=== PATIENT | male | born 1950 | race Caucasian/White ===

== ENCOUNTER 2023-07-28 10:00 | Outpatient (OUT) | payer MEDICARE, OTHER, SELFPAY ==
--- NOTE | 2023-07-28 10:08 | ECG_ITS ---
[facility] Test Date: 2023-07-28 Pat Name: MONTSE MARTINEZ Department: Room: - Gender: Male Event Set Up Specialist: : 1950 Requested By: MARIN DAHL Order Number: [id number] Reading MD: EVELYNE ORDONEZ Measurements Intervals [place] Rate: 52 P: 50 AK: 188 QRS: 34 QRSD: 109 T: 35 QT: 424 QTc: 395 Interpretive Statements SINUS BRADYCARDIA No previous ECG available for comparison Electronically Signed On 07-29-2023 7:09:12 EST by EVELYNE ORDONEZ
--- NOTE | 2023-07-28 10:49 | PM.PRESUREVA ---
History of Present Illness History of Present Illness Chief complaint: L KIDNEY STONE Narrative: Patient presents for preadmission testing. The patient states in early June he had an episode of abdominal pain, flank pain, and nausea. It was determined that the patient had kidney stones. The patient states since that time he's had a few twinges of flank pain, but really has not had any urinary complaints. He denies hematuria, dysuria, fever, nausea, vomiting, or any other complaints. Review of Systems ROS Narrative REVIEW OF SYSTEMS: Negative except as stated in HPI, ten or more systems reviewed. Constitutional: No fever , chills, weakness ENT: No sore throat or epistaxis Cardiovascular: No edema, chest pain, palpitations, or activity intolerance Respiratory: No shortness of breath, cough, or wheezing Musculoskeletal: No joint pain or swelling Gastrointestinal: No abdominal pain, constipation, diarrhea, or vomiting Genitourinary: No dysuria or hematuria Neurological: No numbness, tingling, weakness, or headache Psychiatric: No mood changes PFSH PFSH Medical History (Updated 07/28/23 @ 10:31 by Queta Jordan NP) Atrial fibrillation ?I48.91 - Unspecified atrial fibrillation (ICD-10) COVID-19 ?U07.1 - COVID-19 (ICD-10) Diverticulosis ?K57.90 - Diverticulosis of intestine, part unspecified, without perforation or abscess without bleeding (ICD-10) High cholesterol ?E78.00 - Pure hypercholesterolemia, unspecified (ICD-10) History of cardioversion ?Z92.89 - Personal history of other medical treatment (ICD-10) Hypertension ?I10 - Essential (primary) hypertension (ICD-10) Hypothyroidism ?E03.9 - Hypothyroidism, unspecified (ICD-10) Kidney stones ?N20.0 - Calculus of kidney (ICD-10) Seasonal allergies ?J30.2 - Other seasonal allergic rhinitis (ICD-10) Surgical History (Updated 07/28/23 @ 10:31 by Queta Jordan NP) History of arthroscopy of shoulder ?Z98.890 - Other specified postprocedural states (ICD-10) History of colonoscopy ?Z98.890 - Other specified postprocedural states (ICD-10) History of hernia repair ?Z98.890 - Other specified postprocedural states (ICD-10) ?Z87.19 - Personal history of other diseases of the digestive system (ICD-10) S/P cystoscopy ?Z98.890 - Other specified postprocedural states (ICD-10) Family History (Updated 07/28/23 @ 10:31 by Queta Jordan NP) Other Cerebral hemorrhage Family history of diabetes mellitus Family history of heart disease Family history of myocardial infarction Family history of pancreatic cancer Social History (Updated 07/28/23 @ 10:25 by Queta Jordan NP) Within the past year, how often did you have a drink containing alcohol: never Score interpretation: A score less than 4 is consistent with normal alcohol consumption. Smoking status: Former smoker Non-prescribed substance use: denies use Highest level of school completed/degree received: high school graduate Meds Home Medications and Allergies Home Medications Medication Instructions Recorded Confirmed Type ascorbic acid (vitamin C) 500 mg mg PO 07/28/23 History capsule aspirin 81 mg tablet,delayed 81 mg PO DAILY 07/28/23 07/28/23 History release (Adult Aspirin Regimen) fiber cap PO 07/28/23 History levothyroxine 50 mcg tablet 50 mcg PO DAILY 07/28/23 07/28/23 History losartan 25 mg tablet 25 mg PO DAILY 07/28/23 07/28/23 History multivitamin (Daily Multi-Vitamin 1 tab PO DAILY 07/28/23 07/28/23 History tablet) rosuvastatin 20 mg tablet 20 mg PO DAILY 07/28/23 07/28/23 History saw palmetto 450 mg capsule 450 mg PO BID 07/28/23 07/28/23 History Allergies Allergy/AdvReac Type Severity Reaction Status Date / Time No Known Drug Allergies Allergy Verified 07/28/23 10:18 Exam Narrative Exam Narrative: Constitutional: Awake, alert, comfortable, well-appearing, nontoxic, interactive, vital signs as charted Head: Normocephalic, atraumatic Neck: Supple, normal appearance, normal range of motion, no meningeal signs, no lymphadenopathy Respiratory: No respiratory distress, breath sounds clear Cardiovascular: Regular rate and rhythm, strong and regular heart tones Abdomen: Nontender, normal bowel sounds, soft, no CVA tenderness Musculoskeletal: Normal gait, no swelling or edema Skin: No rashes or induration, no lesions, only visible skin inspected Neuro: No neurological deficits, normal sensation Psychiatric: Oriented ?3, normal affect Assessment and Plan Assessment and Plan (1) Kidney stones: Plan Left ESWL, possible cystoscopy, left stent placement scheduled with Dr. Coffey 08/07/2023.
[2023-07-28 11:05] LABS: Anion Gap 8.3; BUN Creatinine Ratio 18.9; Basophils Absolute Auto 0.1 10^3/uL (0.0-0.1); Basophils Percent Auto 0.7 % (0.2-2.0); Calcium 9.1 mg/dL (8.5-10.1); Carbon Dioxide 31.9 mmol/L (21.0-32.0); Chloride 105 mmol/L (98-107); Eosinophils Absolute Auto 0.2 10^3/uL (0.0-0.7); Eosinophils Percent Auto 2.8 % (0.9-7.0); Estimated GFR (African America >60 (>=60); Estimated GFR (Non-African Ame >60 (>=60); Glucose 79 mg/dL (74-106); Hematocrit 44.1 % (42.0-54.0); Hemoglobin 14.4 g/dL (14.0-18.0); Immature Granulocytes Abs Auto 0.01 10^3/uL (0.00-0.03); Immature Granulocytes Pct Auto 0.1 % (0.0-0.5); Lymphocytes Absolute Auto 2.4 10^3/uL (1.2-3.8); Lymphocytes Percent Auto 31.8 % (20.5-60.0); Mean Corpuscular HGB Conc 32.7 g/dL (29.9-35.2); Mean Corpuscular Hemoglobin 29.6 pg (25.9-34.0); Mean Corpuscular Volume 90.7 fL (80.0-94.0); Monocytes Absolute Auto 0.7 10^3/uL (0.3-0.8); Monocytes Percent Auto 9.6 % (1.7-12.0); Neutrophils Absolute Auto 4.2 10^3/uL (1.4-6.5); Platelet Count 197 10^3/uL (150-450); Potassium 4.2 mmol/L (3.5-5.1); Red Blood Count 4.86 10^6/uL (4.70-6.10); Red Cell Distribution Width 12.6 % (11.0-15.0); Sodium 141 mmol/L (136-145); White Blood Count 7.6 10^3/uL (4.0-11.0)
[2023-07-28 11:24] LABS: Partial Thromboplastin Time 25.4 sec (22.3-36.2); Prothrombin Time 10.6 sec (9.0-11.6)
== END 2023-07-28 10:01 | disposition home or self-care (01) ==
LOC: PST 10:01
PROVIDERS: PCP Family Medicine; Visit Provider Urology
DX: Z01.810 Encounter for preprocedural cardiovascular examination (principal); Z01.812 Encounter for preprocedural laboratory examination; N20.0 Calculus of kidney
CPT/HCPCS: 36415; 80048; 85025; 85610; 85730; 93005; G0463

== ENCOUNTER 2023-08-07 09:53 | Day surgery (SDC) | payer MEDICARE, OTHER, SELFPAY ==
[2023-07-28 10:43] VITALS: BP 126/82; PULSE 56; RESP 14; TEMP 36.6; O2SAT 96; BMI 28.2
[2023-08-07] VITALS (9 sets, daily range): BP systolic 111–142; BP diastolic 70–87; PULSE 56–76; RESP 12–18; TEMP 36–36.7; O2SAT 96–99; BMI 28.0
--- NOTE | 2023-08-07 10:08 | XR_ITS ---
[address] [address] Patient Name: MONTSE MARTINEZ MRN: [id number] date: 1950 Sex: M Assigned Patient Location: [facility] Current Patient Location: [facility] Accession/Order Number: [id number] Exam Date: 08/07/2023 10:02 Report Date: 08/07/2023 10:38 At the request of: MARIN DAHL Procedure: XR abdomen 1V EXAM: XR abdomen 1V HISTORY: KIDNEY STONES COMPARISON: None. TECHNIQUE: AP view of the abdomen. FINDINGS: Nonobstructive bowel gas pattern is noted. There is a 8 mm calculus in the left renal region. The osseous structures are intact. XR/XR abdomen 1V IMPRESSION: Nonobstructive bowel gas pattern. Left nephrolithiasis. Electronically authenticated by: BEN VALENZUELA Date: 08/07/2023 10:38
[2023-08-07] MEDS: LACTATED RINGER'S SOLUTION 1,000 ML 50 ML IV (10:38)
[2023-08-07] MEDS: CEFAZOLIN SODIUM/DEXTROSE,ISO 1 GM/50 ML IV.SOLN IV (12:38)
--- NOTE | 2023-08-07 13:24 | PM.URSON ---
Urology Surgery Operative Note Operative Note Procedure Date: 08/07/23 Time Out Performed: yes Pre-op Diagnosis: left nephrolithiasis Post-op Diagnosis: same as pre-op Procedures performed: . #1. Left ESWL. Anesthesia: General-LMA Primary Surgeon: Isreal Coffey Complications: none Estimated blood loss (mL): 0 Findings: 1 cm dense lower pole stone Specimens: . None Indications for Procedures: this gentleman has a 1 cm left lower pole stone. He now presents for left ESWL and possible cystoscopy and stent placement. He has signed an informed consent for these procedures after risks were explained. Some of these risks include bleeding, perinephric hematoma, infection and anesthesia to name a few Detailed description of Procedure: The patient was brought to the Operating Room and placed on Siemens electromagnetic lithotripsy treatment table in the supine position. SCDs were placed on their lower extremities and turned on and functioning during the entire case. Timeout was done by all parties in the room. We all agreed upon the patient's identification and the planned procedures for this patient. General Anesthesia was then administered via LMA. Treatment head was then brought to the patient's correct side. While using flourscopy the stone was identified and lined up into the crosshairs. We then began applying shocks At power level II.0 and increased to maximum power level of 3.5.intermittent fluoroscopy showed that the stone steadily fragmented. We applied a total of 3000 shocks to this stone and had satisfactory fragmentation by the end of the procedure. The procedure was then terminated. He was then transferred to a [facility] bed and wheeled to PACU in stable condition.
--- NOTE | 2023-08-07 13:36 | PC.NURSE ---
Martha area left flank
--- NOTE | 2023-08-07 14:03 | PC.NURSE ---
No chanage in assessment of left flank area from initial assessment
--- NOTE | 2023-08-07 14:30 | PC.NURSE ---
Denies urge to void at this time
--- NOTE | 2023-08-07 15:07 | PC.NURSE ---
Up to bathroom and voids brown colored urine without clots or calculi; urine strained
== END 2023-08-07 15:08 | disposition home or self-care (01) ==
PROVIDERS: PCP Family Medicine; Visit Provider Urology
PROC: (CPT 50590; principal; 2023-08-07 11:20)
DX: N20.0 Calculus of kidney (principal); M19.90 Unspecified osteoarthritis, unspecified site; E78.5 Hyperlipidemia, unspecified; E05.90 Thyrotoxicosis, unspecified without thyrotoxic crisis or storm; Z79.01 Long term (current) use of anticoagulants; I48.91 Unspecified atrial fibrillation; K57.90 Diverticulosis of intestine, part unspecified, without perforation or abscess without bleeding; Z79.82 Long term (current) use of aspirin; N40.1 Benign prostatic hyperplasia with lower urinary tract symptoms; R31.0 Gross hematuria; Z86.010 Personal history of colon polyps; R33.9 Retention of urine, unspecified; R35.1 Nocturia; Z87.891 Personal history of nicotine dependence
CPT/HCPCS: 50590; 36415; 74018; J2704

== ENCOUNTER 2023-09-17 11:21 | Outpatient (OUT) | payer MEDICARE, OTHER, SELFPAY ==
--- OUTSIDE RECORDS SUMMARY | 2023-09-17 11:25 | XMS_ITS | CCD ---
Author Name Unknown Address [address] [place] [address] Organization [facility] Care Team Providers Care Child Nutrition Assistant Name Role Phone Edi DO Solekendell Bahena Primary Care Provider Madonna Smith MD Unavailable Edi, Sole Unavailable Fatemeh Link Unavailable Jeanette Longo Unavailable EdiSole singer DO Primary Care Provider Rustam Smith MDoun Unavailable [phone] Edi, DO Sole M. Primary Care Provider Edi, DO Sole M. Attending Provider [phone] Edi DO Solekendell Bahena Primary Care Provider Madonna Smith MD Unavailable Unavailable EDI, SOLE M Primary Care Physician [phone] Amna Anderson Unavailable Unavailable Edi, DO Sole M. Primary Care Provider MD Isreal Dahl Attending Provider [phone] Edi, DO Sole MChris Primary Care Provider MD Isreal Dahl Attending Provider [phone] DO Lev Price Attending Provider SOLE DALEY Primary Care Unavailable LEV PRICE Attending Unavailable LEV PRICE Attending Unavailable SOLE DALEY Primary Care Unavailable NABILA LERNER Referring Unava ilable LEV PRICE Attending Unavailable SOLE DALEY Primary Care Unavailable Dee, Levcammie Clark Admitting Unavailable Dee, Lev Clark Attending Unavailable Edi, Sole M. Primary Care Unavailable Edi, Sole M. Primary Care Unavailable Dahl, Isreal Admitting Unavailable Dahl, Isreal Attending Unavailable Eid, Sole M. Primary Care Unavailable Dahl, Isreal Admitting Unavailable Dahl, Isreal Attending Unavailable Edi, Sole M. Primary Care Unavailable Dee, Lev Cazaresal Admitting Unavailable Dee, Lev Clark Attending Unavailable Dee, Lev Eduardo Admitting Unavailable Dee, Lev Clark Attending Unavailable Edi, Sole M. Primary Care Unavailable COOK, Carlos Enrique P Attending Unavailable COOK, Carlos Enrique P Referring Unavailable COOK, Carlos Enrique P Admitting Unavailable COOK, Carlos Enrique P Attending Unavailable COOK, Carlos Enrique P Referring Unavailable Skylar Wright Attending Unavailable Justin Echeverria Attending Unavailable DAHL, Isreal R Attending Unavailable DAHL, Isreal R Attending Unavailable COOK, Carlos Enrique P Attending Unavailable COOK, Carlos Enrique P Attending Unavailable DAHL, Isreal R Attending Unavailable COOK, Carlos Enrique P Attending Unavailable DAHL, Isreal R Attending Unavailable COOK, Carlos Enrique P Attending Unavailable Allergies Allergy Classification Reported Allergen(s) Allergy Type Date of Onset Reaction(s) Facility (6 sources) Propafenone; Translations: [PROPAFENONE] Drug Allergy 03-13-2015 Other: See Comments [facility] Work Phone: (6 sources) Sotalol; Translations: [SOTALOL] Drug Allergy 03-13-2015 Other: See Comments [facility] Work Phone: Medications Current Medications Medication Drug Class(es) Dates Sig (Normalized) Sig (Original) acetaminophen 325 mg oral tablet (17 sources) take 2 tablets by mouth every six hours Tylenol 325 MG 2 tablets as needed Orally every 6 hrs Active acetaminophen 325 mg / oxyCODONE hydrochloride 5 mg oral tablet (1 source) Opioid Agonist Start: 09-16-2023 End: 09-19-2023 take 1 tablet by mouth every six hours Percocet 5 mg-325 mg oral tablet 1 tab(s), Oral, q6hr for 3 day(s), 12 tab(s), Refill(s) 0, [facility] [id number], 175, cm, 09/16/23 3:54:00 EST, Height/Length Dosing, 87.5, kg, 09/16/23 3:54:00 EST, Weight Dosing Start Date: 09/16/23 Stop Date: 09/19/23 Status: Ordered acetaminophen 325 mg / traMADol hydrochloride 37.5 mg oral tablet (1 source) Opioid Agonist Start: 03-17-2023 take 1 tablet by mouth every four hours Ultracet 325 mg-37.5 mg Tab 1 tab(s), Oral, q4hr, 20 tab(s), Refill(s) 0, Take 1-2 tabs q4hr PRN after the procedure, [facility] [id number], 179, cm, 03/04/23 7:43:00 EDT, Height/Length Dosing, 89, kg, 03/04/23 7:43:00 EDT, Weight Dosing Start Date: 03/17/23 Status: Ordered Ascorbic Acid (6 sources) Vitamin C Start: 06-03-2016 Vitamin C See Instructions, Refills(s) 0, Prophylaxis Start Date: 06/03/16 Status: Ordered atorvastatin 20 mg oral tablet (19 sources) HMG-CoA Reductase Inhibitor End: 11-29-2022 take 1 tablet by mouth every twenty-four hours Atorvastatin Calcium 20 mg 1 tablet Orally Once a day for 90 days Active Comment on above: Take 20 mg by mouth once daily. azithromycin 250 mg oral tablet (3 sources) Macrolide Antimicrobial Start: 03-13-2022 Azithromycin 250 MG 2 tablets on the first day, then 1 tablet daily for 4 days Orally Once a day for 5 day(s) Mar, Active Centrum (17 sources) take 1 tablet by mouth once daily Centrum 1 tablet for men Orally Daily Active Centrum Men's (6 sources) Start: 05-31-2016 take 1 tablet by mouth once daily Centrum Men's 1 tab(s), Oral, Daily, Refill(s) 0, Prophylaxis Start Date: 05/31/16 Status: Ordered cephalexin 500 mg oral capsule (1 source) Cephalosporin Antibacterial Start: 09-16-2023 take 1 capsule by mouth twice daily Keflex 500 mg Cap 500 mg = 1 cap(s), Oral, BID, # 14 cap(s), Refills(s) 0, Pharmacy: [facility] [id number], 175, cm, 09/16/23 3:54:00 EST, Height/Length Dosing, 87.5, kg, 09/16/23 3:54:00 EST, Weight Dosing Start Date: 09/16/23 Status: Ordered cholecalciferol 0.125 mg oral capsule (4 sources) Vitamin D take 1 capsule by mouth every twenty-four hours Vitamin D3 125 MCG (5000 UT) 1 capsule Orally Once a day Active cholecalciferol, vitamin D3, 350 mcg (14,000 unit) cap Take by mouth. 0 Active Comment on above: Take by mouth. ciprofloxacin 500 mg oral tablet (4 sources) Quinolone Antimicrobial Start: take 1 tablet by mouth twice daily Cipro 500 mg Tab 500 mg = 1 tab(s), Oral, BID, Start 3 days prior to the procedure, # 14 tab(s), Refills(s) 0, Pharmacy: [facility] [id number], 179, cm, 03/04/23 7:43:00 EDT, Height/Length Dosing, 89, kg, 03/04/23 7:43:00 EDT, Weight Dosing Start Date: 03/17/23 Status: Ordered Start: 02-17-2023 take 1 tablet by alcon once daily Cipro 500 mg Tab 500 mg = 1 tab(s), Oral, As Directed, Take 1 tab the day prior to procedure then 1 tab the day of procedure after procedure is complete, # 2 tab(s), Refills(s) 0, Pharmacy: [facility] [id number], 179, cm, 02/17/23 10:13:00 EDT, Height/Length Dosing... Start Date: 02/17/23 Status: Ordered diazePAM 10 mg oral tablet (1 source) Benzodiazepine Start: 03-17-2023 Valium 10 mg Tab 10 mg = 1 tab(s), Oral, Once, Take one hour prior to procedure, # 1 tab(s), Refills(s) 0, Pharmacy: [facility] [id number], 179, cm, 03/04/23 7:43:00 EDT, Height/Length Dosing, 89, kg, 03/04/23 7:43:00 EDT, Weight Dosing Start Date: 03/17/23 Status: Ordered Fiber (6 sources) Start: 05-31-2016 Fiber Lax 2 grams, Oral, Daily, Refills(s) 0, Prophylaxis Start Date: 05/31/16 Status: Ordered Fiber Therapy 500 mg (11 sources) take 2 tablets by mouth twice daily Fiber Therapy 500 mg 2 tablets Orally Twice a day Active ibuprofen 200 mg oral tablet (17 sources) Nonsteroidal Anti-inflammatory Drug take 1 tablet by mouth three times daily at mealtime as needed Ibuprofen 200 MG 1 tablet with food or milk as needed Orally Three times a day Active Thyroxine (20 sources) l-Thyroxine Start: 05-31-2016 levothyroxine 125 microgram, Oral, Daily, Refills(s) 0, Thyroid Start Date: 05/31/16 Status: Ordered take 1 tablet by alcon th every twenty-four hours Levothyroxine Sodium 50 MCG 1 tablet Orally Once a day for 90 days Active take 1 tablet by mouth once georgette y levothyroxine (SYNTHROID) 25 mcg tablet Take 25 mcg by mouth once daily. 0 Active Comment on above: Take 25 mcg by mouth once daily. losartan potassium 25 mg oral tablet (8 sources) Angiotensin 2 Receptor Ad Start: 02-17-2023 take 1 mg by mouth once daily losartan 25 mg Tab mg tab(s), Oral, Daily Start Date: 02/17/23 Status: Ordered Start: 02-07-2023 take 1 tablet by alcon th once daily losartan (COZAAR) 25 mg tablet Indications: Primary hypertension Take 1 tablet by mouth once daily. 90 tablet 3 02/07/2023 Active take 1 tablet by alcon th every twenty-four hours Losartan Potassium 25 MG 1 tablet Orally Once a day Active Comment on above: Take 1 tablet by alcon th once daily. rosuvastatin calcium 20 mg oral tablet (10 sources) HMG-CoA Reductase Inhibitor Start: 3 take 1 mg by mouth once daily rosuvastatin 20 mg Tab mg tab(s), Oral, Daily Start Date: 02/17/23 Status: Ordered Comment on above: Take 1 tablet by alcon th daily at bedtime. Saw [place] 450 MG (17 sources) take 1 capsule by mouth twice daily Saw [place] 450 MG One capsule Orally Twice Daily Active Saw palmetto extract (6 sources) Start: 6 take 450 mg by mouth once daily saw palmetto 450 mg, Oral, Daily, Refill(s) 0, Prophylaxis Start Date: 05/31/16 Status: Ordered tamsulosin hydrochloride 0.4 mg oral capsule (2 sources) alpha-Adrenergic Ad Start: 3 take 1 capsule by mouth once daily Flomax 0.4 mg Cap 0.4 mg = 1 cap(s), Oral, Daily, # 10 cap(s), Refills(s) 0, Pharmacy: [facility] [id number], 175, cm, 09/16/23 3:54:00 EST, Height/Length Dosing, 87.5, kg, 09/16/23 3:54:00 EST, Weight Dosing Start Date: 09/16/23 Status: Ordered Vitamin C 500 MG (17 sources) Vitamin C 500 MG Orally Active Zofran ODT 4 mg Tab-Dis (1 source) Start: 4 take 1 tablet by mouth every eight hours Zofran ODT 4 mg Tab-Dis 4 mg = 1 tab(s), Oral, q8hr, # 12 tab(s), Refills(s) 0, Pharmacy: [facility] [id number], 175, cm, 09/16/23 3:54:00 EST, Height/Length Dosing, 87.5, kg, 09/16/23 3:54:00 EST, Weight Dosing Start Date: 09/16/23 Status: Ordered Completed/Discontinued Medications Medication Drug Class(es) Dates Sig (Normalized) Sig (Original) aspirin 325 mg delayed release oral tablet (20 sources) Platelet Aggregation Inhibitor, Nonsteroidal Anti-inflammatory Drug Start: 12-25-2015 take 1 tablet by mouth once daily aspirin, enteric coated (ECOTRIN) 325 mg EC tablet Take 1 tablet by mouth once daily. 1 tablet 0 12/25/2015 Active Start: 02-27-2010 take 81 mg by mouth once daily aspirin 81 mg, Oral, Daily, Refills(s) 0, Prophylaxis Start Date: 02/27/10 Status: Ordered Start: 02-27-2010 take 325 mg by mouth once georgette y aspirin 325 mg, Oral, Daily, Refills(s) 0, Prophylaxis Start Date: 02/27/10 Status: Ordered take 1 tablet by alcon th every twenty-four hours Aspirin 81 81 MG 1 tablet Orally Once a day Active take 1 tablet by alcon th three times weekly Aspirin 325 mg 325 mg one tab orally Three times a week Active take 1 tablet by alcon th once daily Aspirin 325 mg 325 mg one tab orally daily Active Comment on above: Take 1 tablet by alcon once daily. fluticasone propionate 0.05 mg/actuat metered dose nasal spray (4 sources) Corticosteroid Start: take 2 spray(s) nasal route once daily Fluticasone Propionate 50 MCG/ACT 2 spray in each nostril Nasally Once a day for 30 day(s) Mar, Not-Taking meloxicam 15 mg oral tablet (2 sources) Nonsteroidal Anti-inflammatory Drug End: take 1 tablet by mouth once daily meloxicam (MOBIC) 15 mg tablet Take 15 mg by mouth once daily. 0 05/07/2022 Discontinued Comment on above: Take 15 mg by mouth once daily. methylcellulose 500 mg oral tablet (14 sources) take 2 tablets by mouth once daily Methylcellulose, Laxative, 500 mg tab Take 1,000 mg by mouth once daily. 0 Active take 1 tablet by [facility] every twelve hours Methylcellulose, Laxative, (FIBER THERAP Y, M-CELLULOSE,) 500 mg tab Take by mouth q 12 HR. 0 Active take 2 tablets by [facility] every twelve hours Fiber Therapy 500 mg 2 tablets Orally Tw ice a day Active Comment on above: Take 1,000 mg by alcon once daily. Take by mouth q 12 H R. MULTIVITS,CA,MIN/IRON/ FA/LYCOP (CENTRUM MEN ORAL) (5 sources) take 1 tablet by mouth once daily MULTIVITS,CA,MIN/IRON /FA/LYCOP (CENTRUM MEN ORAL) Take 1 tablet by mouth once daily. 0 Active Comment on above: Take 1 tablet by alcon once daily. [place]-3 Fatty Acids 500 mg cap (3 sources) take 1 capsule by mouth once daily [place]-3 Fatty Acids 500 mg cap Take 500 mg by mouth once daily. 0 Active Comment on above: Take 500 mg by mouth once daily. SAW PALMETTO ORAL (4 sources) SAW PALMETTO ORA L Take by mouth twice daily. Take one tab po bid 0 Active Comment on above: Take by mouth twice daily. Take one tab po bid koclico-jnjn-uqokv-ore g-capryl 100 mg-150 mg- 50 mg-150 mg cap (3 sources) mtlxvwe-pfkk-xgl ve-or eg-capryl 100 mg-150 mg- 50 mg-150 mg cap Take by mouth. 0 Active Comment on above: Take by mouth. Problems Active Problems Problem Classification Problem Date Documented Date Episodic/Chronic Calculus of urinary tract (3 sources) Calculus of kidney; Translations: [Kidney stone] Onset: 06-17-2023 Episodic Cardiac dysrhythmias (20 sources) Atrial fibrillation; Translations: [Unspecified atrial fibrillation] Onset: 02-27-2010 03-13-2015 Chronic Diabetes mellitus without complication (19 sources) Impaired fasting glycemia; Translations: [Impaired fasting glucose] Onset: 06-04-2021 Resolved: 06-04-2021 Episodic Disorders of lipid metabolism (20 sources) Pure hypercholesterolemia; Translations: [Pure hypercholesterolemia, unspecified] Onset: 06-04-2021 Resolved: 06-04-2021 Chronic Diverticulosis and diverticulitis (6 sources) Diverticular disease 06-14-2021 Chronic Essential hypertension (2 sources) Essential hypertension; Translations: [Essential (primary) hypertension] Onset: 02-25-2023 Chronic Fracture of upper limb (1 source) Fracture at wrist and/or hand level; Translations: [Hydronephrosis with renal and ureteral calculous obstruction] Onset: 06-24-2023 Episodic Genitourinary symptoms and ill-defined conditions (10 sources) Blood in urine; Translations: [Gross hematuria] Onset: 04-07-2023 Episodic Hemorrhoids (6 sources) Hemorrhoids 06-14-2021 Episodic Hyperplasia of prostate (10 sources) Benign prostatic hypertrophy with outflow obstruction; Translations: [Benign prostatic hyperplasia with lower urinary tract symptoms] Onset: 02-17-2023 Chronic Immunizations and screening for infectious disease (3 sources) Encounter for immunization; Translations: [Flu vaccine need Z23] Onset: 06-04-2021 Resolved: 06-04-2021 Episodic Malaise and fatigue (1 source) Other fatigue Episodic Mycoses (17 sources) Onychomycosis; Translations: [Tinea unguium] Episodic Osteoarthritis (6 sources) Arthritis 02-17-2023 Chronic Other and unspecified benign neoplasm (6 sources) History of polyp of colon 05-22-2021 Episodic Other and unspecified benign neoplasm (6 sources) Polyp of colon 06-14-2021 Episodic Other circulatory disease (1 source) Elevated blood-pressure reading without diagnosis of hypertension; Translations: [Elevated blood-pressure reading, without diagnosis of hypertension] Episodic Other connective tissue disease (6 sources) H/O: arthritis 02-13-2010 Episodic Other connective tissue disease (6 sources) Rotator cuff syndrome 11-19-2013 Episodic Other diseases of kidney and ureters (2 sources) Urinary tract obstruction; Translations: [Other obstructive and reflux uropathy] Onset: 02-17-2023 Episodic Other lower respiratory disease (20 sources) Solitary nodule of lung; Translations: [Solitary pulmonary nodule] Episodic Other nutritional; endocrine; and metabolic disorders (2 sources) Body mass index 25-29 - overweight; Translations: [Overweight] Episodic Other screening for suspected conditions (not mental disorders or infectious disease) (2 sources) Encounter for screening for malignant neoplasm of prostate; Translations: [Prostate cancer screening Z12.5] Onset: 06-04-2021 Resolved: 06-04-2021 Episodic Thyroid disorders (6 sources) Hyperthyroidism 02-17-2023 Chronic Unclassified (1 source) Obstructive hydronephrosis 06-18-2023 Past or Other Problems Problem Classification Problem Date Documented Da te Episodic/Chronic Other circulatory disease (1 source) Elevated blood-pressure reading, without diagnosis of hypertension; Translations: [Elevated blood pressure reading without diagnosis of hypertension R03.0] Onset: 06-04-2021 Resolved: 06-04-2021 Episodic Other lower respiratory disease (2 sources) Unspecified acute lower respiratory infection Onset: 03-13-2022 Resolved: 03-20-2022 Episodic Unclassified (1 source) Cough R05.9 Onset: 04-08-2022 Resolved: 04-08-2022 Unclassified (6 sources) Aspirin prophylaxis 02-13-2010 Unclassified (6 sources) shoulder problems 02-18-2010 Viral infection (1 source) COVID-19 Onset: 04-08-2022 Resolved: 04-08-2022 Results Test Name Value Interpretation Reference Range Facility Auto Diffon 09-16-2023 Basophils/100 WBC (Bld) 0.6 % Normal 0.0-2.0 [facility] Comment on above: Order Comment: Order Added by Discern Expert. Performed By: #### 2 [id number], [id number], 3484597, 3122718, 3016742 ####[facility] [address] [address] Basophils/Leukocytes Auto (Bld) [Pure # fraction] 0.1 E9/L Normal 0.0-0.2 [facility] Comment on above: Order Comment: Order Added by Discern Expert. Performed By: #### 2 860469, [id number], 1609829, 2636567, 6672145 ####[address] [address] Eosinophils/100 WBC (Bld) 0.7 % Normal 0.0-8.0 [facility] Comment on above: Order Comment: Order Added by Discern Expert. Performed By: #### 2 731759, [id number], 1098528, 5507821, 6614846 ####[address] [address] Eosinophils/Leukocytes Auto (Bld) [Pure # fraction] 0.1 E9/L Normal 0.0-0.5 [facility] Comment on above: Order Comment: Order Added by Discern Expert. Performed By: #### 2 809342, 07321307, 3317962, 7163776, 8733507 ####[address] [address] Lymphocytes/100 WBC (Bld) 15.6 % Normal 14.0-50.0 [facility] Comment on above: Order Comment: Order Added by Yassine Expert. Performed By: #### 2 591058, 38523414, 2158665, 9777635, 6150490 ####[address] [address] Lymphocytes/Leukocytes Auto (Bld) [Pure # fraction] 2.0 E9/L Normal 1.0-4.0 [facility] Comment on above: Order Comment: Order Added by Yassine Expert. Performed By: #### 2 247355, 27943312, 3177208, 2375228, 5517562 ####[address] [address] Monocytes/100 WBC (Bld) 5.7 % Normal 4.0-14.0 [facility] Comment on above: Order Comment: Order Added by Discern Expert. Performed By: #### 2 183746, 02602553, 6554829, 5915613, 7888732 ####[address] [place] [address] Monocytes/Leukocytes Auto (Bld) [Pure # fraction] 0.7 E9/L Normal 0.2-1.0 [facility] Comment on above: Order Comment: Order Added by Discern Expert. Performed By: #### 2 708399, 39449195, 9633286, 7729919, 0038672 ####[address] [place] [address] Neutrophils/100 WBC (Bld) 77.4 % High 36.0-75.0 [facility] Comment on above: Order Comment: Order Added by Discern Expert. Performed By: #### 2 113856, 87613892, 6184008, 4754668, 9467067 ####[address] [place] [address] Neutrophils/Leukocytes Auto (Bld) [Pure # fraction] 9.9 E9/L High 2.0-7.5 [facility] Comment on above: Order Comment: Order Added by Discern Expert. Performed By: #### 2 804674, 61960497, 0113977, 6192720, 6224672 ####[address] [place] [address] BMPon 09-16-2023 Anion gap [Moles/Vol] 13 mmol/L Normal 6-16 [facility] Comment on above: Performed By: #### 2 267683, 87675875, 2040025, 9377302, 5287344 ####[address] [place] [address] BUN/Creat Ratio 18 No Units Normal 10-20 [facility] Comment on above: Performed By: #### 2 057319, 54902767, 6296745, 9713880, 2863841 ####[address] [place] [address] Calcium [Mass/Vol] 9.0 mg/dL Normal 8.9-11.1 [facility] Comment on above: Performed By: #### 2 937505, 50133829, 3109252, 0722245, 5561225 ####[facility] [address] [place] [address] Chloride [Moles/Vol] 100 mmol/L Low 101-111 [facility] Comment on above: Performed By: #### 2 671716, 39440495, 5345045, 2205741, 3847869 ####[facility] [address] [place] [address] CO2 [Moles/Vol] 28 mmol/L Normal 21-31 [facility] Comment on above: Performed By: #### 2 794423, 79019550, 7590530, 1335870, 7492916 ####[facility] [address] [place] [address] Creatinine [Mass/Vol] 1.2 mg/dL Normal 0.5-1.3 [facility] Comment on above: Performed By: #### 2 613941, 75081567, 1798625, 6364503, 8674967 ####[facility] [address] [place] [address] Glucose [Mass/Vol] 135 mg/dL Normal 55-199 [facility] Comment on above: Performed By: #### 2 870633, 79615317, 1678020, 9196489, 8717675 ####[facility] [address] [facility] [place] [address] Potassium [Moles/Vol] 4.0 mmol/L Normal 3.5-5.3 [facility] Comment on above: Performed By: #### 2 430752, 92470676, 4321021, 8079353, 5511585 ####[facility] [address] [place] [address] Sodium [Moles/Vol] 137 mmol/L Normal 135-145 [facility] Comment on above: Performed By: #### 2 347821, 09071089, 0152106, 6923815, 7229261 ####[facility] [address] [place] [address] Urea nitrogen [Mass/Vol] 22 mg/dL High 5-21 [facility] Comment on above: Performed By: #### 2 892295, 54685005, 7819757, 5669552, 8498508 ####[facility] [address] [place] [address] CBC w/ Auto Diffon 4 Erythrocyte distribution width (RBC) [Ratio] 13.5 % Normal 10.9-14.2 [facility] Comment on above: Performed By: #### 2 510725, 22329088, 2928052, 0838731, 2975315 ####[address] [address] Hematocrit (Bld) [Volume fraction] 45.7 % Normal 37.7-49.0 [facility] Comment on above: Performed By: #### 2 165307, 54821754, 3392372, 7002452, 6865571 ####[facility] [address] [place] [address] Hemoglobin (Bld) [Mass/Vol] 15.1 g/dL Normal 13.5-17.5 [facility] Comment on above: Performed By: #### 2 140206, 10167346, 5277408, 3696050, 6154699 ####[facility] [address] [place] [address] MCH (RBC) [Entitic mass] 28.8 pg Normal 27.0-34.0 [facility] Comment on above: Performed By: #### 2 203675, 95846759, 7469500, 4997061, 8385805 ####[facility] [address] [place] [address] MCHC (RBC) [Mass/Vol] 33.0 g/dL Normal 31.4-36.0 [facility] Comment on above: Performed By: #### 2 574511, 15136850, 4633872, 6469326, 3444077 ####[address] [place] [address] MCV (RBC) [Entitic vol] 87.5 fL Normal 80.0-100.0 [facility] Comment on above: Performed By: #### 2 704621, 36981676, 7047405, 0123766, 2636638 ####[address] [address] Platelet mean volume (Bld) [Entitic vol] 9.2 fL Normal 6.4-10.8 [facility] Comment on above: Performed By: #### 2 977971, 67198902, 8208404, 5220881, 1254591 ####[address] [address] Platelets (Bld) [#/Vol] 194.0 E9/L Normal 150.0-500.0 [facility] Comment on above: Performed By: #### 2 582980, 80699142, 1432084, 4205050, 8633249 ####[address] [address] RBC (Bld) [#/Vol] 5.2 E12/L Normal 4.3-5.9 [facility] Comment on above: Performed By: #### 2 598706, 76267428, 0604768, 1839729, 0196426 ####[address] [address] WBC corrected for nucl RBC Auto (Bld) [#/Vol] 12.7 E9/L High 4.0-11.0 [facility] Comment on above: Performed By: #### 2 836612, 37967851, 1794255, 9272628, 4183517 ####[address] [place] [address] CHEMISTRYOrdered By: Cornelius glasgow on 09-16-2023 Albumin [Mass/Vol] 4.5 g/dL Normal 3.3 - 5.0 gm/dL Remisol Chem Albumin/Globulin [Mass ratio] 1.6 {ratio} Normal 1.1 - 2.2 [facility] Alk Phos 72 [iU]/d Normal 21 - 98 Int._Unit/L Remisol Chem ALT 17 [iU]/d Normal 6 - 46 Int._Unit/L [facility] Chem Anion gap [Moles/Vol] 13 mmol/L Normal 6 - 16 mEq/L Remisol Chem AST 17 [iU]/d Normal 5 - 43 Int._Unit/L Remisol Chem Bili Direct 0.1 mg/dL Normal 0.0 - 0.4 mg/dL [facility] Chem Bili Indirect 0.6 mg/dL Normal 0.1 - 0.9 mg/dL Remisol Chem Bili Total 0.7 mg/dL Normal 0.0 - 1.1 mg/dL [facility] Calcium [Mass/Vol] 9.0 mg/dL Normal 8.9 - 11. 1 mg/dL [facility] Chloride [Moles/Vol] 100 mmol/L Low 101 - 1 11 mmol/L [facility] CO2 [Moles/Vol] 28 mmol/L Normal 21 - 31 mmol/L [facility] Creatinine [Mass/Vol] 1.2 mg/dL Normal 0.5 - 1.3 mg/dL Rem[facility] Chem Globulin (S) [Mass/Vol] 2.9 g/dL Normal 1.4 - 4.0 gm/dL [facility] Chem Glucose [Mass/Vol] 135 mg/dL Normal 55 - 199 mg/dL [facility] Chem Potassium [Moles/Vol] 4.0 mmol/L Normal 3.5 - 5.3 mmol/L [facility] Chem Protein [Mass/Vol] 7.4 g/dL Normal 6.0 - 7.8 gm/dL [facility] Sodium [Moles/Vol] 137 mmol/L Normal 135 - 145 mmol/L [facility] Chem Urea nitrogen [Mass/Vol] 22 mg/dL High 5 - 21 mg/dL [facility] Chem Urea nitrogen/Creatinine [Mass ratio] 18 mg/mg Normal 10 - 20 Remisol Chem CHEMISTRYOrdered By: SYSTEM SYSTEM on 09-16-2023 eGFR 65 mL/min/1.73 m2 Normal >=59mL/min / 1.73 m2 [facility] [place]domen/Pelvis w/o Tricia reveles 09-16-2023 CT Abdomen/Pelvis w/o Contrast Exam Date/Time: 09/16/2023 04:37 EST Reason for Exam: ABDOMINAL PAIN, ACUTE, NONLOCALIZED;Other (please specify) Report IMPRESSION: There is a 9 mm stone in the distal right ureter approximately 2 cm from the UVJ. There is moderate right hydronephrosis and hydroureter and there is stranding of the right perinephric fat worrisome for inflammation. The left kidney is within normal limits. EXAMINATION: CT Abdomen/Pelvis w/o Contrast HISTORY: ABDOMINAL PAIN, ACUTE, NONLOCALIZED COMPARISON: None TECHNIQUE: Contiguous axial CT sections of the abdomen and pelvis. No IV contrast administered. Unenhanced imaging is limited for the evaluation of some intra-abdominal and pelvic pathologies. Sagittal and coronal reformats have been obtained. All CT scans at this facility use dose modulation, iterative reconstruction, and/or weight based dosing when appropriate to reduce radiation dose to as low as reasonably achievable. FINDINGS Lung bases:Visualized lung bases show no significant pathology Liver: The visualized portions of the liver are normal in size and attenuation. There are no focal solid or cystic lesions. There is no intra or extrahepatic bile duct dilatation. Gallbladder: There are stones within the gallbladder without surrounding inflammation or pericholecystic fluid. Spleen: There are no focal lesions or calcifications in the visualized portions of the spleen. There is no splenomegaly Pancreas: The pancreas is normal in size and attenuation without focal lesions or dilatation of the pancreatic duct. Adrenal glands are negative. Kidneys: There is a 5 mm stone in the inferior pole of the right kidney. There is moderate right hydronephrosis with stranding of the perinephric fat. There is left hydroureter with a 9 mm stone in the distal right ureter, approximately 2 cm from the UVJ. The left kidney is normal in size and position without hydronephrosis or renal stones. Report Urinary bladder: The urinary bladder is within normal limits. Bowel: There are no distended loops of bowel. There is no CT evidence of appendicitis. The colon is within normal limits without surrounding inflammation. Nodes: No lymphadenopathy. Aorta: There is no abdominal aortic aneurysm. Peritoneum: No free fluid or free air. Pelvis: There are no solid or cystic lesions. Abdominal wall: The abdominal wall is intact. Bones :There are no acute osseous changes. Soft tissues: The soft tissues are unremarkable. Ordering Provider: Skylar Wright FINAL REPORT Dictated: 09/16/2023 8:53 am Lars Riggs MD, V. Signed (Electronic Signature): 09/16/2023 8:53 am Signed by: Lars Riggs MD, V. Transcribed by: LUIS Technologist: GARRISON Technical Comments Contrast: None Rectal Contrast Given? No Oral contrast amount in ml's: 0 Normal [facility] Consent for Treatmenton Consent for Treatment [id number] IFF Normal [facility] Discharge Instructionson Discharge Instructions [id number] TIFF Normal [facility] ED Clinical Summaryon 2023 ED Clinical Summary (Inserted Image. Lynnette ble to display) [place] [address] ED Clinical Summary Person Information Name: MONTSE MARTINEZ Bernadette/[facility] Age: 73 Years : 1950 Sex: Male Language: Mauritian PCP: SOLE DALEY DO Marital Status: Visit Id: Visit Reason: Abdominal pain; Nausea; Flank pain; RIGHT SIDE ABD PAIN Speciality: Acuity: 3 Enc Type: Emergency Med Service: Emergency Arrival: 09/16/2023 03:46:00 Discharge: 09/16/2023 06:23:10 LOS: 000 02:37 Checkin: 09/16/2023 03:46:00 Checkout: 09/16/2023 06:23:10 Dispo Type: Home (Routine DC) EVENTS: Event Name Event Status Request Date/Time Start Date/Time Complete Date/Time Arrive Complete 09/16/2023 03:46:00 09/16/2023 03:46:00 09/16/2023 03:46:00 Document Home Meds Request 09/16/2023 03:46:00 Triage Complete 09/16/2023 03:46:00 09/16/2023 03:54:12 09/16/2023 03:54:12 Dr Exam Complete 09/16/2023 03:48:27 09/16/2023 03:48:27 09/16/2023 03:48:27 Registration Complete 09/16/2023 03:48:27 09/16/2023 03:51:13 09/16/2023 03:51:13 Reg Complete Request 09/16/2023 03:51:13 Reg Bed Request Complete 09/16/2023 03:51:13 09/16/2023 03:51:13 09/16/2023 03:51:13 Bed Assign Complete 09/16/2023 03:55:22 09/16/2023 03:55:22 09/16/2023 03:55:22 RN Exam Complete 09/16/2023 03:55:22 09/16/2023 04:17:06 09/16/2023 04:17:06 Meds Admin Complete 09/16/2023 04:01:51 09/16/2023 04:09:43 Pending Labs Complete 09/16/2023 04:01:51 09/16/2023 04:52:10 Lab Complete 09/16/2023 04:01:51 09/16/2023 04:52:10 Urine Collect Complete 09/16/2023 04:01:51 09/16/2023 04:37:10 CT Complete 09/16/2023 04:01:51 09/16/2023 04:08:33 09/16/2023 04:37:56 Pending Labs Complete 09/16/2023 04:21:07 09/16/2023 04:21:07 09/16/2023 04:42:54 Lab Complete 09/16/2023 04:21:07 09/16/2023 04:21:07 09/16/2023 04:42:54 Pending Labs Complete 09/16/2023 04:27:01 09/16/2023 04:27:01 09/16/2023 04:27:08 Lab Complete 09/16/2023 04:27:01 09/16/2023 04:27:01 09/16/2023 04:27:08 Pending Labs Complete 09/16/2023 05:51:42 09/16/2023 05:51:42 09/16/2023 05:51:43 Pending Labs Complete 09/16/2023 05:52:06 09/16/2023 05:52:06 09/16/2023 05:52:07 Meds Admin Complete 09/16/2023 06:02:32 09/16/2023 06:18:12 Discharge Complete 09/16/2023 06:05:01 09/16/2023 06:23:14 09/16/2023 06:23:14 Transfer Complete 09/16/2023 06:23:14 09/16/2023 06:23:14 09/16/2023 06:23:14 ADDRESS: [address] [place] [address] [place] [id number] PHYS DOC NOTES: MEDICAL INFORMATION: Prescriptions Given: New Medications [facility] [id number], [address] [facility] [place], [place] [id number], [phone] acetaminophen-oxycodone (Percocet 5 mg-325 mg oral tablet) 1 Tablets By Mouth every 6 hours for 3 Days. Refills: 0. ondansetron (Zofran ODT 4 mg Tab-Dis) 1 Tablets By Mouth every 8 hours. Refills: 0. Medications to Continue Taking That Have Changed [facility] [id number], [address] [place] [id number], [phone] START: tamsulosin (Flomax 0.4 mg Cap) 1 Capsules By Mouth every day. Refills: 0. Other Medications START: tamsulosin (Flomax 0.4 mg Cap) 1 Capsules By Mouth every day. Refills: 0. Medications to Continue with No Changes Other Medications ascorbic acid (Vitamin C) aspirin 81 Milligram By Mouth every day. levothyroxine 125 Microgram By Mouth every day. losartan (losartan 25 mg Tab) By Mouth every day. multivitamin with minerals (Centrum Men's) 1 Tablets By Mouth every day. polycarbophil (Fiber Lax) 2 grams By Mouth every day. rosuvastatin (rosuvastatin 20 mg Tab) By Mouth every day. saw palmetto 450 Milligram By Mouth every day. PATIENT EDUCATION INFORMATION: Instructions: Renal Colic, [id number] Follow up: With: Address: When: [facility], [address] [place] [address] Business (1) In 3 days 09/19/2023 Comments: Take the Flomax once daily. Completed the course. You can use the Percocet, Zofran every 6 hours as needed for pain and nausea. Please follow-up with your primary care doctor and urology for further evaluation management. If you have worsening pain, develop fever or any concerning symptoms please return to the ED for further treatment. With: Address: When: [address] [place] [address] [email or web address] (1) In 3 days 09/19/2023 DIAGNOSIS: Right renal stone Normal [facility] ED Note-Physicianon 09-16-19 ED Note-Physician Basic Information Time Seen: Skylar Wright DO 09/16/2023 03:48 Chief Complaint right lower back pain radiating to right lower abd pain. nausea. history of kidney stones. History of Present Illness Patient is a 73-year-old male with past medical history of hypertension, hyperlipidemia, kidney stones presenting to the ED for evaluation of right lower back pain with radiation of the right lower abdomen. Patient states the pain started around 11 PM last night with associated nausea. Patient states he does have a history of kidney stones with a lithotripsy done in June. Patient denies any fevers, chills, chest pain, shortness of breath, dizziness or lightheadedness. Review of Systems A 10 point review of systems is negative except as noted above. Medical and Surgical History: Reviewed and noted Social history: Lives at home Tobacco: Denies Physical Exam Vitals & Measurements T: 36.4 ?C(Tympanic) HR: 57(Monitored) RR: 18 BP: 157/88 SpO2: 98% HT: 175 cm WT: 87.5 kg BMI: 28.57 General: Well developed, non toxic appearing, uncomfortable appearing HEENT: Head atraumatic, Mucosa moist, hearing grossly normal Neck: No JVD, tracheal deviation Cardiac: Regular rate, rhythm, no murmurs, or gallops, 2+ radial pulses Respiratory: Lungs clear to auscultation B/L, normal respiratory effort Abdomen: Soft palpation of the right lower back, right lower quadrant no rebound or guarding, no peritoneal signs Extremities: No edema noted in the LE B/L, no tenderness to palpation Neurologic: Alert and oriented, speech clear Skin: No rashes or lesions Psych: Appropriate mood and behavior Medical Decision Making MEDICAL DECISION MAKING Number and Complexity of Problems Differential Diagnosis: [] [facility] Data External documents reviewed: [] My EKG interpretation: [] My CT interpretation: [] My X-ray interpretation: [] My Ultrasound interpretation: [] Decision rules/scores evaluated: [] Discussed with: [] Treatment and Disposition ED Course: Patient is a 73-year-old male presenting to the ED for evaluation of right-sided abdominal pain. Patient is nontoxic and able, no acute distress. Does have right lower quadrant pain medication. Laboratory evaluation is obtained, CT ab pelvis is ordered. Patient is given Toradol, Zofran, IV fluids. His laboratory evaluation reveals slight leukocytosis of 12.7 there is trace blood in his urine but otherwise no signs of infection. Patient's pain was controlled with the Toradol. On the CT imaging there is a 9 mm stone in the distal right ureter resulting in moderate right-sided hydroureteronephrosis with some nonspecific fat stranding. I discussed these findings with the patient and explained that he is very unlikely to pass the stone on his own and would recommend transfer for further urologic care. Patient states he would prefer to try this at home and follow-up with Dr. Dahl. Patient is understanding that he is unlikely to pass the stone at home. Patient's discharge home with pain medication, Flomax, Zofran. He is advised to return to the ED for any new or worsening symptoms if he develops fevers or if he has intractable pain. Shared decision making: [] Code status: [] Assessment/Plan Right renal stone (N20.0: Calculus of kidney) Orders: acetaminophen-oxycodone , 1 tab(s), Oral, q6hr for 3 day(s), 12 tab(s), Refill(s) 0, [facility] [id number], 175, cm, 09/16/23 3:54:00 EST, Height/Length Dosing, 87.5, kg, 09/16/23 3:54:00 EST, Weight Dosing ketorolac, 15 mg = 1 mL, Injection, IV Push, Once, Stop date 09/16/23 4:01:00 EST, STAT, Start date 09/16/23 4:01:00 EST, 09/16/23 4:01:00 EST morphine, 4 mg = 1 mL, Injection, IV Push, Once, Stop date 09/16/23 6:02:00 EST, STAT, Start date 09/16/23 6:02:00 EST, 09/16/23 6:02:00 EST ondansetron, 4 mg = 2 mL, Injection, IV Push, Once, Stop date 09/16/23 4:01:00 EST, STAT, Start date 09/16/23 4:01:00 EST, 09/16/23 4:01:00 EST ondansetron, 4 mg = 1 tab(s), Oral, q8hr, # 12 tab(s), Refills(s) 0, Pharmacy: [facility] [id number], 175, cm, 09/16/23 3:54:00 EST, Height/Length Dosing, 87.5, kg, 09/16/23 3:54:00 EST, Weight Dosing oxycodone, 1 EA, Tab, Oral, Once, Stop date 09/16/23 6:02:00 EST, STAT, Start date 09/16/23 6:02:00 EST Sodium Chloride 0.9% intravenous solution, 1,000 mL, Soln-IV, IV, Once, Stop date 09/16/23 4:01:00 EST, STAT, Start date 09/16/23 4:01:00 EST, Infuse over 61, minute(s) tamsulosin, 0.4 mg = 1 cap(s), Oral, Daily, # 10 cap(s), Refills(s) 0, Pharmacy: [facility] [id number], 175, cm, 09/16/23 3:54:00 EST, Height/Length Dosing, 87.5, kg, 09/16/23 3:54:00 EST, Weight Dosing Automated Diff Basic Metabolic Panel CBC w/ Auto Diff CT Abdomen/Pelvis w/o Contrast eGFR Extra Blue Tube Extra SST Tube Hepatic Function Panel UA With Cult Reflex Medications Administered Given ketorolac 15 mg/mL Inj, 15 mg, IV Push NS 1000 ml Bolus, 1000 mL, IV ondansetron 4 mg/2 mL Inj, 4 mg, IV Pus (more content not included)... Normal [facility] Comment on above: Result Comment: Elec tronically Signed By: Skylar Wright DO\Date and Time Signed: 09/16/23 06:06 EST ED Patient Education Noteon 09-16-2023 ED Patient Education Note Urology Renal Colic Renal colic is pain that is caused by a kidney stone. The pain can be sharp and very bad. It may be felt in the back, belly, side (flank), or groin. It can cause nausea. Renal colic can come and go. Follow these instructions at home: Medicines ? Take daak-rjc-hhpxyny and prescription medicines only as told by your doctor. ? Do not drive or use heavy machinery while taking prescription pain medicine. Eating and drinking ? Drink enough fluid to keep your pee (urine) pale yellow. You may be told to drink at least 8?10 glasses of water each day. Follow instructions from your doctor. ? If told, change your diet. This may include eating: ? Less salt (sodium). Eat less than 2 grams (2,000 mg) of salt per day. ? Less meat, poultry, fish, and eggs. ? More fruits and vegetables. ? Try not to eat spinach, rhubarb, sweet potatoes, or nuts. ? Follow instructions from your doctor about what foods and drinks to avoid. General instructions ? Keep all follow-up visits as told by your doctor. This is important. ? Collect pee samples as told by your doctor. ? Strain your pee every time you pee, as told by your doctor. Use the strainer that your doctor recommends. ? Do not throw out the kidney stone after passing it. Keep the stone so it can be tested by your doctor. Contact a doctor if: ? You have a fever or chills. ? Your pee smells bad or looks cloudy. ? You have pain or burning when you pee. Get help right away if: ? The pain in your side (flank) or your groin suddenly gets worse. ? You get confused. ? You pass out. Summary ? Renal colic is pain that is caused by a kidney stone. ? Take flgk-iwa-wkzzjho and prescription medicines only as told by your doctor. ? Drink enough fluid to keep your pee pale yellow. You may be told to drink at least 8?10 glasses of water each day. Follow instructions from your doctor. ? Strain your pee every time you pee, as told by your doctor. Use the strainer that your doctor recommends. ? Do not throw out the kidney stone after passing it. Keep the stone so it can be tested by your doctor. This information is not intended to replace advice given to you by your health care provider. Make sure you discuss any questions you have with your health care provider. Document Revised: 04/29/2022 Document Reviewed: 04/29/2022 [employer] Patient Education ? 2022 [employer]. Normal [facility] ED Patient Summaryon 024 ED Patient Summary (Inserted Image. Lynnette ble to display) [address] [address] Patient Discharge Instructions Person Information Name: MONTSE MARTINEZ Age: 73 Years Arrival Date: 09/16/2023 03:46:00 Discharge Diagnosis: Right renal stone Primary Care Physician: SOLE DALEY DO Provider Information Primary Provider: Skylar Wright DO Advanced Test Driller:None The exam and treatment you received in the Emergency Department were for an urgent problem and are not intended as complete care. It is important that you follow up with a doctor, nurse practitioner, or physician?s assistant project engineer for ongoing care. If your symptoms become worse or you do not improve as expected and you are unable to reach your usual health care provider, you should return to the Emergency Department. We are available 24 hours a day. MICHELLEMONTSE has been given the following list of patient education materials, prescriptions and follow-up instructions: Follow-up Instructions: With: Address: When: [facility], [address] , [place] [address] Business (1) In 3 days 09/19/2023 Comments: Take the Flomax once daily. Completed the course. You can use the Percocet, Zofran every 6 hours as needed for pain and nausea. Please follow-up with your primary care doctor and urology for further evaluation management. If you have worsening pain, develop fever or any concerning symptoms please return to the ED for further treatment. With: Address: When: SOLE DALEY [facility] MELVA MELÉNDEZ, [facility] [address] [place] [address] Business (1) In 3 days 09/19/2023 In the event that this physician does not participate in your insurance network, please consult with your insurance company to find a nearby participating provider. Patient Education Materials: Renal Colic, Rrvx-nn-Qmik A MESSAGE TO ALL PATIENTS REGARDING OPIOIDS PRESCRIPTION OPIOIDS: WHAT YOU NEED TO KNOW Prescription opioids can be used to help relieve vjmtfkfk-jc-pyhvig pain and are often prescribed following a surgery or injury, or for certain health conditions. These medications can be an important part of the treatment but also come with serious risks. It is important to work with your healthcare provider to make sure you are getting the safest, most effective care. WHAT ARE THE RISKS AND SIDE EFFECTS OF OPIOID USE? Prescription opioids carry serious risks of addiction and overdose, especially with prolonged use. An opioid overdose, often marked by slowed breathing, can cause sudden . The use of prescription opioids can have a number of side effects as well, even when taken as directed: ? Tolerance?meaning you might need to take more of the medication for the same pain relief ? Physical dependence?meaning you have symptoms of withdrawal when a medication is stopped ? Increased sensitivity to pain ? Constipation ? Nausea, vomiting, and dry mouth ? Sleepiness and dizziness ? Confusion ? Depression ? Low levels of testosterone that can result in lower sex drive, energy, and strength ? Itching and sweating RISKS ARE GREATER WITH: ? History of drug misuse, substance use disorder, or overdose ? Mental health conditions (such as depression or anxiety) ? Sleep apnea ? Older age (65 years and older) ? Avoid alcohol while taking prescription opioids. Also, unless specifically advised by your health care provider, medications to avoid include: ? Benzodiazepines (such as Xanax or Valium) ? Muscle relaxants (such as Soma or Flexeril) ? Hypnotics (such as Ambien or Lunesta) ? Other prescription opioids KNOW YOUR OPTIONS Talk to your health care provider about ways to manage your pain that don?t involve prescription opioids. Some of these options may actually work better and have fewer risks and side effects. Options may include: ? Pain relievers such as acetaminophen, ibuprofen, and naproxen ? Some medication that are also used for depression or seizures ? Physical therapy and exercise ? Cognitive behavioral therapy, a psychological, goal-directed approach, in which patients learn how to modify physical, behavioral, and emotional triggers of pain and stress. IF YOU ARE PRESCRIBED OPIOIDS FOR PAIN: ? Never take opioids in greater amounts or more often than prescribed. ? Follow up with your primary health care provider. o Work together to create a plan on how to manage your pain. o Talk about ways to help manage your pain that don?t involve prescription opioids. o Talk about any and all concerns and side effects. ? Help prevent misuse and abuse o Never sell or share prescription opioids. o Never use another person?s prescription opioids. ? Store prescription opioids in a secure place and out of reach of others (this may include visitors, children, friends, and family). ? Safely dispose of unused prescription opioids (more content not included)... Normal [facility] HEMATOLOGYOrdered By: SYSTEM SYSTEM on 09-16-2023 Basophils/100 WBC (Bld) 0.6 % Normal 0.0 - 2.0 % [facility] Basophils/Leukocytes Auto (Bld) [Pure # fraction] 0.1 E9/L Normal 0.0 - 0.2 E9/L [facility] Eosinophils/100 WBC (Bld) 0.7 % Normal 0.0 - 8.0 % [facility] Eosinophils/Leukocytes Auto (Bld) [Pure # fraction] 0.1 E9/L Normal 0.0 - 0.5 E9/L [facility] Lymphocytes/100 WBC (Bld) 15.6 % Normal 14.0 - 50.0 % [facility] Lymphocytes/Leukocytes Auto (Bld) [Pure # fraction] 2.0 E9/L Normal 1.0 - 4.0 E9/L [facility] Monocytes/100 WBC (Bld) 5.7 % Normal 4.0 - 14.0 % [facility] Monocytes/Leukocytes Auto (Bld) [Pure # fraction] 0.7 E9/L Normal 0.2 - 1.0 E9/L [facility] Neutrophils/100 WBC (Bld) 77.4 % High 36.0 - 75.0 % [facility] Neutrophils/Leukocytes Auto (Bld) [Pure # fraction] 9.9 E9/L High 2.0 - 7.5 E9/L [facility] HEMATOLOGYOrdered By: Cornelius Gordon on 09-16-2023 Erythrocyte distribution width (RBC) [Ratio] 13.5 % Normal 10.9 - 14.2 % [facility] Hematocrit (Bld) [Volume fraction] 45.7 % Normal 37.7 - 49.0 % [facility] Hemoglobin (Bld) [Mass/Vol] 15.1 g/dL Normal 13.5 - 17.5 gm/dL [facility] MCH (RBC) [Entitic mass] 28.8 pg Normal 27.0 - 34.0 pg [facility] MCHC (RBC) [Mass/Vol] 33.0 g/dL Normal 31.4 - 36.0 gm/dL [facility] MCV (RBC) [Entitic vol] 87.5 fL Normal 80.0 - 100.0 fL [facility] Platelet mean volume (Bld) [Entitic vol] 9.2 fL Normal 6.4 - 10.8 fL [facility] Platelets (Bld) [#/Vol] 194.0 E9/L Normal 150.0 - 500.0 E9/L [facility] RBC (Bld) [#/Vol] 5.2 E12/L Normal 4.3 - 5.9 E12/L [facility] WBC corrected for nucl RBC Auto (Bld) [#/Vol] 12.7 E9/L High 4.0 - 11.0 E9/L [facility] Hep Func Panelon 09-16-2023 Albumin [Mass/Vol] 4.5 g/dL Normal 3.3-5.0 [facility] Comment on above: Performed By: #### 2 [id number], [id number], [id number], [id number], [id number] ####[facility] [id number] [place] [address] Albumin/Globulin [Mass ratio] 1.6 {ratio} Normal 1.1-2.2 [facility] Comment on above: Performed By: #### 2 [id number], [id number], [id number], [id number], [id number] ####[facility] [address] [place] [address] Alk Phos 72 Int._Unit/L Normal 21-98 [facility] Comment on above: Performed By: #### 2 [id number], [id number], [id number], [id number], [id number] ####[place] [address] [place] [address] ALT 17 Int._Unit/L Normal 6-46 [facility] Comment on above: Performed By: #### 2 [id number], [id number], [id number], [id number], [id number] ####[place] [address] [place] [address] AST 17 Int._Unit/L Normal 5-43 [facility] Comment on above: Performed By: #### 2 [id number], [id number], [id number], [id number], [id number] ####[facility] [address] [place] [address] Bili Direct 0.1 mg/dL Normal 0.0-0.4 [facility] Comment on above: Performed By: #### 2 [id number], [id number], [id number], [id number], [id number] ####[facility] [address] [place] [address] Bili Indirect 0.6 mg/dL Normal 0.1-0.9 [facility] Comment on above: Performed By: #### 2 [id number], [id number], [id number], [id number], [id number] ####[facility] [address] [place] [address] Bili Total 0.7 mg/dL Normal 0.0-1.1 [facility] Comment on above: Performed By: #### 2 246474, [id number], 8117557, 5004534, [id number] ####[facility] [address] [place] [address] Globulin (S) [Mass/Vol] 2.9 g/dL Normal 1.4-4.0 [facility] Comment on above: Performed By: #### 2 [id number], [id number], [id number], [id number], [id number] ####[facility] [address] [place] [address] Protein [Mass/Vol] 7.4 g/dL Normal 6.0-7.8 [facility] Comment on above: Performed By: #### 2 [id number], [id number], [id number], [id number], [id number] ####[facility] [address] [place] [address] RAD - Preliminary Cat Scan R eporton 09-16-2023 RAD - Preliminary Cat Scan Report [id number]#1.00 TIFF Normal [facility] UA With Cult Reflexon 2023 Bacteria LM Ql (Urine sed) TRACE Normal Trace [facility] Comment on above: Performed By: #### 1 [id number] #### [facility] [address] [place] [address] Bilirubin Ql (U) Negative Normal Negative [facility] Comment on above: Performed By: #### 1 [id number] #### [facility] [address] [place] [address] Clarity (U) CLEAR Normal Clear [facility] Comment on above: Performed By: #### 1 [id number] #### [facility] [address] [place] [address] Color (U) YELLOW Normal Yellow [facility] Comment on above: Performed By: #### 1 [id number] #### [facility] [address] [place] [address] Epithelial cells.squamous LM.HPF (Urine sed) [#/Area] 0-2 Normal 0-2 [facility] Comment on above: Performed By: #### 1 [id number] #### [facility] [address] [place] [address] Glucose Test strip (U) [Mass/Vol] Negative Normal Negative [facility] Comment on above: Performed By: #### 1 [id number] #### [facility] [address] [place] [address] Hemoglobin Ql (U) TRACE Abnormal Negative [facility] Comment on above: Performed By: #### 1 [id number] #### [facility] [address] [place] [address] Ketones (U) [Mass/Vol] Negative Normal Negative [facility] Comment on above: Performed By: #### 1 [id number] #### [facility] [address] [place] [address] Tibes.plasma/Tibes .RBC (Bld) [Mass ratio] 0-3 Normal 0-3 [facility] Comment on above: Performed By: #### 1 [id number] #### [facility] [address] [place] [address] Mucus Ql (Urine sed) TRACE Normal [facility] Comment on above: Performed By: #### 1 [id number] #### [facility] [address] [place] [address] Nitrite Ql (U) Negative Normal Negative [facility] Comment on above: Performed By: #### 1 [id number] #### [facility] [address] [place] [address] pH (U) 6.0 [pH] Invalid Interpretation Code 5.0-9.0 [facility] Comment on above: Performed By: #### 1 [id number] #### [facility] [address] [place] [address] Protein (U) [Mass/Vol] 1+ Abnormal Negative [facility] Comment on above: Performed By: #### 1 [id number] #### [facility] [address] [place] [address] Specific gravity (U) [Rel density] >=1.030 Invalid Interpretation Code 1.005-1.030 [facility] Comment on above: Performed By: #### 1 [id number] #### [facility] [address] [place] [address] Type of Urine collection method Clean Catch Normal [facility] Comment on above: Performed By: #### 1 [id number] #### [facility] [address] [place] [address] Urobilinogen Qn (U) 0.2 {Anthony'U}/dL Normal 0.0-1.0 [facility] Comment on above: Performed By: #### 1 [id number] #### [facility] [address] [place] [address] WBC Auto Ql (U) Negative Normal Negative [facility] Comment on above: Performed By: #### 1 [id number] #### [facility] [address] [place] [address] WBC LM.HPF (Urine sed) [#/Area] 0-5 Normal 0-5 [facility] Comment on above: Performed By: #### 1 [id number] #### [facility] [address] [place] [address] URINALYSISOrdered By: Cornelius Gordon on 09-16-2023 Bacteria LM Ql (Urine sed) Trace /HPF Normal Trace/HPF [facility] UA Auto SS Bilirubin Ql (U) Negative (09/16/23 4:06 AM) Normal Negative [facility] UA Auto SS Clarity (U) Clear (09/16/23 4:06 AM) Normal Clear [facility] UA Auto SS Color (U) Yellow (09/16/23 4:06 AM) Normal Yellow [facility] UA Auto SS Epithelial cells.squamous LM.HPF (Urine sed) [#/Area] 0-2 /HPF Normal 0-2/HPF [facility] UA Aut o SS Glucose Test strip (U) [Mass/Vol] Negative (09/16/23 4:06 AM) Normal Negative [facility] UA Auto SS Hemoglobin Ql (U) Trace *ABN* (09/16/23 4:06 AM) Invalid Interpretation Code Negative [facility] UA Auto SS Ketones (U) [Mass/Vol] Negative (09/16/23 4:06 AM) Normal Negative [facility] UA Auto SS Tibes.plasma/Tibes .RBC (Bld) [Mass ratio] 0-3 /HPF Normal 0-3/HPF [facility] UA Auto SS Mucus Ql (Urine sed) Trace (09/16/23 4:06 AM) Normal [facility] UA Auto SS Nitrite Ql (U) Negative (09/16/23 4:06 AM) Normal Negative [facility] UA Auto SS pH (U) 6.0 *NA* (09/16/23 4:06 AM) Invalid Interpretation Code 5.0 - 9.0 [facility] UA Auto SS Protein (U) [Mass/Vol] 1+ *ABN* (09/16/23 4:06 AM) Invalid Interpretation Code Negative [facility] UA Auto SS Specific gravity (U) [Rel density] >=1.030 *NA* (09/16/23 4:06 AM) Invalid Interpretation Code 1.005 - 1.030 [facility] UA Auto SS UA Spec Desc Clean Catch (09/16/23 4:06 AM) Normal [facility] UA Auto SS Urobilinogen Qn (U) 0.4680947 {Anthony'U}/dL Normal 0.0 - 1.0 EU/dL [facility] UA Auto SS WBC Auto Ql (U) Negative (09/16/23 4:06 AM) Normal Negative [facility] UA Auto SS WBC LM.HPF (Urine sed) [#/Area] 0-5 /HPF Normal 0-5/HPF [facility] UA Auto SS eGFRon 09-16-2023 eGFR 65 mL/min/1.73 m2 Normal >=59 [facility] Comment on above: Order Comment: Order added by Discern Expert. Performed By: #### 2 [id number], [id number], [id number], [id number], [id number] ####[facility] [address] [place] [address] RAD - MISCon 08-15-2023 RAD - MISC [id number]#1.00T IFF Normal [facility] CNOVon 08-14-2023 CNOV Office Visit (JENNIFER ) MONTSE MARTINEZ ([id number]) 1950 M Date Time Provider Department 08/14/23 9:00 AM LEV PRICE During your visit today, we recorded the following information about you: Pulse Blood pressure Weight 56/minute 149/92 86.3 kg Lev Price DO 08/14/2023 9:39 AM Signed [facility] [place] SECTION OF REGIONAL CARDIOLOGY OUTPATIENT VISIT DATE August 14, 2023 OUTPATIENT VISIT TYPE ESTABLISHED PRIMARY CARE PHYSICIAN: Sole Daley [address] [place] [address] [address] [place] [address] CHIEF COMPLAINT: Arrhythmia HISTORY OF PRESENT ILLNESS: Mr. Martinez is a 73 year old male with a past medical history of atrial fibrillation status post PVI, HLD, hypothyroid. I saw him previously on 02/07/23, per that note: ...he tells me that he is again feeling well. He denies having any: chest pain, palpitations, shortness of breath, orthopnea, LE edema, presyncope/syncope, N/V, bleeding, or other significant symptoms. Today, he states that he is feeling well. He denies having any: chest pain, palpitations, shortness of breath, orthopnea, LE edema, presyncope/syncope, N/V, bleeding, or other significant symptoms. He is eating vegetables daily. He drinks 1/2 caf about 4 cups a day. He doesn't drink any alcohol. He quit smoking 30 years ago. No drugs. He attempts to walk 2-3 miles 3x a week. Family, Mother had an enlarged heart. Brother had an ID when he was 72 years of age. 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 IMPRESSION: Encounter Diagnosis ICD-10-CM 1. Paroxysmal atrial fibrillation (HCC) I48.0 ECG COMPLETE BASIC METABOLIC PNL CBC 2. Primary hypertension I10 3. Mixed hyperlipidemia E78.2 4. Overweight (BMI 25.0-29.9) E66.3 PLAN AND RECOMMENDATIONS: Hx of PVI in 2014. No recurrence of AF since then. He was previously seen by Dr. Mike and is being managed with prophylactic aspirin presently until he has any recurrence of AF. Once he has a recurrence then will recommend further follow-up with EP however, for now he can continue with general cardiology. Consider Holter monitor at next visit. Goal BP less than 130/80 mmHg. Today BP is above goal. He believes it is controlled at home. Continue: amlodipine 10mg daily, metoprolol XL 25mg daily, and losartan 50mg daily. He should monitor his BP and bring BP log to next visit. I recommend checking BMP prior to next visit. Goal LDL is less than 70 mg/dL. Continue rosuvastatin 20 mg nightly. Monitor for myalgias. Check Lipid panel prior to next visit. Goal A1c is less than 7.0%. Currently overweight, recommend continuing heart healthy diet and exercising regularly. PHYSICAL EXAMINATION: BP 149/92 Pulse (!) 56 Wt 86.3 kg (190 lb 4.1 oz) BMI 28.10 kg/m? General: No apparent distress HEENT: normocephalic, EOMI, no JVD, no carotid bruit Heart: regular rhythm, no significant murmur Lungs: clear to auscultation Abdomen: bowel sounds present Extremities: no edema Musculoskeletal: chest wall nontender Neurological: alert and oriented Psychiatric: appropriate and cooperative Skin: no rash, cellulitis or lesions appreciated CARDIOVASCULAR MEDICINE TESTING: I have personally reviewed ECG and outside facility laboratory results ECG-08/14/23 Sinus bradycardia 53bpm, otherwise normal Outside labs 08/11/23 TC 148 HDL 52 LDL 78mg/dL Trig 91 Last EKG Result Conclusion ECG COMPLETE Collected: 08/14/2023 9:01 AM (Preliminary result) Impression: SINUS BRADYCARDIA OTHERWISE NORMAL ECG PAST MEDICAL HISTORY Diagnosis Date Atrial fibrillation (HCC) 2008 Hypercholesterolaemia Hypothyroidism Osteoarthritis Other disorders of ear(388.8) bilat hearing aids PAST SURGICAL HISTORY Procedure Laterality Date PAST SURGICAL HISTORY OF Bilateral 2009 shoulders PAST SURGICAL HISTORY OF facial reconstruction REPAIR UMBILICAL HERNIA Social History Tobacco Use Smoking status: Former Packs/day: 1.00 Years: 25.00 Additional pack years: 0.00 Total pack years: 25.00 Types: Cigarettes Quit date: 09/08/1989 Years since quittin.9 Smokeless tobacco: Never Substance Use Topics Alcohol use: No Drug use: No FAMILY HISTORY Problem Relation Age of Onset Heart Mother CAD/pacemaker Cancer Father pancreatic other (a fib [Other]) Brother ALLERGIES Allergen Reactions Propafenone Other: See Comments Not effective (pill in the pocket) Sotalol Other: See Comments Dizzeness CURRENT MEDICATIONS: losartan (COZAAR) 25 mg tablet Take 1 tablet by mouth once daily. Methylcellulose, Laxative, (FIBER THERAPY, M-CELLULOSE,) 500 mg tab Take by mouth q 12 HR. [place]-3 Fatty Acids 500 mg cap Take 500 mg by mouth once daily. guwjqxb-mgpo-dkcqb-oreg -capryl 100 mg-150 mg- 50 mg-150 mg cap Take by mouth. cholecalciferol, (more content not included)... Normal [facility] ECG COMPLETEon 08-14-2023 ECG COMPLETE Ventricular Rate : 5 3 BPM Atrial Rate : 53 BPM P-R Interval : 186 ms QRS Duration : 110 ms Q-T Interval : 422 ms QTC Calculation(Bazett) : 395 ms Calculated P Tasley : 63 degrees Calculated R Tasley : 66 degrees Calculated T Tasley : 61 degrees SINUS BRADYCARDIA OTHERWISE NORMAL ECG Confirmed by MARLYN STOUT MD ([id number]) on 08/14/2023 7:31:09 PM NAME : MONTSE MARTINEZ PID : [id number] : 1950 Gender : Male Race : ORD : [id number] Procedure Date : Aug 14 2023 09:01:32 Edit Date : Aug 14 2023 19:31:11 Diagnosis: SINUS BRADYCARDIA OTHERWISE NORMAL ECG Confirmed by MARLYN STOUT MD ([id number]) on 08/14/2023 7:31:09 PM Test Reason : I48.0 Paroxysmal atrial fibrillation (HCC) Location : 145 : [place] Overread By : MARLYN STOUT MD Edited By : MARLYN STOUT MD Referred By : , Acquired by : , Normal [facility] Cholesterol [Mass/volume] in Serum or PlasmaOrdered By: Lev Price on 08-11-2023 Cholesterol [Mass/Vol] 148 mg/dL 140-200 [facility] Comment on above: Chol less than 200 m g/dl low riskChol 201-239 mg/dl borderline riskChol 240 mg/dl and greater high risk Cholesterol in LDL Calc [Mas s/Vol]Ordered By: Lev Price on 08-11-2023 Cholesterol in LDL [Mass/Vol] 78 mg/dL 0-100 [facility] Comment on above: LDL ATP III CLASSIFI CATIONLDL less than 100 mg/dL OptimalLDL 100-129 mg/dL Near or above optimalLDL 130-159 mg/dL Borderline highLDL 160-189 mg/dL HighLDL greater than 189 mg/dL Very high Cholesterol in VLDL Calc [Ma ss/Vol]Ordered By: Lev Price on 08-11-2023 Cholesterol in VLDL [Mass/Vol] 18 mg/dL [facility] Lipid Panelon 08-11-2023 Cholesterol [Mass/Vol] 148 mg/dL Normal 140-200 [facility] Comment on above: Result Comment: Chol less than 200 mg/dl low risk Chol 201-239 mg/dl borderline risk Chol 240 mg/dl and greater high risk Performed By: #### L IPID #### [facility] [address] [place] [address] [place] Cholesterol in HDL [Mass/Vol] 52 mg/dL Normal 23-92 [facility] Comment on above: Result Comment: HDL CHOL ATP-III CLASSIFICATION Cardiovascular Risk HDL > or equal to 60 mg/dL LOW HDL < 40 mg/dL HIGH Performed By: #### L IPID #### [facility] [address] [place] [address] [place] Cholesterol.total/Chol esterol in HDL [Mass ratio] 2.8 {ratio} Normal <5.0 [facility] Comment on above: Result Comment: PERF ORMED BY: [place] [address] PATHOLOGIST CORRESPONDENCE REVIEW CLERK SU DOSS M.D. Performed By: #### L IPID #### [facility] [address] [place] [address] [place] LDL Cholesterol,Calculated 78 mg/dL Normal 0-100 [facility] Comment on above: Result Comment: LDL ATP III CLASSIFICATION LDL less than 100 mg/dL Optimal LDL 100-129 mg/dL Near or above optimal LDL 130-159 mg/dL Borderline high LDL 160-189 mg/dL High LDL greater than 189 mg/dL Very high Performed By: #### L IPID #### [facility] [address] [place] [address] [place] Triglyceride w/Reflex 91 mg/dL Normal 0-149 [facility] Comment on above: Result Comment: TRIG ATP III CLASSIFICATION TRIG less than 150 mg/dL Normal TRIG 150-199 mg/dL Borderline high TRIG 200-500 mg/dL High TRIG greater than 500 mg/dL Very high Standard traceable to the Center for Disease Conrtrol and Prevention (CDC) test method. Performed By: #### L IPID #### [facility] [address] [place] [id number] [facility] VLDL CHOLESTEROL 18 mg/dL Normal [facility] Comment on above: Performed By: #### L IPID #### [facility] [address] [place] [id number] [facility] Serum or plasma high density lipoprotein (HDL) cholesterol measurementOrdered By: Lev Price on 08-11-2023 Cholesterol in HDL [Mass/Vol] 52 mg/dL 23-92 [facility] Comment on above: HDL CHOL ATP-III CLA SSIFICATION Cardiovascular RiskHDL > or equal to 60 mg/dL LOWHDL < 40 mg/dL HIGH Serum or plasma total choles terol/high density lipoprotein (HDL) cholesterol mass ratOrdered By: Lev Price on 08-11-2023 Cholesterol.total/Chol esterol in HDL [Mass ratio] 2.8 {ratio} <5.0 [facility] Triglyceride [Mass/volume] i n Serum or PlasmaOrdered By: Lev Price on 08-11-2023 Triglyceride [Mass/Vol] 91 mg/dL 0-149 [facility] Comment on above: TRIG ATP III CLASSIF ICATIONTRIG less than 150 mg/dL NormalTRIG 150-199 mg/dL Borderline highTRIG 200-500 mg/dL High TRIG greater than 500 mg/dL Very highStandard traceable to the Center for Disease Conrtrol and Prevention (CDC) test method. Operative Reporton Operative Report [id number]#1.00T IFF Normal [facility] ECG 12-Leadon 07-30-2023 ECG 12-Lead [id number]#1.00TI FF Normal [facility] Lab Reportson 07-30-2023 Lab Reports [id number]#1.00T IFF Normal [facility] Lab Reports [id number]#1.00TI FF Normal [facility] Formson 07-15-2023 Forms [id number]#1.00T IFF Normal [facility] Consent for Procedure/Surger yon 07-08-2023 Consent for Procedure/Surgery [id number]#1.00 TIFF Normal [facility] 07-08-2023 Forms [id number]#1.00T IFF Normal [facility] RAD - MISCon 07-07-2023 RAD - MISC [id number]#1.00T IFF Normal [facility] RAD - MISCon 07-04-2023 RAD - MISC [id number]#1.00T IFF Normal [facility] Lab Reportson 07-03-2023 Lab Reports [id number]#1.00T IFF Normal [facility] Blood Urea Nitrogenon 2022 Urea nitrogen [Mass/Vol] 15 mg/dL Normal 04-01 [facility] Comment on above: Performed By: #### C REAT, BUN #### [facility] [address] [place] [address] [place] Creatinineon 06-24-2023 Creatinine [Mass/Vol] 0.94 mg/dL Normal 0.70-1.30 [facility] Comment on above: Performed By: #### C REAT, BUN #### [facility] [address] [place] [id number] [place] GFR/1.73 sq M.predicted MDRD (S/P/Bld) [Vol rate/Area] mL/min/{1.73_m2} Normal [facility] Comment on above: Result Comment: PERF ORMED BY: [place] [address] PATHOLOGIST CORRESPONDENCE REVIEW CLERK SU DOSS M.D. Performed By: #### C REAT, BUN #### [address] Creatinine [Mass/volume] in Serum or PlasmaOrdered By: Isreal Dahl on 06-24-2023 Creatinine [Mass/Vol] 0.94 mg/dL 0.70-1.30 [facility] No Panel InformationOrdered By: Isreal Dahl on 06-24-2023 Estimated GFR (CKD-EPI) > 60.0 mL/Min [facility] Creatinine Clearance (Chem N/A [facility] Urea nitrogen [Mass/volume] in Serum or PlasmaOrdered By: Isreal Dahl on 06-24-2023 Urea nitrogen [Mass/Vol] 15 mg/dL 7-25 [facility] XR IVPon 06-24-2023 XR IVP [facility] [place] [address] [place] [address] XRay Report Signed Patient: Montse Martinez MR#: [id number] 03 : 1950 Acct:[id number] Age/Sex: 73 / M ADM Date: 06/24/23 Loc: XD Room: Type: [facility] Attending Dr: Isreal Dahl MD Copies to: Isreal Dahl MD Ordering Provider: Isreal Dahl MD Date of Service: 06/24/23 XR/XR IVP: N13.2, N40.1, R33.9 INTRAVENOUS PYELOGRAM WITH TOMOGRAM HISTORY: Bilateral kidney stones one week ago. No pain or hematuria. TECHNIQUE: 100 cc of Isovue-300 administered. FINDINGS: 1 cm LEFT renal calculus. No ureteral stone. Lower pelvic surgical clips. Prompt symmetric nephrograms identified. Symmetric excretion of contrast identified. The renal calyces, renal collecting systems and ureters are symmetrical. No fixed intraluminal filling defect or narrowing identified. No ureteral dilatation is seen. The urinary bladder is distended with contrast without intraluminal filling defect or mucosal abnormality. Minimal postvoid residual identified. XR/XR IVP IMPRESSION: No obstructive uropathy. LEFT nephrolithiasis. Impression dictated by: Donnie Ledesma M.D.06/24/2023 12:36 PM Dictation Location: [place] [address] Transcribed By: [facility] 06/24/23 1236 Dictated By: Donnie Ledesma DO 06/24/23 1232 Signed By: 06/24/23 1236 Normal [facility] [place] 06-19-2023 Screens [id number] IFF Normal [facility] Ambulatory Visit Summaryon 1 Ambulatory Visit Summary MONTSE MARTINEZ Marya :1950 Visit Date:06/18/2023 Ambulatory Visit Instructions Your Diagnosis Ureteral stone with hydronephrosis BPH with urinary obstruction Incomplete bladder emptying Kidney stones Tests Performed Urnls Dip Stick Auto w/o Microscopy POC 03996 XR IVP -- Results Pending -- Please visit your patient portal for your results or contact your primary care physician. Your Care Team Attending Physician - Isreal DAHL MD Primary Care Physician - SOLE DALEY DO This Is Your Medications List Contact prescribing physician if questions or concerns ascorbic acid (Vitamin C) aspirin levothyroxine losartan (losartan 25 mg Tab) multivitamin with minerals (Centrum Men's) polycarbophil (Fiber Lax) rosuvastatin (rosuvastatin 20 mg Tab) saw palmetto tamsulosin (Flomax 0.4 mg Cap) Procedures Performed Transurethral insertion of prostatic urethral lift implant (03/24/2023), Cystoscopy (03/04/2023), Colonoscopy, flexible; with removal of tumor(s), polyp(s), or other lesion(s) by snare technique (05/31/2021), Excision of cervical lymph node, left shoulder arthroscopy, Repair of umbilical hernia. Discharge Vitals Heart Rate (Peripheral) 57 Blood Pressure 147/83 Height 175 cm Height 69 in Weight 86.7 kg Weight 190.74 lb BMI 28.31 What to do next Scheduled Follow-Up Appointments Friday 9:30 AM EST With: Carlos Enrique LEWIS MD Where: [facility] Ambulatory Visit Summary MONTSE MARTINEZ :1950 Visit Date:06/18/2023 Ambulatory Visit Instructions Your Diagnosis Ureteral stone with hydronephrosis BPH with urinary obstruction Incomplete bladder emptying Kidney stones Tests Performed Urnls Dip Stick Auto w/o Microscopy POC 97940 XR IVP -- Results Pending -- Please visit your patient portal for your results or contact your primary care physician. Your Care Team Attending Physician - Isreal DAHL MD Primary Care Physician - SOLE DALEY DO This Is Your Medications List Contact prescribing physician if questions or concerns ascorbic acid (Vitamin C) aspirin levothyroxine losartan (losartan 25 mg Tab) multivitamin with minerals (Centrum Men's) polycarbophil (Fiber Lax) rosuvastatin (rosuvastatin 20 mg Tab) saw palmetto tamsulosin (Flomax 0.4 mg Cap) Procedures Performed Transurethral insertion of prostatic urethral lift implant (03/24/2023), Cystoscopy (03/04/2023), Colonoscopy, flexible; with removal of tumor(s), polyp(s), or other lesion(s) by snare technique (05/31/2021), Excision of cervical lymph node, left shoulder arthroscopy, Repair of umbilical hernia. Discharge Vitals Heart Rate (Peripheral) 57 Blood Pressure 147/83 Height 175 cm Height 69 in Weight 86.7 kg Weight 190.74 lb BMI 28.31 What to do next Scheduled Follow-Up Appointments Friday 9:30 AM EST With: Carlos Enrique LEWIS MD Where: [facility] Patient Educationon 06-18-20 Patient Education Nephrology Laser Therapy for Kidney Stones Laser therapy for kidney stones is a procedure to break up small, hard mineral deposits that form in the kidney (kidney stones). The procedure is done using a device that produces a focused beam of light (laser). The laser breaks up kidney stones into pieces that are small enough to be passed out of the body through urination or removed from the body during the procedure. You may need laser therapy if you have kidney stones that are painful or block your urinary tract. This procedure is done by inserting a tube (ureteroscope) into your kidney through the urethral opening. The urethra is the part of the body that drains urine from the bladder. In women, the urethra opens above the vaginal opening. In men, the urethra opens at the tip of the penis. The ureteroscope is inserted through the urethra, and surgical instruments are moved through the bladder and the muscular tube that connects the kidney to the bladder (ureter) until they reach the kidney. Tell a health care provider about: ? Any allergies you have. ? All medicines you are taking, including vitamins, herbs, eye drops, creams, and bpkc-dgo-doqdpbl medicines. ? Any problems you or family members have had with anesthetic medicines. ? Any blood disorders you have. ? Any surgeries you have had. ? Any medical conditions you have. ? Whether you are or may be . What are the risks? Generally, this is a safe procedure. However, problems may occur, including: ? Infection. ? Bleeding. ? Allergic reactions to medicines. ? Damage to the urethra, bladder, or ureter. ? Urinary tract infection (UTI). ? Narrowing of the urethra (urethral stricture). ? Difficulty passing urine. ? Blockage of the kidney caused by a fragment of kidney stone. What happens before the procedure? Medicines ? Ask your health care provider about: ? Changing or stopping your regular medicines. This is especially important if you are taking diabetes medicines or blood thinners. ? Taking medicines such as aspirin and ibuprofen. These medicines can thin your blood. Do not take these medicines unless your health care provider tells you to take them. ? Taking duwv-thx-brjildl medicines, vitamins, herbs, and supplements. Eating and drinking Follow instructions from your health care provider about eating and drinking, which may include: ? 8 hours before the procedure ? stop eating heavy meals or foods, such as meat, fried foods, or fatty foods. ? 6 hours before the procedure ? stop eating light meals or foods, such as toast or cereal. ? 6 hours before the procedure ? stop drinking milk or drinks that contain milk. ? 2 hours before the procedure ? stop drinking clear liquids. Staying hydrated Follow instructions from your health care provider about hydration, which may include: ? Up to 2 hours before the procedure ? you may continue to drink clear liquids, such as water, clear fruit juice, black coffee, and plain tea. General instructions ? You may have a physical exam before the procedure. You may also have tests, such as imaging tests and blood or urine tests. ? If your ureter is too narrow, your health care provider may place a soft, flexible tube (stent) inside of it. The stent may be placed days or weeks before your laser therapy procedure. ? Plan to have someone take you home from the hospital or clinic. ? If you will be going home right after the procedure, plan to have someone stay with you for 24 hours. ? Do not use any products that contain nicotine or tobacco for at least 4 weeks before the procedure. These products include cigarettes, e-cigarettes, and chewing tobacco. If you need help quitting, ask your health care provider. ? Ask your health care provider: ? How your surgical site will be marked or identified. ? What steps will be taken to help prevent infection. These may include: ? Removing hair at the surgery site. ? Washing skin with a germ-killing soap. ? Taking antibiotic medicine. What happens during the procedure? ? An IV will be inserted into one of your veins. ? You will be given one or more of the following: ? A medicine to help you relax (sedative). ? A medicine to numb the area (local anesthetic). ? A medicine to make you fall asleep (general anesthetic). ? A ureteroscope will be inserted into your urethra. The ureteroscope will send images to a video screen in the operating room to guide your surgeon to the area of your kidney that will be treated. ? A small, flexible tube will be threaded through the ureteroscope and into your bladder and ureter, up to your kidney. ? The laser device will be inserted into your kidney through the tube. Your surgeon will pulse the laser on and off to break up kidney stones. ? A surgical instrument that has a tiny wire basket may be inserted through the tube into your kidney to remove the pieces (more content not included)... Normal [facility] RAD - MISCon 06-18-2023 [facility] [id number] IFF Normal [facility] Urology Office/Clinic Noteon 06-18-2023 Urology Office/Clinic Note Chief Complaint [place] [facility] [place] HPI Staff Pt is here today for follow up [place] [facility] [place]. Pt presented to [facility] due to RLQ abdominal pain, nausea, and dry heaves. CT scan done 06/14/23 shows mild right-sided hydroureteronephrosis secondary to a 7 mm calculus within the distal Rt ureter. Nonobstructing bilateral renal stones. KUB done 06/17/23 shows possible ureteral stones. Previous DX: BPH with urinary obstruction, gross hematuria, incomplete bladder emptying. S/P Urolift done 03/24/23. Cysto done 03/04/23. IPSS SCORE 14. Pt states he has not had any pain since ER visit. Pt states Flomax medication has worsened his urinary symptoms. PVR today 84ml. Dysuria: denies pain and burning Incomplete bladder emptying: sometimes Hematuria: denies visible blood Frequency: every hour Urgency: yes Nocturia: 2-3x a night Stream: denies hesitancy, medium stream Leaking: a little bit Post void dripping: sometimes Wearing pads/ Depends: denies Urge incontinence: denies Stress incontinence: denies Incontinence without Sensory Awareness: denies Abdominal pain: denies Flank pain: denies History of Present Illness Tests reviewed: reviewed UA, ER records, CT, KUB I have reviewed the previous health record information and history for this patient from Dr. Lewis and [facility]. I have reviewed and verified the staff HPI to be accurate for this encounter. There have been no associated fever, chills, flank pain, or blood in the urine. Denies any urinary infections since last encounter. Review of Systems PHQ Score Initial Depression Screen Score: 0 ROS - Provider Constitutional: denies weight loss, denies hot flashes. Eyes: denies eye problems. Gastrointestinal: denies nausea, denies vomiting. Cardiovascular: denies chest pain or angina. Integumentary: no dryness Musculoskeletal: denies musculoskeletal symptoms. ENMT: denies otolaryngeal symptoms. Respiratory: no shortness of breath. Heme/Lymph: denies easy bleeding tendency, denies easy bruising tendency. Psychiatric: no confusion, no anxiety. Genitourinary: See HPI. Physical Exam Vitals & Measurements HR: 57(Peripheral) BP: 147/83 HT: 69 in HT: 175 cm WT: 86.7 kg WT: 190.74 lb BMI: 28.31 General Appearance: alert, no distress, well nourished, well developed male. Genitourinary: normal scrotum, normal testes, normal urethra, normal epididymis, normal vas deferens/spermatic cord. Flank Pain: none. Bladder: nonpalpable. Assessment/Plan Dr. Lewis pt following up [place] [facility] [place] visit 06/14/23 due to RLQ abdominal pain, nausea, and dry heaves. 1. Ureteral stone with hydronephrosis (N13.2: Hydronephrosis with renal and ureteral calculous obstruction) CT AP w con 06/14/23 - Mild right-sided hydroureteronephrosis secondary to a 7 mm calculus within the distal R ureter. Two additional tiny nonobstructing R renal calculi and a nonobstructing L renal stone 9 mm. L-sided hydro. KUB 06/17/23 - Kidneys are partially obscured. Subtle 3 mm stone RLP. Questionable 4 mm stone mid to upper pole. 12 mm stone L. More elongate calcification on the R measuring 7-8 mm. Pelvic calcifications may be phleboliths however ureteral stones are difficult to exclude. No pain since ER visit. Reviewed imaging with pt. Has been straining his urine except for when he voids outside on walks. Brought in sediment that is not urinary tract calcification. Suspicious that pt hasn't passed stone, he should have been aware of stone passage. Had RLQ pain episode 2-3 weeks prior to going to ER. If stone still present, discussed R URS, R laser litho. Will call pt with IVP results. Pt understands and agrees with plan. -Schedule IVP. -Will schedule R URS, R Laser Litho pending IVP above. The procedural risks, benefits, details, and treatment alternatives have been discussed with the patient. These include bleeding, infection, inability to break or retrieve all of the stone, injury to the ureter (the tube which connects the kidney to the bladder), injury to the kidney scarring of the ureter, and need for repeat procedures, among others. Full informed consent has been obtained. Will order General anesthesia. 2. 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 has not gained any benefit from the procedure. CT AP w con 06/14/23 - Mildly enlarged prostate. UA today negative for blood and infection. IPSS 14 (13). Not taking any BPH meds. Does not feel urolift improved his sx. 3. Incomplete bladder emptying (R33.9: Retention of urine, unspecified) PVR (cc): 04/07/23 - 110 06/10/23 - 141 06/18/23 - 84 4. Kidney stones (N20.0: Calculus of kidney) See #1. Follow-up With When Contact Information HESHAM ELIZALDE, Isreal Renee, [facility] [address], [place] [address]- Additional Instructions: f/u pending IVP Patient Education Laser Therapy for Kidney Stones I, Ibis Puente, personally scribed for Dr (more content not included)... Normal [facility] Comment on above: Result Comment: Elec tronically Signed By: Isreal DAHL MD\.br\Date and Time Signed: 06/18/23 12:00 EDT\.br\Electronically Co-Signed By: Ibis Puente\.br\Date and Time Co-Signed: 06/18/23 11:56 EDT XR KUBon 06-17-2023 XR KUB [facility] Main [address] [address] XRay Report Signed Patient: Montse Martinez MR#: [id number] 03 : 1950 Acct:[id number] Age/Sex: 73 / M ADM Date: 06/17/23 Loc: D Room: Type: [facility] Attending Dr: Isreal Dahl MD Copies to: Isreal Dahl MD Ordering Provider: Isreal Dahl MD Date of Service: 06/17/23 XR/XR KUB: KIDNEY STONES KUB: COMPARISON: None CLINICAL DATA: Follow-up kidney stones. Right lower abdominal pain. There is air and stool within the colon. There is no dilated small bowel. The kidneys are partially obscured. On the right, there might be a subtle 3 mm stone at the lower pole. There is also question of a 4 mm stone at the mid to upper pole however there is overlapping stool. On the left, there is a 12 mm calcified stone is present. There are calcifications within the pelvis that might be phleboliths. There is a more elongate calcification on the right measuring 7 - 8 mm in length. Given the history of right-sided symptoms, ureteral stone is difficult to exclude. Correlation with any existing outside studies would be helpful. There is suspected prior urolift procedure. There are no soft tissue masses. There are degenerative changes at the spine. XR/XR KUB IMPRESSION: BILATERAL NEPHROLITHIASIS. PELVIC CALCIFICATIONS THAT MIGHT BE PHLEBOLITHS HOWEVER URETERAL STONES ARE DIFFICULT TO EXCLUDE. COMPARISON TO ANY PRIOR EXISTING IMAGING IS THEREFORE RECOMMENDED. Impression dictated by: Marbella Peterson M.D.06/17/2023 11:44 AM Dictation Location: [place] [address] Transcribed By: [facility] 06/17/23 1144 Dictated By: Marbella Peterson MD 06/17/23 1106 Signed By: 06/17/23 1144 [facility] Physician Orderon 06-16-2023 Physician Order [id number] IFF Normal [facility] Auto Diffon 06-14-2023 Basophils/100 WBC (Bld) 0.4 % Normal 0.0-2.0 [facility] Comment on above: Order Comment: Order Added by Discern Expert. Performed By: #### 2 886190, 08564113, 6503765, 3435323, 1087856, 1256782 #### [facility] [address] [place] [address] Basophils/Leukocytes Auto (Bld) [Pure # fraction] 0.1 E9/L Normal 0.0-0.2 [facility] Comment on above: Order Comment: Order Added by Discern Expert. Performed By: #### 2 235876, 69100308, 4774650, 5124488, 4350905, 3501157 #### [facility] [address] [place] [address] Eosinophils/100 WBC (Bld) 0.7 % Normal 0.0-8.0 [facility] Comment on above: Order Comment: Order Added by Discern Expert. Performed By: #### 2 813556, 96690225, 8424979, 4534488, 3843646, 5730384 #### [facility] [address] [place] [address] Eosinophils/Leukocytes Auto (Bld) [Pure # fraction] 0.1 E9/L Normal 0.0-0.5 [facility] Comment on above: Order Comment: Order Added by Discern Expert. Performed By: #### 2 198163, 85789312, 5626055, 4072019, 7511850, 4717889 #### [facility] [address] [place] [address] Lymphocytes/100 WBC (Bld) 10.5 % Low 14.0-50.0 [facility] Comment on above: Order Comment: Order Added by Discern Expert. Performed By: #### 2 615630, 67799254, 4100579, 0024057, 4285743, 5406882 #### [facility] [address] [place] [address] Lymphocytes/Leukocytes Auto (Bld) [Pure # fraction] 1.4 E9/L Normal 1.0-4.0 [facility] Comment on above: Order Comment: Order Added by Discern Expert. Performed By: #### 2 783748, 66599433, 5224576, 8967843, 4866639, 8128406 #### [facility] [address] [place] [address] Monocytes/100 WBC (Bld) 5.5 % Normal 4.0-14.0 [facility] Comment on above: Order Comment: Order Added by Discern Expert. Performed By: #### 2 938239, 29307931, 0104520, 9937951, 1470982, 6630055 #### [facility] [address] [place] [address] Monocytes/Leukocytes Auto (Bld) [Pure # fraction] 0.7 E9/L Normal 0.2-1.0 [facility] Comment on above: Order Comment: Order Added by Discern Expert. Performed By: #### 2 611122, 19554589, 9500818, 7798412, 8557615, 3182063 #### [facility] [address] [place] [address] Neutrophils/100 WBC (Bld) 82.9 % High 36.0-75.0 [facility] Comment on above: Order Comment: Order Added by Discern Expert. Performed By: #### 2 912398, 77438718, 0664342, 8063703, 9440342, 0632336 #### [facility] [address] [place] [address] Neutrophils/Leukocytes Auto (Bld) [Pure # fraction] 10.8 E9/L High 2.0-7.5 [facility] Comment on above: Order Comment: Order Added by Discern Expert. Performed By: #### 2 714327, 73654777, 3340281, 1594195, 8351531, 8106902 #### [facility] [address] [place] [address] BMPon 06-14-2023 Creatinine [Mass/Vol] 1.0 mg/dL Normal 0.5-1.3 [facility] Comment on above: Performed By: #### 2 116946, 07814250, 8135433, 9653662, 5024865, 2577526 ####[facility] [address] [place] [address] Urea nitrogen [Mass/Vol] 18 mg/dL Normal 5-21 [facility] Comment on above: Performed By: #### 2 424783, 85544063, 7084757, 7083961, 6418154, 2598712 ####[facility] [address] [place] [address] Urea nitrogen/Creatinine [Mass ratio] 18 No Units Normal 10-20 [facility] Comment on above: Performed By: #### 2 039285, 42597957, 0605577, 2534196, 7509863, 0733296 ####[facility] [address] [place] [address] Anion gap [Moles/Vol] 6 mmol/L Normal 6-16 [facility] Comment on above: Performed By: #### 2 402459, 37797219, 8470328, 0855839, 5530294, 0566907 ####[facility] [address] [place] [address] Calcium [Mass/Vol] 8.7 mg/dL Low 8.9-11.1 [facility] Comment on above: Performed By: #### 2 476702, 92503373, 1337016, 3372969, 9955084, 8574343 ####[facility] [address] [place] [address] Chloride [Moles/Vol] 105 mmol/L Normal 101-111 [facility] Comment on above: Performed By: #### 2 504730, 95556528, 6906417, 5712049, 1714451, 6204686 ####[facility] [address] [place] [address] CO2 [Moles/Vol] 30 mmol/L Normal 21-31 [facility] Comment on above: Performed By: #### 2 555603, 74312534, 1699013, 1283585, 7309824, 7291803 ####[facility] [address] [place] [address] Glucose [Mass/Vol] 135 mg/dL Normal 55-199 [facility] Comment on above: Result Comment: If t his glucose result represents a fasting glucose, interpretation should refer to the following reference range: 55-99 mg/dL Performed By: #### 2 307596, 10375518, 4950778, 2962807, 4847546, 1976537 ####[facility] [address] [place] [address] Potassium [Moles/Vol] 4.3 mmol/L Normal 3.5-5.3 [facility] Comment on above: Performed By: #### 2 818285, 72746196, 1210229, 6003216, 5704300, 7777066 ####[facility] [address] [place] [address] Sodium [Moles/Vol] 137 mmol/L Normal 135-145 [facility] Comment on above: Performed By: #### 2 943334, 59389515, 9498147, 3632860, 2097226, 4157702 ####[facility] [address] [place] [address] CBC w/ Auto Diffon 3 Erythrocyte distribution width (RBC) [Ratio] 13.7 % Normal 10.9-14.2 [facility] Comment on above: Performed By: #### 2 810387, 97887418, 9309898, 5211839, 6090087, 3421834 #### [facility] [address] [place] [address] Hematocrit (Bld) [Volume fraction] 48.0 % Normal 37.7-49.0 [facility] Comment on above: Performed By: #### 2 977040, 49212567, 0464990, 0133507, 0752457, 4379740 #### [facility] [address] [place] [address] Hemoglobin (Bld) [Mass/Vol] 16.1 g/dL Normal 13.5-17.5 [facility] Comment on above: Performed By: #### 2 725070, 49359472, 2112130, 9339337, 8460984, 7433926 #### [facility] [address] [place] [address] MCH (RBC) [Entitic mass] 29.3 pg Normal 27.0-34.0 [facility] Comment on above: Performed By: #### 2 084596, 85142399, 0049395, 5135761, 2955673, 7967119 #### [facility] [address] [place] [address] MCHC (RBC) [Mass/Vol] 33.4 g/dL Normal 31.4-36.0 [facility] Comment on above: Performed By: #### 2 642838, 94576934, 5578150, 6596250, 0442117, 4542903 #### [facility] [address] [place] [address] MCV (RBC) [Entitic vol] 87.6 fL Normal 80.0-100.0 [facility] Comment on above: Performed By: #### 2 868282, 82552814, 8505156, 2345848, 3634920, 0806080 #### [facility] [address] [place] [address] Platelet mean volume (Bld) [Entitic vol] 9.6 fL Normal 6.4-10.8 [facility] Comment on above: Performed By: #### 2 027520, 13039099, 5785568, 2738345, 2964486, 3781762 #### [facility] [address] [place] [address] Platelets (Bld) [#/Vol] 195.0 E9/L Normal 150.0-500.0 [facility] Comment on above: Performed By: #### 2 086756, 33703405, 1767079, 2980991, 9436717, 6441003 #### [facility] [address] [place] [address] RBC (Bld) [#/Vol] 5.5 E12/L Normal 4.3-5.9 [facility] Comment on above: Performed By: #### 2 626506, 55049354, 4326634, 6335335, 0252938, 2466797 #### [facility] [address] [place] [address] WBC corrected for nucl RBC Auto (Bld) [#/Vol] 13.0 E9/L High 4.0-11.0 [facility] Comment on above: Performed By: #### 2 424686, 92077389, 4487420, 8316268, 5300961, 3302722 #### [facility] [address] [place] [address] Abdomen/Pelvis w/ Contras ton 06-14-2023 CT Abdomen/Pelvis w/ Contrast Exam Date/Time: 06/14/2023 04:56 EDT Reason for Exam: Abdominal pain, acute, nonlocalized;Other (please specify) Report IMPRESSION: MILD RIGHT-SIDED HYDROURETERONEPHROSIS SECONDARY TO A 7 MM CALCULUS WITHIN THE DISTAL RIGHT URETER. ADDITIONAL NONOBSTRUCTING BILATERAL RENAL CALCULI. COLONIC DIVERTICULOSIS WITHOUT DIVERTICULITIS. EXAM: CT Abdomen/Pelvis w/ Contrast History: Right lower quadrant pain Technique: Multiple contiguous axial images were obtained of the abdomen and pelvis from the level of the lung bases through the ischial tuberosities with contrast. Multiplanar reformats were obtained. Delayed images were obtained. Comparison: None available Findings: Lung bases are clear. The liver, gallbladder, spleen, stomach, pancreas, and adrenal glands are within normal limits. The kidneys enhance uniformly. Mild right-sided hydroureteronephrosis and perinephric stranding secondary to a 7 mm calculus within the distal right ureter. No delayed nephrogram. Contrast secretion appears symmetric. There are 2 additional tiny nonobstructing right renal calculi and a nonobstructing left renal calculus that measures approximately 9 mm. Left-sided hydronephrosis. The kidneys enhance uniformly. The prostate appears mildly enlarged. Urinary bladder is well distended. Abdominal aorta is nonaneurysmal. No retroperitoneal or abdominal/pelvic lymphadenopathy. No small bowel obstruction. Colonic diverticuli are identified. No overt colonic mass or pericolonic inflammation. Appendix is within normal limits. No free fluid or free air. No acute osseous abnormality. All CT scans at this facility use dose modulation, iterative reconstruction, and/or Report weight based dosing when appropriate to reduce radiation dose to as low as reasonably achievable. Ordering Provider: Justin Echeverria FINAL REPORT Dictated: 06/14/2023 8:41 am Justin Lau DO Signed (Electronic Signature): 06/14/2023 8:41 am Signed by: Justin Lau DO Transcribed by: LUIS Technologist: SERGIO Technical Comments GFR (mL/min/1/73m2) 80 Contrast: Isovue 300 Contrast amount in ml's: 100 Normal [facility] Consent for Treatmenton Consent for Treatment [id number] IFF Normal [facility] Discharge Instructionson Discharge Instructions [id number] IFF Normal [facility] ED Clinical Summaryon 2022 ED Clinical Summary (Inserted Image. Lynnette ble to display) [address] [address] ED Clinical Summary Person Information Name: MONTSE MARTINEZ [place] Age: 73 Years : 1950 Sex: Male Language: Mauritian PCP: SOLE DALEY DO Marital Status: Visit Id: Visit Reason: Nausea; Abdominal pain; ABDOMINAL PAIN Speciality: Acuity: 3 Enc Type: Emergency Med Service: Emergency Arrival: 06/14/2023 03:32:18 Discharge: 06/14/2023 09:56:55 LOS: 000 06:24 Checkin: 06/14/2023 03:32:18 Checkout: 06/14/2023 09:56:55 Dispo Type: Home (Routine DC) EVENTS: Event Name Event Status Request Date/Time Start Date/Time Complete Date/Time Arrive Complete 06/14/2023 03:32:18 06/14/2023 03:32:18 06/14/2023 03:32:18 Document Home Meds Request 06/14/2023 03:32:18 Triage Complete 06/14/2023 03:32:18 06/14/2023 03:43:19 06/14/2023 03:43:19 Dr Exam Complete 06/14/2023 03:37:40 06/14/2023 03:37:40 06/14/2023 03:37:40 Registration Complete 06/14/2023 03:37:40 06/14/2023 03:44:38 06/14/2023 03:45:11 Bed Assign Complete 06/14/2023 03:44:38 06/14/2023 03:44:38 06/14/2023 03:44:38 RN Exam Complete 06/14/2023 03:44:38 06/14/2023 03:57:39 06/14/2023 03:57:39 Reg Complete Request 06/14/2023 03:45:11 Pending Labs Complete 06/14/2023 03:53:20 06/14/2023 04:39:08 Lab Complete 06/14/2023 03:53:20 06/14/2023 04:39:08 Urine Collect Complete 06/14/2023 03:53:20 06/14/2023 04:24:43 Meds Admin Complete 06/14/2023 03:53:20 06/14/2023 04:01:51 Patient Care Complete 06/14/2023 03:53:20 06/14/2023 04:06:21 CT Complete 06/14/2023 03:53:20 06/14/2023 04:40:13 06/14/2023 04:56:21 Pending Labs Complete 06/14/2023 04:09:31 06/14/2023 04:09:31 06/14/2023 04:39:08 Lab Complete 06/14/2023 04:09:31 06/14/2023 04:09:31 06/14/2023 04:39:08 Pending Labs Complete 06/14/2023 04:29:04 06/14/2023 04:29:04 06/14/2023 04:29:12 Lab Complete 06/14/2023 04:29:04 06/14/2023 04:29:04 06/14/2023 04:29:12 Dr Exam Complete 06/14/2023 07:02:57 06/14/2023 07:02:57 06/14/2023 07:02:57 Registration Request 06/14/2023 07:02:57 Discharge Complete 06/14/2023 09:48:11 06/14/2023 09:57:06 06/14/2023 09:57:06 Transfer Complete 06/14/2023 09:57:06 06/14/2023 09:57:06 06/14/2023 09:57:06 ADDRESS: [id number] [place] [id number] [facility] DOC NOTES: MEDICAL INFORMATION: Prescriptions Given: New Medications [facility] [id number], [address] [place] [id number], [phone] tamsulosin (Flomax 0.4 mg Cap) 1 Capsules By Mouth every day. Refills: 0. Medications to Continue with No Changes Other Medications ascorbic acid (Vitamin C) aspirin 325 Milligram By Mouth every day. levothyroxine 125 Microgram By Mouth every day. losartan (losartan 25 mg Tab) By Mouth every day. multivitamin with minerals (Centrum Men's) 1 Tablets By Mouth every day. polycarbophil (Fiber Lax) 2 grams By Mouth every day. rosuvastatin (rosuvastatin 20 mg Tab) By Mouth every day. saw palmetto 450 Milligram By Mouth every day. PATIENT EDUCATION INFORMATION: Instructions: Kidney Stones Follow up: With: Address: When: Isreal DAHL [facility], [address] , [place], [place] [id number] Business (1) In 3 days 06/17/2023 Comments: Return to the emergency room if your pain gets worse, vomiting, fever or any new symptoms. With: Address: When: SOLE DALEY [address] [address] Business (1) In 3 days DIAGNOSIS: 1:Right ureteral stone; Right lower quadrant abdominal pain Normal [facility] ED Note-Physicianon 06-14-20 ED Note-Physician Basic Information Time Seen: Justin Echeverria DO 06/14/2023 03:37 Chief Complaint pt to ED with c/o RLQ abd pain and states unable to get comfortable tonight while lying down. nausea earlier and chillls. denies v/d or constipation concern. denies bowel or bladder changes. History of Present Illness HPI: Patient is a 73-year-old male past ministry of atrial fibrillation, BPH, hyperlipidemia, hypothyroidism who presents the ED for abdominal pain. Patient states this for started earlier this evening and is progressively been worsening. The pain is in his right lower quadrant and does not radiate. He states that he has had some nausea and dry heaves but has not vomited. He denies any change in bowel movements. He denies any urinary symptoms. He denies any fevers but has had some chills. ROS: Pertinent review of systems conducted and is negative except as noted above. Physical exam: General: nontoxic appearing and in no distress HEENT: Mucous membranes moist Neuro: awake and alert Neck: supple, trachea midline Card: Heart regular rate and rhythm no murmur Resp: Lungs clear to auscultation no wheeze or rhonchi Abd: Soft and nondistended. Right lower quadrant tenderness that rebound or guarding. No CVA tenderness. Ext: No gross deformity or edema Physical Exam Vitals & Measurements T: 36.4 ?C(Tympanic) HR: 62(Peripheral) RR: 18 BP: 144/91 SpO2: 99% HT: 175 cm WT: 86.3 kg BMI: 28.18 Medical Decision Making MEDICAL DECISION MAKING Number and Complexity of Problems Differential Diagnosis: [] [facility] Data External documents reviewed: N/A My EKG interpretation: Noted in chart if applicable My CT interpretation: N/A My X-ray interpretation: Noted in chart if applicable My Ultrasound interpretation: N/A Decision rules/scores evaluated: N/A Discussed with: N/A Treatment and Disposition ED Course: On exam patient has right lower quadrant tenderness but is nonperitoneal. We will obtain CT of the abdomen pelvis with contrast to rule out appendicitis or other acute process. Patient was given a dose of Toradol and Zofran for symptoms. Blood work shows a mild nonspecific leukocytosis. Urine shows blood but no signs of active infection. Patient was signed out to the oncoming physician pending CT results of the abdomen and pelvis. Shared decision making: As above Code status: N/A Assessment/Plan Right lower quadrant abdominal pain (R10.31: Right lower quadrant pain) Orders: ketorolac, 15 mg = 1 mL, Injection, IV Push, Once, Stop date 06/14/23 3:52:00 EDT, STAT, Start date 06/14/23 3:52:00 EDT, 06/14/23 3:52:00 EDT ondansetron, 4 mg = 2 mL, Injection, IV Push, Once, Stop date 06/14/23 3:52:00 EDT, STAT, Start date 06/14/23 3:52:00 EDT, 06/14/23 3:52:00 EDT Automated Diff Basic Metabolic Panel CBC w/ Auto Diff CT Abdomen/Pelvis w/ Contrast eGFR Hepatic Function Panel Lipase Level Saline Lock Insert UA With Cult Reflex Medications Administered Given ketorolac 15 mg/mL Inj, 15 mg, IV Push ondansetron 4 mg/2 mL Inj, 4 mg, IV Push Disposition Plan Discharge Prescription List Prescriptions No active prescription medications Follow-up No qualifying data available Problem List/Past Medical History Ongoing Arthritis Atrial fibrillation BPH with urinary obstruction Colon polyps Diverticulosis Gross hematuria Hemorrhoids History of colon polyps Hyperlipidemia Hyperthyroidism Incomplete bladder emptying Historical AF - Atrial fibrillation Aspirin prophylaxis H/O: arthritis high cholesterol Hypercholesterolemia Rotator cuff tear shoulder problems Procedure/Surgical History Transurethral insertion of prostatic urethral lift implant (03/24/2023), Cystoscopy (03/04/2023), Colonoscopy, flexible; with removal of tumor(s), polyp(s), or other lesion(s) by snare technique (05/31/2021), Excision of cervical lymph node, left shoulder arthroscopy, Repair of umbilical hernia. Medications Inpatient ketorolac 15 mg/mL Inj, 15 mg= 1 mL, IV Push, Once ondansetron 4 mg/2 mL Inj, 4 mg= 2 mL, IV Push, Once Home aspirin, 325 mg, Oral, Daily Centrum Men's, 1 tab(s), Oral, Daily Fiber Lax, 2 grams, Oral, Daily levothyroxine, 125 mcg, Oral, Daily losartan 25 mg Tab, Oral, Daily rosuvastatin 20 mg Tab, Oral, Daily saw palmetto, 450 mg, Oral, Daily Vitamin C, See Instructions Allergies No Known Allergies Social History Alcohol - Denies Alcohol Use, 02/13/2010 Substance Abuse - Denies Substance Abuse, 02/13/2010 Tobacco - Denies Tobacco Use, 02/13/2010 quit 33 years ago Tobacco Use:. Never Smokeless Tobacco Use:. Cigarettes, 06/10/2023 Family History Arthritis: Father. Diabetes mellitus: Father. Heart disease: Mother. Heart trouble: Mother. Pancreatic: Father. Pancreatic cancer: Father. Lab Results WBC: 13 E9/L High (06/14/23 04:05:00) RBC: 5.5 E12/L (06/14/23 04:05:00) HGB: 16.1 gm/dL (06/14/23 04:05:00) Hct: 48 % (06/14/23 04:05:00) (more content not included)... Normal [facility] Comment on above: Result Comment: Elec tronically Signed By: Kyle Moran, Gretchen H\.br\Date and Time Signed: 06/14/23 09:59 EDT ED Patient Education Noteon 06-14-2023 ED Patient Education Note Urology Kidney Stones Kidney stones are solid, rock-like deposits that form inside of the kidneys. The kidneys are a pair of organs that make urine. A kidney stone may form in a kidney and move into other parts of the urinary tract, including the tubes that connect the kidneys to the bladder (ureters), the bladder, and the tube that carries urine out of the body (urethra). As the stone moves through these areas, it can cause intense pain and block the flow of urine. Kidney stones are created when high levels of certain minerals are found in the urine. The stones are usually passed out of the body through urination, but in some cases, medical treatment may be needed to remove them. What are the causes? Kidney stones may be caused by: ? A condition in which certain glands produce too much parathyroid hormone (primary hyperparathyroidism), which causes too much calcium buildup in the blood. ? A buildup of uric acid crystals in the bladder (hyperuricosuria). Uric acid is a chemical that the body produces when you eat certain foods. It usually exits the body in the urine. ? Narrowing (stricture) of one or both of the ureters. ? A kidney blockage that is present at (congenital obstruction). ? Past surgery on the kidney or the ureters, such as gastric bypass surgery. What increases the risk? The following factors may make you more likely to develop this condition: ? Having had a kidney stone in the past. ? Having a family history of kidney stones. ? Not drinking enough water. ? Eating a diet that is high in protein, salt (sodium), or sugar. ? Being overweight or obese. What are the signs or symptoms? Symptoms of a kidney stone may include: ? Pain in the side of the abdomen, right below the ribs (flank pain). Pain usually spreads (radiates) to the groin. ? Needing to urinate frequently or urgently. ? Painful urination. ? Blood in the urine (hematuria). ? Nausea. ? Vomiting. ? Fever and chills. How is this diagnosed? This condition may be diagnosed based on: ? Your symptoms and medical history. ? A physical exam. ? Blood tests. ? Urine tests. These may be done before and after the stone passes out of your body through urination. ? Imaging tests, such as a CT scan, abdominal X-ray, or ultrasound. ? A procedure to examine the inside of the bladder (cystoscopy). How is this treated? Treatment for kidney stones depends on the size, location, and makeup of the stones. Kidney stones will often pass out of the body through urination. You may need to: ? Increase your fluid intake to help pass the stone. In some cases, you may be given fluids through an IV and may need to be monitored at the hospital. ? Take medicine for pain. ? Make changes in your diet to help prevent kidney stones from coming back. Sometimes, medical procedures are needed to remove a kidney stone. This may involve: ? A procedure to break up kidney stones using: ? A focused beam of light (laser therapy). ? Shock waves (extracorporeal shock wave lithotripsy). ? Surgery to remove kidney stones. This may be needed if you have severe pain or have stones that block your urinary tract. Follow these instructions at home: Medicines ? Take ejeo-qii-dkbbkzs and prescription medicines only as told by your health care provider. ? Ask your health care provider if the medicine prescribed to you requires you to avoid driving or using heavy machinery. Eating and drinking ? Drink enough fluid to keep your urine pale yellow. You may be instructed to drink at least 8?10 glasses of water each day. This will help you pass the kidney stone. ? If directed, change your diet. This may include: ? Limiting how much sodium you eat. ? Eating more fruits and vegetables. ? Limiting how much animal protein?such as red meat, poultry, fish, and eggs?you eat. ? Follow instructions from your health care provider about eating or drinking restrictions. General instructions ? Collect urine samples as told by your health care provider. You may need to collect a urine sample: ? 24 hours after you pass the stone. ? 8?12 weeks after passing the kidney stone, and every 6?12 months after that. ? Strain your urine every time you urinate, for as long as directed. Use the strainer that your health care provider recommends. ? Do not throw out the kidney stone after passing it. Keep the stone so it can be tested by your health care provider. Testing the makeup of your kidney stone may help prevent you from getting kidney stones in the future. ? Keep all follow-up visits as told by your health care provider. This is important. You may need follow-up X-rays or ultrasounds to make sure that your stone has passed. How is this prevented? To prevent another kidney stone: ? Drink enough fluid to keep your urine pale yellow. This is the best way to prevent kidney stones. ? Eat a healthy diet and follow (more content not included)... Normal [facility] ED Patient Summaryon 023 ED Patient Summary (Inserted Image. Lynnette ble to display) [address] [address] Patient Discharge Instructions Person Information Name: MONTSE MARTINEZ Age: 73 Years Arrival Date: 06/14/2023 03:32:18 Discharge Diagnosis: 1:Right ureteral stone; Right lower quadrant abdominal pain Primary Care Physician: SOLE DALEY DO Provider Information Primary Provider: Justin Echeverria DO Advanced Test Driller:None The exam and treatment you received in the Emergency Department were for an urgent problem and are not intended as complete care. It is important that you follow up with a doctor, nurse practitioner, or physician?s assistant project engineer for ongoing care. If your symptoms become worse or you do not improve as expected and you are unable to reach your usual health care provider, you should return to the Emergency Department. We are available 24 hours a day. MONTSE MARTINEZ has been given the following list of patient education materials, prescriptions and follow-up instructions: Follow-up Instructions: With: Address: When: Isreal DAHL [facility], [address] [place] [address] [facility] (1) In 3 days 06/17/2023 Comments: Return to the emergency room if your pain gets worse, vomiting, fever or any new symptoms. With: Address: When: SOLE MELÉNDEZ [address] [address] [facility] (1) In 3 days In the event that this physician does not participate in your insurance network, please consult with your insurance company to find a nearby participating provider. Patient Education Materials: Kidney Stones A MESSAGE TO ALL PATIENTS REGARDING OPIOIDS PRESCRIPTION OPIOIDS: WHAT YOU NEED TO KNOW Prescription opioids can be used to help relieve mnbdicwt-yn-bmwsgc pain and are often prescribed following a surgery or injury, or for certain health conditions. These medications can be an important part of the treatment but also come with serious risks. It is important to work with your healthcare provider to make sure you are getting the safest, most effective care. WHAT ARE THE RISKS AND SIDE EFFECTS OF OPIOID USE? Prescription opioids carry serious risks of addiction and overdose, especially with prolonged use. An opioid overdose, often marked by slowed breathing, can cause sudden . The use of prescription opioids can have a number of side effects as well, even when taken as directed: ? Tolerance?meaning you might need to take more of the medication for the same pain relief ? Physical dependence?meaning you have symptoms of withdrawal when a medication is stopped ? Increased sensitivity to pain ? Constipation ? Nausea, vomiting, and dry mouth ? Sleepiness and dizziness ? Confusion ? Depression ? Low levels of testosterone that can result in lower sex drive, energy, and strength ? Itching and sweating RISKS ARE GREATER WITH: ? History of drug misuse, substance use disorder, or overdose ? Mental health conditions (such as depression or anxiety) ? Sleep apnea ? Older age (65 years and older) ? Avoid alcohol while taking prescription opioids. Also, unless specifically advised by your health care provider, medications to avoid include: ? Benzodiazepines (such as Xanax or Valium) ? Muscle relaxants (such as Soma or Flexeril) ? Hypnotics (such as Ambien or Lunesta) ? Other prescription opioids KNOW YOUR OPTIONS Talk to your health care provider about ways to manage your pain that don?t involve prescription opioids. Some of these options may actually work better and have fewer risks and side effects. Options may include: ? Pain relievers such as acetaminophen, ibuprofen, and naproxen ? Some medication that are also used for depression or seizures ? Physical therapy and exercise ? Cognitive behavioral therapy, a psychological, goal-directed approach, in which patients learn how to modify physical, behavioral, and emotional triggers of pain and stress. IF YOU ARE PRESCRIBED OPIOIDS FOR PAIN: ? Never take opioids in greater amounts or more often than prescribed. ? Follow up with your primary health care provider. o Work together to create a plan on how to manage your pain. o Talk about ways to help manage your pain that don?t involve prescription opioids. o Talk about any and all concerns and side effects. ? Help prevent misuse and abuse o Never sell or share prescription opioids. o Never use another person?s prescription opioids. ? Store prescription opioids in a secure place and out of reach of others (this may include visitors, children, friends, and family). ? Safely dispose of unused prescription opioids: Find your community drug take-back program or your pharmacy mail-back program, or flush them down the toilet, following guidance from the Food and Drug Administration (www.fda.gov/Drugs/Reso urcesUsmanYou). ? Visit www.cdc.g (more content not included)... Normal [facility] Hep Func Panelon 06-14-2023 Bilirubin.indirect [Mass or moles/Vol] UTC Abnormal 0.1-0.9 [facility] Comment on above: Result Comment: Resu lt verified by Discern Rule. Performed result UT (Unable to Calculate) was sent as an Alpha code due the inability to calculate a valid numeric value. Performed By: #### 2 [id number], [id number], 9239345, 3247432, 3298231, 2052169 ####[facility] [address] [place] [address] Albumin [Mass/Vol] 4.6 g/dL Normal 3.3-5.0 [facility] Comment on above: Performed By: #### 2 900277, [id number], 9386240, 5000590, 7155182, 5238094 ####[facility] [address] [place] [address] Albumin/Globulin (S) [Mass conc ratio] 1.3 Normal 1.1-2.2 [facility] Comment on above: Performed By: #### 2 718910, 05128603, 5643223, 3979955, 4250022, 6773256 ####[facility] [address] [place] [address] ALP [Catalytic activity/Vol] 76 Int._Unit/L Normal 21-98 [facility] Comment on above: Performed By: #### 2 835479, 19691867, 6621534, 2054132, 8756249, 4230786 ####[facility] [address] [place] [address] ALT No additional P-5'-P [Catalytic activity/Vol] 23 Int._Unit/L Normal 6-46 [facility] Comment on above: Performed By: #### 2 146712, 41131718, 7806084, 5570722, 6880574, 7100960 ####[facility] [address] [place] [address] AST [Catalytic activity/Vol] 24 Int._Unit/L Normal 5-43 [facility] Comment on above: Performed By: #### 2 988969, 16289067, 8267419, 6348132, 8703131, 9942066 ####[facility] [address] [place] [address] Bilirubin [Mass/Vol] 1.0 mg/dL Normal 0.0-1.1 [facility] Comment on above: Performed By: #### 2 310145, 00138806, 9242979, 6592903, 7818355, 5676291 ####[address] [place] [address] Globulin (S) [Mass/Vol] 3.5 g/dL Normal 1.4-4.0 [facility] Comment on above: Performed By: #### 2 643238, 98891180, 3350393, 2581472, 9471179, 0316396 ####[address] [place] [address] Protein [Mass/Vol] 8.1 g/dL High 6.0-7.8 [facility] Comment on above: Performed By: #### 2 979912, 05958308, 0109880, 0517704, 8997580, 7088073 ####[facility] [address] [place] [address] Bilirubin.direct [Mass/Vol] mg/dL Normal 0.1-0.4 [facility] Comment on above: Performed By: #### 2 735065, 05865826, 5525325, 2931446, 0771337, 4543548 ####[facility] [address] [place] [address] Lipase Levelon 06-14-2023 Lipase [Catalytic activity/Vol] 37 U/L Normal 13-58 [facility] Comment on above: Performed By: #### 2 500462, 28685858, 8032085, 6715072, 9134693, 4678981 #### [facility] [address] [place] [address] UA With Cult Reflexon 2022 Bilirubin Ql (U) Negative Normal Negative [facility] Comment on above: Performed By: #### 1 0982380 ####[facility] [address] [place] [address] Clarity (U) CLEAR Normal Clear [facility] Comment on above: Performed By: #### 1 0482898 ####[address] [place] [address] Color (U) YELLOW Normal Yellow [facility] Comment on above: Performed By: #### 1 9780814 ####[facility] [address] [place] [address] Epithelial cells.squamous LM.HPF (Urine sed) [#/Area] 0-2 Normal 0-2 [facility] Comment on above: Performed By: #### 1 7975360 ####[facility] [address] [place] [address] Glucose Test strip (U) [Mass/Vol] Negative Normal Negative [facility] Comment on above: Performed By: #### 1 5103819 ####[facility] [address] [place] [address] Hemoglobin Ql (U) 2+ Abnormal Negative [facility] Comment on above: Performed By: #### 1 2734396 ####[address] [place] [address] Ketones (U) [Mass/Vol] Negative Normal Negative [facility] Comment on above: Performed By: #### 1 4883564 ####[address] [address] Tibes.plasma/Tibes .RBC (Bld) [Mass ratio] 4-20 Normal 0-3 [facility] Comment on above: Performed By: #### 1 1391718 ####[facility] [address] [place] [address] Nitrite Ql (U) Negative Normal Negative [facility] Comment on above: Performed By: #### 1 0531694 ####[address] [address] pH (U) 6.0 [pH] Invalid Interpretation Code 5.0-9.0 [facility] Comment on above: Performed By: #### 1 [id number] ####[address] [address] Protein (U) [Mass/Vol] Negative Normal Negative [facility] Comment on above: Performed By: #### 1 0618240 ####[address] [address] Specific gravity (U) [Rel density] 1.020 Invalid Interpretation Code 1.005-1.030 [facility] Comment on above: Performed By: #### 1 8685344 ####[address] [address] Type of Urine collection method Clean Catch Normal [facility] Comment on above: Performed By: #### 1 9185986 ####[address] [address] Urobilinogen Qn (U) 0.2 {Anthony'U}/dL Normal 0.0-1.0 [facility] Comment on above: Performed By: #### 1 9825461 ####[facility] [address] [place] [address] WBC Auto Ql (U) Negative Normal Negative [facility] Comment on above: Performed By: #### 1 3559683 ####[address] [address] WBC LM.HPF (Urine sed) [#/Area] 0-5 Normal 0-5 [facility] Comment on above: Performed By: #### 1 6247160 ####[facility] [address] [place] [address] eGFRon 06-14-2023 GFR/1.73 sq M.predicted among non-blacks MDRD (S/P/Bld) [Vol rate/Area] 80 mL/min/1.73 m2 Normal >=59 [facility] Comment on above: Order Comment: Order added by Discern Expert. Result Comment: Residential [employer] bharathi kidney disease could be indicated at eGFR's of less than 60 mL/min/1.73m2. Kidney failure is indicated at less than 15 mL/min/1.73m2. Performed By: #### 2 619670, 15435884, 1096383, 0354341, 6408964, 3098827 ####[facility] [address] [place] [address] Screenson 06-11-2023 Screens [id number] CD:127 Normal [facility] Ambulatory Visit Summaryon 1 Ambulatory Visit Summary MONTSE MARTINEZ Marya :1950 Visit Date:06/10/2023 Ambulatory Visit Instructions Your Diagnosis BPH with urinary obstruction Gross hematuria Incomplete bladder emptying Tests Performed Urnls Dip Stick Auto w/o Microscopy POC 03656 Your Care Team Attending Physician - Carlos Enrique LEWIS MD Primary Care Physician - SOLE DALEY DO This Is Your Medications List Contact prescribing physician if questions or concerns ascorbic acid (Vitamin C) aspirin levothyroxine losartan (losartan 25 mg Tab) multivitamin with minerals (Centrum Men's) polycarbophil (Fiber Lax) rosuvastatin (rosuvastatin 20 mg Tab) saw palmchaz Procedures Performed Transurethral insertion of prostatic urethral lift implant (03/24/2023), Cystoscopy (03/04/2023), Colonoscopy, flexible; with removal of tumor(s), polyp(s), or other lesion(s) by snare technique (05/31/2021), Excision of cervical lymph node, left shoulder arthroscopy, Repair of umbilical hernia. Discharge Vitals Temperature (Temporal Artery) 36.6 ?C Heart Rate (Peripheral) 78 Blood Pressure 124/82 Height 175 cm Height 69 in Weight 86.7 kg Weight 190.74 lb BMI 28.31 What to do next Scheduled Follow-Up Appointments Friday 9:30 AM EST With: BRANDEN ELIZALDE, Carlos Enrique Falk Where: [facility] Micky Adkins [facility] Patient Educationon 06-10-20 Patient Education Urology Benign Prostatic Hyperplasia Benign prostatic hyperplasia (BPH) is an enlarged prostate gland that is caused by the normal aging process. The prostate may get bigger as a man gets older. The condition is not caused by cancer. The prostate is a walnut-sized gland that is involved in the production of semen. It is located in front of the rectum and below the bladder. The bladder stores urine. The urethra carries stored urine out of the body. An enlarged prostate can press on the urethra. This can make it harder to pass urine. The buildup of urine in the bladder can cause infection. Back pressure and infection may progress to bladder damage and kidney (renal) failure. What are the causes? This condition is part of the normal aging process. However, not all men develop problems from this condition. If the prostate enlarges away from the urethra, urine flow will not be blocked. If it enlarges toward the urethra and compresses it, there will be problems passing urine. What increases the risk? This condition is more likely to develop in men older than 50 years. What are the signs or symptoms? Symptoms of this condition include: ? Getting up often during the night to urinate. ? Needing to urinate frequently during the day. ? Difficulty starting urine flow. ? Decrease in size and strength of your urine stream. ? Leaking (dribbling) after urinating. ? Inability to pass urine. This needs immediate treatment. ? Inability to completely empty your bladder. ? Pain when you pass urine. This is more common if there is also an infection. ? Urinary tract infection (UTI). How is this diagnosed? This condition is diagnosed based on your medical history, a physical exam, and your symptoms. Tests will also be done, such as: ? A post-void bladder scan. This measures any amount of urine that may remain in your bladder after you finish urinating. ? A digital rectal exam. In a rectal exam, your health care provider checks your prostate by putting a lubricated, gloved finger into your rectum to feel the back of your prostate gland. This exam detects the size of your gland and any abnormal lumps or growths. ? An exam of your urine (urinalysis). ? A prostate specific antigen (PSA) screening. This is a blood test used to screen for prostate cancer. ? An ultrasound. This test uses sound waves to electronically produce a picture of your prostate gland. Your health care provider may refer you to a specialist in kidney and prostate diseases (urologist). How is this treated? Once symptoms begin, your health care provider will monitor your condition (active surveillance or watchful waiting). Treatment for this condition will depend on the severity of your condition. Treatment may include: ? Observation and yearly exams. This may be the only treatment needed if your condition and symptoms are mild. ? Medicines to relieve your symptoms, including: ? Medicines to shrink the prostate. ? Medicines to relax the muscle of the prostate. ? Surgery in severe cases. Surgery may include: ? Prostatectomy. In this procedure, the prostate tissue is removed completely through an open incision or with a laparoscope or robotics. ? Transurethral resection of the prostate (TURP). In this procedure, a tool is inserted through the opening at the tip of the penis (urethra). It is used to cut away tissue of the inner core of the prostate. The pieces are removed through the same opening of the penis. This removes the blockage. ? Transurethral incision (TUIP). In this procedure, small cuts are made in the prostate. This lessens the prostate's pressure on the urethra. ? Transurethral microwave thermotherapy (TUMT). This procedure uses microwaves to create heat. The heat destroys and removes a small amount of prostate tissue. ? Transurethral needle ablation (TUNA). This procedure uses radio frequencies to destroy and remove a small amount of prostate tissue. ? Interstitial laser coagulation (ILC). This procedure uses a laser to destroy and remove a small amount of prostate tissue. ? Transurethral electrovaporization (TUVP). This procedure uses electrodes to destroy and remove a small amount of prostate tissue. ? Prostatic urethral lift. This procedure inserts an implant to push the lobes of the prostate away from the urethra. Follow these instructions at home: ? Take rglw-ccu-reswfzn and prescription medicines only as told by your health care provider. ? Monitor your symptoms for any changes. Contact your health care provider with any changes. ? Avoid drinking large amounts of liquid before going to bed or out in public. ? Avoid or reduce how much caffeine or alcohol you drink. ? Give yourself time when you urinate. ? Keep all follow-up visits. This is important. Contact a health care provider if: ? You have unexplained back pain. ? Your symptoms do not get better with treatment. ? You develop side effects from the medicine (more content not included)... Normal [facility] Urology Office/Clinic Noteon 06-10-2023 Urology Office/Clinic Note Chief Complaint 3 month F/U with PVR HPI Staff 3 mos f/u w/PVR Previous DX:BPH w/Urinary Obstruction, Gross Hematuria, and Incomplete Bladder Emptying. 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 I have reviewed and verified the staff HPI to be accurate for this encounter. There have been no associated fever, chills, flank pain, or blood in the urine. Denies any urinary infections since last encounter. Review of Systems PHQ Score Initial Depression Screen Score: 0 ROS - Provider Constitutional: denies weight loss, denies hot flashes. Eyes: denies eye problems. Gastrointestinal: denies nausea, denies vomiting. Cardiovascular: denies chest pain or angina. Integumentary: no dryness Musculoskeletal: denies musculoskeletal symptoms. ENMT: denies otolaryngeal symptoms. Respiratory: no shortness of breath. Heme/Lymph: denies easy bleeding tendency, denies easy bruising tendency. Psychiatric: no confusion, no anxiety. Genitourinary: See HPI. Physical Exam Vitals & Measurements T: 36.6 ?C(Temporal Artery) HR: 78(Peripheral) BP: 124/82 HT: 69 in HT: 175 cm WT: 86.7 kg WT: 190.74 lb BMI: 28.31 General Appearance: alert, no distress, well nourished, well developed male. Assessment/Plan 1. 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 Cath removed 03/31/23. PSA monitoring by PCP. Not taking any BPH meds. IPSS 13(20) Flow pretty good and occasional urgency. Advised pt that he is having delayed recovering from his UroLift. Pt states that he had these sxs prior to his procedure. Pt states that he has stopped his coffee intake and is drinking mostly water. Advised pt that his main problem is he isn't emptying completely. Discussed starting an OAB med to help with his urgency, but there's risks contributing to the pt not emptying his bladder completely. Pt states that his sxs his sxs are worse in the morning, has them at night, but most bothersome is in the morning. Pt states that he drinks a little bit of orange juice with his meds in the morning. Advised pt to try to d/c drinking the orange juice in the morning to see if this helps his sxs. Advised pt that if this does not help his sxs, then we can start an OAB med. Advised pt that we can send a script for Oxybutynin today. Pt states that he would like to try the dietary modifications first. Follow up in 4 mos w/PVR. All questions/concerns were discussed. Pt to call the office if he encounters any issues prior. Pt acknowledges understanding. -Dietary modifications. -If pt's sxs do not resolve, he is to call our office and we will send a script for Oxybutynin 5mg QD, in the morning, to pt's preferred pharm. Discussed the medication side effects, and the patient will monitor closely for these, as well as for symptom improvement. If severe side effects occur, the medication should be stopped and the office notified. 2. Gross hematuria (R31.0: Gross hematuria) UA today shows trace-intact blood and no signs of infection. Pt denies any visible blood in his urine. Pt knows to call our office if he is to see visible blood in his urine in the future. 3. Incomplete bladder emptying (R33.9: Retention of urine, unspecified) PVR 141(110) -See #1 Overall the patient has a better urinary flow but he still scoring a 13 on his IPSS score sheet secondary to urgency and frequency symptoms. We discussed the difficulty in recommending full dosage of anticholinergics to try to help this because of his urinary retention which is 140 cc. He does not yet want to try medications. Bladder irritants sheet given as noted above and he will decrease his orange juice intake over the next week or so. He will call for follow-up. In addition he is still fairly fresh out status post procedural intervention itself and perhaps symptoms will improve over the time anyway. We hope that is the case. Follow-up 4 months Follow-up With When Contact Information Carlos Enrique LEWIS MD, URL In 4 months [address] [place], [place] [id number]- Additional Instructions: w/PVR Patient Education Benign Prostatic Hyperplasia I, Liudmila Wells, personally scribed for Dr. Lewis on 06/10/2023 1 (more content not included)... Normal [facility] Comment on above: Result Comment: Elec tronically Signed By: Carlos Enrique LEWIS MD\.br\Date and Time Signed: 06/10/23 11:03 EDT\.br\Electronically Co-Signed By: Liudmila Wells\.br\Date and Time Co-Signed: 06/10/23 11:01 EDT Ambulatory Visit Summaryon 0 04-07-2023 Ambulatory Visit Summary MONTSE MARTINEZ :1950 Visit Date:04/07/2023 Ambulatory Visit Instructions Your Diagnosis BPH with urinary obstruction Gross hematuria Incomplete bladder emptying Tests Performed Urnls Dip Stick Auto w/o Microscopy POC [id number] Your Care Team Attending Physician - Carlos Enrique LEWIS MD Primary Care Physician - SOLE DALEY DO This Is Your Medications List Contact prescribing physician if questions or concerns ascorbic acid (Vitamin C) aspirin levothyroxine losartan (losartan 25 mg Tab) multivitamin with minerals (Centrum Men's) polycarbophil (Fiber Lax) rosuvastatin (rosuvastatin 20 mg Tab) saw bebeto Procedures Performed Transurethral insertion of prostatic urethral lift implant (03/24/2023), Cystoscopy (03/04/2023), Colonoscopy, flexible; with removal of tumor(s), polyp(s), or other lesion(s) by snare technique (05/31/2021), Excision of cervical lymph node, left shoulder arthroscopy, Repair of umbilical hernia. Discharge Vitals Heart Rate (Peripheral) 61 Blood Pressure 128/86 Height 175 cm Height 69 in Weight 86.7 kg Weight 190.74 lb BMI 28.31 What to do next Scheduled Follow-Up Appointments Friday 10:00 AM EDT With: BRANDEN ELIZALDE, Carlos Enrique Falk Where: [facility] Patient Educationon 04-07-20 Patient Education Urology Benign Prostatic Hyperplasia Benign prostatic hyperplasia (BPH) is an enlarged prostate gland that is caused by the normal aging process. The prostate may get bigger as a man gets older. The condition is not caused by cancer. The prostate is a walnut-sized gland that is involved in the production of semen. It is located in front of the rectum and below the bladder. The bladder stores urine. The urethra carries stored urine out of the body. An enlarged prostate can press on the urethra. This can make it harder to pass urine. The buildup of urine in the bladder can cause infection. Back pressure and infection may progress to bladder damage and kidney (renal) failure. What are the causes? This condition is part of the normal aging process. However, not all men develop problems from this condition. If the prostate enlarges away from the urethra, urine flow will not be blocked. If it enlarges toward the urethra and compresses it, there will be problems passing urine. What increases the risk? This condition is more likely to develop in men older than 50 years. What are the signs or symptoms? Symptoms of this condition include: ? Getting up often during the night to urinate. ? Needing to urinate frequently during the day. ? Difficulty starting urine flow. ? Decrease in size and strength of your urine stream. ? Leaking (dribbling) after urinating. ? Inability to pass urine. This needs immediate treatment. ? Inability to completely empty your bladder. ? Pain when you pass urine. This is more common if there is also an infection. ? Urinary tract infection (UTI). How is this diagnosed? This condition is diagnosed based on your medical history, a physical exam, and your symptoms. Tests will also be done, such as: ? A post-void bladder scan. This measures any amount of urine that may remain in your bladder after you finish urinating. ? A digital rectal exam. In a rectal exam, your health care provider checks your prostate by putting a lubricated, gloved finger into your rectum to feel the back of your prostate gland. This exam detects the size of your gland and any abnormal lumps or growths. ? An exam of your urine (urinalysis). ? A prostate specific antigen (PSA) screening. This is a blood test used to screen for prostate cancer. ? An ultrasound. This test uses sound waves to electronically produce a picture of your prostate gland. Your health care provider may refer you to a specialist in kidney and prostate diseases (urologist). How is this treated? Once symptoms begin, your health care provider will monitor your condition (active surveillance or watchful waiting). Treatment for this condition will depend on the severity of your condition. Treatment may include: ? Observation and yearly exams. This may be the only treatment needed if your condition and symptoms are mild. ? Medicines to relieve your symptoms, including: ? Medicines to shrink the prostate. ? Medicines to relax the muscle of the prostate. ? Surgery in severe cases. Surgery may include: ? Prostatectomy. In this procedure, the prostate tissue is removed completely through an open incision or with a laparoscope or robotics. ? Transurethral resection of the prostate (TURP). In this procedure, a tool is inserted through the opening at the tip of the penis (urethra). It is used to cut away tissue of the inner core of the prostate. The pieces are removed through the same opening of the penis. This removes the blockage. ? Transurethral incision (TUIP). In this procedure, small cuts are made in the prostate. This lessens the prostate's pressure on the urethra. ? Transurethral microwave thermotherapy (TUMT). This procedure uses microwaves to create heat. The heat destroys and removes a small amount of prostate tissue. ? Transurethral needle ablation (TUNA). This procedure uses radio frequencies to destroy and remove a small amount of prostate tissue. ? Interstitial laser coagulation (ILC). This procedure uses a laser to destroy and remove a small amount of prostate tissue. ? Transurethral electrovaporization (TUVP). This procedure uses electrodes to destroy and remove a small amount of prostate tissue. ? Prostatic urethral lift. This procedure inserts an implant to push the lobes of the prostate away from the urethra. Follow these instructions at home: ? Take kfek-jhw-zchinew and prescription medicines only as told by your health care provider. ? Monitor your symptoms for any changes. Contact your health care provider with any changes. ? Avoid drinking large amounts of liquid before going to bed or out in public. ? Avoid or reduce how much caffeine or alcohol you drink. ? Give yourself time when you urinate. ? Keep all follow-up visits. This is important. Contact a health care provider if: ? You have unexplained back pain. ? Your symptoms do not get better with treatment. ? You develop side effects from the medicine (more content not included)... Normal [facility] [place] 04-07-2023 Screens [id number] D:127 Normal [facility] Urology Office/Clinic Noteon 04-07-2023 Urology Office/Clinic Note Chief Complaint Follow up to Urolift HPI Staff Pt here for 2 wk PO Urolift. S/p Urolift 5 implants 03/24/23. Cath removed 03/31/23. PVR 110 Dysuria: _pain goes back and forth Incomplete bladder emptying: he can not tell Hematuria: Seen blood this morning, UA is moderate Frequency: once every hour Urgency: sometimes urge is worse when he stands up Nocturia: _yes, 4 times last night but usually 2-3 times Stream: denies hesitation Leaking: _yes Post void dripping: yes most times Wearing pads/ Depends: _denies Urge incontinence: sometimes Stress incontinence: denies Incontinence without Sensory Awareness: denies Abdominal pain: denies Flank pain: denies Sexual complaints: denies History of Present Illness Tests reviewed: reviewed UA, op note. I have reviewed the previous health record information and history for this patient from Dr. Lewis. I have reviewed and verified the staff HPI to be accurate for this encounter. There have been no associated fever, chills, flank pain, or blood in the urine. Denies any urinary infections since last encounter. Review of Systems PHQ Score Initial Depression Screen Score: 0 ROS - Provider Constitutional: denies weight loss, denies hot flashes. Eyes: denies eye problems. Gastrointestinal: denies nausea, denies vomiting. Cardiovascular: denies chest pain or angina. Integumentary: no dryness Musculoskeletal: denies musculoskeletal symptoms. ENMT: denies otolaryngeal symptoms. Respiratory: no shortness of breath. Heme/Lymph: denies easy bleeding tendency, denies easy bruising tendency. Psychiatric: no confusion, no anxiety. Genitourinary: See HPI. Physical Exam Vitals & Measurements HR: 61(Peripheral) BP: 128/86 HT: 69 in HT: 175 cm WT: 86.7 kg WT: 190.74 lb BMI: 28.31 General Appearance: alert, no distress, well nourished, well developed male. Genitourinary: normal scrotum, normal testes, normal urethra, normal epididymis, normal vas deferens/spermatic cord. Flank Pain: none. Bladder: nonpalpable. Assessment/Plan 1. 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 Cath removed 03/31/23. PSA monitoring by PCP [1]. Not taking any BPH meds. IPSS 20 (14). Flow pretty good. Occasional urge incontinence. Nocturia 2-4x/time. Educated pt OAB sxs will gradually subside. Offered bladder medication to help with sxs. Counseled pt on bladder irritants. Follow up 3 mos or sooner if needed. Pt understands and agrees with plan. -Limit/avoid bladder irritants. Can take Oxybutynin if sxs are bothersome (has script from cath irritation). 2. Gross hematuria (R31.0: Gross hematuria) Last saw gross hematuria this morning. UA today moderate blood, neg for infection. Expected after procedure, will cont to monitor for resolution with time and healing. 3. Incomplete bladder emptying (R33.9: Retention of urine, unspecified) PVR today 110 cc. Overall the patient is experiencing some overactive bladder symptomatology. He will try to decrease his coffee intake. He is retaining a bit at 110 cc and this needs to be monitored. We will see him back in 2 to 3 months with a PVR. He can take his 5 mg of oxybutynin at at bedtime on an as needed basis but he does know that we may put him in his risk for worsening urinary retention. Follow-up With When Contact Information Carlos Enrique LEWIS MD, URL [address] [id number] Additional Instructions: 3 mos with PVR, UA Patient Education Benign Prostatic Hyperplasia I, Ibis Puente, personally scribed for Dr. Lewis on 04/07/2023 10:48:22. . Documentation recorded by the scribe, Ibis Puente, accurately reflects the services(s) I performed and decisions made by me. Authenticated by Dr. Lewis on 04/07/2023 10:52:22. Portions of this record may have been created with voice recognition artificial intelligence software, specifically [employer] and or [employer]. Substitutions may have occurred due to the inherent limitations of voice recognition and artificial intelligence software. Problem List/Past Medical History Ongoing Arthritis Atrial fibrillation BPH with urinary obstruction Colon polyps Diverticulosis Gross hematuria Hemorrhoids History of colon polyps Hyperlipidemia Hyperthyroidism Incomplete bladder emptying Historical AF - Atrial fibrillation Aspirin prophylaxis H/O: arthritis high cholesterol Hypercholesterolemia Rotator cuff tear shoulder problems Procedure/Surgical History Transurethral insertion of prostatic urethral lift implant (03/24/2023), Cystoscopy (03/04/2023), Colonoscopy, flexible; with removal of tumor(s), polyp(s), or other lesion(s) by snare technique (05/31/2021), Excision of cervical lymph node, left shoulder arthroscopy, Repair of umbilica (more content not included)... Normal [facility] Comment on above: Result Comment: Elec tronically Signed By: Carlos Enrique LEWIS MD\.br\Date and Time Signed: 04/07/23 10:53 EDT\.br\Electronically Co-Signed By: Ibis Puente\.br\Date and Time Co-Signed: 04/07/23 10:48 EDT\.br\Electronically Co-Signed By: Ibis Puente\.br\Date and Time Co-Signed: 04/07/23 10:51 EDT Ambulatory Visit Summaryon 0 03-31-2023 Ambulatory Visit Summary MONTSE MARTINEZ :1950 Visit Date:03/31/2023 Ambulatory Visit Instructions Your Care Team Attending Physician - Carlos Enrique LEWIS MD Primary Care Physician - SOLE DALEY DO Referring Physician - Carlos Enrique LEWIS MD This Is Your Medications List acetaminophen-tramadol (Ultracet 325 mg-37.5 mg Tab) ascorbic acid (Vitamin C) aspirin ciprofloxacin (Cipro 500 mg Tab) ciprofloxacin (Cipro 500 mg Tab) diazepam (Valium 10 mg Tab) levothyroxine losartan (losartan 25 mg Tab) multivitamin with minerals (Centrum Men's) oxybutynin (oxybutynin 5 mg Tab) polycarbophil (Fiber Lax) rosuvastatin (rosuvastatin 20 mg Tab) vianney tate Procedures Performed Cystoscopy (03/04/2023), Colonoscopy, flexible; with removal of tumor(s), polyp(s), or other lesion(s) by snare technique (05/31/2021), Excision of cervical lymph node, left shoulder arthroscopy, Repair of umbilical hernia. What to do next Scheduled Follow-Up Appointments Friday 10:15 AM EDT With: Carlos Enrique LEWIS MD Where: [facility] Consent for Procedure/Surger yon 03-24-2023 Consent for Procedure/Surgery [id number] D:127 Normal [facility] Consent for Treatmenton 03-08 Consent for Treatment [id number] D:127 [facility] Inpatient Patient Summaryon 03-24-2023 Inpatient Patient Summary [place] [id number] Clinical Summary Person Information Name: MONTSE MARTINEZ Age: 72 Years : 1950 Sex: Male PCP: SOLE DALEY DO Marital Status: Race: White Ethnicity: Non- or Language: Mauritian Visit Id: Visit Reason: BPH WITH LUTS Speciality: Acuity: Enc Type: Outpatient Med Service: Surgery Arrival: 03/24/2023 13:28:30 Discharge: Dispo Type: Address: [address] [place] [address] [id number] Provider Notes: Diagnosis: Problems Active BPH with urinary obstruction Hyperthyroidism Hyperlipidemia Atrial fibrillation Arthritis Hemorrhoids Diverticulosis Colon polyps History of colon polyps Smoking Status: Functional Status: Sensory Deficits: History of Falls: Mobility Assistance Prior to Admission: ADLs: Current Level of Assistance for Self-Care/Mobility: Cognitive Status: Allergies No Known Allergies Laboratory or Other Results This Visit (last charted value for your 03/24/2023 visit) No Laboratory or Other Results This Visit Measurements: Height: 179 cm Weight: Blood Pressure: Not Valued / Not Valued BMI: Procedures No Procedures Documented Immunizations No Immunizations Documented This Visit Final Med List: acetaminophen-tramadol (Ultracet 325 mg-37.5 mg Tab) 1 Tablets By Mouth every 4 hours. Take 1-2 tabs q4hr PRN after the procedure. Refills: 0. ascorbic acid (Vitamin C) aspirin 325 Milligram By Mouth every day. ciprofloxacin (Cipro 500 mg Tab) 1 Tablets By Mouth As Directed. Take 1 tab the day prior to procedure then 1 tab the day of procedure after procedure is complete. Refills: 0. ciprofloxacin (Cipro 500 mg Tab) 1 Tablets By Mouth 2 times a day. Start 3 days prior to the procedure. Refills: 0. diazepam (Valium 10 mg Tab) 1 Tablets By Mouth Once. Take one hour prior to procedure. Refills: 0. levothyroxine 125 Microgram By Mouth every day. losartan (losartan 25 mg Tab) By Mouth every day. multivitamin with minerals (Centrum Men's) 1 Tablets By Mouth every day. polycarbophil (Fiber Lax) 2 grams By Mouth every day. rosuvastatin (rosuvastatin 20 mg Tab) By Mouth every day. saw palmetto 450 Milligram By Mouth every day. Care Team Members: Attending Physician: Carlos Enrique LEWIS MD Consulting Physician: Referring Physician: Carlos Enrique LEWIS MD Follow up: With: Address: When: Carlos Enrique LEWIS [address], [address], [facility] [address] [place] [address] Business (1) Within 1 week Comments: Call for followup appointment to remove the catheter. Push fluids to keep the urine clear. Patient Education Information: EU - Urolift Discharge Instructions (Custom) [facility] IntraOperative Documentson 0 03-24-2023 IntraOperative Documents [id number] D:127 [facility] Main OR Intraoperative Recor don 03-24-2023 Main OR Intraoperative Record IntraOp Document Type FTURO Summary Primary Physician: Carlos Enrique LEWIS MD Finalized Date/Time: 03/24/23 15:46:59 Pt. Name: MONTSE MARTINEZ/Sex: 1950 Male Med Rec #: [id number] Physician: Carlos Enrique LEWIS MD Financial #: [id number] Pt. Type: O Room/Bed: / Admit/Disch: 03/24/23 13:28:30 - Institution: Case Times FTURO Entry 1 Patient Times In Room 03/24/23 14:57:00 Out Room 03/24/23 15:37:00 Procedure Times Start 03/24/23 15:03:00 Stop 03/24/23 15:28:00 Anesthesia Times Last Modified By: Florecita MENDOZA, Larissa ESPINOZA 03/24/23 15:45:57 Case Attendance FTURO Entry 1 Entry 2 Entry 3 Case Attendee Carlos Enrique LEWIS MD RN, KYLEOR, Steffi Hernandez CST Role Performed Surgeon - Primary Corn Grower - Relief Scrub - Primary Time In 03/24/23 14:57:00 03/24/23 14:57:00 03/24/23 14:57:00 Time Out 03/24/23 15:37:00 03/24/23 15:37:00 03/24/23 15:37:00 Procedure CYSTOSCOPY LOCAL CYSTOSCOPY LOCAL CYSTOSCOPY LOCAL UROLIFT(.) UROLIFT(.) UROLIFT(.) Comments Last Modified By: Florecita MENDOZA, CNOR, Florecita MENDOZA, KYLEOR, Florecita MENDOZA, KYLEOR, Larissa 03/24/23 Larissa 03/24/23 Larissa 03/24/23 15:45:58 15:45:58 15:45:58 Surgical Procedures FTURO Entry 1 Procedure Description Procedure CYSTOSCOPY LOCAL UROLIFT Modifiers . Surgeon Description cysto with urolift Primary Procedure Yes Primary Surgeon Carlos Enrique LEWIS MD Start 03/24/23 15:03:00 Stop 03/24/23 15:28:00 Anesthesia Type Local Surgical Service Urology Wound Class 2 - Clean-Contaminated Last Modified By: Florecita MENDOZA, KYLEOR, Larissa 03/24/23 15:45:59 General Case Data FTURO Pre-Care Text: Classifies surgical wound, implements aseptic technique, initiates traffic control Entry 1 Case Information OR URO 1 FT Case Level None Wound Class 2 - Clean-Contaminated Specialty Urology Preop Diagnosis BPH WITH LUTS Postop Same As Preop No Postop Diagnosis BPH WITH LUTS Outcomes Met? Yes Last Modified By: Florecita MENDOZA, KYLEOR, Larissa 03/24/23 14:52:27 Post-Care Text: The patient is free from signs and symptoms of infection EU IntraOp - FTURO Pre-Care Text: Implements protective measures prior to operative or invasive procedure, confirms identity before the operative or invasive procedure, verifies operative procedure, surgical site, and laterality Entry 1 EU Perioperative Protocols Procedure(s) CYSTOSCOPY LOCAL Patient Identity Birthday, ID Band UROLIFT(.) Verified (select at Check, Patient least 2): Participation Consents / H and P HandP, Surgery/Procedure Operative Site N/A Verified Consent Marking Verified Surgical Site Yes Laterality Verified n/a Verified Procedure Verified Yes Correct Patient Yes Position Verified Availability Equipment, Medication Time Out Carlos Enrique LEWIS MD, Verified (If Participants Florecita MENDOZA, CNOR, Applicable) Mary Dias CST, Kimberly A Time Out Complete 03/24/23 14:59:00 Allergies Reviewed? Yes Allergies Reviewed Self/Patient With Body Position Low Lithotomy Prep Area penis Prep Agents Betadine Solution Skin. Condition Unable to Visualize Additional None Specimens Collected Vitals - EU Blood Pressure Pulse Respirations SPO2 EBL 0 IandO - EU Total Intake 0 mL Total Output 0 mL Outcomes Met? Yes Last Modified By: OLGA Bernabe RN, Ruthann 03/24/23 15:46:57 Post-Care Text: The patient is free from signs and symptoms of injury caused by extraneous objects Implant Log FTURO Pre-Care Text: Records devices implanted during the operative or invasive procedure Entry 1 Implant/Explant Implant Implant Identification Description urolift Serial Number ULC-2 Lot Number [id number] Flow Machine Operator neotract Expiration Date 11/05/23 Usage Data Implant Site pprostate Quantity 5 Outcomes Met? Yes Last Modified By: OLGA Bernabe RN, Ruthann 03/24/23 15:21:51 Post-Care Text: The patient is free from signs and symptoms of injury caused by extraneous objects Sign Out FTURO Entry 1 Before Patient Leaves OR Nurse verbally Yes Nurse verbally n/a confirms with the confirms with the team the name of team that the procedure(s) instrument, sponge, recorded and needle counts are correct (or N/A) Nurse verbally n/a Nurse verbally n/a confirms with the confirms with the team how the team whether there specimen is labeled are any equipment (including patient problems to be name), if applicable addressed Sign Out Complete 03/24/23 15:37:00 Last Modified By: OLGA Bernabe RN, Ruthann 03/24/23 15:46:23 Case Comments Finalized By: OLGA Bernabe RN, Ruthann Document Signatures Signed By: OLGA Bernabe RN, Ruthann 03/24/23 15:46 Normal [facility] Main OR Preoperative Recordo n 03-24-2023 Main OR Preoperative Record Holding Area Document Type FTURO Summary Primary Physician: Carlos Enrique LEWIS MD Finalized Date/Time: 03/24/23 15:08:29 Pt. Name: MONTSE MARTINEZ/Sex: 1950 Male Med Rec #: [id number] Physician: Carlos Enrique LEWIS MD Financial #: [id number] Pt. Type: O Room/Bed: / Admit/Disch: 03/24/23 13:28:30 - Institution: Case Times Holding FTURO Pre-Care Text: Verifies consent for planned procedure, identifies individual values and wishes concerning care, includes family members in perioperative teaching Secures patient's records' belongings, and valuables, maintains patient's dignity and privacy, and maintains patient confidentiality Entry 1 In Holding 03/24/23 14:40:00 Outcomes Met? Yes Last Modified By: Steffi Gilman RN 03/24/23 14:40:45 Post-Care Text: The patient participates in decisions affecting his or her perioperative plan of care The patient's right to privacy is maintained Surgery Checklist FTURO Entry 1 Patient Birthday, ID Band Procedure History and Physical, Identification: Check, Patient Verification: Surgical Consent, With Participation Patient NPO after Midnight: n/a Personal Items: Glasses, Jewelry Personal Items RING X 1; GLASSES Limitations: UP AD MADELEINE Comment: Complaints of Pain: No Skin Integrity Dry, Warm Vitals - EU Blood Pressure 145/96 Pulse 65 bpm Respirations 16 br/min SPO2 94 % Additional None RN Reviewed Yes Specimens Collected Last Modified By: Steffi Gilman RN 03/24/23 14:42:56 General Comments: 36.9C -TEMP. REJI CHUNG Finalized By: OLGA Bernabe RN, Ruthann Document Signatures Signed By: Steffi Gilman RN 03/24/23 14:45 Steffi Gilman RN 03/24/23 14:43 Steffi Gilman RN 03/24/23 14:57 OLGA Bernabe RN, Ruthann 03/24/23 15:08 Normal [facility] Operative Reporton Operative Report Patient: MARION MARTINEZ A Age: 72 years Sex: Male : 1950 Associated Diagnoses: None Author: Carlos Enrique LEWIS MD Procedure Operative Information Details: Date/ Time: 03/24/2023 15:31:00. Pre-Op Dx: BPH w/ LUTS - N40.1. Post-Op Dx: Same. Anesthesia Type: Local. Procedure: Cystoscopy with UroLift Prostatic Urethral Lift. Complications: None. Risks/Benefits/Informed Consent: Surgical risks, benefits, details of the procedure have been explained to the patient, Full informed consent has been obtained. Indications: He is strongly desirous to try the Urolift procedure, Does not want to be on intermission coordinator prostate medications. . Intraoperative Information Prepped: Patient received 1 hour prior to procedure (10 mg diazepam, 5/325 mg of [place]), Local Anesthesia (60cc 2% Xylocaine liquid inserted into bladder, 20cc Xylocaine 2% jelly inserted into urethra, Penile clamp applied for 20 min dwell prior to procedure with patient in sitting position). Procedure: A 20F cystoscope was inserted into the bladder, The cystoscopy bridge was replaced with a UroLift delivery device, The first treatment site was the patient's left side approximately 1.5 cm distal to the bladder neck, The distal tip of the delivery device was then angled laterally approximately 20 degrees at this position to compress the lateral lobe, The trigger was pulled, thereby deploying a needle containing the implant through the prostate, The needle was then retracted, allowing one end of the implant to be delivered to the capsular surface of the prostate, The implant was then tensioned to assure capsular seating and removal of slack monofilament, The device was then angled back toward midline and slowly advanced proximally (typically 3-4mm) until cystoscopic verification of the monofilament being centered in the delivery bay, The urethral end piece was then affixed to the monofilament thereby tailoring the size of the implant, Excess filament was then severed, The delivery device was then readvanced into the bladder, The delivery device was then replaced with cystoscope and bridge and the implant location and opening effect was confirmed cystoscopically, The same procedure was then repeated on the right side, Two additional implants were delivered just proximal to the veru montanum, again one on right and one on left side of the prostate, following the same technique, A persistent area of obstruction was identified and a fifth Urolift implant was inserted following the same technique, A final cystoscopy was conducted first to inspect the location and state of each implant, And second, to confirm the presence of a continuous anterior channel was present through the prostatic urethra with irrigation flow turned off, All instruments were removed, The patient was then allowed to sit up, A 16 Fr Hall catheter was placed at the end of the procedure. Specimens Removed: None. Devices Implanted: 5 Urolift devices. Postoperative Information Discharge: The patient tolerated the procedure well and was subsequently discharged home, F/U in one week for Hall removal and voiding trial. . Normal [facility] Comment on above: Result Comment: Elec tronically Signed By: Carlos Enrique LEWIS MD\.br\Date and Time Signed: 03/24/23 15:32 EDT Outpatient Surgery Discharge Instructionon 03-24-2023 Outpatient Surgery Discharge Instruction [address] [address] Patient Discharge Instructions PERSON INFORMATION Name: MONTSE MARTINEZ Date of : 1950 Current Date: 03/24/2023 15:30:29 PHYSICIANS Admitting Physician: Carlos Enrique LEWIS MD Comment: Discharge Diagnosis: MONTSE MARTINEZ has been given the following list of follow-up instructions, prescriptions, and patient education materials: IF UNABLE TO CONTACT YOUR PHYSICIAN AND YOU FEEL IT IS AN EMERGENCY, GO TO THE NEAREST EMERGENCY ROOM OR CALL 911 Follow up: With: Address: When: Carlos Enrique LEWIS [address] [place] [address], [address], [address] [address] Business (1) Within 1 week Comments: Call for followup appointment to remove the catheter. Push fluids to keep the urine clear. Comment: PATIENT EDUCATION INFORMATION Instructions: Urolift ? Some men may experience discomfort after the procedure. On occasion, some bloody discharge may be apparent from the penis. You may have soreness in the lower abdomen, and it may be uncomfortable to sit. You may experience the need to urinate more frequently and with greater urgency. These are all normal reactions to the procedure. It is important to take care of yourself the next couple of days to facilitate a speedy recovery. The following are some suggestions: -Have someone drive you home after the procedure. -Drink plenty of water; 8 10oz glasses per day. If your urine looks dark yellow, you are probably not drinking enough water. -Take your medications as prescribed -If you have a catheter placed, do not engage in strenuous activity until your catheter has been removed. You may take a shower but avoid a bath while you have a catheter. - In the event you have to go home with a catheter, you may notice leakage of urine and/or yellow discharge/blood around the catheter. This is normal and no cause to be alarmed; UNLESS you are having significant pain associated with the leakage or the leakage does not stop. -You can use Tylenol or Advil for discomfort. Use AZO (over the counter) for burning with urination ? It is normal to have some blood in your urine after surgery. One day it may be clear, and the next day it might be bloody. Do not be alarmed, this can last a week and sometimes longer. ? It is normal to feel like you have to urinate very often but nothing comes out. You may feel like you have to urinate again, or feel pressure in the pelvic area, even right after you just urinated. ? You may leak and not make it to the bathroom. These are called bladder spasms and are common after the procedure. ? It is normal to have some discomfort after the procedure. This can last up to 4 weeks and includes: pelvic ache, urinary frequency, and urinary urgency. Most patients report symptoms getting better within 2 weeks. ? Finish the antibiotic which you have already started ? If you were given drugs to make you drowsy or pain medication follow these instructions: -You should spend the remainder of the day and evening resting -You should not attempt to walk, including going to the bathroom without assistance. You may be lightheaded from the medication you received. -Eat light today to avoid nausea. You should be able to return to your normal diet 24 to 36 hours after your procedure. -For the next 24 hours, do not consume alcohol, attempt to drive, use power tools, sign important documents or make important decisions. After that only do so if you feel perfectly normal and alert. -Follow carefully any verbal or written instructions your surgeon may give you. ? You should contact your physician if you experience any of the following: -Temperature above 101.5 -Excessive urinary bleeding or bleeding from the penis -Continuous bladder spasms -Painful, swollen and/or inflated testicle(s) or scrotum. -Unable to void spontaneously or the indwelling catheter is not draining urine or is blocked -Bright bishop red urine that does not stop after 3 days -Unable to urinate after 7-8 hours or bladder feeling full and you can't urinate -If you have excessive or persistent pain, swelling, bleeding, nausea, vomiting, or any problems, you should first call your surgeon for advice. If you are unable to contact your surgeon, seek help from a hospital emergency room. If your doctor suggests that you go to the emergency room for catheterization for inability to urinate, be sure to tell the facility personnel to use a Coude (pronounced intermission coordinator-day) tipped catheter. I, MONTSE MARTINEZ, have received the attached patient education materials/instructions and have verbalized understanding: May we do a follow up call? Yes No I was present when discharge instructions were given Patient Signature Date Clinican/Nurse Signature (more content not included)... Normal [facility] Consent for Procedure/Surger yon 03-05-2023 Consent for Procedure/Surgery [id number] D:127 [facility] Ambulatory Visit Summaryon 0 03-04-2023 Ambulatory Visit Summary MONTSE MARTINEZ :1950 Visit Date:03/04/2023 Ambulatory Visit Instructions Your Diagnosis BPH with urinary obstruction Your Care Team Attending Physician - Carlos Enrique LEWIS MD Primary Care Physician - SOLE DALEY DO This Is Your Medications List ciprofloxacin (Cipro 500 mg Tab) Contact prescribing physician if questions or concerns ascorbic acid (Vitamin C) aspirin levothyroxine losartan (losartan 25 mg Tab) multivitamin with minerals (Centrum Men's) polycarbophil (Fiber Lax) rosuvastatin (rosuvastatin 20 mg Tab) saw bebeto Procedures Performed Cystoscopy (03/04/2023), Colonoscopy, flexible; with removal of tumor(s), polyp(s), or other lesion(s) by snare technique (05/31/2021), Excision of cervical lymph node, left shoulder arthroscopy, Repair of umbilical hernia. Discharge Vitals Heart Rate (Peripheral) 91 Respiratory Rate 16 Blood Pressure 136/84 Height 179 cm Height 70 in Weight 89 kg Weight 195.8 lb BMI 27.78 What to do next You Need to Schedule the Following Appointments Follow Up with BRANDEN ELIZALDE, MAX [place] When: Where: [address] [place], [place] [id number]- Medications What How Much When Instructions Unchanged ciprofloxacin (Cipro 500 mg Tab) 1 Tablets By Mouth As Directed Take 1 tab the day prior to procedure then 1 tab the day of procedure after procedure is complete Unchanged ascorbic acid (Vitamin C) See instructions Contact prescribing physician if questions or concerns Unchanged aspirin 325 Milligram By Mouth Every day Contact prescribing physician if questions or concerns Unchanged levothyroxine 125 Microgram By Mouth Every day Contact prescribing physician if questions or concerns Unchanged losartan (losartan 25 mg Tab) By Mouth Every day Contact prescribing physician if questions or concerns Unchanged multivitamin with minerals (Centrum Men's) 1 Tablets By Mouth Every day Contact prescribing physician if questions or concerns Unchanged polycarbophil (Fiber Lax) 2 grams By Mouth Every day Contact prescribing physician if questions or concerns Unchanged rosuvastatin (rosuvastatin 20 mg Tab) By Mouth Every day Contact prescribing physician if questions or concerns Unchanged saw palmetto 450 Milligram By Mouth Every day Contact prescribing physician if questions or concerns Allergies No Known Allergies Problems Ongoing - Any problem that you are currently receiving treatment for. Arthritis Atrial fibrillation BPH with urinary obstruction Colon polyps Diverticulosis Hemorrhoids History of colon polyps Hyperlipidemia Hyperthyroidism Historical - Any problem that you are no longer receiving treatment for. AF - Atrial fibrillation Aspirin prophylaxis H/O: arthritis high cholesterol Hypercholesterolemia Rotator cuff tear shoulder problems Education Materials Benign Prostatic Hyperplasia Benign prostatic hyperplasia (BPH) is an enlarged prostate gland that is caused by the normal aging process. The prostate may get bigger as a man gets older. The condition is not caused by cancer. The prostate is a walnut-sized gland that is involved in the production of semen. It is located in front of the rectum and below the bladder. The bladder stores urine. The urethra carries stored urine out of the body. An enlarged prostate can press on the urethra. This can make it harder to pass urine. The buildup of urine in the bladder can cause infection. Back pressure and infection may progress to bladder damage and kidney (renal) failure. What are the causes? This condition is part of the normal aging process. However, not all men develop problems from this condition. If the prostate enlarges away from the urethra, urine flow will not be blocked. If it enlarges toward the urethra and compresses it, there will be problems passing urine. What increases the risk? This condition is more likely to develop in men older than 50 years. What are the signs or symptoms? Symptoms of this condition include: ? Getting up often during the night to urinate. ? Needing to urinate frequently during the day. ? Difficulty starting urine flow. ? Decrease in size and strength of your urine stream. ? Leaking (dribbling) after urinating. ? Inability to pass urine. This needs immediate treatment. ? Inability to completely empty your bladder. ? Pain when you pass urine. This is more common if there is also an infection. ? Urinary tract infection (UTI). How is this diagnosed? This condition is diagnosed based on your medical history, a physical exam, and your symptoms. Tests will also be done, such as: ? A post-void bladder scan. This measures any amount of urine that may remain in your bladder after you finish urinating. ? A digital rectal exam. In a rectal exam, your health care provider checks your prostate by putting a lubric (more content not included)... Normal [facility] [place] 03-04-2023 Consent [id number] D:127 Normal [facility] Patient Educationon 03-04-20 23 Patient Education Urology Benign Prostatic Hyperplasia Benign prostatic hyperplasia (BPH) is an enlarged prostate gland that is caused by the normal aging process. The prostate may get bigger as a man gets older. The condition is not caused by cancer. The prostate is a walnut-sized gland that is involved in the production of semen. It is located in front of the rectum and below the bladder. The bladder stores urine. The urethra carries stored urine out of the body. An enlarged prostate can press on the urethra. This can make it harder to pass urine. The buildup of urine in the bladder can cause infection. Back pressure and infection may progress to bladder damage and kidney (renal) failure. What are the causes? This condition is part of the normal aging process. However, not all men develop problems from this condition. If the prostate enlarges away from the urethra, urine flow will not be blocked. If it enlarges toward the urethra and compresses it, there will be problems passing urine. What increases the risk? This condition is more likely to develop in men older than 50 years. What are the signs or symptoms? Symptoms of this condition include: ? Getting up often during the night to urinate. ? Needing to urinate frequently during the day. ? Difficulty starting urine flow. ? Decrease in size and strength of your urine stream. ? Leaking (dribbling) after urinating. ? Inability to pass urine. This needs immediate treatment. ? Inability to completely empty your bladder. ? Pain when you pass urine. This is more common if there is also an infection. ? Urinary tract infection (UTI). How is this diagnosed? This condition is diagnosed based on your medical history, a physical exam, and your symptoms. Tests will also be done, such as: ? A post-void bladder scan. This measures any amount of urine that may remain in your bladder after you finish urinating. ? A digital rectal exam. In a rectal exam, your health care provider checks your prostate by putting a lubricated, gloved finger into your rectum to feel the back of your prostate gland. This exam detects the size of your gland and any abnormal lumps or growths. ? An exam of your urine (urinalysis). ? A prostate specific antigen (PSA) screening. This is a blood test used to screen for prostate cancer. ? An ultrasound. This test uses sound waves to electronically produce a picture of your prostate gland. Your health care provider may refer you to a specialist in kidney and prostate diseases (urologist). How is this treated? Once symptoms begin, your health care provider will monitor your condition (active surveillance or watchful waiting). Treatment for this condition will depend on the severity of your condition. Treatment may include: ? Observation and yearly exams. This may be the only treatment needed if your condition and symptoms are mild. ? Medicines to relieve your symptoms, including: ? Medicines to shrink the prostate. ? Medicines to relax the muscle of the prostate. ? Surgery in severe cases. Surgery may include: ? Prostatectomy. In this procedure, the prostate tissue is removed completely through an open incision or with a laparoscope or robotics. ? Transurethral resection of the prostate (TURP). In this procedure, a tool is inserted through the opening at the tip of the penis (urethra). It is used to cut away tissue of the inner core of the prostate. The pieces are removed through the same opening of the penis. This removes the blockage. ? Transurethral incision (TUIP). In this procedure, small cuts are made in the prostate. This lessens the prostate's pressure on the urethra. ? Transurethral microwave thermotherapy (TUMT). This procedure uses microwaves to create heat. The heat destroys and removes a small amount of prostate tissue. ? Transurethral needle ablation (TUNA). This procedure uses radio frequencies to destroy and remove a small amount of prostate tissue. ? Interstitial laser coagulation (ILC). This procedure uses a laser to destroy and remove a small amount of prostate tissue. ? Transurethral electrovaporization (TUVP). This procedure uses electrodes to destroy and remove a small amount of prostate tissue. ? Prostatic urethral lift. This procedure inserts an implant to push the lobes of the prostate away from the urethra. Follow these instructions at home: ? Take [id number] and prescription medicines only as told by your health care provider. ? Monitor your symptoms for any changes. Contact your health care provider with any changes. ? Avoid drinking large amounts of liquid before going to bed or out in public. ? Avoid or reduce how much caffeine or alcohol you drink. ? Give yourself time when you urinate. ? Keep all follow-up visits. This is important. Contact a health care provider if: ? You have unexplained back pain. ? Your symptoms do not get better with treatment. ? You develop side effects from the medicine (more content not included)... Normal [facility] Urology Office/Clinic Noteon 03-04-2023 Urology Office/Clinic Note HPI Staff Pt is a 72 yr old Male here today for a cysto. Pts previous DX: BPH with urinary obstruction. History of Present Illness Tests reviewed: reviewed none. I have reviewed the previous health record information and history for this patient from Dr. Lewis. I have reviewed and verified the staff HPI to be accurate for this encounter. There have been no associated fever, chills, flank pain, or blood in the urine. Denies any urinary infections since last encounter. Review of Systems ROS - Provider Constitutional: denies weight loss, denies hot flashes. Eyes: denies eye problems. Gastrointestinal: denies nausea, denies vomiting. Cardiovascular: denies chest pain or angina. Integumentary: no dryness Musculoskeletal: denies musculoskeletal symptoms. ENMT: denies otolaryngeal symptoms. Respiratory: no shortness of breath. Heme/Lymph: denies easy bleeding tendency, denies easy bruising tendency. Psychiatric: no confusion, no anxiety. Genitourinary: See HPI. Physical Exam General Appearance: alert, no distress, well nourished, well developed male. Genitourinary: normal scrotum, normal testes, normal urethra, normal epididymis, normal vas deferens/spermatic cord. Flank Pain: none. Bladder: nonpalpable. Procedure Operative Information Anesthesia Type: Local Procedure: Local Cystoscopy Complications: None Surgical risks, benefits, details of the procedure have been explained to the patient. Full informed consent has been obtained. Intraoperative Information Prepped: Patient is brought back to the endoscopy suite. Patient is placed in supine position. Patient prepped in the usual fashion with Betadine solution. 2% Xylocaine Jelly is placed per Urethra. After waiting several minutes, the Cystoscope is introduced. The Urethra is: Normal The Prostatic Urethra is: _ 3.5 cm lateral lobe, no middle lobe. The Bladder: _No tumors or stones. Trabeculated: Moderate (2) The Ureteral orifices: Show efflux of clear urine Specimens Removed: None Removal: Cystoscope is removed. The patient tolerated it well. Postoperative Information Patient is discharged home with antibiotic coverage. Follow up arranged. Assessment/Plan 1. BPH with urinary obstruction (N40.1: Benign prostatic hyperplasia with lower urinary tract symptoms) Pt had IO cysto today wo complications to assess candidacy for minimally invasive prostate procedures. Not currently taking any prostate meds and pt is not interested in starting meds prefers to have minimally invasive procedure. Will schedule Urolift. The procedural risks, benefits, details, and treatment alternatives have been discussed with the patient. These include bleeding, infection, continued problems urinating, increased frequency with urgency during the healing process, painful urination, need for indwelling catheter after the procedure, and the need for additional procedures in the future, among others. The risk of penile erection problems and urinary leakage is less after this procedure than some others, but could still occur. Full informed consent has been obtained. Will order Local anesthesia. 2. Antiplatelet medication. He will have to be off aspirin products in preparation for the procedure today with the inherent risks. He does have the atrial fibrillation. Aspirin will be restarted once hematuria resolves. Overall the patient witnessed the cystoscopic evaluation today. We discussed the options. He is not interested in medication management as he does not want to take the pill for the rest of his life. We again discussed the minimally invasive treatment options. I recommended a UroLift procedure and he agrees with the plan. The usual prescriptions are sent, including [place], Ultracet, and antibiotic coverage. Portions of this record may have been created with voice recognition artificial intelligence software, specifically [employer] and or [employer]. Substitutions may have occurred due to the inherent limitations of voice recognition and artificial intelligence software. Follow-up With When Contact Information Carlos Enrique LEWIS MD, URL [address] [address]- Additional Instructions: schedule urolift Patient Education Benign Prostatic Hyperplasia IIbis, personally scribed for Dr. Lewis on 03/04/2023 07:43:24. . Documentation recorded by the scribe, Ibis Puente, accurately reflects the services(s) I performed and decisions made by me. Authenticated by Dr. Lewis on 03/04/2023 07:46:19. Problem List/Past Medical History Ongoing Arthritis Atrial fibrillation BPH with urinary obstruction Colon polyps Diverticulosis Hemorrhoids History of colon polyps Hyperlipidemia Hyperthyroidism Historical AF - Atrial fibrillation Aspirin prophylaxis H/O: arthritis high cholesterol Hypercholesterolem (more content not included)... Normal [facility] Comment on above: Result Comment: Elec tronically Signed By: Carlos Enrique LEWIS MD\.br\Date and Time Signed: 03/04/23 07:49 EDT\.br\Electronically Co-Signed By: Ibis Puente\.br\Date and Time Co-Signed: 03/04/23 07:43 EDT Basic Metabolic Panelon 06-2 Anion gap [Moles/Vol] 9.2 mmol/L Normal 6.0-15.0 [facility] Comment on above: Order Comment: NOT F ASTING JKW Performed By: #### B MP #### [facility] [address] Calcium [Mass/Vol] 8.9 mg/dL Normal 8.6-10.3 [facility] Comment on above: Order Comment: NOT F ASTING JKW Result Comment: PERF ORMED BY: [address] [place] [address] PATHOLOGIST CORRESPONDENCE REVIEW CLERK SU DOSS M.D. Performed By: #### B MP #### [facility] [address] Chloride [Moles/Vol] 104 mmol/L Normal 98-107 [facility] Comment on above: Order Comment: NOT F ASTING JKW Performed By: #### B MP #### [facility] [address] CO2 [Moles/Vol] 30.6 mmol/L Normal 21.0-31.0 [facility] Comment on above: Order Comment: NOT F ASTING JKW Performed By: #### B MP #### [facility] [address] Creatinine [Mass/Vol] 0.97 mg/dL Normal 0.70-1.30 [facility] Comment on above: Order Comment: NOT F ASTING JKW Performed By: #### B MP #### [facility] [address] [place] [address] [place] GFR/1.73 sq M.predicted MDRD (S/P/Bld) [Vol rate/Area] mL/min/{1.73_m2} Normal [facility] Comment on above: Order Comment: NOT F ASTING JKW Performed By: #### B MP #### [address] Glucose [Mass/Vol] 101 mg/dL High 70-100 [facility] Comment on above: Order Comment: NOT F ASTING JKW Result Comment: [place] Glucose Reference Range is dependent on time and content of last meal. Glucose of more than 200 mg/dL in a nonstressed, ambulatory subject supports the diagnosis of Diabetes Mellitus. ADA recommended reference range Performed By: #### B MP #### [facility] [address] Potassium [Moles/Vol] 4.8 mmol/L Normal 3.5-5.1 [facility] Comment on above: Order Comment: NOT F ASTING JKW Performed By: #### B MP #### [address] Sodium [Moles/Vol] 139 mmol/L Normal 136-145 [facility] Comment on above: Order Comment: NOT F ASTING JKW Performed By: #### B MP #### [address] Urea nitrogen [Mass/Vol] 17 mg/dL Normal 7-25 [facility] Comment on above: Order Comment: NOT F ASTING JKW Performed By: #### B MP #### [address] [place] 02-17-2023 Forms [id number] CD:127 Normal [facility] Patient Educationon 02-18-20 23 Patient Education Urology Benign Prostatic Hyperplasia Benign prostatic hyperplasia (BPH) is an enlarged prostate gland that is caused by the normal aging process. The prostate may get bigger as a man gets older. The condition is not caused by cancer. The prostate is a walnut-sized gland that is involved in the production of semen. It is located in front of the rectum and below the bladder. The bladder stores urine. The urethra carries stored urine out of the body. An enlarged prostate can press on the urethra. This can make it harder to pass urine. The buildup of urine in the bladder can cause infection. Back pressure and infection may progress to bladder damage and kidney (renal) failure. What are the causes? This condition is part of the normal aging process. However, not all men develop problems from this condition. If the prostate enlarges away from the urethra, urine flow will not be blocked. If it enlarges toward the urethra and compresses it, there will be problems passing urine. What increases the risk? This condition is more likely to develop in men older than 50 years. What are the signs or symptoms? Symptoms of this condition include: ? Getting up often during the night to urinate. ? Needing to urinate frequently during the day. ? Difficulty starting urine flow. ? Decrease in size and strength of your urine stream. ? Leaking (dribbling) after urinating. ? Inability to pass urine. This needs immediate treatment. ? Inability to completely empty your bladder. ? Pain when you pass urine. This is more common if there is also an infection. ? Urinary tract infection (UTI). How is this diagnosed? This condition is diagnosed based on your medical history, a physical exam, and your symptoms. Tests will also be done, such as: ? A post-void bladder scan. This measures any amount of urine that may remain in your bladder after you finish urinating. ? A digital rectal exam. In a rectal exam, your health care provider checks your prostate by putting a lubricated, gloved finger into your rectum to feel the back of your prostate gland. This exam detects the size of your gland and any abnormal lumps or growths. ? An exam of your urine (urinalysis). ? A prostate specific antigen (PSA) screening. This is a blood test used to screen for prostate cancer. ? An ultrasound. This test uses sound waves to electronically produce a picture of your prostate gland. Your health care provider may refer you to a specialist in kidney and prostate diseases (urologist). How is this treated? Once symptoms begin, your health care provider will monitor your condition (active surveillance or watchful waiting). Treatment for this condition will depend on the severity of your condition. Treatment may include: ? Observation and yearly exams. This may be the only treatment needed if your condition and symptoms are mild. ? Medicines to relieve your symptoms, including: ? Medicines to shrink the prostate. ? Medicines to relax the muscle of the prostate. ? Surgery in severe cases. Surgery may include: ? Prostatectomy. In this procedure, the prostate tissue is removed completely through an open incision or with a laparoscope or robotics. ? Transurethral resection of the prostate (TURP). In this procedure, a tool is inserted through the opening at the tip of the penis (urethra). It is used to cut away tissue of the inner core of the prostate. The pieces are removed through the same opening of the penis. This removes the blockage. ? Transurethral incision (TUIP). In this procedure, small cuts are made in the prostate. This lessens the prostate's pressure on the urethra. ? Transurethral microwave thermotherapy (TUMT). This procedure uses microwaves to create heat. The heat destroys and removes a small amount of prostate tissue. ? Transurethral needle ablation (TUNA). This procedure uses radio frequencies to destroy and remove a small amount of prostate tissue. ? Interstitial laser coagulation (ILC). This procedure uses a laser to destroy and remove a small amount of prostate tissue. ? Transurethral electrovaporization (TUVP). This procedure uses electrodes to destroy and remove a small amount of prostate tissue. ? Prostatic urethral lift. This procedure inserts an implant to push the lobes of the prostate away from the urethra. Follow these instructions at home: ? Take bdon-pnk-kjpagib and prescription medicines only as told by your health care provider. ? Monitor your symptoms for any changes. Contact your health care provider with any changes. ? Avoid drinking large amounts of liquid before going to bed or out in public. ? Avoid or reduce how much caffeine or alcohol you drink. ? Give yourself time when you urinate. ? Keep all follow-up visits. This is important. Contact a health care provider if: ? You have unexplained back pain. ? Your symptoms do not get better with treatment. ? You develop side effects from the medicine (more content not included)... Normal [facility] [place] 02-17-2023 Screens [id number] D:127 Normal [facility] Urology Office/Clinic Noteon 02-17-2023 Urology Office/Clinic Note Chief Complaint Urinary urgency HPI Staff New Pt is here today due to urinary urgency. IPSS SCORE 14. PVR today 60ml. Dysuria: denies pain and burning Incomplete bladder emptying: yes Hematuria: denies visible blood Frequency: yes Urgency: yes Nocturia: 1-2x a night Stream: denies hesitancy, strong stream Leaking: yes Post void dripping: yes Wearing pads/ Depends: denies Urge incontinence: every now and then Stress incontinence: denies Incontinence without Sensory Awareness: denies Abdominal pain: denies Flank pain: denies History of Present Illness Pt is here for Urinary Symptoms Reviewed UA, PVR and IPSS (14) Review of Systems PHQ Score Initial Depression Screen Score: 0 ROS - Provider Constitutional: denies weight loss, denies hot flashes. Eyes: denies eye problems. Gastrointestinal: denies nausea, denies vomiting. Cardiovascular: denies chest pain or angina. Integumentary: no dryness Musculoskeletal: denies musculoskeletal symptoms. ENMT: denies otolaryngeal symptoms. Respiratory: no shortness of breath. Heme/Lymph: denies easy bleeding tendency, denies easy bruising tendency. Psychiatric: no confusion, no anxiety. Genitourinary: denies dysuria, denies hematuria, denies discharge, mild urinary frequency, denies urinary hesitancy, mild nocturia, denies incontinence, denies genital sores, denies decreased libido, and denies erectile dysfunction. Physical Exam Vitals & Measurements HR: 54(Peripheral) BP: 151/93 HT: 70 in HT: 179 cm WT: 89.3 kg WT: 196.46 lb BMI: 27.87 General Appearance: alert, no distress, well nourished, well developed male. Head: normocephalic . Eyes: normal orbit and globe. ENMT: normal examination of external ears. Chest: Lungs CTA, respirations non labored. Cardiovascular: regular rate and rhythm. Abdomen: soft, non distended, no tenderness, no mass or organomegaly, no hernia. Genitourinary: normal scrotum, normal testes, normal urethra, normal epididymis, normal vas deferens/spermatic cord. Flank Pain: none. Bladder: nonpalpable. Penis: normal shaft, normal glans. Prostate: normal prostate, estimated weight 35 gms, no hard nodule observed. Lymph Nodes: unremarkable palpation of the cervical area. Skin: warm, dry, no bruising. Psychiatric: cooperative, affect appropriate for age, normal judgement, euthymic mood. Assessment/Plan 1. BPH with urinary obstruction (N40.1: Benign prostatic hyperplasia with lower urinary tract symptoms) Pt's IPSS is 14. Recent symptoms worsening. Pt's PCP (Dr. Sole Daley follows PSA) Pt is having Urgency and Frequency, which are bothersome to him The risks and benefits for cystoscopy have been discussed. The risks include bleeding, infection, and irritation of the bladder and urinary channel, among others. The patient, after being informed of procedural details and after questions have been answered, wishes to proceed. Full informed consent has been obtained. Will order Local anesthesia. Other obstructive and reflux uropathy (N13.8: Other obstructive and reflux uropathy) Overall the patient has moderate severity urinary symptomatology but it is bothersome. He does wish to proceed with a cystoscopic evaluation to see if he is a candidate for minimally invasive prostate procedural intervention. Antibiotic prophylaxis sent. JUAN RAMON demonstrates about a 35 g prostate. He denies associated UTIs or blood in the urine. He agrees with the plan Follow-up With When Contact Information BRANDEN ELIZALDE, Carlos Enrique Falk, URL Additional Instructions: Patient Education Benign Prostatic Hyperplasia I, Reina Mariscal, personally scribed for Dr. Lewis on 02/17/2023 10:54:29. . Documentation recorded by the scribe, Reina Mariscal, accurately reflects the services(s) I performed and decisions made by me. Authenticated by Dr. Lewis on 02/17/2023 10:55:40. Problem List/Past Medical History Ongoing Arthritis Atrial fibrillation BPH with urinary obstruction Colon polyps Diverticulosis Hemorrhoids History of colon polyps Hyperlipidemia Hyperthyroidism Historical AF - Atrial fibrillation Aspirin prophylaxis H/O: arthritis high cholesterol Hypercholesterolemia Rotator cuff tear shoulder problems Procedure/Surgical History Colonoscopy, flexible; with removal of tumor(s), polyp(s), or other lesion(s) by snare technique (05/31/2021), Excision of cervical lymph node, left shoulder arthroscopy, Repair of umbilical hernia. Medications aspirin, 325 mg, Oral, Daily Centrum Men's, 1 tab(s), Oral, Daily Fiber Lax, 2 grams, Oral, Daily levothyroxine, 125 mcg, Oral, Daily losartan 25 mg Tab, Oral, Daily rosuvastatin 20 mg Tab, Oral, Daily saw palmetto, 450 mg, Oral, Daily Vitamin C, See Instructions Allergies No Known Allergies Social History Alcohol - Denies Alcohol Use, 02/13/2010 Substance Abuse - Denies Substance Abuse, 02/13/2010 Tob (more content not included)... Normal [facility] Comment on above: Result Comment: Elec tronically Signed By: Carlos Enrique LEWIS MD\.br\Date and Time Signed: 02/17/23 10:56 EDT\.br\Electronically Co-Signed By: Reina Mariscal\.br\Date and Time Co-Signed: 02/17/23 10:54 EDT KYLEOVon 02-07-2023 [facility] Office Visit (CARDLO ) MONTSE MARTINEZ ([id number]) 1950 M Date Time Provider Department 02/07/23 9:00 AM LEV PRICE During your visit today, we recorded the following information about you: Pulse Blood pressure Weight 59/minute 142/80 87.1 kg Lev Price DO 02/07/2023 9:12 AM Signed [facility] [place] SE[facility] OF [facility] CARDIOLOGY OUTPATIENT VISIT DATE February 07, 2023 OUTPATIENT VISIT TYPE ESTABLISHED PRIMARY CARE PHYSICIAN: Sole Daley [address] [place] [address] [address] [place] [address] CHIEF COMPLAINT: Arrhythmia HISTORY OF PRESENT ILLNESS: Mr. Martinez is a 72 year old male with a past medical history of atrial fibrillation status post PVI, HLD, hypothyroid. I saw him previously on 11/29/22, per that note: ...he tells me that he feels well. He denies chest pain, palpitations, shortness of breath, orthopnea, LE edema, presyncope/syncope, N/V, bleeding, or other significant symptoms. Today, he tells me that he is again feeling well. He denies having any: chest pain, palpitations, shortness of breath, orthopnea, LE edema, presyncope/syncope, N/V, bleeding, or other significant symptoms. He is eating vegetables daily. He drinks 1/2 caf about 4 cups a day. He doesn't drink any alcohol. He quit smoking 30 years ago. No drugs. He attempts to walk 2-3 miles 3x a week. Family, Mother had an enlarged heart. Brother had an ID when he was 72 years of age. 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 Upon further questioning IMPRESSION: Encounter Diagnosis ICD-10-CM 1. Paroxysmal atrial fibrillation (HCC) I48.0 2. Primary hypertension I10 losartan (COZAAR) 25 mg tablet BASIC METABOLIC PNL 3. Mixed hyperlipidemia E78.2 LIPID PANEL BASIC 4. Overweight (BMI 25.0-29.9) E66.3 PLAN AND RECOMMENDATIONS: He has a remote history of PVI in 2014. No recurrence of AF since then. He was previously seen by Dr. Mike and is being managed with prophylactic aspirin presently until he has any recurrence of AF. Once he has a recurrence then will recommend further follow-up with EP however, for now he can continue with general cardiology. Goal BP less than 130/80 mmHg. Today BP is above goal. I recommend starting losartan 25mg daily. He should monitor his BP and bring BP log to next visit. I recommend checking BMP prior to next visit. Goal LDL is less than 70 mg/dL. Continue rosuvastatin 20 mg nightly. Monitor for myalgias. Check Lipid panel prior to next visit. Goal A1c is less than 7.0%. Currently overweight, recommend continuing heart healthy diet and exercising regularly. PHYSICAL EXAMINATION: BP 142/80 Pulse (!) 59 Wt 87.1 kg (192 lb) SpO2 98% BMI 28.35 kg/m? General: No apparent distress HEENT: normocephalic, EOMI, no JVD, no carotid bruit Heart: regular rhythm, no significant murmur Lungs: clear to auscultation Abdomen: bowel sounds present Extremities: no edema Musculoskeletal: chest wall nontender Neurological: alert and oriented Psychiatric: appropriate and cooperative Skin: no rash, cellulitis or lesions appreciated CARDIOVASCULAR MEDICINE TESTING: I have personally reviewed ECG and outside facility laboratory results ECG-11/29/2022 NSR 60 bpm, normal ECG Outside labs LDL 81mg/dL Last EKG Result Conclusion ECG COMPLETE Collected: 11/29/2022 8:24 AM (Final result) Impression: NORMAL SINUS RHYTHM NORMAL ECG Confirmed by MARLYN STOUT MD ([id number]) on 11/29/2022 1:42:59 PM PAST MEDICAL HISTORY Diagnosis Date Atrial fibrillation (HCC) 2009 Hypercholesterolaemia Hypothyroidism Osteoarthritis Other disorders of ear(388.8) bilat hearing aids PAST SURGICAL HISTORY Procedure Laterality Date PAST SURGICAL HISTORY OF Bilateral 2009 shoulders PAST SURGICAL HISTORY OF facial reconstruction REPAIR UMBILICAL HERNIA Social History Tobacco Use Smoking status: Former Packs/day: 1.00 Years: 25.00 Pack years: 25.00 Types: Cigarettes Quit date: 09/08/1989 Years since quittin.4 Smokeless tobacco: Never Substance Use Topics Alcohol use: No Drug use: No FAMILY HISTORY Problem Relation Age of Onset Heart Mother CAD/pacemaker Cancer Father pancreatic other (a fib [Other]) Brother ALLERGIES Allergen Reactions Propafenone Other: See Comments Not effective (pill in the pocket) Sotalol Other: See Comments Dizzeness CURRENT MEDICATIONS: Methylcellulose, Laxative, (FIBER THERAPY, M-CELLULOSE,) 500 mg tab Take by mouth q 12 HR. [place]-3 Fatty Acids 500 mg cap Take 500 mg by mouth once daily. wgvdsme-cnec-gkvvz-oreg -capryl 100 mg-150 mg- 50 mg-150 mg cap Take by mouth. cholecalciferol, vitamin D3, 350 mcg (14,000 unit) cap Take by mouth. rosuvastatin (CRESTOR) 20 mg tablet Take 1 tablet by mouth daily at bedtime. SAW PALMETTO ORAL Take by mouth twice d (more content not included)... Normal [facility] Lipid Panelon 01-28-2023 Cholesterol [Mass/Vol] 159 mg/dL Normal 140-200 [facility] Comment on above: Order Comment: PT IS FASTING Result Comment: Chol less than 200 mg/dl low risk Chol 201-239 mg/dl borderline risk Chol 240 mg/dl and greater high risk Performed By: #### L IPID #### [facility] [address] [id number] [place] Cholesterol in HDL [Mass/Vol] 51 mg/dL Normal 29-71 [facility] Comment on above: Order Comment: PT IS FASTING Result Comment: HDL CHOL ATP-III CLASSIFICATION Cardiovascular Risk HDL > or equal to 60 mg/dL LOW HDL < 40 mg/dL HIGH Performed By: #### L IPID #### [facility] [address] [place] [address] [place] Cholesterol.total/Chol esterol in HDL [Mass ratio] 3.1 {ratio} Normal <5.0 [facility] Comment on above: Order Comment: PT IS FASTING Result Comment: PERF ORMED BY: [place] [address] PATHOLOGIST CORRESPONDENCE REVIEW CLERK SU DOSS M.D. Performed By: #### L IPID #### [address] LDL Cholesterol,Calculated 83 mg/dL Normal 0-100 [facility] Comment on above: Order Comment: PT IS FASTING Result Comment: LDL ATP III CLASSIFICATION LDL less than 100 mg/dL Optimal LDL 100-129 mg/dL Near or above optimal LDL 130-159 mg/dL Borderline high LDL 160-189 mg/dL High LDL greater than 189 mg/dL Very high Performed By: #### L IPID #### [address] Triglyceride w/Reflex 127 mg/dL Normal 0-149 [facility] Comment on above: Order Comment: PT IS FASTING Result Comment: TRIG ATP III CLASSIFICATION TRIG less than 150 mg/dL Normal TRIG 150-199 mg/dL Borderline high TRIG 200-500 mg/dL High TRIG greater than 500 mg/dL Very high Standard traceable to the Center for Disease Conrtrol and Prevention (CDC) test method. Performed By: #### L IPID #### [address] VLDL CHOLESTEROL 25 mg/dL Normal [facility] Comment on above: Order Comment: PT IS FASTING Performed By: #### L IPID #### [address] CNPAsmita 01-27-2023 CNPN Telephone (4CQ) MONTSE MARTINEZ ([id number]) 1950 M Date Time Provider Department 01/27/23 LEV PRICE 4CQ During your visit today, we recorded the following information about you: Samuel Javierdows 01/27/2023 11:15 AM Signed Montse Martinez is calling Lev Price DO today asking if labs can be faxed to [facility]. Patient is unsure what the fax number is. Please call them to find out. Ph.[phone] No chief complaint on file. Patient has been identified by name and birthdate. Duration of symptoms: N/A Person calling: self Call patient at: at home [phone] (home) [phone] (cell) Was an appointment scheduled: No Closing statement: Results or non-symptom based questions: Thank you for calling [facility], your call will be returned within the next business day. Samuel Howard MA 01/27/2023 11:51 AM Signed I called [facility] for lab's fax number. I was given [phone]. I faxed over lab order and received confirmation. I also called patient and made him aware that I faxed lab order to [facility] Allergies As of Date: 01/27/2023 Noted Allergy Reaction PROPAFENONE 03/13/2015 14 - Other: See Comments Comments: Not effective (pill in the pocket) SOTALOL 03/13/2015 14 - Other: See Comments Comments: Dizzeness Date Reviewed: 11/29/2022 Reviewed by: Neli Wren MA - Fully Assessed Reason for Visit: Orders [681] Prescriptions as of 01/27/2023 - Methylcellulose, Laxative, (FIBER THERAPY, M-CELLULOSE,) 500 mg tab Take by mouth q 12 HR. - [place]-3 Fatty Acids 500 mg cap Take 500 mg by mouth once daily. - oniezxv-fcge-cyacj-oreg -capryl 100 mg-150 mg- 50 mg-150 mg cap Take by mouth. - cholecalciferol, vitamin D3, 350 mcg (14,000 unit) cap Take by mouth. - rosuvastatin (CRESTOR) 20 mg tablet Take 1 tablet by mouth daily at bedtime. - SAW PALMETTO ORAL Take by mouth twice daily. Take one tab po bid - aspirin, enteric coated (ECOTRIN) 325 mg EC tablet Take 1 tablet by mouth once daily. - levothyroxine (SYNTHROID) 25 mcg tablet Take 25 mcg by mouth once daily. - Methylcellulose, Laxative, 500 mg tab Take 1,000 mg by mouth once daily. - MULTIVITS,CA,MIN/IRON/F A/LYCOP (CENTRUM MEN ORAL) Take 1 tablet by mouth once daily. Problem List As Of Date 01/27/2023 Noted Resolved Atrial fibrillation (HCC) [I48.91] 03/13/2015 Encounter Status:Closed by NIGEL HOWARD on 01/27/23 [facility] 12-23-2022 NIKON Telephone (JENNIFER) MONTSE MARTINEZ ([id number]) 1950 Date Time Provider Department 12/23/22 LEV PRICE During your visit today, we recorded the following information about you: Elizabeth Wells RN 12/23/2022 11:03 AM Signed Pt calls For past week in am bp readings 12/12 608 am 131/78 4/7 604 am 145/90 4/8 653 am 129/85 4/9 613 am 154/95 4/10 60 7 am 131/77 4/11 7 am 135/79 Denies sob , trouble breathing, chest pirenetta Agrees to call back if s/s develop He is walking several miles a week /staying active Pt not an bp meds 8-4 appt noted ( pt on wait) Requesting sooner appt Agrees to discuss above with pcp if advised by card office-pleases call pt with office decision Nixon sanderson/isabella henderson [facility] on dial Fatemeh Harman RN 12/23/2022 11:37 AM Signed PROnoise message sent. Allergies As of Date: 12/23/2022 Noted Allergy Reaction PROPAFENONE 03/13/2015 14 - Other: See Comments Comments: Not effective (pill in the pocket) SOTALOL 03/13/2015 14 - Other: See Comments Comments: Dizzeness Date Reviewed: 11/29/2022 Reviewed by: Neli Wren MA - Fully Assessed Reason for Visit: Patient Update [1234] Prescriptions as of 12/23/2022 - Methylcellulose, Laxative, (FIBER THERAPY, M-CELLULOSE,) 500 mg tab Take by mouth q 12 HR. - [place]-3 Fatty Acids 500 mg cap Take 500 mg by mouth once daily. - dfycrev-fgka-brudc-oreg -capryl 100 mg-150 mg- 50 mg-150 mg cap Take by mouth. - cholecalciferol, vitamin D3, 350 mcg (14,000 unit) cap Take by mouth. - rosuvastatin (CRESTOR) 20 mg tablet Take 1 tablet by mouth daily at bedtime. - SAW PALMETTO ORAL Take by mouth twice daily. Take one tab po bid - aspirin, enteric coated (ECOTRIN) 325 mg EC tablet Take 1 tablet by mouth once daily. - levothyroxine (SYNTHROID) 25 mcg tablet Take 25 mcg by mouth once daily. - Methylcellulose, Laxative, 500 mg tab Take 1,000 mg by mouth once daily. - MULTIVITS,CA,MIN/IRON/F A/LYCOP (CENTRUM MEN ORAL) Take 1 tablet by mouth once daily. Problem List As Of Date 12/23/2022 Noted Resolved Atrial fibrillation (HCC) [I48.91] 03/13/2015 Encounter Status:Closed by FATEMEH HARMAN on 12/23/22 [facility] CNOVreji 11-29-2022 CNKRIS Office Visit (JENNIFER ) MONTSE MARTINEZ ([id number]) 1950 M Date Time Provider Department 11/29/22 8:30 AM LEV PRICE During your visit today, we recorded the following information about you: Pulse Blood pressure Weight Height 65/minute 151/93 88 kg 1.753 m Lev Price DO 11/29/2022 9:21 AM Signed [facility] [place] SECTION OF REGIONAL CARDIOLOGY OUTPATIENT VISIT DATE November 29, 2022 OUTPATIENT VISIT TYPE ESTABLISHED PRIMARY CARE PHYSICIAN: Sole Daley [address] [place] [address] CHIEF COMPLAINT: Arrhythmia HISTORY OF PRESENT ILLNESS: Mr. Martinez is a 72 year old male with a past medical history of atrial fibrillation status post PVI, HLD, hypothyroid. Today, he tells me that he feels well. He denies chest pain, palpitations, shortness of breath, orthopnea, LE edema, presyncope/syncope, N/V, bleeding, or other significant symptoms. He is eating vegetables daily. He drinks 1/2 caf about 4 cups a day. He doesn't drink any alcohol. He quit smoking 30 years ago. No drugs. He attempts to walk 2-3 miles 3x a week. He states that he walks more during the summer. Family, Mother had an enlarged heart. Brother had an ID when he was 72 years of age. 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 Upon further questioning IMPRESSION: Encounter Diagnosis ICD-10-CM 1. Paroxysmal atrial fibrillation (HCC) I48.0 ECG COMPLETE OUTSIDE VENDOR CARDIAC OUTPATIENT EXTENDED RHYTHM RECORDING (WITHOUT TELEMETRY) 2. Elevated blood pressure reading without diagnosis of hypertension R03.0 3. Mixed hyperlipidemia E78.2 rosuvastatin (CRESTOR) 20 mg tablet LIPID PANEL BASIC 4. Overweight (BMI 25.0-29.9) E66.3 PLAN AND RECOMMENDATIONS: He has a remote history of PVI in 2014. No recurrence of AF since then. He was previously seen by Dr. Mike and is being managed with prophylactic aspirin presently until he has any recurrence of AF. Once he has a recurrence then will recommend further follow-up with EP however, for now he can continue with general cardiology. Goal BP less than 130/80 mmHg. Today BP is above goal. He will monitor his BP and bring blood pressure log to next visit. He can also be monitored and treated by his PCP if needed. Goal LDL is less than 70 mg/dL. Recommend switching to rosuvastatin 20 mg nightly. Monitor for myalgias. Goal A1c is less than 7.0%. Currently overweight, recommend continuing heart healthy diet and exercising regularly. PHYSICAL EXAMINATION: BP 151/93 Pulse 65 Ht 175.3 cm (5' 9 ) Wt 88 kg (194 lb) SpO2 98% BMI 28.65 kg/m? General: No apparent distress HEENT: normocephalic, EOMI, no JVD, no carotid bruit Heart: regular rhythm, no significant murmur Lungs: clear to auscultation Abdomen: bowel sounds present Extremities: no edema Musculoskeletal: chest wall nontender Neurological: alert and oriented Psychiatric: appropriate and cooperative Skin: no rash, cellulitis or lesions appreciated CARDIOVASCULAR MEDICINE TESTING: I have personally reviewed ECG and outside facility laboratory results ECG-11/29/2022 NSR 60 bpm, normal ECG Last EKG Result Conclusion ECG COMPLETE Collected: 11/29/2022 8:24 AM (Preliminary result) Impression: NORMAL SINUS RHYTHM NORMAL ECG PAST MEDICAL HISTORY Diagnosis Date Atrial fibrillation (HCC) 2008 Hypercholesterolaemia Hypothyroidism Osteoarthritis Other disorders of ear(388.8) bilat hearing aids PAST SURGICAL HISTORY Procedure Laterality Date PAST SURGICAL HISTORY OF Bilateral 2009 shoulders PAST SURGICAL HISTORY OF facial reconstruction REPAIR UMBILICAL HERNIA Social History Tobacco Use Smoking status: Former Packs/day: 1.00 Years: 25.00 Pack years: 25.00 Types: Cigarettes Quit date: 09/08/1989 Years since quittin.2 Smokeless tobacco: Never Substance Use Topics Alcohol use: No Drug use: No FAMILY HISTORY Problem Relation Age of Onset Heart Mother CAD/pacemaker Cancer Father pancreatic other (a fib [Other]) Brother ALLERGIES Allergen Reactions Propafenone Other: See Comments Not effective (pill in the pocket) Sotalol Other: See Comments Dizzeness CURRENT MEDICATIONS: SAW PALMETTO ORAL Take by mouth twice daily. Take one tab po bid aspirin, enteric coated (ECOTRIN) 325 mg EC tablet Take 1 tablet by mouth once daily. (Patient taking differently: Take 81 mg by mouth once daily.) levothyroxine (SYNTHROID) 25 mcg tablet Take 25 mcg by mouth once daily. Methylcellulose, Laxative, 500 mg tab Take 1,000 mg by mouth once daily. MULTIVITS,CA,MIN/IRON/F A/LYCOP (CENTRUM MEN ORAL) Take 1 tablet by mouth once daily. Methylcellulose, Laxative, (FIBER THERAPY, M-CELLULOSE,) 500 mg tab Take by mouth q 12 HR. [place]-3 Fatty Acids 500 mg cap Take 500 mg by alcon (more content not included)... Normal [facility] ECG COMPLETEon 11-29-2022 ECG COMPLETE Ventricular Rate : 6 0 BPM Atrial Rate : 60 BPM P-R Interval : 188 ms QRS Duration : 104 ms Q-T Interval : 402 ms QTC Calculation(Bazett) : 402 ms Calculated P Tasley : 71 degrees Calculated R Tasley : 59 degrees Calculated T Tasley : 45 degrees NORMAL SINUS RHYTHM NORMAL ECG Confirmed by MARLYN STOUT MD ([id number]) on 11/29/2022 1:42:59 PM NAME : MONTSE MARTINEZ PID : [id number] : 1950 Gender : Male Race : ORD : [id number] Procedure Date : Nov 29 2022 08:24:42 Edit Date : Nov 29 2022 13:43:00 Diagnosis: NORMAL SINUS RHYTHM NORMAL ECG Confirmed by MARLYN STOUT MD ([id number]) on 11/29/2022 1:42:59 PM Test Reason : Location : 145 : [place]ARD Overread By : MARLYN STOUT MD Edited By : MARLYN STOUT MD Referred By : LEV PRICE Acquired by : , Normal [facility] Basophils Auto (Bld) [#/Vol] Ordered By: Sole Daley on 07-20-2022 Basophils (Bld) [#/Vol] 0.0 10*3/uL 0.0-0.2 [facility] Basophils/100 WBC Auto (Bld) Ordered By: Sole Daley on 07-20-2022 Basophils/100 WBC (Bld) 0.6 % . [facility] Body fluid albumin measureme nt (mass/volume)Ordered By: Sole Daley on 07-20-2022 Albumin (Body fld) [Mass/Vol] 3.8 g/dL 3.2-5.5 [facility] Cholesterol [Mass/volume] in Serum or PlasmaOrdered By: Sole Daley on 07-20-2022 Cholesterol [Mass/Vol] 179 mg/dL 140-200 [facility] Comment on above: Chol less than 200 m g/dl low riskChol 201-239 mg/dl borderline riskChol 240 mg/dl and greater high risk Cholesterol in LDL Calc [Mas s/Vol]Ordered By: Sole Daley on 07-20-2022 Cholesterol in LDL [Mass/Vol] 112 mg/dL 0-100 [facility] Comment on above: LDL ATP III CLASSIFI CATIONLDL less than 100 mg/dL OptimalLDL 100-129 mg/dL Near or above optimalLDL 130-159 mg/dL Borderline highLDL 160-189 mg/dL HighLDL greater than 189 mg/dL Very high Cholesterol in VLDL Calc [Ma ss/Vol]Ordered By: Sole Daley on 07-20-2022 Cholesterol in VLDL [Mass/Vol] 17 mg/dL [facility] Creatinine and Glomerular fi ltration rate.predicted panel (S/P/Bld)Ordered By: Sole Daley on 07-20-2022 Creatinine [Mass/Vol] 0.92 mg/dL 0.64-1.27 [facility] Eosinophils Auto (Bld) [#/Vo l]Ordered By: Sole Daley on 07-20-2022 Eosinophils (Bld) [#/Vol] 0.3 10*3/uL 0.0-0.45 [facility] Eosinophils/100 WBC Auto (Bl d)Ordered By: Sole Daley on 07-20-2022 Eosinophils/100 WBC (Bld) 5.7 % . [facility] Erythrocyte distribution wid th Auto (RBC) [Ratio]Ordered By: Sole Daley on 07-20-2022 Erythrocyte distribution width (RBC) [Ratio] 13.6 % 12.0-14.8 [facility] Estimated glomerular filtrat ion rate (GFR) non- AmericanOrdered By: Sole Daley on 07-20-2022 GFR/1.73 sq M.predicted among non-blacks MDRD (S/P/Bld) [Vol rate/Area] > 60 mL/Min [facility] Globulin Calc (S) [Mass/Vol] Ordered By: Sole Daley on 07-20-2022 Globulin (S) [Mass/Vol] 2.6 g/dL [facility] Glucose mean value [Mass/vol ume] in Blood Estimated from glycated hemoglobinOrdered By: Sole Daley on 07-20-2022 Average glucose Estimated from glycated hemoglobin (Bld) [Mass/Vol] 131 mg/dL [facility] Hematocrit Auto (Bld) [Volum e fraction]Ordered By: Sole Daley on 07-20-2022 Hematocrit (Bld) [Volume fraction] 43.2 % 38.8-50.0 [facility] Hemoglobin A1c percentageOrd ered By: Sole Daley on 07-20-2022 HbA1c (Bld) [Mass fraction] 6.2 % 4.3-5.6 [facility] Comment on above: Increased risk for d iabetes: 5.7 - 6.4diabetes: >6.4glycemic control for adults with diabetes: <7.0 Hemoglobin [Mass/volume] in BloodOrdered By: Sole Daley on 07-20-2022 Hemoglobin (Bld) [Mass/Vol] 14.6 g/dL 13.0-17.0 [facility] Laboratory - Hematology and Cell countsOrdered By: Sole Daley on 07-20-2022 Nucleated RBC/100 WBC (Bld) [Ratio] 0.0 % 0-0.5 [facility] Leukocytes [#/volume] in Blo od by Automated countOrdered By: Sole Daley on 07-20-2022 WBC (Bld) [#/Vol] 5.9 10*3/uL 4.5-11.0 [facility] Lymphocytes Auto (Bld) [#/Vo l]Ordered By: Sole Daley on 07-20-2022 Lymphocytes (Bld) [#/Vol] 1.7 10*3/uL 1.00-4.8 [facility] Lymphocytes/100 WBC Auto (Bl d)Ordered By: Sole Daley on 07-20-2022 Lymphocytes/100 WBC (Bld) 28.1 % . [facility] MCH Auto (RBC) [Entitic mass ]Ordered By: Sole Daley on 07-20-2022 MCH (RBC) [Entitic mass] 30.0 pg 27.5-35.2 [facility] MCHC Auto (RBC) [Mass/Vol]Or dered By: Sole Daley on 07-20-2022 MCHC (RBC) [Mass/Vol] 33.9 g/dL 32.5-35.6 [facility] MCV Auto (RBC) [Entitic vol] Ordered By: Sole Daley on 07-20-2022 MCV (RBC) [Entitic vol] 88.3 fL 83.5-101 [facility] Monocytes Auto (Bld) [#/Vol] Ordered By: Sole Daley on 07-20-2022 Monocytes (Bld) [#/Vol] 0.6 10*3/uL 0.0-0.8 [facility] Monocytes/100 WBC Auto (Bld) Ordered By: Sole Daley on 07-20-2022 Monocytes/100 WBC (Bld) 10.4 % . [facility] Neutrophils Auto (Bld) [#/Vo l]Ordered By: Sole Daley on 07-20-2022 Neutrophils (Bld) [#/Vol] 3.3 10*3/uL 1.8-7.7 [facility] Neutrophils/100 WBC Auto (Bl d)Ordered By: Sole Daley on 07-20-2022 Neutrophils/100 WBC (Bld) 55.2 % . [facility] No Panel InformationOrdered By: Sole Daley on 07-20-2022 Estimated GFR () > 60 mL/Min [facility] Comment on above: GFR estimated refere nce range: According to KDOQI guidelines, <60 ml/min/1.73m2 is sufficient to diagnose a patient with chronic kidney disease. Pharmacy Creatinine Clearance (Chem N/A [facility] Prostate Specific Antigen Screen 3.470 ng/mL 0.000-4.000 [facility] Platelet mean volume Auto (B ld) [Entitic vol]Ordered By: Sole Daley on 07-20-2022 Platelet mean volume (Bld) [Entitic vol] 9.0 fL 6.6-10.1 [facility] Platelets Auto (Bld) [#/Vol] Ordered By: Sole Daley on 07-20-2022 Platelets (Bld) [#/Vol] 224 10*3/uL 150-450 [facility] Protein [Mass/volume] in Ser um or PlasmaOrdered By: Sole Daley on 07-20-2022 Protein [Mass/Vol] 6.4 g/dL 6.1-7.9 [facility] RBC Auto (Bld) [#/Vol]Ordere d By: Sole Daley on 07-20-2022 RBC (Bld) [#/Vol] 4.89 10*6/uL 3.90-5.60 [facility] Serum or plasma alanine bullock otransferase measurement without P-5'-P (enzymatic activiOrdered By: Sole Daley on 07-20-2022 ALT No additional P-5'-P [Catalytic activity/Vol] 20 U/L 10-60 [facility] Serum or plasma albumin/glob ulin mass ratioOrdered By: Sole Daley on 07-20-2022 Albumin/Globulin [Mass ratio] 1.5 {ratio} [facility] Serum or plasma alkaline gaurav sphatase measurement (enzymatic activity/volume)Ordered By: Sole Daley on 07-20-2022 ALP [Catalytic activity/Vol] 71 U/L 32-92 [facility] Serum or plasma anion gap de terminationOrdered By: Sole Daley on 07-20-2022 Anion gap [Moles/Vol] 10.8 mmol/L 6.0-15.0 [facility] Serum or plasma aspartate am inotransferase measurement (enzymatic activity/volume)Ordered By: Sole Daley on 07-20-2022 AST [Catalytic activity/Vol] 21 U/L 10-42 [facility] Serum or plasma calcium yumiko urement (mass/volume)Ordered By: Sole Daley on 07-20-2022 Calcium [Mass/Vol] 9.2 mg/dL 8.2-10.2 [facility] Serum or plasma chloride sarah surement (moles/volume)Ordered By: Sole Daley on 07-20-2022 Chloride [Moles/Vol] 104 mmol/L 95-114 [facility] Serum or plasma glucose yumiko urement (mass/volume)Ordered By: Sole Daley on 07-20-2022 Glucose [Mass/Vol] 107 mg/dL 70-100 [facility] Comment on above: ADA recommended refe rence rangeRandom Glucose Reference Range is dependent on time and content of last meal. Glucose of more than 200 mg/dL in a nonstressed, ambulatory subject supports the diagnosis of Diabetes Mellitus. Serum or plasma high density lipoprotein (HDL) cholesterol measurementOrdered By: Sole Daley on 07-20-2022 Cholesterol in HDL [Mass/Vol] 50 mg/dL 29-71 [facility] Comment on above: HDL CHOL ATP-III CLA SSIFICATION Cardiovascular RiskHDL > or equal to 60 mg/dL LOWHDL < 40 mg/dL HIGH Serum or plasma potassium me asurement (moles/volume)Ordered By: Sole Daley on 07-20-2022 Potassium [Moles/Vol] 4.4 mmol/L 3.5-5.1 [facility] Serum or plasma sodium measu rement (moles/volume)Ordered By: Sole Daley on 07-20-2022 Sodium [Moles/Vol] 140 mmol/L 136-146 [facility] Serum or plasma total biliru bin measurement (mass/volume)Ordered By: Sole Daley on 07-20-2022 Bilirubin [Mass/Vol] 0.9 mg/dL 0.3-1.2 [facility] Serum or plasma total carbon dioxide measurement (moles/volume)Ordered By: Sole Daley on 07-20-2022 CO2 [Moles/Vol] 29.6 mmol/L 22.0-30.0 [facility] Serum or plasma total choles terol/high density lipoprotein (HDL) cholesterol mass ratOrdered By: Sole Daley on 07-20-2022 Cholesterol.total/Chol esterol in HDL [Mass ratio] 3.6 {ratio} <5.0 [facility] Serum or plasma urea nitroge n measurement (mass/volume)Ordered By: Sole Daley on 07-20-2022 Urea nitrogen [Mass/Vol] 10 mg/dL 9-23 [facility] Triglyceride [Mass/volume] i n Serum or PlasmaOrdered By: Sole Daley on 07-20-2022 Triglyceride [Mass/Vol] 85 mg/dL 35-149 [facility] Comment on above: TRIG ATP III CLASSIF ICATIONTRIG less than 150 mg/dL NormalTRIG 150-199 mg/dL Borderline highTRIG 200-500 mg/dL High TRIG greater than 500 mg/dL Very highStandard traceable to the Center for Disease Conrtrol and Prevention (CDC) test method. ECG COMPLETEon 05-08-2022 Atrial Rate 56 BPM [facility] Calculated R Tasley 60 degrees [facility] Calculated T Tasley 45 degrees [facility] QRS Duration 96 ms [facility] QT Interval 424 ms [facility] QTC Calculation (Bazett) 409 ms [facility] Ventricular Rate [address] [facility] SARS-CoV-2 (COVID-19) RNA NA A+probe Ql (Resp)on 04-08-2022 SARS-CoV-2 (COVID-19) RNA EMPERATRIZ+probe Ql (Unsp spec) Positive [employer] Other Vital Signs Date Time Vital Sign Value Performing Clinician Facility 09-16-2023 06:20-0500 Diastolic blood pressure 92 mm[Hg] Kaylinn Dokken [facility] 09-16-2023 06:20-0500 Heart rate 68 /min [facility] 09-16-2023 06:20-0500 Mean blood pressure 109 mm[Hg] Kaylinn Dokken [facility] 09-16-2023 06:20-0500 Respiratory rate 18 /min Kaylinn Dokken [facility] 09-16-2023 06:20-0500 SaO2% (BldA) [Mass fraction] 98 % Kaylinn Dokken [facility] 09-16-2023 06:20-0500 Systolic blood pressure 143 mm[Hg] Kaylinn Dokken [facility] 09-16-2023 05:55-0500 Diastolic blood pressure 91 mm[Hg] Kaylinn Dokken [facility] 09-16-2023 05:55-0500 Heart rate 57 /min Kaylinn Dokken [facility] 09-16-2023 05:55-0500 Mean blood pressure 108 mm[Hg] Kaylinn Dokken [facility] 09-16-2023 05:55-0500 Respiratory rate 16 /min Kaylinn Dokken [facility] 09-16-2023 05:55-0500 SaO2% (BldA) [Mass fraction] 98 % Kaylinn Dokken [facility] 09-16-2023 05:55-0500 Systolic blood pressure 143 mm[Hg] Kaylinn Dokken [facility] 09-16-2023 05:21-0500 Diastolic blood pressure 93 mm[Hg] Kaylinn Dokken [facility] 09-16-2023 05:21-0500 Heart rate 62 /min Kaylinn Dokken [facility] 09-16-2023 05:21-0500 Mean blood pressure 112 mm[Hg] Kaylinn Dokken [facility] 09-16-2023 05:21-0500 Respiratory rate 18 /min Kaylinn Dokken [facility] 09-16-2023 05:21-0500 SaO2% (BldA) [Mass fraction] 97 % Kaylinn Dokken [facility] 09-16-2023 05:21-0500 Systolic blood pressure 151 mm[Hg] Kaylinn Dokken [facility] 09-16-2023 03:51-0500 Body temperature 97.52 [degF] Skylar Wright [facility] 09-16-2023 03:51-0500 Heart rate 66 /min Skylar Wright [facility] 07-23-2023 14:30-0500 Body height 172.72 cm Sole Edi Other [employer] Other 07-23-2023 14:30-0500 Body mass index (BMI) [Ratio] 28.43 kg/m2 Sole Edi Other [employer] Other 07-23-2023 14:30-0500 Body temperature 98.4 [degF] Sole Edi Other [employer] Other 07-23-2023 14:30-0500 Body weight 84.82 kg Sole Edi Other [employer] Other 07-23-2023 14:30-0500 Diastolic blood pressure 74 mm[Hg] Sole Edi Other [employer] Other 07-23-2023 14:30-0500 Respiratory rate 20 /min Sole Edi Other [employer] Other 07-23-2023 14:30-0500 SaO2% (BldA) [Mass fraction] 97 % Sole Edi Other [employer] Other 07-23-2023 14:30-0500 Systolic blood pressure 102 mm[Hg] Sole Edi Other [employer] Other 06-10-2023 09:57-0400 Blood Pressure Location Carlos Enrique COOK [facility] 06-10-2023 09:57-0400 Body temperature 97.88 [degF] Carlos Enrique COOK [facility] 06-10-2023 09:57-0400 Diastolic blood pressure 82 mm[Hg] Carlos Enrique COOK [facility] 06-10-2023 09:57-0400 Heart rate 78 /min Carlos Enrique COOK [facility] 06-10-2023 09:57-0400 Systolic blood pressure 124 mm[Hg] Carlos Enrique COOK [facility] 04-07-2023 10:21-0400 Blood Pressure Location Carlos Enrique COOK [facility] 04-07-2023 10:21-0400 Diastolic blood pressure 86 mm[Hg] Carlos Enrique COOK [facility] 04-07-2023 10:21-0400 Heart rate 61 /min Carlos Enrique COOK [facility] 04-07-2023 10:21-0400 Systolic blood pressure 128 mm[Hg] Carlos Enrique COOK [facility] 03-04-2023 07:40-0400 Blood Pressure Location Carlos Enrique COOK [facility] 03-04-2023 07:40-0400 Diastolic blood pressure 84 mm[Hg] Carlos Enrique COOK [facility] 06-27-2023 07:40-0400 Heart rate 91 /min Carlos Enrique [employer] [facility] 03-04-2023 07:40-0400 Respiratory rate 16 /min Carlos Enrique [employer] [facility] 03-04-2023 07:40-0400 Systolic blood pressure 136 mm[Hg] Carlos Enrique COOK [facility] 02-17-2023 09:50-0400 Blood Pressure Location Carlos Enrique [employer] [facility] 02-17-2023 09:50-0400 Diastolic blood pressure 93 mm[Hg] Carlos Enrique [employer] [facility] 02-17-2023 09:50-0400 Heart rate 54 /min Carlos Enrique [employer] [facility] 02-17-2023 09:50-0400 Systolic blood pressure 151 mm[Hg] Carlos Enrique [employer] [facility] 02-07-2023 08:42-0400 Body weight 87.09 kg Lev Price DO Work Phone: [facility] 02-07-2023 08:42-0400 Diastolic blood pressure 80 mm[Hg] Lev Dee DO Work Phone: [facility] 02-07-2023 08:42-0400 Heart rate 59 /min Lev Dee DO Work Phone: [facility] 02-07-2023 08:42-0400 SaO2% (BldA) [Mass fraction] 98 % Lev Dee DO Work Phone: [facility] 02-07-2023 08:42-0400 Systolic blood pressure 142 mm[Hg] Lev Price DO Work Phone: [facility] 11-29-2022 08:31-0400 Diastolic blood pressure 93 mm[Hg] Lev Price DO Work Phone: [facility] 11-29-2022 08:31-0400 Systolic blood pressure 151 mm[Hg] Lev Price DO Work Phone: [facility] 11-29-2022 08:22-0400 Body height 175.3 cm Lev Price DO Work Phone: [facility] 11-29-2022 08:22-0400 Body weight 88 kg Lev Price DO Work Phone: [facility] 11-29-2022 08:22-0400 Heart rate 65 /min Lev Price DO Work Phone: [facility] 11-29-2022 08:22-0400 SaO2% (BldA) [Mass fraction] 98 % Lev Price DO Work Phone: [facility] 07-18-2022 15:45-0500 Body height 172.72 cm Sole Edi Other [employer] Other 07-18-2022 15:45-0500 Body mass index (BMI) [Ratio] 29.65 kg/m2 Sole Edi Other [employer] Other 07-18-2022 15:45-0500 Body temperature 98 [degF] Sole Edi Other [employer] Other 07-18-2022 15:45-0500 Body weight 88.45 kg Sole Edi Other [employer] Other 07-18-2022 15:45-0500 Diastolic blood pressure 80 mm[Hg] Sole Edi Other [employer] Other 07-18-2022 15:45-0500 Respiratory rate 20 /min Sole Edi Other [employer] Other 07-18-2022 15:45-0500 SaO2% (BldA) [Mass fraction] 98 % Sole Edi Other [employer] Other 07-18-2022 15:45-0500 Systolic blood pressure 112 mm[Hg] Sole Edi Other [employer] Other 05-07-2022 10:50-0400 Body height 175.3 cm Nabila Valenzuela MD Work Phone: [facility] 05-07-2022 10:50-0400 Body weight 87.09 kg Nabila Valenzuela MD Work Phone: [facility] 05-07-2022 10:50-0400 Diastolic blood pressure 88 mm[Hg] Nabila Valenzuela MD Work Phone: [facility] 05-07-2022 10:50-0400 Heart rate 51 /min Nabila Valenzuela MD Work Phone: [facility] 05-07-2022 10:50-0400 Systolic blood pressure 134 mm[Hg] Nabila Valenzuela MD Work Phone: [facility] 04-08-2022 14:50-0400 Body height 172.72 cm Jeanette Longo Other [employer] Other 04-08-2022 14:50-0400 Body mass index (BMI) [Ratio] 28.43 kg/m2 Jeanette Longo Other [employer] Other 04-08-2022 14:50-0400 Body temperature 98.2 [degF] Jeanette Longo Other [employer] Other 04-08-2022 14:50-0400 Body weight 84.82 kg Jeanette Longo Other [employer] Other 04-08-2022 14:50-0400 Respiratory rate 20 /min Jeanette Longo Other [employer] Other 04-08-2022 14:50-0400 SaO2% (BldA) [Mass fraction] 96 % Jeanette Longo Other [employer] Other 03-13-2022 15:45-0400 Body height 172.72 cm [employer] Other [employer] Other 03-13-2022 15:45-0400 Body mass index (BMI) [Ratio] 29.49 kg/m2 [employer] Other [employer] Other 03-13-2022 15:45-0400 Body temperature 98.4 [degF] [employer] Other [employer] Other 03-13-2022 15:45-0400 Body weight 88 kg [employer] Other [employer] Other 03-13-2022 15:45-0400 Diastolic blood pressure 98 mm[Hg] [employer] Other [employer] Other 03-13-2022 15:45-0400 Respiratory rate 20 /min [employer] Other [employer] Other 03-13-2022 15:45-0400 SaO2% (BldA) [Mass fraction] 97 % [employer] Other [employer] Other 03-13-2022 15:45-0400 Systolic blood pressure 144 mm[Hg] [employer] Other [employer] Other 06-04-2021 12:15-0400 Body height 172.72 cm Sole Edi Other [employer] Other 06-04-2021 12:15-0400 Body mass index (BMI) [Ratio] 29.65 kg/m2 Sole Edi Other [employer] Other 06-04-2021 12:15-0400 Body temperature 97.9 [degF] Sole Edi Other [employer] Other 06-04-2021 12:15-0400 Body weight 88.45 kg Sole Edi Other [employer] Other 06-04-2021 12:15-0400 Diastolic blood pressure 82 mm[Hg] Sole Edi Other [employer] Other 06-04-2021 12:15-0400 Respiratory rate 20 /min Sole Edi Other [employer] Other 06-04-2021 12:15-0400 SaO2% (BldA) [Mass fraction] 98 % Sole Edi Other [employer] Other 06-04-2021 12:15-0400 Systolic blood pressure 130 mm[Hg] Sole Edi Other [employer] Other Encounters Encounter Date Encounter Type Care Provider Facility Start: 11-26-2023 ambulatory Isreal Ramirez ty:MARY Hennessyy Start: 09-18-2023 ambulatory Isreal DAHL James ty:[id number] Start: 09-16-2023 End: 09-16-2023 Emergency department patient visit Skylar [place] [place]: 09-16-2023 End: 09-16-2023 Emergency department patient visit Skylar Wright [facility] Start: 08-14-2023 End: 08-14-2023 ambulatory SOLE BAHENA EDI Facility:[facility] Start: 08-11-2023 End: 08-11-2023 ambulatory Sole M. Edi Facility:[facility] Start: 08-11-2023 End: 08-11-2023 ambulatory DO Sole M. Edi Work Phone: [facility] Work Phone: Start: 08-11-2023 End: 08-11-2023 Patient encounter procedure DO Sole Edi Work Phone: [facility] [place] Work Phone: Start: 08-07-2023 End: 08-08-2023 ambulatory Isreal DAHL Facility:[id number] Start: 07-23-2023 End: 07-23-2023 ambulatory Sole Edi Other [employer] Other Start: 07-23-2023 Patient encounter procedure Sole Edi [facility] Start: 06-24-2023 End: 06-24-2023 ambulatory Sole M. Edi Facility:[facility] Start: 06-24-2023 End: 06-24-2023 ambulatory DO Sole M. Edi Work Phone: [facility] Work Phone: Start: 06-24-2023 End: 06-24-2023 Patient encounter procedure DO Sole Edi Work Phone: [facility] Work Phone: Start: 06-18-2023 End: 06-19-2023 ambulatory Isreal DAHL Facility:[facility] Start: 06-17-2023 End: 06-17-2023 ambulatory Sole Daley Facility:[facility] Start: 06-17-2023 End: 06-17-2023 ambulatory DO Sole Sosagles Work Phone: [facility] Work Phone: Start: 06-17-2023 End: 06-17-2023 Patient encounter procedure DO Sole Daley Work Phone: [facility] Work Phone: Start: 06-14-2023 End: 06-14-2023 Emergency department patient visit Justin Echeverria [place] Start: 06-10-2023 End: 06-11-2023 ambulatory Carlos Enrique LEWIS Facility: [place] Start: 06-10-2023 End: 06-10-2023 Patient encounter procedure Carlos Enrique LEWIS [facility] [place] Start: 04-07-2023 End: 04-08-2023 ambulatory Carlos Enrique LEWIS Facility:[facility] [place] Start: 04-07-2023 End: 04-07-2023 Patient encounter procedure Carlos Enrique LEWIS [facility] [place] Start: 03-31-2023 End: 04-01-2023 ambulatory Carlos Enrique LEWIS Facility:[facility] [place] Start: 03-24-2023 End: 03-25-2023 ambulatory Carlos Enrique LEWIS [place] Start: 03-24-2023 End: 03-24-2023 Patient encounter procedure Carlos Enrique LEWIS [facility] Start: 03-17-2023 ambulatory Carlos Enrique LEWIS Facility:[facility] Start: 03-04-2023 End: 03-05-2023 ambulatory Carlos Enrique LEWIS Facility:[facility] Start: 03-04-2023 End: 03-04-2023 Patient encounter procedure Carlos Enrique LEWIS [facility] [place] Start: 02-25-2023 End: 02-25-2023 ambulatory Lev Price Facility:[facility] Start: 02-17-2023 End: 02-18-2023 ambulatory Carlos Enrique LEWIS Facility:[facility] Start: 02-17-2023 End: 02-17-2023 Patient encounter procedure Carlos Enrique LEWIS [facility] [place] Start: 02-07-2023 End: 02-07-2023 ambulatory LEV DEE Facility:[facility] Start: 02-07-2023 End: 02-07-2023 Patient encounter procedure Levkendell Price DO Work Phone: Cardiology Comment on above: Paroxysmal atrial fi brillation (HCC) (Primary Dx); Primary hypertension; Mixed hyperlipidemia; Overweight (BMI 25.0-29.9) Start: 01-28-2023 End: 01-28-2023 ambulatory Lev Eduardo Price Facility:[facility] Start: 01-13-2023 End: 01-13-2023 ambulatory Sole Daley Other [employer] Other Start: 01-13-2023 Telephone encounter Sole Daley [facility] Start: 12-23-2022 Telephone encounter Lev barton DO Work Phone: Cardiology Comment on above: Patient Update Start: 11-29-2022 End: 11-29-2022 ambulatory NABILA VALENZUELA Facility:[facility] Start: 11-29-2022 End: 11-29-2022 Patient encounter procedure Lev rPice DO Work Phone: Cardiology Comment on above: Paroxysmal atrial fi brillation (HCC) (Primary Dx); Elevated blood pressure reading without diagnosis of hypertension; Mixed hyperlipidemia; Overweight (BMI 25.0-29.9) Start: 07-20-2022 End: 07-20-2022 ambulatory DO Sole Sosagles Work Phone: [facility] Work Phone: Start: 07-20-2022 End: 07-20-2022 Patient encounter procedure DO Sole Edi Work Phone: [facility] [place] Start: 07-18-2022 End: 07-18-2022 ambulatory Sole Edi Other [employer] Other Start: 07-18-2022 Patient encounter procedure Sole Edi [facility] Start: 07-15-2022 End: 07-15-2022 ambulatory Sole Edi Other [employer] Other Start: 07-15-2022 Telephone encounter Sole Edi [facility] Start: 07-08-2022 End: 07-08-2022 ambulatory Sole Edi Other [employer] Other Start: 07-08-2022 Telephone encounter Sole Edi [facility] Start: 05-07-2022 End: 05-14-2022 Patient encounter procedure Nabila Valenzuela MD Work Phone: Cardiology Comment on above: PAF (paroxysmal atri al fibrillation) (HCC) (Primary Dx) Start: 04-08-2022 End: 04-08-2022 ambulatory Jeanette Longo Other [employer] Other Start: 04-08-2022 Office outpatient vi sit 15 minutes Jeanette Longo [facility] Start: 04-04-2022 End: 04-04-2022 ambulatory Sole Edi Other [employer] Other Start: 04-04-2022 Telephone encounter Sole Edi [facility] Start: 03-20-2022 End: 03-20-2022 ambulatory Sole Edi Other [employer] Other Start: 03-20-2022 Telephone encounter Sole Edi [facility] Start: 03-13-2022 End: 03-13-2022 ambulatory Sole Edi Other [employer] Other Start: 03-13-2022 Office outpatient vi sit 15 minutes Fatemeh Link [facility] Start: 03-13-2022 Telephone encounter Sole Edi [facility] Start: 03-12-2022 End: 03-12-2022 ambulatory Sole Edi Other [employer] Other Start: 03-12-2022 Telephone encounter Sole Edi [facility] Start: 01-21-2022 End: 01-21-2022 ambulatory Sole Edi Other [employer] Other Start: 01-21-2022 Telephone encounter Sole Edi [facility] Start: 12-31-2021 End: 12-31-2021 ambulatory Sole Edi Other [employer] Other Start: 12-31-2021 Telephone encounter Sole Edi [facility] Start: 10-19-2021 ambulatory Madonna mae MD Work Phone: [facility] Start: 10-19-2021 Patient encounter procedure Madonna Smith MD Work Phone: Cardiology Comment on above: Virtual appointments Start: 07-23-2021 End: 07-23-2021 ambulatory Sole Edi Other [employer] Other Start: 07-23-2021 Telephone encounter Sole Edi [facility] Start: 07-02-2021 Telephone encounter Sole Edi [facility] Start: 06-04-2021 Office outpatient vi sit 25 minutes Sole Edi [facility] Start: 06-04-2021 Telephone encounter Sole Edi [facility] Procedures Date Procedure Procedure Detail Performing Clinician Start: 06-24-2023 Intravenous pyelogram D O Sole Edi Work Phone: Start: 06-17-2023 Diagnostic radiograp hy of abdomen DO Sole Edi Work Phone: Start: 03-24-2023 Transurethral insert ion of prostatic urethral lift implant Carlos Enrique LEWIS Start: 03-04-2023 Cystoscopy Carlos Enrique RAMIRES Start: 11-29-2022 Ecg routine ecg w/le ast 12 lds i&r only [facility] Provider Start: 05-07-2022 Ecg routine ecg w/le ast 12 lds w/i&r [facility] Provider Start: 05-31-2021 Colonoscopy Nabila Valenzuela MD Work Phone: Start: 05-31-2021 Colsc flx w/rmvl of tumor polyp lesion snare tq Carlos Enrique LEWIS Excision of cervical lymph node Carlos Enrique LEWIS left shoulder arthroscopy Gr jae LEWIS Repair of umbilical hernia G briseyda LEWIS Plan of Treatment Date Care Activity Detail Author Start: 06-12-2026 LIPID SCREEN LIPID SCREEN [facility] Start: 06-12-2024 DIABETES SCREEN DIABETES SCREEN [facility] Start: 08-09-2023 End: 10-09-2023 Lipid 1996 panel - Serum or Plasma LIPID PANEL BASIC Lab Routine Mixed hyperlipidemia Expected: 08/09/2023 (Approximate), Expires: 10/09/2023 [facility] Work Phone: Comment on above: Expected: 08/09/2023 (Approximate), Expires: 10/09/2023 Start: 02-21-2023 End: 04-23-2023 Basic metabolic 2000 panel - Serum or Plasma BASIC METABOLIC PNL Lab Routine Primary hypertension Expected: 02/21/2023 (Approximate), Expires: 04/23/2023 [facility] Work Phone: Comment on above: Expected: 02/21/2023 (Approximate), Expires: 04/23/2023 Start: 11-29-2022 End: 01-29-2023 Lipid 1996 panel - Serum or Plasma LIPID PANEL BASIC Lab Routine Mixed hyperlipidemia Expected: 11/29/2022, Expires: 01/29/2023 [facility] Work Phone: Comment on above: Expected: 11/29/2022 , Expires: 01/29/2023 Start: 09-08-2022 ADVANCE DIRECTIVE DISCUSSION ADVANCE DIRECTIVE DISCUSSION [facility] Start: 09-08-2022 DEPRESSION ASSESSMENT DEPRESSION ASS ESSMENT [facility] Start: 05-31-2022 Colonoscopy COLONOSCOPY [facility] Start: 05-31-2022 COLORECTAL CANCER SCREENING COLORECTAL CANCER SCREENING [facility] Start: 05-09-2022 Influenza vaccination INFLUENZA (#1) [facility] Start: 09-08-2021 ADVANCE DIRECTIVE DISCUSSION ADVANCE DIRECTIVE DISCUSSION [facility] Start: 05-09-2021 Influenza vaccination INFLUENZA (#1) [facility] Start: 06-02-2018 DIABETES SCREEN DIABETES SCREEN [facility] Start: 2017 PNEUMOCOCCAL: 65+ (1 - PCV) PNEUMOCOCCAL: 65+ (1 - PCV) [facility] Start: 2017 PNEUMOVAX AGE 65 AND OVER WITH 5YR LOOKBACK (#1) PNEUMOVAX AGE 65 AND OVER WITH 5YR LOOKBACK (#1) [facility] Start: 2002 SHINGRIX VACCINE (1 of 2) SHINGRIX VACCINE (1 of 2) [facility] Start: 1997 COLOGUARD (FIT-DNA) COLOGUARD (FIT-D NA) [facility] Start: 1997 Colonoscopy COLONOSCOPY [facility] Start: 1997 COLORECTAL CANCER SCREENING COLORECTAL CANCER SCREENING [facility] Start: [address] COLONOGRAPHY [facility] Start: 1997 FECAL OCCULT BLOOD FECAL OCCULT BLOO D [facility] Start: 1997 SIGMOIDOSCOPY SIGMOIDOSCOPY [facility] Start: 1987 LIPID SCREEN LIPID SCREEN [facility] Start: 1971 Urine microalbumin profile DTAP,TDAP,TD (1 - Tdap) [facility] Start: 1970 HEPATITIS C SCREENING HEPATITIS C SC REENING [facility] Start: 1964 Adult depression screening assessment DEPRESSION SCREENING [facility] Start: 1957 COVID-19 VACCINE (1) COVID-19 VACCIN E (1) [facility] Start: 1952 ABDOMINAL AORTIC ANEURYSM SCREENING ABDOMINAL AORTIC ANEURYSM SCREENING [facility] End: 11-30-2023 ECG COMPLETE ECG COMPLETE ECG Routine Paroxysmal atrial fibrillation (HCC) 1 Occurrences starting 11/29/2022 until 11/30/2023 [facility] Work Phone: Comment on above: 1 Occurrences starti ng 11/29/2022 until 11/30/2023 ECG COMPLETE ECG COMPLETE ECG 11/29/2022 8:24 AM EDT [facility] OUTSIDE VENDOR CARDI AC OUTPATIENT EXTENDED RHYTHM RECORDING (WITHOUT TELEMETRY) OUTSIDE VENDOR CARDIAC OUTPATIENT EXTENDED RHYTHM RECORDING (WITHOUT TELEMETRY) Holter Routine Paroxysmal atrial fibrillation (HCC) Ordered: 11/29/2022 [facility] Work Phone: Comment on above: Ordered: 11/29/2022 [facility] Immunizations Immunization Date Immunization Notes Care Provider Jose lake 07-23-2023 influenza, injectabl e, quadrivalent, contains preservative Sole Edi Other [employer] Other 07-18-2022 influenza, injectabl e, quadrivalent, contains preservative Sole Edi Other [employer] Other 07-18-2022 influenza virus vaccine, unspecified formulation Carlos Enrique LEWIS [facility] 05-30-2022 SARS-CoV-2 (COVID-19 ) [id number] Carlos Enrique LEWIS [facility] 01-02-2022 SARS-CoV-2 mRNA ([id number] [id number]) vaccine Carlos Enrique LEWIS [facility] 06-29-2021 Do not use COVID-19 Pfizer 2 dose Sole Edi Other [facility] 06-04-2021 influenza virus vaccine, unspecified formulation Carlos Enrique LEWIS [employer] [facility] 06-04-2021 influenza, injectabl e, quadrivalent, contains preservative Sole Edi Other [employer] Other 11-30-2020 COVID-19 Pfizer Sole Edi Other [facility] 11-09-2020 COVID-19 Pfizer Sole Edi Other [facility] 06-13-2020 influenza virus vaccine, unspecified formulation Carlos Enrique [employer] [facility] 06-13-2020 influenza, injectabl e, quadrivalent, contains preservative Sole Edi Other [employer] Other 07-05-2019 influenza, injectabl e, quadrivalent, contains preservative Sole Edi Other [employer] Other 07-05-2019 influenza virus vaccine, unspecified formulation Carlos Enrique LEWIS [facility] 05-26-2018 influenza virus vaccine, unspecified formulation Carlos Enrique LEWIS [facility] 05-26-2018 influenza, injectabl e, quadrivalent, contains preservative Sole Edi Other [employer] Other 06-24-2017 influenza, injectabl e, quadrivalent, contains preservative Sole Edi Other [employer] Other 06-24-2017 influenza virus vaccine, unspecified formulation Carlos Enrique LEWIS [facility] 05-09-2017 influenza virus vaccine, unspecified formulation Carlos Enrique LEWIS [facility] 06-20-2016 influenza virus vaccine, unspecified formulation Carlos Enrique LEWIS [facility] 06-02-2015 influenza virus vaccine, unspecified formulation Carlos Enrique LEWIS [facility] 06-02-2015 influenza, injectabl e, quadrivalent, preservative free Madonna Smith MD Work Phone: [facility] 08-20-2014 zoster vaccine, live Carlos Enrique LEWIS [facility] 02-18-2010 tetanus toxoid, reduced diphtheria toxoid, and acellular pertussis vaccine, adsorbed Carlos Enrique LEWIS [facility] Payers Date Payer Category Payer Self-pay [id number] 2023 Unknown [id number] 2021 Unknown [id number] 2021 Unknown [employer]LE[employer] [id number] 2021-Present [phone] [id number] [place] [address] Indemnity [id number]. [id number] 2017 Medicare [id number] 2017 Medicare MEDICARE MEDICAR E A AND B [id number] 2017-Present [phone] [address] [address] [place] [address] Medicare [id number]. [id number] 2014 Unknown MMO MMO TRADITIO NAL [id number] 2014-Present [phone] [address] [place] [address] Indemnity [id number]. [id number] 1952 Unknown [id number] 2.16.840.1.295949.3.579.2.727 1952 Unknown [id number] 2.16.840.1.526543.3.579.2.727 1952 Unknown [id number] 2.16.840.1.915490.3.579.2.727 1952 Unknown [id number] 2.16.840.1.293450.3.579.2.727 1952 Unknown [id number] 2.16.840.1.266922.3.579.2.72 1952 Unknown [id number] 2.16.840.1.570099.3.579.2.727 1952 Unknown [id number] 2.16.840.1.806581.3.579.2.727 1952 Unknown [id number] 2.16.840.1.503401.3.579.2.72 1952 Unknown [id number] 2.16.840.1.618137.3.579.2.727 1952 Unknown [id number] 2.16.840.1.697064.3.579.2.72 1952 Unknown [id number] 2.16.840.1.754183.3.579.2.72 Unknown [id number] 2.16.840.1.528136.19 Unknown [facility] Health Claims [id number] Unknown [id number] 2.16.840.1.465513.3.579.2.531 Unknown [id number] 2.16.840.1.727087.3.579.2.531 Unknown [id number] 2.16.840.1.843197.3.579.2.531 Unknown [id number] 2.16.840.1.238429.3.579.2.531 Unknown [id number] 2.16840.1.200998.3.579.2.531 Social History Date Type Detail Facility Start: 03-13-2015 End: 02-17-2023 Tobacco smoking status NHIS Ex-smoker [facility] End: 09-08-1989 History of tobacco use Current smoker [facility] End: 09-08-1989 History of tobacco use Cigarette Smoker [facility] Start: 03-13-2015 End: 05-07-2022 Cigarettes smoked current (pack per day) - Reported 1 [facility] Start: 03-13-2015 End: 05-07-2022 Tobacco use and exposure Smokeless tobacco non-user [facility] Start: 04-06-2015 End: 02-07-2023 Alcohol intake Current non-drinker of alcohol (finding) [facility] Start: 1950 Sex Assigned At Not on file [facility] Sex Assigned At [facility] Start: 1950 Sex Assigned At Male F [facility] Start: 06-10-2023 End: 06-18-2023 Tobacco smoking status Never [facility] Functional Status Date Assessment Result Facility 09-16-2023 Functional Status N/A [facility] 06-10-2023 Functional Status N/A [facility] 04-07-2023 Functional Status N/A [facility] 03-24-2023 Functional Status N/A [facility] 03-04-2023 Functional Status N/A [facility] 02-17-2023 Functional Status N/A [facility] Clinical Notes 06-04-2021 to 09-16-2023 Note Date & Type Note Facility 09-16-2023 Evaluation + Plan note Extrac harpreet from: Title:ED Note Author:Skylar Wright DO Date :09/16/23 Right renal stone (N20.0: Ca lculus of kidney) Orders: acetaminophen-oxycodone, 1 tab(s), Oral, q6hr for 3 day(s), 12 tab(s), Refill(s) 0, [facility] [id number], 175, cm, 09/16/23 3:54:00 EST, Height/Length Dosing, 87.5, kg, 09/16/23 3:54:00 EST, Weight Dosing ketorolac, 15 mg = 1 mL, Injection, IV Push, Once, Stop date 09/16/23 4:01:00 EST, STAT, Start date 09/16/23 4:01:00 EST, 09/16/23 4:01:00 EST morphine, 4 mg = 1 mL, Injection, IV Push, Once, Stop date 09/16/23 6:02:00 EST, STAT, Start date 09/16/23 6:02:00 EST, 09/16/23 6:02:00 EST ondansetron, 4 mg = 2 mL, Injection, IV Push, Once, Stop date 09/16/23 4:01:00 EST, STAT, Start date 09/16/23 4:01:00 EST, 09/16/23 4:01:00 EST ondansetron, 4 mg = 1 tab(s), Oral, q8hr, # 12 tab(s), Refills(s) 0, Pharmacy: [facility] [id number], 175, cm, 09/16/23 3:54:00 EST, Height/Length Dosing, 87.5, kg, 09/16/23 3:54:00 EST, Weight Dosing oxycodone, 1 EA, Tab, Oral, Once, Stop date 09/16/23 6:02:00 EST, STAT, Start date 09/16/23 6:02:00 EST Sodium Chloride 0.9% intravenous solution, 1,000 mL, Soln-IV, IV, Once, Stop date 09/16/23 4:01:00 EST, STAT, Start date 09/16/23 4:01:00 EST, Infuse over 61, minute(s) tamsulosin, 0.4 mg = 1 cap(s), Oral, Daily, # 10 cap(s), Refills(s) 0, Pharmacy: [facility] [id number], 175, cm, 09/16/23 3:54:00 EST, Height/Length Dosing, 87.5, kg, 09/16/23 3:54:00 EST, Weight Dosing Automated Diff Basic Metabolic Panel CBC w/ Auto Diff CT Abdomen/Pelvis w/o Contrast eGFR Extra Blue Tube Extra SST Tube Hepatic Function Panel UA With Cult Reflex Future Appointments Appointment Date:11/26/2023 02:00:00 PM Scheduled Provider:Isreal DAHL MD Location:[facility] Appointment Type:URO Office Visit [facility]01-09-2024 Hospital Discharge instructions Patient Education 09/16/2023 06:23:14 Renal Colic, Lmxx-ov-Snsm Renal Colic Renal colic is pain that is caused by a kidney stone. The pain can be sharp and very bad. It may befelt in the back, belly, side (flank), or groin. It can cause nausea. Renal colic can come and go. Follow these instructions at home: Medicines Take uyyl-brd-aedkxtr and prescription medicines only as told by your doctor. Do not drive or use heavy machinery while taking prescription pain medicine. Eating and drinking Drink enough fluid to keep your pee (urine) pale yellow. You may be told to drink at least 8 10 glasses of water each day. Follow instructions from your doctor. If told, change your diet. This may include eating: ?Less salt (sodium). Eat less than 2 grams (2,000 mg) of salt per day. ?Less meat, poultry, fish, and eggs. ?More fruits and vegetables. ?Try not to eat spinach, rhubarb, sweet potatoes, or nuts. Follow instructions from your doctor about what foods and drinks to avoid. General instructions Keep all follow-up visits as told by your doctor. This is important. Collect pee samples as told by your doctor. Strain your pee every time you pee, as told by your doctor. Use the strainer that your doctor recommends. Do not throw out the kidney stone after passing it. Keep the stone so it can be tested by your doctor. Contact a doctor if: You have a fever or chills. Your pee smells bad or looks cloudy. You have pain or burning when you pee. Get help right away if: The pain in your side (flank) or your groin suddenly gets worse. You get confused. You pass out. Summary Renal colic is pain that is caused by a kidney stone. Take yptj-ied-qbilady and prescription medicines only as told by your doctor. Drink enough fluid to keep your pee pale yellow. You may be told to drink at least 8 10 glasses of water each day. Follow instructions from your doctor. Strain your pee every time you pee, as told by your doctor. Use the strainer that your doctor recommends. Do not throw out the kidney stone after passing it. Keep the stone so it can be tested by your doctor. This information is not intended to replace advice given to you by your health care provider. Make sure you discuss any questions you have with your health care provider. Document Revised: 04/29/2022 Document Reviewed: 04/29/2022 Modernizing Medicine Patient Education 2022 [employer]. Follow Up Care 09/16/2023 03:47:07 With:Israel DAHL Address: [facility] [address] [place] [address]- Business (1) When:09/19/2023 06:04:33 Comments:Take the Flomax once daily. Completed the course. You can use the Percocet, Zofran every 6 hours asneeded for pain and nausea. Please follow-up with your primary care doctor and urology for further evaluation management. If you have worsening pain, develop fever or any concerning symptoms please return to the ED for further treatment. With:SOLE DALEY Address: [address] [place] [address] [address]- Business (1) When:09/19/2023 06:04:26 [facility]12-07-2023 NoteHNO ID: [id number] Author: Lev Price, DO Service: ? Author Type: Physician Type: Progress Notes Filed: 08/14/2023 9:39 AM Note Text: [facility] [place] SE[facility] OF [facility]IONAL CARDIOLOGY OUTPATIENT VISIT DATE August 14, 2023 OUTPATIENT VISIT TYPE ESTABLISHED PRIMARY CARE PHYSICIAN: Sole Daley [address] [place] [address] [address] [place] [address] CHIEF COMPLAINT: Arrhythmia HISTORY OF PRESENT ILLNESS: Mr. Martinez is a 73 year old male with a past medical history of atrial fibrillation status post PVI, HLD, hypothyroid. I saw him previously on 02/07/23, per that note: ...he tells me that he is again feeling well. He denies having any: chest pain, palpitations, shortness of breath, orthopnea, LE edema, presyncope/syncope, N/V, bleeding, or other significant symptoms. Today, he states that he is feeling well. He denies having any: chest pain, palpitations, shortness of breath, orthopnea, LE edema, presyncope/syncope, N/V, bleeding, or other significant symptoms. He is eating vegetables daily. He drinks 1/2 caf about 4 cups a day. He doesn't drink any alcohol. He quit smoking 30 years ago. No drugs. He attempts to walk 2-3 miles 3x a week. Family, Mother had an enlarged heart. Brother had an ID when he was 72 years of age. 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 IMPRESSION: Encounter Diagnosis ICD-10-CM 1. Paroxysmal atrial fibrillation (HCC) I48.0 ECG COMPLETE BASIC METABOLIC PNL CBC 2. Primary hypertension I10 3. Mixed hyperlipidemia E78.2 4. Overweight (BMI 25.0-29.9) E66.3 PLAN AND RECOMMENDATIONS: Hx of PVI in 2014. No recurrence of AF since then. He was previously seen by Dr. Mike and is being managed with prophylactic aspirin presently until he has any recurrence of AF. Once he has a recurrence then will recommend further follow-up with EP however, for now he can continue with general cardiology. Consider Holter monitor at next visit. Goal BP less than 130/80 mmHg. Today BP is above goal. He believes it is controlled at home. Continue: amlodipine 10mg daily, metoprolol XL 25mg daily, and losartan 50mg daily. He should monitor his BP and bring BP log to next visit. I recommend checking BMP prior to next visit. Goal LDL is less than 70 mg/dL. Continue rosuvastatin 20 mg nightly. Monitor for myalgias. Check Lipid panel prior to next visit. Goal A1c is less than 7.0%. Currently overweight, recommend continuing heart healthy diet and exercising regularly. PHYSICAL EXAMINATION: BP 149/92 Pulse (!) 56 Wt 86.3 kg (190 lb 4.1 oz) BMI 28.10 kg/m? General: No apparent distress HEENT: normocephalic, EOMI, no JVD, no carotid bruit Heart: regular rhythm, no significant murmur Lungs: clear to auscultation Abdomen: bowel sounds present Extremities: no edema Musculoskeletal: chest wall nontender Neurological: alert and oriented Psychiatric: appropriate and cooperative Skin: no rash, cellulitis or lesions appreciated CARDIOVASCULAR MEDICINE TESTING: I have personally reviewed ECG and outside facility laboratory results ECG-08/14/23 Sinus bradycardia 53bpm, otherwise normal Outside labs 08/11/23 TC 148 HDL 52 LDL 78mg/dL Trig 91 Last EKG Result Conclusion ECG COMPLETE Collected: 08/14/2023 9:01 AM (Preliminary result) Impression: SINUS BRADYCARDIA OTHERWISE NORMAL ECG PAST MEDICAL HISTORY Diagnosis Date Atrial fibrillation (HCC) 2008 Hypercholesterolaemia Hypothyroidism Osteoarthritis Other disorders of ear(388.8) bilat hearing aids PAST SURGICAL HISTORY Procedure Laterality Date PAST SURGICAL HISTORY OF Bilateral 2009 shoulders PAST SURGICAL HISTORY OF facial reconstruction REPAIR UMBILICAL HERNIA Social History Tobacco Use Smoking status: Former Packs/day: 1.00 Years: 25.00 Additional pack years: 0.00 Total pack years: 25.00 Types: Cigarettes Quit date: 09/08/1989 Years since quittin.9 Smokeless tobacco: Never Substance Use Topics Alcohol use: No Drug use: No FAMILY HISTORY Problem Relation Age of Onset Heart Mother CAD/pacemaker Cancer Father pancreatic other (a fib [Other]) Brother ALLERGIES Allergen Reactions Propafenone Other: See Comments Not effective (pill in the pocket) Sotalol Other: See Comments Dizzeness CURRENT MEDICATIONS: losartan (COZAAR) 25 mg tablet Take 1 tablet by mouth once daily. Methylcellulose, Laxative, (FIBER THERAPY, M-CELLULOSE,) 500 mg tab Take by mouth q 12 HR. [place]-3 Fatty Acids 500 mg cap Take 500 mg by mouth once daily. stfabtx-svol-vokzl-oreg-capryl 100 mg-150 mg- 50 mg-150 mg cap Take by mouth. cholecalciferol, vitamin D3, 350 mcg (14,000 unit) cap Take by mouth. rosuvastatin (CRESTOR) 20 mg tablet Take 1 tablet by mouth daily at bedtime. SAW PALMETTO ORAL Take by mouth twice daily. Take one tab po bid aspirin, enteric coated (ECOTRIN) 325 mg EC (more content not included)... [facility]11-15-2023 Evaluation note* Encounter Date Diagnosis Assessment Notes Treatment Notes Treatment Clinical Notes Jul, Medicare annual wellness visit, subsequent (ICD-10 - Z00.00) Personalized health advice was given to the beneficiary including a written plan for screenings discussed and provided. Advanced care planning reviewed and/or information given as requested. Additional counseling was provided here today in regards to, Healthy diet and exercise. The above visit was performed by Coco Jane CMA, under direct supervision of Dr. Sole Daley. Document reviewed and amended by provider signed below. Jul, Need for influenza vaccination (ICD-10 - Z23) [employer] Other 10-03-2023 Hospital Discharge instructions Patient Education 06/10/2023 10:56:59 Benign Prostatic Hyperplasia Benign Prostatic Hyperplasia Benign prostatic hyperplasia (BPH) is an enlarged prostate gland that is caused by the normal agingprocess. The prostate may get bigger as a man gets older. The condition is not caused by cancer. The prostate is a walnut-sized gland that is involved in the production of semen. It is located in front of the rectum and below the bladder. The bladder stores urine. The urethra carries stored urine ou t of the body. An enlarged prostate can press on the urethra. This can make it harder to pass urine. The buildup of urine in the bladder can cause infection. Back pressure and infection may progress to bladder damage and kidney (renal) failure. What are the causes? This condition is part of the normal aging process. However, not all men develop problems from thiscondition. If the prostate enlarges away from the urethra, urine flow will not be blocked. If it enlarges toward the urethra and compresses it, there will be problems passing urine. What increases the risk? This condition is more likely to develop in men older than 50 years. What are the signs or symptoms? Symptoms of this condition include: Getting up often during the night to urinate. Needing to urinate frequently during the day. Difficulty starting urine flow. Decrease in size and strength of your urine stream. Leaking (dribbling) after urinating. Inability to pass urine. This needs immediate treatment. Inability to completely empty your bladder. Pain when you pass urine. This is more common if there is also an infection. Urinary tract infection (UTI). How is this diagnosed? This condition is diagnosed based on your medical history, a physical exam, and your symptoms. Tests will also be done, such as: A post-void bladder scan. This measures any amount of urine that may remain in your bladder after you finish urinating. A digital rectal exam. In a rectal exam, your health care provider checks your prostate by putting a lubricated, gloved finger into your rectum to feel the back of your prostate gland. This exam detects the size of your gland and any abnormal lumps or growths. An exam of your urine (urinalysis). A prostate specific antigen (PSA) screening. This is a blood test used to screen for prostate cancer. An ultrasound. This test uses sound waves to electronically produce a picture of your prostate gland. Your health care provider may refer you to a specialist in kidney and prostate diseases (urologist). How is this treated? Once symptoms begin, your health care provider will monitor your condition (active surveillance or watchful waiting). Treatment for this condition will depend on the severity of your condition. Treatment may include: Observation and yearly exams. This may be the only treatment needed if your condition and symptoms are mild. Medicines to relieve your symptoms, including: ?Medicines to shrink the prostate. ?Medicines to relax the muscle of the prostate. Surgery in severe cases. Surgery may include: ?Prostatectomy. In this procedure, the prostate tissue is removed completely through an open incision or with a laparoscope or robotics. ?Transurethral resection of the prostate (TURP). In this procedure, a tool is inserted through the opening at the tip of the penis (urethra). It is used to cut away tissue of the inner core of the prostate. The pieces are removed through the same opening of the penis. This removes the blockage. ?Transurethral incision (TUIP). In this procedure, small cuts are made in the prostate. This lessens the prostate's pressure on the urethra. ?Transurethral microwave thermotherapy (TUMT). This procedure uses microwaves to create heat. The heat destroys and removes a small amount of prostate tissue. ?Transurethral needle ablation (TUNA). This procedure uses radio frequencies to destroy and remove a small amount of prostate tissue. ?Interstitial laser coagulation (ILC). This procedure uses a laser to destroy and remove a small amount of prostate tissue. ?Transurethral electrovaporization (TUVP). This procedure uses electrodes to destroy and remove a small amount of prostate tissue. ?Prostatic urethral lift. This procedure inserts an implant to push the lobes of the prostate away from the urethra. Follow these instructions at home: Take inuy-yqf-jdmtjio and prescription medicines only as told by your health care provider. Monitor your symptoms for any changes. Contact your health care provider with any changes. Avoid drinking large amounts of liquid before going to bed or out in public. Avoid or reduce how much caffeine or alcohol you drink. Give yourself time when you urinate. Keep all follow-up visits. This is important. Contact a health care provider if: You have unexplained back pain. Your symptoms do not get better with treatment. You develop side effects from the medicine you are taking. Your urine becomes very dark or has a bad smell. Your lower abdomen becomes distended and you have trouble passing urine. Get help right away if: You have a fever or chills. You suddenly cannot urinate. You feel light-headed or very dizzy, or you faint. There are large amounts of blood or clots in your urine. Your urinary problems become hard to manage. You develop moderate to severe low back or flank pain. The flank is the side of your body between the ribs and the hip. These symptoms may be an emergency. Get help right away. Call 911. Do not wait to see if the symptoms will go away. Do not drive yourself to the hospital. Summary Benign prostatic hyperplasia (BPH) is an enlarged prostate that is caused by the normal aging process. It is not caused by cancer. An enlarged prostate can press on the urethra. This can make it hard to pass urine. This condition is more likely to develop in men older than 50 years. Get help right away if you suddenly cannot urinate. This information is not intended to replace advice given to you by your health care provider. Make sure you discuss any questions you have with your health care provider. Document Revised: 03/13/2022 Document Reviewed: 03/13/2022 Modernizing Medicine Patient Education 2022 [employer]. Follow Up Care 04/07/2023 10:55:23 With:BRANDEN ELIZALDE, Carlos Enrique Falk, URL Address: [address] [place], [place] [address]- When:Within 4 Month(s) Comments:w/ASHUTOSH [facility] [phone] Hospital Discharge instructions Patient Education 04/07/2023 10:35:44 Benign Prostatic Hyperplasia Benign Prostatic Hyperplasia Benign prostatic hyperplasia (BPH) is an enlarged prostate gland that is caused by the normal agingprocess. The prostate may get bigger as a man gets older. The condition is not caused by cancer. The prostate is a walnut-sized gland that is involved in the production of semen. It is located in front of the rectum and below the bladder. The bladder stores urine. The urethra carries stored urine ou t of the body. An enlarged prostate can press on the urethra. This can make it harder to pass urine. The buildup of urine in the bladder can cause infection. Back pressure and infection may progress to bladder damage and kidney (renal) failure. What are the causes? This condition is part of the normal aging process. However, not all men develop problems from thiscondition. If the prostate enlarges away from the urethra, urine flow will not be blocked. If it enlarges toward the urethra and compresses it, there will be problems passing urine. What increases the risk? This condition is more likely to develop in men older than 50 years. What are the signs or symptoms? Symptoms of this condition include: Getting up often during the night to urinate. Needing to urinate frequently during the day. Difficulty starting urine flow. Decrease in size and strength of your urine stream. Leaking (dribbling) after urinating. Inability to pass urine. This needs immediate treatment. Inability to completely empty your bladder. Pain when you pass urine. This is more common if there is also an infection. Urinary tract infection (UTI). How is this diagnosed? This condition is diagnosed based on your medical history, a physical exam, and your symptoms. Tests will also be done, such as: A post-void bladder scan. This measures any amount of urine that may remain in your bladder after you finish urinating. A digital rectal exam. In a rectal exam, your health care provider checks your prostate by putting a lubricated, gloved finger into your rectum to feel the back of your prostate gland. This exam detects the size of your gland and any abnormal lumps or growths. An exam of your urine (urinalysis). A prostate specific antigen (PSA) screening. This is a blood test used to screen for prostate cancer. An ultrasound. This test uses sound waves to electronically produce a picture of your prostate gland. Your health care provider may refer you to a specialist in kidney and prostate diseases (urologist). How is this treated? Once symptoms begin, your health care provider will monitor your condition (active surveillance or watchful waiting). Treatment for this condition will depend on the severity of your condition. Treatment may include: Observation and yearly exams. This may be the only treatment needed if your condition and symptoms are mild. Medicines to relieve your symptoms, including: ?Medicines to shrink the prostate. ?Medicines to relax the muscle of the prostate. Surgery in severe cases. Surgery may include: ?Prostatectomy. In this procedure, the prostate tissue is removed completely through an open incision or with a laparoscope or robotics. ?Transurethral resection of the prostate (TURP). In this procedure, a tool is inserted through the opening at the tip of the penis (urethra). It is used to cut away tissue of the inner core of the prostate. The pieces are removed through the same opening of the penis. This removes the blockage. ?Transurethral incision (TUIP). In this procedure, small cuts are made in the prostate. This lessens the prostate's pressure on the urethra. ?Transurethral microwave thermotherapy (TUMT). This procedure uses microwaves to create heat. The heat destroys and removes a small amount of prostate tissue. ?Transurethral needle ablation (TUNA). This procedure uses radio frequencies to destroy and remove a small amount of prostate tissue. ?Interstitial laser coagulation (ILC). This procedure uses a laser to destroy and remove a small amount of prostate tissue. ?Transurethral electrovaporization (TUVP). This procedure uses electrodes to destroy and remove a small amount of prostate tissue. ?Prostatic urethral lift. This procedure inserts an implant to push the lobes of the prostate away from the urethra. Follow these instructions at home: Take petz-npl-arfetkp and prescription medicines only as told by your health care provider. Monitor your symptoms for any changes. Contact your health care provider with any changes. Avoid drinking large amounts of liquid before going to bed or out in public. Avoid or reduce how much caffeine or alcohol you drink. Give yourself time when you urinate. Keep all follow-up visits. This is important. Contact a health care provider if: You have unexplained back pain. Your symptoms do not get better with treatment. You develop side effects from the medicine you are taking. Your urine becomes very dark or has a bad smell. Your lower abdomen becomes distended and you have trouble passing urine. Get help right away if: You have a fever or chills. You suddenly cannot urinate. You feel light-headed or very dizzy, or you faint. There are large amounts of blood or clots in your urine. Your urinary problems become hard to manage. You develop moderate to severe low back or flank pain. The flank is the side of your body between the ribs and the hip. These symptoms may be an emergency. Get help right away. Call 911. Do not wait to see if the symptoms will go away. Do not drive yourself to the hospital. Summary Benign prostatic hyperplasia (BPH) is an enlarged prostate that is caused by the normal aging process. It is not caused by cancer. An enlarged prostate can press on the urethra. This can make it hard to pass urine. This condition is more likely to develop in men older than 50 years. Get help right away if you suddenly cannot urinate. This information is not intended to replace advice given to you by your health care provider. Make sure you discuss any questions you have with your health care provider. Document Revised: 03/13/2022 Document Reviewed: 03/13/2022 Modernizing Medicine Patient Education 2022 [employer]. Follow Up Care 03/31/2023 11:26:46 With:BRANDEN ELIZALDE, Carlos Enrique Falk, URL Address: [address] [place], [place] [id number]- When: Unknown [facility] [id number] Note [id number]:[id number] 03-24-2023 NoteUrolift ? Some men may experience discomfort after the procedure. On occasion, some bloody discharge may beapparent from the penis. You may have soreness in the lower abdomen, and it may be uncomfortable tosit. You may experience the need to urinate more frequently and with greater urgency. These are allnormal reactions to the procedure. It is important to take care of yourself the next couple of daysto facilitate a speedy recovery. The following are some suggestions: -Have someone drive you home after the procedure. -Drink plenty of water; 8 10oz glasses per day. If your urine looks dark yellow, you are probably not drinking enough water. -Take your medications as prescribed -If you have a catheter placed, do not engage in strenuous activity until your catheter has been removed. You may take a shower but avoid a bath while you have a catheter. - In the event you have to go home with a catheter, you may notice leakage of urine and/or yellow discharge/blood around the catheter. This is normal and no cause to be alarmed; UNLESS you are havingsignificant pain associated with the leakage or the leakage does not stop. -You can use Tylenol or Advil for discomfort. Use AZO (over the counter) for burning with urination ? It is normal to have some blood in your urine after surgery. One day it may be clear, and the next day it might be bloody. Do not be alarmed, this can last a week and sometimes longer. ? It is normal to feel like you have to urinate very often but nothing comes out. You may feel likeyou have to urinate again, or feel pressure in the pelvic area, even right after you just urinated. ? You may leak and not make it to the bathroom. These are called bladder spasms and are common after the procedure. ? It is normal to have some discomfort after the procedure. This can last up to 4 weeks and includes: pelvic ache, urinary frequency, and urinary urgency. Most patients report symptoms getting betterwithin 2 weeks. ? Finish the antibiotic which you have already started ? If you were given drugs to make you drowsy or pain medication follow these instructions: -You should spend the remainder of the day and evening resting -You should not attempt to walk, including going to the bathroom without assistance. You may be lightheaded from the medication you received. -Eat light today to avoid nausea. You should be able to return to your normal diet 24 to 36 hours after your procedure. -For the next 24 hours, do not consume alcohol, attempt to drive, use power tools, sign important documents or make important decisions. After that only do so if you feel perfectly normal and alert. -Follow carefully any verbal or written instructions your surgeon may give you. ? You should contact your physician if you experience any of the following: -Temperature above 101.5 -Excessive urinary bleeding or bleeding from the penis -Continuous bladder spasms -Painful, swollen and/or inflated testicle(s) or scrotum. -Unable to void spontaneously or the indwelling catheter is not draining urine or is blocked -Bright bishop red urine that does not stop after 3 days -Unable to urinate after 7-8 hours or bladder feeling full and you can't urinate -If you have excessive or persistent pain, swelling, bleeding, nausea, vomiting, or any problems, you should first call your surgeon for advice. If you are unable to contact your surgeon, seek help from a hospital emergency room. If your doctor suggests that you go to the emergency room for catheterization for inability to urinate, be sure to tell the facility personnel to use a Coude (pronouncedcoo-day) tipped catheter.[facility]07-17-2023 Hospital Discharge instructions Patient Education 03/24/2023 14:49:03 [facility] - Urolift Discharge Instructions (Custom) Urolift Some men may experience discomfort after the procedure. On occasion, some bloody discharge may be apparent from the penis. You may have soreness in the lower abdomen, and it may be uncomfortable to sit. You may experience the need to urinate more frequently and with greater urgency. These are all normal reactions to the procedure. It is important to take care of yourself the next couple of days to facilitate a speedy recovery. The following are some suggestions: -Have someone drive you home after the procedure. -Drink plenty of water; 8 10oz glasses per day. If your urine looks dark yellow, you are probably not drinking enough water. -Take your medications as prescribed -If you have a catheter placed, do not engage in strenuous activity until your catheter has been removed. You may take a shower but avoid a bath while you have a catheter. - In the event you have to go home with a catheter, you may notice leakage of urine and/or yellow discharge/blood around the catheter. This is normal and no cause to be alarmed; UNLESS you are havingsignificant pain associated with the leakage or the leakage does not stop. -You can use Tylenol or Advil for discomfort. Use AZO (over the counter) for burning with urination It is normal to have some blood in your urine after surgery. One day it may be clear, and the next day it might be bloody. Do not be alarmed, this can last a week and sometimes longer. It is normal to feel like you have to urinate very often but nothing comes out. You may feel like you have to urinate again, or feel pressure in the pelvic area, even right after you just urinated. You may leak and not make it to the bathroom. These are called bladder spasms and are common after the procedure. It is normal to have some discomfort after the procedure. This can last up to 4 weeks and includes:pelvic ache, urinary frequency, and urinary urgency. Most patients report symptoms getting better within 2 weeks. Finish the antibiotic which you have already started If you were given drugs to make you drowsy or pain medication follow these instructions: -You should spend the remainder of the day and evening resting -You should not attempt to walk, including going to the bathroom without assistance. You may be lightheaded from the medication you received. -Eat light today to avoid nausea. You should be able to return to your normal diet 24 to 36 hours after your procedure. -For the next 24 hours, do not consume alcohol, attempt to drive, use power tools, sign important documents or make important decisions. After that only do so if you feel perfectly normal and alert. -Follow carefully any verbal or written instructions your surgeon may give you. You should contact your physician if you experience any of the following: -Temperature above 101.5 -Excessive urinary bleeding or bleeding from the penis -Continuous bladder spasms -Painful, swollen and/or inflated testicle(s) or scrotum. -Unable to void spontaneously or the indwelling catheter is not draining urine or is blocked -Bright bishop red urine that does not stop after 3 days -Unable to urinate after 7-8 hours or bladder feeling full and you can t urinate -If you have excessive or persistent pain, swelling, bleeding, nausea, vomiting, or any problems, you should first call your surgeon for advice. If you are unable to contact your surgeon, seek help from a hospital emergency room. If your doctor suggests that you go to the emergency room for catheterization for inability to urinate, be sure to tell the facility personnel to use a Coude (pronouncedcoo-day) tipped catheter. Follow Up Care 03/04/2023 07:59:02 With:Carlos Enrique LEWIS Address: [address] [place], [place] [id number] [facility] (1) When:1 week Comments:Call for followup appointment to remove the catheter. Push fluids to keep the urine clear. [facility]06-27-2023 Hospital Discharge instructions Patient Education 03/04/2023 07:34:46 Benign Prostatic Hyperplasia Benign Prostatic Hyperplasia Benign prostatic hyperplasia (BPH) is an enlarged prostate gland that is caused by the normal agingprocess. The prostate may get bigger as a man gets older. The condition is not caused by cancer. The prostate is a walnut-sized gland that is involved in the production of semen. It is located in front of the rectum and below the bladder. The bladder stores urine. The urethra carries stored urine ou t of the body. An enlarged prostate can press on the urethra. This can make it harder to pass urine. The buildup of urine in the bladder can cause infection. Back pressure and infection may progress to bladder damage and kidney (renal) failure. What are the causes? This condition is part of the normal aging process. However, not all men develop problems from thiscondition. If the prostate enlarges away from the urethra, urine flow will not be blocked. If it enlarges toward the urethra and compresses it, there will be problems passing urine. What increases the risk? This condition is more likely to develop in men older than 50 years. What are the signs or symptoms? Symptoms of this condition include: Getting up often during the night to urinate. Needing to urinate frequently during the day. Difficulty starting urine flow. Decrease in size and strength of your urine stream. Leaking (dribbling) after urinating. Inability to pass urine. This needs immediate treatment. Inability to completely empty your bladder. Pain when you pass urine. This is more common if there is also an infection. Urinary tract infection (UTI). How is this diagnosed? This condition is diagnosed based on your medical history, a physical exam, and your symptoms. Tests will also be done, such as: A post-void bladder scan. This measures any amount of urine that may remain in your bladder after you finish urinating. A digital rectal exam. In a rectal exam, your health care provider checks your prostate by putting a lubricated, gloved finger into your rectum to feel the back of your prostate gland. This exam detects the size of your gland and any abnormal lumps or growths. An exam of your urine (urinalysis). A prostate specific antigen (PSA) screening. This is a blood test used to screen for prostate cancer. An ultrasound. This test uses sound waves to electronically produce a picture of your prostate gland. Your health care provider may refer you to a specialist in kidney and prostate diseases (urologist). How is this treated? Once symptoms begin, your health care provider will monitor your condition (active surveillance or watchful waiting). Treatment for this condition will depend on the severity of your condition. Treatment may include: Observation and yearly exams. This may be the only treatment needed if your condition and symptoms are mild. Medicines to relieve your symptoms, including: ?Medicines to shrink the prostate. ?Medicines to relax the muscle of the prostate. Surgery in severe cases. Surgery may include: ?Prostatectomy. In this procedure, the prostate tissue is removed completely through an open incision or with a laparoscope or robotics. ?Transurethral resection of the prostate (TURP). In this procedure, a tool is inserted through the opening at the tip of the penis (urethra). It is used to cut away tissue of the inner core of the prostate. The pieces are removed through the same opening of the penis. This removes the blockage. ?Transurethral incision (TUIP). In this procedure, small cuts are made in the prostate. This lessens the prostate's pressure on the urethra. ?Transurethral microwave thermotherapy (TUMT). This procedure uses microwaves to create heat. The heat destroys and removes a small amount of prostate tissue. ?Transurethral needle ablation (TUNA). This procedure uses radio frequencies to destroy and remove a small amount of prostate tissue. ?Interstitial laser coagulation (ILC). This procedure uses a laser to destroy and remove a small amount of prostate tissue. ?Transurethral electrovaporization (TUVP). This procedure uses electrodes to destroy and remove a small amount of prostate tissue. ?Prostatic urethral lift. This procedure inserts an implant to push the lobes of the prostate away from the urethra. Follow these instructions at home: Take qmjo-sha-ghwzvve and prescription medicines only as told by your health care provider. Monitor your symptoms for any changes. Contact your health care provider with any changes. Avoid drinking large amounts of liquid before going to bed or out in public. Avoid or reduce how much caffeine or alcohol you drink. Give yourself time when you urinate. Keep all follow-up visits. This is important. Contact a health care provider if: You have unexplained back pain. Your symptoms do not get better with treatment. You develop side effects from the medicine you are taking. Your urine becomes very dark or has a bad smell. Your lower abdomen becomes distended and you have trouble passing urine. Get help right away if: You have a fever or chills. You suddenly cannot urinate. You feel light-headed or very dizzy, or you faint. There are large amounts of blood or clots in your urine. Your urinary problems become hard to manage. You develop moderate to severe low back or flank pain. The flank is the side of your body between the ribs and the hip. These symptoms may be an emergency. Get help right away. Call 911. Do not wait to see if the symptoms will go away. Do not drive yourself to the hospital. Summary Benign prostatic hyperplasia (BPH) is an enlarged prostate that is caused by the normal aging process. It is not caused by cancer. An enlarged prostate can press on the urethra. This can make it hard to pass urine. This condition is more likely to develop in men older than 50 years. Get help right away if you suddenly cannot urinate. This information is not intended to replace advice given to you by your health care provider. Make sure you discuss any questions you have with your health care provider. Document Revised: 03/13/2022 Document Reviewed: 03/13/2022 Modernizing Medicine Patient Education 2022 [employer]. Follow Up Care 02/17/2023 11:05:09 With:BRANDEN ELIZALDE, Carlos Enrique Falk, URL Address: [facility] [employer] [facility] [address] [place], [place] [id number]- When: Unknown [facility] Micky [id number] Hospital Discharge instructions Patient Education 02/17/2023 10:40:13 Benign Prostatic Hyperplasia Benign Prostatic Hyperplasia Benign prostatic hyperplasia (BPH) is an enlarged prostate gland that is caused by the normal agingprocess. The prostate may get bigger as a man gets older. The condition is not caused by cancer. The prostate is a walnut-sized gland that is involved in the production of semen. It is located in front of the rectum and below the bladder. The bladder stores urine. The urethra carries stored urine ou t of the body. An enlarged prostate can press on the urethra. This can make it harder to pass urine. The buildup of urine in the bladder can cause infection. Back pressure and infection may progress to bladder damage and kidney (renal) failure. What are the causes? This condition is part of the normal aging process. However, not all men develop problems from thiscondition. If the prostate enlarges away from the urethra, urine flow will not be blocked. If it enlarges toward the urethra and compresses it, there will be problems passing urine. What increases the risk? This condition is more likely to develop in men older than 50 years. What are the signs or symptoms? Symptoms of this condition include: Getting up often during the night to urinate. Needing to urinate frequently during the day. Difficulty starting urine flow. Decrease in size and strength of your urine stream. Leaking (dribbling) after urinating. Inability to pass urine. This needs immediate treatment. Inability to completely empty your bladder. Pain when you pass urine. This is more common if there is also an infection. Urinary tract infection (UTI). How is this diagnosed? This condition is diagnosed based on your medical history, a physical exam, and your symptoms. Tests will also be done, such as: A post-void bladder scan. This measures any amount of urine that may remain in your bladder after you finish urinating. A digital rectal exam. In a rectal exam, your health care provider checks your prostate by putting a lubricated, gloved finger into your rectum to feel the back of your prostate gland. This exam detects the size of your gland and any abnormal lumps or growths. An exam of your urine (urinalysis). A prostate specific antigen (PSA) screening. This is a blood test used to screen for prostate cancer. An ultrasound. This test uses sound waves to electronically produce a picture of your prostate gland. Your health care provider may refer you to a specialist in kidney and prostate diseases (urologist). How is this treated? Once symptoms begin, your health care provider will monitor your condition (active surveillance or watchful waiting). Treatment for this condition will depend on the severity of your condition. Treatment may include: Observation and yearly exams. This may be the only treatment needed if your condition and symptoms are mild. Medicines to relieve your symptoms, including: ?Medicines to shrink the prostate. ?Medicines to relax the muscle of the prostate. Surgery in severe cases. Surgery may include: ?Prostatectomy. In this procedure, the prostate tissue is removed completely through an open incision or with a laparoscope or robotics. ?Transurethral resection of the prostate (TURP). In this procedure, a tool is inserted through the opening at the tip of the penis (urethra). It is used to cut away tissue of the inner core of the prostate. The pieces are removed through the same opening of the penis. This removes the blockage. ?Transurethral incision (TUIP). In this procedure, small cuts are made in the prostate. This lessens the prostate's pressure on the urethra. ?Transurethral microwave thermotherapy (TUMT). This procedure uses microwaves to create heat. The heat destroys and removes a small amount of prostate tissue. ?Transurethral needle ablation (TUNA). This procedure uses radio frequencies to destroy and remove a small amount of prostate tissue. ?Interstitial laser coagulation (ILC). This procedure uses a laser to destroy and remove a small amount of prostate tissue. ?Transurethral electrovaporization (TUVP). This procedure uses electrodes to destroy and remove a small amount of prostate tissue. ?Prostatic urethral lift. This procedure inserts an implant to push the lobes of the prostate away from the urethra. Follow these instructions at home: Take avua-xrz-syxdevh and prescription medicines only as told by your health care provider. Monitor your symptoms for any changes. Contact your health care provider with any changes. Avoid drinking large amounts of liquid before going to bed or out in public. Avoid or reduce how much caffeine or alcohol you drink. Give yourself time when you urinate. Keep all follow-up visits. This is important. Contact a health care provider if: You have unexplained back pain. Your symptoms do not get better with treatment. You develop side effects from the medicine you are taking. Your urine becomes very dark or has a bad smell. Your lower abdomen becomes distended and you have trouble passing urine. Get help right away if: You have a fever or chills. You suddenly cannot urinate. You feel light-headed or very dizzy, or you faint. There are large amounts of blood or clots in your urine. Your urinary problems become hard to manage. You develop moderate to severe low back or flank pain. The flank is the side of your body between the ribs and the hip. These symptoms may be an emergency. Get help right away. Call 911. Do not wait to see if the symptoms will go away. Do not drive yourself to the hospital. Summary Benign prostatic hyperplasia (BPH) is an enlarged prostate that is caused by the normal aging process. It is not caused by cancer. An enlarged prostate can press on the urethra. This can make it hard to pass urine. This condition is more likely to develop in men older than 50 years. Get help right away if you suddenly cannot urinate. This information is not intended to replace advice given to you by your health care provider. Make sure you discuss any questions you have with your health care provider. Document Revised: 03/13/2022 Document Reviewed: 03/13/2022 Modernizing Medicine Patient Education 2022 [employer]. Follow Up Care 12/06/2022 08:34:50 With:BRANDEN ELIZALDE, Carlos Enrique Falk, URL Address: When: Unknown [facility] 06-02-2023 NoteHNO ID: [id number] Author: Lev Price, DO Service: ? Author Type: Physician Type: Progress Notes Filed: 02/07/2023 9:12 AM Note Text: [facility] [place] [facility] OF [facility] CARDIOLOGY OUTPATIENT VISIT DATE February 07, 2023 OUTPATIENT VISIT TYPE ESTABLISHED PRIMARY CARE PHYSICIAN: Sole Daley [address] [place] [address] [address] [place] [address] CHIEF COMPLAINT: Arrhythmia HISTORY OF PRESENT ILLNESS: Mr. Martinez is a 72 year old male with a past medical history of atrial fibrillation status post PVI, HLD, hypothyroid. I saw him previously on 11/29/22, per that note: ...he tells me that he feels well. He denies chest pain, palpitations, shortness of breath, orthopnea, LE edema, presyncope/syncope, N/V, bleeding, or other significant symptoms. Today, he tells me that he is again feeling well. He denies having any: chest pain, palpitations, shortness of breath, orthopnea, LE edema, presyncope/syncope, N/V, bleeding, or other significant symptoms. He is eating vegetables daily. He drinks 1/2 caf about 4 cups a day. He doesn't drink any alcohol. He quit smoking 30 years ago. No drugs. He attempts to walk 2-3 miles 3x a week. Family, Mother had an enlarged heart. Brother had an ID when he was 72 years of age. 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 Upon further questioning IMPRESSION: Encounter Diagnosis ICD-10-CM 1. Paroxysmal atrial fibrillation (HCC) I48.0 2. Primary hypertension I10 losartan (COZAAR) 25 mg tablet BASIC METABOLIC PNL 3. Mixed hyperlipidemia E78.2 LIPID PANEL BASIC 4. Overweight (BMI 25.0-29.9) E66.3 PLAN AND RECOMMENDATIONS: He has a remote history of PVI in 2014. No recurrence of AF since then. He was previously seen by Dr. Mike and is being managed with prophylactic aspirin presently until he has any recurrence of AF. Once he has a recurrence then will recommend further follow-up with EP however, for now he can continue with general cardiology. Goal BP less than 130/80 mmHg. Today BP is above goal. I recommend starting losartan 25mg daily. He should monitor his BP and bring BP log to next visit. I recommend checking BMP prior to next visit. Goal LDL is less than 70 mg/dL. Continue rosuvastatin 20 mg nightly. Monitor for myalgias. Check Lipid panel prior to next visit. Goal A1c is less than 7.0%. Currently overweight, recommend continuing heart healthy diet and exercising regularly. PHYSICAL EXAMINATION: BP 142/80 Pulse (!) 59 Wt 87.1 kg (192 lb) SpO2 98% BMI 28.35 kg/m? General: No apparent distress HEENT: normocephalic, EOMI, no JVD, no carotid bruit Heart: regular rhythm, no significant murmur Lungs: clear to auscultation Abdomen: bowel sounds present Extremities: no edema Musculoskeletal: chest wall nontender Neurological: alert and oriented Psychiatric: appropriate and cooperative Skin: no rash, cellulitis or lesions appreciated CARDIOVASCULAR MEDICINE TESTING: I have personally reviewed ECG and outside facility laboratory results ECG-11/29/2022 NSR 60 bpm, normal ECG Outside labs LDL 81mg/dL Last EKG Result Conclusion ECG COMPLETE Collected: 11/29/2022 8:24 AM (Final result) Impression: NORMAL SINUS RHYTHM NORMAL ECG Confirmed by MARLYN STOUT MD ([id number]) on 11/29/2022 1:42:59 PM PAST MEDICAL HISTORY Diagnosis Date Atrial fibrillation (HCC) 2008 Hypercholesterolaemia Hypothyroidism Osteoarthritis Other disorders of ear(388.8) bilat hearing aids PAST SURGICAL HISTORY Procedure Laterality Date PAST SURGICAL HISTORY OF Bilateral 2009 shoulders PAST SURGICAL HISTORY OF facial reconstruction REPAIR UMBILICAL HERNIA Social History Tobacco Use Smoking status: Former Packs/day: 1.00 Years: 25.00 Pack years: 25.00 Types: Cigarettes Quit date: 09/08/1989 Years since quittin.4 Smokeless tobacco: Never Substance Use Topics Alcohol use: No Drug use: No FAMILY HISTORY Problem Relation Age of Onset Heart Mother CAD/pacemaker Cancer Father pancreatic other (a fib [Other]) Brother ALLERGIES Allergen Reactions Propafenone Other: See Comments Not effective (pill in the pocket) Sotalol Other: See Comments Dizzeness CURRENT MEDICATIONS: Methylcellulose, Laxative, (FIBER THERAPY, M-CELLULOSE,) 500 mg tab Take by mouth q 12 HR. [place]-3 Fatty Acids 500 mg cap Take 500 mg by mouth once daily. peqdifz-ffdz-hthjl-oreg-capryl 100 mg-150 mg- 50 mg-150 mg cap Take by mouth. cholecalciferol, vitamin D3, 350 mcg (14,000 unit) cap Take by mouth. rosuvastatin (CRESTOR) 20 mg tablet Take 1 tablet by mouth daily at bedtime. SAW PALMETTO ORAL Take by mouth twice daily. Take one tab po bid aspirin, enteric coated (ECOTRIN) 325 mg EC tablet Take 1 tablet by mouth once daily. (Patient taking differently: Take 81 mg by mouth once daily.) levothyroxine (SYNTHROID) 25 mcg tablet Take 25 mcg by mouth (more content not included)...[facility]06-02-2023 History of Present illness Narrative* Lev Price, - 02/07/2023 9:00 AM EDT Images from the original note were not included. [facility] [place] SECTION OF REGIONAL CARDIOLOGY OUTPATIENT VISIT DATE February 07, 2023 OUTPATIENT VISIT TYPE ESTABLISHED PRIMARY CARE PHYSICIAN: Sole Daley [address] [place] [address] [address] [place] [address] CHIEF COMPLAINT: Arrhythmia HISTORY OF PRESENT ILLNESS: Mr. Martinez is a 72 year old male with a past medical history of atrial fibrillation status post PVI,HLD, hypothyroid. I saw him previously on 11/29/22, per that note: ...he tells me that he feels well. He denies chest pain, palpitations, shortness of breath, orthopnea, LE edema, presyncope/syncope, N/V, bleeding, or other significant symptoms. Today, he tells me that he is again feeling well. He denies having any: chest pain, palpitations, shortness of breath, orthopnea, LE edema, presyncope/syncope, N/V, bleeding, or other significant symptoms. He is eating vegetables daily. He drinks 1/2 caf about 4 cups a day. He doesn't drink any alcohol. He quit smoking 30 years ago. No drugs. He attempts to walk 2-3 miles 3x a week. Family, Mother had an enlarged heart. Brother had an ID when he was 72 years of age. 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 Upon further questioning IMPRESSION: Encounter Diagnosis ICD-10-CM 1. Paroxysmal atrial fibrillation (HCC) I48.0 2. Primary hypertension I10 losartan (COZAAR) 25 mg tablet BASIC METABOLIC PNL 3. Mixed hyperlipidemia E78.2 LIPID PANEL BASIC 4. Overweight (BMI 25.0-29.9) E66.3 PLAN AND RECOMMENDATIONS: He has a remote history of PVI in 2014. No recurrence of AF since then. He was previously seen by Dr. Mike and is being managed with prophylactic aspirin presently until he has any recurrence of AF. Once he has a recurrence then will recommend further follow-up with EP however, for now he can continue with general cardiology. Goal BP less than 130/80 mmHg. Today BP is above goal. I recommend starting losartan 25mg daily. Heshould monitor his BP and bring BP log to next visit. I recommend checking BMP prior to next visit. Goal LDL is less than 70 mg/dL. Continue rosuvastatin 20 mg nightly. Monitor for myalgias. Check Lipid panel prior to next visit. Goal A1c is less than 7.0%. Currently overweight, recommend continuing heart healthy diet and exercising regularly. PHYSICAL EXAMINATION: BP 142/80 Pulse (!) 59 Wt 87.1 kg (192 lb) SpO2 98% BMI 28.35 kg/m General: No apparent distress HEENT: normocephalic, EOMI, no JVD, no carotid bruit Heart: regular rhythm, no significant murmur Lungs: clear to auscultation Abdomen: bowel sounds present Extremities: no edema Musculoskeletal: chest wall nontender Neurological: alert and oriented Psychiatric: appropriate and cooperative Skin: no rash, cellulitis or lesions appreciated CARDIOVASCULAR MEDICINE TESTING: I have personally reviewed ECG and outside facility laboratory results ECG-11/29/2022 NSR 60 bpm, normal ECG Outside labs LDL 81mg/dL Last EKG Result Conclusion ECG COMPLETE Collected: 11/29/2022 8:24 AM (Final result) Impression: NORMAL SINUS RHYTHM NORMAL ECG Confirmed by MARLYN STOUT MD ([id number]) on 11/29/2022 1:42:59 PM PAST MEDICAL HISTORY Diagnosis Date Atrial fibrillation (HCC) 2008 Hypercholesterolaemia Hypothyroidism Osteoarthritis Other disorders of ear(388.8) bilat hearing aids PAST SURGICAL HISTORY Procedure Laterality Date PAST SURGICAL HISTORY OF Bilateral 2009 shoulders PAST SURGICAL HISTORY OF facial reconstruction REPAIR UMBILICAL HERNIA Social History Tobacco Use Smoking status: Former Packs/day: 1.00 Years: 25.00 Pack years: 25.00 Types: Cigarettes Quit date: 09/08/1989 Years since quittin.4 Smokeless tobacco: Never Substance Use Topics Alcohol use: No Drug use: No FAMILY HISTORY Problem Relation Age of Onset Heart Mother CAD/pacemaker Cancer Father pancreatic other (a fib [Other]) Brother ALLERGIES Allergen Reactions Propafenone Other: See Comments Not effective (pill in the pocket) Sotalol Other: See Comments Dizzeness CURRENT MEDICATIONS: Methylcellulose, Laxative, (FIBER THERAPY, M-CELLULOSE,) 500 mg tab Take by mouth q 12 HR. [place]-3 Fatty Acids 500 mg cap Take 500 mg by mouth once daily. afprcnw-ttrf-udpnz-oreg-capryl 100 mg-150 mg- 50 mg-150 mg cap Take by mouth. cholecalciferol, vitamin D3, 350 mcg (14,000 unit) cap Take by mouth. rosuvastatin (CRESTOR) 20 mg tablet Take 1 tablet by mouth daily at bedtime. SAW PALMETTO ORAL Take by mouth twice daily. Take one tab po bid aspirin, enteric coated (ECOTRIN) 325 mg EC tablet Take 1 tablet by mouth once daily. (Patient taking differently: Take 81 mg by mouth once daily.) levothyroxine (SYNTHROID) 25 mcg tablet Take 25 mcg by mouth once daily. Methylcellulose, Laxative, 500 mg tab Take 1,000 mg by mouth once daily. MULTIVITS,CA,MIN/IRON/FA/LYCOP (CENTRUM MEN ORAL) Take 1 tablet by mouth once daily. losartan (COZAAR) 25 mg tablet Take 1 tablet by mouth once daily. Signed: Lev Price DO, [facility] February 07, 2023 This note was partially generated using Zova voice recognition system, and there may be some incorrect words, spellings, and punctuation that were not noted in checking the note before saving. documented in this encounterAdena [facility]04-17-[facility]23 Miscellaneous Notes* Telephone Encounter - Fatemeh Harman RN - 12/23/2022 11:37 AM EDT PROnoise message sent. * Telephone Encounter - Elizabeth Wells RN - 12/23/2022 10:53 AM EDT Pt calls For past week in am bp readings 4/6 608 am 131/78 4/7 604 am 145/90 4/8 653 am 129/85 4/9 613 am 154/95 4/10 60 7 am 131/77 4/11 7 am 135/79 Denies sob , trouble breathing, chest pian Agrees to call back if s/s develop He is walking several miles a week /staying active Pt not an bp meds 8-4 appt noted ( pt on wait) Requesting sooner appt Agrees to discuss above with pcp if advised by card office-pleases call pt with office decision [facility]erson/[facility] on dial documented in this encounterAdena [facility]03-24-2023 NoteHNO ID: [id number] Author: Lev Price DO Service: ? Author Type: Physician Type: Progress Notes Filed: 11/29/2022 9:21 AM Note Text: [facility] [place] SECTION OF REGIONAL CARDIOLOGY OUTPATIENT VISIT DATE November 29, 2022 OUTPATIENT VISIT TYPE ESTABLISHED PRIMARY CARE PHYSICIAN: Sole Daley [address] [place] [address] [address] [place] [address] CHIEF COMPLAINT: Arrhythmia HISTORY OF PRESENT ILLNESS: Mr. Martinez is a 72 year old male with a past medical history of atrial fibrillation status post PVI, HLD, hypothyroid. Today, he tells me that he feels well. He denies chest pain, palpitations, shortness of breath, orthopnea, LE edema, presyncope/syncope, N/V, bleeding, or other significant symptoms. He is eating vegetables daily. He drinks 1/2 caf about 4 cups a day. He doesn't drink any alcohol. He quit smoking 30 years ago. No drugs. He attempts to walk 2-3 miles 3x a week. He states that he walks more during the summer. Family, Mother had an enlarged heart. Brother had an ID when he was 72 years of age. 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 Upon further questioning IMPRESSION: Encounter Diagnosis ICD-10-CM 1. Paroxysmal atrial fibrillation (HCC) I48.0 ECG COMPLETE OUTSIDE VENDOR CARDIAC OUTPATIENT EXTENDED RHYTHM RECORDING (WITHOUT TELEMETRY) 2. Elevated blood pressure reading without diagnosis of hypertension R03.0 3. Mixed hyperlipidemia E78.2 rosuvastatin (CRESTOR) 20 mg tablet LIPID PANEL BASIC 4. Overweight (BMI 25.0-29.9) E66.3 PLAN AND RECOMMENDATIONS: He has a remote history of PVI in 2015. No recurrence of AF since then. He was previously seen by Dr. Mike and is being managed with prophylactic aspirin presently until he has any recurrence of AF. Once he has a recurrence then will recommend further follow-up with EP however, for now he can continue with general cardiology. Goal BP less than 130/80 mmHg. Today BP is above goal. He will monitor his BP and bring blood pressure log to next visit. He can also be monitored and treated by his PCP if needed. Goal LDL is less than 70 mg/dL. Recommend switching to rosuvastatin 20 mg nightly. Monitor for myalgias. Goal A1c is less than 7.0%. Currently overweight, recommend continuing heart healthy diet and exercising regularly. PHYSICAL EXAMINATION: BP 151/93 Pulse 65 Ht 175.3 cm (5' 9 ) Wt 88 kg (194 lb) SpO2 98% BMI 28.65 kg/m? General: No apparent distress HEENT: normocephalic, EOMI, no JVD, no carotid bruit Heart: regular rhythm, no significant murmur Lungs: clear to auscultation Abdomen: bowel sounds present Extremities: no edema Musculoskeletal: chest wall nontender Neurological: alert and oriented Psychiatric: appropriate and cooperative Skin: no rash, cellulitis or lesions appreciated CARDIOVASCULAR MEDICINE TESTING: I have personally reviewed ECG and outside facility laboratory results ECG-11/29/2022 NSR 60 bpm, normal ECG Last EKG Result Conclusion ECG COMPLETE Collected: 11/29/2022 8:24 AM (Preliminary result) Impression: NORMAL SINUS RHYTHM NORMAL ECG PAST MEDICAL HISTORY Diagnosis Date Atrial fibrillation (HCC) 2008 Hypercholesterolaemia Hypothyroidism Osteoarthritis Other disorders of ear(388.8) bilat hearing aids PAST SURGICAL HISTORY Procedure Laterality Date PAST SURGICAL HISTORY OF Bilateral 2009 shoulders PAST SURGICAL HISTORY OF facial reconstruction REPAIR UMBILICAL HERNIA Social History Tobacco Use Smoking status: Former Packs/day: 1.00 Years: 25.00 Pack years: 25.00 Types: Cigarettes Quit date: 09/08/1989 Years since quittin.2 Smokeless tobacco: Never Substance Use Topics Alcohol use: No Drug use: No FAMILY HISTORY Problem Relation Age of Onset Heart Mother CAD/pacemaker Cancer Father pancreatic other (a fib [Other]) Brother ALLERGIES Allergen Reactions Propafenone Other: See Comments Not effective (pill in the pocket) Sotalol Other: See Comments Dizzeness CURRENT MEDICATIONS: SAW PALMETTO ORAL Take by mouth twice daily. Take one tab po bid aspirin, enteric coated (ECOTRIN) 325 mg EC tablet Take 1 tablet by mouth once daily. (Patient taking differently: Take 81 mg by mouth once daily.) levothyroxine (SYNTHROID) 25 mcg tablet Take 25 mcg by mouth once daily. Methylcellulose, Laxative, 500 mg tab Take 1,000 mg by mouth once daily. MULTIVITS,CA,MIN/IRON/FA/LYCOP (CENTRUM MEN ORAL) Take 1 tablet by mouth once daily. Methylcellulose, Laxative, (FIBER THERAPY, M-CELLULOSE,) 500 mg tab Take by mouth q 12 HR. [place]-3 Fatty Acids 500 mg cap Take 500 mg by mouth once daily. odgadjr-hfhq-oflhb-oreg-capryl 100 mg-150 mg- 50 mg-150 mg cap Take by mouth. cholecalciferol, vitamin D3, 350 mcg (14,000 unit) cap Take by mouth. rosuvastatin (CRESTOR) 20 mg tablet Take 1 tablet by mouth daily at bedtime. Signed: (more content not included)...[facility]03-24-2023 Note HNO ID: [id number] Author: Ga Burton MD Service: ? Author Type: Physician Type: Procedures Filed: 12/13/2022 3:54 PM Note Text: .monPatient Name: Montse Martinez : 1950 Ordering Provider: Lev Price Indication: I48.0 Paroxysmal atrial fibrillation Type of Monitor: Extended Monitoring-Zio Patch Enrollment Dates: 11/29/2022-12/02/2022[facility]03-24-2023 Nurse Note* Neli Wren MA - 11/29/2022 9:16 AM EDT EVENT MONITOR DISPOSABLE PATCH INSTRUCTIONS Patient Name: Montse Martinez [facility] Number: [id number] Skin prepped and cleansed with alcohol Patch secured to prepped area Monitor Activated Serial #: [id number] Patient Instructed: Prescribed order timeframe Bathing guidelines Usage of event button and diary documentation Return of monitor at the end of prescribed order Call with problems [phone] or [phone]. [phone] Patient expresses a good understanding of instructions Neli Wren MA documented in this encounterAdena [facility]03-24-2023 History of Present illness Narrative* Lev Price DO - 11/29/2022 8:58 AM EDT Images from the original note were not included. [facility] [place] SECTION OF REGIONAL CARDIOLOGY OUTPATIENT VISIT DATE November 29, 2022 OUTPATIENT VISIT TYPE ESTABLISHED PRIMARY CARE PHYSICIAN: Sole Daley [address] [place] [address] [address] [place] [address] CHIEF COMPLAINT: Arrhythmia HISTORY OF PRESENT ILLNESS: Mr. Martinez is a 72 year old male with a past medical history of atrial fibrillation status post PVI,HLD, hypothyroid. Today, he tells me that he feels well. He denies chest pain, palpitations, shortness of breath, orthopnea, LE edema, presyncope/syncope, N/V, bleeding, or other significant symptoms. He is eating vegetables daily. He drinks 1/2 caf about 4 cups a day. He doesn't drink any alcohol. He quit smoking 30 years ago. No drugs. He attempts to walk 2-3 miles 3x a week. He states that he walks more during the summer. Family, Mother had an enlarged heart. Brother had an ID when he was 72 years of age. 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 Upon further questioning IMPRESSION: Encounter Diagnosis ICD-10-CM 1. Paroxysmal atrial fibrillation (HCC) I48.0 ECG COMPLETE OUTSIDE VENDOR CARDIAC OUTPATIENT EXTENDED RHYTHM RECORDING (WITHOUT TELEMETRY) 2. Elevated blood pressure reading without diagnosis of hypertension R03.0 3. Mixed hyperlipidemia E78.2 rosuvastatin (CRESTOR) 20 mg tablet LIPID PANEL BASIC 4. Overweight (BMI 25.0-29.9) E66.3 PLAN AND RECOMMENDATIONS: He has a remote history of PVI in 2014. No recurrence of AF since then. He was previously seen by Dr. Mike and is being managed with prophylactic aspirin presently until he has any recurrence of AF. Once he has a recurrence then will recommend further follow-up with EP however, for now he can continue with general cardiology. Goal BP less than 130/80 mmHg. Today BP is above goal. He will monitor his BP and bring blood pressure log to next visit. He can also be monitored and treated by his PCP if needed. Goal LDL is less than 70 mg/dL. Recommend switching to rosuvastatin 20 mg nightly. Monitor for myalgias. Goal A1c is less than 7.0%. Currently overweight, recommend continuing heart healthy diet and exercising regularly. PHYSICAL EXAMINATION: BP 151/93 Pulse 65 Ht 175.3 cm (5' 9 ) Wt 88 kg (194 lb) SpO2 98% BMI 28.65 kg/m General: No apparent distress HEENT: normocephalic, EOMI, no JVD, no carotid bruit Heart: regular rhythm, no significant murmur Lungs: clear to auscultation Abdomen: bowel sounds present Extremities: no edema Musculoskeletal: chest wall nontender Neurological: alert and oriented Psychiatric: appropriate and cooperative Skin: no rash, cellulitis or lesions appreciated CARDIOVASCULAR MEDICINE TESTING: I have personally reviewed ECG and outside facility laboratory results ECG-11/29/2022 NSR 60 bpm, normal ECG Last EKG Result Conclusion ECG COMPLETE Collected: 11/29/2022 8:24 AM (Preliminary result) Impression: NORMAL SINUS RHYTHM NORMAL ECG PAST MEDICAL HISTORY Diagnosis Date Atrial fibrillation (HCC) 2008 Hypercholesterolaemia Hypothyroidism Osteoarthritis Other disorders of ear(388.8) bilat hearing aids PAST SURGICAL HISTORY Procedure Laterality Date PAST SURGICAL HISTORY OF Bilateral 2009 shoulders PAST SURGICAL HISTORY OF facial reconstruction REPAIR UMBILICAL HERNIA Social History Tobacco Use Smoking status: Former Packs/day: 1.00 Years: 25.00 Pack years: 25.00 Types: Cigarettes Quit date: 09/08/1989 Years since quittin.2 Smokeless tobacco: Never Substance Use Topics Alcohol use: No Drug use: No FAMILY HISTORY Problem Relation Age of Onset Heart Mother CAD/pacemaker Cancer Father pancreatic other (a fib [Other]) Brother ALLERGIES Allergen Reactions Propafenone Other: See Comments Not effective (pill in the pocket) Sotalol Other: See Comments Dizzeness CURRENT MEDICATIONS: SAW PALMETTO ORAL Take by mouth twice daily. Take one tab po bid aspirin, enteric coated (ECOTRIN) 325 mg EC tablet Take 1 tablet by mouth once daily. (Patient taking differently: Take 81 mg by mouth once daily.) levothyroxine (SYNTHROID) 25 mcg tablet Take 25 mcg by mouth once daily. Methylcellulose, Laxative, 500 mg tab Take 1,000 mg by mouth once daily. MULTIVITS,CA,MIN/IRON/FA/LYCOP (CENTRUM MEN ORAL) Take 1 tablet by mouth once daily. Methylcellulose, Laxative, (FIBER THERAPY, M-CELLULOSE,) 500 mg tab Take by mouth q 12 HR. [place]-3 Fatty Acids 500 mg cap Take 500 mg by mouth once daily. nstnqcn-bmrv-cdsmi-oreg-capryl 100 mg-150 mg- 50 mg-150 mg cap Take by mouth. cholecalciferol, vitamin D3, 350 mcg (14,000 unit) cap Take by mouth. rosuvastatin (CRESTOR) 20 mg tablet Take 1 tablet by mouth daily at bedtime. Signed: Lev Price DO, [facility] November 29, 2022 This note was partially generated using Zova voice recognition system, and there may be some incorrect words, spellings, and punctuation that were not noted in checking the note before saving. documented in this encounterAdena [facility] Center11-10-2022 Evaluation note* Encounter Date Diagnosis Assessment Notes Treatment Notes Treatment Clinical Notes Jul, Medicare annual well ness visit, initial (ICD-10 - Z00.00) Personalized health advice was given to the beneficiary including a written plan for screenings discussed and provided. Advanced care planning reviewed and/or information given as requested. Additional counseling was provided here today in regards to, Impaired Fasting Glucose and healthy diet and exercise. The above visit was performed by Coco Jane CMA, under direct supervision of Dr. Sole Daley. Document reviewed and amended by provider signed below., Health screening for men material was published, Top tips for healthy living material was published, Performing a skin exam material was published, Men's eyes: how to protect your vision material was published, Testicular self exam (NANCY) material was published, Prostate-specific antigen (PSA) test material was published Jul, Hypercholesteremia (ICD-10 - E78.00) Jul, Need for influenza vaccination (ICD-10 - Z23) About vaccines material was published, Immunization guidelines for older adults material was published Jul, Screening for prosta te cancer (ICD-10 - Z12.5) Jul, Fatigue (ICD-10 - R53.83) Jul, Impaired fasting glu cose (ICD-10 - R73.01) Prediabetes: strategies for a healthy life material was published [employer] Other 08-30-2022 History and physical note* Nabila Valenzuela MD - 05/07/2022 10:30 AM EDT Images from the original note were not included. [facility] [place] [facility] Department of Cardiovascular Medicine SECTION OF CARDIAC PACING and ELECTROPHYSIOLOGY OUTPATIENT VISIT DATE May 07, 2022 OUTPATIENT VISIT TYPE CONSULTATION PRIMARY CARE PHYSICIAN: Sole Daley [address] [place] [address] [address] [place] [address] REFERRING PHYSICIAN SELF CHIEF COMPLAINT: Previously, symptomatic paroxysmal A. fib HISTORY OF PRESENT ILLNESS: Cardiac consultation at the request of Dr. Espino. A copy of this consultation note will be provided to the requesting physician by way of shared Medical record or letter to requesting physician via [employer]. Mr. Martinez is a 71 year old male with dyslipidemia and previously symptomatic paroxysmal A. Fib --- underwent catheter ablation in 2015, performed by Dr. Smith. He was previously an established patient of Dr. Chetan Todd (general cardiology), but his care was lost to follow-up. He is done very well throughout the years, with exception of the brief episode of AF in the post op., There has been no recurrence since. Montse reports no specific symptoms. He describes a fairly active lifestyle. He denies chest pain, shortness of breath, orthopnea, cough, edema, palpitations, PND, lightheadedness or syncope. PAST CARDIAC HISTORY: PAST MEDICAL HISTORY Diagnosis Date Atrial fibrillation (HCC) 2008 Hypercholesterolaemia Hypothyroidism Osteoarthritis Other disorders of ear(388.8) bilat hearing aids PAST SURGICAL HISTORY Procedure Laterality Date PAST SURGICAL HISTORY OF Bilateral 2009 shoulders PAST SURGICAL HISTORY OF facial reconstruction REPAIR UMBILICAL HERNIA SOCIAL HISTORY Social History Tobacco Use Smoking status: Former Smoker Packs/day: 1.00 Years: 25.00 Pack years: 25.00 Types: Cigarettes Quit date: 09/08/1989 Years since quittin.6 Smokeless tobacco: Never Used Substance Use Topics Alcohol use: No Drug use: No FAMILY HISTORY Problem Relation Age of Onset Heart Mother CAD/pacemaker Cancer Father pancreatic other (a fib [Other]) Brother ALLERGIES: ALLERGIES Allergen Reactions Propafenone Other: See Comments Not effective (pill in the pocket) Sotalol Other: See Comments Dizzeness MEDICATIONS: aspirin, enteric coated (ECOTRIN) 325 mg EC tablet Take 1 tablet by mouth once daily. levothyroxine (LEVOTHROID) 25 mcg tablet Take 25 mcg by mouth once daily. Methylcellulose, Laxative, (FIBER THERAPY) 500 mg tab Take 1,000 mg by mouth once daily. atorvastatin (LIPITOR) 20 mg tablet Take 20 mg by mouth once daily. MULTIVITS,CA,MIN/IRON/FA/LYCOP (CENTRUM MEN ORAL) Take 1 tablet by mouth once daily. meloxicam (MOBIC) 15 mg tablet Take 15 mg by mouth once daily. REVIEW OF SYSTEMS: GENERAL: Negative for: Weight loss or gain, Fever or Chills, Weakness and Sleep difficulties. HEENT: Negative for: Headache, Impaired Vision, Glasses, Hearing Impairment, Ringing in Ears, Nosebleeds, Poor dental care, Bleeding Gums, Dentures NECK: Negative for: Swelling, Pain, Stiffness RESPIRATORY: Negative for: Cough, Blood in Sputum, Shortness of breath, Wheezing, Apnea GASTROINTESTINAL: Negative for: Trouble swallowing, Heartburn, Change in bowel habits, Blood in stool, Dark black stools MUSCULOSKELETAL: Negative for: Muscle or joint pain, Stiffness , Joint swelling NEUROLOGIC/PSYCHIATRIC: Negative for: Weakness, Paralysis, Numbness, Tingling, Tremor, Nervousness,Depressed mood, Memory loss SKIN: Negative for: Rashes, Itching HEMATOLOGICAL/LYMPHATIC: Negative for: Easy bruising , Easy bleeding ENDOCRINE: Negative for: Heat or cold intolerance, Excessive sweating, Frequent urination, Frequentthirst PHYSICAL EXAMINATION: BP 134/88 Pulse (!) 51 Ht 175.3 cm (5' 9 ) Wt 87.1 kg (192 lb) BMI 28.35 kg/m General: Well appearing, in no acute distress. Skin: No clubbing, no cyanosis. Eyes: Extra ocular movements intact Oropharynx: Teeth in good repair. Neck: No jugular venous distention, no carotid bruits, carotids have a normal upstroke, no palpablethyromegaly. Lungs: Clear to auscultation bilaterally, no wheezing or rhonchi. Heart: Regular rhythm, PMI not displaced, S1, S2 normal, no S3, no S4, no heaves, no rub and no murmur. Abdomen: Soft, nontender, bowel sounds normal, no palpable organomegaly, no bruits. Extremities: No peripheral edema . Grade 2/4 distal pulses bilaterally. Neuro: Oriented to person, place and time, alert, cooperative, gait coordinated. CARDIOVASCULAR MEDICINE TESTING: Electrocardiogram: Normal sinus rhythm I have personally reviewed the Electrocardiogram. IMPRESSION: Mr. Martinez is a active and high functioning 71 year old male with treated dyslipidemia, and prior history of symptomatic paroxysmal A. fib. In 2015 he underwent catheter ablation performed by Dr. Smith. He is done very well since with no recurrence of symptomatic AF. He was recommended follow-up with EP, by his PCP. I reassured Montse that he is doing very well. With his overall low risk factor profile for systemic thromboembolism, it is appropriate in my opinionto maintain prophylactic level aspirin. I emphasized the importance of continued healthy lifestyle practices. His blood pressure is well controlled, without antihypertensive drug therapy. Montse reports previously being a patient of Dr. Chetan Todd and is looking to establish with general cardiology. He lives in [facility], and we will facilitate an appointment for him to establishwith our [facility]. He does not require regular follow-up with electrophysiology, unless he has recurrence of atrial fibrillation in the future. Nabila Valenzuela MD Electrophysiology staff pager [phone] May 07, 2022 11:17 AM [facility]* Encounter Date Diagnosis Assessment Notes Treatment Notes Treatment Clinical Notes Apr, Cough (ICD-10 - R05.9) Apr, COVID-19 (ICD-10 - U07.1) Drink plenty fluids, get plenty of rest. Continue home medications as prescribed. Take Tylenol or Motrin as needed for aches pains or fevers. Follow-up with your family physician if no improvement in 2 to 3 days. [employer] Other 07-13-2022 Evaluation note* Encounter Date Diagnosis Assessment Notes Treatment Notes Treatment Clinical Notes Mar, Lower respiratory infection (ICD-10 - J22) [employer] Other 07-06-2022 Evaluation note* Encounter Date Diagnosis Assessment Notes Treatment Notes Treatment Clinical Notes Mar, Lower respiratory infection (ICD-10 - J22) Discussed his funny feeling side effect r/t Mucinex. Also made patient aware that his blood pressure is elevated likely secondary to the pseudoephedrine and Mucinex. Discontinue the medication and only continue efyw-xbo-xgmzajx syrup. Declines Gita Smyth today. Lung randall are clear and patient does not require steroids or albuterol at this time.He is a bit concerned for his lungs due to his history of pulmonary nodules, smoking in early adulthood, and exposures to harsh Occupational chemicals historically.I am agreeable to prescribing macrolide for lower respiratory coverage for good measure however I do explain to him that likely he is still suffering from a virus rather than bacterial infection. Continue to push fluids, utilize clei-auq-gqfgkvo medications as discussed, get plenty of rest, eat a high-protein diet and follow-up if symptoms persist or worsen. *Progress note was completed with the assistance of voice recognition software for dictation purposes. Please excuse any grammatical errors that were not corrected during review process. [employer] Other 09-27-2021 Evaluation note* Encounter Date Diagnosis Assessment Notes Treatment Notes Treatment Clinical Notes May, Impaired fasting glu cose (ICD-10 - R73.01) We will call patient with results. May, Hypercholesteremia (ICD-10 - E78.00) We will call patient with results. May, Elevated blood press ure reading without diagnosis of hypertension (ICD-10 - R03.0) Lengthy discussion with patient today that certainly based on his pressure here today and previous pressures, he does not have issues with high blood pressure. Today's pressure is actually higher than his typical, where he is usually around 110-115 systolic. May, Prostate cancer screening (ICD-10 - Z12.5) May, Flu vaccine need (IC D-10 - Z23) [employer] Other Evaluation + Plan note Future Appointments Appointment Date:03/04/2023 07:30:00 AM Scheduled Provider:Carlos Enrique LEWIS MD Location:[facility] Appointment Type:URO Procedure 15 min [facility] Evaluation + Plan note Future Appointments Appointment Date:03/10/2023 12:45:00 PM Scheduled Provider: Location:[facility] Appointment Type:Urology CALL PAT FT Appointment Date:03/24/2023 02:15:00 PM Scheduled Provider: Location:[facility] Appointment Type:Urology FT [facility] Evaluation + Plan note Future Appointments Appointment Date:03/31/2023 11:00:00 AM Scheduled Provider: Location:[facility] Appointment Type:[facility] Future Appointments Appointment Date:06/10/2023 10:00:00 AM Scheduled Provider:Carlos Enrique LEWIS MD Location:[facility] Appointment Type:URO Office Visit [facility] evaluation + Plan note Future Appointments Appointment Date:10/06/2023 09:30:00 AM Scheduled Provider:Carlos Enrique LEWIS MD Location:[facility] Appointment Type:URO Office Visit [facility] evaluation noteNo InformationN[employer] Other evaludhmfp note* Diagnosis PAF (paroxysmal atrial fibrillation) (HCC)- Primary Atrial fibrillation [facility] assessment information [facility] Work Phone: evaluation note* Diagnosis Paroxysmal atrial fibrillation (HCC)- Primary Atrial fibrillation Elevated blood pressure reading without diagnosis of hypertension Mixed hyperlipidemia Overweight (BMI 25.0-29.9) Overweight documented in this encounter [facility] note* Diagnosis Paroxysmal atrial fibrillation (HCC)- Primary Atrial fibrillation Primary hypertension Unspecified essential hypertension Mixed hyperlipidemia Overweight (BMI 25.0-29.9) Overweight documented in this encounter [facility] general Narrative - Reported* Type Description Date Medical History Hypothyroid Medical History OA - shoulder Medical History Afib - see Cardiology Medical History Hyperchol Surgical History Bilat Shoulder 2008 Surgical History Umbilical Hernia 1994 Surgical History Left Cheek age 11 Surgical History cardiac ablation 05/2015 Hospitalization History Left Cheek Hospitalization History Syncope Episode 2006 [employer] Other [facility]yigl general Narrative - Reported* Type Description Date Medical History Hypothyroid Medical History OA - shoulder Medical History Afib - see Cardiology Medical History Hyperchol Surgical History Bilat Shoulder 2008 Surgical History Umbilical Hernia 1994 Surgical History Left Cheek age 11 Surgical History cardiac ablation 05/2015 Surgical History Colonoscopy 05/2021 Hospitalization History Left Cheek Hospitalization History Syncope Episode 2006 [employer] Other Hisxrtb general Narrative - Reported* Type Description Date Medical History Hypothyroid Medical History OA - shoulder Medical History Afib - see Cardiology Medical History Hyperchol Surgical History Bilat Shoulder 2008 Surgical History Umbilical Hernia 1994 Surgical History Left Cheek age 11 Surgical History cardiac ablation 05/2015 Surgical History Colonoscopy 05/2021 Surgical History Prostate Urolift 05/2023 Hospitalization History Left Cheek Hospitalization History Syncope Episode 2006 [employer] Other Hospital course Narrative No data available for this section [facility] Progress note No data available for this section [facility] Reason for referral (narrative)* Outpatient Procedure (Routine) - Authorized Specialty Diagnoses / Procedures Referred By Contac t Referred To [facility] Diagnoses Paroxysmal atrial fibrillation (HCC) Procedures ECG COMPLETE ECG ROUTINE ECG W/LEAST 12 LDS W/I&R Lev Price DO [address] [place] [address] [facility] [place] [address] [place] [address] Referral ID Status Reason Start Date Expiration Date Visits Requested Visits Authorized [id number] Authorized Auto-Generat ed Referral 11/29/2022 11/29/2023 1 1 [facility] Chief Complaint and Reason for Visit Chief Complaint E78.00;Z12.5;R53.83; R73.01 Chief Complaint kidney stones Chief Complaint kidney stones Kidney Stones Chief Complaint kidney stones Kidney Stones E78.2 Advance Directives Advance Directive Response Recorded Date/ Time Advance Directives No June 16, 2018 6:29am Advance Directive Response Recorded Date/ Time Advance Directives No June 16, 2018 7:29am Summary Purpose Family History No Family History Records Found Additional Source Comments Source Comments (unrecognize d section and content) In the event this informatio n is protected by the Federal Confidentiality of Alcohol and Drug Abuse Patient Records regulations: The Federal rules restrict any use of the information to criminally investigate or prosecute any alcohol or drug abuse patient.[facility] the event this information is protected by the Federal Confidentiality of Alcohol and Drug Abuse Patient Records regulations: The Federal rules restrict any use of the information to criminally investigate or prosecute any alcohol or drug abuse patient.[facility] Center[facility] the event this information is protected by the Federal Confidentiality of Alcohol and Drug Abuse Patient Records regulations: The Federal rules restrict any use of the information to criminally investigate or prosecute any alcohol or drug abuse patient.[facility] Center[facility] the event this information is protected by the Federal Confidentiality of Alcohol and Drug Abuse Patient Records regulations: The Federal rules restrict any use of the information to criminally investigate or prosecute any alcohol or drug abuse patient.[facility] Center[facility] the event this information is protected by the Federal Confidentiality of Alcohol and Drug Abuse Patient Records regulations: The Federal rules restrict any use of the information to criminally investigate or prosecute any alcohol or drug abuse patient.[facility] Care Teams (unrecognized sec tion and content) Personnel Name: SOLE DALEY DO Address: Address: [address] [place] [phone]- Name: Amna Anderson Team Status: Active Member Role Status Dates Sole Daley DO Primary Care Provider Active Team Status: Inactive Member Role Status Dates Sole Daley DO Primary Care Provider Active Isreal Dahl MD Attending Provider Active Child Nutrition Assistant Relationship Specialty Start Date End Date Sole Daley DO [address] [place] [id number] PCP - General Family Practice 03/02/15 Madonna Smith MD [address] [place], [place] [id number] Primary Staff Physician Cardiology 11/24/18 Child Nutrition Assistant Relationship Specialty Start Date End Date Sole Daley DO [address] [place] [id number] PCP - General Family Practice 03/02/15 Madonna Smith MD [address] [place] [address] Primary Staff Physician Cardiology 11/24/18 Team Status: Inactive Member Role Status Dates Sole Daley DO Primary Care Provider, Attending Provider Active Child Nutrition Assistant Relationship Specialty Start Date End Date Sole Daley DO [address] [place] [id number] PCP - General Family Medicine 03/02/15 Madonna Smith MD [address] [place] [address] Primary Staff Physician Cardiology 11/24/18 Child Nutrition Assistant Relationship Specialty Start Date End Date Sole Daley DO [address] [place] [id number] PCP - General Family Medicine 03/02/15 Madonna Smith MD [address] [address] Primary Staff Physician Cardiology 11/24/18 Child Nutrition Assistant Relationship Specialty Start Date End Date Sole Daley DO [address] [phone] PCP - General Family Medicine 03/02/15 Madonna Smith MD [address] [address] Primary Staff Physician Cardiology 11/24/18 Team Status: Inactive Member Role Status Dates Sole Daley DO Primary Care Provider Active Lev Price DO Attending Provider Active REASON FOR VISIT (unrecogniz ed section and content) Reason Comments CARD New Patient Consult Afib ablation 2 016 Reason Comments CARD New Patient Consult Reason Comments Patient Update Reason Comments Cardiology Follow Up Goals (unrecognized section and content) Goals may be documented in a n alternate section (unrecognized sect ion and content) No Status Records FoundNo Status Records FoundNo Status Records Found INFORMATION SOURCE (unrecogn ized section and content) DATE CREATED AUTHOR 08/16/2023 [facility] DATE CREATED AUTHOR AUTHOR'S ORGANIZ ATION 08/20/2023 [facility] DATE CREATED AUTHOR AUTHOR'S ORGANIZ ATION 09/16/2023 [facility] FOR RECORDS PERTAINING TO PATIENTS WHO ARE OR HAVE BEEN ENROLLED IN A CHEMICAL DEPENDENCY/SUBSTANCEABUSE PROGRAM, SOME INFORMATION MAY BE OMITTED. This clinical summary was aggregated from multiple sources. Caution should be exercised in using it in the provision of clinical care. This summary normalizes information from multiple sources, and as a consequence, information in this document may materially change the coding, format and clinical context of patient data. In addition, data may be omitted in some cases. CLINICAL DECISIONS SHOULD BE BASED ON THE PRIMARY CLINICAL RECORDS. [employer] provides no warranty or guarantee of the accuracy or completeness of information in this document.
[2023-09-17 13:10] LABS: INR 0.99; Partial Thromboplastin Time 25.9 sec (22.3-36.2); Prothrombin Time 10.5 sec (9.0-11.6)
== END 2023-09-17 11:22 | disposition home or self-care (01) ==
LOC: PST 11:22
PROVIDERS: PCP Family Medicine; Visit Provider Urology
DX: Z01.812 Encounter for preprocedural laboratory examination (principal); N20.1 Calculus of ureter
CPT/HCPCS: 36415; 85610; 85730

== ENCOUNTER 2023-09-18 08:52 | Day surgery (SDC) | payer MEDICARE, OTHER, SELFPAY ==
[2023-09-17 12:34] VITALS: BP 133/72; PULSE 89; RESP 20; TEMP 36.3; O2SAT 93
[2023-09-17 14:54] VITALS: BMI 29.0
[2023-09-18] VITALS (9 sets, daily range): BP systolic 102–128; BP diastolic 67–97; PULSE 68–84; RESP 12–19; TEMP 35.9–37; O2SAT 93–98; BMI 28.0
--- NOTE | 2023-09-18 | FL_ITS ---
[address] [address] Patient Name: MONTSE MARTINEZ MRN: [id number] date: 1950 Sex: M Assigned Patient [facility]: [facility] Current Patient Location: Accession/Order Number: [id number] Exam Date: 09/18/2023 10:25 Report Date: 09/19/2023 06:45 At the request of: MARIN DAHL Procedure: FL fluoroscopy <1hr NON-READ EXAM: FL fluoroscopy <1hr NON-READ HISTORY: RETRO TECHNIQUE: FINDINGS: Please see Operative Report. Electronically authenticated by: RADIOLOGIST NO Date: 09/19/2023 06:45
--- OUTSIDE RECORDS SUMMARY | 2023-09-18 08:56 | XMS_ITS | CCD ---
Author Name Unknown Address [address] [place] [address] Organization [facility] Care Team Providers Care Floral Manager Name Role Phone Edi DO Solekendell Bahena Primary Care Provider Madonna Smith MD Unavailable Edi, Sole Unavailable Fatemeh Link Unavailable Jeanette Longo Unavailable EdiSole singer DO Primary Care Provider Rustam Smith MDoun Unavailable Edi, DO Sole M. Primary Care Provider Edi, DO Sole M. Attending Provider Edi DO Solekendell Bahena Primary Care Provider [phone] Madonna Smith MD Unavailable Unavailable EDI, SOLE M Primary Care Physician Amna Anderson Unavailable Unavailable Edi, DO Sole M. Primary Care Provider MD Isreal Dahl Attending Provider Edi, DO Sole MChris Primary Care Provider MD Isreal Dahl Attending Provider [phone] DO Lev Price Attending Provider [phone] SOLE DALEY Primary Care Unavailable LEV PRICE [...] [PROPAFENONE] Drug Allergy 03-13-2015 Other: See Comments [facility] Work Phone: (6 sources) Sotalol; Translations: [SOTALOL] Drug Allergy 03-13-2015 Other: See Comments [facility] Work Phone: Medications Current Medications Medication Drug [...] 3 day(s), 12 tab(s), Refill(s) 0, [facility] [id number], 175, cm, 09/16/23 3:54:00 EST, Height/Length Dosing, [...] 1-2 tabs q4hr PRN after the procedure, [facility] [id number], 179, cm, 03/04/23 7:43:00 EDT, Height/Length Dosing, [...] BID, # 14 cap(s), Refills(s) 0, Pharmacy: [facility] [id number], 175, cm, 09/16/23 3:54:00 EST, Height/Length Dosing, [...] # 14 tab(s), Refills(s) 0, Pharmacy: [facility] [id number], 179, cm, 03/04/23 7:43:00 EDT, Height/Length Dosing, [...] # 2 tab(s), Refills(s) 0, Pharmacy: [facility] [id number], 179, cm, 02/17/23 10:13:00 EDT, Height/Length Dosing... Start Date: 02/17/23 Status: Ordered diazePAM 10 mg oral tablet (1 source) Benzodiazepine Start: 03-17-2023 Valium 10 mg Tab 10 mg = 1 tab(s), Oral, Once, Take one hour prior to procedure, # 1 tab(s), Refills(s) 0, Pharmacy: [facility] [id number], 179, cm, 03/04/23 7:43:00 EDT, Height/Length Dosing, [...] by alcon th daily at bedtime. Saw Casey 450 MG (17 sources) take 1 capsule by mouth twice daily Saw Casey 450 MG One capsule Orally Twice Daily [...] # 10 cap(s), Refills(s) 0, Pharmacy: [facility] [id number], 175, cm, 09/16/23 3:54:00 EST, Height/Length Dosing, [...] # 12 tab(s), Refills(s) 0, Pharmacy: [facility] [id number], 175, cm, 09/16/23 3:54:00 EST, Height/Length Dosing, [...] daily. 0 Active take 1 tablet by [facility] every twelve hours Methylcellulose, Laxative, (FIBER THERAP Y, M-CELLULOSE,) 500 mg tab Take by mouth q 12 HR. 0 Active take [address] [facility] every twelve hours Fiber Therapy 500 mg [...] Take 1 tablet by alcon once daily. Breckenridge-3 Fatty Acids 500 mg cap (3 sources) take 1 capsule by mouth once daily Breckenridge-3 Fatty Acids 500 mg cap Take 500 mg by mouth once daily. 0 Active Comment on above: Take 500 mg by mouth once daily. SAW PALMETTO ORAL (4 sources) SAW PALMETTO ORA L Take by mouth twice daily. Take one tab po bid 0 Active Comment on above: Take by mouth twice daily. Take one tab po bid cpobipj-wzlx-ncllw-ore g-capryl 100 mg-150 mg- 50 mg-150 mg cap (3 sources) rqtggvp-uaob-ljh ve-or eg-capryl 100 mg-150 mg- 50 mg-150 [...] Basophils/100 WBC (Bld) 0.6 % Normal 0.0-2.0 [facility] Comment on above: Order Comment: Order Added by Discern Expert. Performed By: #### 2 804413, 29473404, 2265551, 7983484, 7094899 ####[place] [address] [address] Basophils/Leukocytes Auto (Bld) [Pure # fraction] 0.1 E9/L Normal 0.0-0.2 [facility] Comment on above: Order Comment: Order Added by Discern Expert. Performed By: #### 2 006391, 11440431, 5037475, 8273210, 6867005 ####[address] [address] Eosinophils/100 WBC (Bld) 0.7 % Normal 0.0-8.0 [facility] Comment on above: Order Comment: Order Added by Discern Expert. Performed By: #### 2 573428, 57904457, 2363539, 1342648, 7806288 ####[address] [address] Eosinophils/Leukocytes Auto (Bld) [Pure # fraction] 0.1 E9/L Normal 0.0-0.5 [facility] Comment on above: Order Comment: Order Added by Discern Expert. Performed By: #### 2 838190, 87942917, 8823546, 7410158, 6202595 ####[address] [address] Lymphocytes/100 WBC (Bld) 15.6 % Normal 14.0-50.0 [facility] Comment on above: Order Comment: Order Added by Yassine Expert. Performed By: #### 2 672898, 84855316, 6325811, 4632707, 0265382 ####[address] [address] Lymphocytes/Leukocytes Auto (Bld) [Pure # fraction] 2.0 E9/L Normal 1.0-4.0 [facility] Comment on above: Order Comment: Order Added by Yassine Expert. Performed By: #### 2 168654, 68380861, 9248745, 5121850, 2619632 ####[address] [address] Monocytes/100 WBC (Bld) 5.7 % Normal 4.0-14.0 [facility] Comment on above: Order Comment: Order Added by Discern Expert. Performed By: #### 2 825328, 87622851, 8186975, 8969295, 6012777 ####[address] [place] [address] Monocytes/Leukocytes Auto (Bld) [Pure # fraction] 0.7 E9/L Normal 0.2-1.0 [facility] Comment on above: Order Comment: Order Added by Discern Expert. Performed By: #### 2 635393, 40774338, 9345053, 4501595, 1736172 ####[address] [place] [address] Neutrophils/100 WBC (Bld) 77.4 % High 36.0-75.0 [facility] Comment on above: Order Comment: Order Added by Discern Expert. Performed By: #### 2 625775, 19811500, 8002255, 4928613, 6706250 ####[address] [place] [address] Neutrophils/Leukocytes Auto (Bld) [Pure # fraction] 9.9 E9/L High 2.0-7.5 [facility] Comment on above: Order Comment: Order Added by Discern Expert. Performed By: #### 2 821841, 98001463, 9091320, 0052197, 6062068 ####[address] [place] [address] BMPon 09-16-2023 Anion gap [Moles/Vol] 13 mmol/L Normal 6-16 [facility] Comment on above: Performed By: #### 2 328054, 58210252, 7555183, 6839114, 5941882 ####[address] [place] [address] BUN/Creat Ratio 18 No Units Normal 10-20 [facility] Comment on above: Performed By: #### 2 383767, 66885437, 0048332, 3340689, 1374016 ####[address] [place] [address] Calcium [Mass/Vol] 9.0 mg/dL Normal 8.9-11.1 [facility] Comment on above: Performed By: #### 2 589928, 76444698, 9014219, 5861685, 0234095 ####[facility] [address] [place] [address] Chloride [Moles/Vol] 100 mmol/L Low 101-111 [facility] Comment on above: Performed By: #### 2 130678, 01562364, 1418719, 6589384, 9027029 ####[facility] [address] [place] [address] CO2 [Moles/Vol] 28 mmol/L Normal 21-31 [facility] Comment on above: Performed By: #### 2 344567, 12873005, 0679869, 9551673, 0785718 ####[facility] [address] [place] [address] Creatinine [Mass/Vol] 1.2 mg/dL Normal 0.5-1.3 [facility] Comment on above: Performed By: #### 2 714191, 55751579, 2135443, 4414209, 5593861 ####[facility] [address] [place] [address] Glucose [Mass/Vol] 135 mg/dL Normal 55-199 [facility] Comment on above: Performed By: #### 2 494246, 93159017, 5787207, 9010881, 3740489 ####[facility] [address] [facility] [place] [address] Potassium [Moles/Vol] 4.0 mmol/L Normal 3.5-5.3 [facility] Comment on above: Performed By: #### 2 847903, 04598536, 7334416, 0178584, 8000733 ####[facility] [address] [place] [address] Sodium [Moles/Vol] 137 mmol/L Normal 135-145 [facility] Comment on above: Performed By: #### 2 630512, 06054965, 3707973, 6261814, 7051224 ####[facility] [address] [place] [address] Urea nitrogen [Mass/Vol] 22 mg/dL High 5-21 [facility] Comment on above: Performed By: #### 2 725628, 52724743, 4386301, 8341160, 0642476 ####[facility] [address] [place] [address] CBC w/ Auto Diffon 4 Erythrocyte distribution width (RBC) [Ratio] 13.5 % Normal 10.9-14.2 [facility] Comment on above: Performed By: #### 2 656878, 07015985, 5253854, 5041246, 4848379 ####[address] [address] Hematocrit (Bld) [Volume fraction] 45.7 % Normal 37.7-49.0 [facility] Comment on above: Performed By: #### 2 037011, 62379826, 2253392, 7502521, 9077045 ####[facility] [address] [place] [address] Hemoglobin (Bld) [Mass/Vol] 15.1 g/dL Normal 13.5-17.5 [facility] Comment on above: Performed By: #### 2 966942, 61166663, 3720517, 8321867, 0897990 ####[facility] [address] [place] [address] MCH (RBC) [Entitic mass] 28.8 pg Normal 27.0-34.0 [facility] Comment on above: Performed By: #### 2 762722, 30608701, 1817796, 2004659, 9536121 ####[facility] [address] [place] [address] MCHC (RBC) [Mass/Vol] 33.0 g/dL Normal 31.4-36.0 [facility] Comment on above: Performed By: #### 2 282395, 05467559, 3093836, 6674386, 6429635 ####[address] [place] [address] MCV (RBC) [Entitic vol] 87.5 fL Normal 80.0-100.0 [facility] Comment on above: Performed By: #### 2 370337, 50239378, 8030502, 3031255, 7128342 ####[address] [address] Platelet mean volume (Bld) [Entitic vol] 9.2 fL Normal 6.4-10.8 [facility] Comment on above: Performed By: #### 2 603565, 67349163, 3218744, 7776379, 4893878 ####[address] [address] Platelets (Bld) [#/Vol] 194.0 E9/L Normal 150.0-500.0 [facility] Comment on above: Performed By: #### 2 805891, 16186782, 9346686, 8838322, 8741597 ####[address] [address] RBC (Bld) [#/Vol] 5.2 E12/L Normal 4.3-5.9 [facility] Comment on above: Performed By: #### 2 755596, 87851198, 5401965, 3258171, 4887494 ####[address] [address] WBC corrected for nucl RBC Auto (Bld) [#/Vol] 12.7 E9/L High 4.0-11.0 [facility] Comment on above: Performed By: #### 2 619173, 74206175, 0707536, 0168368, 7923428 ####[address] [place] [address] CHEMISTRYOrdered By: Cornelius glasgow on 09-16-2023 Albumin [...] mL/min/1.73 m2 Normal >=59mL/min / 1.73 m2 [facility] Chem S CT Abdomen/Pelvis w/o Tricia reveles [...] Oral contrast amount in ml's: 0 Normal [facility] Consent for Treatmenton Consent for Treatment [id number] IFF Normal [facility] Discharge Instructionson Discharge Instructions [id number] TIFF Normal [facility] ED Clinical Summaryon 2023 ED Clinical Summary (Inserted Image. Lynnette ble to display) [place] [address] ED Clinical Summary Person Information Name: MONTSE MARTINEZ Bernadette/[facility] Age: 73 Years : 1950 Sex: Male Language: New Zealander PCP: SOLE DALEY DO Marital Status: Visit [...] 09/16/2023 06:23:14 09/16/2023 06:23:14 09/16/2023 06:23:14 ADDRESS: [address] [place] [address] [place] [id number] PHYS DOC NOTES: MEDICAL INFORMATION: Prescriptions Given: New Medications [facility] [id number], [address] [place], [place] [id number], [phone] acetaminophen-oxycodone (Percocet 5 mg-325 mg oral tablet) 1 Tablets By Mouth every 6 hours for 3 Days. Refills: 0. ondansetron (Zofran ODT 4 mg Tab-Dis) 1 Tablets By Mouth every 8 hours. Refills: 0. Medications to Continue Taking That Have Changed [facility] [id number], [address] [place], [place] [id number], [phone] START: tamsulosin (Flomax 0.4 mg Cap) 1 [...] day. PATIENT EDUCATION INFORMATION: Instructions: Renal Colic, Xerw-iz-Vnll Follow up: With: Address: When: Isreal DAHL [facility], [address] [place] [address] Business (1) In 3 days [...] treatment. With: Address: When: TORSTEN SHANKS [address] [place] [address] [employer] (1) In 3 days 09/19/2023 DIAGNOSIS: Right renal stone Normal [facility] ED Note-Physicianon 09-16-19 ED Note-Physician Basic [...] and Complexity of Problems Differential Diagnosis: [] [facility] Data External documents reviewed: [] My EKG [...] 3 day(s), 12 tab(s), Refill(s) 0, [facility] [id number], 175, cm, 09/16/23 3:54:00 EST, Height/Length Dosing, [...] q8hr, # 12 tab(s), Refills(s) 0, Pharmacy: [facility] [id number], 175, cm, 09/16/23 3:54:00 EST, Height/Length Dosing, [...] # 10 cap(s), Refills(s) 0, Pharmacy: [facility] [id number], 175, cm, 09/16/23 3:54:00 EST, Height/Length Dosing, [...] Pus (more content not included)... Normal [facility] Comment on above: Result Comment: Elec [...] these instructions at home: Medicines ? Take chhc-vlu-kirsuhd and prescription medicines only as told by [...] caused by a kidney stone. ? Take lfhu-rzp-xxueexr and prescription medicines only as told by [...] provider. Document Revised: 04/29/2022 Document Reviewed: 04/29/2022 [employer] Patient Education ? 2022 Dragonfly List. Normal [facility] ED Patient Summaryon 024 ED Patient Summary (Inserted Image. Lynnette ble to display) [address] [address] Patient Discharge Instructions Person Information Name: MONTSE MARTINEZ Age: 73 Years Arrival Date: 09/16/2023 03:46:00 Discharge Diagnosis: Right renal stone Primary Care Physician: SOLE DALEY DO Provider Information Primary Provider: Skylar Wright DO [employer] Secretary:None The exam and treatment you received in the Emergency Department were for an urgent problem and are not intended as complete care. It is important that you follow up with a doctor, nurse practitioner, or physician?s marketing assistant retail division for ongoing care. If your symptoms become [...] [facility], [address] , [place] [address] Business (1) In 3 days 09/19/2023 [...] further treatment. With: Address: When: SOLE DALEY [facility] MELVA MELÉNDEZ, [facility] [address] [place] [address] Business (1) In 3 days 09/19/2023 In the event that this physician does not participate in your insurance network, please consult with your insurance company to find a nearby participating provider. Patient Education Materials: Renal Colic, Bbxj-pg-Xawb A MESSAGE TO ALL PATIENTS REGARDING OPIOIDS PRESCRIPTION OPIOIDS: WHAT YOU NEED TO KNOW Prescription opioids can be used to help relieve bsnlvkjc-ky-akqfce pain and are often prescribed following a [...] prescription opioids (more content not included)... Normal [facility] HEMATOLOGYOrdered By: SYSTEM SYSTEM on 09-16-2023 [...] 09-16-2023 Albumin [Mass/Vol] 4.5 g/dL Normal 3.3-5.0 [facility] Comment on above: Performed By: #### 2 486470, 65216996, 6613640, 0223457, 7241462 ####[place] [facility] [address] [place] [address] Albumin/Globulin [Mass ratio] 1.6 {ratio} Normal 1.1-2.2 [facility] Comment on above: Performed By: #### 2 085694, 69217769, 5671847, 9140540, 8304872 ####[facility] [address] [place] [address] Alk Phos 72 Int._Unit/L Normal 21-98 [facility] Comment on above: Performed By: #### 2 170521, 28896057, 4394245, 9157291, 1625005 ####[address] [place] [address] ALT 17 Int._Unit/L Normal 6-46 [facility] Comment on above: Performed By: #### 2 230690, 31832002, 2580636, 4122046, 2154153 ####[address] [place] [address] AST 17 Int._Unit/L Normal 5-43 [facility] Comment on above: Performed By: #### 2 024686, 35377631, 0065241, 6370039, 8059405 ####[facility] [address] [place] [address] Bili Direct 0.1 mg/dL Normal 0.0-0.4 [facility] Comment on above: Performed By: #### 2 460465, 70147524, 5906269, 0615652, 5527871 ####[facility] [address] [place] [address] Bili Indirect 0.6 mg/dL Normal 0.1-0.9 [facility] Comment on above: Performed By: #### 2 802130, 45904812, 6801020, 3482448, 6284976 ####[facility] [address] [place] [address] Bili Total 0.7 mg/dL Normal 0.0-1.1 [facility] Comment on above: Performed By: #### 2 196083, 37111728, 0938834, 5117468, 1546597 ####[facility] [address] [place] [address] Globulin (S) [Mass/Vol] 2.9 g/dL Normal 1.4-4.0 [facility] Comment on above: Performed By: #### 2 895097, 62892039, 7500100, 7195548, 0491636 ####[facility] [address] [place] [address] Protein [Mass/Vol] 7.4 g/dL Normal 6.0-7.8 [facility] Comment on above: Performed By: #### 2 582305, 72422092, 8159789, 9716217, 6946883 ####[facility] [address] [place] [address] RAD - Preliminary Cat Scan R eporton 09-16-2023 RAD - Preliminary Cat Scan Report [id number]#[id number] TIFF Normal [facility] UA With Cult Reflexon 2023 Bacteria LM Ql (Urine sed) TRACE Normal Trace [facility] Comment on above: Performed By: #### 1 8500497 #### [facility] [address] [place] [address] Bilirubin Ql (U) Negative Normal Negative [facility] Comment on above: Performed By: #### 1 9528813 #### [facility] [address] [place] [address] Clarity (U) CLEAR Normal Clear [facility] Comment on above: Performed By: #### 1 7032737 #### [facility] [address] [place] [address] Color (U) YELLOW Normal Yellow [facility] Comment on above: Performed By: #### 1 4082719 #### [facility] [address] [place] [address] Epithelial cells.squamous LM.HPF (Urine sed) [#/Area] 0-2 Normal 0-2 [facility] Comment on above: Performed By: #### 1 1945192 #### [facility] [address] [place] [address] Glucose Test strip (U) [Mass/Vol] Negative Normal Negative [facility] Comment on above: Performed By: #### 1 1675781 #### [facility] [address] [place] [address] Hemoglobin Ql (U) TRACE Abnormal Negative [facility] Comment on above: Performed By: #### 1 9000219 #### [facility] [address] [place] [address] Ketones (U) [Mass/Vol] Negative Normal Negative [facility] Comment on above: Performed By: #### 1 9972090 #### [facility] [address] [place] [address] [place].plasma/[place] .RBC (Bld) [Mass ratio] 0-3 Normal 0-3 [facility] Comment on above: Performed By: #### 1 8078592 #### [facility] [address] [place] [address] Mucus Ql (Urine sed) TRACE Normal [facility] Comment on above: Performed By: #### 1 2643011 #### [facility] [address] [place] [address] Nitrite Ql (U) Negative Normal Negative [facility] Comment on above: Performed By: #### 1 1704446 #### [facility] [address] [place] [address] pH (U) 6.0 [pH] Invalid Interpretation Code 5.0-9.0 [facility] Comment on above: Performed By: #### 1 2618909 #### [facility] [address] [place] [address] Protein (U) [Mass/Vol] 1+ Abnormal Negative [facility] Comment on above: Performed By: #### 1 5524320 #### [facility] [address] [place] [address] Specific gravity (U) [Rel density] >=1.030 Invalid Interpretation Code 1.005-1.030 [facility] Comment on above: Performed By: #### 1 1462955 #### [facility] [address] [place] [address] Type of Urine collection method Clean Catch Normal [facility] Comment on above: Performed By: #### 1 7541028 #### [facility] [address] [place] [address] Urobilinogen Qn (U) 0.2 {Anthony'U}/dL Normal 0.0-1.0 [facility] Comment on above: Performed By: #### 1 4639866 #### [facility] [address] [place] [address] WBC Auto Ql (U) Negative Normal Negative [facility] Comment on above: Performed By: #### 1 4536935 #### [facility] [address] [place] [address] WBC LM.HPF (Urine sed) [#/Area] 0-5 Normal 0-5 [facility] Comment on above: Performed By: #### 1 3991207 #### [facility] [address] [place] [address] URINALYSISOrdered By: Cornelius Gordon on 09-16-2023 Bacteria [...] AM) Normal Negative [facility] UA Auto SS [place].plasma/[place] .RBC (Bld) [Mass ratio] 0-3 /HPF Normal [...] FT UA Auto SS Urobilinogen Qn (U) 0.7989987 {Anthony'U}/dL Normal 0.0 - 1.0 EU/dL [facility] UA Auto SS WBC Auto Ql (U) Negative (09/16/23 4:06 AM) Normal Negative [facility] UA Auto SS WBC LM.HPF (Urine sed) [#/Area] 0-5 /HPF Normal 0-5/HPF [facility] UA Auto SS eGFRon 09-16-2023 eGFR 65 mL/min/1.73 m2 Normal >=59 [facility] Comment on above: Order Comment: Order added by Discern Expert. Performed By: #### 2 688878, 79914097, 4620839, 3029920, 9103164 ####[facility] [address] [place] [address] RAD - MISCon 08-15-2023 RAD - MISC [id number] IFF Normal [facility] CNOVon 08-14-2023 CNOV Office Visit (JENNIFER ) MONTSE MARTINEZ ([id number]) 1950 M Date Time Provider Department 08/14/23 9:00 AM LEV PRICE During your visit today, we recorded the following information about you: Pulse Blood pressure Weight 56/minute 149/92 86.3 kg Lev Price DO 08/14/2023 9:39 AM Signed [facility] [place] SECTION OF [facility] OUTPATIENT VISIT DATE August 14, 2023 OUTPATIENT VISIT TYPE ESTABLISHED PRIMARY CARE PHYSICIAN: Sole Daley [address] [place] [address] [address] [place] [address] CHIEF COMPLAINT: Arrhythmia HISTORY OF PRESENT ILLNESS: [...] had an enlarged heart. Brother had an NE when he was 72 years of age. 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 IMPRESSION: Encounter Diagnosis ICD-10-CM 1. Paroxysmal atrial [...] tab Take by mouth q 12 HR. Breckenridge-3 Fatty Acids 500 mg cap Take 500 mg by mouth once daily. jumidvw-wckw-vzwhz-oreg -capryl 100 mg-150 mg- 50 mg-150 mg cap Take by mouth. cholecalciferol, (more content not included)... [facility] ECG COMPLETEon 08-14-2023 ECG COMPLETE Ventricular Rate : 5 3 BPM Atrial Rate : 53 BPM P-R Interval : 186 ms QRS Duration : 110 ms Q-T Interval : 422 ms QTC Calculation(Bazett) : 395 ms Calculated P Wilton : 63 degrees Calculated R Wilton : 66 degrees Calculated T Wilton : 61 degrees SINUS BRADYCARDIA OTHERWISE NORMAL ECG Confirmed by MARLYN STOUT MD ([id number]) on 08/14/2023 7:31:09 PM NAME : MONTSE MARTINEZ PID : [id number] : 1950 Gender : Male Race : ORD : [id number] Procedure Date : Aug 14 2023 09:01:32 [...] : , Acquired by : , Normal [facility] Cholesterol [Mass/volume] in Serum or PlasmaOrdered By: Lev Price on 08-11-2023 Cholesterol [Mass/Vol] 148 mg/dL 140-200 [facility] Comment on above: Chol less than 200 m g/dl low riskChol 201-239 mg/dl borderline riskChol 240 mg/dl and greater high risk Cholesterol in LDL Calc [Mas s/Vol]Ordered By: Lev Price on 08-11-2023 Cholesterol in LDL [Mass/Vol] 78 mg/dL 0-100 [facility] Comment on above: LDL ATP III CLASSIFI CATIONLDL less than 100 mg/dL OptimalLDL 100-129 mg/dL Near or above optimalLDL 130-159 mg/dL Borderline highLDL 160-189 mg/dL HighLDL greater than 189 mg/dL Very high Cholesterol in VLDL Calc [Ma ss/Vol]Ordered By: Lev Price on 08-11-2023 Cholesterol in VLDL [Mass/Vol] 18 mg/dL [facility] Lipid Panelon 08-11-2023 Cholesterol [Mass/Vol] 148 mg/dL Normal 140-200 [facility] Comment on above: Result Comment: Chol less than 200 mg/dl low risk Chol 201-239 mg/dl borderline risk Chol 240 mg/dl and greater high risk Performed By: #### L IPID #### [facility] [address] [place] [address] [place] Cholesterol in HDL [Mass/Vol] 52 mg/dL Normal 23-92 [facility] [place] Comment on above: Result Comment: HDL CHOL ATP-III CLASSIFICATION Cardiovascular Risk HDL > or equal to 60 mg/dL LOW HDL < 40 mg/dL HIGH Performed By: #### L IPID #### [facility] [address] [place] [address] [place] Cholesterol.total/Chol esterol in HDL [Mass ratio] 2.8 {ratio} Normal <5.0 [facility] [place] Comment on above: Result Comment: PERF ORMED BY: [place] [address] PATHOLOGIST COMMUNICATIONS CONTROLLER SU DOSS M.D. Performed By: #### L IPID #### [facility] [address] [place] [address] [place] LDL Cholesterol,Calculated 78 mg/dL Normal 0-100 [facility] [place] Comment on above: Result Comment: LDL ATP III CLASSIFICATION LDL less than 100 mg/dL Optimal LDL 100-129 mg/dL Near or above optimal LDL 130-159 mg/dL Borderline high LDL 160-189 mg/dL High LDL greater than 189 mg/dL Very high Performed By: #### L IPID #### [facility] [address] [place] [address] [place] Triglyceride w/Reflex 91 mg/dL Normal 0-149 [facility] Comment on above: Result Comment: TRIG ATP III CLASSIFICATION TRIG less than 150 mg/dL Normal TRIG 150-199 mg/dL Borderline high TRIG 200-500 mg/dL High TRIG greater than 500 mg/dL Very high Standard traceable to the Center for Disease Conrtrol and Prevention (CDC) test method. Performed By: #### L IPID #### [facility] [address] [place] [id number] [facility] VLDL CHOLESTEROL 18 mg/dL Normal [facility] Comment on above: Performed By: #### L IPID #### [facility] [address] [place] [id number] [facility] Serum or plasma high density lipoprotein (HDL) cholesterol measurementOrdered By: Lev Price on 08-11-2023 Cholesterol in HDL [Mass/Vol] 52 mg/dL 23-92 [facility] [place] Comment on above: HDL CHOL ATP-III CLA SSIFICATION Cardiovascular RiskHDL > or equal to 60 mg/dL LOWHDL < 40 mg/dL HIGH Serum or plasma total choles terol/high density lipoprotein (HDL) cholesterol mass ratOrdered By: Lev Price on 08-11-2023 Cholesterol.total/Chol esterol in HDL [Mass ratio] 2.8 {ratio} <5.0 [facility] Triglyceride [Mass/volume] i n Serum or PlasmaOrdered By: Lev Price on 08-11-2023 Triglyceride [Mass/Vol] 91 mg/dL 0-149 [facility] Comment on above: TRIG ATP III CLASSIF ICATIONTRIG less than 150 mg/dL NormalTRIG 150-199 mg/dL Borderline highTRIG 200-500 mg/dL High TRIG greater than 500 mg/dL Very highStandard traceable to the Center for Disease Conrtrol and Prevention (CDC) test method. Operative Reporton Operative Report [id number]#1.00T IFF Normal [facility] ECG 12-Leadon 07-30-2023 ECG 12-Lead [id number]#1.00TI FF Normal [facility] Lab Reportson 07-30-2023 Lab Reports [id number]#1.00T IFF Normal [facility] Lab Reports [id number]#1.00TI FF Normal [facility] Formson 07-15-2023 Forms [id number]#1.00T IFF Normal [facility] Consent for Procedure/Surger yon 07-08-2023 Consent for Procedure/Surgery [id number]#1.00 TIFF Normal [facility] Formson 07-08-2023 Forms [id number]#1.00T IFF Normal [facility] RAD - MISCon 07-07-2023 RAD - MISC [id number]#1.00T IFF Normal [facility] RAD - MISCon 07-04-2023 RAD - MISC [id number]#1.00T IFF Normal [facility] Lab Reportson 07-03-2023 Lab Reports [id number]#1.00T IFF Normal [facility] Blood Urea Nitrogenon 2022 Urea nitrogen [Mass/Vol] 15 mg/dL Normal 04-01 [facility] Comment on above: Performed By: #### C REAT, BUN #### [facility] [address] [place] [address] [place] Creatinineon 06-24-2023 Creatinine [Mass/Vol] 0.94 mg/dL Normal 0.70-1.30 [facility] Comment on above: Performed By: #### C REAT, BUN #### [facility] [address] [place] [id number] [place] GFR/1.73 sq M.predicted MDRD (S/P/Bld) [Vol rate/Area] mL/min/{1.73_m2} Normal [facility] Comment on above: Result Comment: PERF ORMED BY: [place] [address] PATHOLOGIST COMMUNICATIONS CONTROLLER SU DOSS M.D. Performed By: #### C REAT, BUN #### [address] Creatinine [Mass/volume] in Serum or PlasmaOrdered By: Isreal Dahl on 06-24-2023 Creatinine [Mass/Vol] 0.94 mg/dL 0.70-1.30 [facility] No Panel InformationOrdered By: Isreal Dahl on 06-24-2023 Estimated GFR (CKD-EPI) > 60.0 mL/Min [facility] Pharmacy Creatinine Clearance (Chem N/A [facility] Urea nitrogen [Mass/volume] in Serum or PlasmaOrdered By: Isreal Dahl on 06-24-2023 Urea nitrogen [Mass/Vol] 15 mg/dL 7-25 [facility] XR IVPon 06-24-2023 XR IVP [facility] Main [address] [place] [address] XRay Report Signed Patient: Montse Martinez MR#: [id number] 03 : 1950 Acct:[id number] Age/Sex: 73 / M ADM Date: 06/24/23 Loc: XD Room: Type: [facility] Attending Dr: Isreal Dahl MD Copies to: [...] Donnie Ledesma M.D.06/24/2023 12:36 PM Dictation Location: [place] [address] Transcribed By: [facility] 06/24/23 1236 Dictated By: Donnie Ledesma DO 06/24/23 1232 Signed By: 06/24/23 1236 Normal [facility] Screenson 06-19-2023 Screens [id number]#1.00T IFF Normal [facility] Ambulatory Visit Summaryon 1 Ambulatory Visit Summary MONTSE MARTINEZ Marya :1950 Visit Date:06/18/2023 Ambulatory Visit Instructions Your Diagnosis Ureteral stone with hydronephrosis BPH with urinary obstruction Incomplete bladder emptying Kidney stones Tests Performed Urnls Dip Stick Auto w/o Microscopy POC 43595 XR IVP -- Results Pending -- Please [...] Carlos Enrique LEWIS MD Where: [facility] Ambulatory Visit Summary MONTSE MARTINEZ :1950 Visit Date:06/18/2023 Ambulatory Visit Instructions Your Diagnosis Ureteral stone with hydronephrosis BPH with urinary obstruction Incomplete bladder emptying Kidney stones Tests Performed Urnls Dip Stick Auto w/o Microscopy POC 27939 XR IVP -- Results Pending -- Please [...] Carlos Enrique LEWIS MD Where: [facility] Patient Educationon 06-18-20 Patient Education Nephrology [...] including vitamins, herbs, eye drops, creams, and insg-pni-dwegamb medicines. ? Any problems you or family [...] tells you to take them. ? Taking vnkq-fog-yxdbjnk medicines, vitamins, herbs, and supplements. Eating and [...] the pieces (more content not included)... Normal [facility] RAD - MISCon 06-18-2023 [facility] [id number]#1.00T IFF Normal [facility] Urology Office/Clinic Noteon 06-18-2023 Urology Office/Clinic Note Chief Complaint Follow up to [facility] on 06/14/23 HPI Staff Pt is here today for follow up to [facility] on 06/14/23. Pt presented to [facility] due to RLQ abdominal pain, nausea, and [...] for this patient from Dr. Lewis and [facility]. I have reviewed and verified the staff [...] Assessment/Plan Dr. Lewis pt following up to [facility] ED visit 06/14/23 due to RLQ abdominal [...] [facility] [address], [place] [address]- Additional Instructions: f/u pending IVP Patient Education Laser Therapy for Kidney Stones I, Ibis Puente, personally scribed for Dr (more content not included)... Normal [facility] Comment on above: Result Comment: Elec tronically Signed By: Isreal DAHL MD\.br\Date and Time Signed: 06/18/23 12:00 EDT\.br\Electronically Co-Signed By: Ibis Puente\.br\Date and Time Co-Signed: 06/18/23 11:56 EDT XR KUBon 06-17-2023 XR KUB [facility] Main [address] [address] XRay Report Signed Patient: Montse Martinez MR#: [id number] 03 : 1950 Acct:[id number] Age/Sex: 73 / M ADM Date: 06/17/23 Loc: D Room: Type: [facility] Attending Dr: Isreal Dahl MD Copies to: [...] Marbella Peterson M.D.06/17/2023 11:44 AM Dictation Location: [place] [address] Transcribed By: [facility] 06/17/23 1144 Dictated By: Marbella Peterson MD 06/17/23 1106 Signed By: 06/17/23 1144 [facility] Physician Orderon 06-16-2023 Physician Order [id number]#1.00T IFF Normal [facility] Auto Diffon 06-14-2023 Basophils/100 WBC (Bld) 0.4 % Normal 0.0-2.0 [facility] Comment on above: Order Comment: Order Added by Discern Expert. Performed By: #### 2 560884, 60454221, 9085237, 4343908, 6458098, 9896444 #### [facility] [address] [place] [address] Basophils/Leukocytes Auto (Bld) [Pure # fraction] 0.1 E9/L Normal 0.0-0.2 [facility] Comment on above: Order Comment: Order Added by Discern Expert. Performed By: #### 2 210512, 33011517, 6901367, 2609695, 9002741, 8601861 #### [facility] [address] [place] [address] Eosinophils/100 WBC (Bld) 0.7 % Normal 0.0-8.0 [facility] Comment on above: Order Comment: Order Added by Discern Expert. Performed By: #### 2 598483, 38849181, 7596901, 3984521, 0768631, 2894313 #### [facility] [address] [place] [address] Eosinophils/Leukocytes Auto (Bld) [Pure # fraction] 0.1 E9/L Normal 0.0-0.5 [facility] Comment on above: Order Comment: Order Added by Discern Expert. Performed By: #### 2 362201, 87251892, 1079603, 8099163, 0047298, 8266647 #### [facility] [address] [place] [address] Lymphocytes/100 WBC (Bld) 10.5 % Low 14.0-50.0 [facility] Comment on above: Order Comment: Order Added by Discern Expert. Performed By: #### 2 798807, 52773344, 4097232, 4144527, 2690943, 3496800 #### [facility] [address] [place] [address] Lymphocytes/Leukocytes Auto (Bld) [Pure # fraction] 1.4 E9/L Normal 1.0-4.0 [facility] Comment on above: Order Comment: Order Added by Discern Expert. Performed By: #### 2 656709, 71230430, 8079561, 8884246, 4027636, 8824221 #### [facility] [address] [place] [address] Monocytes/100 WBC (Bld) 5.5 % Normal 4.0-14.0 [facility] Comment on above: Order Comment: Order Added by Discern Expert. Performed By: #### 2 281136, 65373925, 8779364, 9335679, 8695565, 4856744 #### [facility] [address] [place] [address] Monocytes/Leukocytes Auto (Bld) [Pure # fraction] 0.7 E9/L Normal 0.2-1.0 [facility] Comment on above: Order Comment: Order Added by Discern Expert. Performed By: #### 2 197381, 13306715, 0436529, 3187030, 3220513, 7053531 #### [facility] [address] [place] [address] Neutrophils/100 WBC (Bld) 82.9 % High 36.0-75.0 [facility] Comment on above: Order Comment: Order Added by Discern Expert. Performed By: #### 2 210997, 67670141, 8147664, 5888681, 5038555, 6125490 #### [facility] [address] [place] [address] Neutrophils/Leukocytes Auto (Bld) [Pure # fraction] 10.8 E9/L High 2.0-7.5 [facility] Comment on above: Order Comment: Order Added by Discern Expert. Performed By: #### 2 767339, 38817232, 5776165, 3941567, 0471171, 8957742 #### [facility] [address] [place] [address] BMPon 06-14-2023 Creatinine [Mass/Vol] 1.0 mg/dL Normal 0.5-1.3 [facility] Comment on above: Performed By: #### 2 397224, 04663616, 6891907, 5346433, 2624114, 2384918 ####[facility] [address] [place] [address] Urea nitrogen [Mass/Vol] 18 mg/dL Normal 5-21 [facility] Comment on above: Performed By: #### 2 180500, 70892614, 0752501, 8510758, 7810341, 5682823 ####[facility] [address] [place] [address] Urea nitrogen/Creatinine [Mass ratio] 18 No Units Normal 10-20 [facility] Comment on above: Performed By: #### 2 248366, 72830431, 2092099, 2469063, 2008107, 0046073 ####[facility] [address] [place] [address] Anion gap [Moles/Vol] 6 mmol/L Normal 6-16 [facility] Comment on above: Performed By: #### 2 032240, 72258961, 7259958, 4576756, 7654271, 9417308 ####[facility] [address] [place] [address] Calcium [Mass/Vol] 8.7 mg/dL Low 8.9-11.1 [facility] Comment on above: Performed By: #### 2 940659, 07471140, 6212243, 6599283, 0331330, 2046943 ####[facility] [address] [place] [address] Chloride [Moles/Vol] 105 mmol/L Normal 101-111 [facility] Comment on above: Performed By: #### 2 905302, 45021903, 6148373, 6124365, 5656606, 6876297 ####[facility] [address] [place] [address] CO2 [Moles/Vol] 30 mmol/L Normal 21-31 [facility] Comment on above: Performed By: #### 2 025789, 35570110, 6146249, 7012396, 7953891, 9502178 ####[facility] [address] [place] [address] Glucose [Mass/Vol] 135 mg/dL Normal 55-199 [facility] Comment on above: Result Comment: If t his glucose result represents a fasting glucose, interpretation should refer to the following reference range: 55-99 mg/dL Performed By: #### 2 614990, 00617979, 4941905, 1096634, 0166847, 6212165 ####[facility] [address] [place] [address] Potassium [Moles/Vol] 4.3 mmol/L Normal 3.5-5.3 [facility] Comment on above: Performed By: #### 2 209881, 11673329, 8186443, 5262882, 6042317, 9414628 ####[facility] [address] [place] [address] Sodium [Moles/Vol] 137 mmol/L Normal 135-145 [facility] Comment on above: Performed By: #### 2 248159, 39429794, 6023099, 6378201, 8266624, 9490301 ####[facility] [address] [place] [address] CBC w/ Auto Diffon 3 Erythrocyte distribution width (RBC) [Ratio] 13.7 % Normal 10.9-14.2 [facility] Comment on above: Performed By: #### 2 788017, 39112502, 5343392, 5236220, 5678550, 3287127 #### [facility] [address] [place] [address] Hematocrit (Bld) [Volume fraction] 48.0 % Normal 37.7-49.0 [facility] Comment on above: Performed By: #### 2 180562, 34568936, 3594926, 9024304, 0405556, 6691346 #### [facility] [address] [place] [address] Hemoglobin (Bld) [Mass/Vol] 16.1 g/dL Normal 13.5-17.5 [facility] Comment on above: Performed By: #### 2 393676, 96167028, 5843824, 0005493, 0206604, 6935076 #### [facility] [address] [place] [address] MCH (RBC) [Entitic mass] 29.3 pg Normal 27.0-34.0 [facility] Comment on above: Performed By: #### 2 470295, 66368492, 5875360, 1159752, 2186518, 9365441 #### [facility] [address] [place] [address] MCHC (RBC) [Mass/Vol] 33.4 g/dL Normal 31.4-36.0 [facility] Comment on above: Performed By: #### 2 774722, 86239434, 3533701, 8481452, 7811854, 6206919 #### [facility] [address] [place] [address] MCV (RBC) [Entitic vol] 87.6 fL Normal 80.0-100.0 [facility] Comment on above: Performed By: #### 2 173006, 81129377, 5039717, 1780376, 8048613, 4038975 #### [facility] [address] [place] [address] Platelet mean volume (Bld) [Entitic vol] 9.6 fL Normal 6.4-10.8 [facility] Comment on above: Performed By: #### 2 334450, 67364605, 5573668, 1303305, 9109705, 3704964 #### [facility] [address] [place] [address] Platelets (Bld) [#/Vol] 195.0 E9/L Normal 150.0-500.0 [facility] Comment on above: Performed By: #### 2 856961, 67165051, 7931898, 0539200, 5418408, 7430976 #### [facility] [address] [place] [address] RBC (Bld) [#/Vol] 5.5 E12/L Normal 4.3-5.9 [facility] Comment on above: Performed By: #### 2 693841, 98428170, 5376015, 7736108, 0331313, 0236317 #### [facility] [address] [place] [address] WBC corrected for nucl RBC Auto (Bld) [#/Vol] 13.0 E9/L High 4.0-11.0 [facility] Comment on above: Performed By: #### 2 643631, 51532890, 9400155, 0744193, 5752694, 5770417 #### [facility] [address] [place] [address] Abdomen/Pelvis w/ Contras ton 06-14-2023 CT [...] 300 Contrast amount in ml's: 100 Normal [facility] Consent for Treatmenton Consent for Treatment [id number]#1.00T IFF Normal [facility] Discharge Instructionson Discharge Instructions [id number]#1.00T IFF Normal [facility] ED Clinical Summaryon 2022 ED Clinical Summary (Inserted Image. Lynnette ble to display) [address] [address] ED Clinical Summary Person Information Name: MONTSE MARTINEZ [place] Age: 73 Years : 1950 Sex: Male Language: New Zealander PCP: SOLE DALEY DO Marital Status: Visit [...] 09:57:06 06/14/2023 09:57:06 ADDRESS: [id number] [place] [id number] [facility] DOC NOTES: MEDICAL INFORMATION: Prescriptions Given: New Medications [facility] [id number], [address] [place] [id number], [phone] tamsulosin (Flomax 0.4 mg Cap) 1 Capsules [...] Isreal DAHL [facility], [address] , [place], [place] [id number] Business (1) In 3 days 06/17/2023 Comments: Return to the emergency room if your pain gets worse, vomiting, fever or any new symptoms. With: Address: When: SOLE DALEY [address] [address] Business (1) In 3 days DIAGNOSIS: 1:Right ureteral stone; Right lower quadrant abdominal pain Normal [facility] ED Note-Physicianon 06-14-20 ED Note-Physician Basic [...] and Complexity of Problems Differential Diagnosis: [] [facility] Data External documents reviewed: N/A My EKG [...] (06/14/23 04:05:00) (more content not included)... Normal [facility] Comment on above: Result Comment: Elec [...] these instructions at home: Medicines ? Take maoz-ttj-sskbkrl and prescription medicines only as told by [...] and follow (more content not included)... Normal [facility] ED Patient Summaryon 023 ED Patient Summary (Inserted Image. Lynnette ble to display) [address] [address] Patient Discharge Instructions Person Information Name: MONTSE MARTINEZ Age: 73 Years Arrival Date: 06/14/2023 03:32:18 Discharge Diagnosis: 1:Right ureteral stone; Right lower quadrant abdominal pain Primary Care Physician: SOLE DALEY DO Provider Information Primary Provider: Justin Echeverria DO [employer] Secretary:None The exam and treatment you received in the Emergency Department were for an urgent problem and are not intended as complete care. It is important that you follow up with a doctor, nurse practitioner, or physician?s marketing assistant retail division for ongoing care. If your symptoms become worse or you do not improve as expected and you are unable to reach your usual health care provider, you should return to the Emergency Department. We are available 24 hours a day. MONTSE MARTINEZ has been given the following list of patient education materials, prescriptions and follow-up instructions: Follow-up Instructions: With: Address: When: Isreal DAHL [facility], [address] [place] [address] [facility] (1) In 3 days 06/17/2023 Comments: Return to the emergency room if your pain gets worse, vomiting, fever or any new symptoms. With: Address: When: SOLE MELÉNDEZ [address] [address] [facility] (1) In 3 days In the event that this physician does not participate in your insurance network, please consult with your insurance company to find a nearby participating provider. Patient Education Materials: Kidney Stones A MESSAGE TO ALL PATIENTS REGARDING OPIOIDS PRESCRIPTION OPIOIDS: WHAT YOU NEED TO KNOW Prescription opioids can be used to help relieve uuojsmvq-ml-trdggo pain and are often prescribed following a [...] Visit [email or web address].g (more content not included)... Normal [facility] Hep Func Panelon 06-14-2023 Bilirubin.indirect [Mass or moles/Vol] UTC Abnormal 0.1-0.9 [facility] Comment on above: Result Comment: Resu lt verified by Discern Rule. Performed result UT (Unable to Calculate) was sent as an Alpha code due the inability to calculate a valid numeric value. Performed By: #### 2 043621, 54192008, 3831663, 8571851, 1387794, 3605408 ####[facility] [address] [place] [address] Albumin [Mass/Vol] 4.6 g/dL Normal 3.3-5.0 [facility] Comment on above: Performed By: #### 2 306692, 86030567, 2570485, 4486321, 2406674, 2792174 ####[facility] [address] [place] [address] Albumin/Globulin (S) [Mass conc ratio] 1.3 Normal 1.1-2.2 [facility] Comment on above: Performed By: #### 2 055131, 76276021, 5850288, 5048378, 2299707, 3038368 ####[facility] [address] [place] [address] ALP [Catalytic activity/Vol] 76 Int._Unit/L Normal 21-98 [facility] Comment on above: Performed By: #### 2 383314, 13941129, 0534715, 2548055, 0934150, 0821312 ####[facility] [address] [place] [address] ALT No additional P-5'-P [Catalytic activity/Vol] 23 Int._Unit/L Normal 6-46 [facility] Comment on above: Performed By: #### 2 551290, 61389250, 4716739, 7072679, 6745788, 5487251 ####[facility] [address] [place] [address] AST [Catalytic activity/Vol] 24 Int._Unit/L Normal 5-43 [facility] Comment on above: Performed By: #### 2 598534, 90578624, 0914165, 2333931, 9618249, 5935627 ####[facility] [address] [place] [address] Bilirubin [Mass/Vol] 1.0 mg/dL Normal 0.0-1.1 [facility] Comment on above: Performed By: #### 2 284538, [id number], 4800719, 3551901, 1224187, 7632220 ####[address] [place] [address] Globulin (S) [Mass/Vol] 3.5 g/dL Normal 1.4-4.0 [facility] Comment on above: Performed By: #### 2 057248, [id number], 6022449, 9200648, 5957592, 1661603 ####[address] [place] [address] Protein [Mass/Vol] 8.1 g/dL High 6.0-7.8 [facility] Comment on above: Performed By: #### 2 335326, 63408056, 5607069, 1635367, 4612405, 4953876 ####[facility] [address] [place] [address] Bilirubin.direct [Mass/Vol] mg/dL Normal 0.1-0.4 [facility] Comment on above: Performed By: #### 2 287350, 91985925, 4145753, 4528861, 6315251, 3322235 ####[facility] [address] [place] [address] Lipase Levelon 06-14-2023 Lipase [Catalytic activity/Vol] 37 U/L Normal 13-58 [facility] Comment on above: Performed By: #### 2 729333, 29046222, 9628137, 1543719, 7980448, 9777197 #### [facility] [address] [place] [address] UA With Cult Reflexon 2022 Bilirubin Ql (U) Negative Normal Negative [facility] Comment on above: Performed By: #### 1 [id number] ####[facility] [address] [place] [address] Clarity (U) CLEAR Normal Clear [facility] Comment on above: Performed By: #### 1 3009545 ####[address] [place] [address] Color (U) YELLOW Normal Yellow [facility] Comment on above: Performed By: #### 1 9238782 ####[facility] [address] [place] [address] Epithelial cells.squamous LM.HPF (Urine sed) [#/Area] 0-2 Normal 0-2 [facility] Comment on above: Performed By: #### 1 [id number] ####[facility] [address] [place] [address] Glucose Test strip (U) [Mass/Vol] Negative Normal Negative [facility] Comment on above: Performed By: #### 1 0194472 ####[facility] [address] [place] [address] Hemoglobin Ql (U) 2+ Abnormal Negative [facility] Comment on above: Performed By: #### 1 2979557 ####[address] [place] [address] Ketones (U) [Mass/Vol] Negative Normal Negative [facility] Comment on above: Performed By: #### 1 6079948 ####[address] [address] [place].plasma/[place] .RBC (Bld) [Mass ratio] 4-20 Normal 0-3 [facility] Comment on above: Performed By: #### 1 2721680 ####[facility] [address] [place] [address] Nitrite Ql (U) Negative Normal Negative [facility] Comment on above: Performed By: #### 1 0449603 ####[address] [address] pH (U) 6.0 [pH] Invalid Interpretation Code 5.0-9.0 [facility] Comment on above: Performed By: #### 1 9480038 ####[address] [address] Protein (U) [Mass/Vol] Negative Normal Negative [facility] Comment on above: Performed By: #### 1 3823018 ####[address] [address] Specific gravity (U) [Rel density] 1.020 Invalid Interpretation Code 1.005-1.030 [facility] Comment on above: Performed By: #### 1 2004277 ####[address] [address] Type of Urine collection method Clean Catch Normal [facility] Comment on above: Performed By: #### 1 2488979 ####[address] [address] Urobilinogen Qn (U) 0.2 {Anthony'U}/dL Normal 0.0-1.0 [facility] Comment on above: Performed By: #### 1 6724207 ####[facility] [address] [place] [address] WBC Auto Ql (U) Negative Normal Negative [facility] Comment on above: Performed By: #### 1 3257092 ####[address] [address] WBC LM.HPF (Urine sed) [#/Area] 0-5 Normal 0-5 [facility] Comment on above: Performed By: #### 1 9111778 ####[facility] [address] [place] [address] eGFRon 06-14-2023 GFR/1.73 sq M.predicted among non-blacks MDRD (S/P/Bld) [Vol rate/Area] 80 mL/min/1.73 m2 Normal >=59 [facility] Comment on above: Order Comment: Order added by Discern Expert. Result Comment: Door Operator bharathi kidney disease could be indicated at eGFR's of less than 60 mL/min/1.73m2. Kidney failure is indicated at less than 15 mL/min/1.73m2. Performed By: #### 2 676956, 77018737, 1193067, 8761755, 9757883, 8845622 ####[facility] [address] [place] [address] Screenson 06-11-2023 Screens [id number] CD:127 Normal [facility] Ambulatory Visit Summaryon 1 Ambulatory Visit Summary MONTSE MARTINEZ Marya :1950 Visit Date:06/10/2023 Ambulatory Visit Instructions Your Diagnosis BPH with urinary obstruction Gross hematuria Incomplete bladder emptying Tests Performed Urnls Dip Stick Auto w/o Microscopy POC 61945 Your Care Team Attending Physician - Carlos [...] Carlos Enrique Falk Where: [facility] Micky Adkins [facility] Patient Educationon 06-10-20 Patient Education Urology [...] Follow these instructions at home: ? Take xard-lpu-ljijyma and prescription medicines only as told by [...] medicine (more content not included)... Normal Rodas [facility] Urology Office/Clinic Noteon 06-10-2023 Urology Office/Clinic Note Chief Complaint 3 month F/U with PVR HPI Staff 3 mos f/u w/PVR Previous DX:BPH w/Urinary Obstruction, Gross Hematuria, and Incomplete Bladder Emptying. 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 Lewis on 06/10/2023 1 (more content not included)... Normal [facility] Comment on above: Result Comment: Elec [...] Urnls Dip Stick Auto w/o Microscopy POC 11637 Your Care Team Attending Physician - Carlos [...] Carlos Enrique Falk Where: [facility] Patient Educationon 04-07-20 Patient Education Urology Benign [...] Follow these instructions at home: ? Take rsbm-xrh-yqexqfq and prescription medicines only as told by [...] the medicine (more content not included)... Normal [facility] Screenson 04-07-2023 Screens [id number]#1.00C D:127 Normal [facility] Urology Office/Clinic Noteon 04-07-2023 Urology Office/Clinic [...] MD, URL [address] [address]- Additional Instructions: 3 mos with [...] with voice recognition artificial intelligence software, specifically Ultora, Udex and or MobiliBuy. Substitutions may have occurred due to the [...] of umbilica (more content not included)... Normal [facility] Comment on above: Result Comment: Elec [...] Enrique LEWIS MD Where: [facility] Consent for Procedure/Surger yon 03-24-2023 Consent for Procedure/Surgery [id number] D:127 Normal [facility] Consent for Treatmenton 03-08 Consent for Treatment [id number] D:127 [facility] Inpatient Patient Summaryon 03-24-2023 Inpatient Patient Summary [id number] Clinical Summary Person Information Name: MONTSE MARTINEZ Age: 72 Years : 1950 Sex: Male PCP: SOLE DALEY DO Marital Status: Race: White Ethnicity: Non- or Language: New Zealander Visit Id: Visit Reason: BPH WITH LUTS Speciality: Acuity: Enc Type: Outpatient Med Service: Surgery Arrival: 03/24/2023 13:28:30 Discharge: Dispo Type: Address: [address] [place] [id number] Provider Notes: Diagnosis: Problems Active BPH with [...] Carlos Enrique LEWIS [address], [address], [facility] [address] [place] [address] Business (1) Within 1 week Comments: Call for followup appointment to remove the catheter. Push fluids to keep the urine clear. Patient Education Information: EU - Urolift Discharge Instructions (Custom) [facility] IntraOperative Documentson 0 03-24-2023 IntraOperative Documents [id number] D:127 [facility] Main OR Intraoperative Recor don 03-24-2023 Main OR Intraoperative Record IntraOp Document Type FTURO Summary Primary Physician: Carlos Enrique LEWIS MD Finalized Date/Time: 03/24/23 15:46:59 Pt. Name: MONTSE MARTINEZ/Sex: 1950 Male Med Rec #: [id number] Physician: Carlos Enrique LEWIS MD Financial #: [id number] Pt. 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 Name: MONTSE MARTINEZ/Sex: 1950 Male Med Rec #: [id number] Physician: Carlos Enrique LEWIS MD Financial #: [id number] Pt. 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 . Intraoperative Information Prepped: Patient received 1 hour prior to procedure (10 mg diazepam, 5/325 mg of [place]), Local Anesthesia (60cc 2% Xylocaine liquid inserted [...] removal and voiding trial. . Normal Rodas [facility] Comment on above: Result Comment: Elec tronically Signed By: Carlos Enrique LEWIS MD\.br\Date and Time Signed: 03/24/23 15:32 EDT Outpatient Surgery Discharge Instructionon 03-24-2023 Outpatient Surgery Discharge Instruction [address] [address] Patient Discharge Instructions PERSON INFORMATION Name: MONTSE [...] up: With: Address: When: Carlos Enrique LEWIS [address] [place] [address], [address], [address] [address] Business (1) Within 1 week [...] facility personnel to use a Coude (pronounced candy cooker helper-day) tipped catheter. I, MONTSE MARTINEZ, have received the attached patient education materials/instructions and have verbalized understanding: May we do a follow up call? Yes No I was present when discharge instructions were given Patient Signature Date Clinican/Nurse Signature (more content not included)... Normal [facility] Consent for Procedure/Surger yon 03-05-2023 Consent for Procedure/Surgery [id number] D:127 [facility] Ambulatory Visit Summaryon 0 03-04-2023 Ambulatory Visit [...] BRANDEN ELIZALDE, MAX Ha When: Where: [email or web address] [place], [place] [id number]- Medications What How Much When Instructions Unchanged [...] a lubric (more content not included)... Normal [facility] Consenton 03-04-2023 Consent [id number] D:127 Normal [facility] Patient Educationon 03-04-20 23 Patient Education [...] Follow these instructions at home: ? Take vtph-rcs-heavgxc and prescription medicines only as told by [...] the medicine (more content not included)... Normal [facility] Urology Office/Clinic Noteon 03-04-2023 Urology Office/Clinic [...] plan. The usual prescriptions are sent, including [place], Ultracet, and antibiotic coverage. Portions of this record may have been created with voice recognition artificial intelligence software, specifically Ultora, Udex and or MobiliBuy. Substitutions may have occurred due to the inherent limitations of voice recognition and artificial intelligence software. Follow-up With When Contact Information Carlos Enrique LEWIS MD, URL [email or web address] [address]- Additional Instructions: schedule urolift Patient [...] cholesterol Hypercholesterolem (more content not included)... Normal [facility] Comment on above: Result Comment: Elec tronically Signed By: Carlos Enrique LEWIS MD\.br\Date and Time Signed: 03/04/23 07:49 EDT\.br\Electronically Co-Signed By: Ibis Puente\.br\Date and Time Co-Signed: 03/04/23 07:43 EDT Basic Metabolic Panelon 06-2 Anion gap [Moles/Vol] 9.2 mmol/L Normal 6.0-15.0 [facility] Comment on above: Order Comment: NOT F ASTING JKW Performed By: #### B MP #### [facility] [address] Calcium [Mass/Vol] 8.9 mg/dL Normal 8.6-10.3 [facility] Comment on above: Order Comment: NOT F ASTING JKW Result Comment: PERF ORMED BY: [address] [place] [address] PATHOLOGIST COMMUNICATIONS CONTROLLER SU DOSS M.D. Performed By: #### B MP #### [facility] [address] Chloride [Moles/Vol] 104 mmol/L Normal 98-107 [facility] Comment on above: Order Comment: NOT F ASTING JKW Performed By: #### B MP #### [facility] [address] CO2 [Moles/Vol] 30.6 mmol/L Normal 21.0-31.0 [facility] Comment on above: Order Comment: NOT F ASTING JKW Performed By: #### B MP #### [facility] [address] Creatinine [Mass/Vol] 0.97 mg/dL Normal 0.70-1.30 [facility] Comment on above: Order Comment: NOT F ASTING JKW Performed By: #### B MP #### [facility] [address] [place] [address] [place] GFR/1.73 sq M.predicted MDRD (S/P/Bld) [Vol rate/Area] mL/min/{1.73_m2} Normal [facility] Comment on above: Order Comment: NOT F ASTING JKW Performed By: #### B MP #### [address] Glucose [Mass/Vol] 101 mg/dL High 70-100 [facility] Comment on above: Order Comment: NOT F ASTING JKW Result Comment: [place] Glucose Reference Range is dependent on time and content of last meal. Glucose of more than 200 mg/dL in a nonstressed, ambulatory subject supports the diagnosis of Diabetes Mellitus. ADA recommended reference range Performed By: #### B MP #### [facility] [address] Potassium [Moles/Vol] 4.8 mmol/L Normal 3.5-5.1 [facility] Comment on above: Order Comment: NOT F ASTING JKW Performed By: #### B MP #### [address] Sodium [Moles/Vol] 139 mmol/L Normal 136-145 [facility] Comment on above: Order Comment: NOT F ASTING JKW Performed By: #### B MP #### [address] Urea nitrogen [Mass/Vol] 17 mg/dL Normal 7-25 [facility] Comment on above: Order Comment: NOT F ASTING JKW Performed By: #### B MP #### [address] Formson 02-17-2023 Forms [id number] CD:127 Normal [facility] Patient Educationon 02-18-20 23 Patient Education [...] Follow these instructions at home: ? Take qhmq-oyf-odzkfun and prescription medicines only as told by [...] the medicine (more content not included)... Normal [facility] Screenson 02-17-2023 Screens [id number] D:127 Normal [facility] Urology Office/Clinic Noteon 02-17-2023 Urology Office/Clinic [...] 02/13/2010 Tob (more content not included)... Normal [facility] Comment on above: Result Comment: Elec tronically Signed By: Carlos Enrique LEWIS MD\.br\Date and Time Signed: 02/17/23 10:56 EDT\.br\Electronically Co-Signed By: Reina Mariscal\.br\Date and Time Co-Signed: 02/17/23 10:54 EDT KYLEOVon 02-07-2023 CNOV Office Visit (CARDLO ) MONTSE MARTINEZ ([id number]) 1950 M Date Time Provider Department 02/07/23 9:00 AM LEV PRICE During your visit today, we recorded the following information about you: Pulse Blood pressure Weight 59/minute 142/80 87.1 kg Lev Price DO 02/07/2023 9:12 AM Signed [facility] SECTION OF REGIONAL CARDIOLOGY OUTPATIENT VISIT DATE February 07, 2023 OUTPATIENT VISIT TYPE ESTABLISHED PRIMARY CARE PHYSICIAN: Sole Daley [address] [place] [address] [address] [place] [address] CHIEF COMPLAINT: Arrhythmia HISTORY OF PRESENT ILLNESS: [...] had an enlarged heart. Brother had an NE when he was 72 years of age. 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 Upon further questioning IMPRESSION: Encounter Diagnosis ICD-10-CM [...] tab Take by mouth q 12 HR. Breckenridge-3 Fatty Acids 500 mg cap Take 500 mg by mouth once daily. imxqaoh-oevp-gjhlb-oreg -capryl 100 mg-150 mg- 50 mg-150 mg cap Take by mouth. cholecalciferol, vitamin D3, 350 mcg (14,000 unit) cap Take by mouth. rosuvastatin (CRESTOR) 20 mg tablet Take 1 tablet by mouth daily at bedtime. SAW PALMETTO ORAL Take by mouth twice d (more content not included)... Normal [facility] Lipid Panelon 01-28-2023 Cholesterol [Mass/Vol] 159 mg/dL Normal 140-200 [facility] Comment on above: Order Comment: PT IS FASTING Result Comment: Chol less than 200 mg/dl low risk Chol 201-239 mg/dl borderline risk Chol 240 mg/dl and greater high risk Performed By: #### L IPID #### [facility] [address] [place] [id number] [place] Cholesterol in HDL [Mass/Vol] 51 mg/dL Normal 29-71 [facility] Comment on above: Order Comment: PT IS FASTING Result Comment: HDL CHOL ATP-III CLASSIFICATION Cardiovascular Risk HDL > or equal to 60 mg/dL LOW HDL < 40 mg/dL HIGH Performed By: #### L IPID #### [facility] [address] [place] [address] [place] Cholesterol.total/Chol esterol in HDL [Mass ratio] 3.1 {ratio} Normal <5.0 [facility] Comment on above: Order Comment: PT IS FASTING Result Comment: PERF ORMED BY: [place] [address] PATHOLOGIST COMMUNICATIONS CONTROLLER SU DOSS M.D. Performed By: #### L IPID #### [address] LDL Cholesterol,Calculated 83 mg/dL Normal 0-100 [facility] Comment on above: Order Comment: PT IS FASTING Result Comment: LDL ATP III CLASSIFICATION LDL less than 100 mg/dL Optimal LDL 100-129 mg/dL Near or above optimal LDL 130-159 mg/dL Borderline high LDL 160-189 mg/dL High LDL greater than 189 mg/dL Very high Performed By: #### L IPID #### [address] Triglyceride w/Reflex 127 mg/dL Normal 0-149 [facility] Comment on above: Order Comment: PT IS FASTING Result Comment: TRIG ATP III CLASSIFICATION TRIG less than 150 mg/dL Normal TRIG 150-199 mg/dL Borderline high TRIG 200-500 mg/dL High TRIG greater than 500 mg/dL Very high Standard traceable to the Center for Disease Conrtrol and Prevention (CDC) test method. Performed By: #### L IPID #### [address] VLDL CHOLESTEROL 25 mg/dL Normal [facility] Comment on above: Order Comment: PT IS FASTING Performed By: #### L IPID #### [address] CNPAsmita 01-27-2023 CNPN Telephone (4CQ) MONTSE MARTINEZ ([id number]) 1950 M Date Time Provider Department 01/27/23 LEV PRICE 4CQ During your visit today, we recorded the following information about you: Samuel Javierdows 01/27/2023 11:15 AM Signed Montse Martinez is calling Lev Price DO today asking if labs can be faxed to [facility]. Patient is unsure what the fax number is. Please call them to find out. Ph.[phone] No chief complaint on file. Patient has been identified by name and birthdate. Duration of symptoms: N/A Person calling: self Call patient at: at home [phone] (home) [phone] (cell) Was an appointment scheduled: No Closing statement: Results or non-symptom based questions: Thank you for calling [facility], your call will be returned within the next business day. Samuel Howard MA 01/27/2023 11:51 AM Signed I called [facility] for lab's fax number. I was given [phone]. I faxed over lab order and received confirmation. I also called patient and made him aware that I faxed lab order to [facility] Allergies As of Date: 01/27/2023 Noted Allergy [...] Take by mouth q 12 HR. - Breckenridge-3 Fatty Acids 500 mg cap Take 500 mg by mouth once daily. - wqqhiqy-hfzx-xnmqz-oreg -capryl 100 mg-150 mg- 50 mg-150 mg [...] Encounter Status:Closed by NIGEL HOWARD on 01/27/23 [facility] 12-23-2022 NIKON Telephone (JENNIFER) MONTSE MARTINEZ ([id number]) 1950 Date Time Provider Department 12/23/22 LEV [...] Fatemeh Harman RN 12/23/2022 11:37 AM Signed [employer] message sent. Allergies As of Date: 12/23/2022 [...] Take by mouth q 12 HR. - Breckenridge-3 Fatty Acids 500 mg cap Take 500 mg by mouth once daily. - xyvabph-wdre-ybwgd-oreg -capryl 100 mg-150 mg- 50 mg-150 mg [...] Encounter Status:Closed by FATEMEH HARMAN on 12/23/22 [facility] CNOVreji 11-29-2022 CNKRIS Office Visit (JENNIFER ) MONTSE MARTINEZ ([id number]) 1950 M Date Time Provider Department 11/29/22 8:30 AM LEV PRICE During your visit today, we recorded the following information about you: Pulse Blood pressure Weight Height 65/minute 151/93 88 kg 1.753 m Lev Price DO 11/29/2022 9:21 AM Signed [facility] [place] SECTION OF REGIONAL CARDIOLOGY OUTPATIENT VISIT DATE November 29, 2022 OUTPATIENT VISIT TYPE ESTABLISHED PRIMARY CARE PHYSICIAN: Sole Daley [address] [place] [address] CHIEF COMPLAINT: Arrhythmia HISTORY OF PRESENT ILLNESS: [...] had an enlarged heart. Brother had an NE when he was 72 years of age. 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 Upon further questioning IMPRESSION: Encounter Diagnosis ICD-10-CM [...] tab Take by mouth q 12 HR. Breckenridge-3 Fatty Acids 500 mg cap Take 500 mg by alcon (more content not included)... Normal [facility] ECG COMPLETEon 11-29-2022 ECG COMPLETE Ventricular Rate : 6 0 BPM Atrial Rate : 60 BPM P-R Interval : 188 ms QRS Duration : 104 ms Q-T Interval : 402 ms QTC Calculation(Bazett) : 402 ms Calculated P Wilton : 71 degrees Calculated R Wilton : 59 degrees Calculated T Wilton : 45 degrees NORMAL SINUS RHYTHM NORMAL ECG Confirmed by MARLYN STOUT MD ([id number]) on 11/29/2022 1:42:59 PM NAME : MONTSE MARTINEZ PID : [id number] : 1950 Gender : Male Race : ORD : [id number] Procedure Date : Nov 29 2022 08:24:42 Edit Date : Nov 29 2022 13:43:00 Diagnosis: NORMAL SINUS RHYTHM NORMAL ECG Confirmed by MARLYN STOUT MD ([id number]) on 11/29/2022 1:42:59 PM Test Reason : Location : 145 : LOCARD Overread By : MARLYN STOUT MD Edited By : MARLYN STOUT MD Referred By : LEV PRICE Acquired by : , Normal [facility] Basophils Auto (Bld) [#/Vol] Ordered By: Sole Daley on 07-20-2022 Basophils (Bld) [#/Vol] 0.0 10*3/uL 0.0-0.2 [facility] Basophils/100 WBC Auto (Bld) Ordered By: Sole Daley on 07-20-2022 Basophils/100 WBC (Bld) 0.6 % . [facility] Body fluid albumin measureme nt (mass/volume)Ordered By: Sole Daley on 07-20-2022 Albumin (Body fld) [Mass/Vol] 3.8 g/dL 3.2-5.5 [facility] Cholesterol [Mass/volume] in Serum or PlasmaOrdered By: Sole Daley on 07-20-2022 Cholesterol [Mass/Vol] 179 mg/dL 140-200 [facility] Comment on above: Chol less than 200 m g/dl low riskChol 201-239 mg/dl borderline riskChol 240 mg/dl and greater high risk Cholesterol in LDL Calc [Mas s/Vol]Ordered By: Sole Daley on 07-20-2022 Cholesterol in LDL [Mass/Vol] 112 mg/dL 0-100 [facility] [place] Comment on above: LDL ATP III CLASSIFI CATIONLDL less than 100 mg/dL OptimalLDL 100-129 mg/dL Near or above optimalLDL 130-159 mg/dL Borderline highLDL 160-189 mg/dL HighLDL greater than 189 mg/dL Very high Cholesterol in VLDL Calc [Ma ss/Vol]Ordered By: Sole Daley on 07-20-2022 Cholesterol in VLDL [Mass/Vol] 17 mg/dL [facility] [place] Creatinine and Glomerular fi ltration rate.predicted panel (S/P/Bld)Ordered By: Sole Daley on 07-20-2022 Creatinine [Mass/Vol] 0.92 mg/dL 0.64-1.27 [facility] Eosinophils Auto (Bld) [#/Vo l]Ordered By: Sole Daley on 07-20-2022 Eosinophils (Bld) [#/Vol] 0.3 10*3/uL 0.0-0.45 [facility] [place] Eosinophils/100 WBC Auto (Bl d)Ordered By: Sole Daley on 07-20-2022 Eosinophils/100 WBC (Bld) 5.7 % . [facility] [place] Erythrocyte distribution wid th Auto (RBC) [Ratio]Ordered By: Sole Daley on 07-20-2022 Erythrocyte distribution width (RBC) [Ratio] 13.6 % 12.0-14.8 [facility] [place] Estimated glomerular filtrat ion rate (GFR) non- AmericanOrdered By: Sole Daley on 07-20-2022 GFR/1.73 sq M.predicted among non-blacks MDRD (S/P/Bld) [Vol rate/Area] > 60 mL/Min [facility] [place] Globulin Calc (S) [Mass/Vol] Ordered By: Sole Daley on 07-20-2022 Globulin (S) [Mass/Vol] 2.6 g/dL [facility] [place] Glucose mean value [Mass/vol ume] in Blood Estimated from glycated hemoglobinOrdered By: Sole Daley on 07-20-2022 Average glucose Estimated from glycated hemoglobin (Bld) [Mass/Vol] 131 mg/dL [facility] [place] Hematocrit Auto (Bld) [Volum e fraction]Ordered By: Sole Daley on 07-20-2022 Hematocrit (Bld) [Volume fraction] 43.2 % 38.8-50.0 [facility] [place] Hemoglobin A1c percentageOrd ered By: Sole Daley on 07-20-2022 HbA1c (Bld) [Mass fraction] 6.2 % 4.3-5.6 [facility] [place] Comment on above: Increased risk for d iabetes: 5.7 - 6.4diabetes: >6.4glycemic control for adults with diabetes: <7.0 Hemoglobin [Mass/volume] in BloodOrdered By: Sole Daley on 07-20-2022 Hemoglobin (Bld) [Mass/Vol] 14.6 g/dL 13.0-17.0 [facility] [place] Laboratory - Hematology and Cell countsOrdered By: Sole Daley on 07-20-2022 Nucleated RBC/100 WBC (Bld) [Ratio] 0.0 % 0-0.5 [facility] [place] Leukocytes [#/volume] in Blo od by Automated countOrdered By: Sole Daley on 07-20-2022 WBC (Bld) [#/Vol] 5.9 10*3/uL 4.5-11.0 [facility] Lymphocytes Auto (Bld) [#/Vo l]Ordered By: Sole Daley on 07-20-2022 Lymphocytes (Bld) [#/Vol] 1.7 10*3/uL 1.00-4.8 [facility] [place] Lymphocytes/100 WBC Auto (Bl d)Ordered By: Sole Daley on 07-20-2022 Lymphocytes/100 WBC (Bld) 28.1 % . [facility] [place] MCH Auto (RBC) [Entitic mass ]Ordered By: Sole Daley on 07-20-2022 MCH (RBC) [Entitic mass] 30.0 pg 27.5-35.2 [facility] [place] MCHC Auto (RBC) [Mass/Vol]Or dered By: Sole Daley on 07-20-2022 MCHC (RBC) [Mass/Vol] 33.9 g/dL 32.5-35.6 [facility] MCV Auto (RBC) [Entitic vol] Ordered By: Sole Daley on 07-20-2022 MCV (RBC) [Entitic vol] 88.3 fL 83.5-101 [facility] [place] Monocytes Auto (Bld) [#/Vol] Ordered By: Sole Daley on 07-20-2022 Monocytes (Bld) [#/Vol] 0.6 10*3/uL 0.0-0.8 [facility] [place] Monocytes/100 WBC Auto (Bld) Ordered By: Sole Daley on 07-20-2022 Monocytes/100 WBC (Bld) 10.4 % . [facility] [place] Neutrophils Auto (Bld) [#/Vo l]Ordered By: Sole Daley on 07-20-2022 Neutrophils (Bld) [#/Vol] 3.3 10*3/uL 1.8-7.7 [facility] [place] Neutrophils/100 WBC Auto (Bl d)Ordered By: Sole Daley on 07-20-2022 Neutrophils/100 WBC (Bld) 55.2 % . [facility] [place] No Panel InformationOrdered By: Sole Daley on 07-20-2022 Estimated GFR () > 60 mL/Min [facility] [place] Comment on above: GFR estimated refere nce range: According to KDOQI guidelines, <60 ml/min/1.73m2 is sufficient to diagnose a patient with chronic kidney disease. Pharmacy Creatinine Clearance (Chem N/A [facility] [place] Prostate Specific Antigen Screen 3.470 ng/mL 0.000-4.000 [facility] [place] Platelet mean volume Auto (B ld) [Entitic vol]Ordered By: Sole Daley on 07-20-2022 Platelet mean volume (Bld) [Entitic vol] 9.0 fL 6.6-10.1 [facility] [place] Platelets Auto (Bld) [#/Vol] Ordered By: Sole Daley on 07-20-2022 Platelets (Bld) [#/Vol] 224 10*3/uL 150-450 [facility] [place] Protein [Mass/volume] in Ser um or PlasmaOrdered By: Sole Daley on 07-20-2022 Protein [Mass/Vol] 6.4 g/dL 6.1-7.9 [facility] RBC Auto (Bld) [#/Vol]Ordere d By: Sole Daley on 07-20-2022 RBC (Bld) [#/Vol] 4.89 10*6/uL 3.90-5.60 [facility] Serum or plasma alanine bullock otransferase measurement without P-5'-P (enzymatic activiOrdered By: Sole Daley on 07-20-2022 ALT No additional P-5'-P [Catalytic activity/Vol] 20 U/L 10-60 [facility] [place] Serum or plasma albumin/glob ulin mass ratioOrdered By: Sole Daley on 07-20-2022 Albumin/Globulin [Mass ratio] 1.5 {ratio} [facility] [place] Serum or plasma alkaline gaurav sphatase measurement (enzymatic activity/volume)Ordered By: Sole Daley on 07-20-2022 ALP [Catalytic activity/Vol] 71 U/L 32-92 [facility] [place] Serum or plasma anion gap de terminationOrdered By: Sole Daley on 07-20-2022 Anion gap [Moles/Vol] 10.8 mmol/L 6.0-15.0 [facility] Serum or plasma aspartate am inotransferase measurement (enzymatic activity/volume)Ordered By: Sole Daley on 07-20-2022 AST [Catalytic activity/Vol] 21 U/L 10-42 [facility] [place] Serum or plasma calcium yumiko urement (mass/volume)Ordered By: Sole Daley on 07-20-2022 Calcium [Mass/Vol] 9.2 mg/dL 8.2-10.2 [facility] Serum or plasma chloride sarah surement (moles/volume)Ordered By: Sole Daley on 07-20-2022 Chloride [Moles/Vol] 104 mmol/L 95-114 [facility] Serum or plasma glucose yumiko urement (mass/volume)Ordered By: Sole Daley on 07-20-2022 Glucose [Mass/Vol] 107 mg/dL 70-100 [facility] Comment on above: ADA recommended refe rence rangeRandom Glucose Reference Range is dependent on time and content of last meal. Glucose of more than 200 mg/dL in a nonstressed, ambulatory subject supports the diagnosis of Diabetes Mellitus. Serum or plasma high density lipoprotein (HDL) cholesterol measurementOrdered By: Sole Daley on 07-20-2022 Cholesterol in HDL [Mass/Vol] 50 mg/dL 29-71 [facility] [place] Comment on above: HDL CHOL ATP-III CLA SSIFICATION Cardiovascular RiskHDL > or equal to 60 mg/dL LOWHDL < 40 mg/dL HIGH Serum or plasma potassium me asurement (moles/volume)Ordered By: Sole Daley on 07-20-2022 Potassium [Moles/Vol] 4.4 mmol/L 3.5-5.1 [facility] Serum or plasma sodium measu rement (moles/volume)Ordered By: Sole Daley on 07-20-2022 Sodium [Moles/Vol] 140 mmol/L 136-146 [facility] Serum or plasma total biliru bin measurement (mass/volume)Ordered By: Sole Daley on 07-20-2022 Bilirubin [Mass/Vol] 0.9 mg/dL 0.3-1.2 [facility] Serum or plasma total carbon dioxide measurement (moles/volume)Ordered By: Sole Daley on 07-20-2022 CO2 [Moles/Vol] 29.6 mmol/L 22.0-30.0 [facility] Serum or plasma total choles terol/high density lipoprotein (HDL) cholesterol mass ratOrdered By: Sole Daley on 07-20-2022 Cholesterol.total/Chol esterol in HDL [Mass ratio] 3.6 {ratio} <5.0 [facility] [place] Serum or plasma urea nitroge n measurement (mass/volume)Ordered By: Sole Daley on 07-20-2022 Urea nitrogen [Mass/Vol] 10 mg/dL 9-23 [facility] [place] Triglyceride [Mass/volume] i n Serum or PlasmaOrdered By: Sole Daley on 07-20-2022 Triglyceride [Mass/Vol] 85 mg/dL 35-149 [facility] [place] Comment on above: TRIG ATP III CLASSIF ICATIONTRIG less than 150 mg/dL NormalTRIG 150-199 mg/dL Borderline highTRIG 200-500 mg/dL High TRIG greater than 500 mg/dL Very highStandard traceable to the Center for Disease Conrtrol and Prevention (CDC) test method. ECG COMPLETEon 05-08-2022 Atrial Rate 56 BPM [facility] Calculated R [place] 60 degrees [facility] Calculated T [place] 45 degrees [facility] QRS Duration 96 ms [facility] QT Interval 424 ms [facility] QTC Calculation (Bazett) 409 ms [facility] Ventricular Rate 56 BPM [facility] SARS-CoV-2 (COVID-19) RNA NA A+probe Ql (Resp)on 04-08-2022 SARS-CoV-2 (COVID-19) RNA EMPERATRIZ+probe Ql (Unsp spec) Positive [facility] Other Vital Signs Date Time Vital Sign Value Performing Clinician Facility 09-16-2023 06:20-0500 Diastolic blood pressure 92 mm[Hg] Kaylinn Dokken [facility] 09-16-2023 06:20-0500 Heart rate 68 /min 29Westylinn Dokken [facility] 09-16-2023 06:20-0500 Mean blood pressure 109 mm[Hg] Kaylinn Dokken [facility] 09-16-2023 06:20-0500 Respiratory rate 18 /min Kaylinn Dokken [facility] 09-16-2023 06:20-0500 SaO2% (BldA) [Mass fraction] 98 % Kaylinn Dokken [facility] 09-16-2023 06:20-0500 Systolic blood pressure 143 mm[Hg] Kaylinn Dokken [facility] 09-16-2023 05:55-0500 Diastolic blood pressure 91 mm[Hg] Kaylinn Dokken [facility] 09-16-2023 05:55-0500 Heart rate 57 /min Kaylinn Dokken [facility] 09-16-2023 05:55-0500 Mean blood pressure 108 mm[Hg] Kaylinn Dokken [facility] 09-16-2023 05:55-0500 Respiratory rate 16 /min Kaylinn Dokken [facility] 09-16-2023 05:55-0500 SaO2% (BldA) [Mass fraction] 98 % Kaylinn Dokken [facility] 09-16-2023 05:55-0500 Systolic blood pressure 143 mm[Hg] Kaylinn Dokken [facility] 09-16-2023 05:21-0500 Diastolic blood pressure 93 mm[Hg] Kaylinn Dokken [facility] 09-16-2023 05:21-0500 Heart rate 62 /min Kaylinn Dokken [facility] 09-16-2023 05:21-0500 Mean blood pressure 112 mm[Hg] Kaylinn Dokken [facility] 09-16-2023 05:21-0500 Respiratory rate 18 /min Kaylinn Dokken [facility] 09-16-2023 05:21-0500 SaO2% (BldA) [Mass fraction] 97 % Kaylinn Dokken [facility] 09-16-2023 05:21-0500 Systolic blood pressure 151 mm[Hg] Kaylinn Dokken [facility] 09-16-2023 03:51-0500 Body temperature 97.52 [degF] Skylar Wright [facility] 09-16-2023 03:51-0500 Heart rate 66 /min Skylar Wright [facility] 07-23-2023 14:30-0500 Body height 172.72 cm Sole Edi Other [facility] Other 07-23-2023 14:30-0500 Body mass index (BMI) [Ratio] 28.43 kg/m2 Sole Edi Other [facility] Other 07-23-2023 14:30-0500 Body temperature 98.4 [degF] Sole Edi Other [facility] Other 07-23-2023 14:30-0500 Body weight 84.82 kg Sole Edi Other [facility] Other 07-23-2023 14:30-0500 Diastolic blood pressure 74 mm[Hg] Sole Edi Other [facility] Other 07-23-2023 14:30-0500 Respiratory rate 20 /min Sole Edi Other [facility] Other 07-23-2023 14:30-0500 SaO2% (BldA) [Mass fraction] 97 % Sole Edi Other [facility] Other 07-23-2023 14:30-0500 Systolic blood pressure 102 mm[Hg] Sole Edi Other [facility] Other 06-10-2023 09:57-0400 Blood Pressure Location Carlos Enrique COOK [facility] 06-10-2023 09:57-0400 Body temperature 97.88 [degF] Carlos Enrique COOK [facility] 06-10-2023 09:57-0400 Diastolic blood pressure 82 mm[Hg] Carlos Enrique COOK [facility] 06-10-2023 09:57-0400 Heart rate 78 /min Carlos Enrique COOK [facility] 06-10-2023 09:57-0400 Systolic blood pressure 124 mm[Hg] Carlos Enrique COOK [facility] 04-07-2023 10:21-0400 Blood Pressure Location Carlos Enrique COOK [facility] 04-07-2023 10:21-0400 Diastolic blood pressure 86 mm[Hg] Carlos Enrique COOK [facility] 04-07-2023 10:21-0400 Heart rate 61 /min Carlos Enrique COOK [facility] 04-07-2023 10:21-0400 Systolic blood pressure 128 mm[Hg] Carlos Enrique COOK [facility] 03-04-2023 07:40-0400 Blood Pressure Location Carlos Enrique COOK [facility] 03-04-2023 07:40-0400 Diastolic blood pressure 84 mm[Hg] Carlos Enrique COOK [facility] 06-27-2023 07:40-0400 Heart rate 91 /min Carlos Enrique [employer] [facility] 03-04-2023 07:40-0400 Respiratory rate 16 /min Carlos Enrique [employer] [facility] 03-04-2023 07:40-0400 Systolic blood pressure 136 mm[Hg] Carlos Enrique COOK [facility] 02-17-2023 09:50-0400 Blood Pressure Location Carlos Enrique [employer] [facility] 02-17-2023 09:50-0400 Diastolic blood pressure 93 mm[Hg] Carlos Enrique [employer] [facility] 02-17-2023 09:50-0400 Heart rate 54 /min Carlos Enrique [employer] [facility] 02-17-2023 09:50-0400 Systolic blood pressure 151 mm[Hg] Carlos Enrique [employer] [facility] 02-07-2023 08:42-0400 Body weight 87.09 kg Lev Price DO Work Phone: [facility] 02-07-2023 08:42-0400 Diastolic blood pressure 80 mm[Hg] Lev Dee DO Work Phone: [facility] 02-07-2023 08:42-0400 Heart rate 59 /min Lev Dee DO Work Phone: [facility] 02-07-2023 08:42-0400 SaO2% (BldA) [Mass fraction] 98 % Lev Dee DO Work Phone: [facility] 02-07-2023 08:42-0400 Systolic blood pressure 142 mm[Hg] Lev Price DO Work Phone: [facility] 11-29-2022 08:31-0400 Diastolic blood pressure 93 mm[Hg] Lev Price DO Work Phone: [facility] 11-29-2022 08:31-0400 Systolic blood pressure 151 mm[Hg] Lev Price DO Work Phone: [facility] 11-29-2022 08:22-0400 Body height 175.3 cm Lev Price DO Work Phone: [facility] 11-29-2022 08:22-0400 Body weight 88 kg Lev Price DO Work Phone: [facility] 11-29-2022 08:22-0400 Heart rate 65 /min Lev Price DO Work Phone: [facility] 11-29-2022 08:22-0400 SaO2% (BldA) [Mass fraction] 98 % Lev Price DO Work Phone: [facility] 07-18-2022 15:45-0500 Body height 172.72 cm Sole Edi Other [facility] Other 07-18-2022 15:45-0500 Body mass index (BMI) [Ratio] 29.65 kg/m2 Sole Edi Other [facility] Other 07-18-2022 15:45-0500 Body temperature 98 [degF] Sole Edi Other [facility] Other 07-18-2022 15:45-0500 Body weight 88.45 kg Sole Edi Other [facility] Other 07-18-2022 15:45-0500 Diastolic blood pressure 80 mm[Hg] Sole Edi Other [facility] Other 07-18-2022 15:45-0500 Respiratory rate 20 /min Sole Edi Other [facility] Other 07-18-2022 15:45-0500 SaO2% (BldA) [Mass fraction] 98 % Sole Edi Other [facility] Other 07-18-2022 15:45-0500 Systolic blood pressure 112 mm[Hg] Sole Edi Other [facility] Other 05-07-2022 10:50-0400 Body height 175.3 cm Nabila Valenzuela MD Work Phone: [facility] 05-07-2022 10:50-0400 Body weight 87.09 kg Nabila Valenzuela MD Work Phone: [facility] 05-07-2022 10:50-0400 Diastolic blood pressure 88 mm[Hg] Nabila Valenzuela MD Work Phone: [facility] 05-07-2022 10:50-0400 Heart rate 51 /min Nabila Valenzuela MD Work Phone: [facility] 05-07-2022 10:50-0400 Systolic blood pressure 134 mm[Hg] Nabila Valenzuela MD Work Phone: [facility] 04-08-2022 14:50-0400 Body height 172.72 cm Jeanette Longo Other [facility] Other 04-08-2022 14:50-0400 Body mass index (BMI) [Ratio] 28.43 kg/m2 Jeanette Longo Other [facility] Other 04-08-2022 14:50-0400 Body temperature 98.2 [degF] Jeanette Longo Other [facility] Other 04-08-2022 14:50-0400 Body weight 84.82 kg Jeanette Longo Other [facility] Other 04-08-2022 14:50-0400 Respiratory rate 20 /min Jeanette Longo Other [facility] Other 04-08-2022 14:50-0400 SaO2% (BldA) [Mass fraction] 96 % Jeanette Longo Other [facility] Other 03-13-2022 15:45-0400 Body height 172.72 cm [employer] Other [facility] Other 03-13-2022 15:45-0400 Body mass index (BMI) [Ratio] 29.49 kg/m2 [employer] Other [facility] Other 03-13-2022 15:45-0400 Body temperature 98.4 [degF] [employer] Other [facility] Other 03-13-2022 15:45-0400 Body weight 88 kg [employer] Other [facility] Other 03-13-2022 15:45-0400 Diastolic blood pressure 98 mm[Hg] [employer] Other [facility] Other 03-13-2022 15:45-0400 Respiratory rate 20 /min [employer] Other [facility] Other 03-13-2022 15:45-0400 SaO2% (BldA) [Mass fraction] 97 % [employer] Other [facility] Other 03-13-2022 15:45-0400 Systolic blood pressure 144 mm[Hg] [employer] Other [facility] Other 06-04-2021 12:15-0400 Body height 172.72 cm Sole Edi Other [facility] Other 06-04-2021 12:15-0400 Body mass index (BMI) [Ratio] 29.65 kg/m2 Sole Edi Other [facility] Other 06-04-2021 12:15-0400 Body temperature 97.9 [degF] Sole Edi Other [facility] Other 06-04-2021 12:15-0400 Body weight 88.45 kg Sole Edi Other [facility] Other 06-04-2021 12:15-0400 Diastolic blood pressure 82 mm[Hg] Sole Edi Other [facility] Other 06-04-2021 12:15-0400 Respiratory rate 20 /min Sole Edi Other [facility] Other 06-04-2021 12:15-0400 SaO2% (BldA) [Mass fraction] 98 % Sole Edi Other [facility] Other 06-04-2021 12:15-0400 Systolic blood pressure 130 mm[Hg] Sole Edi Other [facility] Other Encounters Encounter Date Encounter Type Care Provider Facility Start: 11-26-2023 ambulatory Isreal Ramirez ty:[facility] Start: 09-18-2023 ambulatory Isreal DAHL James ty:CD:[id number] Start: 09-16-2023 End: 09-16-2023 Emergency department patient visit Skylar Wright Facility:[facility] Start: 09-16-2023 End: 09-16-2023 Emergency department patient visit Skylar Wright [facility] Start: 08-14-2023 End: 08-14-2023 ambulatory SOLE BAHENA EDI Facility:[facility] Start: 08-11-2023 End: 08-11-2023 ambulatory Sole M. Edi Facility:[facility] [place] Start: 08-11-2023 End: 08-11-2023 ambulatory DO Sole M. Edi Work Phone: [facility] Work Phone: Start: 08-11-2023 End: 08-11-2023 Patient encounter procedure DO Sole Edi Work Phone: [facility] Work Phone: Start: 08-07-2023 End: 08-08-2023 ambulatory Isreal DAHL Facility:[id number] Start: 07-23-2023 End: 07-23-2023 ambulatory Sole Edi Other [facility] Other Start: 07-23-2023 Patient encounter procedure Sole Edi [facility] Start: 06-24-2023 End: 06-24-2023 ambulatory Sole M. Edi Facility:[facility] [place] Start: 06-24-2023 End: 06-24-2023 ambulatory DO Sole M. Edi Work Phone: [facility] Work Phone: Start: 06-24-2023 End: 06-24-2023 Patient encounter procedure DO Sole Edi Work Phone: [facility] Work Phone: Start: 06-18-2023 End: 06-19-2023 ambulatory Isreal DAHL Facility:[facility] Start: 06-17-2023 End: 06-17-2023 ambulatory Sole Daley Facility:[facility] [place] Start: 06-17-2023 End: 06-17-2023 ambulatory DO Sole Sosagles Work Phone: [facility] Work Phone: Start: 06-17-2023 End: 06-17-2023 Patient encounter procedure DO Sole Daley Work Phone: [facility] Work Phone: Start: 06-14-2023 End: 06-14-2023 Emergency department patient visit Justin Echeverria Facility:[facility] Start: 06-10-2023 End: 06-11-2023 ambulatory Carlos Enrique LEWIS Facility: [facility] Start: 06-10-2023 End: 06-10-2023 Patient encounter procedure Carlos Enrique LEWIS [facility] Start: 04-07-2023 End: 04-08-2023 ambulatory Carlos Enrique LEWIS Facility:[facility] Start: 04-07-2023 End: 04-07-2023 Patient encounter procedure Carlos Enrique LEWIS [facility] Start: 03-31-2023 End: 04-01-2023 ambulatory Carlos Enrique LEWIS Facility:[facility] Start: 03-24-2023 End: 03-25-2023 ambulatory Carlos Enrique LEWIS Facility:[facility] Start: 03-24-2023 End: 03-24-2023 Patient encounter procedure Carlos Enrique LEWIS [facility] Start: 03-17-2023 ambulatory Carlos Enrique LEWIS Facility:[facility] Start: 03-04-2023 End: 03-05-2023 ambulatory Carlos Enrique LEWIS Facility:[facility] Start: 03-04-2023 End: 03-04-2023 Patient encounter procedure Carlos Enrique LEWIS [facility] Start: 02-25-2023 End: 02-25-2023 ambulatory Lev Price Facility:[facility] [place] Start: 02-17-2023 End: 02-18-2023 ambulatory Carlos Enrique LEWIS Facility:[facility] Start: 02-17-2023 End: 02-17-2023 Patient encounter procedure Carlos Enrique LEWIS [facility] Start: 02-07-2023 End: 02-07-2023 ambulatory LEV DEE Facility:[facility] Start: 02-07-2023 End: 02-07-2023 Patient encounter procedure Levkendell Price DO Work Phone: Cardiology Comment on above: Paroxysmal atrial fi brillation (HCC) (Primary Dx); Primary hypertension; Mixed hyperlipidemia; Overweight (BMI 25.0-29.9) Start: 01-28-2023 End: 01-28-2023 ambulatory Lev Eduardo Price Facility:[facility] Start: 01-13-2023 End: 01-13-2023 ambulatory Sole Daley Other [facility] Other Start: 01-13-2023 Telephone encounter Sole Daley [facility] Start: 12-23-2022 Telephone encounter Lev barton DO Work Phone: Cardiology Comment on above: Patient Update Start: 11-29-2022 End: 11-29-2022 ambulatory NABILA VALENZUELA Facility:[facility] Start: 11-29-2022 End: 11-29-2022 Patient encounter procedure Lev Price DO Work Phone: Cardiology Comment on above: Paroxysmal atrial fi brillation (HCC) (Primary Dx); Elevated blood pressure reading without diagnosis of hypertension; Mixed hyperlipidemia; Overweight (BMI 25.0-29.9) Start: 07-20-2022 End: 07-20-2022 ambulatory DO Sole Sosagles Work Phone: [facility] Work Phone: Start: 07-20-2022 End: 07-20-2022 Patient encounter procedure DO Sole Edi Work Phone: [facility] Start: 07-18-2022 End: 07-18-2022 ambulatory Sole Edi Other [facility] Other Start: 07-18-2022 Patient encounter procedure Sole Edi [facility] [facility] Start: 07-15-2022 End: 07-15-2022 ambulatory Sole Edi Other [facility] Other Start: 07-15-2022 Telephone encounter Sole Edi [facility] Start: 07-08-2022 End: 07-08-2022 ambulatory Sole Edi Other [facility] Other Start: 07-08-2022 Telephone encounter Sole Edi [facility] Start: 05-07-2022 End: 05-14-2022 Patient encounter procedure Nabila Valenzuela MD Work Phone: Cardiology Comment on above: PAF (paroxysmal atri al fibrillation) (HCC) (Primary Dx) Start: 04-08-2022 End: 04-08-2022 ambulatory Jeanette Longo Other [facility] Other Start: 04-08-2022 Office outpatient vi sit 15 minutes Jeanette Longo [facility] Start: 04-04-2022 End: 04-04-2022 ambulatory Sole Edi Other [facility] Other Start: 04-04-2022 Telephone encounter Sole Edi [facility] Start: 03-20-2022 End: 03-20-2022 ambulatory Sole Edi Other [facility] Other Start: 03-20-2022 Telephone encounter Sole Edi [facility] Start: 03-13-2022 End: 03-13-2022 ambulatory Sole Edi Other [facility] Other Start: 03-13-2022 Office outpatient vi sit 15 minutes Fatemeh Link [facility] Start: 03-13-2022 Telephone encounter Sole Edi [facility] Start: 03-12-2022 End: 03-12-2022 ambulatory Sole Edi Other [facility] Other Start: 03-12-2022 Telephone encounter Sole Edi [facility] Start: 01-21-2022 End: 01-21-2022 ambulatory Sole Edi Other [facility] Other Start: 01-21-2022 Telephone encounter Sole Edi [facility] Start: 12-31-2021 End: 12-31-2021 ambulatory Sole Edi Other [facility] Other Start: 12-31-2021 Telephone encounter Sole Edi [facility] Start: 10-19-2021 ambulatory Madonna mae MD Work Phone: [facility] Start: 10-19-2021 Patient encounter procedure Madonna Smith MD Work Phone: Cardiology Comment on above: Virtual appointments Start: 07-23-2021 End: 07-23-2021 ambulatory Sole Edi Other [facility] Other Start: 07-23-2021 Telephone encounter Sole Edi [facility] Start: 07-02-2021 Telephone encounter Sole Edi [facility] Start: 06-04-2021 Office outpatient vi sit 25 minutes Sole Edi [facility] Start: 06-04-2021 Telephone encounter Sole Edi [facility] Procedures Date Procedure Procedure Detail Performing [...] Author Start: 06-12-2026 LIPID SCREEN LIPID SCREEN [facility] Start: 06-12-2024 DIABETES SCREEN DIABETES SCREEN [facility] Start: 08-09-2023 End: 10-09-2023 Lipid 1996 panel - Serum or Plasma LIPID PANEL BASIC Lab Routine Mixed hyperlipidemia Expected: 08/09/2023 (Approximate), Expires: 10/09/2023 Work Phone: Comment on above: Expected: 08/09/2023 (Approximate), Expires: 10/09/2023 Start: 02-21-2023 End: 04-23-2023 Basic metabolic 2000 panel - Serum or Plasma BASIC METABOLIC PNL Lab Routine Primary hypertension Expected: 02/21/2023 (Approximate), Expires: 04/23/2023 Work Phone: Comment on above: Expected: 02/21/2023 (Approximate), Expires: 04/23/2023 Start: 11-29-2022 End: 01-29-2023 Lipid 1996 panel - Serum or Plasma LIPID PANEL BASIC Lab Routine Mixed hyperlipidemia Expected: 11/29/2022, Expires: 01/29/2023 Work Phone: Comment on above: Expected: 11/29/2022 , Expires: 01/29/2023 Start: 09-08-2022 ADVANCE DIRECTIVE DISCUSSION ADVANCE DIRECTIVE DISCUSSION [facility] Start: 09-08-2022 DEPRESSION ASSESSMENT DEPRESSION ASS ESSMENT [facility] Start: 05-31-2022 Colonoscopy COLONOSCOPY [facility] Start: 05-31-2022 COLORECTAL CANCER SCREENING COLORECTAL CANCER SCREENING [facility] Start: 05-09-2022 Influenza vaccination INFLUENZA (#1) [facility] Start: 09-08-2021 ADVANCE DIRECTIVE DISCUSSION ADVANCE DIRECTIVE DISCUSSION [facility] Start: 05-09-2021 Influenza vaccination INFLUENZA (#1) [facility] Start: 06-02-2018 DIABETES SCREEN DIABETES SCREEN [facility] Start: 2017 PNEUMOCOCCAL: 65+ (1 - PCV) PNEUMOCOCCAL: 65+ (1 - PCV) [facility] Start: 2017 PNEUMOVAX AGE 65 AND OVER WITH 5YR LOOKBACK (#1) PNEUMOVAX AGE 65 AND OVER WITH 5YR LOOKBACK (#1) [facility] Start: 2002 SHINGRIX VACCINE (1 of 2) SHINGRIX VACCINE (1 of 2) [facility] Start: 1997 COLOGUARD (FIT-DNA) COLOGUARD (FIT-D NA) [facility] Start: 1997 Colonoscopy COLONOSCOPY [facility] Start: 1997 COLORECTAL CANCER SCREENING COLORECTAL CANCER SCREENING [facility] Start: [address] COLONOGRAPHY [facility] Start: 1997 FECAL OCCULT BLOOD FECAL OCCULT BLOO D [facility] Start: 1997 SIGMOIDOSCOPY SIGMOIDOSCOPY [facility] Start: 1987 LIPID SCREEN LIPID SCREEN [facility] Start: 1971 Urine microalbumin profile DTAP,TDAP,TD (1 - Tdap) [facility] Start: 1970 HEPATITIS C SCREENING HEPATITIS C SC REENING [facility] Start: 1964 Adult depression screening assessment DEPRESSION SCREENING [facility] Start: 1957 COVID-19 VACCINE (1) COVID-19 VACCIN E (1) [facility] Start: 1952 ABDOMINAL AORTIC ANEURYSM SCREENING ABDOMINAL AORTIC ANEURYSM SCREENING [facility] End: 11-30-2023 ECG COMPLETE ECG COMPLETE ECG Routine Paroxysmal atrial fibrillation (HCC) 1 Occurrences starting 11/29/2022 until 11/30/2023 Work Phone: Comment on above: 1 Occurrences starti ng 11/29/2022 until 11/30/2023 ECG COMPLETE ECG COMPLETE ECG 11/29/2022 8:24 AM EDT OUTSIDE VENDOR CARDI AC OUTPATIENT EXTENDED RHYTHM RECORDING (WITHOUT TELEMETRY) OUTSIDE VENDOR CARDIAC OUTPATIENT EXTENDED RHYTHM RECORDING (WITHOUT TELEMETRY) Holter Routine Paroxysmal atrial fibrillation (HCC) Ordered: 11/29/2022 Work Phone: Comment on above: Ordered: [facility] Immunizations Immunization Date Immunization Notes Care Provider Jose lake 07-23-2023 influenza, injectabl e, quadrivalent, contains preservative Sole Edi Other [facility] Other 07-18-2022 influenza, injectabl e, quadrivalent, contains preservative Sole Edi Other [facility] Other 07-18-2022 influenza virus vaccine, unspecified formulation Carlos Enrique LEWIS [facility] 05-30-2022 SARS-CoV-2 (COVID-19 ) [id number] Carlos Enrique LEWIS [facility] 01-02-2022 SARS-CoV-2 mRNA (lnduoyyjikt-lufa-mctp ose) vaccine Carlos Enrique LEWIS [facility] 06-29-2021 Do not use COVID-19 Pfizer 2 dose Sole Edi Other [facility] 06-04-2021 influenza virus vaccine, unspecified formulation Carlos Enrique LEWIS [employer] [facility] 06-04-2021 influenza, injectabl e, quadrivalent, contains preservative Sole Edi Other [facility] Other 11-30-2020 COVID-19 Pfizer Sole Edi Other [facility] 11-09-2020 COVID-19 Pfizer Sole Edi Other [facility] 06-13-2020 influenza virus vaccine, unspecified formulation Carlos Enrique [employer] [facility] 06-13-2020 influenza, injectabl e, quadrivalent, contains preservative Sole Edi Other [facility] Other 07-05-2019 influenza, injectabl e, quadrivalent, contains preservative Sole Edi Other [facility] Other 07-05-2019 influenza virus vaccine, unspecified formulation Carlos Enrique LEWIS [facility] 05-26-2018 influenza virus vaccine, unspecified formulation Carlos Enrique LEWIS [facility] 05-26-2018 influenza, injectabl e, quadrivalent, contains preservative Sole Edi Other [facility] Other 06-24-2017 influenza, injectabl e, quadrivalent, contains preservative Sole Edi Other [facility] Other 06-24-2017 influenza virus vaccine, unspecified formulation Carlos Enrique LEWIS [facility] 05-09-2017 influenza virus vaccine, unspecified formulation Carlos Enrique LEWIS [facility] 06-20-2016 influenza virus vaccine, unspecified formulation Carlos Enrique LEWIS [facility] 06-02-2015 influenza virus vaccine, unspecified formulation Carlos Enrique LEWIS [facility] 06-02-2015 influenza, injectabl e, quadrivalent, preservative free Madonna Smith MD Work Phone: [facility] 08-20-2014 zoster vaccine, live Carlos Enrique LEWIS [facility] 02-18-2010 tetanus toxoid, reduced diphtheria toxoid, and acellular pertussis vaccine, adsorbed Carlos Enrique LEWIS [facility] Payers Date Payer Category Payer Self-pay [id number] 2023 Unknown [id number] 2021 Unknown [id number] [id number] 2021 Unknown [employer] MEDIC[employer] SUPPLEMENT [id number] 2021-Present [phone] [id number] [place] [address] Indemnity [id number] 2017 Medicare [id number] 2017 Medicare MEDICARE MEDICAR E A AND B [id number] 2017-Present [phone] [address] [address] [place] [address] Medicare [id number] 2014 Unknown MMO MMO TRADITIO NAL [id number] 2014-Present [phone] [address] [place] [address] Indemnity [id number] 1952 Unknown [id number] 2.16.840.1.106123.3.579.2.727 1952 Unknown [id number] 2.16.840.1.609456.3.579.2.727 1952 Unknown [id number] 2.16.840.1.259605.3.579.2.727 1952 Unknown [id number] 2.16.840.1.029788.3.579.2.727 1952 Unknown [id number] 2.16.840.1.102406.3.579.2.72 1952 Unknown [id number] 2.16.840.1.088477.3.579.2.727 1952 Unknown [id number] 2.16.840.1.860739.3.579.2.727 1952 Unknown [id number] 2.16.840.1.915131.3.579.2.72 1952 Unknown [id number] 2.16.840.1.008472.3.579.2.727 1952 Unknown [id number] 2.16.840.1.776513.3.579.2.72 1952 Unknown [id number] 2.16.840.1.699226.3.579.2.72 Unknown [id number] [id number] Unknown [facility] Health Claims [id number] Unknown [id number] 2.16.840.1.314515.3.579.2.531 Unknown [id number] 2.16.840.1.052419.3.579.2.531 Unknown [id number] 2.16.840.1.591552.3.579.2.531 Unknown [id number] 2.16.840.1.850492.3.579.2.531 Unknown [id number] [id number] Social History Date Type Detail Facility Start: 03-13-2015 End: 02-17-2023 Tobacco smoking status NHIS Ex-smoker [facility] End: 09-08-1989 History of tobacco use Current smoker [facility] End: 09-08-1989 History of tobacco use Cigarette Smoker [facility] Start: 03-13-2015 End: 05-07-2022 Cigarettes smoked current (pack per day) - Reported 1 [facility] Start: 03-13-2015 End: 05-07-2022 Tobacco use and exposure Smokeless tobacco non-user [facility] Start: 04-06-2015 End: 02-07-2023 Alcohol intake Current non-drinker of alcohol (finding) [facility] Start: 1950 Sex Assigned At Not on file [facility] Sex Assigned At [facility] Start: 1950 Sex Assigned At Male [facility] Start: 06-10-2023 End: 06-18-2023 Tobacco smoking status Never [facility] Functional Status Date Assessment Result Facility 09-16-2023 Functional Status N/A [facility] 06-10-2023 Functional Status N/A [facility] 04-07-2023 Functional Status N/A [facility] 03-24-2023 Functional Status N/A [facility] 03-04-2023 Functional Status N/A [facility] 02-17-2023 Functional Status N/A [facility] Clinical Notes 06-04-2021 to 09-16-2023 Note Date & Type Note Facility 09-16-2023 Evaluation + Plan note Extrac harpreet from: Title:ED Note Author:Skylar Wright DO Date :09/16/23 Right renal stone (N20.0: Ca lculus of kidney) Orders: acetaminophen-oxycodone, 1 tab(s), Oral, q6hr for 3 day(s), 12 tab(s), Refill(s) 0, [facility] [id number], 175, cm, 09/16/23 3:54:00 EST, Height/Length Dosing, [...] q8hr, # 12 tab(s), Refills(s) 0, Pharmacy: [facility] [id number], 175, cm, 09/16/23 3:54:00 EST, Height/Length Dosing, [...] Daily, # 10 cap(s), Refills(s) 0, Pharmacy: [facility] [id number], 175, cm, 09/16/23 3:54:00 EST, Height/Length Dosing, 87.5, kg, 09/16/23 3:54:00 EST, Weight Dosing Automated Diff Basic Metabolic Panel CBC w/ Auto Diff CT Abdomen/Pelvis w/o Contrast eGFR Extra Blue Tube Extra SST Tube Hepatic Function Panel UA With Cult Reflex Future Appointments Appointment Date:11/26/2023 02:00:00 PM Scheduled Provider:Isreal DAHL MD Location:[facility] Appointment Type:URO Office Visit [facility]01-09-2024 Hospital Discharge instructions Patient Education 09/16/2023 06:23:14 Renal Colic, Lnug-ru-Oyqn Renal Colic Renal colic is pain that is caused by a kidney stone. The pain can be sharp and very bad. It may befelt in the back, belly, side (flank), or groin. It can cause nausea. Renal colic can come and go. Follow these instructions at home: Medicines Take tmqg-vwv-bagjrdw and prescription medicines only as told by [...] is caused by a kidney stone. Take hyev-men-khlqfed and prescription medicines only as told by [...] provider. Document Revised: 04/29/2022 Document Reviewed: 04/29/2022 PolyPid Patient Education 2022 Dragonfly List. Follow Up Care 09/16/2023 03:47:07 With:Isreal DAHL Address: [facility] [address] [place] [address]- Business (1) When:09/19/2023 06:04:33 Comments:Take the Flomax once daily. Completed the course. You can use the Percocet, Zofran every 6 hours asneeded for pain and nausea. Please follow-up with your primary care doctor and urology for further evaluation management. If you have worsening pain, develop fever or any concerning symptoms please return to the ED for further treatment. With:SOLE DALEY Address: [address] [place] [address] [address]- Business (1) When:09/19/2023 06:04:[address] [facility]12-07-2023 NoteHNO ID: [id number] Author: Lev Price, DO Service: ? Author Type: Physician Type: Progress Notes Filed: 08/14/2023 9:39 AM Note Text: [facility] [place] SECTION OF REGIONAL CARDIOLOGY OUTPATIENT VISIT DATE August 14, 2023 OUTPATIENT VISIT TYPE ESTABLISHED PRIMARY CARE PHYSICIAN: Sole Daley [address] [place] [address] [address] [place] [address] CHIEF COMPLAINT: Arrhythmia HISTORY OF PRESENT ILLNESS: [...] had an enlarged heart. Brother had an NE when he was 72 years of age. 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 IMPRESSION: Encounter Diagnosis ICD-10-CM 1. Paroxysmal atrial [...] tab Take by mouth q 12 HR. Breckenridge-3 Fatty Acids 500 mg cap Take 500 mg by mouth once daily. sixksxe-joqj-rgalb-oreg-capryl 100 mg-150 mg- 50 mg-150 mg cap Take by mouth. cholecalciferol, vitamin D3, 350 mcg (14,000 unit) cap Take by mouth. rosuvastatin (CRESTOR) 20 mg tablet Take 1 tablet by mouth daily at bedtime. SAW PALMETTO ORAL Take by mouth twice daily. Take one tab po bid aspirin, enteric coated (ECOTRIN) 325 mg EC (more content not included)... [facility]* Encounter Date Diagnosis Assessment Notes [...] Need for influenza vaccination (ICD-10 - Z23) [facility] Other 10-03-2023 Hospital Discharge instructions Patient Education [...] urethra. Follow these instructions at home: Take msdg-tyo-mmjedtq and prescription medicines only as told by [...] provider. Document Revised: 03/13/2022 Document Reviewed: 03/13/2022 PolyPid Patient Education 2022 Dragonfly List. Follow Up Care 04/07/2023 10:55:23 With:BRANDEN ELIZALDE, Carlos Enrique Falk, URL Address: [address] [place], [place] [id number]- When:Within 4 Month(s) Comments:w/ASHUTOSH [facility] [id number] Hospital Discharge instructions Patient Education 04/07/2023 10:35:44 [...] urethra. Follow these instructions at home: Take ddha-acz-xtycdjf and prescription medicines only as told by [...] provider. Document Revised: 03/13/2022 Document Reviewed: 03/13/2022 PolyPid Patient Education 2022 Dragonfly List. Follow Up Care 03/31/2023 11:26:46 With:BRANDEN ELIZALDE, Carlos Enrique Falk, URL Address: [address] [place], [place] [id number]- When: Unknown [facility] [id number] Note [id number]:127[facility] 03-24-2023 NoteUrolift ? Some men may [...] personnel to use a Coude (pronouncedcoo-day) tipped catheter.[facility]07-17-2023 Hospital Discharge instructions Patient Education 03/24/2023 [...] 03/04/2023 07:59:02 With:Carlos Enrique LEWIS Address: [address] [place], [place] [id number] [facility] (1) When:1 week Comments:Call for followup appointment to remove the catheter. Push fluids to keep the urine clear. [facility]06-27-2023 Hospital Discharge instructions Patient Education 03/04/2023 07:34:46 [...] urethra. Follow these instructions at home: Take rkpk-gun-ssfyqci and prescription medicines only as told by [...] provider. Document Revised: 03/13/2022 Document Reviewed: 03/13/2022 PolyPid Patient Education 2022 Dragonfly List. Follow Up Care 02/17/2023 11:05:09 With:BRANDEN ELIZALDE, Carlos Enrique Falk, URL Address: [facility] [email or web address] [facility] [address] [place], [place] [id number]- When: Unknown [facility] Micky [id number] Hospital Discharge instructions Patient Education 02/17/2023 10:40:13 [...] urethra. Follow these instructions at home: Take ujok-ufn-qttnbnp and prescription medicines only as told by [...] provider. Document Revised: 03/13/2022 Document Reviewed: 03/13/2022 PolyPid Patient Education 2022 Dragonfly List. Follow Up Care 12/06/2022 08:34:50 With:BRANDEN ELIZALDE, Carlos Enrique Falk, URL Address: When: Unknown [facility] 06-02-2023 NoteHNO ID: [id number] Author: Lev Price, DO Service: ? Author Type: Physician Type: Progress Notes Filed: 02/07/2023 9:12 AM Note Text: [facility] [place] SECTION OF REGIONAL CARDIOLOGY OUTPATIENT VISIT DATE February 07, 2023 OUTPATIENT VISIT TYPE ESTABLISHED PRIMARY CARE PHYSICIAN: Sole Daley [address] [place] [address] [address] [place] [address] CHIEF COMPLAINT: Arrhythmia HISTORY OF PRESENT ILLNESS: [...] had an enlarged heart. Brother had an NE when he was 72 years of age. 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 Upon further questioning IMPRESSION: Encounter Diagnosis ICD-10-CM [...] tab Take by mouth q 12 HR. Breckenridge-3 Fatty Acids 500 mg cap Take 500 mg by mouth once daily. wkcwbbg-obcw-ovfcz-oreg-capryl 100 mg-150 mg- 50 mg-150 mg cap [...] 25 mcg by mouth (more content not included)...[facility] History of Present illness Narrative* Lev Price, - 02/07/2023 9:00 AM EDT Images from the original note were not included. [facility] [place] SECTION OF REGIONAL CARDIOLOGY OUTPATIENT VISIT DATE February 07, 2023 OUTPATIENT VISIT TYPE ESTABLISHED PRIMARY CARE PHYSICIAN: Sole Daley [address] [place] [address] [address] [place] [address] CHIEF COMPLAINT: Arrhythmia HISTORY OF PRESENT ILLNESS: [...] had an enlarged heart. Brother had an NE when he was 72 years of age. 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 Upon further questioning IMPRESSION: Encounter Diagnosis ICD-10-CM [...] tab Take by mouth q 12 HR. Breckenridge-3 Fatty Acids 500 mg cap Take 500 mg by mouth once daily. mdwoofp-qpzc-iwgpj-oreg-capryl 100 mg-150 mg- 50 mg-150 mg cap [...] mouth once daily. Signed: Lev Price DO, [facility] February 07, 2023 This note was partially generated using [employer] voice recognition system, and there may be some incorrect words, spellings, and punctuation that were not noted in checking the note before saving. [facility] Miscellaneous Notes* Telephone Encounter - Fatemeh Harman RN - 12/23/2022 11:37 AM EDT [employer] message sent. * Telephone Encounter - Elizabeth [...] [facility] on dial documented [facility]2023 NoteHNO ID: [id number] Author: Lev Price DO Service: ? Author Type: Physician Type: Progress Notes Filed: 11/29/2022 9:21 AM Note Text: [facility] [place] SECTION OF REGIONAL CARDIOLOGY OUTPATIENT VISIT DATE November 29, 2022 OUTPATIENT VISIT TYPE ESTABLISHED PRIMARY CARE PHYSICIAN: Sole Daley [address] [place] [address] [address] [place] [address] CHIEF COMPLAINT: Arrhythmia HISTORY OF PRESENT ILLNESS: [...] had an enlarged heart. Brother had an NE when he was 72 years of age. 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 Upon further questioning IMPRESSION: Encounter Diagnosis ICD-10-CM [...] tab Take by mouth q 12 HR. Breckenridge-3 Fatty Acids 500 mg cap Take 500 mg by mouth once daily. qndcfll-ackg-wqzze-oreg-capryl 100 mg-150 mg- 50 mg-150 mg cap Take by mouth. cholecalciferol, vitamin D3, 350 mcg (14,000 unit) cap Take by mouth. rosuvastatin (CRESTOR) 20 mg tablet Take 1 tablet by mouth daily at bedtime. Signed: (more content not included)...[facility]03-24-2023 Note HNO ID: [id number] Author: Ga Burton MD Service: ? Author Type: Physician Type: Procedures Filed: 12/13/2022 3:54 PM Note Text: .monPatient Name: Montse Martniez : 1950 Ordering Provider: Lev Price Indication: I48.0 Paroxysmal atrial fibrillation Type of Monitor: Extended Monitoring-Zio Patch Enrollment Dates: 11/29/2022-12/02/2022[facility]03-24-2023 Nurse Note* Neli Wren MA - 11/29/2022 9:16 AM EDT EVENT MONITOR DISPOSABLE PATCH INSTRUCTIONS Patient Name: Montse Martinez [facility] Number: [id number] Skin prepped and cleansed with alcohol Patch secured to prepped area Monitor Activated Serial #: [id number] Patient Instructed: Prescribed order timeframe Bathing guidelines Usage of event button and diary documentation Return of monitor at the end of prescribed order Call with problems [phone] or [phone]. [phone] Patient expresses a good understanding of instructions Neli Wren MA documented in this encounterDetw[facility]03-24-2023 History of Present illness Narrative* Lev Price DO - 11/29/2022 8:58 AM EDT Images from the original note were not included. [facility] [place] SECTION OF REGIONAL CARDIOLOGY OUTPATIENT VISIT DATE November 29, 2022 OUTPATIENT VISIT TYPE ESTABLISHED PRIMARY CARE PHYSICIAN: Sole Daley [address] [place] [address] [address] [place] [address] CHIEF COMPLAINT: Arrhythmia HISTORY OF PRESENT ILLNESS: [...] had an enlarged heart. Brother had an NE when he was 72 years of age. 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 Upon further questioning IMPRESSION: Encounter Diagnosis ICD-10-CM [...] tab Take by mouth q 12 HR. Breckenridge-3 Fatty Acids 500 mg cap Take 500 mg by mouth once daily. jyxpvkm-rfwa-wolri-oreg-capryl 100 mg-150 mg- 50 mg-150 mg cap Take by mouth. cholecalciferol, vitamin D3, 350 mcg (14,000 unit) cap Take by mouth. rosuvastatin (CRESTOR) 20 mg tablet Take 1 tablet by mouth daily at bedtime. Signed: Lev Price DO, [facility] November 29, 2022 This note was partially generated using [employer] voice recognition system, and there may be some incorrect words, spellings, and punctuation that were not noted in checking the note before saving. documented in this encounterDetwiler [facility] Evaluation [facility]* Encounter Date Diagnosis Assessment Notes [...] for a healthy life material was published [facility] Other 08-30-2022 History and physical note* Nabila Valenzuela MD - 05/07/2022 10:30 AM EDT Images from the original note were not included. [facility] [place] Keri Addison Department of Cardiovascular Medicine SECTION OF CARDIAC PACING and ELECTROPHYSIOLOGY OUTPATIENT VISIT DATE May 07, 2022 OUTPATIENT VISIT TYPE CONSULTATION PRIMARY CARE PHYSICIAN: Sole Daley [address] [place] [address] [address] [place] [address] REFERRING PHYSICIAN SELF CHIEF COMPLAINT: Previously, symptomatic [...] establish with general cardiology. He lives in [facility], and we will facilitate an appointment for him to [facility]with [facility] at [facility]. He does not require regular follow-up with electrophysiology, unless he has recurrence of atrial fibrillation in the future. Nabila Valenzuela MD Electrophysiology staff pager [phone] May 07, 2022 11:17 AM [facility]* Encounter Date Diagnosis Assessment Notes Treatment Notes Treatment Clinical Notes Apr, Cough (ICD-10 - R05.9) Apr, COVID-19 (ICD-10 - U07.1) Drink plenty fluids, get plenty of rest. Continue home medications as prescribed. Take Tylenol or Motrin as needed for aches pains or fevers. Follow-up with your family physician if no improvement in 2 to 3 days. [facility] Other 07-13-2022 Evaluation note* Encounter Date Diagnosis Assessment Notes Treatment Notes Treatment Clinical Notes Mar, Lower respiratory infection (ICD-10 - J22) [facility] Other 07-06-2022 Evaluation note* Encounter Date Diagnosis Assessment Notes Treatment Notes Treatment Clinical Notes Mar, Lower respiratory infection (ICD-10 - J22) Discussed his funny feeling side effect r/t Mucinex. Also made patient aware that his blood pressure is elevated likely secondary to the pseudoephedrine and Mucinex. Discontinue the medication and only continue rrqd-jrq-rtumnau syrup. Declines Gita Smyth today. Lung randall [...] bacterial infection. Continue to push fluids, utilize mvdh-hif-jferquc medications as discussed, get plenty of rest, eat a high-protein diet and follow-up if symptoms persist or worsen. *Progress note was completed with the assistance of voice recognition software for dictation purposes. Please excuse any grammatical errors that were not corrected during review process. [facility] Other 09-27-2021 Evaluation note* Encounter Date Diagnosis [...] Flu vaccine need (IC D-10 - Z23) [facility] Other Evaluation + Plan note Future Appointments Appointment Date:03/04/2023 07:30:00 AM Scheduled Provider:Carlos Enrique LEWIS MD Location:[facility] Appointment Type:URO Procedure 15 min [facility] Evaluation + Plan note Future Appointments Appointment Date:03/10/2023 12:45:00 PM Scheduled Provider: Location:[facility] Appointment Type:Urology CALL PAT FT Appointment Date:03/24/2023 02:15:00 PM Scheduled Provider: Location:[facility] Appointment Type:Urology FT [facility] Evaluation + Plan note Future Appointments Appointment Date:03/31/2023 11:00:00 AM Scheduled Provider: Location:[facility] Appointment [facility] Future Appointments Appointment Date:06/10/2023 10:00:00 AM Scheduled Provider:Carlos Enrique LEWIS MD Location:[facility] Appointment Type:URO Office Visit [facility] evaluation + Plan note Future Appointments Appointment Date:10/06/2023 09:30:00 AM Scheduled Provider:Carlos Enrique LEWIS MD Location:[facility] Appointment Type:URO Office Visit [facility] evaluation noteNo InformationNort Drimmi Other evaluufzwg note* Diagnosis PAF (paroxysmal atrial fibrillation) (HCC)- Primary Atrial fibrillation [facility] [place] assessment information [facility] Work Phone: evaluation note* Diagnosis Paroxysmal atrial fibrillation (HCC)- Primary Atrial fibrillation Elevated blood pressure reading without diagnosis of hypertension Mixed hyperlipidemia Overweight (BMI 25.0-29.9) Overweight documented in this encounter [facility] note* Diagnosis Paroxysmal atrial fibrillation (HCC)- Primary Atrial fibrillation Primary hypertension Unspecified essential hypertension Mixed hyperlipidemia Overweight (BMI 25.0-29.9) Overweight documented in this encounter [facility] general Narrative - Reported* Type Description Date Medical History Hypothyroid Medical History OA - shoulder Medical History Afib - see Cardiology Medical History Hyperchol Surgical History Bilat Shoulder 2008 Surgical History Umbilical Hernia 1994 Surgical History Left Cheek age 11 Surgical History cardiac ablation 05/2015 Hospitalization History Left Cheek Hospitalization History Syncope Episode 2006 [facility] Other [facility] general Narrative - Reported* Type Description Date Medical History Hypothyroid Medical History OA - shoulder Medical History Afib - see Cardiology Medical History Hyperchol Surgical History Bilat Shoulder 2008 Surgical History Umbilical Hernia 1994 Surgical History Left Cheek age 11 Surgical History cardiac ablation 05/2015 Surgical History Colonoscopy 05/2021 Hospitalization History Left Cheek Hospitalization History Syncope Episode 2006 [facility] Other [facility]fniq general Narrative - Reported* Type Description Date Medical History Hypothyroid Medical History OA - shoulder Medical History Afib - see Cardiology Medical History Hyperchol Surgical History Bilat Shoulder 2008 Surgical History Umbilical Hernia 1994 Surgical History Left Cheek age 11 Surgical History cardiac ablation 05/2015 Surgical History Colonoscopy 05/2021 Surgical History Prostate Urolift 05/2023 Hospitalization History Left Cheek Hospitalization History Syncope Episode 2006 [facility] Other Hospital course Narrative No data available for this section [facility] Progress note No data available for this section [facility] Reason for referral (narrative)* Outpatient Procedure (Routine) - Authorized Specialty Diagnoses / Procedures Referred By Contac t Referred To [facility] Diagnoses Paroxysmal atrial fibrillation (HCC) Procedures ECG COMPLETE ECG ROUTINE ECG W/LEAST 12 LDS W/I&R Lev Price DO [address] [place] [address] [facility] [place] [address] [place] [address] Referral ID Status Reason Start Date Expiration Date Visits Requested Visits Authorized [id number] Authorized Auto-Generat ed Referral 11/29/2022 11/29/2023 1 1 [facility] Chief Complaint and Reason for Visit Chief [...] or prosecute any alcohol or drug abuse patient.[facility] HospitalIn the event this information is protected by the Federal Confidentiality of Alcohol and Drug Abuse Patient Records regulations: The Federal rules restrict any use of the information to criminally investigate or prosecute any alcohol or drug abuse patient.[facility] the event this information is protected by the Federal Confidentiality of Alcohol and Drug Abuse Patient Records regulations: The Federal rules restrict any use of the information to criminally investigate or prosecute any alcohol or drug abuse patient.[facility] the event this information is protected by the Federal Confidentiality of Alcohol and Drug Abuse Patient Records regulations: The Federal rules restrict any use of the information to criminally investigate or prosecute any alcohol or drug abuse patient.[facility] Hospital[facility] the event this information is protected by the Federal Confidentiality of Alcohol and Drug Abuse Patient Records regulations: The Federal rules restrict any use of the information to criminally investigate or prosecute any alcohol or drug abuse patient.[facility] Care Teams (unrecognized sec tion and content) Personnel Name: SOLE DALEY DO Address: Address: [address] [place] [id number]- Name: Amna Anderson Team Status: Active Member Role Status Dates Sole Daley DO Primary Care Provider Active Team Status: Inactive Member Role Status Dates Sole Daley DO Primary Care Provider Active Isreal Dahl MD Attending Provider Active Floral Manager Relationship Specialty Start Date End Date Sole Daley DO [address] [place] [address] PCP - General Family Practice 03/02/15 Madonna Smith MD [address] [place], [place] [id number] Primary Staff Physician Cardiology 11/24/18 Floral Manager Relationship Specialty Start Date End Date Sole Daley DO [address] [place] [address] PCP - General Family Practice 03/02/15 Madonna Smith MD [address] [place] [address] Primary Staff Physician Cardiology 11/24/18 Team Status: Inactive Member Role Status Dates Sole Daley DO Primary Care Provider, Attending Provider Active Floral Manager Relationship Specialty Start Date End Date Sole Daley DO [address] [place] [address] PCP - General Family Medicine 03/02/15 Madonna Smith MD [address] [place] [address] Primary Staff Physician Cardiology 11/24/18 Floral Manager Relationship Specialty Start Date End Date Sole Daley DO [address] [place] [address] PCP - General Family Medicine 03/02/15 Madonna Smith MD [address] [address] Primary Staff Physician Cardiology 11/24/18 Floral Manager Relationship Specialty Start Date End Date Sole Daley DO [address] [id number] PCP - General Family Medicine 03/02/15 Madonna Smith MD [address] [address] Primary Staff Physician Cardiology 11/24/18 Team Status: [...] section and content) DATE CREATED AUTHOR 08/16/2023 [facility] DATE CREATED AUTHOR AUTHOR'S ORGANIZ ATION 08/20/2023 [facility] DATE CREATED AUTHOR AUTHOR'S ORGANIZ ATION 09/16/2023 [facility] FOR RECORDS PERTAINING TO PATIENTS WHO ARE [...] BE BASED ON THE PRIMARY CLINICAL RECORDS. [employer] provides no warranty or guarantee of the accuracy or completeness of information in this document.
[2023-09-18] MEDS: LACTATED RINGER'S SOLUTION 1,000 ML 50 ML IV ×2 (09:17→11:06)
[2023-09-18] MEDS: CEFAZOLIN SODIUM/DEXTROSE,ISO 1 GM/50 ML IV.SOLN IV (10:13)
--- NOTE | 2023-09-18 10:56 | PM.URSON ---
Urology Surgery Operative Note Operative Note Procedure Date: 09/18/23 Time Out Performed: yes Pre-op Diagnosis: Right ureteral calculus Post-op Diagnosis: same as pre-op Procedures performed: 1. Cystoscopy. 2. Rigid ureteral dilation. 3. Right ureteroscopy. 4. Thulium laser of right ureteral calculus. 5. Stone fragments basket extraction Anesthesia: General-LMA Primary Surgeon: Isreal Coffey Complications: None Estimated blood loss (mL): 5 Findings: Large distal right ureteral calculus Specimens: Right ureteral calculus Drains: None Indications for Procedures: This gentleman has a 7 to 8 mm right distal ureteral calculus causing pain and partial obstruction. He now presents for cystoscopy, right ureteroscopy, laser and stone manipulation and possible stent placement. He has signed an informed consent after risks were explained. Detailed description of Procedure: The patient was brought to the operating room and placed on the operating room table in the supine position. SCDs were placed on the lower extremities and turned on and functioning during the entire case. Timeout was done by all parties in the room. We all agreed upon the patient's identification and the planned procedures for this patient. Genn. anesthesia was then administered. The patient was then repositioned into the modified dorsal lithotomy position. All pressure points were satisfactorily padded. Genitalia were sterilely prepped and draped in usual fashion. I started by passing a 22 [place] Islander Olympus cystoscope per urethra and into the bladder. The anterior urethra was normal. Prostatic urethra showed bilobar hypertrophy. Panendoscopy in the bladder showed no evidence of any tumors or stones. While using fluoroscopy I could see the distal right ureteral calculus. I passed a wire through the scope and cannulated the right ureter and got the wire beyond the stone into the kidney. I then dilated the distal ureter with an 8 and 10 [place] Islander rigid dilator. The cystoscope was then removed. I then passed a semirigid ureteroscope adjacent to the wire through the urethra into the bladder and into the right ureter. I was able to get right to the stone. Laser fiber was passed. 8 W continuously cracked up the stone into several pieces. A 0 tip nitinol basket was used to extract pieces and dumped them in the base of the bladder. I went up and down the ureter numerous times clearing out pieces until the ureter was free of stone. The ureteroscope was removed. The guidewire was removed because I elected not to place a stent. Cystoscope was passed into the bladder. The Ilich was used to get all the stone pieces out of the bladder and these were sent for stone analysis. The bladder was drained of its contents and the scope was then removed. He was then transferred to a [facility] bed and wheeled to the PACU in stable condition.
[2023-09-25 20:08] LABS: Calcium Oxalate Dihydrate 70 % (.); Calcium Oxalate Monohydrate 30 % (.); Size 3x2 mm (.)
== END 2023-09-18 11:58 | disposition home or self-care (01) ==
PROVIDERS: PCP Family Medicine; Visit Provider Urology
PROC: (CPT 52353; principal; 2023-09-18 10:10)
DX: N20.1 Calculus of ureter (principal); E05.90 Thyrotoxicosis, unspecified without thyrotoxic crisis or storm; M19.90 Unspecified osteoarthritis, unspecified site; E78.5 Hyperlipidemia, unspecified; Z79.01 Long term (current) use of anticoagulants; I48.91 Unspecified atrial fibrillation; Z79.82 Long term (current) use of aspirin
CPT/HCPCS: 52353; 36415; 76000; 82365; 99999; J0690; J1100; J1885; J2250; J2405; J2704; J3010

== ENCOUNTER 2025-04-23 16:28 | Emergency (ER) | payer MEDICARE, OTHER, SELFPAY ==
--- OUTSIDE RECORDS SUMMARY | 2019-02-03 05:30 | XMS_ITS | Continuity of Care Document ---
Author Name [facility] Organization [facility] Care Team Providers Care Test Administrator Name Role Phone [facility] Unavailable Unavailable Problems Combined list of problems from Department of Defense and Veterans Affairs facilities. It does not include entries that were removed or entered in error. Problem Status Onset Date Problem Type Date of Resolution Comments Source Hyperlipidemia Active Condition [facility] Hypothyroid Active Condition [facility] Multiple nodules of lung Active Condition [facility] Immunizations Combined list of available immunizations from the Department of Defense and Veterans Affairs facilities. Immunization Series Date Given Administered By Site Reaction Lot Number CVX Code Drug Guest Experience Specialist Status Comments Source ZOSTER RECOMBINANT 2018 187 complet ed [facility] PNEUMOCOCCAL CONJUGATE PCV 13 2018 133 complet ed [facility] ZOSTER RECOMBINANT 2018 187 complet ed [facility] INFLUENZA (HISTORICAL) 2017 88 complet ed local pharm [facility] Social History Combined list of available smoking, tobacco, and other social history from Department of Defense and Veterans Affairs facilities. Social History Type Response Date Comment Sourc e Tobacco smoking status NHIS VA-TOBACCO FORMER USER 12/03/2018 [facility] History of tobacco use VA-TOBACCO QUIT 1 5 YRS OR MORE 12/03/2018 [facility]
--- OUTSIDE RECORDS SUMMARY | 2022-05-30 04:30 | XMS_ITS | Continuity of Care Document ---
Author Organization [facility] Address [address] [place] [address] Phone Care Team Providers Care Plater [employer] Name Role Phone Nathanael Ventura Unavailable Unavailable Procedures Procedure Date Admin Pfizer Bivalent Booster 12 And Old er Pfizer Bivalent Booster 12 And Older May ADM Pfizer Covid-19 Ready To Use, Booste r Pfizer Reat To Use VAC 30MCG/0.3ML IM Ap Pfizer Booster Vaccine COVID-19 Pfizer Pfizer COVID Vaccine Admin Dose 2 COVID-19 Pfizer Pfizer COVID Vaccine Admin Dose 1 COVID-19 Pfizer Covid Testing [facility] Advance Directives Directive Yes / No Effective Date File Name No Information Encounters Encounter Description Practice Location Reason(s) For Visit Diagnoses Date Provider Providers Copied on Encounter [facility], [address] [place] [address], [id number], [place] tel:[phone] [facility] No Information Roya Johnson. [address], [place], [id number], [place]. tel:[phone] [facility], [address], [place], [id number], tel:[phone] [facility] No Information Roya Johnson. [address], [place], [id number], [place]. tel:[phone] [facility], [address], [place], [id number], [place] tel:[phone] [facility] No Information Roya Johnson. [address], [place], [id number], [place]. tel:[phone] [facility], [address], [place], [id number], [place] tel:[phone] [facility] No Information Roya Johnson. [address], [place], [id number], [place]. tel:[phone] [facility], [address], [place], [id number], [place] tel:[phone] [facility] No Information Roya Johnson. [address], [place], [id number], [place]. tel:[phone] [facility], [address], [place], [id number], [place] tel:[phone] [facility] Encounter for screening for other viral diseases Roya Johnson. [address], [place], [id number], [place]. tel:[phone] Family History Family Member Type Diagnosis Age At Onset No Information Immunizations Vaccine Date Status Comments Cov-19 administered Source: New Imm unization Record Pfizer COVID 12y and up administered Sour ce: New Immunization Record Pfizer COVID administered Source: New Imm unization Record Pfizer COVID administered Source: New Imm unization Record Pfizer COVID administered Source: New Imm unization Record Payers Payer name Insurance type Covered libertarian ID Authoriza tion(s) Medicare PPS MB [id number] Medicare PPS MB [id number] Medicare PPS MB [id number] Medicare PPS MB [id number] Medicare PPS MB [id number] Medicare PPS MB [id number] Social History Type Description Quantity Date Captured Comments Alcohol Use Details Unknown Caffeine Use Details Unknown Tobacco Use Status No Information Smoking Status No Information Sex Male Sexual Orientation Straight or heterosexual Gender Identity Male Chief Complaint And Reason For Visit No Information Reason For Referral Reason For Referral No Information Plan Of Treatment Date Type Action Status Goal PRAPARE ASSESSMENT. Due on S due Goal Depression screening. Due on due Goal Tdap. Due on due Goal Lipid panel. Due on due Goal FOBT. Due on due Goal Influenza vaccine. Due on Se due Goal Zoster vaccine (1st). Due on due Goal Colonoscopy. Due on due History Of Present Illness Encounter Date Complaint History Of Prese nt Illness No Information Functional Status Date Functional Assessmen t No Information Instructions Date Instruction Additional Infor mation No Information Assessments Type Assessment Date No Information Patient Care Teams Name Effective Dates (start - stop) Status Members No Information
[2025-04-23 16:33] VITALS: BP 132/96; PULSE 61; TEMP 36.8; O2SAT 97; BMI 29.1
--- OUTSIDE RECORDS SUMMARY | 2025-04-23 16:34 | XMS_ITS | Encounter Summary ---
Author Organization [facility] Address [facility] [place] [address] Care Team Providers Care Project Coordinator Name Role Phone Mykel Daley DO Primary Care Provider [phone]- [phone] Madonna Smith MD Unavailable Unavailable Madonna Smith MD Unavailable Unavailable Source Comments In the event this information is protected by the Federal Confidentiality of Alcohol and Drug AbusePatient Records regulations: The Federal rules restrict any use of the information to criminally investigate or prosecute any alcohol or drug abuse patient.[facility] Encounter Details Date Type Department Care Team (Late st Contact Info) Description 05/12/2015 Patient Msg Medical Records [address] [place] [address] Provider, Cc RE: Patient Registration Completed Social History Tobacco Use Types Packs/Day Years Used Date Smoking Tobacco: Former Cigarettes 1 25 0 09/08/1964 - 09/08/1989 Smokeless Tobacco: Never Alcohol Use Standard Drinks/Week Comments No 0 (1 standard drink = 0.6 oz pur e alcohol) Sex and Gender Information Value Date Recorded Sex Assigned at Not on file Legal Sex Male 3:30 PM EDT Gender Identity Not on file Sexual Orientation Not on file 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 Answer Date of Assessment Author No 04/06/2015 3:41 PM EDT Radha Pyle RN * Are you blind or do you have serious difficulty seeing, even when wearing glasses? Answer Date of Assessment Author No 04/06/2015 3:41 PM EDT Radha Pyle RN * Do you have serious difficulty walking or climbing stairs? Answer Date of Assessment Author No 04/06/2015 3:41 PM EDT Radha Pyle RN * Do you have difficulty dressing or bathing? Answer Date of Assessment Author No 04/06/2015 3:41 PM EDT Radha Pyle RN * Because of a physical, mental, or emotional condition, do you have difficulty doing errands alone such as visiting a doctor's office or shopping? Answer Date of Assessment Author No 04/06/2015 3:41 PM HENRYT Radha Pyle RN documented as of this encounter Mental Status * Because of a physical, mental, or emotional condition, do you have serious difficulty concentrating, remembering, or making decisions? Answer Entry Date Author No 04/06/2015 3:41 PM HENRYT Radha Pyle RN documented in this encounter Plan of Treatment Upcoming Encounters Date Type Department Care Team (Late st Contact Info) Description 07/07/2025 8:30 AM EDT Office Visit Cardiology [address] [place] [address] Lev Ross DO [address] [place] [address] 6 month follow up 08/23/2025 8:15 AM EST Procedure Pulmonary Lab [address] [place] [address] Asthma with chronic obstructive pulmonary disease (COPD) ([facility]) [J44.89] 08/23/2025 8:30 AM EST Office Visit Pulmonary Medicine [address] [place] [address] [place] [address] [place], [place] [phone] Return in about 6 months (around 06/17/2025). documented as of this encounter Visit Diagnoses Not on filedocumented in this encounter Care Teams Project Coordinator Relationship Specialty Start Date End Date Mykel Daley DO [address] [address] PCP - General Family Medicine 03/02/15 Madonna Smith MD [address] [address] Primary Staff Physician Cardiology 11/24/18 0 Madonna Smith MD [address] [address] Primary Staff Physician Cardiology 11/24/18 documented as of this encounter
--- OUTSIDE RECORDS SUMMARY | 2025-04-23 16:34 | XMS_ITS | Encounter Summary ---
Author Organization [facility] Address [address] [place] [address] Care Team Providers Care Senior Business Architect Name Role Phone Mykel Daley Primary Care Provider [phone]- [phone] Madonna Smith MD Unavailable Unavailable Source Comments In the event this information is protected by the Federal Confidentiality of Alcohol and Drug AbusePatient Records regulations: The Federal rules restrict any use of the information to criminally investigate or prosecute any alcohol or drug abuse patient.[facility] Encounter Details Date Type Department Care Team (Late st Contact Info) Description 11/03/2022 Patient Msg Cardiology [address] [place] [address] Lev Ross DO [address] [place], [place] [phone] Appointment Cancellation Request Social History Tobacco Use Types Packs/Day Years Used Date Smoking Tobacco: Former Cigarettes 1 25 0 09/08/1964 - 09/08/1989 Smokeless Tobacco: Never Alcohol Use Standard Drinks/Week Comments No 0 (1 standard drink = 0.6 oz pur e alcohol) Area Deprivation Index Answer Date Huber rded National Score (1-100), lower number is lower ri sk 61 10/05/2022 State Score (1-10), lower number is lower risk N ot on file 10/05/2022 Data from: https://www.neighborhoodatlas.medicine.[facility]/. 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 Answer Date of Assessment Author No 06/03/2015 9:45 AM Thelma Rodriguez RN * Are you blind or do you have serious difficulty seeing, even when wearing glasses? Answer Date of Assessment Author No 06/03/2015 9:45 AM Thelma Rodriguez RN * Do you have serious difficulty walking or climbing stairs? Answer Date of Assessment Author No 06/03/2015 9:45 AM EDThelma Smith RN * Do you have difficulty dressing or bathing? Answer Date of Assessment Author No 06/03/2015 9:45 AM Thelma Rodriguez RN * Because of a physical, mental, or emotional condition, do you have difficulty doing errands alone such as visiting a doctor's office or shopping? Answer Date of Assessment Author No 06/03/2015 9:45 AM Thelma Rodriguez RN documented as of this encounter Mental Status * Because of a physical, mental, or emotional condition, do you have serious difficulty concentrating, remembering, or making decisions? Answer Entry Date Author No 06/03/2015 9:45 AM Thelma Rodriguez RN documented in this encounter Plan of Treatment Upcoming Encounters Date Type Department Care Team (Late st Contact Info) Description 07/07/2025 8:30 AM EDT Office Visit Cardiology [address] [place], [place] [phone] Lev Ross DO [address] [place], [place] [phone] 6 month follow up 08/23/2025 8:15 AM EST Procedure Pulmonary Lab [address] [facility] [place] [address] Asthma with chronic obstructive pulmonary disease (COPD) ([facility]) [J44.89] 08/23/2025 8:30 AM EST Office Visit Pulmonary Medicine [address] [facility] [place] [address] [place] [address] [place], [place] [phone] Return in about 6 months (around 06/17/2025). documented as of this encounter Visit Diagnoses Not on filedocumented in this encounter Care Teams Senior Business Architect Relationship Specialty Start Date End Date Mykel Daley DO [address] [address] PCP - General Family Medicine 03/02/15 Madonna Smith MD [address] [address] Primary Staff Physician Cardiology 11/24/18 documented as of this encounter
--- OUTSIDE RECORDS SUMMARY | 2025-04-23 16:34 | XMS_ITS | Encounter Summary ---
Author Organization [facility] Address [address] [place] [address] Care Team Providers Care Swimming Pool Maintenance Name Role Phone Mykel Daley Primary Care Provider [phone]- [phone] Madonna Smith MD Unavailable Unavailable Source Comments In the event this information is protected by the Federal Confidentiality of Alcohol and Drug AbusePatient Records regulations: The Federal rules restrict any use of the information to criminally investigate or prosecute any alcohol or drug abuse patient.[facility] Encounter Details Date Type Department Care Team (Late st Contact Info) Description 01/26/2024 Patient Msg Cardiology [address] [place] [address] Lev Ross DO [address] [place], [place] [phone] Appointment Cancellation Request Social History Tobacco Use Types Packs/Day Years Used Date Smoking Tobacco: Former Cigarettes 1 25 0 09/08/1964 - 09/08/1989 Smokeless Tobacco: Never Alcohol Use Standard Drinks/Week Comments No 0 (1 standard drink = 0.6 oz pur e alcohol) Area Deprivation Index Answer Date Huber rded National Score (1-100), lower number is lower ri sk 69 02/07/2023 State Score (1-10), lower number is lower risk 5 02/07/2023 Data from: https://www.neighborhoodatlas.medicine.[facility]/. 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 Answer Date of Assessment Author No 06/03/2015 9:45 AM HENRYT Thelma Riddle RN * Because of a physical, mental, [...] 8:30 AM EDT Office Visit Cardiology [address] [facility], [place] [phone] Lev Ross DO [address] [place], [place] [phone] 6 month follow up 08/23/2025 8:15 AM EST Procedure Pulmonary Lab [address] [place] [id number] Asthma with chronic obstructive pulmonary disease (COPD) ([facility]) [J44.89] 08/23/2025 8:30 AM EST Office Visit Pulmonary Medicine [address] [facility] [place] [place] [id number] [place] [address] [place], [place] [phone] Return in about 6 months (around 06/17/2025). documented as of this encounter Visit Diagnoses Not on filedocumented in this encounter Care Teams Swimming Pool Maintenance Relationship Specialty Start Date End Date Mykel Daley DO [address] [address] PCP - General Family Medicine 03/02/15 Madonna Smith MD [address] [address] Primary Staff Physician Cardiology 11/24/18 documented as of this encounter
--- OUTSIDE RECORDS SUMMARY | 2025-04-23 16:34 | XMS_ITS | Clinical Summary ---
Author Organization [facility] Address [address] [place] [address] Care Team Providers Care Train Reservation Clerk Name Role Phone Mykel Daley MD Primary Care Provider [phone] Allergies No known active allergies Medications ASPIRIN 81 PO Take 81 mg by mouth Daily Active atorvastatin (Lipitor) 20 MG tablet Atorvastatin Calcium Active Multiple Vitamins-Minera ls (Centrum Adult 50+ MultiGummies) chewable tablet Centrum Acti ve losartan (Cozaar) 25 MG tablet Take 25 mg by mouth in the morning. 5 Active Methylcellulose , Laxative, 500 MG tablet Take by mouth every 12 (twelve) hours Active levothyroxine (Synthroid, Levoxyl) 75 MCG tablet 5 Active Fluticasone-Wally meterol 250-50 MCG/ACT aerosol powder INHALE 1 PUFF INSTRUCTED TWO TIMES A DAY. 5 Active budesonide-form oterol (Symbicort) 160-4.5 MCG/ACT inhaler INHALE 2 PUFFS BY MOUTH INTO THE LUNGS DIRECTED TWO TIMES A DAY Active neomycin-polymy zak-dexAMETHaso ne (Polydex) 3.5-32531-1.1 ointment ophthalmic ointment 5 Active rosuvastatin (Crestor) 40 MG tablet Take 40 mg by mouth at bedtime 4 Active rosuvastatin (Crestor) 20 MG tablet 4 Active Active Problems No known active problems Encounters Date Type Department Care Team Description 03/02/2025 1:30 PM EDT Office Visit [facility] [address] [place] [phone] Perfecto Ramsey DPM Onychomycosis (Primary Dx); Pain in toes of both feet; Valgus deformity of both great toes; Hammertoes of both feet 03/02/2025 Bamboo flowsheet [facility] [address] [facility] [address] [place] [phone] Perfecto Ramsey DPM 03/02/2025 Travel 02/25/2025 Travel from Last 3 Months Social History Tobacco Use Types Packs/Day Years Used Date Smoking Tobacco: Never Assessed Sex and Gender Information Value Date Recorded Sex Assigned at Not on file Legal Sex Male 6:57 PM EDT Gender Identity Not on file Sexual Orientation Not on file Last Filed Vital Signs Vital Sign Reading Time Taken Comments Blood Pressure 121/85 11/20/2017 12:00 PM EDT Pulse - - Temperature - - Respiratory Rate - - Oxygen Saturation - - Inhaled Oxygen Concentration - - Weight 84.4 kg (186 lb) 11/20/2017 12:00 PM EDT Height 175.3 cm (5' 9 ) 11/20/2017 12:00 PM EDT Body Mass Index 27.47 11/20/2017 12:00 PM EDT Plan of Treatment Upcoming Encounters Date Type Department Care Team (Late st Contact Info) Description 06/02/2025 11:30 AM EDT Office Visit [facility] [address] [facility] [address] [place] [phone] Perfecto Ramsey DPM [address] [facility] [address] [place] [address] Health Maintenance Due Date Last Done Comments CT Colonography 1952 FIT-DNA 1952 FIT 1950 FOBT 1950 Sigmoidoscopy 1950 Influenza Vaccine (#1) 2025 , 07/23/2023, 07/18/2022, Additional history exists Colonoscopy 06/03/2026 06/03/2016 Colorectal Cancer Screening 06/03/2026 Pneumococcal Vaccine: 65+ Years Completed , 12/03/2018 Procedures Procedure Name Priority Date/Time Associated Diagnosis Comments COLONOSCOPY Routine 06/03/2016 12:00 PM EDT from Last 3 Months or Most Recently Relevant to Health Maintenance Results * Colonoscopy (06/03/2016 12:00 PM EDT) Anatomical Region Laterality Modality Endoscopy 06/03/2016 12:0 0 PM EDT Narrative 06/06/2016 12:00 PM EDT PERFORMED AT [facility] LOCATION:[id number] Normal Procedure Note CONVERSION, GENERIC - 01/23/2023 PERFORMED AT [facility] LOCATION:[id number] Normal us Nahun Brown MD ENDOSCOPY PROCEDURE ORDERABLES Final Result from Last 3 Months or Most Recently Relevant to Health Maintenance Insurance MEDICARE [facility] [place] [id number] Care Teams Train Reservation Clerk Relationship Specialty Start Date End Date Mykel Daley MD [address] [place] [phone] PCP - General Family Medicine 03/02/25
--- OUTSIDE RECORDS SUMMARY | 2025-04-23 16:34 | XMS_ITS | Encounter Summary ---
Author Organization [facility] Address [address] [place] [address] Care Team Providers Care School Lunch Monitor Name Role Phone Mykel Daley Primary Care Provider [phone] Madonna Smith MD Unavailable Unavailable Source Comments In the event this information is protected by the Federal Confidentiality of Alcohol and Drug AbusePatient Records regulations: The Federal rules restrict any use of the information to criminally investigate or prosecute any alcohol or drug abuse patient.[facility] Encounter Details Date Type Department Care Team (Late st Contact Info) Description 12/21/2022 Patient Msg Cardiology [address] [place] [address] Lev Ross DO [address] [place], [place] [phone] Request an Appointment Social History Tobacco Use Types Packs/Day Years [...] N ot on file 10/05/2022 Data from: https://www.neighborhoodatlas.medicine.[facility]/. 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 documented as of this encounter Visit Diagnoses Not on filedocumented in this encounter Care Teams School Lunch Monitor Relationship Specialty Start Date End Date Mykel Daley DO [address] [address] PCP - General Family Medicine 03/02/15 Madonna Smith MD [address] [address] Primary Staff Physician Cardiology 11/24/18 documented as of this encounter
--- OUTSIDE RECORDS SUMMARY | 2025-04-23 16:35 | XMS_ITS | Clinical Summary ---
Author Organization [facility] Address [address] [place] [address] Care Team Providers Care Vehicle Assembler Name Role Phone Mykel Daley Primary Care Provider [phone] Madonna Smith MD Unavailable Unavailable Allergies Active Allergy Reactions Criticality Noted Date Comments Propafenone Other: See Comments 03/13/2015 Not effective (pill in the pocket) Sotalol Other: See Comments 03/13/2015 Dizzeness Medications levothyroxine (SYNTHROID) 25 mcg tablet Take 25 mcg by mouth once daily. Active MULTIVITS,CA,MIN/I IZAIAH/FA/LYCOP (CENTRUM MEN ORAL) Take 1 tablet by mouth once daily. Active SAW PALMETTO ORAL Take by mouth twice daily. Take one tab po bid Active Methylcellulose, Laxative, (FIBER THERAPY, M-CELLULOSE,) 500 mg tab Take by mouth q 12 HR. Active rosuvastatin (CRESTOR) 40 mg tabletIndications: Mixed hyperlipidemia Take 1 tablet by mouth daily at bedtime. 90 tablet 3 4 Active aspirin, enteric coated (ASPIRIN, ENTERIC COATED) 81 mg EC tablet Take 81 mg by mouth once daily. Active budesonide-formote rol (SYMBICORT) 160-4.5 mcg/actuation inhalerIndications :Asthma with chronic obstructive pulmonary disease (COPD) ([facility]) Inhale 2 puffs as instructed two times a day. 11 g 2 5 Active losartan (COZAAR) 25 mg tabletIndications: Primary hypertension TAKE 1 TABLET BY MOUTH DAILY 90 tablet 2 Active Active Problems Problem Noted Date Diagnosed Date Atrial fibrillation 03/13/2015 Encounters Date Type Department Care Team Description 02/13/2025 Refill Cardiology [address] [place] [address] Lev Ross DO Refill Request from Last 3 Months Immunizations Immunization Administration Dates Next Due influenza (IIV4) vaccine, ag e 6 mo - 64 yr, quadrivalent, PF (AFLURIA, FLUARIX, FLULAVAL, FLUZONE) 06/02/2015 Family History Medical History Relation Comments a fib [Other] Brother 2 Cancer Father pancreatic Heart Mother CAD/pacemaker Relation Status Comments Brother 1 Alive Brother 2 Father (Age 74) pancreatic CA Mother (Age 81) cerebral hemor rhage Social History Tobacco Use Types Packs/Day Years [...] is lower risk 5 02/07/2023 Data from: https://www.neighborhoodatlas.medicine.[facility].edu/. 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 Not on file Not on file Not on file Last Filed Vital Signs Vital Sign Reading Time Taken Comments Blood Pressure 138/85 12/23/2024 8:52 AM EDT Pulse 61 12/23/2024 8:52 AM EDT Temperature 36.8 C (98.3 F) 06/03/2015 7:00 AM EDT Respiratory Rate 14 06/03/2015 7:00 AM EDT Oxygen Saturation 99% 12/23/2024 8:52 AM EDT Inhaled Oxygen Concentration - - Weight 90 kg (198 lb 6.6 oz) 12/23/2024 8:52 AM EDT Height 175.3 cm (5' 9 ) 12/16/2024 8:45 AM EDT Body Mass Index 29.3 12/16/2024 8:45 AM EDT Plan of Treatment Upcoming Encounters Date Type Department Care Team (Late st Contact Info) Description 07/07/2025 8:30 AM EDT Office Visit Cardiology [address] [place] [address] Lev Ross DO [address] [place] [address] 6 month follow up 08/23/2025 8:15 AM EST Procedure Pulmonary Lab [address] [place] [address] Asthma with chronic obstructive pulmonary disease (COPD) ([facility]) [J44.89] 08/23/2025 8:30 AM EST Office Visit Pulmonary Medicine [address] [place] [address] [place] [address] [place], [place] [phone] Return in about 6 months (around 06/17/2025). Health Maintenance Due Date Last Done Comments Abdominal Aortic Aneurysm Screening 1950 Annual PCP Team Chronic Dise ase Visit 1970 Anxiety Screening 1970 Depression Screening 1970 Hepatitis C Screening 1970 CT Colonography 1997 Cologuard (FIT-DNA) 1997 Fecal Occult Blood 1997 Sigmoidoscopy 1997 RSV Vaccine (1 - Risk 60-74 years 1-dose series) 2012 Medicare Annual Wellness Visit 05/09/2017 DTaP,Tdap,Td Vaccine (2 - Td or Tdap) 02/19/2020 02/18/2010 Colonoscopy 05/31/2022 05/31/2021 Colorectal Cancer Screening 05/31/2022 Diabetes Screening 06/12/2024 06/12/2021, 0 06/02/2015, 05/17/2015 Advance Directive Discussion 09/08/2024 Influenza Vaccine (#1) 2025 , 07/23/2023, 07/18/2022, Additional history exists Lipid Screening 02/03/2029 02/04/2024, 06/12/2021 Shingrix Vaccine Completed 02/03/2019, , 08/20/2014 Pneumococcal Vaccine: 50+ Completed 08/25/2023, Procedures Procedure Name Priority Date/Time Associated Diagnosis Comments LVEF TRANSTHORACIC ECHO Routine 01/27/2025 8:01 AM EDT ECHO Routine 01/27/2025 8:01 AM EDT Paroxysmal atrial fibrillation (HCC) Murmur, cardiac LIPID PANEL, FASTING Routine 02/04/2024 8:14 AM EDT Mixed hyperlipidemia BASIC METABOLIC PANEL STAT 06/02/2015 9:52 PM EDT from Last 3 Months or Most Recently Relevant to Health Maintenance Results * ECHO (01/27/2025 8:01 AM EDT) 01/27/2025 8:01 AM EDT [facility] - 01/27/2025 12:30 PM EDT CONCLUSIONS: - Exam indication: Murmur - The left ventricle is normal in size. There is concentric left ventricular hypertrophy. Left ventricular systolic function is normal. EF = 61 5% (2D biplane) Grade I left ventricular diastolic dysfunction. - The right ventricle is normal in size. Right ventricular systolic function is normal. - The right atrial cavity is dilated. - The visualized aorta is dilated with a maximal dimension of 4.4 cm. - Mild AR (1+). - Estimated right ventricular systolic pressure is not reported due to an insufficient tricuspid regurgitation signal. Estimated right atrial pressure is 8 mmHg based on IVC assessment. - The patient has not had a prior CC echocardiographic exam for comparison. * * * Final * * * [facility] - 01/27/2025 12:30 PM EDT Echocardiography Report: Transthoracic Echo Formerly [facility], 1928–1983 Date of service: 01/27/2025 8:01:05 AM AND TRAINING COORDINATOR Ordering physician: LEV ROSS Indication: Murmur Technologist: Yasmin Perez Interpreting physician: Jorge Breen MD PATIENT: Name: MR. THOMAS MARTINEZ : 1950 Age: 74 years Gender: M Primary rhythm: sinus. Height: 175.30 cm BSA: 2.09 m Weight: 90.00 kg BMI: 29.3 kg/m Heart rate 59 bpm Blood pressure 132/70 mmHg Color Doppler was utilized to interrogate the cardiac valves assessed and spectral Doppler was utilized to determine the flow velocities and pressure gradients reported in this exam. MEASUREMENTS: Value Indexed Normal Max aortic dimension 4.4 cm Ao < 3.8 Left atrial volume 63 ml (4ch A-L) 30 ml/m Yg <= 34 LV ID (diastole) 5.1 cm (2D) 2.44 cm/m LV ID (systole) 2.5 cm (2D) 1.21 cm/m IVS, leaflet tips 1.6 cm (2D) Posterior wall thickness 1.2 cm (2D) Left ventricular mass 297 g (2D) 142 g/m LV stroke volume 69 ml (2D biplane) LV end diastolic volume 112 ml (2D biplane) 53.7 ml/m 34<=EDVi<75 LV end systolic volume 43 ml (2D biplane) 20.7 ml/m Ejection Fraction 61 % (2D biplane) EF > 52 FINDINGS: LEFT VENTRICLE The left ventricle is normal in size. There is concentric left ventricular hypertrophy. Left ventricular systolic function is normal. Grade I left ventricular diastolic dysfunction. Mitral annular lateral E/e': 7.6. Mitral annular septal E/e': 11.5. Wall Motion: All scored segments are normal. RIGHT VENTRICLE The right ventricle is normal in size. Right ventricular systolic function is normal. RV systolic tissue Doppler velocity is 13.3 cm/s. Tricuspid annular displacement is 3.7 cm. Estimated right ventricular systolic pressure is not reported due to an insufficient tricuspid regurgitation signal. Estimated right atrial pressure is 8 mmHg based on IVC assessment. LEFT ATRIUM The left atrial cavity is normal in size. Pulmonary Veins: The pulmonary venous pattern showed normal systolic flow. RIGHT ATRIUM The right atrial cavity is dilated. Inferior Vena Cava: The inferior vena cava appears normal measuring 1.1 cm. The vessel decreases less than 50 percent with inspiration. MITRAL VALVE There is trace mitral valve regurgitation. There is mild thickening. The pressure half time is 58 msec. The peak mitral E/A ratio is 0.90. The average mitral E/e' ratio is 9.5. The mitral flow deceleration time is 201 msec. TRICUSPID VALVE There is trace tricuspid valve regurgitation. There is no thickening. AORTIC VALVE There is mild (1+) aortic valve regurgitation. Tricuspid aortic valve. There is mild thickening. PULMONIC VALVE There is no pulmonic valve regurgitation. There is no thickening. AORTA The visualized aorta is dilated. Measurements - Aortic valve annulus 2.2 cm. Sinus: 3.6 cm. Mid ascending aorta 4.4 cm. INTERATRIAL SEPTUM There is no evidence of intracardiac shunting as detected by Doppler. INTERVENTRICULAR SEPTUM There is normal motion of the interventricular septum. There is no flow through the interventricular septum as detected by Doppler. PERICARDIUM There is no pericardial effusion. Lev Ross DO ECHO Final Result Performing Organization Address [facility] Co de Phone Number [facility] [address] [address] * LVEF TRANSTHORACIC ECHO (01/27/2025 8:01 AM EDT) LV Ejection Fraction 61 % [facility] [place] Comment: (2D biplane) EF > 52 An LV Ejection Fraction of > 50% is normal 01/27/2025 8:01 AM EDT Lev Ross DO LVEF RESULTS Final Result Performing Organization Address [facility] Co de Phone Number [facility] [address] [address] * LIPID PANEL BASIC (02/04/2024 8:14 AM EDT) Cholesterol, Total 170 <200 mg/dL 02/04/2024 11:19 PM EDT [facility] Comment: <200 mg/dL, Desirable 200-239 mg/dL, Borderline high >239 mg/dL, High Triglyceride 97 <150 mg/dL 02/04/2024 11:19 PM EDT [facility] Comment: <150 mg/dL, Normal 150-199 mg/dL, Borderline high 200-499 mg/dL, High >499 mg/dL, Very high HDL Cholesterol 57 >39 mg/dL 11:19 PM EDT [facility] Comment: 40-59 mg/dL, Acceptable >59 mg/dL, High: Negative risk factor for coronary heart disease <40 mg/dL, Low: Positive risk factor for coronary heart disease Non HDL Cholesterol 113 <130 mg/dL 02/04/2024 11:19 PM EDT [facility] Comment: <130 mg/dL, Optimal 130-159 mg/dL, Near optimal/above optimal 160-189 mg/dL, Borderline high 190-219 mg/dL, High >219 mg/dL, Very high Secondary prevention optimal non HDL Cholesterol levels are recommended to be <100 mg/dL Fasting Time 12 hrs 02/04/2024 11:19 PM T [facility] VLDL Cholesterol 19 <30 mg/dL 02/04/20 11:19 PM EDT [facility] TC:HDL Ratio 2.98 <5.10 02/04/2024 11:19 PM EDT [facility] LDL Cholesterol, Calculated 94 <100 mg/dL 02/04/2024 11:19 PM EDT [facility] Comment: <100 mg/dL, Optimal 100-129 mg/dL, Near optimal/above optimal 130-159 mg/dL, Borderline high 160-189 mg/dL, High >189 mg/dL, Very high Secondary prevention optimal LDL Cholesterol levels are recommended to be < 70 mg/dL LDL:HDL Ratio 1.65 <2.54 02/04/2024 11:19 PM T [facility] Comment: Reference: 1. National Cholesterol Education Program ATP III Guideline At-A-Glance Quick Desk Reference: National Heart, Lung, and Blood [place]. National Institutes of Health. 2001: NIH Publication No. 01-3305. 2. An International Atherosclerosis Society position paper: global recommendations for the management of dyslipidemia: executive summary, Atherosclerosis. 2014: 232(2):410-413. Blood BLOOD SPECIMEN / Unknown Venipuncture / Unknown 02/04/2024 8:14 AM EDT 02/04/2024 8:14 AM EDT Lev Ross DO LABORATORY Final Result [facility] [address] [facility] [address] [place] [address], [facility] [address] [place] [address] * (ABNORMAL) BASIC METABOLIC PNL (06/02/2015 9:52 PM EDT) Glucose 126(H) 65 - 100 mg/dL 06/02/2015 10:[address] [facility] BUN 13 10 - 25 mg/dL 06/02/2015 10:[address] [facility] Creatinine 0.91 0.70 - 1.40 mg/dL 06/02/2015 10:[address] [facility] Sodium 141 135 - 146 mmol/L 06/02/2015 10:[address] [facility] Potassium 4.4 3.5 - 5.0 mmol/L 06/02/2015 10:[address] [facility] Chloride 104 98 - 110 mmol/L 06/02/2015 10:[address] [facility] CO2 29 23 - 32 mmol/L 06/02/2015 10:[address] [facility] Anion Gap 8 0 - 15 mmol/L 06/02/2015 10:[address] [facility] Calcium 8.1(L) 8.5 - 10.5 mg/dL 06/02/2015 [facility] eGFR- >60 06/02/2015 10:[facility] eGFR-All Other Races >60 . 06/02/2015 10:[address] [facility] Comment: eGFR (Estimated GFR) Units of measure: mL/min/1.73 meters squared eGFR is derived from the reexpressed MDRD Study equation using the following parameters: serum creatinine, age, gender and race. The creatinine assay has been calibrated to be traceable to IDMS. An eGFR <60 mL/min/1.73m2 for >3 months is consistent with chronic kidney disease. Refer to KDOQI guidelines for clinical interpretation. In patients with unstable renal function, e.g. those with acute kidney injury, the eGFR may not accurately reflect actual GFR. Blood specimen (specimen) BLOOD SPECIMEN / Unknown 06/02/2015 9:52 PM EDT 06/02/2015 9:59 PM EDT Madonna Smith MD LABORATORY Final Result [facility] [address] [place] [address] from Last 3 Months or Most Recently Relevant to [place] [id number] Care Teams Vehicle Assembler Relationship Specialty Start Date End Date Mykel Daley DO [address] [facility] [address] [place] [address] PCP - General Family Medicine 03/02/15 Madonna Smith MD [address] [address] Primary Staff Physician Cardiology 11/24/18
--- OUTSIDE RECORDS SUMMARY | 2025-04-23 16:36 | XMS_ITS | CCD ---
Author Organization [facility] Care Team Providers Care Management Services Technician Name Role Phone Edi DO, Sole Bahena Primary Care Provider Madonna Smith MD Unavailable Edi, Sole Unavailable Myrna Link Unavailable Jeanette Longo Unavailable EdiSole singer DO Primary Care Provider Madonna Smith MD Unavailable Edi, DO Sole M. Primary Care Provider Edi, DO Sole M. Attending Provider Sole Daley DO Primary Care Provider Madonna Smith MD Unavailable Unavailable EDI, SOLE M Primary Care Physician Amna Anderson Unavailable Unavailable Edi, DO Sole M. Primary Care Provider MD Isreal Dahl Attending Provider Edi, DO Sole M. Primary Care Provider MD Isreal Dahl Attending Provider [phone] DO Lev Price Attending Provider Edi, DO Sole M. Primary Care Provider MD Isreal Dahl Attending Provider [phone] Edi, DO Sole M. Attending Provider Madonna Smith MD Unavailable Unavailable Edi, DO Sole M. Primary Care Provider Edi, DO Sole Ceron. Attending Provider MD Isreal Dahl Attending Provider [phone] Edi DO, Sole Bahena Primary Care Provider [phone] Edi DO, Sole M. Primary Care Provider Edi DO, Sole Ceron. Attending Provider [phone] Edi, Sole Ceron. Attending Unavailable Edi, Sole M. Admitting Unavailable Edi, Sole M. Primary Care Unavailable DahlIsreal Admitting Unavailable Dahl, Isreal Attending Unavailable Edi, Sole M. Primary Care Unavailable Edi, Sole Ceron. Attending Unavailable Edi, Sole M. Admitting Unavailable Edi, Sole M. Primary Care Unavailable Edi, Sole M. Attending Unavailable Edi, Sole Bell Admitting Unavailable Edi, Sole M. Primary Care Unavailable Edi, Sole M. Primary Care Unavailable Dahl, Isreal Admitting Unavailable Dahl, Isreal Attending Unavailable Dahl, Isreal Admitting Unavailable Dahl, Isreal Attending Unavailable Edi, Sole M. Primary Care Unavailable Carlos Enrique LEWIS Attending Unavailable DAHL, Isreal R Attending Unavailable DAHL, Isreal R Admitting Unavailable DAHL, Isreal R Attending Unavailable JOYA, SUMIR R Attending Unavailable UZAIR PAK JR Referring Unav ailable EDI, OBLONG BAHENA Primary Care Unavailable JOYA, SUMIR R Referring Unavailable EDI, OBLONG BAHENA Primary Care Unavailable LEV PRICE Attending Unavailable EDI, [facility] Primary Care Unavailable JOYA, SUMIR R Referring Unavailable EDI, OBLONG BAHENA Primary Care Unavailable JOYA, SUMIR R Attending Unavailable JOYA, SUMIR R Referring Unavailable EDI, [facility] Primary Care Unavailable LEV PRICE Attending Unavailable EDI, [facility] Primary Care Unavailable LEV PRICE Referring Unavailable EDI, [facility] Primary Care Unavailable LEV PRICE Referring Unavailable EDI, [facility] Primary Care Unavailable UZAIR PAK JR Referring Unav ailable EDI, [facility] Primary Care Unavailable UZAIR PAK JR Referring Unav ailable EDI, SOLE BAHENA Primary Care Unavailable Sole Daley MD Primary Care Provider PERFECTO KO Attending Unavailabl e Allergies Allergy Classification Reported Allergen(s) Allergy Type Date of Onset Reaction(s) Facility Propafenone (1 source) Propafenone Drug Allergy 03-13-2015 Other: See Comments [facility] Work Phone: Sotalol (1 source) Sotalol Drug Allergy 03-13-2015 Other: See Comments [facility] (19 sources) Propafenone; Translations: [PROPAFENONE] Drug Allergy 03-13-2015 Other: See Comments [facility] Work Phone: (19 sources) Sotalol; Translations: [SOTALOL] Drug Allergy 03-13-2015 Other: See Comments [facility] Work Phone: Medications Current Medications Medication Drug Class(es) Dates Sig (Normalized) Sig (Original) acetaminophen 325 mg oral tablet (20 sources) Start: 07-27-2024 take 2 tablets by mouth every six hours as needed Acetaminophen (Tylenol) 325 mg tablet Active 650 MG PO Every 6 hours as needed July 27, 2024 12:00am take 2 tablets by mouth every si x hours acetaminophen 325 mg / oxyCODONE hydrochloride 5 mg oral tablet (1 source) Opioid Agonist Start: 09-16-2023 End: 09-19-2023 take 1 tablet by mouth every six hours Percocet 5 mg-325 mg oral tablet 1 tab(s), Oral, q6hr for 3 day(s), 12 tab(s), Refill(s) 0, [facility] [id number], 175, cm, 09/16/23 3:54:00 EST, Height/Length Dosing, [...] 1-2 tabs q4hr PRN after the procedure, [facility] [id number], 179, cm, 03/04/23 7:43:00 EDT, Height/Length Dosing, 89, kg, 03/04/23 7:43:00 EDT, Weight Dosing Start Date: 03/17/23 Status: Ordered ascorbic acid 500 mg oral capsule (13 sources) Vitamin C Start: 07-27-2024 Ascorbic Acid (Vitamin C) 500 mg capsule Active 500 MG PO July 27, 2024 12:00am Start: 06-03-2016 Vitamin C See Instructions, Refills(s) 0, Prophylaxis Start Date: 06/03/16 Status: Ordered aspirin 81 mg delayed release oral tablet (20 sources) Platelet Aggregation Inhibitor, Nonsteroidal Anti-inflammatory Drug Start: 07-27-2024 take 1 tablet by mouth once daily Aspirin (Adult Aspirin Regimen) 81 mg tablet,delayed release (DR/EC) Active 81 MG PO Daily July 27, 2024 12:00am Start: 12-25-2015 End: 12-23-2024 take 1 tablet by mouth once daily aspirin, enteric coated (ECOTRIN) 325 mg EC tablet Take 1 tablet by mouth once daily. 1 tablet 0 12/25/2015 12/23/2024 Discontinued (Other) Start: 02-27-2010 take 81 mg by mouth once daily aspirin 81 mg, Oral, Daily, Refills(s) 0, Prophylaxis Start Date: 02/27/10 Status: Ordered Start: 02-27-2010 take 325 mg by mouth once georgette y aspirin 325 mg, Oral, Daily, Refills(s) 0, Prophylaxis Start Date: 02/27/10 Status: Ordered take 1 tablet by alcon th three times weekly Aspirin 325 mg 325 mg one tab orally Three times a week Active take 1 tablet by alcon th once daily Aspirin 325 mg 325 mg one tab orally daily Active Comment on above: Take 1 tablet by alcon th once daily. atorvastatin 20 mg oral tablet (20 sources) HMG-CoA Reductase Inhibitor End: 11-30-19 atorvastatin (Lipitor) 20 MG tablet Atorvastatin Calcium Active Comment on above: Take 20 mg by mouth once daily. azithromycin 250 mg oral tablet (3 sources) Macrolide Antimicrobial Start: 03-13-20 Azithromycin 250 MG 2 tablets on the first day, then 1 tablet daily for 4 days Orally Once a day for 5 day(s) Mar, Active Budesonide / formoterol (7 sources) Corticosteroid, beta2-Adrenergic Agonist Start: 01-11-20 End: 04-10-20 take 2 puff(s) by inhalation twice daily budesonide-formoter ol (SYMBICORT) 160-4.5 mcg/actuation inhaler Indications: Asthma with chronic obstructive pulmonary disease (COPD) ([facility]) Inhale 2 puffs as instructed two times a day. 11 g 2 01/10/2025 04/10/2025 Active Start: 12-16-2024 End: 01-10-2025 take 2 puff(s) by inhalation twice daily budesonide-formoterol (SYMBICORT) 160-4.5 mcg/actuation inhaler Indications: Asthma with chronic obstructive pulmonary disease (COPD) ([facility]) Inhale 2 puffs as instructed two times a day. 11 g 12/16/2024 01/10/2025 Discontinued Start: 12-16-2024 End: 03-16-2025 take 2 puff(s) by inhalation twice daily budesonide-formoterol (SYMBICORT) 160-4.5 mcg/actuation inhaler Indications: Asthma with chronic obstructive pulmonary disease (COPD) ([facility]) Inhale 2 puffs as instructed two times a day. 11 g 12/16/2024 03/16/2025 Active take 2 puff(s) by [facility] twice daily budesonide-formoterol (Symbicort) 160-4.5 MCG/ACT inhaler INHALE 2 PUFFS BY MOUTH INTO THE LUNGS DIRECTED TWO TIMES A DAY Active Centrum (19 sources) take 1 tablet by mouth once georgette y take 1 tablet by mouth once georgette y Centrum 1 tablet for men Orally Daily Active Centrum Men's (9 sources) Start: 05-31-2016 take 1 tablet by mouth once daily Centrum Men's 1 tab(s), Oral, Daily, Refill(s) 0, Prophylaxis Start Date: 05/31/16 Status: Ordered cephalexin 500 mg oral capsule (1 source) Cephalosporin Antibacterial Start: 09-16-2023 take 1 capsule by mouth twice daily Keflex 500 mg Cap 500 mg = 1 cap(s), Oral, BID, # 14 cap(s), Refills(s) 0, Pharmacy: [facility] [id number], 175, cm, 09/16/23 3:54:00 EST, Height/Length Dosing, 87.5, kg, 09/16/23 3:54:00 EST, Weight Dosing Start Date: 09/16/23 Status: Ordered ciprofloxacin 500 mg oral tablet (4 sources) Quinolone Antimicrobial Start: 03-17-2023 take 1 tablet by mouth twice daily Cipro 500 mg Tab 500 mg = 1 tab(s), Oral, BID, Start 3 days prior to the procedure, # 14 tab(s), Refills(s) 0, Pharmacy: [facility] [id number], 179, cm, 03/04/23 7:43:00 EDT, Height/Length Dosing, 89, kg, 03/04/23 7:43:00 EDT, Weight Dosing Start Date: 03/17/23 Status: Ordered Start: 02-17-2023 take 1 tablet by alcon th once daily Cipro 500 mg Tab 500 mg = 1 tab(s), Oral, As Directed, Take 1 tab the day prior to procedure then 1 tab the day of procedure after procedure is complete, # 2 tab(s), Refills(s) 0, Pharmacy: [facility] [id number], 179, cm, 02/17/23 10:13:00 EDT, Height/Length Dosing... Start Date: 02/17/23 Status: Ordered dexamethasone 0.001 mg/mg / neomycin 0.0035 mg/mg / polymyxin b 10 unt/mg ophthalmic ointment (2 sources) Aminoglycoside Antibacterial, Polymyxin-class Antibacterial, Corticosteroid Start: 01-05-2025 wqrjepkg-nsrllruiw-glnRKVMEf sone (Polydex) 3.5-98131-5.1 ointment ophthalmic ointment 01/05/2025 Active diazePAM 10 mg oral tablet (1 source) Benzodiazepine Start: 03-17-2023 Valium 10 mg Tab 10 mg = 1 tab(s), Oral, Once, Take one hour prior to procedure, # 1 tab(s), Refills(s) 0, Pharmacy: [facility] [id number], 179, cm, 03/04/23 7:43:00 EDT, Height/Length Dosing, 89, kg, 03/04/23 7:43:00 EDT, Weight Dosing Start Date: 03/17/23 Status: Ordered Fiber (9 sources) Start: 05-31-2016 Fiber Lax 2 grams, Oral, Marcos ly, Refills(s) 0, Prophylaxis Start Date: 05/31/16 Status: Ordered Fiber Therapy 500 mg (11 sources) take 2 tablets by mouth twice daily Fiber Therapy 500 mg 2 tablets Orally Twice a day Active 60 actuat fluticasone propionate 0.25 mg/actuat / salmeterol 0.05 mg/actuat dry powder inhaler (12 sources) Corticosteroid, beta2-Adrenergic Agonist Start: 11-18-2024 take 1 puff(s) by inhalation twice daily Fluticasone-Salmeterol 250-50 MCG/ACT aerosol powder INHALE 1 PUFF INSTRUCTED TWO TIMES A DAY. 11/18/2024 Active Start: 09-16-2024 End: 01-10-2025 take 1 puff(s) by inhalation twice daily fluticasone-salmeterol (ADVAIR, WIXELA) 250-50 mcg/dose inhaler Indications: Asthma with chronic obstructive pulmonary disease (COPD) (HCC) Inhale 1 Puff as instructed two times a day. 60 Each 2 09/16/2024 01/10/2025 Discontinued (Course of therapy completed) Start: 09-16-2024 take 1 puff(s) by in halation twice daily fluticasone-salmeterol (ADVAIR, WIXELA) 250-50 mcg/dose inhaler Indications: Asthma with chronic obstructive pulmonary disease (COPD) (HCC) Inhale 1 Puff as instructed two times a day. 60 Each 2 09/16/2024 Active Start: 07-27-2024 Fluticasone Pr opion-Salmeterol 250-50 mcg/dose blister with device Active 1 INH INHALATION Twice daily July 27, 2024 12:00am Start: 06-22-2024 End: 09-16-2024 take 1 puff(s) by inhalation twice daily fluticasone-salmeterol (ADVAIR, WIXELA) 250-50 mcg/dose inhaler Indications: Asthma with chronic obstructive pulmonary disease (COPD) (HCC) Inhale 1 Puff as instructed two times a day. 60 Each 2 06/22/2024 09/16/2024 Discontinued Start: 06-16-2024 take 2 puff(s) by in halation twice daily fluticasone-salmeterol HFA (ADVAIR) 230-21 mcg/actuation inhaler Indications: Asthma with chronic obstructive pulmonary disease (COPD) ([facility]) Inhale 2 Puffs as instructed two times a day. 12 g 2 06/16/2024 Active 30 actuat fluticasone furoate 0.1 mg/actuat / umeclidinium 0.0625 mg/actuat / vilanterol 0.025 mg/actuat dry powder inhaler (2 sources) Anticholinergic, Corticosteroid, beta2-Adrenergic Agonist take 1 puff(s) by inhalation once daily Trelegy Ellipta 100-62.5-25 MCG/ACT 1 puff Inhalation Once a day Active ibuprofen 200 mg oral tablet (20 sources) Nonsteroidal Anti-inflammatory Drug Start: take 1 tablet by mouth three times daily as needed Ibuprofen 200 mg tablet Active 200 MG PO Three times daily as needed July 27, 2024 12:00am take 1 tablet by mouth three juan a es daily at mealtime as needed levothyroxine sodium 0.075 mg oral tablet (20 sources) l-Thyroxine Start: 02-01-2025 levothyroxine (Synthroid, Levoxyl) 75 MCG tablet 02/01/2025 Active Start: 08-02-2024 take 1 tablet by alcon once daily Levothyroxine 75 mcg tablet Active 75 MCG PO Daily August 02, 2024 4:22pm Start: 07-27-2024 End: 08-02-2024 take 1 tablet by mouth once daily Levothyroxine 50 mcg tablet Discontinued 50 MCG PO Daily July 27, 2024 8:59am August 02, 2024 4:23pm Start: 04-12-2024 End: 07-27-2024 take 1 tablet by mouth once daily Levothyroxine 50 mcg tablet Discontinued 0 .ROUTE .COMPLEX July 12, 2024 4:52pm July 27, 2024 9:01am TAKE 1 TABLET BY MOUTH DAILY Start: 01-12-2024 End: 04-12-2024 take 1 tablet by mouth once daily Levothyroxine 50 mcg tablet Discontinued 0 .ROUTE .COMPLEX 90 January 12, 2024 11:43am April 12, 2024 11:34am TAKE 1 TABLET BY MOUTH DAILY Start: 01-12-2024 End: 04-12-2024 take 1 tablet by mouth once daily Levothyroxine Discontinued 0 .ROUTE .COMPLEX 90 January 12, 2024 12:43pm April 12, 2024 12:34pm TAKE 1 TABLET BY MOUTH DAILY Start: 01-12-2024 End: 01-12-2024 take 1 tablet by mouth once daily Levothyroxine 50 mcg tablet Discontinued 1 TAB PO Daily January 11, 2024 11:00pm January 12, 2024 11:43am FreeTextSi tablet Orally Once a day; Note: Source Status: Taking; Refills: 1; Qty: 90 Tablet; Provider: Edi Ceron Start: 05-31-2016 levothyroxine 125 microgram, Oral, Daily, Refills(s) 0, Thyroid Start Date: 05/31/16 Status: Ordered take 1 tablet by alcon th once daily levothyroxine (SYNTHROID) 25 mcg tablet Take 25 mcg by mouth once daily. Active take 1 tablet by alcon th every twenty-four hours take 1 tablet by alcon th every twenty-four hours Levothyroxine Sodium 50 MCG 1 tablet Orally Once a day for 90 days Active Comment on above: Take 25 mcg by mouth once daily. losartan potassium 25 mg oral tablet (20 sources) Angiotensin 2 Receptor Ad Start: 05-11-2024 Losartan Active MG PO May 11, 2024 12:00am Start: 02-07-2023 End: 02-14-2025 take 1 tablet by mouth in the morning losartan (Cozaar) 25 MG tablet Take 25 mg by mouth in the morning. 02/14/2025 Active Comment on above: Take 1 tablet by alcon th once daily. methylcellulose 500 mg oral tablet (20 sources) Methylcellulose, Laxative, 500 MG tablet Take by mouth every 12 (twelve) hours Active take 1 tablet by alcon th every twelve hours Methylcellulose, Laxative, (FIBER THERAPY, M-CELLULOSE,) 500 mg tab Take by mouth q 12 HR. Active End: 06-17-2024 take 2 tablets by mouth once daily Methylcellulose, Laxative, 500 mg tab Take 1,000 mg by mouth once daily. 06/17/2024 Discontinued take 2 tablets by mo [facility] every twelve hours Comment on above: Take 1,000 mg by alcon th once daily. Take by mouth q 12 H R. Multiple Vitamins-Minerals (Centrum Adult 50+ MultiGummies) chewable tablet (2 sources) Multiple Vitamins-Minerals (Centrum Adult 50+ MultiGummies) chewable tablet Centrum Active MULTIVITS,CA,MIN/IRON/ FA/LYCOP (CENTRUM MEN ORAL) (19 sources) take 1 tablet by mouth once daily MULTIVITS,CA,MIN/IRON /FA/LYCOP (CENTRUM MEN ORAL) Take 1 tablet by mouth once daily. Active take 1 tablet by alcon th once daily MULTIVITS,CA,MIN/IRON/FA/LYCOP (CENTRUM MEN ORAL) Take 1 tablet by mouth once daily. 0 Active Comment on above: Take 1 tablet by alcon th once daily. oxybutynin chloride 5 mg oral tablet (1 source) Cholinergic Muscarinic Antagonist Start: 4 End: 5 take 1 tablet by mouth once daily oxybutynin 5 mg Tab 5 mg = 1 tab(s), Oral, Daily, X 90 day(s), # 90 tab(s), Refills(s) 3, Pharmacy: [facility] [id number], 175, cm, 09/16/23 3:54:00 EST, Height/Length Dosing, 87.5, kg, 09/16/23 3:54:00 EST, Weight Dosing Start Date: 12/08/23 Stop Date: 12/02/24 Status: Ordered predniSONE 20 mg oral tablet (2 sources) Start: 4 take 3 tablets by mouth every twenty-four hours Psyllium Husk (Daily Fiber) 0.4 gram capsule (2 sources) Start: 4 Psyllium Husk (Daily Fiber) 0.4 gram capsule Active 0.4 GM PO Daily July 27, 2024 12:00am rosuvastatin calcium 20 mg oral tablet (20 sources) HMG-CoA Reductase Inhibitor Start: 4 take 2 tablets by mouth once daily Rosuvastatin 20 mg tablet Active 40 MG PO Daily July 27, 2024 9:00am Start: 06-17-2024 take 1 tablet by alcon th at bedtime rosuvastatin (Crestor) 40 MG tablet Take 40 mg by mouth at bedtime 06/17/2024 Active Start: 05-11-2024 Rosuvastatin A ctive MG PO May 11, 2024 12:00am Start: 11-29-2022 End: 07-27-2024 rosuvastatin (Crestor) 20 MG tablet 05/16/2024 Active Comment on above: Take 1 tablet by alcon th daily at bedtime. take one tablet by m outh every night at bedtime Saw Buena 450 MG (19 sources) take 1 capsule by mo uth twice daily take 1 capsule by mouth twice da marlen Saw Buena 450 MG One capsule Orally Twice Daily Active Saw Buena (10 sources) Start: 07-27-2024 take 1 capsule by mo uth twice daily at mealtime Saw Buena 450 mg capsule Active 450 MG PO Twice daily July 27, 2024 12:00am give with food (meal/snack) Start: 05-31-2016 take 450 mg by mouth once georgette y saw palmetto 450 mg, Oral, Daily, Refill(s) 0, Prophylaxis Start Date: 05/31/16 Status: Ordered SAW PALMETTO ORAL (18 sources) SAW PALMETTO ORA L Take by mouth twice daily. Take one tab po bid Active SAW PALMETTO ORA L Take by mouth twice daily. Take one tab po bid 0 Active Comment on above: Take by mouth twice daily. Take one tab po bid tamsulosin hydrochloride 0.4 mg oral capsule (2 sources) alpha-Adrenergic Ad Start: 06-14-2023 take 1 capsule by mouth once daily Flomax 0.4 mg Cap 0.4 mg = 1 cap(s), Oral, Daily, # 10 cap(s), Refills(s) 0, Pharmacy: [facility] [id number], 175, cm, 09/16/23 3:54:00 EST, Height/Length Dosing, 87.5, kg, 09/16/23 3:54:00 EST, Weight Dosing Start Date: 09/16/23 Status: Ordered Vitamin C 500 MG (17 sources) Vitamin C 500 MG Orally Active Wixela Inhub (1 source) Start: 06-23-2024 Wixela Inhub Inhalation, BID, Refill(s) 0 Start Date: 06/23/24 Status: Ordered Zofran ODT 4 mg Tab-Dis (3 sources) Start: 09-16-2023 take 1 tablet by mouth every eight hours Zofran ODT 4 mg Tab-Dis 4 mg = 1 tab(s), Oral, q8hr, # 12 tab(s), Refills(s) 0, Pharmacy: [facility] [id number], 175, cm, 09/16/23 3:54:00 EST, Height/Length Dosing, 87.5, kg, 09/16/23 3:54:00 EST, Weight Dosing Start Date: 09/16/23 Status: Ordered Completed/Discontinued Medications Medication Drug Class(es) Dates Sig (Normalized) Sig (Original) amoxicillin 875 mg oral tablet (2 sources) Penicillin-class Antibacterial Start: 05-11-2024 End: 07-27-2024 take 1 tablet by mouth twice daily Amoxicillin 875 mg tablet Discontinued 875 MG PO Twice daily 14 May 10, 2024 11:00pm July 27, 2024 8:59am cholecalciferol 0.125 mg oral capsule (20 sources) Vitamin D Start: 07-27-2024 End: 07-27-2024 take 1 capsule by mouth once daily Cholecalciferol (Vitamin D3) 125 mcg (5,000 unit) capsule Discontinued 125 MCG PO Daily July 27, 2024 12:00am July 27, 2024 8:59am End: 12-23-2024 cholecalciferol, vitamin D3, 350 mcg (14,000 unit) cap Take by mouth. 12/23/2024 Discontinued (Other) take 1 capsule by [facility] every twenty-four hours Comment on above: Take by mouth. fluticasone propionate 0.05 mg/actuat metered dose nasal spray (4 sources) Corticosteroid Start: take 2 spray(s) nasal route once daily Fluticasone Propionate 50 MCG/ACT 2 spray in each nostril Nasally Once a day for 30 day(s) Mar, Not-Taking 60 actuat formoterol fumarate 0.005 mg/actuat / mometasone furoate 0.2 mg/actuat metered dose inhaler (2 sources) Corticosteroid, beta2-Adrenergic Agonist Start: End: take 2 puff(s) by inhalation twice daily mometasone-formoter ol (DULERA) 200-5 mcg/actuation inhaler Indications: Asthma with chronic obstructive pulmonary disease (COPD) ([facility]) Inhale 2 Puffs as instructed two times a day. 18 g 2 06/08/2024 06/16/2024 Discontinued K-Effervescent 25 mEq oral tablet, effervescent (2 sources) Start: End: take 1 tablet by mouth twice daily K-Effervescent 25 mEq oral tablet, effervescent 25 mEq = 1 tab(s), Oral, BID, X 30 day(s), # 60 tab(s), Refills(s) 11, Pharmacy: [facility] #[id number], 175, cm, 09/16/23 3:54:00 EST, Height/Length Dosing, 87.5, kg, 09/16/23 3:54:00 EST, Weight Dosing Start Date: 02/13/24 Stop Date: 02/07/25 Status: Ordered Start: 11-26-2023 End: 11-20-2024 take 1 tablet by mouth twice daily K-Effervescent 25 mEq oral tablet, effervescent 25 mEq = 1 tab(s), Oral, BID, X 30 day(s), # 60 tab(s), Refills(s) 11, Pharmacy: [facility] [id number], 175, cm, 09/16/23 3:54:00 EST, Height/Length Dosing, 87.5, kg, 09/16/23 3:54:00 EST, Weight Dosing Start Date: 11/26/23 Stop Date: 11/20/24 Status: Ordered meloxicam 15 mg oral tablet (2 sources) Nonsteroidal Anti-inflammatory Drug End: 05-07-2022 take 1 tablet by mouth once daily meloxicam (MOBIC) 15 mg tablet Take 15 mg by mouth once daily. 0 05/07/2022 Discontinued Comment on above: Take 15 mg by mouth once daily. Barto-3 Fatty Acids 500 mg cap (11 sources) End: 06-17-2024 take 1 capsule by mouth once daily Barto-3 Fatty Acids 500 mg cap Take 500 mg by mouth once daily. 06/17/2024 Discontinued take 1 capsule by mouth once marcos ly Barto-3 Fatty Acids 500 mg cap Take 500 mg by mouth once daily. Active take 1 capsule by mouth once marcos ly Barto-3 Fatty Acids 500 mg cap Take 500 mg by mouth once daily. 0 Active Comment on above: Take 500 mg by mouth once daily. vcerscw-byah-eldpl-ore g-capryl 100 mg-150 mg- 50 mg-150 mg cap (11 sources) End: 06-17-2024 tzyygva-rzzy-deoih-oreg-ca pryl 100 mg-150 mg- 50 mg-150 mg cap Take by mouth. 06/17/2024 Discontinued goixjae-graw-gzz cj-cnts-xzwqkr 100 mg-150 mg- 50 mg-150 mg cap Take by mouth. Active zdovkda-igct-rlk nw-fyfl-fabwjh 100 mg-150 mg- 50 mg-150 mg cap Take by mouth. 0 Active Comment on above: Take by mouth. Problems Active Problems Problem Classification Problem Date Documented Da te Episodic/Chronic Acquired foot deformities (4 sources) Hallux valgus (acquired), right foot; Translations: [Hallux valgus (acquired)] 03-02-2025 Chronic Asthma (7 sources) Asthma-chronic obstructive pulmonary disease overlap syndrome; Translations: [Asthma with chronic obstructive pulmonary disease (COPD) (HCC)] 06-08-2024 Chronic Cardiac dysrhythmias (20 sources) Atrial fibrillation; Translations: [Unspecified atrial fibrillation] Onset: 02-27-2010 03-13-2015 Chronic Chronic obstructive pulmonary disease and bronchiectasis (1 source) Chronic obstructive lung disease; Translations: [Chronic obstructive pulmonary disease, unspecified] 12-16-2024 Chronic Chronic obstructive pulmonary disease and bronchiectasis (1 source) Chronic obstructive pulmonary disease and bronchiectasis; Translations: [Asthma with chronic obstructive pulmonary disease (COPD) (HCC)] Onset: 06-08-2024 Diabetes mellitus without complication (20 sources) Impaired fasting glycemia; Translations: [Impaired fasting glucose] Onset: 06-04-2021 Resolved: 06-04-2021 Episodic Disorders of lipid metabolism (20 sources) Pure hypercholesterolemi a; Translations: [Pure hypercholesterolemi a, unspecified] Onset: 06-04-2021 Resolved: 06-04-2021 Chronic Diverticulosis and diverticulitis (9 sources) Diverticular disease 06-14-2021 Chronic Essential hypertension (6 sources) Essential hypertension; Translations: [Essential (primary) hypertension] Onset: 12-23-2024 Chronic Genitourinary symptoms and ill-defined conditions (20 sources) Blood in urine; Translations: [Gross hematuria] Onset: 04-07-2023 Episodic Heart valve disorders (3 sources) Heart murmur; Translations: [Cardiac murmur, unspecified] Onset: 12-23-2024 12-23-2024 Episodic Hemorrhoids (9 sources) Hemorrhoids 06-14-2021 Episodic Hyperplasia of prostate (15 sources) Benign prostatic hypertrophy with outflow obstruction; Translations: [Benign prostatic hyperplasia with lower urinary tract symptoms] Onset: 02-17-2023 Chronic Immunizations and screening for infectious disease (3 sources) Encounter for immunization; Translations: [Flu vaccine need Z23] Onset: 06-04-2021 Resolved: 06-04-2021 Episodic Malaise and fatigue (1 source) Other fatigue Episodic Mycoses (20 sources) Onychomycosis; Translations: [Tinea unguium] 03-02-2025 Episodic Osteoarthritis (9 sources) Arthritis 02-17-2023 Chronic Other and unspecified benign neoplasm (9 sources) History of polyp of colon 05-22-2021 Episodic Other and unspecified benign neoplasm (9 sources) Polyp of colon 06-14-2021 Episodic Other circulatory disease (1 source) Elevated blood-pressure reading without diagnosis of hypertension; Translations: [Elevated blood-pressure reading, without diagnosis of hypertension] Episodic Other connective tissue disease (9 sources) H/O: arthritis 02-13-2010 Episodic Other connective tissue disease (9 sources) Rotator cuff syndrome 11-19-2013 Episodic Other connective tissue disease (2 sources) Pain of toes of bilateral feet; Translations: [Pain in right toe(s)] 03-02-2025 Episodic Other diseases of bladder and urethra (2 sources) Detrusor overactivity; Translations: [Overactive bladder] Onset: 11-26-2023 Chronic Other diseases of bladder and urethra (3 sources) Overactive bladder 11-26-2023 Chronic Other diseases of kidney and ureters (2 sources) Urinary tract obstruction; Translations: [Other obstructive and reflux uropathy] Onset: 02-17-2023 Episodic Other lower respiratory disease (20 sources) Solitary nodule of lung; Translations: [Solitary pulmonary nodule] Episodic Other lower respiratory disease (1 source) Shortness of breath Episodic Other lower respiratory disease (2 sources) Wheezing; Translations: [Wheezing] 06-08-2024 Episodic Other lower respiratory disease (1 source) Dyspnea; Translations: [Shortness of breath] 06-08-2024 Episodic Other lower respiratory disease (1 source) Multiple nodules of lung; Translations: [Other nonspecific abnormal finding of lung field] 06-08-2024 Episodic Other nutritional; endocrine; and metabolic disorders (4 sources) Body mass index 25-29 - overweight; Translations: [Overweight] Episodic Other nutritional; endocrine; and metabolic disorders (1 source) Overweight; Translations: [Overweight (BMI 25.0-29.9)] Onset: 12-23-2024 Episodic Other screening for suspected conditions (not mental disorders or infectious disease) (3 sources) Encounter for screening for malignant neoplasm of prostate; Translations: [Prostate cancer screening Z12.5] Onset: 06-04-2021 Resolved: 06-04-2021 Episodic Other upper respiratory disease (1 source) Seasonal allergic rhinitis; Translations: [Other seasonal allergic rhinitis] 12-16-2024 Chronic Other upper respiratory infections (3 sources) Sore throat symptom; Translations: [Acute pharyngitis, unspecified] 05-11-2024 Episodic Screening and history of mental health and substance abuse codes (1 source) Ex-smoker; Translations: [Personal history of nicotine dependence] 06-08-2024 Episodic Thyroid disorders (14 sources) Hyperthyroidism; Translations: [Hypothyroidism] Onset: 07-29-2024 02-17-2023 Chronic Unclassified (3 sources) Urine finding 11-26-2023 Past or Other Problems Problem Classification Problem Date Documented Date Episodic/Chronic Calculus of urinary tract (11 sources) Kidney stone; Translations: [Calculus of kidney] Onset: 09-16-2023 Episodic Other circulatory disease (1 source) Elevated blood-pressure reading, without diagnosis of hypertension; Translations: [Elevated blood pressure reading without diagnosis of hypertension R03.0] Onset: 06-04-2021 Resolved: 06-04-2021 Episodic Other lower respiratory disease (2 sources) Unspecified acute lower respiratory infection Onset: 03-13-2022 Resolved: 03-20-2022 Episodic Other lower respiratory disease (1 source) Shortness of breath; Translations: [Shortness of breath] Onset: 10-20-2023 Episodic Other lower respiratory disease (1 source) Wheezing; Translations: [Wheezing] Onset: 06-08-2024 Episodic Unclassified (1 source) Cough R05.9 Onset: 04-08-2022 Resolved: 04-08-2022 Unclassified (9 sources) Aspirin prophylaxis 02-13-2010 Unclassified (9 sources) shoulder problems 02-18-2010 Unclassified (4 sources) Obstructive hydronephrosis 06-18-2023 Viral infection (1 source) COVID-19 Onset: 04-08-2022 Resolved: 04-08-2022 Results Test Name Value Interpretation Reference Range Facility ECHOon 01-27-2025 Echocardiography Echocardiography Rep ort: Transthoracic Echo Formerly [facility] Date of service: 01/27/2025 8:01:05 AM SERVICES SUPERVISOR Ordering physician: LEV PRICE Indication: Murmur Technologist: Yasmin Perez Interpreting physician: Jorge Breen MD PATIENT: Name: MR. MONTSE MARTINEZ : 1950 Age: 74 years Gender: [...] Doppler. PERICARDIUM There is no pericardial effusion. CONCLUSIONS: - Exam indication: Murmur - The [...] * * * Final * * * CC [facility] Image : [id number] Normal [facility] CNOVon 12-23-2024 CNOV Office Visit (CARDLO ) -- MONTSE MARTINEZ Marya ([id number]) 1950 M Date Time Provider Department 12/23/24 9:00 AM LEV PRICE During your visit today, we recorded the following information about you: Pulse Blood pressure Weight 61/minute 138/85 90 kg Lev Price DO 12/23/2024 10:04 AM Signed [facility] SE[facility] OF [facility]IONAL CARDIOLOGY OUTPATIENT VISIT DATE December 23, 2024 OUTPATIENT VISIT TYPE ESTABLISHED PRIMARY CARE PHYSICIAN: Sole Daley [address] [place] [address] [address] [place] [address] CHIEF COMPLAINT: Arrhythmia HISTORY OF PRESENT ILLNESS: Mr. Martinez is a 74 year old male with a past medical history of atrial fibrillation status post PVI, HLD, hypothyroid. I saw him previously on 06/17/24, per that note: ...he had some shortness of breath which he attributes to asthma/COPD. He is supposed to obtain an inhaler yet, the mendiola was expensive. He denies having any: chest pain, palpitations, orthopnea, LE edema, presyncope/syncope, N/V, bleeding, or other significant symptoms. Today, The patient reports feeling pretty good overall, with improvement in his voice and general well-being after switching from a powder inhaler to a mist inhaler about a week ago. He experiences mild dyspnea, which he attributes to a pulmonary issue, and notes that his walking distance has increased since the inhaler change. He denies any palpitations or sensations of atrial fibrillation recurrence. He reports occasional mild leg cramps at night while lying in bed, which resolve easily. He denies any significant discomfort. He monitors his blood pressure at home using a wrist cuff, with recent readings around 126/66 mmHg. He notes that his blood pressure is often higher during clinic visits. He is eating vegetables daily. He consumes about two cups of half-caffeinated coffee daily and adds sugar. He denies alcohol, tobacco, and marijuana use, noting he has abstained for 36 years. He walks three times a week and engages in yard work. He tries to eat vegetables daily. He attempts to walk 2-3 miles 3x a week. His LDL cholesterol was 94 mg/dL in 01/2024. He is currently taking losartan 25 mg daily. Family, Mother had an enlarged heart. Brother had an MO when he was 74 years of age. 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 IMPRESSION: Encounter Diagnosis ICD-10-CM 1. Paroxysmal atrial fibrillation (HCC) I48.0 ECG COMPLETE OUTSIDE VENDOR CARDIAC OUTPATIENT EXTENDED RHYTHM RECORDING (WITHOUT TELEMETRY) BASIC METABOLIC PANEL COMPLETE BLOOD COUNT ECHO perflutren lipid microspheres 1.3 mL in NaCl (PF) 0.9% 10 mL injection (DEFINITY) sodium chloride 0.9 % (flush) 10 mL (BD POSIFLUSH) 2. Primary hypertension I10 3. Mixed hyperlipidemia E78.2 LIPID PANEL, FASTING 4. Murmur, cardiac R01.1 ECHO perflutren lipid microspheres 1.3 mL in NaCl (PF) 0.9% 10 mL injection (DEFINITY) sodium chloride 0.9 % (flush) 10 mL (BD POSIFLUSH) 5. Overweight (BMI 25.0-29.9) E66.3 PLAN AND RECOMMENDATIONS: 1. Paroxysmal atrial fibrillation (HCC) (I48.0) Hx of PVI in 2014. No current symptoms of palpitations or arrhythmia. EKG shows normal sinus rhythm with bradycardia. Prophylactic aspirin presently until he has any recurrence of AF. - Ordered Zio patch monitor for 3 days to detect any episodes of AFib. - If AFib is detected, patient to follow up with Dr. Mike for further evaluation and potential ablation. 2. Primary hypertension (I10) Goal BP less than 130/80 mmHg. Blood pressure reading today is 136/82 mmHg. Currently on losartan 25 mg daily, which is a reduced dose from the previous 50 mg daily. - Continue losartan 25 mg daily. - Monitor blood pressure at home daily for 2 weeks, ensuring measurements are taken on bare skin. - Report average systolic blood pressure; if consistently above 130 mmHg, consider increasing losartan back to 50 mg daily. 3. Mixed hyperlipidemia (E78.2) LDL cholesterol was 94 mg/dL in January 2024; target LDL is less than 70 mg/dL. - Ordered lipid panel; patient advised to perform fasting for 12 hours prior to the test for optimal results. - If muscle cramping worsens may need to consider changing statin medication. - Patient to schedule and complete the lab work at any [facility] location. 4. Murmur, cardiac (R01.1) Audible murmur on auscultation; no recent echocardiogram on record. - Ordered echocardiogram to evaluate the murmur further. - Patient to schedule the echocardiogram at the clinic. 5. Overweight (BMI 25.0-29.9) (E66.3) Maintains a healthy diet and exercises by walking three times a week. PHYSICAL EXAMINATION: BP 138/85 Pulse 61 Wt 90 kg (198 lb 6.6 oz) SpO2 99% BMI 29.30 kg/m? General: No apparent distress HEENT: normocephalic, EOMI, no JVD, no carotid br (more content not included)... Normal [facility] ECG COMPLETEon 12-23-2024 ECG COMPLETE Ventricular Rate : 5 8 BPM Atrial Rate : 58 BPM P-R Interval : 194 ms QRS Duration : 100 ms Q-T Interval : 410 ms QTC Calculation(Bazett) : 402 ms Calculated P Belle : 60 degrees Calculated R Belle : 63 degrees Calculated T Belle : 52 degrees SINUS BRADYCARDIA OTHERWISE NORMAL ECG Confirmed by HARSHA GARCIA MD ([id number]) on 12/24/2024 11:44:28 AM NAME : MONTSE MARTINEZ PID : [id number] : 1950 Gender : Male Race : ORD : [id number] Procedure Date : Dec 23 2024 08:53:54 Edit Date : Dec 24 2024 11:44:33 Diagnosis: SINUS BRADYCARDIA OTHERWISE NORMAL ECG Confirmed by HARSHA GARCIA MD ([id number]) on 12/24/2024 11:44:28 AM Test Reason : I48.0 Paroxysmal atrial fibrillation (HCC) Location : 145 : [facility]ARD Overread By : HARSHA GARCIA MD Edited By : HARSHA GARCIA MD Referred By : , Acquired by : , Lucille [facility] CNOVon 12-16-2024 CNOV Office Visit (PULMLO ) -- MICHELLEMONTSE Malhotra ([id number]) 1950 M Date Time Provider Department 12/16/24 8:30 AM PATRICK HINSON PULCRISTY During your visit today, we recorded the following information about you: Pulse Blood pressure Weight Height 67/minute 123/66 89 kg 1.753 m Patrick Hinson MD 12/16/2024 12:11 PM Signed . [facility] Follow Up Visit Note Mr. Martinez is a 74 year old male who presents to the [facility] for follow up of cough. HPI: 74 year old male with a history relevant for: Former smoker, 30 pack years, quit in Afib s/p PVI, not on AC Significant pulmonary occupational exposures Allergic rhinitis I first saw patient in the office on 06/08/2024. 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 Dyspnea, chest tightness-improved with a sample of Trelegy from his PCP. Baseline breathing has worsened since then. Wheeze at rest, cough with sputum, slowly improving over time. Finds himself more dyspneic than prior on his walks. PFTs that visit showed moderate obstruction with significant improvement post bronchodilator and nitric oxide elevated at 79. Based on features of both COPD (chronically) and asthma (more acutely) I initiated Dulera 200 mcg with spacer. Subsequently, due to cost issues, I changed this to Advair discus 250-50. Today's Visit: Mr Martinez reports improvement in symptoms since the last visit, noting a significant reduction in cough and phlegm production. He attributes a recent onset of different milder phlegm to allergies, accompanied by a runny nose in the morning and postnasal drip at night. He is hesitant to take additional medication for allergies unless symptoms worsen. Previously thick and yellow phlegm has resolved, with only a small amount of white phlegm noted in the past week. He denies oral thrush or irritation, consistently rinsing with Listerine or water after using his Advair. He experiences a raspy voice, which he attributes to his Advair, and mild dyspnea, which he associates with cardiac issues. He continues to walk three times a week, covering a couple of miles each time, and reports improved endurance and reduced fatigue during these walks. His has noted that he speaks in a lower tone after these walks, which he attributes to mild fatigue. He denies sinus congestion. Clinic Questionnaire: COPD Assessment Test Cough 1 Phlegm 1 Chest tightness 1 When walking uphill or flight of steps 2 Activities at home 1 Leaving home despite lung condition 1 Sleeping 1 Energy 2 Total Score 10 PHYSICAL EXAM: BP 123/66 Pulse 67 Ht 5' 9 (1.75m) Wt 196 lb 3.4 oz (89.0kg) SpO2 97[RA]% BMI 28.96 kg/(m2). GEN: Alert, comfortable, sitting up in chair, no distress PULM: clear, no wheeze NEURO: appropriately interactive Objective Allergies: Propafenone and Sotalol Outpatient Medications: See separate documentation Labs / Imaging / Diagnostic Studies: All radiography listed below personally reviewed by me Data Reviewed from [facility] (in addition to that noted in HPI, and Past histories above): CMP: last bicarb 29 CBC: no eos checked PFT: 06/08/2024 Ratio 52% (low) FEV1 67% (low) -> +6% post BD (wnl) FVC 97% -> +10% post BD Moderate obstruction, sig response post BD Oral Exhaled Nitric Oxide measurement (Previous Encounters) Test Date Oral Exhaled Nitric Oxide (ppb) 12/16/2024 24.0 06/08/2024 79.0 (A) CT Chest: 2014 (Cardiac) 1. Normal pulmonary venous anatomy without pulmonary vein stenosis. 2. No left atrial or left atrial appendage thrombus. 3. Mildly ectatic ascending thoracic aorta measuring 3.8 cm ([id number]). 4. Smoking related airways disease and few small indeterminate pulmonary nodules are noted. 12 month follow-up chest CT is suggested to document stability. Echo: none on file Assessment and Plan: Mr. Martinez is a 74 year old male who presents to the [facility] for evaluation of asthma 1. Asthma with chronic obstructive pulmonary disease (COPD) ([facility]) (J44.89) Chronic obstructive pulmonary disease, unspecified COPD type ([facility]) (J44.9) Improvement in cough and phlegm production and dyspnea. Proportional decrease in exhaled nitric oxide levels. Likely due to initiation of Advair diskus 250-50. Advair seems however to be causing dysphonia. We discussed affordable altneratives and spent significant time finding affordable options. HFA inhalers have a lower rate of dysphonia. - Initiate Symbicort 160mcg inhaler, 2 puffs BID, with spacer. I provided a one month prescription to fill via [facility] to see if any additional symptom benefit conferred and improvement in hoarse voice - If helpful, he will let me know and I (more content not included)... Normal [facility] NITRIC OXIDE, EXHALEDon 04- Ileana Jama, ANDREW 12/16/2024 8:29 AM RESPIRATORY THERAPY ORAL EXHALED NITRIC OXIDE SERVICE DATE: 12/16/2024 SERVICE TIME: 8:29 AM Oral Exhaled Nitric Oxide measurement: 24.0 (ppb) Normal: Adult <25 ppb, pediatric (<12 years) <20 ppb High Normal / Increased: Adult 25-50 ppb, pediatric (<12 years) 20-35 ppb Moderately raised exhaled Nitric Oxide may indicate underlying inflammation, but note that: Cold and influenza can raise exhaled Nitric Oxide and some patients have higher baseline exhaled Nitric Oxide levels than others. High: Adult >50 ppb, pediatric (<12 years) >35 ppb Indicative of ongoing eosinophilic inflammation. Symptomatic patient likely to respond to steroids. Possible causes (if already on steroids): Poor compliance, recent allergen exposure, steroid dose inadequate, and steroid resistance. Note that not all patients with high exhaled nitric oxide levels display symptoms. 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 [place] [id number] PATHOLOGIST [employer]EN [employer] BUILDER PARAG ROYAL M.D. Performed By: #### C REAT, CA, URIC, PTH, LYTES, BUN #### [facility] [address] [place] [id number] [facility] Thyrotropin [Units/volume] i n Serum or PlasmaOrdered By: Sole Daley on 09-14-2024 TSH Qn Thyrotropin [Units/v olume] in Serum or Plasma 0.45-5.33 [facility] Thyroxine (T4) free [Mass/vo lume] in Serum or PlasmaOrdered By: Sole Daley on 09-14-2024 Free T4 [Mass/Vol] Thyroxine (T4) free [Mass/volume] in Serum or Plasma 0.61-1.12 [facility] Triiodothyronine (T3) Freeon 09-14-2024 Triiodothyronine (T3) Free 2.72 pg/mL Normal 2.50-3.90 [facility] Comment on above: Result Comment: PERF ORMED BY: [address] [place] [address] PATHOLOGIST [employer] BUILDER PARAG ROYAL M.D. Performed By: #### C REAT, CA, URIC, PTH, LYTES, BUN #### [facility] [address] A1C with Estimated Average G kayn 07-29-2024 Glucose [Mass/Vol] 137 mg/dL Normal [facility] Comment on above: Result Comment: PERF ORMED BY: [place] [address] PATHOLOGIST [employer] LOAD BUILDER PARAG ROYAL M.D. Performed By: #### C REAT, CA, URIC, PTH, LYTES, BUN #### [address] HbA1c (Bld) [Mass fraction] 6.4 % High 4.3-5.6 [facility] Comment on above: Result Comment: Incr eased risk for diabetes: 5.7 - 6.4 diabetes: >6.4 glycemic control for adults with diabetes: <7.0 Performed By: #### C REAT, CA, URIC, PTH, LYTES, BUN #### [address] Blood estimated average gluc ose determination by estimation from glycated hemoglobinOrdered By: Sole Daley on 07-29-2024 Average glucose Estimated from glycated hemoglobin (Bld) [Mass/Vol] Glucose mean value [Mass/volume] in Blood Estimated from glycated hemoglobin [facility] Free T4 (Free Thyroxine)on 09-28-2023 Free T4 [Mass/Vol] 0.73 ng/dL Normal 0.61-1.12 [facility] Comment on above: Performed By: #### C REAT, CA, URIC, PTH, LYTES, BUN #### [address] Hemoglobin A1c/Hemoglobin.to lorin in BloodOrdered By: Sole Daley on 07-29-2024 HbA1c (Bld) [Mass fraction] Hemoglobin A1c percentage High 4.3-5.6 [facility] Comment on above: Increased risk for d iabetes: 5.7 - 6.4diabetes: >6.4glycemic control for adults with diabetes: <7.0 PSA Screen (Yearly Only)on 09-28-2023 PSA Screen (Yearly Only) 3.480 ng/mL Normal 0.000-4.00 0 [facility] Comment on above: Order Comment: Is pa tient <50 yrs? Medicare does not pay <50.: N Is Medicare the insurance?: Y Result Comment: Seri al tumor marker results determined by assays using different manufacturers or methods may not be comparable. [facility] aerodynamics engineer and method: [employer] DXI, CHEMILUMINESCENT IMMUNOASSAY. PERFORMED BY: [place] [address] PATHOLOGIST [employer]EN [employer] LOAD BUILDER PARAG ROYAL M.D. Performed By: #### C REAT, CA, URIC, PTH, LYTES, BUN #### [facility] [address] [place] [address] Prostate specific Ag [Mass/v olume] in Serum or PlasmaOrdered By: Sole Daley on 07-29-2024 Prostate specific Ag [Mass/Vol] Prostate specific Ag [Mass/volume] in Serum or Plasma 0.000-4.00 0 [facility] Comment on above: Serial tumor marker results determined by assays using different manufacturers or methods may not be comparable.[facility] aerodynamics engineer and method:[employer] DXI, CHEMILUMINESCENT IMMUNOASSAY. Thyroid Stimulating Hormoneo n 07-29-2024 TSH Qn 5.54 m[IU]/L High 0.45-5.33 [facility] Comment on above: Result Comment: PERF ORMED BY: [place] [address] PATHOLOGIST [employer] LO[employer] BUILDER PARAG ROYAL M.D. Performed By: #### C REAT, CA, URIC, PTH, LYTES, BUN #### [facility] [address] [place] [address] [place] Thyrotropin [Units/volume] i n Serum or PlasmaOrdered By: Sole Daley on 07-29-2024 TSH Qn Thyrotropin [Units/v olume] in Serum or Plasma High 0.45-5.33 [facility] Thyroxine (T4) free [Mass/vo lume] in Serum or PlasmaOrdered By: Sole Daley on 07-29-2024 Free T4 [Mass/Vol] Thyroxine (T4) free [Mass/volume] in Serum or Plasma 0.61-1.12 [facility] Triiodothyronine (T3) Freeon 07-29-2024 Triiodothyronine (T3) Free 2.81 pg/mL Normal 2.50-3.90 [facility] Comment on above: Result Comment: PERF ORMED BY: [facility] [address] [place] [address] PATHOLOGIST [employer] LO[employer] BUILDER PARAG ROYAL M.D. Performed By: #### C REAT, CA, URIC, PTH, LYTES, BUN #### [address] Triiodothyronine (T3) Free [ Mass/volume] in Serum or PlasmaOrdered By: Sole Daley on 07-29-2024 Free T3 [Mass/Vol] Triiodothyronine (T3 ) Free [Mass/volume] in Serum or Plasma 2.50-3.90 [facility] Ambulatory Visit Summaryon 1 Ambulatory Visit Summary Ambulatory Visit Summary MONTSE MARTINEZ :1950 Visit Date:06/23/2024 Ambulatory Visit Instructions Your Diagnosis Kidney stones Hypocitraturia OAB (overactive bladder) BPH with urinary obstruction Incomplete bladder emptying Your Care Team Attending Physician - Isreal DAHL MD Primary Care Physician - SOLE DALEY DO This Is Your Medications List Contact prescribing physician if questions or concerns ascorbic acid (Vitamin C) aspirin fluticasone-salmeterol (Wixela Inhub) levothyroxine losartan (losartan 25 mg Tab) multivitamin with minerals (Centrum Men's) polycarbophil (Fiber Lax) rosuvastatin (rosuvastatin 20 mg Tab) Procedures Performed Cystourethroscopy with dilation of urethral stricture (09/18/2023), ESWL - Extracorporeal shockwave lithotripsy for renal calculus (08/07/2023), Transurethral insertion of prostatic urethral lift implant (03/24/2023), Cystoscopy (03/04/2023), Colonoscopy, flexible; with removal of tumor(s), polyp(s), or other lesion(s) by snare technique (05/31/2021), Excision of cervical lymph node, left shoulder arthroscopy, Repair of umbilical hernia. Discharge Vitals Heart Rate (Peripheral) 68 Blood Pressure 140/76 Height 69 in Height 175 cm Weight 192.94 lb Weight 87.7 kg BMI 28.64 What to do next Scheduled Follow-Up Appointments Friday 8:45 AM EDT With: Carlos Enrique LEWIS MD Where: [facility] [address] [place] [address]- You Need to Schedule the Following Appointments Follow Up with Carlos Enrique LEWIS MD, URL When: Where: [address] [address]- Medications What How Much When Instructions Unchanged ascorbic acid (Vitamin C) See instructions Contact prescribing physician if questions or concerns Unchanged aspirin 81 Milligram By Mouth Every day Contact prescribing physician if questions or concerns Unchanged fluticasone-salmeterol (Wixela Inhub) Inhalation 2 times a day Contact prescribing physician if questions or [...] Hemorrhoids History of colon polyps Hyperlipidemia Hyperthyroidism Hypocitraturia Incomplete bladder emptying Kidney stones OAB (overactive bladder) Historical - Any problem that you are no longer receiving treatment for. AF - Atrial fibrillation Aspirin prophylaxis H/O: arthritis high cholesterol Hypercholesterolemia Rotator cuff tear shoulder problems Ureteral stone with hydronephrosis Patient Survey You may receive a survey via text or e-mail asking about your office visit. Please share your experience with us by completing your survey. We appreciate your feedback and thank you for choosing us for your care. Education Materials Dietary Guidelines to Help Prevent Kidney Stones Kidney stones are deposits of minerals and salts that form inside your kidneys. Your risk of developing kidney stones may be greater depending on your diet, your lifestyle, the medicines you take, and whether you have certain medical conditions. Most people can lower their risks of developing kidney stones by following these dietary guidelines. Your dietitian may give you more specific instructions depending on your overall health and the type of kidney stones you tend to develop. What are tips for following this plan? Reading food labels ? Choose foods with no salt added or low-salt labels. Limit your salt (sodium) intake to less than 1,500 mg a day. ? Choose foods with calcium for each meal and snack. Try to eat about 300 mg of calcium at each meal. Foods that contain 200?500 mg of calcium a serving include: ? 8 oz (237 mL) of milk, xugrvgu-ytsnnwbdldwz-rmttm milk, and calcium-fortifiedfruit juice. Calcium-fortified means that calcium has been added to these drinks. ? 8 oz (237 mL) of kefir, yogurt, and soy yogurt. ? 4 oz (114 g) of tofu. ? 1 oz (28 g) of cheese. ? 1 cup (150 g) of dried figs. ? 1 cup (91 g) of cooked broccoli. ? One 3 oz (85 g) can of sardines or (more content not included)... Normal [facility] Urology Office/Clinic Noteon 06-23-2024 Urology Office/Clinic Note Urology Office/Clinic Note Chief Complaint 6 month follow up HPI Staff 74 year old male patient presents for a 7 month follow up with a KUB. Previous Dx: kidney stones, gross hematuria, hypocitraturia, OAB, BPH with urinary obstruction, incomplete bladder emptying. * Started Effer-K 25 MEQ bid last OV. Restarted Oxybutynin 5mg qd last OV. S/P Urolift 03/24/23. Cysto 03/04/23. ESWL 08/07/23. Cysto, RAYMOND, R URS, laser of R ureteral stone, basket extraction 09/18/23. Pt was not able to give urine sample. Pt stopped Effer-K due to worsening COPD. Urinary Symptoms Blood in Urine: No Frequency of Urination: No Nocturia: 2x a night Urgency of Urination: Mild Urinary Incontinence: No Weak Urinary Stream: Strong History of Present Illness Tests reviewed: UA, KUB I have reviewed the previous health record information and history for this patient from Dr. Dahl. I have reviewed and verified the staff HPI to be accurate for this encounter. Review of Systems PHQ Score Initial Depression Screen Score: 0 SCORE ROS - Provider Constitutional: denies weight loss, [...] HPI. Physical Exam Vitals & Measurements HR: 68(Peripheral) BP: 140/76 HT: 69 in HT: 175 cm WT: 87.7 kg WT: 192.94 lb BMI: 28.64 General Appearance: alert, no distress, well nourished, well developed male. Assessment/Plan Dr. Lewis pt. 1. Kidney stones (N20.0: Calculus of kidney) [facility] [place] visit 06/14/23 due to RLQ abdominal pain, nausea, and dry heaves. CT AP w con 06/14/23 - Mild [...] however ureteral stones are difficult to exclude. S/p L ESWL 08/07/23. S/p cysto, R UD, R URS, laser of R ureteral stone, basket extraction 09/18/23. Stone analysis 09/18/23 - 70% CaOx di, 30% CaOx mono. KUB 09/24/23 - L renal calculi no longer seen. Punctate R renal calculi present. No ureteral or bladder calculus. KUB 06/19/24 [facility] - Neg. Personal review: no visible calculi. Reviewed imaging with pt, there aren't any stones seen however there could still be punctate stones in the R kidney if he hasn't passed them already. -KUB due in 1 yr (due 06/2025). 2. 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 U24 citric acid 310 L. Serum K 4.8 wnl. Stopped taking Effer-K 25 mEq bid due to it worsening his COPD. Had to be on Trelegy for almost 2 wks, felt better wo Effer-K immediately. Educated pt that Effer-K does not have any direct SEs but there is chance of possible drug interaction and that I have not seen this SE previously. Pt feels the SEs of taking Effer-K outweigh the benefits of stone prevention and wishes to remain off medication. Shares he is not a big water drinking but is trying to drink more water. -Goal 10-12 bottles of water daily. 3. OAB (overactive bladder) (N32.81: Overactive bladder) Pt unable to provide urine sample today. Restarted Oxybutynin 5 mg qd at prior OV but he stopped taking when he was having issues with his stone prevention med and COPD. Did not notice much of a difference w/wo oxybutynin. No difficulty with urination but voids frequently. No UUI episodes. Nocturia 2x/night. Offered for pt to try a different bladder med to help with frequency. Pt wishes to discuss urinary frequency with Dr. Lewis since this is what he was originally seeing him for. Follow up 4-[address] Lewis or sooner if needed. Pt understands and agrees with plan. 4. BPH with urinary obstruction (N40.1: Benign prostatic hyperplasia with lower urinary tract symptoms) PSA: 06/11/18 - 2.09 06/30/20 - 2.02 07/20/22 - 3.47 most recent [place] [facility] [place]/p Urolift [address] Lewis 03/24/23. IPSS not completed (13). Not taking any BPH meds. Taking saw palmetto supplement. Educated pt this will not harm him and may provide him with some benefit. Most recent PSA level in absolute normal range but most recent level higher than I would like. Pt did not tolerate urolift procedure well he shares, thinks he can feel the sutures occasionally. Discussed having PSA be drawn IO today but pt prefers to have his PCP order this and have it be done with his other PCP labs. 5. Incomplete bladder emptying (R (more content not included)... Normal [facility] Comment on above: Result Comment: Elec tronically Signed By: Isreal DAHL MD R\.br\Date and Time Signed: 06/23/24 16:03 EDT\.br\Electronically Co-Signed By: Ibis Puente\.br\Date and Time Co-Signed: 06/23/24 15:59 EDT XR Abdomen 1 Viewon 06-22-20 XR Abdomen 1 View Exam Date/Time: 06/19/2024 06:45 EDT Reason for Exam: kidney stone;Kidney stone Report IMPRESSION: NONSPECIFIC ABDOMEN. CLINICAL HISTORY: Kidney stone, kidney stone COMPARISON: CT abdomen and pelvis September 16, 2023. FINDINGS: Multiple surgical clips cephalad to the symphysis pubis. Gas and stool in colon. Gas in small bowel. No focal or diffuse small bowel dilatation, mass effect, abnormal calcification. Osseous structures intact. Ordering Provider: Isreal DAHL FINAL REPORT Dictated: 06/22/2024 6:02 pm Nolberto Martines MD Signed (Electronic Signature): 06/22/2024 6:02 pm Signed by: Nolberto Martines MD Transcribed by: LUIS Technologist: REBECCA Technical Comments Radiation Dose: Ka,r in mGy = 0 DAP = 0 Normal [facility] CNOVon 06-17-2024 CNOV Office Visit (JENNIFER ) -- MONTSE MARTINEZ ([id number]) 1950 M Date Time Provider Department 06/17/24 9:30 AM LEV PRICE During your visit today, we recorded the following information about you: Pulse Blood pressure Weight 55/minute 150/86 88 kg John Lev, DO 06/17/2024 9:57 AM Signed [facility]Y OUTPATIENT VISIT DATE June 17, 2024 OUTPATIENT VISIT TYPE ESTABLISHED PRIMARY CARE PHYSICIAN: Sole Daley [address] [place] [address] [address] [place] [address] CHIEF COMPLAINT: Arrhythmia HISTORY OF PRESENT ILLNESS: Mr. Martinez is a 74 year old male with a past medical history of atrial fibrillation status post PVI, HLD, hypothyroid. I saw him previously on 08/14/2023, per that note: ...he states that he is feeling well. He denies having any: chest pain, palpitations, shortness of breath, orthopnea, LE edema, presyncope/syncope, N/V, bleeding, or other significant symptoms. Today, he had some shortness of breath which he attributes to asthma/COPD. He is supposed to obtain an inhaler yet, the mendiola was expensive. He denies having any: chest pain, palpitations, orthopnea, LE edema, presyncope/syncope, N/V, bleeding, or other significant symptoms. He is eating vegetables daily. He drinks 1/2 caf about 4 cups a day. He doesn't drink any alcohol. He quit smoking 30 years ago. No drugs. He attempts to walk 2-3 miles 3x a week. Family, Mother had an enlarged heart. Brother had an MO when he was 72 years of age. 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 IMPRESSION: Encounter Diagnosis ICD-10-CM 1. Paroxysmal atrial fibrillation (HCC) I48.0 ECG COMPLETE 2. Primary hypertension I10 ECG COMPLETE BASIC METABOLIC PANEL COMPLETE BLOOD COUNT 3. Mixed hyperlipidemia E78.2 LIPID PANEL BASIC rosuvastatin (CRESTOR) 40 mg tablet 4. Overweight (BMI 25.0-29.9) E66.3 PLAN AND [...] than 130/80 mmHg. Today BP is above goal yet he did not take his medication prior to this appointment. He believes it is controlled at home. Continue: losartan 50mg daily. He should monitor his BP and bring BP log to next visit. I recommend checking BMP prior to next visit. Goal LDL is less than 70 mg/dL. Increase rosuvastatin to 40 mg nightly. Monitor for myalgias. Check Lipid panel prior to next visit. Goal A1c is less than 7.0%. Currently overweight, recommend continuing heart healthy diet and exercising regularly. PHYSICAL EXAMINATION: BP 150/86 Pulse (!) 55 Wt 88 kg (194 lb 0.1 oz) SpO2 99% BMI 28.65 kg/m? General: No apparent distress [...] reviewed ECG and outside facility laboratory results ECG-06/17/2024 Sinus bradycardia 54 bpm, otherwise normal ECG Latest Reference Range AND Units 02/04/24 08:14 Cholesterol, Total <200 mg/dL 170 Triglyceride <150 mg/dL 97 Fasting Time hrs 12 HDL Cholesterol >39 mg/dL 57 LDL Cholesterol <100 mg/dL 94 VLDL Cholesterol <30 mg/dL 19 TC:HDL Ratio <5.10 2.98 LDL:HDL Ratio <2.54 1.65 Last EKG Result Conclusion ECG COMPLETE Collected: 06/17/2024 9:32 AM (Preliminary result) Impression: SINUS BRADYCARDIA OTHERWISE NORMAL ECG PAST MEDICAL HISTORY Diagnosis Date Atrial fibrillation (HCC) 2008 Hypercholesterolaemia Hypothyroidism Osteoarthritis Other disorders of ear(388.8) bilat hearing aids PAST SURGICAL HISTORY Procedure Laterality Date PAST SURGICAL HISTORY OF Bilateral 2009 shoulders PAST SURGICAL HISTORY OF facial reconstruction REPAIR UMBILICAL HERNIA Social History Tobacco Use Smoking status: Former Current packs/day: 0.00 Average packs/day: 1 pack/day for 25.0 years (25.0 ttl pk-yrs) Types: Cigarettes Start date: 09/08/1964 Quit date: 09/08/1989 Years since quittin.7 Smokeless tobacco: Never Substance Use Topics Alcohol use: No Drug use: No FAMILY HISTORY Problem Relation Age of Onset Heart Mother CAD/pacemaker Cancer Father pancreatic other (a fib [Other]) Brother ALLERGIES Allergen Reactions Propafenone Other: See (more content not included)... Normal [facility] ECG COMPLETEon 06-17-2024 ECG COMPLETE Ventricular Rate : 5 4 BPM Atrial Rate : 54 BPM P-R Interval : 178 ms QRS Duration : 108 ms Q-T Interval : 444 ms QTC Calculation(Bazett) : 421 ms Calculated P Belle : 66 degrees Calculated R Belle : 67 degrees Calculated T Belle : 73 degrees SINUS BRADYCARDIA OTHERWISE NORMAL ECG Confirmed by NICOLE SAMSON MD ([id number]) on 07/07/2024 11:42:01 PM NAME : MONTSE MARTINEZ PID : [id number] : 1950 Gender : Male Race : ORD : [id number] Procedure Date : Jun 17 2024 09:32:49 Edit Date : Jul 07 2024 23:42:07 Diagnosis: SINUS BRADYCARDIA OTHERWISE NORMAL ECG Confirmed by NICOLE SAMSON MD ([id number]) on 07/07/2024 11:42:01 PM Test Reason : I10 Primary hypertension Location : 145 : [place]ARD Overread By : NICOLE SAMSON MD Edited By : NICOLE SAMSON MD Referred By : , Acquired by : , Normal [facility] A1AT SerPl-mCncon 06-08-2024 Alpha 1 antitrypsin [Mass/Vol] 137 mg/dL Normal 90-200 [facility] Comment on above: Order Comment: Speci men Type: BLOOD SPECIMENOrdering Facility: [facility] Address: [address] [place] [address] Performed By: #### 1 825-9 ####[facility] [id number] [facility] [id number] [place] [address] [place] ALPHA 1 ANTITRYP PHEN/GENOTY PEon 06-08-2024 HA1IN Normal [facility] Comment on above: Order Comment: Speci men Type: BLOOD SPECIMENOrdering Facility: [facility] Address: [address], [place] [address] Result Comment: Alph a 1 Antitrypsin Phenotype and Genotype Laboratory Accession Number: [id number] Result: No Variant Detected in SERPINA1 (PI*MM) Interpretation: DNA testing indicates that this patient does not have the S, Z, F, or I alleles of SERPINA1, the alpha-1 antitrypsin gene. Guidance: Genetic consultation and counseling of at risk family members regarding this laboratory testing may be considered as clinically appropriate. Patients with no variants of SERPINA1 typically have serum alpha-1 antitrypsin levels between 102-254 mg/dL. If this patient has a serum alpha-1 antitrypsin level that is not consistent with this genotype and alpha-1 antitrypsin deficiency caused by a rare variant is clinically suspected, consider performing SERPINA1 gene sequencing. Methodology: Isolated genomic DNA from the patient's blood specimen is evaluated for four variants in the alpha-1 antitrypsin gene SERPINA1 (RefSeq [id number]; GRCh38/hg38) by multiplex polymerase chain reaction (PCR) followed by melting curve analysis. These included the two most common pathogenic variants: S (c.863A>T, p.Epq929Lpo, g.61886746), Z (c.1096G>A, p.Knl565Bdr, g.26511344), and the rarer variants: F (c.739C>T, p.Woq447Zsc, g.00259745), I (c.187C>T, p.Sie38Tzg, g.13408565). Limitations: This Laboratory Developed Test (LDT) is designed to detect the S, Z, F and I alleles. The S and Z alleles comprise 95% of non-wild type genotypes. Uncommon variants or Single Nucleotide Polymorphisms may affect binding of LightMix or LightSNiP probes and may result in a false negative, false positive, or indeterminate result. Absence of the S, Z, F, and I alleles is interpreted as PI*MM genotype. However, there are over 100 known rare variants of SERPINA1 that are not detected by this LDT. Therefore, correlation of the genotype with the patient's serum alpha-1 antitrypsin level and clinical manifestations is strongly recommended. Frequency of S, Z, F and I Alleles in the general population: S: Heterozygous 2%; Homozygous 0.04% Z: Heterozygous 1%; Homozygous 0.01% F: Heterozygous 0.3%; Homozygous 0.001% I: Heterozygous 0.1%; Homozygous unknown Allele frequency information was gathered from the [employer] ([employer]) and includes data from , , , and populations (supporting data in references). Disclaimer: This test was developed and its performance characteristics determined by [facility]'s Pathology and Laboratory Medicine Department. It has not been cleared or approved by the FDA. [facility]'s Pathology and Laboratory Medicine Department is regulated under CLIA as certified to perform high-complexity testing. This test is used for clinical purposes. It should not be regarded as investigational or for research. Testing and interpretation performed at [facility], [address] [place] [address]. CLIA Number: [id number] References: 1) Maxim DURAND, Nayla G, Cyrus ML, Avni M, Tomi CE, K, Mega DK, Irineo SL, Jairon JM, Mauro BrandtK, Mis C, Juanita J. The Diagnosis and Management of Alpha-1 Antritrypsin Deficiency in the Adult. Chronic Obstr Pulm Dis. 2016 Feb 11;3:668-682. 2) Curtis JA, Keyur ON, Jairo ER, Imelda DG. a1-Antitrypsin phenotypes and associated serum protein concentrations in a large clinical population. Chest.2013 Dec;143(4):1000-8. 3) Ramiro A, Tyson NA, Davy CR, Ada FJ, Yony SJ, Laura AF. Molecular characterisation of three srpfq-9-nkxkiybxwiw deficiency variants: proteinase inhibitor (Pi) nullcardiff (Scu971----Eis); PiMmalton (Pup63----lcladeln) and PiI (Tty68----Nka). Hum Shayna. 1989 Aug;84(1):55-8. 4) Megan CUELLAR and Maxim DURAND. Clinical practice. Alpha1-antitrypsin deficiency. N Engl J Med. 2008Mar 02;704(51)3702-61. 5) Earnestine NJ, Adilene F, Landry RA. The significance of the F variant of lrnkh-8-nsvqgooyabm and unique case report of a PiFF homozygote. BMC Pulm Med. 2013Apr 14;14:132. 6) Mauro BrandtK, Andre FL, and Arminda Pelaez. Alpha-1 Antitrypsin Deficiency. 2005Jul 04 [Updated 2016September 26]. In: Randi RA, Lon MP, Maco TO, et al., editors. GeneRevIntematixws [Internet]. [place] ([place]): [facility], [place]; 6513-5648. Available from: http://www.ncbi.nlm.nih.gov/books/LKR6782/ As reviewed by Julian Johnson, PhD, FACMG Performed By: #### A 1ATPG ####[facility] [id number] [place] [address] [place] Basophils Auto (Bld) [#/Vol] on 06-08-2024 Basophils (Bld) [#/Vol] Automated basophil count <0.11 [facility] Basophils/100 WBC Auto (Bld) on 06-08-2024 Basophils/100 WBC (Bld) Automated basophil % [facility] Blood manual differential co mment interpretation narrativeon 06-08-2024 Manual differential comment Riley (Bld) [Interp] Blood manual differential comment interpretation narrative [facility] CBC W Auto Differential pane l (Bld)on 06-08-2024 Basophils (Bld) [#/Vol] 0.07 10*3/uL [facility] Basophils/100 WBC (Bld) 0.8 % [facility] Differential cell count method Nom (Bld) Auto [facility] Eosinophils (Bld) [#/Vol] 0.26 10*3/uL [facility] Eosinophils/100 WBC (Bld) 3.1 % [facility] Erythrocyte distribution width (RBC) [Ratio] 13.1 % 11.5 - 15.0 % [facility] Hematocrit (Bld) [Volume fraction] 47.0 % 39.0 - 51.0 % [facility] Hemoglobin (Bld) [Mass/Vol] 15.0 g/dL 13.0 - 17.0 g/dL [facility] Immature granulocytes (Bld) [#/Vol] NINF [facility] Immature granulocytes/100 WBC (Bld) 0.2 % [facility] Interpretation and review of laboratory results Abnormal [facility] Lymphocytes (Bld) [#/Vol] 2.19 10*3/uL [facility] Lymphocytes/100 WBC (Bld) 25.7 % [facility] MCH (RBC) [Entitic mass] 29.2 pg 26.0 - 34.0 pg [facility] MCHC (RBC) [Mass/Vol] 31.9 g/dL 30.5 - 36.0 g/dL [facility] MCV (RBC) [Entitic vol] 91.6 fL 80.0 - 100.0 fL [facility] Monocytes (Bld) [#/Vol] 1.04 10*3/uL High [facility] Monocytes/100 WBC (Bld) 12.2 % [facility] Neutrophils (Bld) [#/Vol] 4.93 10*3/uL [facility] Neutrophils/100 WBC (Bld) 58.0 % [facility] Nucleated RBC (Bld) [#/Vol] [facility] Nucleated RBC/100 WBC (Bld) [Ratio] 0.0 % /100 WBC [facility] Platelet mean volume (Bld) [Entitic vol] 11.3 fL 9.0 - 12.7 fL [facility] Platelets (Bld) [#/Vol] 234 10*3/uL [facility] RBC (Bld) [#/Vol] 5.13 10*6/uL 4.20 - 6.00 m/uL [facility] WBC (Bld) [#/Vol] 8.51 10*3/uL [facility] Basophils (Bld) [#/Vol] 0.07 10*3/uL Normal <0.11 [facility] Comment on above: Order Comment: Speci men Type: BLOOD SPECIMENOrdering Facility: [facility] Address: [address] [place] [address] Performed By: #### 5 7021-8 ####[facility] [id number] [address] [place], [place] [address] [place] Basophils/100 WBC (Bld) 0.8 % Normal [facility] Comment on above: Order Comment: Speci men Type: BLOOD SPECIMENOrdering Facility: [facility] Address: [address] [place] [address] Performed By: #### 5 7021-8 ####[facility] [id number] [place] [address] [place] Differential cell count method Nom (Bld) Auto Normal [facility] Comment on above: Order Comment: Speci men Type: BLOOD SPECIMENOrdering Facility: [facility] Address: [address] [place] [address] Performed By: #### 5 7021-8 ####[facility] [id number] [place] [address] [place] Eosinophils (Bld) [#/Vol] 0.26 10*3/uL Normal <0.46 [facility] Comment on above: Order Comment: Speci men Type: BLOOD SPECIMENOrdering Facility: [facility] Address: [address] [place] [address] Performed By: #### 5 7021-8 ####[facility] [id number] [place] [address] [place] Eosinophils/100 WBC (Bld) 3.1 % Normal [facility] Comment on above: Order Comment: Speci men Type: BLOOD SPECIMENOrdering Facility: [facility] Address: [address] [place] [address] Performed By: #### 5 7021-8 ####[facility] [id number] [place] [address] [place] Erythrocyte distribution width (RBC) [Ratio] 13.1 % Normal 11.5-15.0 [facility] Comment on above: Order Comment: Speci men Type: BLOOD SPECIMENOrdering Facility: [facility] Address: [address] [place] [address] Performed By: #### 5 7021-8 ####[facility] [id number] [place] [address] [place] Hematocrit (Bld) [Volume fraction] 47.0 % Normal 39.0-51.0 [facility] Comment on above: Order Comment: Speci men Type: BLOOD SPECIMENOrdering Facility: [facility] Address: [address] [place] [address] Performed By: #### 5 7021-8 ####[facility] [id number] [place] [address] [place] Hemoglobin (Bld) [Mass/Vol] 15.0 g/dL Normal 13.0-17.0 [facility] Comment on above: Order Comment: Speci men Type: BLOOD SPECIMENOrdering Facility: [facility] Address: [address] [place] [address] Performed By: #### 5 7021-8 ####[facility] [id number] [place] [address] [place] Immature granulocytes (Bld) [#/Vol] 10*3/uL Normal <0.10 [facility] Comment on above: Order Comment: Speci men Type: BLOOD SPECIMENOrdering Facility: [facility] Address: [address] [place] [address] Performed By: #### 5 7021-8 ####[facility] [id number] [place] [address] [place] Immature granulocytes/100 WBC (Bld) 0.2 % Normal [facility] Comment on above: Order Comment: Speci men Type: BLOOD SPECIMENOrdering Facility: [facility] Address: [address] [place] [address] Performed By: #### 5 7021-8 ####[facility] [id number] [place] [address] [place] Lymphocytes (Bld) [#/Vol] 2.19 10*3/uL Normal 1.00-4.00 [facility] Comment on above: Order Comment: Speci men Type: BLOOD SPECIMENOrdering Facility: [facility] Address: [address] [place] [address] Performed By: #### 5 7021-8 ####[facility] [id number] [place] [address] [place] Lymphocytes/100 WBC (Bld) 25.7 % Normal [facility] Comment on above: Order Comment: Speci men Type: BLOOD SPECIMENOrdering Facility: [facility] Address: [address] [place] [address] Performed By: #### 5 7021-8 ####[facility] [id number] [place] [address] [place] MCH (RBC) [Entitic mass] 29.2 pg Normal 26.0-34.0 [facility] Comment on above: Order Comment: Speci men Type: BLOOD SPECIMENOrdering Facility: [facility] Address: [address] [place] [address] Performed By: #### 5 7021-8 ####[facility] [id number] [place] [place] [address] [place] MCHC (RBC) [Mass/Vol] 31.9 g/dL Normal 30.5-36.[address] [facility] Comment on above: Order Comment: Speci men Type: BLOOD SPECIMENOrdering Facility: [facility] Address: [address] [place] [address] Performed By: #### 5 7021-8 ####[facility] [id number] [place] [address] [place] MCV (RBC) [Entitic vol] 91.6 fL Normal 80.0-100.0 [facility] Comment on above: Order Comment: Speci men Type: BLOOD SPECIMENOrdering Facility: [facility] Address: [address] [place] [address] Performed By: #### 5 7021-8 ####[facility] [id number] [place] [address] [place] Monocytes (Bld) [#/Vol] 1.04 10*3/uL High <0.87 [facility] Comment on above: Order Comment: Speci men Type: BLOOD SPECIMENOrdering Facility: [facility] Address: [address] [place] [address] Performed By: #### 5 7021-8 ####[facility] [id number] [place] [address] [place] Monocytes/100 WBC (Bld) 12.2 % Normal [facility] Comment on above: Order Comment: Speci men Type: BLOOD SPECIMENOrdering Facility: [facility] Address: [address] [place] [address] Performed By: #### 5 7021-8 ####[facility] [id number] [place] [address] [place] Neutrophils (Bld) [#/Vol] 4.93 10*3/uL Normal 1.45-7.50 [facility] Comment on above: Order Comment: Speci men Type: BLOOD SPECIMENOrdering Facility: [facility] Address: [address] [place] [address] Performed By: #### 5 7021-8 ####[facility] [id number] [place] [address] [place] Neutrophils/100 WBC (Bld) 58.0 % Normal [facility] Comment on above: Order Comment: Speci men Type: BLOOD SPECIMENOrdering Facility: [facility] Address: [address] [place] [address] Performed By: #### 5 7021-8 ####[facility] [id number] [address] [id number] [address] [place] Nucleated RBC (Bld) [#/Vol] 10*3/uL Normal <0.01 [facility] Comment on above: Order Comment: Speci men Type: BLOOD SPECIMENOrdering Facility: [facility] Address: [address] [place] [address] Performed By: #### 5 7021-8 ####[facility] [id number] [place] [address] [place] Nucleated RBC/100 WBC (Bld) [Ratio] 0.0 /100 WBC Normal [facility] Comment on above: Order Comment: Speci men Type: BLOOD SPECIMENOrdering Facility: [facility] Address: [address] [place] [address] Performed By: #### 5 7021-8 ####[facility] [id number] [place] [address] [place] Platelet mean volume (Bld) [Entitic vol] 11.3 fL Normal 9.0-12.7 [facility] Comment on above: Order Comment: Speci men Type: BLOOD SPECIMENOrdering Facility: [facility] Address: [address] [place] [address] Performed By: #### 5 7021-8 ####[facility] [id number] [place] [address] [place] Platelets (Bld) [#/Vol] 234 10*3/uL Normal 150-400 [facility] Comment on above: Order Comment: Speci men Type: BLOOD SPECIMENOrdering Facility: [facility] Address: [address] [place] [address] Performed By: #### 5 7021-8 ####[facility] [id number] [place] [address] [place] RBC (Bld) [#/Vol] 5.13 10*6/uL Normal 4.20-6.00 [facility] Comment on above: Order Comment: Speci men Type: BLOOD SPECIMENOrdering Facility: [facility] Address: [address] [place] [address] Performed By: #### 5 7021-8 ####[facility] [id number] [place] [address] [place] WBC (Bld) [#/Vol] 8.51 10*3/uL Normal 3.70-11.00 [facility] Comment on above: Order Comment: Speci men Type: BLOOD SPECIMENOrdering Facility: [facility] Address: [address] [place] [address] Performed By: #### 5 7021-8 ####[facility] [id number] [place] [address] [place] CNOVon 06-08-2024 CNOV Office Visit (PULMLO ) -- MICHELLEMONTSE Malhotra ([id number]) 1950 M Date Time Provider Department 06/08/24 10:15 AM PATRICK HINSON PULCRISTY During your visit today, we recorded the following information about you: Pulse Blood pressure Weight 64/minute 133/86 86.2 kg Patrick Hinson MD 06/08/2024 12:57 PM Signed . [facility] Initial Visit Note Mr. Martinez is a 74 year old male who presents to the [facility]. Consultation requested by Uzair Pak MD for an opinion regarding cough. My final recommendations/evaluation will be communicated back to the requesting physician by way of shared medical record or letter via US mail. HPI: 74 year old male with a history relevant for: Former smoker, 30 pack years, quit in 1980s Afib s/p PVI, not on AC Accompanied today by his . Retied for a few years. 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 Did not wear a mask. Worsening shortness of breath, chest tightness. Similar to exposure to fiberglass insulation in attic sometimes. Per - he was struggling to breath. Saw PCP who prescribed 14 day sample of Trelegy. Helped a lot - felt significantly better after 14 days. Then stopped and has remained off. Seems to have had worsening of his baseline symptoms since that time. hears a wheeze even at rest - audible across the room. Produces signifcant sputum a/w cough. Can have prolonged paroxysms. Sputum is yellowish or clear and thick. Seems to be improving over time. Lots of occupational exposures. 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 PCP is through [facility]. Followed lung nodules from 2016 to 2018, noted to be completely stable, after which surveillance was discontinued. Seasonal allergies - usually watery eyes, rhinorrhea, cough, wheeze. Spring worse than fall typically. Takes [employer]. Walks three times per week, a few miles at a time. Includes inclines. Will get mildly dyspneic toward the end of these walks. Is overall exhausted at the end of the walks. Symptomatic with digging in the garden - takes more breaks than before. No leg swelling. No GERD routinely. No breathing issues with sleep. Does not awaken from sleep coughing. Past Medical History: PAST MEDICAL HISTORY Diagnosis Date Atrial fibrillation (HCC) 2008 Hypercholesterolaemia Hypothyroidism Osteoarthritis Other disorders of ear(388.8) bilat hearing aids Past Surgical History: PAST SURGICAL HISTORY Procedure Laterality Date PAST SURGICAL HISTORY OF Bilateral 2009 shoulders PAST SURGICAL HISTORY OF facial reconstruction REPAIR UMBILICAL HERNIA Work and Social Histories: Social History Tobacco Use Smoking status: Former Current packs/day: 0.00 Average packs/day: 1 pack/day for 25.0 years (25.0 ttl pk-yrs) Types: Cigarettes Start date: 09/08/1964 Quit date: 09/08/1989 Years since quittin.7 Smokeless tobacco: Never Substance Use Topics Alcohol use: No Drug use: No Occ history as above. Family History: FAMILY HISTORY Problem Relation Age of Onset Heart Mother CAD/pacemaker Cancer Father pancreatic other (a fib [Other]) Brother PHYSICAL EXAM: BP 133/86 Pulse 64 Wt 190 lb (86.2kg) SpO2 99% GEN: Alert, comfortable, sitting up in chair, no distress EYES: Anicteric sclera, no conjunctival injection HENT: Pharynx clear, tongue normal CV: RRR, no peripheral edema PULM: clear, no wheeze NEURO: appropriately interactive, No asterixis SKIN: Normal turgor, No palmar plethora EXT: No cyanosis or clubbing Objective Allergies: Propafenone and Sotalol Outpatient Medications: See separate documentation Labs / Imaging / Diagnostic Studies: All radiography listed below personally reviewed by me Data Reviewed from [facility] (in addition to that noted in HPI, and Past histories above): CMP: last bicarb 29 CBC: no eos checked PFT: 06/08/2024 Ratio 52% (low) FEV1 67% (low) -> +6% post BD (wnl) FVC 97% -> +10% post BD Moderate obstruction, normalizes post BD FENO 79ppb CT Chest: 2014 (Cardiac) 1. Normal pulmonary venous anatomy without pulmonary vein stenosis. 2. No left atrial or left atrial appendage thrombus. 3. Mildly ectatic ascending thoracic aorta measuring 3.8 cm (rucxi-ed-xdwwa). 4. Smoking related airways disease and few small indeterminate pulmonary nodules are noted. 12 month follow-up chest CT is suggested to document stability. Echo: none on file Assessment and Plan: Mr. Martinez is a 74 year (more content not included)... Normal [facility] Eosinophils/100 WBC Auto (Bl d)on 06-08-2024 Eosinophils/100 WBC (Bld) Automated eosinophil % [facility] Erythrocyte distribution wid th Auto (RBC) [Ratio]on 06-08-2024 Erythrocyte distribution width (RBC) [Ratio] Erythrocyte distribution width [Ratio] by Automated count 11.5-15.0 [facility] HISTORY PHYSICALon HISTORY PHYSICAL HNO ID: [id number] Author: PATRICK HINSON MD Service: ? Author Type: Physician Type: H&P Filed: 06/08/2024 12:57 Note Text: . [facility] Initial Visit Note Mr. Martinez is a 74 year old male who presents to the [facility]. Consultation requested by Uzair Pak MD for an opinion regarding cough. My final recommendations/evaluation will be communicated back to the requesting physician by way of shared medical record or letter via US mail. HPI: 74 year old male with a history relevant for: Former smoker, 30 pack years, quit in 1980s Afib s/p PVI, not on AC Accompanied today by his . Retied for a few years. 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 Did not wear a mask. Worsening shortness of breath, chest tightness. Similar to exposure to fiberglass insulation in attic sometimes. Per - he was struggling to breath. Saw PCP who prescribed 14 day sample of Trelegy. Helped a lot - felt significantly better after 14 days. Then stopped and has remained off. Seems to have had worsening of his baseline symptoms since that time. hears a wheeze even at rest - audible across the room. Produces signifcant sputum a/w cough. Can have prolonged paroxysms. Sputum is yellowish or clear and thick. Seems to be improving over time. Lots of occupational exposures. 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 PCP is through [facility]. Followed lung nodules from 2016 to 2018, noted to be completely stable, after which surveillance was discontinued. Seasonal allergies - usually watery eyes, rhinorrhea, cough, wheeze. Spring worse than fall typically. Takes [employer]. Walks three times per week, a few miles at a time. Includes inclines. Will get mildly dyspneic toward the end of these walks. Is overall exhausted at the end of the walks. Symptomatic with digging in the garden - takes more breaks than before. No leg swelling. No GERD routinely. No breathing issues with sleep. Does not awaken from sleep coughing. Past Medical History: PAST MEDICAL HISTORY Diagnosis Date Atrial fibrillation (HCC) 2009 Hypercholesterolaemia Hypothyroidism Osteoarthritis Other disorders of ear(388.8) bilat hearing aids Past Surgical History: PAST SURGICAL HISTORY Procedure Laterality Date PAST SURGICAL HISTORY OF Bilateral 2009 shoulders PAST SURGICAL HISTORY OF facial reconstruction REPAIR UMBILICAL HERNIA Work and Social Histories: Social History Tobacco Use Smoking status: Former Current packs/day: 0.00 Average packs/day: 1 pack/day for 25.0 years (25.0 ttl pk-yrs) Types: Cigarettes Start date: 09/08/1964 Quit date: 09/08/1989 Years since quittin.7 Smokeless tobacco: Never Substance Use Topics Alcohol use: No Drug use: No Occ history as above. Family History: FAMILY HISTORY Problem Relation Age of Onset Heart Mother CAD/pacemaker Cancer Father pancreatic other (a fib [Other]) Brother PHYSICAL EXAM: BP 133/86 Pulse 64 Wt 190 lb (86.2kg) SpO2 99% GEN: Alert, comfortable, sitting up in chair, no distress EYES: Anicteric sclera, no conjunctival injection HENT: Pharynx clear, tongue normal CV: RRR, no peripheral edema PULM: clear, no wheeze NEURO: appropriately interactive, No asterixis SKIN: Normal turgor, No palmar plethora EXT: No cyanosis or clubbing Objective Allergies: Propafenone and Sotalol Outpatient Medications: See separate documentation Labs / Imaging / Diagnostic Studies: All radiography listed below personally reviewed by me Data Reviewed from [facility] (in addition to that noted in HPI, and Past histories above): CMP: last bicarb 29 CBC: no eos checked PFT: 06/08/2024 Ratio 52% (low) FEV1 67% (low) -> +6% post BD (wnl) FVC 97% -> +10% post BD Moderate obstruction, normalizes post BD FENO 79ppb CT Chest: 2014 (Cardiac) 1. Normal pulmonary venous anatomy without pulmonary vein stenosis. 2. No left atrial or left atrial appendage thrombus. 3. Mildly ectatic ascending thoracic aorta measuring 3.8 cm (tczfo-he-kvgqi). 4. Smoking related airways disease and few small indeterminate pulmonary nodules are noted. 12 month follow-up chest CT is suggested to document stability. Echo: none on file Assessment and Plan: Mr. Martinez is a 74 year old male who presents to the [facility] for evaluation of dyspnea. #Asthma #COPD #Dyspnea History and testing are suggestive of both asthma (characteristic irritant triggers, associated seasonal allergies, elevated FENO, borde (more content not included)... Normal [facility] Hematocrit Auto (Bld) [Volum e fraction]on 06-08-2024 Hematocrit (Bld) [Volume fraction] Hematocrit [Volume Fraction] of Blood by Automated count 39.0-51.0 [facility] Hemoglobin [Mass/volume] in Bloodon 06-08-2024 Hemoglobin (Bld) [Mass/Vol] Hemoglobin [Mass/volume] in Blood 13.0-17.0 [facility] Laboratory - Hematology and Cell countson 06-08-2024 Eosinophils (Bld) [#/Vol] 0.26 10*3/uL <0.46 [facility] Immature granulocytes/100 WBC (Bld) 0.2 % [facility] Leukocytes [#/volume] correc harpreet for nucleated erythrocytes in Blood by Automated counon 06-08-2024 WBC corrected for nucl RBC Auto (Bld) [#/Vol] Leukocytes [#/volume] corrected for nucleated erythrocytes in Blood by Automated coun 3.70-11.00 [facility] Lymphocytes Auto (Bld) [#/Vo l]on 06-08-2024 Lymphocytes (Bld) [#/Vol] Lymphocytes [#/volume] in Blood by Automated count 1.00-4.00 [facility] Lymphocytes/100 WBC Auto (Bl d)on 06-08-2024 Lymphocytes/100 WBC (Bld) Lymphocytes/100 leukocytes in Blood by Automated count [facility] MCH Auto (RBC) [Entitic mass ]on 06-08-2024 MCH (RBC) [Entitic mass] MCH [Entitic mass] by Automated count 26.0-34.0 [facility] MCHC Auto (RBC) [Mass/Vol]on 06-08-2024 MCHC (RBC) [Mass/Vol] MCHC [Mass/volume] by Automated count 30.5-36.0 [facility] MCV Auto (RBC) [Entitic vol] on 06-08-2024 MCV (RBC) [Entitic vol] MCV [Entitic volume] by Automated count 80.0-100.0 [facility] Monocytes Auto (Bld) [#/Vol] on 06-08-2024 Monocytes (Bld) [#/Vol] Automated blood monocyte count High <0.87 [facility] Monocytes/100 WBC Auto (Bld) on 06-08-2024 Monocytes/100 WBC (Bld) Automated monocyte % [facility] NITRIC OXIDE, EXHALEDon 10-0 Radha Ramirez RRT 06/08 10:05 AM ALLERGY AND IMMUNOLOGY ORAL EXHALED NITRIC OXIDE SERVICE DATE: 06/08/2024 SERVICE TIME: 9:54 AM Oral Exhaled Nitric Oxide measurement: 79.0 (ppb) (A) Normal: Adult <25 ppb, pediatric (<12 years) <20 ppb High Normal / Increased: Adult 25-50 ppb, pediatric (<12 years) 20-35 ppb Moderately raised exhaled Nitric Oxide may indicate underlying inflammation, but note that: Cold and influenza can raise exhaled Nitric Oxide and some patients have higher baseline exhaled Nitric Oxide levels than others. High: Adult >50 ppb, pediatric (<12 years) >35 ppb Indicative of ongoing eosinophilic inflammation. Symptomatic patient likely to respond to steroids. Possible causes (if already on steroids): Poor compliance, recent allergen exposure, steroid dose inadequate, and steroid resistance. Note that not all patients with high exhaled nitric oxide levels display symptoms. Oral Exhaled Nitric Oxide measurement (Previous Encounters) Test Date Oral Exhaled Nitric Oxide (ppb) 06/08/2024 79.0 (A) NAME: Radha Ramirez RRT PATIENT NAME: Montse Martinez DATE: June 08, 2024 TIME: 9:54 AM [facility] Neutrophils Auto (Bld) [#/Vo l]on 06-08-2024 Neutrophils (Bld) [#/Vol] Neutrophils [#/volume] in Blood by Automated count 1.45-7.50 [facility] Neutrophils/100 WBC Auto (Bl d)on 06-08-2024 Neutrophils/100 WBC (Bld) Automated neutrophil % [facility] No Panel Informationon 06-08 Immature Granulocyte # (Auto) <0.03 k/uL <0.10 [facility] Nucleated RBC Auto (Bld) [#/ Vol]on 06-08-2024 Nucleated RBC (Bld) [#/Vol] Nucleated erythrocytes [#/volume] in Blood by Automated count <0.01 [facility] Nucleated erythrocytes [Pres ence] in Blood by Automated counton 06-08-2024 Nucleated RBC Auto Ql (Bld) Nucleated erythrocytes [Presence] in Blood by Automated count [facility] Platelet mean volume Auto (B ld) [Entitic vol]on 06-08-2024 Platelet mean volume (Bld) [Entitic vol] Platelet mean volume [Entitic volume] in Blood by Automated count 9.0-12.7 [facility] Platelets Auto (Bld) [#/Vol] on 06-08-2024 Platelets (Bld) [#/Vol] Platelets [#/volume] in Blood by Automated count 150-400 [facility] RBC Auto (Bld) [#/Vol]on RBC (Bld) [#/Vol] Erythrocytes [#/volu me] in Blood by Automated count 4.20-6.00 [facility] SPIROMETRY - BASELINE AND PO ST DILATORon 06-08-2024 FEF25% POST (L/S) 2.39 L/S [facility] FEF25% PRE (L/S) 2.30 L/S [facility] XWP86-79% LLN (L/S) 0.97 L/S [facility] OKA97-89% POST (L/S) 0.97 L/S [facility] GHC89-02% PRE (L/S) 0.65 L/S [facility] RJP13-27% PREDICTED (L/S) 2.29 L/S [facility] FEF75% LLN (L/S) 0.22 L/S [facility] FEF75% POST (L/S) 0.39 L/S [facility] FEF75% PRE (L/S0 0.21 L/S [facility] FEF75% PREDICTED (L/S) 0.61 L/S [facility] FEF75% ULN (L/S) 1.60 L/S [facility] FET POST (S) 15.55 S [facility] FET PRE (S) 15.09 S [facility] FEV1 LLN (L) 2.11 L [facility] FEV1 PRE (L) 1.97 L [facility] FEV1 PREDICTED (L) 2.90 L [facility] FEV1 ULN (L) 3.64 L [facility] FEV1/FVC LLN (%) 63 % [facility] FEV1/FVC POST (%) 52 % [facility] FEV1/FVC PRE (%) 52 % [facility] FEV1/FVC PREDICTED (%) 77 % [facility] FEV1_POST (L) 2.17 L [facility] FVC LLN (L) 2.86 L [facility] FVC POST (L) 4.16 L [facility] FVC PRE (L) 3.76 L [facility] FVC PREDICTED (L) 3.85 L [facility] FVC ULN (L) 4.85 L [facility] PEF LLN (L/S) 5.68 L/S [facility] PEF POST (L/S) 6.22 L/S [facility] PEF PRE (L/S) 5.49 L/S [facility] PEF ULN (L/S) 10.18 L/S [facility] [address] [facility] [place] [address] Test Date: 2024-06-08 Pat Name: MONTSE MARTINEZ Department: Room: Gender: Male [employer]: : 1950 Requested By: Order Number: [id number] Reading MD: Lon Mcgee MD Interpretive Statements Pre and post BD: Current ATS/ERS acceptability and repeatability standards for spirometry met. Start of test and EOFE criteria met. Medications and Allergies were reviewed for possible drug interactions per policy. No contraindications or sensitivities were noted. 4 puffs Albuterol (360 mcg) delivered by MDI via holding chamber. HR pre = 60/min, HR post = 65/min. //AP IMPRESSION: Spirometry indicates moderate obstruction. There is no significant bronchodilator response. Electronically Signed On 06-08-2024 11:22:38 EDT by Lon Mcgee MD ID: [id number] Name: MONTSE MARTINEZ Race: White Ht: 69.00 in Wt: 195.11 lbs Age: 74 Gender: Male : 1950 Dx: Shortness of breath Smoking Hx: Non-smoker Doctor: UZAIR PAK Test Date: 06/08/2024 Site: [facility] Tech: Radha Ramirez PRE-BRONCH POST-BRONCH Pre LLN Pred ULN %Pred Post %Pred %Chg SPIROMETRY FVC (L) 3.76 2.86 3.85 4.85 97 4.16 108 10 FEV1 (L) 1.97 2.11 2.90 3.64 67 2.17 74 6 FEV1/FVC 0.52 0.63 0.77 0.87 68 0.52 67 0 PEF L/s (L/sec) 5.49 5.68 7.93 10.18 69 6.22 78 13 FEF50 (L/sec) 0.93 1.69 3.81 5.94 24 1.32 34 41 FIF50 (L/sec) 4.57 4.79 4 FEF50/FIF50 0.20 90-100 0.27 34 FIVC (L) 3.41 3.75 10 BQY21-92 (L/sec) 0.65 0.97 2.29 4.18 28 0.97 42 50 Time (sec) 15.09 15.55 3 FET PEF (sec) 0.09 0.06 -29 JOHANNA (L) 0.16 0.13 -19 Vol Extrap % (%) 4 3 -26 Comments: Pre and post BD: Current ATS/ERS acceptability and repeatability standards for spirometry met. Start of test and EOFE criteria met. Medications and Allergies were reviewed for possible drug interactions per policy. No contraindications or sensitivities were noted. 4 puffs Albuterol (360 mcg) delivered by MDI via holding chamber. HR pre = 60/min, HR post = 65/min. //AP PULMONARY FUNCTION LAB [facility] Serum plqvc-5-shtrshgdyka me asurementon 06-08-2024 Alpha 1 antitrypsin [Mass/Vol] Serum xkhui-2-vrbiabvmwnx measurement 90-200 [facility] Serum or plasma alpha 1 anti trypsin phenotyping identification by immunofixationon 06-08-2024 Alpha 1 antitrypsin phenotyping Immunofixation Nom Serum or plasma alpha 1 antitrypsin phenotyping identification by immunofixation [facility] Comment on above: Alpha 1 Antitrypsin Phenotype and GenotypeLaboratory Accession Number: [id number]:No Variant Detected in SERPINA1 (PI*MM)Interpretation:DNA testing indicates that this patient does not have the S, Z, F, Carlos Manuel alleles of SERPINA1, the alpha-1 antitrypsin gene.Guidance:Genetic consultation and counseling of at risk family membersregarding this laboratory testing may be considered as clinicallyappropriate. Patients with no variants of SERPINA1 typically haveserum alpha-1 antitrypsin levels between 102-254 mg/dL. If thispatient has a serum alpha-1 antitrypsin level that is not consistentwith this genotype and alpha-1 antitrypsin deficiency caused by a rarevariant is clinically suspected, consider performing SERPINA1 genesequencing.Methodology:Isolated genomic DNA from the patient's blood specimen is evaluatedfor four variants in the alpha-1 antitrypsin gene SERPINA1 (RefSeqNM_[id number]; GRCh38/hg38) by multiplex polymerase chain reaction(PCR) followed by melting curve analysis. These included the two mostcommon pathogenic variants: S (c.863A>T, p.His205Qpi, g.[id number]), Z(c.1096G>A, p.Ovx601Ban, g.75006094), and the rarer variants: F(c.739C>T, p.Mcb943Fbq, g.90551090), I (c.187C>T, p.Mbs43Nef,g.36013539).Limitations:This Laboratory Developed Test (LDT) is designed to detect the S, Z, Fand I alleles. The S and Z alleles comprise 95% of non-wild typegenotypes. Uncommon variants or Single Nucleotide Polymorphisms mayaffect binding of LightMix or LightSNiP probes and may result in afalse negative, false positive, or indeterminate result. Absence ofthe S, Z, F, and I alleles is interpreted as PI*MM genotype. However,there are over 100 known rare variants of SERPINA1 that are notdetected by this LDT. Therefore, correlation of the genotype with thepatient's serum alpha-1 antitrypsin level and clinical manifestationsis strongly recommended.Frequency of S, Z, F and I Alleles in the general population: S: Heterozygous 2%; Homozygous 0.04%Z: Heterozygous 1%; Homozygous 0.01%F: Heterozygous 0.3%; Homozygous 0.001%I: Heterozygous 0.1%; Homozygous unknownAllele frequency information was gathered from the [employer] (Ex[employer]) and includes data from , , ,and populations (supporting data in references).Disclaimer:This test was developed and its performance characteristics determinedby [facility]'s [facility] Department. Ithas not been cleared or approved by the FDA. [facility] is regulated under CLIAas certified to perform high-complexity testing. This test is used forclinical purposes. It should not be regarded as investigational or forresearch.Testing and interpretation performed at [facility], [address] [place] [address]. CLIA Number: [id number]:1) Maxim DURAND, Nayla G, Cyrus ML, Avni M, Tomi CE, K,Mega DK, Irineo SL, Jairon DIAZ, Mauro BrandtK, Mis C, Juanita J. The Diagnosis and Management of Alpha-1 Antritrypsin Deficiency inthe Adult. Chronic Obstr Pulm Dis. 2016 Feb 11;3:668-682.2) Curtis JA, Keyur ON, Jairo ER, Imelda DG. a1-Antitrypsinphenotypes and associated serum protein concentrations in a largeclinical population. Chest.2013 Dec;143(4):1000-8.3) Ramiro A, Tyson NA, Davy CR, Ada FJ, Yony SJ, Hi. Molecular characterisation of three wpbqd-0-ercljvrbowi deficiencyvariants: proteinase inhibitor (Pi) nullcardiff (Kib758----Agh);PiMmalton (Sxg03----xcgikkzf) and PiI (Dhr00----Gvr). Hum Shayna. 1988Dec;84(1):55-8.4) Megan CUELLAR and Maxim DURAND. Clinical practice.Alpha1-antitrypsin deficiency. N Engl J Med. 2008;360(79)2180-19.5) Earnestine LOERA, Adilene F, Landry DURAND. The significance of the F variantof pimhy-8-bqziysxsmxz and unique case report of a PiFF homozygote.[facility] Pulm Med. 2013Apr 14;14:132.6) Mauro BALLESTEROS, Andre FREEMAN, and Arminda Pelaez. Alpha-1 AntitrypsinDeficiency. 2005Jul 04 [Updated 2016September 26]. In: Randi DURAND, Maria Isabel, Maco TO, et al., editors. GeneRevIntematixws [Internet]. [place] ([place]):[facility]; 4580-0769. Available from:http://www.ncbi.nlm.nih.gov/books/RHB1919/As reviewed by Julian Johnson, PhD, [facility] No Panel InformationOrdered By: Jose De Jesus Lechuga on 05-11-2024 COVID Antigen (POC) [facility] Quick Strep (POC) [facility] COVID Antigen (POC) [facility] Quick Strep (POC) [facility] Lipid 1996 panelon 4 Cholesterol [Mass/Vol] 170 mg/dL Normal <200 [facility] Comment on above: Order Comment: Speci men Type: BLOOD SPECIMENOrdering Facility: [facility] Address: [address] [place] [address] Result Comment: <200 mg/dL, Desirable 200-239 mg/dL, Borderline high >239 mg/dL, High Performed By: #### 2 4331-1 ####[facility] [id number] [address] [address] [facility] LABCLIA [id number] [place] [id number] Cholesterol in HDL [Mass/Vol] 57 mg/dL Normal >39 [facility] Comment on above: Order Comment: Speci men Type: BLOOD SPECIMENOrdering Facility: [facility] Address: [address] [place] [address] Result Comment: 40-5 9 mg/dL, Acceptable >59 mg/dL, High: Negative risk factor for coronary heart disease <40 mg/dL, Low: Positive risk factor for coronary heart disease Performed By: #### 2 4331-1 ####[facility] [id number] [address] LABCLIA [id number] [place] [address] Cholesterol in LDL [Mass/Vol] 94 mg/dL Normal <100 [facility] Comment on above: Order Comment: Speci men Type: BLOOD SPECIMENOrdering Facility: [facility] Address: [address] [place] [address] Result Comment: <100 mg/dL, Optimal 100-129 mg/dL, Near optimal/above optimal 130-159 mg/dL, Borderline high 160-189 mg/dL, High >189 mg/dL, Very high Secondary prevention optimal LDL Cholesterol levels are recommended to be < 70 mg/dL Performed By: #### 2 4331-1 ####[facility] [id number] [address] LABCLIA [id number] [place] [address] Cholesterol in LDL/Cholesterol in HDL [Mass ratio] 1.65 {ratio} Normal <2.54 [facility] Comment on above: Order Comment: Speci men Type: BLOOD SPECIMENOrdering Facility: [facility] Address: [address] [place] [address] Result Comment: Refe rence: 1. National Cholesterol Education Program ATP III Guideline At-A-Glance Quick Desk Reference: National Heart, Lung, and Blood [place]. National Institutes of Health. 2001: NIH Publication No. 01-3305. 2. An International Atherosclerosis Society position paper: global recommendations for the management of dyslipidemia: executive summary, Atherosclerosis. 2014: 232(2):410-413. Performed By: #### 2 4331-1 ####[facility] [id number] [address] LABCLIA [id number] [place] [address] Cholesterol in VLDL [Mass/Vol] 19 mg/dL Normal <30 [facility] Comment on above: Order Comment: Speci men Type: BLOOD SPECIMENOrdering Facility: [facility] Address: [address] [place] [address] Performed By: #### 2 4331-1 ####[facility] [id number] [address] [address] [facility] LABCLIA [id number] [place] [address] Cholesterol non HDL [Mass/Vol] 113 mg/dL Normal <130 [facility] Comment on above: Order Comment: Speci men Type: BLOOD SPECIMENOrdering Facility: [facility] Address: [address] [place] [address] Result Comment: <130 mg/dL, Optimal 130-159 mg/dL, Near optimal/above optimal 160-189 mg/dL, Borderline high 190-219 mg/dL, High >219 mg/dL, Very high Secondary prevention optimal non HDL Cholesterol levels are recommended to be <100 mg/dL Performed By: #### 2 4331-1 ####[facility] [id number] [address] [address] [facility] LABCLIA [id number] [place] [address] Cholesterol.total/Cho lesterol in HDL [Mass ratio] 2.98 {ratio} Normal <5.10 [facility] Comment on above: Order Comment: Speci men Type: BLOOD SPECIMENOrdering Facility: [facility] Address: [address] [place] [address] Performed By: #### 2 4331-1 ####[facility] [id number] [address] [address] [facility] LABCLIA [id number] [place] [address] FASTING TIME 12 hrs Normal [facility] Comment on above: Order Comment: Speci men Type: BLOOD SPECIMENOrdering Facility: [facility] Address: [facility] [place] [address] Performed By: #### 2 4331-1 ####[facility] [id number] [address] LABCLIA [id number] [place] [address] Triglyceride [Mass/Vol] 97 mg/dL Normal <150 [facility] Comment on above: Order Comment: Speci men Type: BLOOD SPECIMENOrdering Facility: [facility] Address: [address] [place] [address] Result Comment: <150 mg/dL, Normal 150-199 mg/dL, Borderline high 200-499 mg/dL, High >499 mg/dL, Very high Performed By: #### 2 4331-1 ####[facility] [id number] [address] LABCLIA [id number] [place] [address] Lab Reportson 01-02-2024 Lab Reports [id number] Normal [facility] Carbon dioxide, total [Moles /volume] in Serum or PlasmaOrdered By: Isreal Dahl on 12-31-2023 CO2 [Moles/Vol] 31.6 mmol/L High 21.0-31.0 [facility] Comment on above: Performed By: #### C REAT, CA, URIC, PTH, LYTES, BUN #### [facility] [address] [place] [address] [place] Chloride [Moles/volume] in S shannon or PlasmaOrdered By: Isreal Dahl on 12-31-2023 Chloride [Moles/Vol] 105 mmol/L Normal 98-107 [facility] Comment on above: Performed By: #### C REAT, CA, URIC, PTH, LYTES, BUN #### [facility] [address] [place] [id number] [place] Potassium [Moles/volume] in Serum or PlasmaOrdered By: Isreal Dahl on 12-31-2023 Potassium [Moles/Vol] 4.7 mmol/L Normal 3.5-5.1 [facility] Comment on above: Performed By: #### C REAT, CA, URIC, PTH, LYTES, BUN #### [facility] [address] Serum or plasma anion gap de terminationOrdered By: Isreal Dahl on 12-31-2023 Anion gap [Moles/Vol] 9.1 mmol/L Normal 6.0-15.0 [facility] Comment on above: Result Comment: PERF ORMED BY: [facility] [address] [place] [address] PATHOLOGIST [employer] BUILDER SU DOSS M.D. Performed By: #### C REAT, CA, URIC, PTH, LYTES, BUN #### [facility] [address] Sodium [Moles/volume] in Ser um or PlasmaOrdered By: Isreal Dahl on 12-31-2023 Sodium [Moles/Vol] 141 mmol/L Normal 136-145 [facility] Comment on above: Performed By: #### C REAT, CA, URIC, PTH, LYTES, BUN #### [facility] [address] [place] [id number] [facility] XR chest 2V*on 10-20-2023 XR chest 2V* [facility] impok Other XR chest 2V* [facility] impok Other XR chest 2V* [address] [facility] impok Other XR chest 2V* [place] [address] [facility] impok Other XR chest 2V* XRay Report [facility] impok Other XR chest 2V* Signed [facility] impok Other XR chest 2V* Patient: Logan Martinez MR#: [id number] [employer] Other XR chest 2V* 03 [employer] Other XR chest 2V* : 1950 Acct:[id number] [employer] Other XR chest 2V* Age/Sex: 73 / M ADM Date: 10/20/23 [employer] Other XR chest 2V* Loc: XD Room: Type: [facility] [employer] Other XR chest 2V* Attending Dr: Sole Daley DO [employer] Other XR chest 2V* Copies to: Sole Daley DO [employer] Other XR chest 2V* Ordering Provider: Reinier Daley DO [employer] Other XR chest 2V* Date of Service: 10/20/23 [employer] Other XR chest 2V* [address]) XR/XR chest 2V*: SOB (shortness of breath) [employer] Other XR chest 2V* Chest 2 views [facility] Other XR chest 2V* CLINICAL HISTORY: Shortness of breath cough and congestion for one week. [employer] Other XR chest 2V* COMPARISON: None [employer] Other XR chest 2V* FINDINGS: [employer] Other XR chest 2V* Heart normal in size . Calcified granuloma projecting over the right lung base on the PA view. No [employer] Other XR chest 2V* lung consolidation pneumothorax pleural effusion or free air. [employer] Other XR chest 2V* X R/XR chest 2V* [employer] Other XR chest 2V* IMPRESSION: [employer] Other XR chest 2V* NO ACUTE CARDIOPULMO NARY ABNORMALITY. [employer] Other XR chest 2V* Impression dictated by: Mitch Shay Jr., D.OChris10/20/2023 11:47 AM [employer] Other XR chest 2V* Dictation Location: [place] [address] [employer] Other XR chest 2V* Transcribed By: PWS 10/20/23 [facility] [employer] Other XR chest 2V* Dictated By: Mitch Shay Jr, DO 10/20/23 [facility] [employer] Other XR chest 2V* Signed By: [employer] Other XR chest 2V* 10/20/23 [facility] [employer] [facility] Other XR chest 2V* [facility] [employer] [address] [place] [address] XRay Report Signed Patient: Montse Martinez MR#: [id number] 03 : 1950 Acct:[id number] Age/Sex: 73 / M ADM Date: 10/20/23 Loc: XD Room: Type: [facility] Attending Dr: Sole Daley DO Copies to: Sole Daley DO Ordering Provider: Sole Daley DO Date of Service: 10/20/23 XR/XR chest 2V*: SOB (shortness of breath) Chest 2 views CLINICAL HISTORY: Shortness of breath cough and congestion for one week. COMPARISON: None FINDINGS: Heart normal in size. Calcified granuloma projecting over the right lung base on the PA view. No lung consolidation pneumothorax pleural effusion or free air. XR/XR chest 2V* IMPRESSION: NO ACUTE CARDIOPULMONARY ABNORMALITY. Impression dictated by: Mitch Shay Jr., DChrisOChris10/20/2023 11:47 AM Dictation Location: [place] [address] Transcribed By: [facility] 10/20/23 1147 Dictated By: Mitch Shay Jr, DO 10/20/23 1146 Signed By: 10/20/23 1147 Normal [facility] 24 Hr Urine Uric Acidon 09-08 Uric Acid, 24 Hr Urine 528.5 Normal 136.1-771. 1 [facility] Comment on above: Order Comment: START 09/25/23 @ 0605 END 09/26/23 @0555 URINE VOLUME (MILLILTERS): 1948 Result Comment: Perf ormed at: - [facility] [place] [address] [place], [place] [id number] Building Services Engineer: Jeremy Meléndez PhD, Phone: [phone] Performed By: #### C REAT, CA, URIC, PTH, LYTES, BUN #### [address] Urine Uric Acid 27.1 mg/dL Normal Not Estab. The [facility] Comment on above: Order Comment: START 09/25/23 @ 0605 END 09/26/23 @0555 URINE VOLUME (MILLILTERS): 1948 Performed By: #### C REAT, CA, URIC, PTH, LYTES, BUN #### [address] 24 hour urine sodium measure ment (moles/time)Ordered By: Isreal Dahl on 09-26-2023 Sodium (24H U) [Moles/Time] 111 mmol/24 40-220 [facility] 24 hour urine uric acid yumiko urement (mass/time)Ordered By: Isreal Dahl on 09-26-2023 Urate (24H U) [Mass/Time] 528.5 mg/24 hr 136.1-771. 1 [facility] Comment on above: Performed at: - [facility] [id number] [place], [place] [id number] Director: Jeremy Meléndez PhD, Phone: [phone] CT biopsyOrdered By: Isreal Dahl on 09-26-2023 CT biopsy 24 Hours [facility] Calcium [Mass/time] in 24 ho ur UrineOrdered By: Isreal Dahl on 09-26-2023 Calcium (24H U) [Mass/Time] 96 mg/24 hr 0-320 [facility] Calcium [Mass/volume] in 24 hour UrineOrdered By: Isreal Dahl on 09-26-2023 Calcium (24H U) [Mass/Vol] 4.9 mg/dL Not Estab. [facility] Calcium, 24Hr Urineon 2023 Calcium, Urine 4.9 mg/dL Normal Not Estab. The [facility] Comment on above: Order Comment: START 09/25/23 @ 0605 END 09/26/23 @0555 URINE VOLUME (MILLILTERS): 1948 Performed By: #### C REAT, CA, URIC, PTH, LYTES, BUN #### [facility] [address] [place] [id number] [facility] Calcium, Urine 24 Hr 96 Normal 0-320 [facility] Comment on above: Order Comment: START 09/25/23 @ 0605 END 09/26/23 @0555 URINE VOLUME (MILLILTERS): 1948 Performed By: #### C REAT, CA, URIC, PTH, LYTES, BUN #### [facility] [address] [place] [id number] [facility] Citric Acid, Urine, 24 Houro n 09-26-2023 Citric Acid, Urine 159 mg/L Normal Undefined [facility] Comment on above: Order Comment: START 09/25/23 @ 0605 END 09/26/23 @0555 URINE VOLUME (MILLILTERS): 1948 Result Comment: This test was developed and its performance characteristics determined by [facility]. It has not been cleared or approved by the Food and Drug Administration. Performed By: #### C REAT, CA, URIC, PTH, LYTES, BUN #### [facility] [address] [place] [phone] [place] Citric Acid, Urine, 24HR 310 Low 320-1240 [facility] Comment on above: Order Comment: START 09/25/23 @ 0605 END 09/26/23 @0555 URINE VOLUME (MILLILTERS): 1948 Result Comment: Perf ormed at: - [facility] [place] [address] [place], [place] [id number] Building Services Engineer: Sheela Chapin MD, Phone: [phone] PERFORMED BY: [place] [address] PATHOLOGIST [employer]EN [employer] LO[employer] BUILDER SU DOSS M.D. Performed By: #### C REAT, CA, URIC, PTH, LYTES, BUN #### [place] [phone] [facility] Margaret Time and Vol 24 hr uron 09-26-2023 Total Volume, Urine 1948 Normal [facility] Comment on above: Order Comment: START 09/25/23 @ 0605 END 09/26/23 @0555 URINE COLLECTION TIME (HRS): 24 URINE VOLUME (MILLILTERS): 1948 Result Comment: PERF ORMED BY: [place] [address] PATHOLOGIST [employer]EN [employer] LO[employer] BUILDER SU DOSS M.D. Performed By: #### C REAT, CA, URIC, PTH, LYTES, BUN #### [address] Urine Collection Time 24 Normal [facility] Comment on above: Order Comment: START 09/25/23 @ 0605 END 09/26/23 @0555 URINE COLLECTION TIME (HRS): 24 URINE VOLUME (MILLILTERS): 1948 Performed By: #### C REAT, CA, URIC, PTH, LYTES, BUN #### [place] [id number] [facility] Creatinine [Mass/volume] in UrineOrdered By: Isreal Dahl on 09-26-2023 Creatinine (U) [Mass/Vol] 71.00 mg/dL 14.00-26.0 0 [facility] Creatinine, 24 Hr Urineon Creatinine 24 Hour, Urine 1.38 g/24_hr Normal 1.00-2.09 [facility] Comment on above: Order Comment: START 09/25/23 @ 0605 END 09/26/23 @0555 URINE COLLECTION TIME (HRS): 24 URINE VOLUME (MILLILTERS): 1948 Performed By: #### C OL T V, CREA24, U24 NA #### [facility] [address] [place] [address] #### URIC 24HRU, MAG 24HRU, OXAL 24HRU, PHOS 24HRU, CITRIC UR, U24 CA #### [facility] , Creatinine, Urine 71.00 mg/dL High 14.00-26.0 0 [facility] Comment on above: Order Comment: START 09/25/23 @ 0605 END 09/26/23 @0555 URINE COLLECTION TIME (HRS): 24 URINE VOLUME (MILLILTERS): 1948 Performed By: #### C OL T V, CREA24, U24 NA #### [facility] [address] [place] [address] #### URIC 24HRU, MAG 24HRU, OXAL 24HRU, PHOS 24HRU, CITRIC UR, U24 CA #### [facility] , Magnesium [Mass/time] in 24 hour UrineOrdered By: Isreal Dahl on 09-26-2023 Magnesium (24H U) [Mass/Time] 128.7 mg/24 hr 12.0-293.0 [facility] Magnesium [Mass/volume] in U rineOrdered By: Isreal Dahl on 09-26-2023 Magnesium (U) [Mass/Vol] 6.6 mg/dL Not Estab. [facility] Magnesium, Urine 24Hron 09-08 Magnesium, 24Hr Urine 128.7 Normal 12.0-293.0 [facility] Comment on above: Order Comment: START 09/25/23 @ 0605 END 09/26/23 @0555 URINE VOLUME (MILLILTERS): 1948 Performed By: #### C REAT, CA, URIC, PTH, LYTES, BUN #### [facility] [address] [place] [address] Magnesium, Urine 6.6 mg/dL Normal Not Estab. [facility] Comment on above: Order Comment: START 09/25/23 @ 0605 END 09/26/23 @0555 URINE VOLUME (MILLILTERS): 1948 Performed By: #### C REAT, CA, URIC, PTH, LYTES, BUN #### [facility] [address] No Panel InformationOrdered By: Isreal Dahl on 09-26-2023 Urine Citric Acid 159 mg/L Undefined [facility] Comment on above: This test was develo ped and its performance characteristicsdetermined by [facility]. It has not been cleared orapproved by the Food and Drug Administration. Urine Citric Acid 24 Hour 310 mg/24 hr 320-1240 [facility] Comment on above: Performed at: [employer] [address] [id number] Director: Sheela Chapin MD, Phone: [phone] Urine Creatinine 24 Hour 1.38 g/24 hr 1.00-2.09 [facility] Oxalate [Mass/time] in 24 ho ur UrineOrdered By: Isreal Dahl on 09-26-2023 Oxalate (24H U) [Mass/Time] 29 mg/24 hr 7-44 [facility] Comment on above: Performed at: [employer] [address] [id number] Director: Sheela Chapin MD, Phone: [phone] Oxalate [Mass/volume] in Uri neOrdered By: Isreal Dahl on 09-26-2023 Oxalate (U) [Mass/Vol] 15 mg/L Undefined [facility] Oxalate, Quant, 24Hr Urineon 09-26-2023 Oxalates, Urine 15 mg/L Normal Undefined [facility] Comment on above: Order Comment: START 09/25/23 @ 0605 END 09/26/23 @0555 URINE VOLUME (MILLILTERS): 1948 Performed By: #### C REAT, CA, URIC, PTH, LYTES, BUN #### [facility] [address] [place] [address] [place] Oxalates, Urine 24Hr 29 Normal 7-44 [facility] Comment on above: Order Comment: START 09/25/23 @ 0605 END 09/26/23 @0555 URINE VOLUME (MILLILTERS): 1948 Result Comment: Perf ormed at: [employer] [facility] [address] [id number] Building Services Engineer: Sheela Chapin MD, Phone: [phone] Performed By: #### C REAT, CA, URIC, PTH, LYTES, BUN #### [facility] [address] [place] [phone] [place] Phosphate [Mass/time] in 24 hour UrineOrdered By: Isreal Dahl on 09-26-2023 Phosphate (24H U) [Mass/Time] 878 mg/24 hr 390-1425 [facility] Phosphate [Mass/volume] in U rineOrdered By: Isreal Dahl on 09-26-2023 Phosphate (U) [Mass/Vol] 45.0 mg/dL Not Estab. [facility] Phosphorus, 24Hr Urineon Phosphorous, Urine 45.0 mg/dL Normal Not Estab. [facility] Comment on above: Order Comment: START 09/25/23 @ 0605 END 09/26/23 @0555 URINE VOLUME (MILLILTERS): 1948 Performed By: #### C REAT, CA, URIC, PTH, LYTES, BUN #### [place] [id number] [facility] Phosphorus, Urine 24Hr 878 Normal 390-1425 [facility] Comment on above: Order Comment: START 09/25/23 @ 0605 END 09/26/23 @0555 URINE VOLUME (MILLILTERS): 1948 Performed By: #### C REAT, CA, URIC, PTH, LYTES, BUN #### [address] Sodium [Moles/volume] in Uri neOrdered By: Isreal Dahl on 09-26-2023 Sodium (U) [Moles/Vol] 57.0 mmol/L Normal [facility] Comment on above: No reference range e stablished Order Comment: START 09/25/23 @ 0605 END 09/26/23 @0555 URINE COLLECTION TIME (HRS): 24 URINE VOLUME (MILLILTERS): 1948 Result Comment: No r eference range established Performed By: #### C OL T V, CREA24, U24 NA #### [address] #### URIC 24HRU, MAG 24HRU, OXAL 24HRU, PHOS 24HRU, CITRIC UR, U24 CA #### [facility] , Sodium, 24 Hr Urineon 2023 Sodium 24 Hour Urine 111 Normal 40-220 [facility] Comment on above: Order Comment: START 09/25/23 @ 0605 END 09/26/23 @0555 URINE COLLECTION TIME (HRS): 24 URINE VOLUME (MILLILTERS): 1948 Performed By: #### C OL T V, CREA24, U24 NA #### [facility] [address] [place] [address] [place] #### URIC 24HRU, MAG 24HRU, OXAL 24HRU, PHOS 24HRU, CITRIC UR, U24 CA #### [facility] , Urine uric acid measurement (mass/volume)Ordered By: Isreal Dahl on 09-26-2023 Urate (U) [Mass/Vol] 27.1 mg/dL Not Estab. [facility] Urine volume measurementOrde red By: Isreal Dahl on 09-26-2023 Specimen volume (U) 1950 ml [facility] Calcium [Mass/volume] in Ser um or PlasmaOrdered By: Isreal Dahl on 09-24-2023 Calcium [Mass/Vol] 9.3 mg/dL Normal 8.6-10.3 [facility] Comment on above: Performed By: #### C REAT, CA, URIC, PTH, LYTES, BUN #### [facility] [address] [place] [address] [place] Carbon dioxide, total [Moles /volume] in Serum or PlasmaOrdered By: Isreal Dahl on 09-24-2023 CO2 [Moles/Vol] 30.7 mmol/L Normal 21.0-31.0 [facility] Comment on above: Performed By: #### C REAT, CA, URIC, PTH, LYTES, BUN #### [facility] [address] [place] [phone] [place] Chloride [Moles/volume] in S shannon or PlasmaOrdered By: Isreal Dahl on 09-24-2023 Chloride [Moles/Vol] 104 mmol/L Normal 98-107 [facility] Comment on above: Performed By: #### C REAT, CA, URIC, PTH, LYTES, BUN #### [address] Creatinineon 09-24-2023 GFR/1.73 sq M.predicted MDRD (S/P/Bld) [Vol rate/Area] mL/min/{1.73_m2} Normal [facility] Comment on above: Performed By: #### C REAT, CA, URIC, PTH, LYTES, BUN #### [address] Creatinine [Mass/volume] in Serum or PlasmaOrdered By: Isreal Dahl on 09-24-2023 Creatinine [Mass/Vol] 1.00 mg/dL Normal 0.70-1.30 [facility] Comment on above: Performed By: #### C REAT, CA, URIC, PTH, LYTES, BUN #### [address] No Panel InformationOrdered By: Isreal Dahl on 09-24-2023 Estimated GFR (CKD-EPI) > 60.0 mL/Min [facility] Creatinine Clearance (Chem N/A [facility] Parathyrin.intact [Mass/volu me] in Serum or PlasmaOrdered By: Isreal Dahl on 09-24-2023 Parathyrin.intact [Mass/Vol] 33.9 pg/mL [facility] Parathyroid Hormone [place] 09-24-2023 Parathyroid Hormone Intact 33.9 pg/mL Normal [facility] Comment on above: Result Comment: PERF ORMED BY: [place] [address] PATHOLOGIST [employer] SU DOSS M.D. Performed By: #### C REAT, CA, URIC, PTH, LYTES, BUN #### [address] Potassium [Moles/volume] in Serum or PlasmaOrdered By: Isreal Dahl on 09-24-2023 Potassium [Moles/Vol] 4.8 mmol/L Normal 3.5-5.1 [facility] Comment on above: Performed By: #### C REAT, CA, URIC, PTH, LYTES, BUN #### [address] Serum or plasma anion gap de terminationOrdered By: Isreal Dahl on 09-24-2023 Anion gap [Moles/Vol] 11.1 mmol/L Normal 6.0-15.0 [facility] Comment on above: Performed By: #### C REAT, CA, URIC, PTH, LYTES, BUN #### [address] Sodium [Moles/volume] in Ser um or PlasmaOrdered By: Isreal Dahl on 09-24-2023 Sodium [Moles/Vol] 141 mmol/L Normal 136-145 [facility] Comment on above: Performed By: #### C REAT, CA, URIC, PTH, LYTES, BUN #### [address] Urate [Mass/volume] in Serum or PlasmaOrdered By: Isreal Dahl on 09-24-2023 Urate [Mass/Vol] 6.4 mg/dL Normal 4.4-7.6 [facility] Comment on above: Result Comment: PERF ORMED BY: [place] [address] PATHOLOGIST [employer] SU DOSS M.D. Performed By: #### C REAT, CA, URIC, PTH, LYTES, BUN #### [address] Urea nitrogen [Mass/volume] in Serum or PlasmaOrdered By: Isreal Dahl on 09-24-2023 Urea nitrogen [Mass/Vol] 19 mg/dL Normal 7-25 [facility] Comment on above: Performed By: #### C REAT, CA, URIC, PTH, LYTES, BUN #### [place] [address] [place] XR KUBon 09-24-2023 XR KUB [facility] [address] [place] [address] XRay Report Signed Patient: Montse Martinez MR#: [id number] [birth year] : 1950 Acct:[id number] Age/Sex: 73 / M ADM Date: 09/24/23 Loc: XD Room: Type: [facility] Attending Dr: Isreal Dahl MD Copies to: Isreal Dahl MD Ordering Provider: Isreal Dahl MD Date of Service: 09/24/23 XR/XR KUB: N20.0 KUB COMPARISON: 06/17/2023 HISTORY: Follow-up right-sided kidney stone. History of lithotripsy. THORAX: Lung bases unremarkable. FREE AIR: Supine position limits assessment BOWEL: No gaseous intestinal distention. STOOL: No significant stool RENAL STONES: Left renal calculi no longer seen. Punctate right renal calculi present. No ureteral or bladder calculus. VASCULAR CALCIFICATIONS: Unremarkable SOFT TISSUE: Unremarkable BONES: Unremarkable POSTSURGICAL CHANGES: Lower pelvic surgical clips redemonstrated. XR/XR KUB IMPRESSION: Continued punctate right nephrolithiasis. Impression dictated by: Donnie Ledesma M.D.09/24/2023 3:03 PM Dictation Location: [place] [address] Transcribed By: [facility] 09/24/23 1503 Dictated By: Donnie Ledesma DO 09/24/23 1501 Signed By: 09/24/23 1503 Normal [facility] CHEMISTRYOrdered By: Cornelius glasgow on 09-16-2023 Albumin [Mass/Vol] 4.5 g/dL Normal 3.3 - 5.0 gm/dL Remisol Chem Albumin/Globulin [Mass ratio] 1.6 {ratio} Normal 1.1 - 2.2 [facility] Alk Phos 72 [iU]/d Normal 21 - 98 Int._Unit/ L Remisol Chem ALT 17 [iU]/d Normal 6 - 46 Int._Unit/ L [facility] Chem Anion gap [Moles/Vol] 13 mmol/L Normal 6 - 16 mEq/L Remisol Chem AST 17 [iU]/d Normal 5 - 43 Int._Unit/ L Remisol Chem Bili Direct 0.1 mg/dL Normal [...] 09-16-2023 eGFR 65 mL/min/1.73 m2 Normal >=59mL/min /1.73 m2 [facility] Chem S HEMATOLOGYOrdered By: SYSTEM SYSTEM on 09-16-2023 Basophils/100 WBC (Bld) 0.6 % Normal 0.0 - 2.0 % [facility] HemeAutoSS Basophils/Leukocytes Auto (Bld) [Pure # fraction] 0.1 E9/L Normal 0.0 - 0.2 E9/L [facility] HemeAutoSS Eosinophils/100 WBC (Bld) 0.7 % Normal 0.0 - 8.0 % [facility] HemeAutoSS Eosinophils/Leukocyte s Auto (Bld) [Pure # fraction] 0.1 E9/L Normal 0.0 - 0.5 E9/L [facility] HemeAutoSS Lymphocytes/100 WBC (Bld) 15.6 % Normal 14.0 - 50.0 % [facility] HemeAutoSS Lymphocytes/Leukocyte s Auto (Bld) [Pure # fraction] 2.0 E9/L Normal 1.0 - 4.0 E9/L [facility] HemeAutoSS Monocytes/100 WBC (Bld) 5.7 % Normal 4.0 - 14.0 % [facility] HemeAutoSS Monocytes/Leukocytes Auto (Bld) [Pure # fraction] 0.7 E9/L Normal 0.2 - 1.0 E9/L [facility] HemeAutoSS Neutrophils/100 WBC (Bld) 77.4 % High 36.0 - 75.0 % [facility] HemeAutoSS Neutrophils/Leukocyte s Auto (Bld) [Pure # fraction] 9.9 E9/L [...] 12.7 E9/L High 4.0 - 11.0 E9/L [facility] HemeAutoSS URINALYSISOrdered By: Cornelius Gordon on 09-16-2023 Bacteria LM Ql (Urine sed) Trace /HPF Normal Trace/HPF [facility] UA Auto SS Bilirubin Ql (U) Negative [...] AM) Normal Negative [facility] UA Auto SS [place].plasma/Lithiu m.RBC (Bld) [Mass ratio] 0-3 /HPF Normal 0-3/HPF [...] Desc Clean Catch (09/16/23 4:06 AM) Normal [facility] UA Auto SS Urobilinogen Qn (U) [id number] {Anthony'U}/dL Normal 0.0 - 1.0 EU/dL [facility] UA Auto SS WBC Auto Ql (U) Negative (09/16/23 4:06 AM) Normal Negative [facility] UA Auto SS WBC LM.HPF (Urine sed) [#/Area] 0-5 /HPF Normal 0-5/HPF [facility] UA Auto SS Cholesterol [Mass/volume] in Serum or PlasmaOrdered By: Lev Price on 08-11-2023 Cholesterol [Mass/Vol] 148 mg/dL 140-200 [facility] Comment on above: Chol less than 200 m g/dl low riskChol 201-239 mg/dl borderline riskChol 240 mg/dl and greater high risk Cholesterol in LDL Calc [Mas s/Vol]Ordered By: Lev Price on 08-11-2023 Cholesterol in LDL [Mass/Vol] 78 mg/dL 0-100 [facility] Comment on above: LDL ATP III CLASSIFI CATIONLDL less than 100 mg/dL OptimalLDL 100-129 mg/dL Near or above optimalLDL 130-159 mg/dL Borderline highLDL 160-189 mg/dL HighLDL greater than 189 mg/dL Very high Cholesterol in VLDL Calc [Ma ss/Vol]Ordered By: Lev Price on 08-11-2023 Cholesterol in VLDL [Mass/Vol] 18 mg/dL [facility] Serum or plasma high density lipoprotein (HDL) cholesterol measurementOrdered By: Lev Price on 08-11-2023 Cholesterol in HDL [Mass/Vol] 52 mg/dL 23-92 [facility] Comment on above: HDL CHOL ATP-III CLA SSIFICATION Cardiovascular RiskHDL > or equal to 60 mg/dL LOWHDL < 40 mg/dL HIGH Serum or plasma total choles terol/high density lipoprotein (HDL) cholesterol mass ratOrdered By: Lev Price on 08-11-2023 Cholesterol.total/Cho lesterol in HDL [Mass ratio] 2.8 {ratio} <5.0 [facility] Triglyceride [Mass/volume] i n Serum or PlasmaOrdered By: Lev Price on 08-11-2023 Triglyceride [Mass/Vol] 91 mg/dL 0-149 [facility] Comment on above: TRIG ATP III CLASSIF ICATIONTRIG less than 150 mg/dL NormalTRIG 150-199 mg/dL Borderline highTRIG 200-500 mg/dL High TRIG greater than 500 mg/dL Very highStandard traceable to the Center for Disease Conrtrol and Prevention (CDC) test method. Creatinine [Mass/volume] in Serum or PlasmaOrdered By: Isreal Dahl on 06-24-2023 Creatinine [Mass/Vol] 0.94 mg/dL 0.70-1.30 [facility] No Panel InformationOrdered By: Isreal Dahl on 06-24-2023 Estimated GFR (CKD-EPI) > 60.0 mL/Min [facility] Creatinine Clearance (Chem N/A [facility] Urea nitrogen [Mass/volume] in Serum or PlasmaOrdered By: Isreal Dahl on 06-24-2023 Urea nitrogen [Mass/Vol] 15 mg/dL 7-25 [facility] Basophils Auto (Bld) [#/Vol] Ordered By: Sole Daley on 07-20-2022 Basophils (Bld) [#/Vol] 0.0 10*3/uL 0.0-0.2 [facility] Basophils/100 WBC Auto (Bld) Ordered By: Sole Daley on 07-20-2022 Basophils/100 WBC (Bld) 0.6 % . [facility] Body fluid albumin measureme nt (mass/volume)Ordered By: Sole Daley on 07-20-2022 Albumin (Body fld) [Mass/Vol] 3.8 g/dL 3.2-5.5 [facility] Cholesterol [Mass/volume] in Serum or PlasmaOrdered By: Sole Daley on 07-20-2022 Cholesterol [Mass/Vol] 179 mg/dL 140-200 [facility] Comment on above: Chol less than 200 m g/dl low riskChol 201-239 mg/dl borderline riskChol 240 mg/dl and greater high risk Cholesterol in LDL Calc [Mas s/Vol]Ordered By: Sole Daley on 07-20-2022 Cholesterol in LDL [Mass/Vol] 112 mg/dL 0-100 [facility] Comment on above: LDL ATP III CLASSIFI CATIONLDL less than 100 mg/dL OptimalLDL 100-129 mg/dL Near or above optimalLDL 130-159 mg/dL Borderline highLDL 160-189 mg/dL HighLDL greater than 189 mg/dL Very high Cholesterol in VLDL Calc [Ma ss/Vol]Ordered By: Sole Daley on 07-20-2022 Cholesterol in VLDL [Mass/Vol] 17 mg/dL [facility] Creatinine and Glomerular fi ltration rate.predicted panel (S/P/Bld)Ordered By: Sole Daley on 07-20-2022 Creatinine [Mass/Vol] 0.92 mg/dL 0.64-1.27 [facility] Eosinophils Auto (Bld) [#/Vo l]Ordered By: Sole Daley on 07-20-2022 Eosinophils (Bld) [#/Vol] 0.3 10*3/uL 0.0-0.45 [facility] Eosinophils/100 WBC Auto (Bl d)Ordered By: Sole Daley on 07-20-2022 Eosinophils/100 WBC (Bld) 5.7 % . [facility] Erythrocyte distribution wid th Auto (RBC) [Ratio]Ordered By: Sole Daley on 07-20-2022 Erythrocyte distribution width (RBC) [Ratio] 13.6 % 12.0-14.8 [facility] Estimated glomerular filtrat ion rate (GFR) non- AmericanOrdered By: Sole Daley on 07-20-2022 GFR/1.73 sq M.predicted among non-blacks MDRD (S/P/Bld) [Vol rate/Area] > 60 mL/Min [facility] Globulin Calc (S) [Mass/Vol] Ordered By: Sole Daley on 07-20-2022 Globulin (S) [Mass/Vol] 2.6 g/dL [facility] Glucose mean value [Mass/vol ume] in Blood Estimated from glycated hemoglobinOrdered By: Sole Daley on 07-20-2022 Average glucose Estimated from glycated hemoglobin (Bld) [Mass/Vol] 131 mg/dL [facility] Hematocrit Auto (Bld) [Volum e fraction]Ordered By: Sole Daley on 07-20-2022 Hematocrit (Bld) [Volume fraction] 43.2 % 38.8-50.0 [facility] Hemoglobin A1c percentageOrd ered By: Sole Daley on 07-20-2022 HbA1c (Bld) [Mass fraction] 6.2 % 4.3-5.6 [facility] Comment on above: Increased risk for d iabetes: 5.7 - 6.4diabetes: >6.4glycemic control for adults with diabetes: <7.0 Hemoglobin [Mass/volume] in BloodOrdered By: Sole Daley on 07-20-2022 Hemoglobin (Bld) [Mass/Vol] 14.6 g/dL 13.0-17.0 [facility] Laboratory - Hematology and Cell countsOrdered By: Sole Daley on 07-20-2022 Nucleated RBC/100 WBC (Bld) [Ratio] 0.0 % 0-0.5 [facility] Leukocytes [#/volume] in Blo od by Automated countOrdered By: Sole Daley on 07-20-2022 WBC (Bld) [#/Vol] 5.9 10*3/uL 4.5-11.0 [facility] Lymphocytes Auto (Bld) [#/Vo l]Ordered By: Sole Daley on 07-20-2022 Lymphocytes (Bld) [#/Vol] 1.7 10*3/uL 1.00-4.8 [facility] Lymphocytes/100 WBC Auto (Bl d)Ordered By: Sole Daley on 07-20-2022 Lymphocytes/100 WBC (Bld) 28.1 % . [facility] MCH Auto (RBC) [Entitic mass ]Ordered By: Sole Daley on 07-20-2022 MCH (RBC) [Entitic mass] 30.0 pg 27.5-35.2 [facility] MCHC Auto (RBC) [Mass/Vol]Or dered By: Sole Daley on 07-20-2022 MCHC (RBC) [Mass/Vol] 33.9 g/dL 32.5-35.6 [facility] MCV Auto (RBC) [Entitic vol] Ordered By: Sole Daley on 07-20-2022 MCV (RBC) [Entitic vol] 88.3 fL 83.5-101 [facility] Monocytes Auto (Bld) [#/Vol] Ordered By: Sole Daley on 07-20-2022 Monocytes (Bld) [#/Vol] 0.6 10*3/uL 0.0-0.8 [facility] Monocytes/100 WBC Auto (Bld) Ordered By: Sole Daley on 07-20-2022 Monocytes/100 WBC (Bld) 10.4 % . [facility] Neutrophils Auto (Bld) [#/Vo l]Ordered By: Sole Daley on 07-20-2022 Neutrophils (Bld) [#/Vol] 3.3 10*3/uL 1.8-7.7 [facility] Neutrophils/100 WBC Auto (Bl d)Ordered By: Sole Daley on 07-20-2022 Neutrophils/100 WBC (Bld) 55.2 % . [facility] No Panel InformationOrdered By: Sole Daley on 07-20-2022 Estimated GFR () > 60 mL/Min [facility] Comment on above: GFR estimated refere nce range: According to KDOQI guidelines, <60 ml/min/1.73m2 is sufficient to diagnose a patient with chronic kidney disease. Pharmacy Creatinine Clearance (Chem N/A [facility] Prostate Specific Antigen Screen 3.470 ng/mL 0.000-4.00 0 [facility] Platelet mean volume Auto (B ld) [Entitic vol]Ordered By: Sole Daley on 07-20-2022 Platelet mean volume (Bld) [Entitic vol] 9.0 fL 6.6-10.1 [facility] Platelets Auto (Bld) [#/Vol] Ordered By: Sole Daley on 07-20-2022 Platelets (Bld) [#/Vol] 224 10*3/uL 150-450 [facility] Protein [Mass/volume] in Ser um or PlasmaOrdered By: Sole Daley on 07-20-2022 Protein [Mass/Vol] 6.4 g/dL 6.1-7.9 [facility] RBC Auto (Bld) [#/Vol]Ordere d By: Sole Daley on 07-20-2022 RBC (Bld) [#/Vol] 4.89 10*6/uL 3.90-5.60 [facility] Serum or plasma alanine bullock otransferase measurement without P-5'-P (enzymatic activiOrdered By: Sole Daley on 07-20-2022 ALT No additional P-5'-P [Catalytic activity/Vol] 20 U/L 10-60 [facility] Serum or plasma albumin/glob ulin mass ratioOrdered By: Sole Daley on 07-20-2022 Albumin/Globulin [Mass ratio] 1.5 {ratio} [facility] Serum or plasma alkaline gaurav sphatase measurement (enzymatic activity/volume)Ordered By: Sole Daley on 07-20-2022 ALP [Catalytic activity/Vol] 71 U/L 32-92 [facility] Serum or plasma anion gap de terminationOrdered By: Sole Daley on 07-20-2022 Anion gap [Moles/Vol] 10.8 mmol/L 6.0-15.0 [facility] Serum or plasma aspartate am inotransferase measurement (enzymatic activity/volume)Ordered By: Sole Daley on 07-20-2022 AST [Catalytic activity/Vol] 21 U/L 10-42 [facility] Serum or plasma calcium yumiko urement (mass/volume)Ordered By: Sole Daley on 07-20-2022 Calcium [Mass/Vol] 9.2 mg/dL 8.2-10.2 [facility] Serum or plasma chloride sarah surement (moles/volume)Ordered By: Sole Daley on 07-20-2022 Chloride [Moles/Vol] 104 mmol/L 95-114 [facility] Serum or plasma glucose yumiko urement (mass/volume)Ordered By: Sole Daley on 07-20-2022 Glucose [Mass/Vol] 107 mg/dL 70-100 [facility] Comment on above: ADA recommended refe rence rangeRandom Glucose Reference Range is dependent on time and content of last meal. Glucose of more than 200 mg/dL in a nonstressed, ambulatory subject supports the diagnosis of Diabetes Mellitus. Serum or plasma high density lipoprotein (HDL) cholesterol measurementOrdered By: Sole Daley on 07-20-2022 Cholesterol in HDL [Mass/Vol] 50 mg/dL 29-71 [facility] Comment on above: HDL CHOL ATP-III CLA SSIFICATION Cardiovascular RiskHDL > or equal to 60 mg/dL LOWHDL < 40 mg/dL HIGH Serum or plasma potassium me asurement (moles/volume)Ordered By: Sole Daley on 07-20-2022 Potassium [Moles/Vol] 4.4 mmol/L 3.5-5.1 [facility] Serum or plasma sodium measu rement (moles/volume)Ordered By: Sole Daley on 07-20-2022 Sodium [Moles/Vol] 140 mmol/L 136-146 [facility] Serum or plasma total biliru bin measurement (mass/volume)Ordered By: Sole Daley on 07-20-2022 Bilirubin [Mass/Vol] 0.9 mg/dL 0.3-1.2 [facility] Serum or plasma total carbon dioxide measurement (moles/volume)Ordered By: Sole Daley on 07-20-2022 CO2 [Moles/Vol] 29.6 mmol/L 22.0-30.0 [facility] Serum or plasma total choles terol/high density lipoprotein (HDL) cholesterol mass ratOrdered By: Sole Daley on 07-20-2022 Cholesterol.total/Cho lesterol in HDL [Mass ratio] 3.6 {ratio} <5.0 [facility] Serum or plasma urea nitroge n measurement (mass/volume)Ordered By: Sole Daley on 07-20-2022 Urea nitrogen [Mass/Vol] 10 mg/dL 9-23 [facility] Triglyceride [Mass/volume] i n Serum or PlasmaOrdered By: Sole Daley on 07-20-2022 Triglyceride [Mass/Vol] 85 mg/dL 35-149 [facility] Comment on above: TRIG ATP III CLASSIF ICATIONTRIG less than 150 mg/dL NormalTRIG 150-199 mg/dL Borderline highTRIG 200-500 mg/dL High TRIG greater than 500 mg/dL Very highStandard traceable to the Center for Disease Conrtrol and Prevention (CDC) test method. ECG COMPLETEon 05-08-2022 Atrial Rate 56 BPM [facility] Calculated R Belle 60 degrees [facility] Calculated T [place] 45 degrees [facility] QRS Duration 96 ms [facility] QT Interval 424 ms [facility] QTC Calculation (Bazett) 409 ms [facility] Ventricular Rate 56 BPM [facility] SARS-CoV-2 (COVID-19) RNA NA A+probe Ql (Resp)on 04-08-2022 SARS-CoV-2 (COVID-19) RNA EMPERATRIZ+probe Ql (Unsp spec) Positive [employer] Other Vital Signs Date Time Vital Sign Value Performing Clinician Facility 12-23-2024 08:52-0400 Body mass index (BMI) [Ratio] 29.3 kg/m2 Lev Price DO Work Phone: [facility] 12-23-2024 08:52-0400 Body weight 90 kg Lev Price DO Work Phone: [facility] 12-23-2024 08:52-0400 Diastolic blood pressure 85 mm[Hg] Lev Price DO Work Phone: [facility] 12-23-2024 08:52-0400 Heart rate 61 /min Lve Price DO Work Phone: [facility] 12-23-2024 08:52-0400 SaO2% (BldA) [Mass fraction] 99 % Lev Price DO Work Phone: [facility] 12-23-2024 08:52-0400 Systolic blood pressure 138 mm[Hg] Lev Price DO Work Phone: [facility] 12-16-2024 08:45-0400 Body height 175.3 cm Patrick Hinson MD Work Phone: [facility] 12-16-2024 08:45-0400 Body mass index (BMI) [Ratio] 28.98 kg/m2 Patrick Hinson MD Work Phone: [facility] 12-16-2024 08:45-0400 Body weight 89 kg Patrick Hinson MD Work Phone: [facility] 12-16-2024 08:45-0400 Diastolic blood pressure 66 mm[Hg] Patrick Hinson MD Work Phone: [facility] 12-16-2024 08:45-0400 Heart rate 67 /min Patrick Hinson MD Work Phone: [facility] 12-16-2024 08:45-0400 SaO2% (BldA) [Mass fraction] 97 % Patrick Hinson MD Work Phone: [facility] Comment on above: RA 12-16-2024 08:45-0400 Systolic blood pressure 123 mm[Hg] Patrick Hinson MD Work Phone: [facility] 07-27-2024 08:57-0500 Body height 172.72 cm [facility] 07-27-2024 08:57-0500 Body mass index (BMI) [Ratio] 29.7 kg/m2 [facility] 07-27-2024 08:57-0500 Body temperature 97.3 [degF] [facility] 07-27-2024 08:57-0500 Body weight 88.9 kg [facility] 07-27-2024 08:57-0500 Diastolic blood pressure 72 mm[Hg] [facility] 07-27-2024 08:57-0500 Heart rate 56 /min [facility] 07-27-2024 08:57-0500 Respiratory rate 18 /min [facility] 07-27-2024 08:57-0500 SaO2% (BldA) [Mass fraction] 98 % [facility] 07-27-2024 08:57-0500 Systolic blood pressure 128 mm[Hg] [facility] 06-23-2024 15:09-0400 Diastolic blood pressure 76 mm[Hg] Isreal DAHL [facility] 06-23-2024 15:09-0400 Mean blood pressure 97 mm[Hg] Isreal DAHL [facility] 06-23-2024 15:09-0400 Systolic blood pressure 140 mm[Hg] Isreal DAHL [facility] 06-23-2024 15:03-0400 Blood Pressure Location Isreal DAHL [facility] 06-23-2024 15:03-0400 Diastolic blood pressure 59 mm[Hg] Isreal DAHL [facility] 06-23-2024 15:03-0400 Heart rate 68 /min Isreal DAHL [facility] 06-23-2024 15:03-0400 Systolic blood pressure 141 mm[Hg] Isreal DAHL [facility] 06-17-2024 09:34-0400 Body mass index (BMI) [Ratio] 28.65 kg/m2 Lev Price DO Work Phone: [facility] 06-17-2024 09:34-0400 Body weight 88 kg Lev Price DO Work Phone: [facility] 06-17-2024 09:34-0400 Diastolic blood pressure 86 mm[Hg] Lev Price DO Work Phone: [facility] 06-17-2024 09:34-0400 Heart rate 55 /min Lev Price DO Work Phone: [facility] 06-17-2024 09:34-0400 SaO2% (BldA) [Mass fraction] 99 % Lev Price DO Work Phone: [facility] 06-17-2024 09:34-0400 Systolic blood pressure 150 mm[Hg] Lev Price DO Work Phone: [facility] 06-08-2024 10:01-0400 Body mass index (BMI) [Ratio] 28.06 kg/m2 Patrick Hinson MD Work Phone: [facility] 06-08-2024 10:01-0400 Body weight 86.18 kg Patrick Hinson MD Work Phone: [facility] 06-08-2024 10:01-0400 Diastolic blood pressure 86 mm[Hg] Patrick Hinson MD Work Phone: [facility] 06-08-2024 10:01-0400 Heart rate 64 /min Patrick Hinson MD Work Phone: [facility] 06-08-2024 10:01-0400 SaO2% (BldA) [Mass fraction] 99 % Patrick Hinson MD Work Phone: [facility] 06-08-2024 10:01-0400 Systolic blood pressure 133 mm[Hg] Patrick Hinson MD Work Phone: [facility] 05-11-2024 15:14-0400 Body height 172.72 cm [facility] 05-11-2024 15:14-0400 Body mass index (BMI) [Ratio] 28.8 kg/m2 [facility] 05-11-2024 15:14-0400 Body temperature 98.1 [degF] [facility] 05-11-2024 15:14-0400 Body weight 86.18 kg [facility] 05-11-2024 15:14-0400 Diastolic blood pressure 92 mm[Hg] [facility] 05-11-2024 15:14-0400 Heart rate 78 /min [facility] 05-11-2024 15:14-0400 SaO2% (BldA) [Mass fraction] 98 % [facility] 05-11-2024 15:14-0400 Systolic blood pressure 138 mm[Hg] [facility] 09-16-2023 06:20-0500 Diastolic blood pressure 92 mm[Hg] Kaylinn Dokken [facility] 09-16-2023 06:20-0500 Heart rate 68 /min Kaylinn Dokken [facility] 09-16-2023 06:20-0500 Mean blood pressure 109 mm[Hg] Kaylinn Dokken [facility] 01-09-2024 06:20-0500 Respiratory rate 18 /min Kaylinn Dokken [facility] 09-16-2023 06:20-0500 SaO2% (BldA) [Mass fraction] 98 % Kaylinn Dokken [facility] 09-16-2023 06:20-0500 Systolic blood pressure 143 mm[Hg] Kaylinn Dokken [facility] 09-16-2023 05:55-0500 Diastolic blood pressure 91 mm[Hg] Kaylinn Dokken [facility] 09-16-2023 05:55-0500 Heart rate 57 /min Kaylinn Dokken [facility] 09-16-2023 05:55-0500 Mean blood pressure 108 mm[Hg] Kaylinn Dokken [facility] 09-16-2023 05:55-0500 Respiratory rate 16 /min Kaylinn Dokken [facility] 09-16-2023 05:55-0500 SaO2% (BldA) [Mass fraction] 98 % Kaylinn Dokken [facility] 09-16-2023 05:55-0500 Systolic blood pressure 143 mm[Hg] Kaylinn Dokken [facility] 09-16-2023 05:21-0500 Diastolic blood pressure 93 mm[Hg] Kaylinn Dokken [facility] 09-16-2023 05:21-0500 Heart rate 62 /min Kaylinn Dokken [facility] 09-16-2023 05:21-0500 Mean blood pressure 112 mm[Hg] Kaylinn Dokken [facility] 09-16-2023 05:21-0500 Respiratory rate 18 /min Skylar Wright [facility] 09-16-2023 05:21-0500 SaO2% (BldA) [Mass fraction] 97 % Skylar Wright [facility] 09-16-2023 05:21-0500 Systolic blood pressure 151 mm[Hg] Skylar Wright [facility] 09-16-2023 03:51-0500 Body temperature 97.52 [degF] Skylar Wright [facility] 09-16-2023 03:51-0500 Heart rate 66 /min Skylar Wright [facility] 07-23-2023 14:30-0500 Body height 172.72 cm Sole Edi Other [employer] Other 07-23-2023 14:30-0500 Body mass index (BMI) [Ratio] 28.43 kg/m2 Sole Edi Other [employer] Other 07-23-2023 14:30-0500 Body temperature 98.4 [degF] Sole Edi Other [employer] Other 07-23-2023 14:30-0500 Body weight 84.82 kg Sole Edi Other [employer] Other 07-23-2023 14:30-0500 Diastolic blood pressure 74 mm[Hg] Sole Dei Other [employer] Other 07-23-2023 14:30-0500 Respiratory rate 20 /min Sole Sosagles Other [facility] [employer] Other 07-23-2023 14:30-0500 SaO2% (BldA) [Mass fraction] 97 % Sole Edi Other [facility] [employer] Other 07-23-2023 14:30-0500 Systolic blood pressure 102 mm[Hg] Sole Sosagles Other [facility] [employer] Other 06-10-2023 09:57-0400 Blood Pressure Location Carlos Enrique [email or web address] [facility] 06-10-2023 09:57-0400 Body temperature 97.88 [degF] Carlos Enrique [email or web address] [facility] 06-10-2023 09:57-0400 Diastolic blood pressure 82 mm[Hg] Carlos Enrique [email or web address] [facility] 06-10-2023 09:57-0400 Heart rate 78 /min Carlos Enrique [email or web address] [facility] 06-10-2023 09:57-0400 Systolic blood pressure 124 mm[Hg] Carlos Enrique COOK [facility] 04-07-2023 10:21-0400 Blood Pressure Location Carlos Enrique COOK [facility] 04-07-2023 10:21-0400 Diastolic blood pressure 86 mm[Hg] Carlos Enrique COOK [facility] 04-07-2023 10:21-0400 Heart rate 61 /min Carlos Enrique COOK [facility] 04-07-2023 10:21-0400 Systolic blood pressure 128 mm[Hg] Carlos Enrique COOK [facility] 03-04-2023 07:40-0400 Blood Pressure Location Carlos Enrique COOK [facility] 03-04-2023 07:40-0400 Diastolic blood pressure 84 mm[Hg] Carlos Enrique COOK [facility] 03-04-2023 07:40-0400 Heart rate 91 /min Carlos Enrique COOK [facility] 03-04-2023 07:40-0400 Respiratory rate 16 /min Carlos Enrique COOK [facility] 03-04-2023 07:40-0400 Systolic blood pressure 136 mm[Hg] Carlos Enrique COOK [facility] 02-17-2023 09:50-0400 Blood Pressure Location Carlos Enrique COOK [facility] 02-17-2023 09:50-0400 Diastolic blood pressure 93 mm[Hg] Carlos Enrique COOK [facility] 02-17-2023 09:50-0400 Heart rate 54 /min Carlos Enrique COOK [facility] 02-17-2023 09:50-0400 Systolic blood pressure 151 mm[Hg] Carlos Enrique COOK [facility] 02-07-2023 08:42-0400 Body weight 87.09 kg Lev Price DO Work Phone: [facility] 02-07-2023 08:42-0400 Diastolic blood pressure 80 mm[Hg] Lev Price DO Work Phone: [facility] 02-07-2023 08:42-0400 Heart rate 59 /min Lev Price DO Work Phone: [facility] 02-07-2023 08:42-0400 SaO2% (BldA) [Mass fraction] 98 % Lev Price DO Work Phone: [facility] 02-07-2023 08:42-0400 Systolic blood pressure 142 mm[Hg] Lev Price DO Work Phone: [facility] 11-29-2022 08:31-0400 Diastolic blood pressure 93 mm[Hg] Lev Price DO Work Phone: [facility] 11-29-2022 08:31-0400 Systolic blood pressure 151 mm[Hg] Lev Price DO Work Phone: [facility] 11-29-2022 08:22-0400 Body height 175.3 cm Lev Price DO Work Phone: [facility] 11-29-2022 08:22-0400 Body weight 88 kg Lev Price DO Work Phone: [facility] 11-29-2022 08:22-0400 Heart rate 65 /min Lev Price DO Work Phone: [facility] 11-29-2022 08:22-0400 SaO2% (BldA) [Mass fraction] 98 % Lev Price DO Work Phone: [facility] 07-18-2022 15:45-0500 Body height 172.72 cm [employer] Other [employer] Other 07-18-2022 15:45-0500 Body mass index (BMI) [Ratio] 29.65 kg/m2 [employer] Other [employer] Other 07-18-2022 15:45-0500 Body temperature 98 [degF] Sole Edi Other [employer] Other 07-18-2022 15:45-0500 Body weight 88.45 kg Sole Edi Other [employer] Other 07-18-2022 15:45-0500 Diastolic blood pressure 80 mm[Hg] Sole Edi Other [employer] Other 07-18-2022 15:45-0500 Respiratory rate 20 /min Sole Edi Other [employer] Other 07-18-2022 15:45-0500 SaO2% (BldA) [Mass fraction] 98 % Sole Edi Other [employer] Other 07-18-2022 15:45-0500 Systolic blood pressure 112 mm[Hg] Sole Edi Other [employer] Other 05-07-2022 10:50-0400 Body height 175.3 cm Nabila Rich MD Work Phone: [facility] 05-07-2022 10:50-0400 Body weight 87.09 kg Nabila Rich MD Work Phone: [facility] 05-07-2022 10:50-0400 Diastolic blood pressure 88 mm[Hg] Nabila Rich MD Work Phone: [facility] 05-07-2022 10:50-0400 Heart rate 51 /min Nabila Rich MD Work Phone: [facility] 05-07-2022 10:50-0400 Systolic blood pressure 134 mm[Hg] Nabila Rich MD Work Phone: [facility] 04-08-2022 14:50-0400 Body height 172.72 cm Jeanette Longo Other [employer] Other 04-08-2022 14:50-0400 Body mass index (BMI) [Ratio] 28.43 kg/m2 Jeanette Longo Other [employer] Other 04-08-2022 14:50-0400 Body temperature 98.2 [degF] Jeanette Longo Other [employer] Other 04-08-2022 14:50-0400 Body weight 84.82 kg Jeanette Longo Other [employer] Other 04-08-2022 14:50-0400 Respiratory rate 20 /min Jeanette Longo Other [employer] Other 04-08-2022 14:50-0400 SaO2% (BldA) [Mass fraction] 96 % Jeanette Longo Other [employer] Other 03-13-2022 15:45-0400 Body height 172.72 cm [employer] Other [employer] Other 03-13-2022 15:45-0400 Body mass index (BMI) [Ratio] 29.49 kg/m2 [employer] Other [employer] Other 03-13-2022 15:45-0400 Body temperature 98.4 [degF] [employer] Other [employer] Other 03-13-2022 15:45-0400 Body weight 88 kg [employer] Other [employer] Other 03-13-2022 15:45-0400 Diastolic blood pressure 98 mm[Hg] Myrna Easterwood Other [employer] Other 03-13-2022 15:45-0400 Respiratory rate 20 /min Myrna [email or web address] Other [employer] Other 03-13-2022 15:45-0400 SaO2% (BldA) [Mass fraction] 97 % Myrna [employer] Other [employer] Other 03-13-2022 15:45-0400 Systolic blood pressure 144 mm[Hg] Myrna [email or web address] Other [employer] Other 06-04-2021 12:15-0400 Body height 172.72 cm Sole Edi Other [employer] Other 06-04-2021 12:15-0400 Body mass index (BMI) [Ratio] 29.65 kg/m2 Sole Edi Other [employer] Other 06-04-2021 12:15-0400 Body temperature 97.9 [degF] Sole Edi Other [employer] Other 06-04-2021 12:15-0400 Body weight 88.45 kg Sole Edi Other [employer] Other 06-04-2021 12:15-0400 Diastolic blood pressure 82 mm[Hg] Sole Edi Other [employer] Other 06-04-2021 12:15-0400 Respiratory rate 20 /min Sole Edi Other [employer] Other 06-04-2021 12:15-0400 SaO2% (BldA) [Mass fraction] 98 % Sole Daley Other [employer] Other 06-04-2021 12:15-0400 Systolic blood pressure 130 mm[Hg] Sole Daley Other [employer] Other Encounters Encounter Date Encounter Type Care Provider Facility Start: 03-02-2025 End: 03-02-2025 Bamboo flowsluther Ko DPM Work Phone: [facility] Start: 03-02-2025 End: 03-02-2025 [employer] Interactive[employer] Perfecto oK DPM Work Phone: [facility] Start: 03-02-2025 End: 03-02-2025 Office outpatient new 30 minutes Perfecto Ko DPM Work Phone: [facility] Comment on above: Onychomycosis (Prima ry Dx); Pain in toes of both feet; Valgus deformity of both great toes; Hammertoes of both feet Start: 03-02-2025 End: 03-02-2025 ambulatory PERFECTO KO Not Available Start: 02-13-2025 End: 02-14-2025 Refill Lev Price DO Work Phone: Cardiology Comment on above: Refill Request Start: 01-27-2025 End: 01-27-2025 ambulatory LEV PRICE Facility:[facility] Start: 01-09-2025 End: 01-10-2025 ambulatory Patrick Hinson MD Work Phone: Pulmonary Medicine Start: 01-09-2025 End: 01-10-2025 Patient encounter procedure Patrick Hinson MD Work Phone: Pulmonary Medicine Comment on above: Inhaler Start: 12-23-2024 End: 12-23-2024 Patient encounter procedure Lev Price DO Work Phone: Cardiology Comment on above: Paroxysmal atrial fi brillation (HCC) (Primary Dx); Primary hypertension; Mixed hyperlipidemia; Murmur, cardiac; Overweight (BMI 25.0-29.9) Start: 12-23-2024 End: 12-23-2024 ambulatory LEV PRICE Facility:[facility] Start: 12-16-2024 End: 12-16-2024 ambulatory PATRICK HINSON Pulmonary Lab Comment on above: Spirometry Start: 12-16-2024 End: 12-16-2024 Patient encounter procedure [facility] [place] Work Phone: Pulmonary Lab Comment on above: Asthma with chronic obstructive pulmonary disease (COPD) (HCC) (Primary Dx); Chronic obstructive pulmonary disease, unspecified COPD type (HCC); Seasonal allergic rhinitis, unspecified trigger Start: 12-07-2024 End: 12-07-2024 ambulatory Carlos Enrique LEWIS Facility:[facility] Start: 09-16-2024 End: 09-16-2024 Refill Patrick Hinson MD Work Phone: Pulmonary Medicine Comment on above: Refill Request Start: 09-14-2024 End: 09-14-2024 Patient encounter procedure Sole Daley DO Work Phone: [facility] Start: 09-14-2024 End: 09-14-2024 ambulatory Sole Daley DO Work Phone: [facility] Work Phone: Start: 07-29-2024 End: 07-29-2024 Patient encounter procedure Sole Edi DO Work Phone: [facility] Start: 07-29-2024 End: 07-29-2024 ambulatory Sole Daley Facility:[facility] Start: 07-27-2024 End: 07-27-2024 ambulatory [facility] Work Phone: Start: 07-27-2024 End: 07-27-2024 Patient encounter procedure [facility] [place] Work Phone: Start: 06-23-2024 End: 06-23-2024 ambulatory Isrealashlie DAHL Facility: [facility] Start: 06-23-2024 End: 06-23-2024 Patient encounter procedure Isreal Renee DAHL [facility] Start: 06-19-2024 End: 06-19-2024 ambulatory Isreal DAHL Facility:[facility] Start: 06-19-2024 End: 06-19-2024 Patient encounter procedure Isreal DAHL [facility] Start: 06-17-2024 End: 06-17-2024 ambulatory LEV JOHN Facility:[facility] Start: 06-17-2024 End: 06-17-2024 Patient encounter procedure Lev Price DO Work Phone: Cardiology Comment on above: Paroxysmal atrial fi brillation (HCC) (Primary Dx); Primary hypertension; Mixed hyperlipidemia; Overweight (BMI 25.0-29.9) Start: 06-12-2024 End: 06-16-2024 ambulatory Patrick Hinson MD Work Phone: Pulmonary Medicine Start: 06-12-2024 End: 06-16-2024 Patient encounter procedure Patrick Hinson MD Work Phone: Pulmonary Medicine Comment on above: Medication pricing Start: 06-08-2024 Non-patient / Non-visit [facility] Work Phone: Start: 06-08-2024 End: 06-08-2024 ambulatory PATRICK HINSON Pul[facility] Lab Comment on above: Spirometry Start: 06-08-2024 End: 06-08-2024 Patient encounter procedure [facility] [place] Work Phone: Pulmonary Lab Comment on above: Asthma with chronic obstructive pulmonary disease (COPD) (HCC) (Primary Dx); Shortness of breath; Former smoker; Lung nodules Start: 05-11-2024 End: 05-11-2024 ambulatory [facility] Work Phone: Start: 05-11-2024 End: 05-11-2024 Patient encounter procedure [facility] Work Phone: Start: 02-04-2024 End: 02-04-2024 ambulatory LEV PRICE Facility:[facility] Start: 02-02-2024 Refill Lev Price DO Work Phone: Cardiology Comment on above: Refill Request Start: 01-26-2024 ambulatory Lev Price DO Work Phone: Cardiology Comment on above: Blood work question Start: 12-31-2023 End: 12-31-2023 Patient encounter procedure DO Sole Edi Work Phone: [facility] Work Phone: Start: 12-31-2023 End: 12-31-2023 ambulatory DO Sole M. Edi Work Phone: [facility] Work Phone: Start: 11-26-2023 End: 11-26-2023 Patient encounter procedure Isreal DAHL [facility] Start: 11-16-2023 Refill Lev Price DO Work Phone: Cardiology Comment on above: Refill Request Start: 10-20-2023 Telephone encounter Sole Edi [facility] [place] Start: 10-20-2023 End: 10-20-2023 Patient encounter procedure DO Sole Edi Work Phone: [facility] Work Phone: Start: 10-20-2023 End: 10-20-2023 ambulatory DO Sole M. Edi Work Phone: [employer] Other Start: 09-26-2023 End: 09-26-2023 Patient encounter procedure DO Sole Edi Work Phone: [facility] Work Phone: Start: 09-26-2023 End: 09-26-2023 ambulatory DO Sole M. Edi Work Phone: [facility] Work Phone: Start: 09-24-2023 End: 09-24-2023 Patient encounter procedure DO Sole Edi Work Phone: [facility] Work Phone: Start: 09-24-2023 End: 09-24-2023 ambulatory DO Sole M. Edi Work Phone: [facility] Work Phone: Start: 09-16-2023 End: 09-16-2023 Emergency department patient visit Selenagi Marya Kyle [facility] Start: 08-11-2023 End: 08-11-2023 ambulatory DO Sole M. Edi Work Phone: [facility] Work Phone: Start: 08-11-2023 End: 08-11-2023 Patient encounter procedure DO Sole Edi Work Phone: [facility] Work Phone: Start: 07-23-2023 End: 07-23-2023 ambulatory Sole Edi Other [employer] Other Start: 07-23-2023 Patient encounter procedure Sole Edi [facility] Start: 07-23-2023 End: 07-23-2023 Patient encounter procedure DO Sole Edi Work Phone: [facility] [place] Work Phone: Start: 06-24-2023 End: 06-24-2023 ambulatory DO Sole M. Edi Work Phone: [facility] Work Phone: Start: 06-24-2023 End: 06-24-2023 Patient encounter procedure DO Sole Edi Work Phone: [facility] Work Phone: Start: 06-17-2023 End: 06-17-2023 ambulatory DO Sole M. Edi Work Phone: [facility] Work Phone: Start: 06-17-2023 End: 06-17-2023 Patient encounter procedure DO Sole Edi Work Phone: [facility] Work Phone: Start: 06-10-2023 End: 06-10-2023 Patient encounter procedure Carlos Enrique LEWIS [facility] Start: 04-07-2023 End: 04-07-2023 Patient encounter procedure Carlos Enrique LEWIS [facility] Start: 03-24-2023 End: 03-24-2023 Patient encounter procedure Carlos Enrique LEWIS [facility] Start: 03-04-2023 End: 03-04-2023 Patient encounter procedure Carlos Enrique LEWIS [facility] Start: 02-17-2023 End: 02-17-2023 Patient encounter procedure Carlos Enrique LEWIS [facility] Start: 02-07-2023 End: 02-07-2023 Patient encounter procedure Lev Price DO Work Phone: Cardiology Comment on above: Paroxysmal atrial fi brillation (HCC) (Primary Dx); Primary hypertension; Mixed hyperlipidemia; Overweight (BMI 25.0-29.9) Start: 01-13-2023 End: 01-13-2023 ambulatory Sole Edi Other [employer] Other Start: 01-13-2023 Telephone encounter Sole Edi [facility] Start: 12-23-2022 Telephone encounter Lev barton DO Work Phone: Cardiology Comment on above: Patient Update Start: 11-29-2022 End: 11-29-2022 Patient encounter procedure Lev Price DO Work Phone: Cardiology Comment on above: Paroxysmal atrial fi brillation (HCC) (Primary Dx); Elevated blood pressure reading without diagnosis of hypertension; Mixed hyperlipidemia; Overweight (BMI 25.0-29.9) Start: 07-20-2022 End: 07-20-2022 ambulatory DO Sole M. Edi Work Phone: [facility] Work Phone: Start: 07-20-2022 End: 07-20-2022 Patient encounter procedure DO Sole Edi Work Phone: [facility] Start: 07-18-2022 End: 07-18-2022 ambulatory Sole Edi Other [employer] Other Start: 07-18-2022 Patient encounter procedure Sole Edi [facility] Start: 07-15-2022 End: 07-15-2022 ambulatory Sole Edi Other [employer] Other Start: 07-15-2022 Telephone encounter Sole Edi [facility] Start: 07-08-2022 End: 07-08-2022 ambulatory Sole Edi Other [employer] Other Start: 07-08-2022 Telephone encounter Sole Edi [facility] Start: 05-07-2022 End: 05-14-2022 Patient encounter procedure Nabila Rich MD Work Phone: Cardiology Comment on above: PAF (paroxysmal atri al fibrillation) (HCC) (Primary Dx) Start: 04-08-2022 End: 04-08-2022 ambulatory Jeanetterachele Longo Other [employer] Other Start: 04-08-2022 Office outpatient vi sit 15 minutes Jeanette Longo [facility] Start: 04-04-2022 End: 04-04-2022 ambulatory Sole Edi Other [employer] Other Start: 04-04-2022 Telephone encounter Sole Edi [facility] Start: 03-20-2022 End: 03-20-2022 ambulatory Sole Edi Other [employer] Other Start: 03-20-2022 Telephone encounter Sole Edi [facility] Start: 03-13-2022 End: 03-13-2022 ambulatory Sole Edi Other [employer] Other Start: 03-13-2022 Office outpatient vi sit 15 minutes Myrna Link [facility] Start: 03-13-2022 Telephone encounter Sole Edi [facility] Start: 03-12-2022 End: 03-12-2022 ambulatory Sole Edi Other [employer] Other Start: 03-12-2022 Telephone encounter Sole Edi [facility] Start: 01-21-2022 End: 01-21-2022 ambulatory Sole Edi Other [employer] Other Start: 01-21-2022 Telephone encounter Sole Edi [facility] Start: 12-31-2021 End: 12-31-2021 ambulatory Sole Edi Other [employer] Other Start: 12-31-2021 Telephone encounter Sole Edi [facility] Start: 10-19-2021 ambulatory Madonna mae MD Work Phone: [facility] Start: 10-19-2021 Patient encounter procedure Madonna Smith MD Work Phone: Cardiology Comment on above: Virtual appointments Start: 07-23-2021 End: 07-23-2021 ambulatory Sole Edi Other [employer] Other Start: 07-23-2021 Telephone encounter Sole Edi [facility] Start: 07-02-2021 Telephone encounter Sole Edi [facility] Start: 06-04-2021 Office outpatient vi sit 25 minutes Sole Edi [facility] Start: 06-04-2021 Telephone encounter Sole Edi [facility] Procedures Date Procedure Procedure Detail Performing Clinician Start: 12-23-2024 Ecg routine ecg w/le ast 12 lds i&r only [facility] Provider Start: 12-16-2024 Nitric oxide gas determination Patrick Hinson MD Work Phone: Start: 06-17-2024 Ecg routine ecg w/le ast 12 lds i&r only [facility] Provider Start: 06-08-2024 Nitric oxide gas determination Uzair Pak MD Work Phone: Start: 06-08-2024 Brncdilat rspse spmt ry pre&post-brncdilat admn Uzair Pak MD Work Phone: Start: 05-11-2024 COVID Antigen (POC) Start: 05-11-2024 Quick Strep (POC) Start: 02-04-2024 Lipid 1996 panel - S shannon or Plasma Pulsanthosh Loco Work Phone: Start: 10-20-2023 Plain chest X-ray DO Se th Edi Work Phone: Start: 09-24-2023 Diagnostic radiograp hy of abdomen DO Sole Edi Work Phone: Start: 09-18-2023 Cystourethroscopy wi th dilation of urethral stricture Isreal DAHL Start: 08-07-2023 Extracorporeal shock wave lithotripsy of calculus of kidney Isreal DAHL Start: 06-24-2023 Intravenous pyelogram D O Sole Edi Work Phone: Start: 06-17-2023 Diagnostic radiograp hy of abdomen DO Sole Eid Work Phone: Start: 03-24-2023 Transurethral insert ion of prostatic urethral lift implant Carlos Enrique LEWIS Start: 03-04-2023 Cystoscopy Carlos Enrique RAMIRES Start: 11-29-2022 Ecg routine ecg w/le ast 12 lds i&r only [facility] Provider Start: 05-07-2022 Ecg routine ecg w/le ast 12 lds w/i&r [facility] Provider Start: 06-12-2021 Lipid 1996 panel - S shannon or Plasma Lev Price DO Work Phone: Start: 05-31-2021 Colonoscopy Nabila Rich MD Work Phone: Start: 05-31-2021 Colsc flx w/rmvl of tumor polyp lesion snare tq Carlos Enrique LEWIS Start: 06-03-2016 Colonoscopy Perfecto Stewart DPM Work Phone: Excision of cervical lymph node Carlos Enrique LEWIS left shoulder arthroscopy Gr jae LEWIS Repair of umbilical hernia G briseyda LEWIS Plan of Treatment Date Care Activity Detail Author Start: 02-03-2029 Lipid panel Lipid Screening [facility] Start: 2027 RSV Vaccine (1 - 1-d ose 75+ series) RSV Vaccine (1 - 1-dose 75+ series) [facility] Start: 06-12-2026 Lipid panel Lipid Screening [facility] Start: 06-12-2026 LIPID SCREEN LIPID SCREEN [facility] Start: 06-03-2026 Screening for malign ant neoplasm of colon [facility] Start: 12-16-2025 BP Controlled (<130/80) BP Controlle d (<130/80) [facility] Start: 08-23-2025 End: 08-23-2025 Patient encounter procedure 08/23/2025 8:30 AM EST Office Visit Pulmonary Medicine [address] [place] [address] [place] [address] [place] [address] Return in about 6 months (around 06/17/2025). Pulmonary Medicine Comment on above: Return in about 6 mo nths (around 06/17/2025). Start: 08-23-2025 End: 08-23-2025 ambulatory 08/23/2025 8:15 AM EST Procedure Pulmonary Lab [address] [place] [address] Asthma with chronic obstructive pulmonary disease (COPD) ([facility]) [J44.89] Pulmonary Lab Comment on above: Asthma with chronic obstructive pulmonary disease (COPD) (HCC) [J44.89] Start: 07-07-2025 End: 07-07-2025 Patient encounter procedure 07/07/2025 8:30 AM EDT Office Visit Cardiology [address] [place] [address] Lev Price, [address] [facility] [place] [address] 6 month follow up Cardiology Comment on above: 6 month follow up Start: 06-24-2025 End: 09-23-2025 Basic metabolic 2000 panel - Serum or Plasma BASIC METABOLIC PANEL Lab Routine Paroxysmal atrial fibrillation (HCC) Expected: 06/24/2025 (Approximate), Expires: 09/23/2025 [facility] Comment on above: Expected: 06/24/2025 (Approximate), Expires: 09/23/2025 Start: 06-24-2025 End: 09-23-2025 CBC panel - Blood by Automated count COMPLETE BLOOD COUNT Lab Routine Paroxysmal atrial fibrillation (HCC) Expected: 06/24/2025 (Approximate), Expires: 09/23/2025 [facility] Comment on above: Expected: 06/24/2025 (Approximate), Expires: 09/23/2025 Start: 06-24-2025 End: 09-23-2025 Lipid 1996 panel - Serum or Plasma LIPID PANEL, FASTING Lab Routine Mixed hyperlipidemia Expected: 06/24/2025 (Approximate), Expires: 09/23/2025 [facility] Comment on above: Expected: 06/24/2025 (Approximate), Expires: 09/23/2025 Start: 06-02-2025 End: 06-02-2025 Patient encounter procedure 06/02/2025 11:30 AM EDT Office Visit [facility] [address] [place] [id number] Perfecto Ko DPM [address] [place] [address] [facility] Start: 03-17-2025 Covid-19 Vaccine ( season) Covid-19 Vaccine ( season) [facility] Start: 03-02-2025 End: 03-02-2025 Patient encounter procedure 03/02/2025 1:30 PM EDT Office Visit [facility] [address] [place] [address] Perfecto Ko, DPM [address] [facility] [address] [place] [address] Arrived [facility] Comment on above: Arrived Start: 01-27-2025 End: 01-27-2025 Patient encounter procedure 01/27/2025 8:00 AM EDT Office Visit Cardiology [address] [place] [address] Herminia, [employer] [facility] [address] [place] [address] Paroxysmal atrial fibrillation (HCC) [I48.0]; Murmur, cardiac [R01.1] Cardiology Comment on above: Paroxysmal atrial fi brillation (HCC) [I48.0]; Murmur, cardiac [R01.1] Start: 12-23-2024 End: 12-23-2024 Patient encounter procedure 12/23/2024 9:00 AM EDT Office Visit Cardiology [address] [place] [address] Lev Price DO [address] [place] [address] Return in about 6 months (around 12/16/2024). Cardiology Comment on above: Return in about 6 mo nths (around 12/16/2024). Start: 12-16-2024 End: 12-16-2024 Patient encounter procedure 12/16/2024 8:30 AM EDT Office Visit Pulmonary Medicine [address] [place] [address] [place] [address] [place] [address] Return in about 6 months (around 12/07/2024). Pulmonary Medicine Comment on above: Return in about 6 mo nths (around 12/07/2024). Start: 12-16-2024 End: 12-16-2024 ambulatory 12/16/2024 8:15 AM EDT Procedure Pulmonary Lab [address] [facility] [place] [address] Asthma with chronic obstructive pulmonary disease (COPD) ([facility]) [J44.89] Pulmonary Lab Comment on above: Asthma with chronic obstructive pulmonary disease (COPD) (HCC) [J44.89] Start: 12-07-2024 End: 03-08-2025 Basic metabolic 2000 panel - Serum or Plasma BASIC METABOLIC PANEL Lab Routine Primary hypertension Expected: 12/07/2024 (Approximate), Expires: 03/08/2025 [facility] Comment on above: Expected: 12/07/2024 (Approximate), Expires: 03/08/2025 Start: 12-07-2024 End: 03-08-2025 CBC panel - Blood by Automated count COMPLETE BLOOD COUNT Lab Routine Primary hypertension Expected: 12/07/2024 (Approximate), Expires: 03/08/2025 [facility] Comment on above: Expected: 12/07/2024 (Approximate), Expires: 03/08/2025 Start: 12-07-2024 End: 03-08-2025 Lipid 1996 panel - Serum or Plasma LIPID PANEL BASIC Lab Routine Mixed hyperlipidemia Expected: 12/07/2024 (Approximate), Expires: 03/08/2025 [facility] Comment on above: Expected: 12/07/2024 (Approximate), Expires: 03/08/2025 Start: 09-08-2024 Advance Directive Discussion Advance Directive Discussion [facility] Start: 06-17-2024 End: 06-17-2024 Patient encounter procedure 06/17/2024 9:30 AM EDT Office [facility] [address] [facility] [place] [address] Lev Price DO [address] [facility] [place] [address] follow up after labs Cardiology Comment on above: follow up after labs Start: 06-12-2024 DIABETES SCREEN DIABETES SCREEN [facility] Start: 06-12-2024 Diabetes Screening Diabetes Screenjace castro [facility] Start: 06-08-2024 End: 09-07-2024 ALPHA 1 ANTITRYP PHEN/GENOTYPE [facility] Work Phone: Comment on above: Expected: 06/08/2024 , Expires: 09/07/2024 Start: 05-09-2024 Covid-19 Vaccine ( season) Covid-19 Vaccine () [facility] Start: 05-09-2024 Influenza vaccination Influenza Vacc ine (#1) [facility] Start: 02-04-2024 End: 02-04-2024 ambulatory 02/04/2024 8:15 AM EDT Results Only [facility] [address] [place] [address] [facility] Start: 02-03-2024 End: 05-04-2024 Lipid 1996 panel - Serum or Plasma LIPID PANEL BASIC Lab Routine Mixed hyperlipidemia Expected: 02/03/2024, Expires: 05/04/2024 [facility] Work Phone: Comment on above: Expected: 02/03/2024 , Expires: 05/04/2024 Start: 09-26-2023 [facility] Start: 09-08-2023 Advance Directive Discussion Advance Directive Discussion [facility] Start: 09-08-2023 Behavioral Health Screening Behavioral Health Screening [facility] Start: 09-08-2023 Depression Assessment Depression Ass essment [facility] Start: 08-09-2023 End: 10-09-2023 Lipid 1996 panel - Serum or Plasma LIPID PANEL BASIC Lab Routine Mixed hyperlipidemia Expected: 08/09/2023 (Approximate), Expires: 10/09/2023 [facility] Work Phone: Comment on above: Expected: 08/09/2023 (Approximate), Expires: 10/09/2023 Start: 05-09-2023 Covid-19 Vaccine ( season) Covid-19 Vaccine () [facility] Start: 05-09-2023 Covid-19 Vaccine () Covid-19 Vaccine () [facility] Start: 02-21-2023 End: 04-23-2023 Basic metabolic 2000 panel - Serum or Plasma BASIC METABOLIC PNL Lab Routine Primary hypertension Expected: 02/21/2023 (Approximate), Expires: 04/23/2023 [facility] Work Phone: Comment on above: Expected: 02/21/2023 (Approximate), Expires: 04/23/2023 Start: 11-29-2022 End: 01-29-2023 Lipid 1996 panel - Serum or Plasma LIPID PANEL BASIC Lab Routine Mixed hyperlipidemia Expected: 11/29/2022, Expires: 01/29/2023 [facility] Work Phone: Comment on above: Expected: 11/29/2022 , Expires: 01/29/2023 Start: 09-08-2022 ADVANCE DIRECTIVE DISCUSSION ADVANCE DIRECTIVE DISCUSSION [facility] Start: 09-08-2022 DEPRESSION ASSESSMENT DEPRESSION ASS ESSMENT [facility] Start: 05-31-2022 Colonoscopy COLONOSCOPY [facility] Start: 05-31-2022 COLORECTAL CANCER SCREENING COLORECTAL CANCER SCREENING [facility] Start: 05-31-2022 Screening for malign ant neoplasm of colon [facility] Start: 05-09-2022 Influenza vaccination INFLUENZA (#1) [facility] Start: 09-08-2021 ADVANCE DIRECTIVE DISCUSSION ADVANCE DIRECTIVE DISCUSSION [facility] Start: 05-09-2021 Influenza vaccination INFLUENZA (#1) [facility] Start: 02-19-2020 Urine microalbumin profile DTa P,Tdap,Td Vaccine (2 - Td or Tdap) [facility] Start: 12-04-2019 Pneumococcal Vaccine : 65+ (2 of 2 - PPSV23 or PCV20) Pneumococcal Vaccine: 65+ (2 of 2 - PPSV23 or PCV20) [facility] Start: 06-02-2018 DIABETES SCREEN DIABETES SCREEN [facility] Start: 2017 PNEUMOCOCCAL: 65+ (1 - PCV) PNEUMOCOCCAL: 65+ (1 - PCV) [facility] Start: 2017 PNEUMOVAX AGE 65 AND OVER WITH 5YR LOOKBACK (#1) PNEUMOVAX AGE 65 AND OVER WITH 5YR LOOKBACK (#1) [facility] Start: 2012 RSV Vaccine (1 - 1-d ose 60+ series) RSV Vaccine (1 - 1-dose 60+ series) [facility] Start: 2012 RSV Vaccine (1 - Ris k 60-74 years 1-dose series) RSV Vaccine (1 - Risk 60-74 years 1-dose series) [facility] Start: 2002 SHINGRIX VACCINE (1 of 2) SALINAS GRIX VACCINE (1 of 2) [facility] Start: 1997 COLOGUARD (FIT-DNA) COLOGUARD (FIT-D NA) [facility] Start: 1997 Colonoscopy COLONOSCOPY [facility] Start: 1997 COLORECTAL CANCER SCREENING COLORECTAL CANCER SCREENING [facility] Start: [address] COLONOGRAPHY [facility] Start: 1997 FECAL OCCULT BLOOD FECAL OCCULT BLOO D [facility] Start: 1997 Screening for malign ant neoplasm of colon [facility] Start: 1997 SIGMOIDOSCOPY SIGMOIDOSCOPY [facility] Start: 1987 LIPID SCREEN LIPID SCREEN [facility] Start: 1971 Urine microalbumin profile DTAP,TDAP ,TD (1 - Tdap) [facility] Start: 1970 Annual PCP Team Manager Process bharathi Disease Visit Annual PCP Team Chronic Disease Visit [facility] Start: 1970 Anxiety Screening Anxiety Screening [facility] Start: 1970 BP Controlled (<130/80) BP Controlle d (<130/80) [facility] Start: 1970 Depression Screening Depression Scre ening [facility] Start: 1970 HEPATITIS C SCREENING HEPATITIS C [facility] Start: 1970 Hepatitis C screening Hepatitis C [facility] Start: 1964 Adult depression scr eening assessment DEPRESSION SCREENING [facility] Start: 1957 COVID-19 VACCINE (1) COVID-19 VACCIN E (1) [facility] Start: 1952 ABDOMINAL AORTIC ANE URYSM SCREENING ABDOMINAL AORTIC ANEURYSM SCREENING [facility] Start: 1952 Abdominal aortic ane urysm screening Abdominal Aortic Aneurysm Screening [facility] Start: 1952 Screening for malign ant neoplasm of colon [facility] Calcium [Mass/time] in 24 hour Urine [facility] Calcium [Mass/volume ] in 24 hour Urine [facility] End: 11-30-2023 ECG COMPLETE ECG COMPLETE ECG Routine Paroxysmal atrial fibrillation (HCC) 1 Occurrences starting 11/29/2022 until 11/30/2023 [facility] Work Phone: Comment on above: 1 Occurrences starti ng 11/29/2022 until 11/30/2023 ECG COMPLETE ECG COMPLETE ECG 11/29/2022 8:24 AM EDT [facility] ECG COMPLETE [facility] Work Phone: Comment on above: Ordered: 06/17/2024 ECG COMPLETE [facility] Work Phone: Comment on above: Ordered: 12/23/2024 End: 12-23-2025 Echocardiography ECHO Cardiology Routine Paroxysmal atrial fibrillation (HCC) Murmur, cardiac 1 Occurrences starting 12/23/2024 until 12/23/2025 [facility] Comment on above: 1 Occurrences starti ng 12/23/2024 until 12/23/2025 Magnesium [Mass/time ] in 24 hour Urine [facility] Magnesium [Mass/volu me] in Urine [facility] End: 07-09-2025 NITRIC OXIDE, EXHALED NITRIC OXIDE, EXHALED PFT Routine Asthma with chronic obstructive pulmonary disease (COPD) (HCC) 1 Occurrences starting 06/08/2024 until 07/09/2025 [facility] Comment on above: 1 Occurrences starti ng 06/08/2024 until 07/09/2025 End: 01-15-2026 NITRIC OXIDE, EXHALED NITRIC OXIDE, EXHALED PFT Routine Asthma with chronic obstructive pulmonary disease (COPD) (HCC) 1 Occurrences starting 12/16/2024 until 01/15/2026 [facility] Work Phone: Comment on above: 1 Occurrences starti ng 12/16/2024 until 01/15/2026 OUTSIDE VENDOR CARDI AC OUTPATIENT EXTENDED RHYTHM RECORDING (WITHOUT TELEMETRY) OUTSIDE VENDOR CARDIAC OUTPATIENT EXTENDED RHYTHM RECORDING (WITHOUT TELEMETRY) Holter Routine Paroxysmal atrial fibrillation (HCC) Ordered: 11/29/2022 [facility] Work Phone: Comment on above: Ordered: 11/29/2022 OUTSIDE VENDOR CARDI AC OUTPATIENT EXTENDED RHYTHM RECORDING (WITHOUT TELEMETRY) OUTSIDE VENDOR CARDIAC OUTPATIENT EXTENDED RHYTHM RECORDING (WITHOUT TELEMETRY) Holter Routine Paroxysmal atrial fibrillation (HCC) Ordered: 12/23/2024 [facility] Comment on above: Ordered: 12/23/2024 Oxalate [Mass/time] in 24 hour Urine [facility] Phosphate [Mass/time ] in 24 hour Urine [facility] Phosphate [Mass/volu me] in Urine [facility] Urate [Mass/time] in 24 hour Urine [facility] Urate [Mass/volume] in Urine [facility] Immunizations Immunization Date Immunization Notes Care Provider Jose lake 08-25-2023 pneumococcal 20-na nt conjugate vaccine Isrealashlie DAHL [facility] 07-23-2023 influenza, injectabl e, quadrivalent, contains preservative Sole Edi Other [employer] Other 07-23-2023 influenza virus vaccine, unspecified formulation Isreal DAHL [facility] 07-23-2023 influenza, injectabl e, quadrivalent, preservative free DO Sole Edi Work Phone: [facility] 07-18-2022 influenza, injectabl e, quadrivalent, contains preservative Sole Edi Other [employer] Other 07-18-2022 influenza virus vaccine, unspecified formulation Carlos Enrique LEWIS [facility] 07-18-2022 influenza, injectabl e, quadrivalent, preservative free DO Sole Edi Work Phone: [facility] 05-30-2022 SARS-CoV-2 (COVID-19 ) [id number] Carlos Enrique LEWIS [facility] 01-02-2022 SARS-CoV-2 mRNA (lvhgaezapeb-ynwl-bamy ose) vaccine Carlos Enrique LEWIS [facility] 06-29-2021 Do not use COVID-19 Pfizer 2 dose Sole Edi Other [facility] 06-04-2021 influenza virus vaccine, unspecified formulation Carlos Enrique LEWIS [facility] 06-04-2021 influenza, injectabl e, quadrivalent, preservative free DO Sole Edi Work Phone: [facility] 06-04-2021 influenza, injectabl e, quadrivalent, contains preservative Sole Edi Other [employer] Other 11-30-2020 COVID-19 Pfizer Sole Edi Other [facility] 11-09-2020 COVID-19 Pfizer Sole Edi Other [facility] 06-13-2020 influenza virus vaccine, unspecified formulation Carlos Enrique LEWIS [facility] 06-13-2020 influenza, injectabl e, quadrivalent, preservative free DO Sole Edi Work Phone: [facility] 06-13-2020 influenza, injectabl e, quadrivalent, contains preservative Sole Edi Other [employer] Other 07-05-2019 influenza, injectabl e, quadrivalent, contains preservative Sole Edi Other [employer] Other 07-05-2019 influenza virus vaccine, unspecified formulation Carlos Enrique LEWIS [facility] 07-05-2019 influenza, injectabl e, quadrivalent, preservative free DO Sole Edi Work Phone: [facility] 05-26-2018 influenza virus vaccine, unspecified formulation Carlos Enrique LEWIS [facility] 05-26-2018 influenza, injectabl e, quadrivalent, preservative free DO Sole Edi Work Phone: [facility] 05-26-2018 influenza, injectabl e, quadrivalent, contains preservative Sole Edi Other [facility] Other 06-24-2017 influenza, injectabl e, quadrivalent, contains preservative Sole Edi Other [facility] Other 06-24-2017 influenza virus vaccine, unspecified formulation Carlos Enrique LEWIS [facility] 06-24-2017 influenza, injectabl e, quadrivalent, preservative free DO Sole Edi Work Phone: [facility] 05-09-2017 influenza virus vaccine, unspecified formulation Carlos Enrique LEWIS [facility] 06-20-2016 influenza virus vaccine, unspecified formulation Carlos Enrique LEWIS [facility] 06-02-2015 influenza virus vaccine, unspecified formulation Carlos Enrique LEWIS [facility] 06-02-2015 influenza, injectabl e, quadrivalent, preservative free Madonna Smith MD Work Phone: [facility] 08-20-2014 zoster vaccine, live Carlos Enrique LEWIS [facility] 02-18-2010 tetanus toxoid, reduced diphtheria toxoid, and acellular pertussis vaccine, adsorbed Carlos Enrique LEWIS [facility] Payers Date Payer Category Payer Self-pay [id number] 2021 Private Health Insurance [id number] 2021 Unknown [employer] [facility] MEDIC[facility] SUPPLEMENT [id number] 2021-Present [phone] [address] [place] [address] Indemnity [id number] 2021 Unknown [id number] 2021 Unknown [id number] 2017 Medicare [id number] 2017 Medicare [id number] 2014 Unknown MMO MMO TRADITIO NAL [id number] 2014-Present [phone] [address] [place] [address] Indemnity [id number] 1952 Unknown [id number] 1952 Unknown [id number] 727 1952 Unknown [id number] 727 1952 Unknown [id number] [id number] Unknown [id number] Unknown [facility] Health Claims [id number] Unknown [id number] Unknown [id number] 531 Unknown [id number] 531 Unknown [id number] 531 Unknown [id number] Unknown [id number] Social History Date Type Detail Facility Start: 03-13-2015 End: 06-08-2024 Tobacco smoking status NHIS Ex-smoker [facility] Start: 09-08-1964 End: 09-08-1989 History of tobacco use Current smoker [facility] Start: 09-08-1964 End: 09-08-1989 History of tobacco use Cigarette Smoker [facility] Start: 03-13-2015 End: 02-07-2023 Cigarettes smoked current (pack per day) - Reported 1 [facility] Start: 03-13-2015 End: 06-08-2024 Tobacco use and exposure Smokeless tobacco non-user [facility] Start: 04-06-2015 End: 12-23-2024 Alcohol intake Current non-drinker of alcohol (finding) [facility] Start: 1950 Sex Assigned At Not on file [facility] Start: 02-07-2023 End: 08-14-2023 Sex Assigned At [facility] Start: 1950 Sex Assigned At Male [facility] Start: 06-10-2023 End: 03-20-2024 Tobacco smoking status Never [facility] Start: 07-27-2024 End: 09-15-2024 Sex Male (finding) [facility] Tobacco smoking stat NHIS Tobacco smoking consumption unknown [facility] Functional Status Date Assessment Result Facility 06-23-2024 Functional Status N/A [facility] 09-16-2023 Functional Status N/A [facility] 06-10-2023 Functional Status N/A [facility] 04-07-2023 Functional Status N/A [facility] 03-24-2023 Functional Status N/A [facility] 03-04-2023 Functional Status N/A [facility] 02-17-2023 Functional Status N/A [facility] 06-03-2015 Are you deaf, or do you have serious difficulty hearing No 06/03/2015 9:45 AM Stanislaw Rodriguez RN [facility] 06-03-2015 Are you blind, or do you have serious difficulty seeing, even when wearing glasses No 06/03/2015 9:45 AM Stanislaw Rodriguez, REJI No [facility] 06-03-2015 Do you have serious difficulty walking or climbing stairs No 06/03/2015 9:45 AM Stanislaw Rodriguez, REJI [facility] 06-03-2015 Do you have difficul ty dressing or bathing No 06/03/2015 9:45 AM Stanislaw Rodriguez, REJI No [facility] 06-03-2015 Because of a physica l, mental, or emotional condition, do you have difficulty doing errands alone such as visiting a physician's office or shopping No 06/03/2015 9:45 AM Stanislaw Rodriguez RN No [facility] Mental Status Date Assessment Result Facility 06-03-2015 Because of a physica l, mental, or emotional condition, do you have serious difficulty concentrating, remembering, or making decisions No 06/03/2015 9:45 AM Stanislaw Rodriguez RN No [facility] Clinical Notes 06-04-2021 to 03-02-2025 Perfecto Ko, AKI - 03/02/2025 1:30 PM EDTTelephone Encounter - Anuradha Dave APRN.WAGE ANALYST - 02/14/2025 1:14 PM EDTTelephone Encounter - Anuradha Dave APRN.WAGE ANALYST - 02/14/2025 1:14 PM EDT Note Date & Type Note Facility 03-02-2025 History of Presen t illness Narrative [facility] V[facility] CC: Painful Fungal toenails, Hammertoe, Bunion HPI: This is a 74 y.o. male with PMH indicated below who presents for fungal nails. Patient states toenails are thickened and discolored. Patient admits to pain in shoegear. Patient is unable to cut them. Patient admits to use of OTC antifungal medications in the past without improvement. States he also has a bunion with an over riding 2nd digit. Relates no significant pain with this but states they do rub in his shoe gear. Denies open wound or callus formation. States he has tried taping the digit in the past to neutral position but states this is challenging for him. States he is very active and does walk multiple times per week for exercise. Denies any other pedal complaints. PCP: Sole Daley MD 07/27/24 No past medical history on file. Current Outpatient Medications Medication Sig Dispense Refill ASPIRIN 81 PO Take 81 mg by mouth Daily atorvastatin (Lipitor) 20 MG tablet Atorvastatin Calcium budesonide-formoterol (Symbicort) 160-4.5 MCG/ACT inhaler INHALE 2 PUFFS BY MOUTH INTO THE LUNGS DIRECTED TWO TIMES A DAY Fluticasone-Salmeterol 250-50 MCG/ACT aerosol powder INHALE 1 PUFF INSTRUCTED TWO TIMES A DAY. levothyroxine (Synthroid, Levoxyl) 75 MCG tablet losartan (Cozaar) 25 MG tablet Take 25 mg by mouth in the morning. Methylcellulose, Laxative, 500 MG tablet Take by mouth every 12 (twelve) hours Multiple Vitamins-Minerals (Centrum Adult 50+ MultiGummies) chewable tablet Centrum kpvpmpge-ityruuvji-sxpTGMVYhrvw e (Polydex) [id number] ointment ophthalmic ointment rosuvastatin (Crestor) 20 MG tablet rosuvastatin (Crestor) 40 MG tablet Take 40 mg by mouth at bedtime No current facility-administered medications for this visit. No Known Allergies No past surgical history on file. No family history on file. Review of Systems: GENERAL: No weight loss, malaise or fevers. HEENT: Negative for frequent or significant headaches, vision changes, nose bleeds RESPIRATORY: Negative for cough, wheezing or shortness of breath. CARDIOVASCULAR: Negative for chest pain, leg swelling or palpitations. GI: Negative for abdominal discomfort, nausea, vomiting MUSCULOSKELETAL: +B/L Foot Pain SKIN: +Thick Nails NEURO: Denies numbess, tingling or burning in feet Physical Exam: There were no vitals taken for this visit. On General Observation: Patient is a pleasant, cooperative, well developed 74 y.o. adult male. The patient is alert and oriented to time, place and person. Patient has normal affect and mood. Vascular: DP is palpable, PT is non palpable B/L. CFT less than 3 seconds to all digits bilateral. Skin temperature is warm to warm from proximal to distal bilateral. Hair growth is not noted. No edema noted. No varicosities noted. Neuro: Light touch intact bilateral. Dermatological: Skin appears thin and shiny. Toenails 1,2,3,4,5 bilateral are discolored, elongated, thickened with subungual debris. Webspaces 1-4 are clean, dry, intact bilateral. No rashes, subcutaneous nodules, or open lesions noted. Hyperkeratotic tissue is not noted B/L. Musculoskeletal/Orthopaedic: General foot morphology: Rectus. +4/5 muscle strength Dorsiflexion, Plantarflexion, Inversion, Eversion B/L. ROM of the 1st MTPJ is limited without pain or crepitus bilateral. ROM of the MTJ/STJ is full without pain or crepitus b/l. Ankle joint ROM is decreased in dorsiflexion B/L. HAV noted B/L. No pain with ROM of 1st MTPJ with mild crepitus. Hammertoes2-5 noted. Over riding 2nd digit B/L which is partially reducible. Pain to nails 1-5 B/L. Assessment: Encounter Diagnoses Name Primary? Onychomycosis Yes Pain in toes of both feet Valgus deformity of both great toes Hammertoes of both feet Plan: A comprehensive history and physical examination were preformed. The patient was educated on clinical and radiographic findings, diagnosis and treatment plans. Patient state that he understands all that has been explained and all questions were answered to his apparent satisfaction. Patient seen and evaluated In regards to his hammertoe we discussed shoe gear with wide toe box and soft uppers. Avoid constrictive shoe gear. We discussed use of toe sleeve and spacer which was fit and dispensed today with instructions for use. Nails 1-5 B/L were debrided in length and thickness by manual and mechanical means. Advised patient on continued proper diabetic foot care including daily monitoring of their feet for any new complaints or concerns that may arise. Discussed importance of tight blood sugar control to prevent future complications. RTC: 9-12 weeks or as needed if problems arise. Perfecto Ko DPM documented in this encounter [facility] 02-14-2025 Telephone encounter Note The following approved medication requests have been transmitted electronically. Requested Prescriptions Signed Prescriptions Disp Refills losartan (COZAAR) 25 mg tablet 90 tablet 2 Sig: TAKE 1 TABLET BY MOUTH DAILY Authorizing Provider: LEV PRICE Ordering User: ANURADHA DAVE APRN.CNP [facility] Work Phone: 02-14-2025 Miscellaneous Notes The following approved medication requests have been transmitted electronically. Requested Prescriptions Signed Prescriptions Disp Refills losartan (COZAAR) 25 mg tablet 90 tablet 2 Sig: TAKE 1 TABLET BY MOUTH DAILY Authorizing Provider: LEV PRICE Ordering User: ANURADHA DAVE APRN.CNP Last appt: 12/23/2024 Next appt: 07/07/2025 Pharmacy requesting below: Requested Prescriptions Pending Prescriptions Disp Refills losartan (COZAAR) 25 mg tablet [Pharmacy Med Name: LOSARTAN POTASSIUM 25 MG TAB] 90 tablet 3 Sig: TAKE 1 TABLET BY MOUTH DAILY documented in this encounter [facility] 02-14-2025 Telephone encounter Note Last appt: 12/23/2024 Next appt: 07/07/2025 Pharmacy requesting below: Requested Prescriptions Pending Prescriptions Disp Refills losartan (COZAAR) 25 mg tablet [Pharmacy Med Name: LOSARTAN POTASSIUM 25 MG TAB] 90 tablet 3 Sig: TAKE 1 TABLET BY MOUTH DAILY [facility] 12-23-2024 Note HNO ID: [id number] Author: ADARSH WREN MA Service: ? Author Type: Ampoule Filler And Sealer Type: Progress Notes Filed: 12/23/2024 10:04 Note Text: EVENT MONITOR DISPOSABLE PATCH INSTRUCTIONS Patient Name: Montse Malhotra [facility] Number: [id number] Skin prepped and cleansed with alcohol Patch secured to prepped area Monitor Activated Serial #: [id number] Patient Instructed: Prescribed order timeframe Bathing guidelines Usage of event button and diary documentation Return of monitor at the end of prescribed order Call with problems [phone] or [phone]. [phone] Patient expresses a good understanding of instructions Adarsh Wren MA [facility] 12-23-2024 History of Presen t illness Narrative EVENT MONITOR DISPOSABLE PATCH INSTRUCTIONS Patient Name: Montse Malhotra [facility] Number: [id number] Skin prepped and cleansed with alcohol Patch secured to prepped area Monitor Activated Serial #: [id number] Patient Instructed: Prescribed order timeframe Bathing guidelines Usage of event button and diary documentation Return of monitor at the end of prescribed order Call with problems [phone] or [phone]. [phone] Patient expresses a good understanding of instructions Adarsh Wren MA Images from the original note were not included. [facility] SECTION OF REGIONAL CARDIOLOGY OUTPATIENT VISIT DATE December 23, 2024 OUTPATIENT VISIT TYPE ESTABLISHED PRIMARY CARE PHYSICIAN: Sole Daley [address] [place] [address] [address] [place] [address] CHIEF COMPLAINT: Arrhythmia HISTORY OF PRESENT ILLNESS: Mr. Martinez is a 74 year old male with a past medical history of atrial fibrillation status post PVI, HLD, hypothyroid. I saw him previously on 06/17/24, per that note: ...he had some shortness of breath which he attributes to asthma/COPD. He is supposed to obtain an inhaler yet, the mendiola was expensive. He denies having any: chest pain, palpitations, orthopnea, LE edema, presyncope/syncope, N/V, bleeding, or other significant symptoms. Today, The patient reports feeling pretty good overall, with improvement in his voice and general well-being after switching from a powder inhaler to a mist inhaler about a week ago. He experiences mild dyspnea, which he attributes to a pulmonary issue, and notes that his walking distance has increased since the inhaler change. He denies any palpitations or sensations of atrial fibrillation recurrence. He reports occasional mild leg cramps at night while lying in bed, which resolve easily. He denies any significant discomfort. He monitors his blood pressure at home using a wrist cuff, with recent readings around 126/66 mmHg. He notes that his blood pressure is often higher during clinic visits. He is eating vegetables daily. He consumes about two cups of half-caffeinated coffee daily and adds sugar. He denies alcohol, tobacco, and marijuana use, noting he has abstained for 36 years. He walks three times a week and engages in yard work. He tries to eat vegetables daily. He attempts to walk 2-3 miles 3x a week. His LDL cholesterol was 94 mg/dL in 01/2024. He is currently taking losartan 25 mg daily. Family, Mother had an enlarged heart. Brother had an MO when he was 72 years of age. 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 IMPRESSION: Encounter Diagnosis ICD-10-CM 1. Paroxysmal atrial fibrillation (HCC) I48.0 ECG COMPLETE OUTSIDE VENDOR CARDIAC OUTPATIENT EXTENDED RHYTHM RECORDING (WITHOUT TELEMETRY) BASIC METABOLIC PANEL COMPLETE BLOOD COUNT ECHO perflutren lipid microspheres 1.3 mL in NaCl (PF) 0.9% 10 mL injection (DEFINITY) sodium chloride 0.9 % (flush) 10 mL (BD POSIFLUSH) 2. Primary hypertension I10 3. Mixed hyperlipidemia E78.2 LIPID PANEL, FASTING 4. Murmur, cardiac R01.1 ECHO perflutren lipid microspheres 1.3 mL in NaCl (PF) 0.9% 10 mL injection (DEFINITY) sodium chloride 0.9 % (flush) 10 mL (BD POSIFLUSH) 5. Overweight (BMI 25.0-29.9) E66.3 PLAN AND RECOMMENDATIONS: 1. Paroxysmal atrial fibrillation (HCC) (I48.0) Hx of PVI in 2014. No current symptoms of palpitations or arrhythmia. EKG shows normal sinus rhythm with bradycardia. Prophylactic aspirin presently until he has any recurrence of AF. - Ordered Zio patch monitor for 3 days to detect any episodes of AFib. - If AFib is detected, patient to follow up with Dr. Mike for further evaluation and potential ablation. 2. Primary hypertension (I10) Goal BP less than 130/80 mmHg. Blood pressure reading today is 136/82 mmHg. Currently on losartan 25 mg daily, which is a reduced dose from the previous 50 mg daily. - Continue losartan 25 mg daily. - Monitor blood pressure at home daily for 2 weeks, ensuring measurements are taken on bare skin. - Report average systolic blood pressure; if consistently above 130 mmHg, consider increasing losartan back to 50 mg daily. 3. Mixed hyperlipidemia (E78.2) LDL cholesterol was 94 mg/dL in January 2024; target LDL is less than 70 mg/dL. - Ordered lipid panel; patient advised to perform fasting for 12 hours prior to the test for optimal results. - If muscle cramping worsens may need to consider changing statin medication. - Patient to schedule and complete the lab work at any [facility] location. 4. Murmur, cardiac (R01.1) Audible murmur on auscultation; no recent echocardiogram on record. - Ordered echocardiogram to evaluate the murmur further. - Patient to schedule the echocardiogram at the clinic. 5. Overweight (BMI 25.0-29.9) (E66.3) Maintains a healthy diet and exercises by walking three times a week. PHYSICAL EXAMINATION: BP 138/85 Pulse 61 Wt 90 kg (198 lb 6.6 oz) SpO2 99% BMI 29.30 kg/m General: No apparent distress HEENT: normocephalic, EOMI, no JVD, no carotid bruit Heart: regular rhythm, no significant murmur Lungs: clear to auscultation Abdomen: bowel sounds present Extremities: no edema Musculoskeletal: chest wall nontender Neurological: alert and oriented Psychiatric: appropriate and cooperative Skin: no rash, cellulitis or lesions appreciated CARDIOVASCULAR MEDICINE TESTING: I have personally reviewed ECG and outside facility laboratory results ECG-12/23/24 Sinus bradycardia 58 bpm, otherwise normal ECG Latest Reference Range & Units 02/04/24 08:14 Cholesterol, Total <200 mg/dL 170 Triglyceride <150 mg/dL 97 Fasting Time hrs 12 HDL Cholesterol >39 mg/dL 57 LDL Cholesterol <100 mg/dL 94 VLDL Cholesterol <30 mg/dL 19 TC:HDL Ratio <5.10 2.98 LDL:HDL Ratio <2.54 1.65 Last EKG Result Conclusion ECG COMPLETE Collected: 12/23/2024 8:53 AM (Preliminary result) Impression: SINUS BRADYCARDIA OTHERWISE NORMAL ECG PAST MEDICAL HISTORY Diagnosis Date Atrial fibrillation (HCC) 2008 Hypercholesterolaemia Hypothyroidism Osteoarthritis Other disorders of ear(388.8) bilat hearing aids PAST SURGICAL HISTORY Procedure Laterality Date PAST SURGICAL HISTORY OF Bilateral 2009 shoulders PAST SURGICAL HISTORY OF facial reconstruction REPAIR UMBILICAL HERNIA Social History Tobacco Use Smoking status: Former Current packs/day: 0.00 Average packs/day: 1 pack/day for 25.0 years (25.0 ttl pk-yrs) Types: Cigarettes Start date: 09/08/1964 Quit date: 09/08/1989 Years since quittin.3 Smokeless tobacco: Never Substance Use Topics Alcohol use: No Drug use: No FAMILY HISTORY Problem Relation Age of Onset Heart Mother CAD/pacemaker Cancer Father pancreatic other (a fib [Other]) Brother ALLERGIES Allergen Reactions Propafenone Other: See Comments Not effective (pill in the pocket) Sotalol Other: See Comments Dizzeness CURRENT MEDICATIONS: budesonide-formoterol (SYMBICORT) 160-4.5 mcg/actuation inhaler Inhale 2 puffs as instructed two times a day. fluticasone-salmeterol (ADVAIR, WIXELA) 250-50 mcg/dose inhaler Inhale 1 Puff as instructed two times a day. rosuvastatin (CRESTOR) 40 mg tablet Take 1 tablet by mouth daily at bedtime. losartan (COZAAR) 25 mg tablet take 1 tablet by mouth daily Methylcellulose, Laxative, (FIBER THERAPY, M-CELLULOSE,) 500 mg tab Take by mouth q 12 HR. SAW PALMETTO ORAL Take by mouth twice daily. Take one tab po bid levothyroxine (SYNTHROID) 25 mcg tablet Take 25 mcg by mouth once daily. MULTIVITS,CA,MIN/IRON/FA/LYCOP (CENTRUM MEN ORAL) Take 1 tablet by mouth once daily. aspirin, enteric coated (ASPIRIN, ENTERIC COATED) 81 mg EC tablet Take 81 mg by mouth once daily. cholecalciferol, vitamin D3, 350 mcg (14,000 unit) cap Take by mouth. documented in this encounter [facility] 12-23-2024 Note HNO ID: [id number] Author: LEV PRICE DO Service: ? Author Type: Physician Type: Progress Notes Filed: 12/23/2024 10:04 Note Text: [facility] SECTION OF REGIONAL CARDIOLOGY OUTPATIENT VISIT DATE December 23, 2024 OUTPATIENT VISIT TYPE ESTABLISHED PRIMARY CARE PHYSICIAN: Sole Daley [address] [place] [address] [address] [place] [address] CHIEF COMPLAINT: Arrhythmia HISTORY OF PRESENT ILLNESS: Mr. Martinez is a 74 year old male with a past medical history of atrial fibrillation status post PVI, HLD, hypothyroid. I saw him previously on 06/17/24, per that note: ...he had some shortness of breath which he attributes to asthma/COPD. He is supposed to obtain an inhaler yet, the mendiola was expensive. He denies having any: chest pain, palpitations, orthopnea, LE edema, presyncope/syncope, N/V, bleeding, or other significant symptoms. Today, The patient reports feeling pretty good overall, with improvement in his voice and general well-being after switching from a powder inhaler to a mist inhaler about a week ago. He experiences mild dyspnea, which he attributes to a pulmonary issue, and notes that his walking distance has increased since the inhaler change. He denies any palpitations or sensations of atrial fibrillation recurrence. He reports occasional mild leg cramps at night while lying in bed, which resolve easily. He denies any significant discomfort. He monitors his blood pressure at home using a wrist cuff, with recent readings around 126/66 mmHg. He notes that his blood pressure is often higher during clinic visits. He is eating vegetables daily. He consumes about two cups of half-caffeinated coffee daily and adds sugar. He denies alcohol, tobacco, and marijuana use, noting he has abstained for 36 years. He walks three times a week and engages in yard work. He tries to eat vegetables daily. He attempts to walk 2-3 miles 3x a week. His LDL cholesterol was 94 mg/dL in 01/2024. He is currently taking losartan 25 mg daily. Family, Mother had an enlarged heart. Brother had an MO when he was 74 years of age. 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 IMPRESSION: Encounter Diagnosis ICD-10-CM 1. Paroxysmal atrial fibrillation (HCC) I48.0 ECG COMPLETE OUTSIDE VENDOR CARDIAC OUTPATIENT EXTENDED RHYTHM RECORDING (WITHOUT TELEMETRY) BASIC METABOLIC PANEL COMPLETE BLOOD COUNT ECHO perflutren lipid microspheres 1.3 mL in NaCl (PF) 0.9% 10 mL injection (DEFINITY) sodium chloride 0.9 % (flush) 10 mL (BD POSIFLUSH) 2. Primary hypertension I10 3. Mixed hyperlipidemia E78.2 LIPID PANEL, FASTING 4. Murmur, cardiac R01.1 ECHO perflutren lipid microspheres 1.3 mL in NaCl (PF) 0.9% 10 mL injection (DEFINITY) sodium chloride 0.9 % (flush) 10 mL (BD POSIFLUSH) 5. Overweight (BMI 25.0-29.9) E66.3 PLAN AND RECOMMENDATIONS: 1. Paroxysmal atrial fibrillation (HCC) (I48.0) Hx of PVI in 2014. No current symptoms of palpitations or arrhythmia. EKG shows normal sinus rhythm with bradycardia. Prophylactic aspirin presently until he has any recurrence of AF. - Ordered Zio patch monitor for 3 days to detect any episodes of AFib. - If AFib is detected, patient to follow up with Dr. Mike for further evaluation and potential ablation. 2. Primary hypertension (I10) Goal BP less than 130/80 mmHg. Blood pressure reading today is 136/82 mmHg. Currently on losartan 25 mg daily, which is a reduced dose from the previous 50 mg daily. - Continue losartan 25 mg daily. - Monitor blood pressure at home daily for 2 weeks, ensuring measurements are taken on bare skin. - Report average systolic blood pressure; if consistently above 130 mmHg, consider increasing losartan back to 50 mg daily. 3. Mixed hyperlipidemia (E78.2) LDL cholesterol was 94 mg/dL in January 2024; target LDL is less than 70 mg/dL. - Ordered lipid panel; patient advised to perform fasting for 12 hours prior to the test for optimal results. - If muscle cramping worsens may need to consider changing statin medication. - Patient to schedule and complete the lab work at any [facility] location. 4. Murmur, cardiac (R01.1) Audible murmur on auscultation; no recent echocardiogram on record. - Ordered echocardiogram to evaluate the murmur further. - Patient to schedule the echocardiogram at the clinic. 5. Overweight (BMI 25.0-29.9) (E66.3) Maintains a healthy diet and exercises by walking three times a week. PHYSICAL EXAMINATION: BP 138/85 Pulse 61 Wt 90 kg (198 lb 6.6 oz) SpO2 99% BMI 29.30 kg/m? General: No apparent distress HEENT: normocephalic, EOMI, no JVD, no carotid bruit Heart: regular rhythm, no significant murmur Lungs: clear to auscultation Abdomen: bowel sounds present Extremities: no edema Musculoskeletal: chest wall nontender Neurological: alert and oriented Psychiatric: appropriate and richard (more content not included)... [facility] 12-23-2024 Note HNO ID: [id number] Author: PITO CRESPO MD Service: ? Author Type: Physician Type: Procedures Filed: 01/06/2025 09:03 Note Text: Patient Name: Montse Martinez : 1950 Ordering Provider: Lev Price Indication: I48.0 Paroxysmal atrial fibrillation Type of Monitor: Extended Monitoring-Zio Patch Enrollment Dates: 12/23/2024-12/26/2024 IRHYTHM FINDINGS: Patient had a min HR of 45 bpm, max HR of 150 bpm, and avg HR of 61 bpm. Predominant underlying rhythm was Sinus Rhythm. 2 Supraventricular Tachycardia runs occurred, the run with the fastest interval lasting 7 beats with a max rate of 150 bpm, the longest lasting 8 beats with an avg rate of 139 bpm. Isolated SVEs were rare (<1.0%), SVE Couplets were rare (<1.0%), and SVE Triplets were rare (<1.0%). Isolated VEs were rare (<1.0%), and no VE Couplets or VE Triplets were present. Pito Crespo MD [facility] 12-16-2024 Instructions Patrick Hinson MD - 12/16/2024 9:03 AM EDT It was a pleasure seeing you in the office today. Here is a summary of the plan we discussed: How to use an inhaler with or without a spacer- https://www.cdc.gov/asthma/inha ler_video/default.htm Please start Symbicort inhaler - 2 puffs in the morning, 2 puffs in the evening, every day no matter what. Use the spacer (provided) and please rinse your mouth afterwards. Use the albuterol inhaler as needed if you are short of breath, or not at all if you are not short of breath. Please call the office or send me a message through [employer] if you have any questions. Sincerely, Patrick Hinson MD documented in this encounter [facility] 12-16-2024 Note HNO ID: [id number] Author: PATRICK HINSON MD Service: ? Author Type: Physician Type: Progress Notes Filed: 12/16/2024 12:11 Note Text: . [facility] Follow Up Visit Note Mr. Martinez is a 74 year old male who presents to the [facility] for follow up of cough. HPI: 74 year old male with a history relevant for: Former smoker, 30 pack years, quit in 1980s Afib s/p PVI, not on AC Significant pulmonary occupational exposures Allergic rhinitis I first saw patient in the office on 06/08/2024. 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 Dyspnea, chest tightness-improved with a sample of Trelegy from his PCP. Baseline breathing has worsened since then. Wheeze at rest, cough with sputum, slowly improving over time. Finds himself more dyspneic than prior on his walks. PFTs that visit showed moderate obstruction with significant improvement post bronchodilator and nitric oxide elevated at 79. Based on features of both COPD (chronically) and asthma (more acutely) I initiated Dulera 200 mcg with spacer. Subsequently, due to cost issues, I changed this to Advair discus 250-50. Today's Visit: Mr Martinez reports improvement in symptoms since the last visit, noting a significant reduction in cough and phlegm production. He attributes a recent onset of different milder phlegm to allergies, accompanied by a runny nose in the morning and postnasal drip at night. He is hesitant to take additional medication for allergies unless symptoms worsen. Previously thick and yellow phlegm has resolved, with only a small amount of white phlegm noted in the past week. He denies oral thrush or irritation, consistently rinsing with Listerine or water after using his Advair. He experiences a raspy voice, which he attributes to his Advair, and mild dyspnea, which he associates with cardiac issues. He continues to walk three times a week, covering a couple of miles each time, and reports improved endurance and reduced fatigue during these walks. His has noted that he speaks in a lower tone after these walks, which he attributes to mild fatigue. He denies sinus congestion. Clinic Questionnaire: COPD Assessment Test Cough 1 Phlegm 1 Chest tightness 1 When walking uphill or flight of steps 2 Activities at home 1 Leaving home despite lung condition 1 Sleeping 1 Energy 2 Total Score 10 PHYSICAL EXAM: BP 123/66 Pulse 67 Ht 5' 9 (1.75m) Wt 196 lb 3.4 oz (89.0kg) SpO2 97[RA]% BMI 28.96 kg/(m2). GEN: Alert, comfortable, sitting up in chair, no distress PULM: clear, no wheeze NEURO: appropriately interactive Objective Allergies: Propafenone and Sotalol Outpatient Medications: See separate documentation Labs / Imaging / Diagnostic Studies: All radiography listed below personally reviewed by me Data Reviewed from [employer] (in addition to that noted in HPI, and Past histories above): CMP: last bicarb 29 CBC: no eos checked PFT: 06/08/2024 Ratio 52% (low) FEV1 67% (low) -> +6% post BD (wnl) FVC 97% -> +10% post BD Moderate obstruction, sig response post BD Oral Exhaled Nitric Oxide measurement (Previous Encounters) Test Date Oral Exhaled Nitric Oxide (ppb) 12/16/2024 24.0 06/08/2024 79.0 (A) CT Chest: 2014 (Cardiac) 1. Normal pulmonary venous anatomy without pulmonary vein stenosis. 2. No left atrial or left atrial appendage thrombus. 3. Mildly ectatic ascending thoracic aorta measuring 3.8 cm ([id number]). 4. Smoking related airways disease and few small indeterminate pulmonary nodules are noted. 12 month follow-up chest CT is suggested to document stability. Echo: none on file Assessment and Plan: Mr. Martinez is a 74 year old male who presents to the [facility] for evaluation of asthma 1. Asthma with chronic obstructive pulmonary disease (COPD) ([facility]) (J44.89) Chronic obstructive pulmonary disease, unspecified COPD type (HCC) (J44.9) Improvement in cough and phlegm production and dyspnea. Proportional decrease in exhaled nitric oxide levels. Likely due to initiation of Advair diskus 250-50. Advair seems however to be causing dysphonia. We discussed affordable altneratives and spent significant time finding affordable options. HFA inhalers have a lower rate of dysphonia. - Initiate Symbicort 160mcg inhaler, 2 puffs BID, with spacer. I provided a one month prescription to fill via [facility] at [facility] to see if any additional symptom benefit conferred and improvement in hoarse voice - If helpful, he will let me know and I can send a more long-term rx to [facility] for bulk pickup (no [facility] stores near his home - If no benefit, should resume Advair diskus 250-50mcg 1 puff BID. 2. Seasonal allergic rhinitis, unspecified trigger (J30.2) Mild symptoms including rhinorrhe (more content not included)... [facility] 12-16-2024 History of Presen t illness Narrative . [facility] Follow Up Visit Note Mr. Martinez is a 74 year old male who presents to the [facility] for follow up of cough. HPI: 74 year old male with a history relevant for: Former smoker, 30 pack years, quit in 1980s Afib s/p PVI, not on AC Significant pulmonary occupational exposures Allergic rhinitis I first saw patient in the office on 06/08/2024. 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 Dyspnea, chest tightness-improved with a sample of Trelegy from his PCP. Baseline breathing has worsened since then. Wheeze at rest, cough with sputum, slowly improving over time. Finds himself more dyspneic than prior on his walks. PFTs that visit showed moderate obstruction with significant improvement post bronchodilator and nitric oxide elevated at 79. Based on features of both COPD (chronically) and asthma (more acutely) I initiated Dulera 200 mcg with spacer. Subsequently, due to cost issues, I changed this to Advair discus 250-50. Today's Visit: Mr Martinez reports improvement in symptoms since the last visit, noting a significant reduction in cough and phlegm production. He attributes a recent onset of different milder phlegm to allergies, accompanied by a runny nose in the morning and postnasal drip at night. He is hesitant to take additional medication for allergies unless symptoms worsen. Previously thick and yellow phlegm has resolved, with only a small amount of white phlegm noted in the past week. He denies oral thrush or irritation, consistently rinsing with Listerine or water after using his Advair. He experiences a raspy voice, which he attributes to his Advair, and mild dyspnea, which he associates with cardiac issues. He continues to walk three times a week, covering a couple of miles each time, and reports improved endurance and reduced fatigue during these walks. His has noted that he speaks in a lower tone after these walks, which he attributes to mild fatigue. He denies sinus congestion. Clinic Questionnaire: COPD Assessment Test Cough 1 Phlegm 1 Chest tightness 1 When walking uphill or flight of steps 2 Activities at home 1 Leaving home despite lung condition 1 Sleeping 1 Energy 2 Total Score 10 PHYSICAL EXAM: BP 123/66 Pulse 67 Ht 5' 9 (1.75m) Wt 196 lb 3.4 oz (89.0kg) SpO2 97[RA]% BMI 28.96 kg/(m^2). GEN: Alert, comfortable, sitting up in chair, no distress PULM: clear, no wheeze NEURO: appropriately interactive Objective Allergies: Propafenone and Sotalol Outpatient Medications: See separate documentation Labs / Imaging / Diagnostic Studies: All radiography listed below personally reviewed by me Data Reviewed from [facility] (in addition to that noted in HPI, and Past histories above): CMP: last bicarb 29 CBC: no eos checked PFT: 06/08/2024 Ratio 52% (low) FEV1 67% (low) -> +6% post BD (wnl) FVC 97% -> +10% post BD Moderate obstruction, sig response post BD Oral Exhaled Nitric Oxide measurement (Previous Encounters) Test Date Oral Exhaled Nitric Oxide (ppb) 12/16/2024 24.0 06/08/2024 79.0 (A) CT Chest: 2014 (Cardiac) 1. Normal pulmonary venous anatomy without pulmonary vein stenosis. 2. No left atrial or left atrial appendage thrombus. 3. Mildly ectatic ascending thoracic aorta measuring 3.8 cm ([id number]). 4. Smoking related airways disease and few small indeterminate pulmonary nodules are noted. 12 month follow-up chest CT is suggested to document stability. Echo: none on file Assessment and Plan: Mr. Martinez is a 74 year old male who presents to the [facility] for evaluation of asthma 1. Asthma with chronic obstructive pulmonary disease (COPD) ([facility]) (J44.89) Chronic obstructive pulmonary disease, unspecified COPD type ([facility]) (J44.9) Improvement in cough and phlegm production and dyspnea. Proportional decrease in exhaled nitric oxide levels. Likely due to initiation of Advair diskus 250-50. Advair seems however to be causing dysphonia. We discussed affordable altneratives and spent significant time finding affordable options. HFA inhalers have a lower rate of dysphonia. - Initiate Symbicort 160mcg inhaler, 2 puffs BID, with spacer. I provided a one month prescription to fill via [facility] at [facility] to see if any additional symptom benefit conferred and improvement in hoarse voice - If helpful, he will let me know and I can send a more long-term rx to [facility] for bulk pickup (no [facility] stores near his home - If no benefit, should resume Advair diskus 250-50mcg 1 puff BID. 2. Seasonal allergic rhinitis, unspecified trigger (J30.2) Mild symptoms including rhinorrhea and phlegm, likely due to post-nasal drip. Patient prefers to avoid additional medications at this time. Follow up in 6 months. With [facility] beforehand. Patrick Hinson MD Pulmonary and Critical Care Staff I spent a total of 32 minutes on the date of the service which included preparing to see the patient, fmbo-jf-tofy patient care, completing clinical documentation, obtaining and/or reviewing separately obtained history, performing a medically appropriate examination, and counseling and educating the patient/family/caregiver. The patient consented to the use of [employer] software for draft documentation of the visit consistent with [facility] s Notice of Privacy Practices. documented in this encounter [facility] 12-16-2024 Note HNO ID: [id number] Author: ILEANA JAMA RRT Service: ? Author Type: Registered Resp Therapist Type: Procedures Filed: 12/16/2024 08:29 Note Text: RESPIRATORY THERAPY ORAL EXHALED NITRIC OXIDE SERVICE DATE: 12/16/2024 SERVICE TIME: 8:29 AM Oral Exhaled Nitric Oxide measurement: 24.0 (ppb) Normal: Adult <25 ppb, pediatric (<12 years) <20 ppb High Normal / Increased: Adult 25-50 ppb, pediatric (<12 years) 20-35 ppb Moderately raised exhaled Nitric Oxide may indicate underlying inflammation, but note that: Cold and influenza can raise exhaled Nitric Oxide and some patients have higher baseline exhaled Nitric Oxide levels than others. High: Adult >50 ppb, pediatric (<12 years) >35 ppb Indicative of ongoing eosinophilic inflammation. Symptomatic patient likely to respond to steroids. Possible causes (if already on steroids): Poor compliance, recent allergen exposure, steroid dose inadequate, and steroid resistance. Note that not all patients with high exhaled nitric oxide levels display symptoms. 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 RRT PATIENT NAME: Montse Martinez DATE: December 16, 2024 TIME: 8:29 AM [facility] 12-16-2024 Procedure note Associated Ord er(s): NITRIC OXIDE, EXHALED RESPIRATORY THERAPY ORAL EXHALED NITRIC OXIDE SERVICE DATE: 12/16/2024 SERVICE TIME: 8:29 AM Oral Exhaled Nitric Oxide measurement: 24.0 (ppb) Normal: Adult <25 ppb, pediatric (<12 years) <20 ppb High Normal / Increased: Adult 25-50 ppb, pediatric (<12 years) 20-35 ppb Moderately raised exhaled Nitric Oxide may indicate underlying inflammation, but note that: Cold and influenza can raise exhaled Nitric Oxide and some patients have higher baseline exhaled Nitric Oxide levels than others. High: Adult >50 ppb, pediatric (<12 years) >35 ppb Indicative of ongoing eosinophilic inflammation. Symptomatic patient likely to respond to steroids. Possible causes (if already on steroids): Poor compliance, recent allergen exposure, steroid dose inadequate, and steroid resistance. Note that not all patients with high exhaled nitric oxide levels display symptoms. 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 RRT PATIENT NAME: Montse Martinez DATE: December 16, 2024 TIME: 8:29 AM [facility] 12-16-2024 Procedure note Associated Ord er(s): NITRIC OXIDE, EXHALED RESPIRATORY THERAPY ORAL EXHALED NITRIC OXIDE SERVICE DATE: 12/16/2024 SERVICE TIME: 8:29 AM Oral Exhaled Nitric Oxide measurement: 24.0 (ppb) Normal: Adult <25 ppb, pediatric (<12 years) <20 ppb High Normal / Increased: Adult 25-50 ppb, pediatric (<12 years) 20-35 ppb Moderately raised exhaled Nitric Oxide may indicate underlying inflammation, but note that: Cold and influenza can raise exhaled Nitric Oxide and some patients have higher baseline exhaled Nitric Oxide levels than others. High: Adult >50 ppb, pediatric (<12 years) >35 ppb Indicative of ongoing eosinophilic inflammation. Symptomatic patient likely to respond to steroids. Possible causes (if already on steroids): Poor compliance, recent allergen exposure, steroid dose inadequate, and steroid resistance. Note that not all patients with high exhaled nitric oxide levels display symptoms. 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 RRT PATIENT NAME: Montse Martinez DATE: December 16, 2024 TIME: 8:29 AM documented in this encounter [facility] 09-16-2024 Telephone encounter Note [facility] 06/08/24 12/16/24 Pharmacy electronically requests the following refill(s) Requested Prescriptions Pending Prescriptions Disp Refills fluticasone-salmeterol (ADVAIR, WIXELA) 250-50 mcg/dose inhaler 60 Each 2 Sig: Inhale 1 Puff as instructed two times a day. Haja Monae LPN [facility] 09-16-2024 Miscellaneous Notes [facility]RICIO 06/08/24 12/16/24 Pharmacy electronically requests the following refill(s) Requested Prescriptions Pending Prescriptions Disp Refills fluticasone-salmeterol (ADVAIR, WIXELA) 250-50 mcg/dose inhaler 60 Each 2 Sig: Inhale 1 Puff as instructed two times a day. Haja Monae LPN documented in this encounter [facility] 07-27-2024 Evaluation note Diagnosis Onset Date Resolution Hypothyroid acute July 8:55am Medicare annual wellness visit, subsequent noneactive July 27, 8:55am [facility] Work Phone: 1(105) 392-295610-16-2024 Hospital Discharge instructions Patient Education 06/23/2024 15:33:30 Dietary Guidelines to Help Prevent Kidney Stones Dietary Guidelines to Help Prevent Kidney Stones Kidney stones are deposits of minerals and salts that form inside your kidneys. Your risk of developing kidney stones may be greater depending on your diet, your lifestyle, the medicines you take, and whether you have certain medical conditions. Most people can lower their risks of developing kidney stones by following these dietary guidelines. Your dietitian may give you more specific instructions depending on your overall health and the type of kidney stones you tend to develop. What are tips for following this plan? Reading food labels Choose foods with no salt added or low-salt labels. Limit your salt (sodium) intake to less than 1,500 mg a day. Choose foods with calcium for each meal and snack. Try to eat about 300 mg of calcium at each meal.Foods that contain 200 500 mg of calcium a serving include: ?8 oz (237 mL) of milk, xbeovpz-lrdnyxidslbu-fnhpl milk, and calcium- fortifiedfruit juice. Calcium-fortified means that calcium has been added to these drinks. ?8 oz (237 mL) of kefir, yogurt, and soy yogurt. ?4 oz (114 g) of tofu. ?1 oz (28 g) of cheese. ?1 cup (150 g) of dried figs. ?1 cup (91 g) of cooked broccoli. ?One 3 oz (85 g) can of sardines or mackerel. Most people need 1,000 1,500 mg of calcium a day. Talk to your dietitian about how much calcium is recommended for you. Shopping Buy plenty of fresh fruits and vegetables. Most people do not need to avoid fruits and vegetables, even if these foods contain nutrients that may contribute to kidney stones. When shopping for convenience foods, choose: ?Whole pieces of fruit. ?Pre-made salads with dressing on the side. ?Low-fat fruit and yogurt smoothies. Avoid buying frozen meals or prepared deli foods. These can be high in sodium. Look for foods with live cultures, such as yogurt and kefir. Choose high-fiber grains, such as whole-wheat breads, oat bran, and wheat cereals. Cooking Do not add salt to food when cooking. Place a salt shaker on the table and allow each person to addtheir own salt to taste. Use vegetable protein, such as beans, textured vegetable protein (TVP), or tofu, instead of meat inpasta, casseroles, and soups. Meal planning Eat less salt, if told by your dietitian. To do this: ?Avoid eating processed or pre-made food. ?Avoid eating fast food. Eat less animal protein, including cheese, meat, poultry, or fish, if told by your dietitian. To dothis: ?Limit the number of times you have meat, poultry, fish, or cheese each week. Eat a diet free of meat at least 2 days a week. ?Eat only one serving each day of meat, poultry, fish, or seafood. ?When you prepare animal proteins, cut pieces into small portion sizes. For most meat and fish, oneserving is about the size of the palm of your hand. Eat at least five servings of fresh fruits and vegetables each day. To do this: ?Keep fruits and vegetables on hand for snacks. ?Eat one piece of fruit or a handful of berries with breakfast. ?Have a salad and fruit at lunch. ?Have two kinds of vegetables at dinner. You may be told to limit foods that are high in a substance called oxalate. These include: ?Spinach (cooked), rhubarb, beets, sweet potatoes, and Cuban chard. ?Peanuts. ?Potato chips, marshallese fries, and baked potatoes with skin on. ?Nuts and nut products. ?Chocolate. If you regularly take a diuretic medicine, make sure to eat at least 1 or 2 servings of fruits or vegetables that are high in potassium each day. These include: ?Avocado. ?Banana. ?[place], prune, carrot, or tomato juice. ?Baked potato. ?Cabbage. ?Beans and split peas. Lifestyle Drink enough fluid to keep your urine pale yellow. This is the most important thing you can do. Spread your fluid intake throughout the day. If you drink alcohol: ?Limit how much you have to: ?0 1 drink a day for women who are not . ?0 2 drinks a day for men. ?Know how much alcohol is in your drink. In the [place] one drink equals one 12 oz bottle of beer (355 mL), one 5 oz glass of wine (148 mL), or one 1 oz glass of hard liquor (44 mL). Lose weight if told by your health care provider. Work with your dietitian to find an eating plan and weight loss strategies that work best for you. General information Talk to your health care provider and dietitian about taking daily supplements. Depending on your health and the cause of your kidney stones, you may be told: ?Do not take high-dose supplements of vitamin C (1,000 mg a day or more). ?To take a calcium supplement. ?To take a daily probiotic supplement. ?To take other supplements such as magnesium, fish oil, or vitamin B6. Take gdnx-kpc-bfbbehc and prescription medicines only as told by your health care provider. These include supplements. What foods should I limit? Limit your intake of the following foods, or eat them as told by your dietitian. Vegetables Spinach. Rhubarb. Beets. Canned vegetables. Pickles. Olives. Baked potatoes with skin. Grains Wheat bran. Baked goods. Salted crackers. Cereals high in sugar. Meats and other proteins Nuts. Nut butters. Large portions of meat, poultry, or fish. Salted, precooked, or cured meats, such as sausages, meat loaves, and hot dogs. Dairy Cheeses. Beverages Regular soft drinks. Regular vegetable juice. Seasonings and condiments Seasoning blends with salt. Salad dressings. Soy sauce. Ketchup. Barbecue sauce. Other foods Canned soups. Canned pasta sauce. Casseroles. Pizza. Lasagna. Frozen meals. Potato chips. [place] fries. The items listed above may not be a complete list of foods and beverages you should limit. Contact a dietitian for more information. What foods should I avoid? Talk to your dietitian about specific foods you should avoid based on the type of kidney stones youhave and your overall health. Fruits Grapefruit. The item listed above may not be a complete list of foods and beverages you should avoid. Contact adietitian for more information. Summary Kidney stones are deposits of minerals and salts that form inside your kidneys. You can lower your risk of kidney stones by making changes to your diet. The most important thing you can do is drink enough fluid. Drink enough fluid to keep your urine pale yellow. Talk to your dietitian about how much calcium you should have each day, and eat less salt and animal protein as told by your dietitian. This information is not intended to replace advice given to you by your health care provider. Make sure you discuss any questions you have with your health care provider. Document Revised: 12/05/2022 Document Reviewed: 12/05/2022 [employer] Patient Education 2023 [employer]. Follow Up Care 11/26/2023 14:46:19 With:BRANDEN ELIZALDE, Carlos Enrique Falk, URL Address: [address] [place], [place] [id number]- When: Unknown [facility] Kin [id number] NotePatient Education Nephrology Dietary Guidelines to Help Prevent Kidney Stones Kidney stones are deposits of minerals and salts that form inside your kidneys. Your risk of developing kidney stones may be greater depending on your diet, your lifestyle, the medicines you take, and whether you have certain medical conditions. Most people can lower their risks of developing kidney stones by following these dietary guidelines. Your dietitian may give you more specific instructions depending on your overall health and the type of kidney stones you tend to develop. What are tips for following this plan? Reading food labels ? Choose foods with no salt added or low-salt labels. Limit your salt (sodium) intake to less than 1,500 mg a day. ? Choose foods with calcium for each meal and snack. Try to eat about 300 mg of calcium at each meal. Foods that contain 200?500 mg of calcium a serving include: ? 8 oz (237 mL) of milk, fljylmv-lvutlstslmgy-mvfyc milk, and calcium- fortifiedfruit juice. Calcium-fortified means that calcium has been added to these drinks. ? 8 oz (237 mL) of kefir, yogurt, and soy yogurt. ? 4 oz (114 g) of tofu. ? 1 oz (28 g) of cheese. ? 1 cup (150 g) of dried figs. ? 1 cup (91 g) of cooked broccoli. ? One 3 oz (85 g) can of sardines or mackerel. Most people need 1,000?1,500 mg of calcium a day. Talk to your dietitian about how much calcium is recommended for you. Shopping ? Buy plenty of fresh fruits and vegetables. Most people do not need to avoid fruits and vegetables, even if these foods contain nutrients that may contribute to kidney stones. ? When shopping for convenience foods, choose: ? Whole pieces of fruit. ? Pre-made salads with dressing on the side. ? Low-fat fruit and yogurt smoothies. ? Avoid buying frozen meals or prepared deli foods. These can be high in sodium. ? Look for foods with live cultures, such as yogurt and kefir. ? Choose high-fiber grains, such as whole-wheat breads, oat bran, and wheat cereals. Cooking ? Do not add salt to food when cooking. Place a salt shaker on the table and allow each person to add their own salt to taste. ? Use vegetable protein, such as beans, textured vegetable protein (TVP), or tofu, instead of meat in pasta, casseroles, and soups. Meal planning ? Eat less salt, if told by your dietitian. To do this: ? Avoid eating processed or pre-made food. ? Avoid eating fast food. ? Eat less animal protein, including cheese, meat, poultry, or fish, if told by your dietitian. To do this: ? Limit the number of times you have meat, poultry, fish, or cheese each week. Eat a diet free of meat at least 2 days a week. ? Eat only one serving each day of meat, poultry, fish, or seafood. ? When you prepare animal proteins, cut pieces into small portion sizes. For most meat and fish, one serving is about the size of the palm of your hand. ? Eat at least five servings of fresh fruits and vegetables each day. To do this: ? Keep fruits and vegetables on hand for snacks. ? Eat one piece of fruit or a handful of berries with breakfast. ? Have a salad and fruit at lunch. ? Have two kinds of vegetables at dinner. ? You may be told to limit foods that are high in a substance called oxalate. These include: ? Spinach (cooked), rhubarb, beets, sweet potatoes, and Cuban chard. ? Peanuts. ? Potato chips, marshallese fries, and baked potatoes with skin on. ? Nuts and nut products. ? Chocolate. ? If you regularly take a diuretic medicine, make sure to eat at least 1 or 2 servings of fruits orvegetables that are high in potassium each day. These include: ? Avocado. ? Banana. ? [place], prune, carrot, or tomato juice. ? Baked potato. ? Cabbage. ? Beans and split peas. Lifestyle ? Drink enough fluid to keep your urine pale yellow. This is the most important thing you can do. Spread your fluid intake throughout the day. ? If you drink alcohol: ? Limit how much you have to: ? 0?1 drink a day for women who are not . ? 0?2 drinks a day for men. ? Know how much alcohol is in your drink. In the [place] one drink equals one 12 oz bottle of beer (355 mL), one 5 oz glass of wine (148 mL), or one 1? oz glass of hard liquor (44 mL). ? Lose weight if told by your health care provider. Work with your dietitian to find an eating planand weight loss strategies that work best for you. General information ? Talk to your health care provider and dietitian about taking daily supplements. Depending on yourhealth and the cause of your kidney stones, you may be told: ? Do not take high-dose supplements of vitamin C (1,000 mg a day or more). ? To take a calcium supplement. ? To take a daily probiotic supplement. ? To take other supplements such as magnesium, fish oil, or vitamin B6. ? Take ekzm-pbj-nycddds and prescription medicines only as told by your health care provider. Theseinclude suppleme (more content not included)...[facility]10-10-2024 History of Present illness Narrative* Lev Price DO - 06/17/2024 9:30 AM EDT Images from the original note were not included. [facility]Y OUTPATIENT VISIT DATE June 17, 2024 OUTPATIENT VISIT TYPE ESTABLISHED PRIMARY CARE PHYSICIAN: Sole Daley [address] [place] [address] [address] [place] [address] CHIEF COMPLAINT: Arrhythmia HISTORY OF PRESENT ILLNESS: Mr. Martinez is a 74 year old male with a past medical history of atrial fibrillation status post PVI,HLD, hypothyroid. I saw him previously on 08/14/2023, per that note: ...he states that he is feeling well. He denies having any: chest pain, palpitations, shortness of breath, orthopnea, LE edema, presyncope/syncope, N/V, bleeding, or other significant symptoms. Today, he had some shortness of breath which he attributes to asthma/COPD. He is supposed to obtainan inhaler yet, the mendiola was expensive. He denies having any: chest pain, palpitations, orthopnea,LE edema, presyncope/syncope, N/V, bleeding, or other significant symptoms. He is eating vegetables daily. He drinks 1/2 caf about 4 cups a day. He doesn't drink any alcohol. He quit smoking 30 years ago. No drugs. He attempts to walk 2-3 miles 3x a week. Family, Mother had an enlarged heart. Brother had an MO when he was 72 years of age. 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 IMPRESSION: Encounter Diagnosis ICD-10-CM 1. Paroxysmal atrial fibrillation (HCC) I48.0 ECG COMPLETE 2. Primary hypertension I10 ECG COMPLETE BASIC METABOLIC PANEL COMPLETE BLOOD COUNT 3. Mixed hyperlipidemia E78.2 LIPID PANEL BASIC rosuvastatin (CRESTOR) 40 mg tablet 4. Overweight (BMI 25.0-29.9) E66.3 PLAN AND [...] than 130/80 mmHg. Today BP is above goal yet he did not take his medication prior to this appointment. He believes it is controlled at home. Continue: losartan 50mg daily. He should monitor his BP and bring BP log to next visit. I recommend checking BMP prior to next visit. Goal LDL is less than 70 mg/dL. Increase rosuvastatin to 40 mg nightly. Monitor for myalgias. CheckLipid panel prior to next visit. Goal A1c is less than 7.0%. Currently overweight, recommend continuing heart healthy diet and exercising regularly. PHYSICAL EXAMINATION: BP 150/86 Pulse (!) 55 Wt 88 kg (194 lb 0.1 oz) SpO2 99% BMI 28.65 kg/m General: No apparent distress [...] reviewed ECG and outside facility laboratory results ECG-06/17/2024 Sinus bradycardia 54 bpm, otherwise normal ECG Latest Reference Range & Units 02/04/24 08:14 Cholesterol, Total <200 mg/dL 170 Triglyceride <150 mg/dL 97 Fasting Time hrs 12 HDL Cholesterol >39 mg/dL 57 LDL Cholesterol <100 mg/dL 94 VLDL Cholesterol <30 mg/dL 19 TC:HDL Ratio <5.10 2.98 LDL:HDL Ratio <2.54 1.65 Last EKG Result Conclusion ECG COMPLETE Collected: 06/17/2024 9:32 AM (Preliminary result) Impression: SINUS BRADYCARDIA OTHERWISE NORMAL ECG PAST MEDICAL HISTORY Diagnosis Date Atrial fibrillation (HCC) 2008 Hypercholesterolaemia Hypothyroidism Osteoarthritis Other disorders of ear(388.8) bilat hearing aids PAST SURGICAL HISTORY Procedure Laterality Date PAST SURGICAL HISTORY OF Bilateral 2009 shoulders PAST SURGICAL HISTORY OF facial reconstruction REPAIR UMBILICAL HERNIA Social History Tobacco Use Smoking status: Former Current packs/day: 0.00 Average packs/day: 1 pack/day for 25.0 years (25.0 ttl pk-yrs) Types: Cigarettes Start date: 09/08/1964 Quit date: 09/08/1989 Years since quittin.7 Smokeless tobacco: Never Substance Use Topics Alcohol use: No Drug use: No FAMILY HISTORY Problem Relation Age of Onset Heart Mother CAD/pacemaker Cancer Father pancreatic other (a fib [Other]) Brother ALLERGIES Allergen Reactions Propafenone Other: See Comments Not effective (pill in the pocket) Sotalol Other: See Comments Dizzeness CURRENT MEDICATIONS: fluticasone-salmeterol HFA (ADVAIR) 230-21 mcg/actuation inhaler Inhale 2 Puffs as instructed two times a day. losartan (COZAAR) 25 mg tablet take 1 tablet by mouth daily Methylcellulose, Laxative, (FIBER THERAPY, M-CELLULOSE,) 500 mg tab Take by mouth q 12 HR. cholecalciferol, vitamin D3, 350 mcg (14,000 unit) cap Take by mouth. SAW PALMETTO ORAL Take by mouth twice daily. Take one tab po bid aspirin, enteric coated (ECOTRIN) 325 mg EC tablet Take 1 tablet by mouth once daily. (Patient taking differently: Take 81 mg by mouth once daily.) levothyroxine (SYNTHROID) 25 mcg tablet Take 25 mcg by mouth once daily. MULTIVITS,CA,MIN/IRON/FA/LYCOP (CENTRUM MEN ORAL) Take 1 tablet by mouth once daily. rosuvastatin (CRESTOR) 40 mg tablet Take 1 tablet by mouth daily at bedtime. [facility] NoteHNO ID: [id number] Author: LEV PRICE DO Service: ? Author Type: Physician Type: Progress Notes Filed: 06/17/2024 09:57 Note Text: [facility] CARDIOLOGY OUTPATIENT VISIT DATE June 17, 2024 OUTPATIENT VISIT TYPE ESTABLISHED PRIMARY CARE PHYSICIAN: Sole Daley [address] [place] [address] [address] [place] [address] CHIEF COMPLAINT: Arrhythmia HISTORY OF PRESENT ILLNESS: Mr. Martinez is a 74 year old male with a past medical history of atrial fibrillation status post PVI, HLD, hypothyroid. I saw him previously on 08/14/2023, per that note: ...he states that he is feeling well. He denies having any: chest pain, palpitations, shortness of breath, orthopnea, LE edema, presyncope/syncope, N/V, bleeding, or other significant symptoms. Today, he had some shortness of breath which he attributes to asthma/COPD. He is supposed to obtain an inhaler yet, the mendiola was expensive. He denies having any: chest pain, palpitations, orthopnea, LE edema, presyncope/syncope, N/V, bleeding, or other significant symptoms. He is eating vegetables daily. He drinks 1/2 caf about 4 cups a day. He doesn't drink any alcohol. He quit smoking 30 years ago. No drugs. He attempts to walk 2-3 miles 3x a week. Family, Mother had an enlarged heart. Brother had an MO when he was 72 years of age. 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 IMPRESSION: Encounter Diagnosis ICD-10-CM 1. Paroxysmal atrial fibrillation (HCC) I48.0 ECG COMPLETE 2. Primary hypertension I10 ECG COMPLETE BASIC METABOLIC PANEL COMPLETE BLOOD COUNT 3. Mixed hyperlipidemia E78.2 LIPID PANEL BASIC rosuvastatin (CRESTOR) 40 mg tablet 4. Overweight (BMI 25.0-29.9) E66.3 PLAN AND [...] than 130/80 mmHg. Today BP is above goal yet he did not take his medication prior to this appointment. He believes it is controlled at home. Continue: losartan 50mg daily. He should monitor his BP and bring BP log to next visit. I recommend checking BMP prior to next visit. Goal LDL is less than 70 mg/dL. Increase rosuvastatin to 40 mg nightly. Monitor for myalgias. Check Lipid panel prior to next visit. Goal A1c is less than 7.0%. Currently overweight, recommend continuing heart healthy diet and exercising regularly. PHYSICAL EXAMINATION: BP 150/86 Pulse (!) 55 Wt 88 kg (194 lb 0.1 oz) SpO2 99% BMI 28.65 kg/m? General: No apparent distress [...] reviewed ECG and outside facility laboratory results ECG-06/17/2024 Sinus bradycardia 54 bpm, otherwise normal ECG Latest Reference Range AND Units 02/04/24 08:14 Cholesterol, Total <200 mg/dL 170 Triglyceride <150 mg/dL 97 Fasting Time hrs 12 HDL Cholesterol >39 mg/dL 57 LDL Cholesterol <100 mg/dL 94 VLDL Cholesterol <30 mg/dL 19 TC:HDL Ratio <5.10 2.98 LDL:HDL Ratio <2.54 1.65 Last EKG Result Conclusion ECG COMPLETE Collected: 06/17/2024 9:32 AM (Preliminary result) Impression: SINUS BRADYCARDIA OTHERWISE NORMAL ECG PAST MEDICAL HISTORY Diagnosis Date Atrial fibrillation (HCC) 2008 Hypercholesterolaemia Hypothyroidism Osteoarthritis Other disorders of ear(388.8) bilat hearing aids PAST SURGICAL HISTORY Procedure Laterality Date PAST SURGICAL HISTORY OF Bilateral 2009 shoulders PAST SURGICAL HISTORY OF facial reconstruction REPAIR UMBILICAL HERNIA Social History Tobacco Use Smoking status: Former Current packs/day: 0.00 Average packs/day: 1 pack/day for 25.0 years (25.0 ttl pk-yrs) Types: Cigarettes Start date: 09/08/1964 Quit date: 09/08/1989 Years since quittin.7 Smokeless tobacco: Never Substance Use Topics Alcohol use: No Drug use: No FAMILY HISTORY Problem Relation Age of Onset Heart Mother CAD/pacemaker Cancer Father pancreatic other (a fib [Other]) Brother ALLERGIES Allergen Reactions Propafenone Other: See Comments Not effective (pill in the pocket) Sotalol Other: See Comments Dizzeness CURRENT MEDICATIONS: fluticasone-salmeterol HFA (ADVAIR) 230-21 mcg/actuation inhaler Inhale 2 Puffs as instructed two times a day. losartan (COZAAR) 25 (more content not included)...[facility] 06-08-2024 Instructions* Patient Instructions* Patrick Hinson MD - 06/08/2024 11:19 AM EDT It was a pleasure seeing you in the office today. Here is a summary of the plan we discussed: How to use an inhaler with or without a spacer- https://www.cdc.gov/asthma/inhaler_video/default.htm Please start Dulera inhaler - 2 puffs in the morning, 2 puffs in the evening, every day no matter what. Use the spacer (provided) and please rinse your mouth afterwards. Use the albuterol inhaler as needed if you are short of breath, or not at all if you are not short of breath. If the Dulera is too expensive, please ask the pharmacist about the following alternatives (in order of preference): Symbicort, Advair HFA, Breo, Advair diskus, Wixela, AirDuo. Please call the office or send me a message through [employer] if you have any questions. Sincerely, Patrick Hinson MD documented in this [facility] History and physical note * Patrick Hinson MD - 06/08/2024 10:46 AM EDT . [facility] Initial Visit Note Mr. Martinez is a 74 year old male who [facility] to the [facility]. Consultation requested by Uzair Pak MD for an opinion regarding cough. My final recommendations/evaluation will be communicated back to the requesting physician by way of shared medical record or lettervia US mail. HPI: 74 year old male with a history relevant for: Former smoker, 30 pack years, quit in 1980s Afib s/p PVI, not on AC Accompanied today by his . Retied for a few years. 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 Did not wear a mask. Worsening shortness of breath, chest tightness. Similar to exposure to fiberglass insulation in attic sometimes. Per - he was struggling to breath. Saw PCP who prescribed 14 day sample of Trelegy. Helped a lot - felt significantly better after 14 days. Then stopped and has remained off. Seems to have had worsening of his baseline symptoms since that time. hears a wheeze even at rest - audible across the room. Produces signifcant sputum a/w cough. Can have prolonged paroxysms. Sputum is yellowish or clear and thick. Seems to be improving over time. Lots of occupational exposures. 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 PCP is through [facility]. Followed lung nodules from 2016 to 2018, noted to be completely stable, after which surveillance was discontinued. Seasonal allergies - usually watery eyes, rhinorrhea, cough, wheeze. Spring worse than fall typically. Takes [employer]. Walks three times per week, a few miles at a time. Includes inclines. Will get mildly dyspneic toward the end of these walks. Is overall exhausted at the end of the walks. Symptomatic with digging inthe garden - takes more breaks than before. No leg swelling. No GERD routinely. No breathing issues with sleep. Does not awaken from sleep coughing. Past Medical History: PAST MEDICAL HISTORY Diagnosis Date Atrial fibrillation (HCC) 2008 Hypercholesterolaemia Hypothyroidism Osteoarthritis Other disorders of ear(388.8) bilat hearing aids Past Surgical History: PAST SURGICAL HISTORY Procedure Laterality Date PAST SURGICAL HISTORY OF Bilateral 2009 shoulders PAST SURGICAL HISTORY OF facial reconstruction REPAIR UMBILICAL HERNIA Work and Social Histories: Social History Tobacco Use Smoking status: Former Current packs/day: 0.00 Average packs/day: 1 pack/day for 25.0 years (25.0 ttl pk-yrs) Types: Cigarettes Start date: 09/08/1964 Quit date: 09/08/1989 Years since quittin.7 Smokeless tobacco: Never Substance Use Topics Alcohol use: No Drug use: No Occ history as above. Family History: FAMILY HISTORY Problem Relation Age of Onset Heart Mother CAD/pacemaker Cancer Father pancreatic other (a fib [Other]) Brother PHYSICAL EXAM: BP 133/86 Pulse 64 Wt 190 lb (86.2kg) SpO2 99% GEN: Alert, comfortable, sitting up in chair, no distress EYES: Anicteric sclera, no conjunctival injection HENT: Pharynx clear, tongue normal CV: RRR, no peripheral edema PULM: clear, no wheeze NEURO: appropriately interactive, No asterixis SKIN: Normal turgor, No palmar plethora EXT: No cyanosis or clubbing Objective Allergies: Propafenone and Sotalol Outpatient Medications: See separate documentation Labs / Imaging / Diagnostic Studies: All radiography listed below personally reviewed by me Data Reviewed from [facility] (in addition to that noted in HPI, and Past histories above): CMP: last bicarb 29 CBC: no eos checked PFT: 06/08/2024 Ratio 52% (low) FEV1 67% (low) -> +6% post BD (wnl) FVC 97% -> +10% post BD Moderate obstruction, normalizes post BD FENO 79ppb CT Chest: 2015 (Cardiac) 1. Normal pulmonary venous anatomy without pulmonary vein stenosis. 2. No left atrial or left atrial appendage thrombus. 3. Mildly ectatic ascending thoracic aorta measuring 3.8 cm ([id number]). 4. Smoking related airways disease and few small indeterminate pulmonary nodules are noted. 12 month follow-up chest CT is suggested to document stability. Echo: none on file Assessment and Plan: Mr. Martinez is a 74 year old male who presents to the [facility] for evaluation of dyspnea. #Asthma #COPD #Dyspnea History and testing are suggestive of both asthma (characteristic irritant triggers, associated seasonal allergies, elevated FENO, borderline BD response) and COPD (extensive smoking history, fixed obstruction on butch, mild emphysema on old CT). Untreated to date. 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 Based on features of asthma, high FENO, and ease of HFA use, I will start with ICS-LABA. -Start Dulera 200mcg, 2 puffs BID with spacer (Provided) -Check A1AT pheno/thien and CBC w diff -Repeat FENO at next visit on therapy #Former smoker #Lung nodules Quit > 15 years ago. Nodules reported to be stable x 3 years per PCP surveillance. No further monitoring needed. Follow up in 6 months Patrick Hinson MD Pulmonary and Critical Care Staff [facility] level 4 [facility] History and physical note* Patrick Hinson MD - 06/08/2024 10:46 AM EDT . [facility] Initial Visit Note Mr. Martinez is a 74 year old male who presents to the [facility]. Consultation requested by Uzair Pak MD for an opinion regarding cough. My final recommendations/evaluation will be communicated back to the requesting physician by way of shared medical record or lettervia US mail. HPI: 74 year old male with a history relevant for: Former smoker, 30 pack years, quit in 1980s Afib s/p PVI, not on AC Accompanied today by his . Retied for a few years. 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 Did not wear a mask. Worsening shortness of breath, chest tightness. Similar to exposure to fiberglass insulation in attic sometimes. Per - he was struggling to breath. Saw PCP who prescribed 14 day sample of Trelegy. Helped a lot - felt significantly better after 14 days. Then stopped and has remained off. Seems to have had worsening of his baseline symptoms since that time. hears a wheeze even at rest - audible across the room. Produces signifcant sputum a/w cough. Can have prolonged paroxysms. Sputum is yellowish or clear and thick. Seems to be improving over time. Lots of occupational exposures. 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 PCP is through [facility]. Followed lung nodules from 2016 to 2018, noted to be completely stable, after which surveillance was discontinued. Seasonal allergies - usually watery eyes, rhinorrhea, cough, wheeze. Spring worse than fall typically. Takes [employer]. Walks three times per week, a few miles at a time. Includes inclines. Will get mildly dyspneic toward the end of these walks. Is overall exhausted at the end of the walks. Symptomatic with digging inthe garden - takes more breaks than before. No leg swelling. No GERD routinely. No breathing issues with sleep. Does not awaken from sleep coughing. Past Medical History: PAST MEDICAL HISTORY Diagnosis Date Atrial fibrillation (HCC) 2008 Hypercholesterolaemia Hypothyroidism Osteoarthritis Other disorders of ear(388.8) bilat hearing aids Past Surgical History: PAST SURGICAL HISTORY Procedure Laterality Date PAST SURGICAL HISTORY OF Bilateral 2009 shoulders PAST SURGICAL HISTORY OF facial reconstruction REPAIR UMBILICAL HERNIA Work and Social Histories: Social History Tobacco Use Smoking status: Former Current packs/day: 0.00 Average packs/day: 1 pack/day for 25.0 years (25.0 ttl pk-yrs) Types: Cigarettes Start date: 09/08/1964 Quit date: 09/08/1989 Years since quittin.7 Smokeless tobacco: Never Substance Use Topics Alcohol use: No Drug use: No Occ history as above. Family History: FAMILY HISTORY Problem Relation Age of Onset Heart Mother CAD/pacemaker Cancer Father pancreatic other (a fib [Other]) Brother PHYSICAL EXAM: BP 133/86 Pulse 64 Wt 190 lb (86.2kg) SpO2 99% GEN: Alert, comfortable, sitting up in chair, no distress EYES: Anicteric sclera, no conjunctival injection HENT: Pharynx clear, tongue normal CV: RRR, no peripheral edema PULM: clear, no wheeze NEURO: appropriately interactive, No asterixis SKIN: Normal turgor, No palmar plethora EXT: No cyanosis or clubbing Objective Allergies: Propafenone and Sotalol Outpatient Medications: See separate documentation Labs / Imaging / Diagnostic Studies: All radiography listed below personally reviewed by me Data Reviewed from [facility] (in addition to that noted in HPI, and Past histories above): CMP: last bicarb 29 CBC: no eos checked PFT: 06/08/2024 Ratio 52% (low) FEV1 67% (low) -> +6% post BD (wnl) FVC 97% -> +10% post BD Moderate obstruction, normalizes post BD FENO 79ppb CT Chest: 2014 (Cardiac) 1. Normal pulmonary venous anatomy without pulmonary vein stenosis. 2. No left atrial or left atrial appendage thrombus. 3. Mildly ectatic ascending thoracic aorta measuring 3.8 cm ([id number]). 4. Smoking related airways disease and few small indeterminate pulmonary nodules are noted. 12 month follow-up chest CT is suggested to document stability. Echo: none on file Assessment and Plan: Mr. Martinez is a 74 year old male who [facility] to the [facility] for evaluation of dyspnea. #Asthma #COPD #Dyspnea History and testing are suggestive of both asthma (characteristic irritant triggers, associated seasonal allergies, elevated FENO, borderline BD response) and COPD (extensive smoking history, fixed obstruction on butch, mild emphysema on old CT). Untreated to date. 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 Based on features of asthma, high FENO, and ease of HFA use, I will start with ICS-LABA. -Start Dulera 200mcg, 2 puffs BID with spacer (Provided) -Check A1AT pheno/thien and CBC w diff -Repeat FENO at next visit on therapy #Former smoker #Lung nodules Quit > 15 years ago. Nodules reported to be stable x 3 years per PCP surveillance. No further monitoring needed. Follow up in 6 months Patrick Hinson MD Pulmonary and Critical Care Staff [facility] level 4 documented in this encounterKeen[facility]10-01-2024 NoteHNO ID: [id number] Author: ARDHA RAMIREZ RRT Service: ? Author Type: Registered Resp Therapist Type: Progress Notes Filed: 06/08/2024 09:55 Note Text: PULM FUNCTION: Provider: Patrick Hinson MD Spirometry w/BD: 1 Exhaled Nitric Oxide: [address] [place], [place] [address]10-01-2024 NoteHNO ID: [id number] Author: RADHA RAMIREZ RRT Service: ? Author Type: Registered Resp Therapist Type: Procedures Filed: 06/08/2024 10:05 Note Text: ALLERGY AND IMMUNOLOGY ORAL EXHALED NITRIC OXIDE SERVICE DATE: 06/08/2024 SERVICE TIME: 9:54 AM Oral Exhaled Nitric Oxide measurement: 79.0 (ppb) (A) Normal: Adult <25 ppb, pediatric (<12 years) <20 ppb High Normal / Increased: Adult 25-50 ppb, pediatric (<12 years) 20-35 ppb Moderately raised exhaled Nitric Oxide may indicate underlying inflammation, but note that: Cold and influenza can raise exhaled Nitric Oxide and some patients have higher baseline exhaled Nitric Oxide levels than others. High: Adult >50 ppb, pediatric (<12 years) >35 ppb Indicative of ongoing eosinophilic inflammation. Symptomatic patient likely to respond to steroids. Possible causes (if already on steroids): Poor compliance, recent allergen exposure, steroid dose inadequate, and steroid resistance. Note that not all patients with high exhaled nitric oxide levels display symptoms. Oral Exhaled Nitric Oxide measurement (Previous Encounters) Test Date Oral Exhaled Nitric Oxide (ppb) 06/08/2024 79.0 (A) NAME: Radha Ramirez RRT PATIENT NAME: Montse Martinez DATE: June 08, 2024 TIME: 9:54 [facility]10-01-2024 Procedure note* Radha Ramirez RRT - 06/08/2024 9:54 AM EDTAssociated Order(s): NITRIC OXIDE, EXHALED ALLERGY AND IMMUNOLOGY ORAL EXHALED NITRIC OXIDE SERVICE DATE: 06/08/2024 SERVICE TIME: 9:54 AM Oral Exhaled Nitric Oxide measurement: 79.0 (ppb) (A) Normal: Adult <25 ppb, pediatric (<12 years) <20 ppb High Normal / Increased: Adult 25-50 ppb, pediatric (<12 years) 20-35 ppb Moderately raised exhaled Nitric Oxide may indicate underlying inflammation, but note that: Cold and influenza can raise exhaled Nitric Oxide and some patients have higher baseline exhaled Nitric Oxide levels than others. High: Adult >50 ppb, pediatric (<12 years) >35 ppb Indicative of ongoing eosinophilic inflammation. Symptomatic patient likely to respond to steroids. Possible causes (if already on steroids): Poor compliance, recent allergen exposure, steroid dose inadequate, and steroid resistance. Note that not all patients with high exhaled nitric oxide levels display symptoms. Oral Exhaled Nitric Oxide measurement (Previous Encounters) Test Date Oral Exhaled Nitric Oxide (ppb) 06/08/2024 79.0 (A) NAME: Radha Ramirez RRT PATIENT NAME: Montse Martinez DATE: June 08, 2024 TIME: 9:54 AM [facility]10-01[facility] History of Present illness Narrative* Radha Ramirez RRT - 06/08/2024 9:54 AM EDT PULM FUNCTION: Provider: Patrick Hinson MD Spirometry w/BD: 1 Exhaled Nitric Oxide: 1 documented in this encounterKeenan [facility] Hospital10-01-2024 Procedure note* Radha Ramirez RRT - 06/08/2024 9:54 AM EDTAssociated Order(s): NITRIC OXIDE, EXHALED ALLERGY AND IMMUNOLOGY ORAL EXHALED NITRIC OXIDE SERVICE DATE: 06/08/2024 SERVICE TIME: 9:54 AM Oral Exhaled Nitric Oxide measurement: 79.0 (ppb) (A) Normal: Adult <25 ppb, pediatric (<12 years) <20 ppb High Normal / Increased: Adult 25-50 ppb, pediatric (<12 years) 20-35 ppb Moderately raised exhaled Nitric Oxide may indicate underlying inflammation, but note that: Cold and influenza can raise exhaled Nitric Oxide and some patients have higher baseline exhaled Nitric Oxide levels than others. High: Adult >50 ppb, pediatric (<12 years) >35 ppb Indicative of ongoing eosinophilic inflammation. Symptomatic patient likely to respond to steroids. Possible causes (if already on steroids): Poor compliance, recent allergen exposure, steroid dose inadequate, and steroid resistance. Note that not all patients with high exhaled nitric oxide levels display symptoms. Oral Exhaled Nitric Oxide measurement (Previous Encounters) Test Date Oral Exhaled Nitric Oxide (ppb) 06/08/2024 79.0 (A) NAME: Radha Ramirez RRT PATIENT NAME: Montse Martinez DATE: June 08, 2024 TIME: 9:54 AM documented in this encounterKeenan [facility] Hospital09-03-2024 Evaluation note* Diagnosis Onset Date Resolution Status Admit Date Sore throat acute May 3:09pm Hypothyroid acute July 8:55am [facility] Work Phone: 1(879) 418-446605-28-2024 Telephone encounter Note* Telephone Encounter - Anuradha Dave APRN.CNP - 02/03/2024 4:34 PM EDT The following approved medication requests have been transmitted electronically. Requested Prescriptions Signed Prescriptions Disp Refills losartan (COZAAR) 25 mg tablet 90 tablet 3 Sig: take 1 tablet by mouth daily Authorizing Provider: LEV PRICE Ordering User: ANURADHA DAVE APRN.CNP [facility] Work Phone: 1(510) 247-602105-28-2024 Miscellaneous Notes* Telephone Encounter - Anuradha Dave APRN.CNP - 02/03/2024 4:34 PM EDT The following approved medication requests have been transmitted electronically. Requested Prescriptions Signed Prescriptions Disp Refills losartan (COZAAR) 25 mg tablet 90 tablet 3 Sig: take 1 tablet by mouth daily Authorizing Provider: LEV PRICE Ordering User: ANURADHA DAVE APRN.WAGE ANALYST * Telephone Encounter - Yuan Toure RN - 02/03/2024 9:33 AM EDT Received request for refill of the following medications: Requested Prescriptions Pending Prescriptions Disp Refills losartan (COZAAR) 25 mg tablet [Pharmacy Med Name: LOSARTAN POTASSIUM 25 MG TAB] 90 tablet 3 Sig: take 1 tablet by mouth daily Patient requested a 90 day refill. Pharmacy verified and updated accordingly. Patient was last seen in cardiology office: 08/14/23. Upcoming appointment scheduled: none. Labs: Hemoglobin (g/dL) Date Value 05/17/2015 14.7 Hematocrit (%) Date Value 05/17/2015 43.6 WBC (k/uL) Date Value 05/17/2015 7.69 Platelet Count (k/uL) Date Value 05/17/2015 205 Creatinine Date Value Ref Range Status 06/02/2015 0.91 0.70 - 1.40 mg/dL Final Creatinine (POCT) Date Value Ref Range Status 09/04/2015 1.0 0.7 - 1.4 mg/dL Final Comment: Meter ID: [id number] Office Machine Servicer Apprentice: [id number] VIKKI FUNK Location: [facility] [address] [place] [address] documented in this encounterKeenan [facility] Hospital05-28-2024 Telephone encounter Note * Telephone Encounter - Lani Rangel - 02/03/2024 3:21 PM EDT Mikael now scheduled with john and wait listed. Lani Rangel February 03, 2024 [facility]-28-[facility] Miscellaneous Notes* Telephone Encounter - Lani Rangel - 02/03/2024 3:21 PM EDT Mikael now scheduled with john and wait listed. Lani Rangel February 03, 2024 * Telephone Encounter - Yuan Toure RN - 02/03/2024 8:[address] Price last office visit note I recommend checking BMP prior to next visit. Goal LDL is less than 70 mg/dL. Continue rosuvastatin 20 mg nightly. Monitor for myalgias. Check Lipid panel prior to next visit. Goal A1c is less than 7.0%. BMP completed at [facility] on 01/02/24 Lipid panel ordered * Telephone Encounter - Myrna Rhodes RN - 01/26/2024 1:15 PM EDT LMOM asking patient to ask question through [employer] or he can try to call back. Appears he was in ED recently for chest discomfort. Labs look good except his liver enzymes are somewhat elevated. He cancelled his upcoming followup with Dr. Price. Will need rescheduled. documented in this encounterKeenan Private Hospital05-28-2024 Telephone encounter Note * Telephone Encounter - Yuan Toure RN - 02/03/2024 9:33 AM EDT Received request for refill of the following medications: Requested Prescriptions Pending Prescriptions Disp Refills losartan (COZAAR) 25 mg tablet [Pharmacy Med Name: LOSARTAN POTASSIUM 25 MG TAB] 90 tablet 3 Sig: take 1 tablet by mouth daily Patient requested a 90 day refill. Pharmacy verified and updated accordingly. Patient was last seen in cardiology office: 08/14/23. Upcoming appointment scheduled: none. Labs: Hemoglobin (g/dL) Date Value 05/17/2015 14.7 Hematocrit (%) Date Value 05/17/2015 43.6 WBC (k/uL) Date Value 05/17/2015 7.69 Platelet Count (k/uL) Date Value 05/17/2015 205 Creatinine Date Value Ref Range Status 06/02/2015 0.91 0.70 - 1.40 mg/dL Final Creatinine (POCT) Date Value Ref Range Status 09/04/2015 1.0 0.7 - 1.4 mg/dL Final Comment: Meter ID: [id number] Office Machine Servicer Apprentice: [id number] VIKKI FUNK Location: [facility] [address] [place] [address] [facility] Telephone encounter Note* Telephone Encounter - Yuan Toure RN - 02/03/2024 8:[address] Price last office visit note I recommend checking BMP prior to next visit. Goal LDL is less than 70 mg/dL. Continue rosuvastatin 20 mg nightly. Monitor for myalgias. Check Lipid panel prior to next visit. Goal A1c is less than 7.0%. BMP completed at [facility] on 01/02/24 Lipid panel ordered [facility] Telephone encounter Note* Telephone Encounter - Myrna Rhodes RN - 01/26/2024 1:15 PM EDT LMOM asking patient to ask question through [employer] or he can try to call back. Appears he was in ED recently for chest discomfort. Labs look good except his liver enzymes are somewhat elevated. He cancelled his upcoming followup with Dr. Price. Will need rescheduled. [facility]03-20[facility] Hospital Discharge instructions Patient Education 11/26/2023 14:26:03 Dietary Guidelines to Help Prevent Kidney Stones Dietary Guidelines to Help Prevent Kidney Stones Kidney stones are deposits of minerals and salts that form inside your kidneys. Your risk of developing kidney stones may be greater depending on your diet, your lifestyle, the medicines you take, and whether you have certain medical conditions. Most people can lower their risks of developing kidney stones by following these dietary guidelines. Your dietitian may give you more specific instructions depending on your overall health and the type of kidney stones you tend to develop. What are tips for following this plan? Reading food labels Choose foods with no salt added or low-salt labels. Limit your salt (sodium) intake to less than 1,500 mg a day. Choose foods with calcium for each meal and snack. Try to eat about 300 mg of calcium at each meal.Foods that contain 200 500 mg of calcium a serving include: ?8 oz (237 mL) of milk, gwpedvs-aegrilioeciu-wzemp milk, and calcium- fortifiedfruit juice. Calcium-fortified means that calcium has been added to these drinks. ?8 oz (237 mL) of kefir, yogurt, and soy yogurt. ?4 oz (114 g) of tofu. ?1 oz (28 g) of cheese. ?1 cup (150 g) of dried figs. ?1 cup (91 g) of cooked broccoli. ?One 3 oz (85 g) can of sardines or mackerel. Most people need 1,000 1,500 mg of calcium a day. Talk to your dietitian about how much calcium is recommended for you. Shopping Buy plenty of fresh fruits and vegetables. Most people do not need to avoid fruits and vegetables, even if these foods contain nutrients that may contribute to kidney stones. When shopping for convenience foods, choose: ?Whole pieces of fruit. ?Pre-made salads with dressing on the side. ?Low-fat fruit and yogurt smoothies. Avoid buying frozen meals or prepared deli foods. These can be high in sodium. Look for foods with live cultures, such as yogurt and kefir. Choose high-fiber grains, such as whole-wheat breads, oat bran, and wheat cereals. Cooking Do not add salt to food when cooking. Place a salt shaker on the table and allow each person to addtheir own salt to taste. Use vegetable protein, such as beans, textured vegetable protein (TVP), or tofu, instead of meat inpasta, casseroles, and soups. Meal planning Eat less salt, if told by your dietitian. To do this: ?Avoid eating processed or pre-made food. ?Avoid eating fast food. Eat less animal protein, including cheese, meat, poultry, or fish, if told by your dietitian. To dothis: ?Limit the number of times you have meat, poultry, fish, or cheese each week. Eat a diet free of meat at least 2 days a week. ?Eat only one serving each day of meat, poultry, fish, or seafood. ?When you prepare animal proteins, cut pieces into small portion sizes. For most meat and fish, oneserving is about the size of the palm of your hand. Eat at least five servings of fresh fruits and vegetables each day. To do this: ?Keep fruits and vegetables on hand for snacks. ?Eat one piece of fruit or a handful of berries with breakfast. ?Have a salad and fruit at lunch. ?Have two kinds of vegetables at dinner. You may be told to limit foods that are high in a substance called oxalate. These include: ?Spinach (cooked), rhubarb, beets, sweet potatoes, and Cuban chard. ?Peanuts. ?Potato chips, marshallese fries, and baked potatoes with skin on. ?Nuts and nut products. ?Chocolate. If you regularly take a diuretic medicine, make sure to eat at least 1 or 2 servings of fruits or vegetables that are high in potassium each day. These include: ?Avocado. ?Banana. ?[place], prune, carrot, or tomato juice. ?Baked potato. ?Cabbage. ?Beans and split peas. Lifestyle Drink enough fluid to keep your urine pale yellow. This is the most important thing you can do. Spread your fluid intake throughout the day. If you drink alcohol: ?Limit how much you have to: ?0 1 drink a day for women who are not . ?0 2 drinks a day for men. ?Know how much alcohol is in your drink. In the [place] one drink equals one 12 oz bottle of beer (355 mL), one 5 oz glass of wine (148 mL), or one 1 oz glass of hard liquor (44 mL). Lose weight if told by your health care provider. Work with your dietitian to find an eating plan and weight loss strategies that work best for you. General information Talk to your health care provider and dietitian about taking daily supplements. Depending on your health and the cause of your kidney stones, you may be told: ?Do not take high-dose supplements of vitamin C (1,000 mg a day or more). ?To take a calcium supplement. ?To take a daily probiotic supplement. ?To take other supplements such as magnesium, fish oil, or vitamin B6. Take taai-oxy-pesonsq and prescription medicines only as told by your health care provider. These include supplements. What foods should I limit? Limit your intake of the following foods, or eat them as told by your dietitian. Vegetables Spinach. Rhubarb. Beets. Canned vegetables. Pickles. Olives. Baked potatoes with skin. Grains Wheat bran. Baked goods. Salted crackers. Cereals high in sugar. Meats and other proteins Nuts. Nut butters. Large portions of meat, poultry, or fish. Salted, precooked, or cured meats, such as sausages, meat loaves, and hot dogs. Dairy Cheeses. Beverages Regular soft drinks. Regular vegetable juice. Seasonings and condiments Seasoning blends with salt. Salad dressings. Soy sauce. Ketchup. Barbecue sauce. Other foods Canned soups. Canned pasta sauce. Casseroles. Pizza. Lasagna. Frozen meals. Potato chips. [place] fries. The items listed above may not be a complete list of foods and beverages you should limit. Contact a dietitian for more information. What foods should I avoid? Talk to your dietitian about specific foods you should avoid based on the type of kidney stones youhave and your overall health. Fruits Grapefruit. The item listed above may not be a complete list of foods and beverages you should avoid. Contact adietitian for more information. Summary Kidney stones are deposits of minerals and salts that form inside your kidneys. You can lower your risk of kidney stones by making changes to your diet. The most important thing you can do is drink enough fluid. Drink enough fluid to keep your urine pale yellow. Talk to your dietitian about how much calcium you should have each day, and eat less salt and animal protein as told by your dietitian. This information is not intended to replace advice given to you by your health care provider. Make sure you discuss any questions you have with your health care provider. Document Revised: 12/05/2022 Document Reviewed: 12/05/2022 [employer]Settleware Patient Education 2022 [employer]ior. Follow Up Care 06/10/2023 11:01:55 With:HESHAM ELIZALDE, Isreal Renee, URL Address: [facility] [address] , [place] [address]- When: Unknown [facility] 03-11-2024 Miscellaneous Notes* Telephone Encounter - Sabrina Howard MA - 11/17/2023 8:13 AM EDT Last office visit 08/14/23 Future appt scheduled 02/19/24 Last Lipid 08/11/23 panel scanned into labs documented in this [facility]Keen[facility] Evaluation note* Encounter Date Diagnosis Assessment Notes Treatment Notes Treatment Clinical Notes Oct, SOB (shortness of breath) (ICD-10 - R06.02) LogMeIn Other 01-09-2024 Evaluation + Plan noteExtracted from: Title:ED Note Author:Skylar Wright DO Date :09/16/23 Right renal stone (N20.0: Ca lculus of kidney) Orders: acetaminophen-oxycodone, 1 tab(s), Oral, q6hr for 3 day(s), 12 tab(s), Refill(s) 0, [facility] [id number], 175, cm, 09/16/23 3:54:00 EST, Height/Length Dosing, [...] q8hr, # 12 tab(s), Refills(s) 0, Pharmacy: [facility] [id number], 175, cm, 09/16/23 3:54:00 EST, Height/Length Dosing, [...] Daily, # 10 cap(s), Refills(s) 0, [id number], 175, cm, 09/16/23 3:54:00 EST, Height/Length Dosing, 87.5, kg, 09/16/23 3:54:00 EST, Weight Dosing Automated Diff Basic Metabolic Panel CBC w/ Auto Diff CT Abdomen/Pelvis w/o Contrast eGFR Extra Blue Tube Extra SST Tube Hepatic Function Panel UA With Cult Reflex Future Appointments Appointment Date:11/26/2023 02:00:00 PM Scheduled Provider:Isreal DAHL MD Location:[facility] Appointment Type:URO Office Visit [facility]01-09-2024 Hospital Discharge instructions Patient Education 09/16/2023 06:23:14 Renal Colic, Zcxf-yh-Vpfu Renal Colic Renal colic is pain that is caused by a kidney stone. The pain can be sharp and very bad. It may befelt in the back, belly, side (flank), or groin. It can cause nausea. Renal colic can come and go. Follow these instructions at home: Medicines Take mrbz-ysl-wnydesy and prescription medicines only as told by [...] is caused by a kidney stone. Take whej-hbc-malshgb and prescription medicines only as told by [...] provider. Document Revised: 04/29/2022 Document Reviewed: 04/29/2022 Contix Patient Education 2022 [employer]. Follow Up Care 09/16/2023 03:47:07 With:Isreal DAHL Address: [facility] [address] [place] [address]- Business (1) When:09/19/2023 06:04:33 Comments:Take the Flomax once daily. Completed the course. You can use the Percocet, Zofran every 6 hours asneeded for pain and nausea. Please follow-up with your primary care doctor and urology for further evaluation management. If you have worsening pain, develop fever or any concerning symptoms please return to the ED for further treatment. With:SOLE DALEY Address: [facility] TORSTEN HOBBS Jeff [facility] [place] [address] Business (1) When:09/19/2023 06:04:26 [facility]11-15-2023 Evaluation note* Encounter Date Diagnosis Assessment [...] Need for influenza vaccination (ICD-10 - Z23) [employer]MeIn Other 10-03-2023 Hospital Discharge instructions Patient Education [...] urethra. Follow these instructions at home: Take eblv-zkw-jisebhs and prescription medicines only as told by [...] provider. Document Revised: 03/13/2022 Document Reviewed: 03/13/2022 Contix Patient Education 2022 [employer]. Follow Up Care 04/07/2023 10:55:23 With:BRANDEN ELIZALDE, Carlos Enrique Falk, URL Address: [facility] [address] [address]- When:Within 4 Month(s) Comments:w/PVR [facility] 07-31-2023 Hospital Discharge instructions Patient Education 04/07/2023 10:35:44 [...] urethra. Follow these instructions at home: Take yuwr-vta-ssbtobz and prescription medicines only as told by [...] provider. Document Revised: 03/13/2022 Document Reviewed: 03/13/2022 Contix Patient Education 2022 [employer]. Follow Up Care 03/31/2023 11:26:46 With:BRANDEN ELIZALDE, MAX Ha Address: Cindi MELÉNDEZ [address] [place] [address]- When: Unknown [facility] Kin [id number] Hospital Discharge instructions Patient Education 03/24/2023 14:49:03 [...] 03/04/2023 07:59:02 With:Carlos Enrique LEWIS Address: [address] [address] [facility] (1) When:1 week Comments:Call for followup appointment to remove the catheter. Push fluids to keep the urine clear. [facility]06-27-2023 Hospital Discharge instructions Patient Education 03/04/2023 [...] urethra. Follow these instructions at home: Take jyvn-clx-xbxzubt and prescription medicines only as told by [...] provider. Document Revised: 03/13/2022 Document Reviewed: 03/13/2022 Contix Patient Education 2022 [employer]. Follow Up Care 02/17/2023 11:05:09 With:BRANDEN ELIZALDE, Carlos Enrique Falk, URL Address: [address] [place] [address]- When: Unknown [facility] Kin [id number] Hospital Discharge instructions Patient Education 02/17/2023 10:40:13 [...] urethra. Follow these instructions at home: Take qzgu-hig-utrrrug and prescription medicines only as told by [...] provider. Document Revised: 03/13/2022 Document Reviewed: 03/13/2022 Contix Patient Education 2022 [employer]ior. Follow Up Care 12/06/2022 08:34:50 With:BRANDEN ELIZALDE, Carlos Enrique Falk, URL Address: When: Unknown [facility] [place] 06-02-2023 History of Present illness Narrative* Lev Price, - 02/07/2023 9:00 AM EDT Images from the original note were not included. [facility] SECTION OF REGIONAL CARDIOLOGY OUTPATIENT VISIT DATE February 07, 2023 OUTPATIENT VISIT TYPE ESTABLISHED PRIMARY CARE PHYSICIAN: Sole Daley [address] [place] [address] [address] [place] [address] CHIEF COMPLAINT: Arrhythmia HISTORY OF PRESENT ILLNESS: [...] had an enlarged heart. Brother had an MO when he was 72 years of age. 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 Upon further questioning IMPRESSION: Encounter Diagnosis ICD-10-CM [...] tab Take by mouth q 12 HR. Barto-3 Fatty Acids 500 mg cap Take 500 mg by mouth once daily. hvjxtqh-owhn-nphtl-oreg-capryl 100 mg-150 mg- 50 mg-150 mg cap [...] mouth once daily. Signed: Lev Price DO, [facility] February 07, 2023 This note was partially generated using Mettl voice recognition system, and there may be some incorrect words, spellings, and punctuation that were not noted in checking the note before saving. documented in this encounterKeenan Private Hospital04-17-2023 Miscellaneous Notes* Telephone Encounter - Myrna Rhodes RN - 12/23/2022 11:37 AM EDT MyChart message sent. * Telephone Encounter - Elizabeth Wells RN - 12/23/2022 10:53 AM EDT Pt calls For past week in am bp readings 46 608 am 131/78 4/7 604 am 145/90 4/8 653 am 129/85 4/9 613 am 154/95 4/10 60 7 am 131/77 /11 7 am 135/79 Denies sob , trouble breathing, chest pian Agrees to call back if s/s develop He is walking several miles a week /staying active Pt not an bp meds 8-4 appt noted ( pt on wait) Requesting sooner appt Agrees to discuss above with pcp if advised by card office-pleases call pt with office decision Nixon sanderson/yi rodriguez Pharm on dial documented in this encounterKeenan Private Hospital03-24-2023 Nurse Note* Adarsh Wren MA - 11/29/2022 9:16 AM EDT EVENT MONITOR DISPOSABLE PATCH INSTRUCTIONS Patient Name: Montse Martinez [facility] Number: [id number] Skin prepped and cleansed with alcohol Patch secured to prepped area Monitor Activated Serial #: [id number] Patient Instructed: Prescribed order timeframe Bathing guidelines Usage of event button and diary documentation Return of monitor at the end of prescribed order Call with problems [phone] or [phone]. [phone] Patient expresses a good understanding of instructions Adarsh Wren MA documented in this encounterKeenan Private Hospital03-24-2023 History of Present illness Narrative* Lev Price DO - 11/29/2022 8:58 AM EDT Images from the original note were not included. [facility] SECTION OF REGIONAL CARDIOLOGY OUTPATIENT VISIT DATE November 29, 2022 OUTPATIENT VISIT TYPE ESTABLISHED PRIMARY CARE PHYSICIAN: Sole Daley [address] [place] [address] CHIEF COMPLAINT: Arrhythmia HISTORY OF PRESENT ILLNESS: [...] had an enlarged heart. Brother had an MO when he was 72 years of age. 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 Upon further questioning IMPRESSION: Encounter Diagnosis ICD-10-CM [...] tab Take by mouth q 12 HR. Barto-3 Fatty Acids 500 mg cap Take 500 mg by mouth once daily. drzwfos-gpal-hdcog-oreg-capryl 100 mg-150 mg- 50 mg-150 mg cap Take by mouth. cholecalciferol, vitamin D3, 350 mcg (14,000 unit) cap Take by mouth. rosuvastatin (CRESTOR) 20 mg tablet Take 1 tablet by mouth daily at bedtime. Signed: Lev Price DO, [facility] November 29, 2022 This note was partially generated using Mettl voice recognition system, and there may be some incorrect words, spellings, and punctuation that were not noted in checking the note before saving. documented in this encounterKeenan Private Hospital11-10-2022 Evaluation note* Encounter Date Diagnosis Assessment [...] for a healthy life material was published LogMeIn Other 08-30-2022 History and physical note* Nabila Rich MD - 05/07/2022 10:30 AM EDT Images from the original note were not included. [facility] Keri Addison Department of Cardiovascular Medicine SECTION OF CARDIAC PACING and ELECTROPHYSIOLOGY OUTPATIENT VISIT DATE May 07, 2022 OUTPATIENT VISIT TYPE CONSULTATION PRIMARY CARE PHYSICIAN: Sole Daley [address] [place] [address] [address] [place] [address] REFERRING PHYSICIAN SELF CHIEF COMPLAINT: Previously, symptomatic [...] A. Fib --- underwent catheter ablation in 2014, performed by Dr. Smith. He was previously [...] establish with general cardiology. He lives in [facility], and we will facilitate an appointment for [facility]. He does not require regular follow-up with electrophysiology, unless he has recurrence of atrial fibrillation in the future. Nabila Rich MD Electrophysiology staff pager [phone] May 07, 2022 11:17 AM documented in this encounterKeenan Private Hospital08-01-2022 Evaluation note* Encounter Date Diagnosis Assessment Notes Treatment Notes Treatment Clinical Notes Apr, Cough (ICD-10 - R05.9) Apr, COVID-19 (ICD-10 - U07.1) Drink plenty fluids, get plenty of rest. Continue home medications as prescribed. Take Tylenol or Motrin as needed for aches pains or fevers. Follow-up with your family physician if no improvement in 2 to 3 days. LogMeIn Other 07-13-2022 Evaluation note* Encounter Date Diagnosis Assessment Notes Treatment Notes Treatment Clinical Notes Mar, Lower respiratory infection (ICD-10 - J22) [employer]MeIn Other 07-06-2022 Evaluation note* Encounter Date Diagnosis Assessment Notes Treatment Notes Treatment Clinical Notes Mar, Lower respiratory infection (ICD-10 - J22) Discussed his funny feeling side effect r/t Mucinex. Also made patient aware that his blood pressure is elevated likely secondary to the pseudoephedrine and Mucinex. Discontinue the medication and only continue aear-vgo-zkdrwat syrup. Declines Gita Smyth today. Lung randall [...] bacterial infection. Continue to push fluids, utilize dvqb-zzm-joxxcux medications as discussed, get plenty of rest, eat a high-protein diet and follow-up if symptoms persist or worsen. *Progress note was completed with the assistance of voice recognition software for dictation purposes. Please excuse any grammatical errors that were not corrected during review process. LogMeIn Other 09-27-2021 Evaluation note* Encounter Date Diagnosis [...] Flu vaccine need (IC D-10 - Z23) LogMeIn Other Evaluation + Plan note Future Appointments Appointment Date:03/04/2023 07:30:00 AM Scheduled Provider:Carlos Enrique LEWIS MD Location:[facility] [place] Appointment Type:URO Procedure 15 min [facility] [place] Evaluation + Plan note Future Appointments Appointment Date:03/10/2023 12:45:00 PM Scheduled Provider: Location:[facility] Appointment Type:Urology CALL PAT Appointment Date:03/24/2023 02:15:00 PM Scheduled Provider: Location:[facility] Appointment Type:Urology FT [facility] Evaluation + Plan note Future Appointments Appointment Date:03/31/2023 11:00:00 AM Scheduled Provider: Location:[facility] Appointments Appointment Date:06/10/2023 10:00:00 AM Scheduled Provider:Carlos Enrique LEWIS MD Location:[facility] Appointment Type:URO Office Visit [facility] Evaluation + Plan note Future Appointments Appointment Date:10/06/2023 09:30:00 AM Scheduled Provider:Carlos Enrique LEWIS MD Location:[facility] Appointment Type:URO Office Visit [facility] Evaluation + Plan note Future Appointments Appointment Date:05/25/2024 08:00:00 AM Scheduled Provider:Isreal DAHL MD Location:[facility] Appointment Type:URO Office Visit Diagnostic Tests Pending * Electrolyte Panel 11/26/23 [facility] evaluation + Plan note Future Appointments Appointment Date:06/23/2024 02:30:00 PM Scheduled Provider:Isreal DAHL MD Location:[facility] Appointment Type:URO Office Visit [facility] Evaluation + Plan note Future Appointments Appointment Date:12/07/2024 08:45:00 AM Scheduled Provider:Carlos Enrique LEWIS MD Location:[facility] Appointment Type:URO Office Visit Diagnostic Tests Pending * PSA Total 06/23/24 [facility] evaludnbir noteNo [facility] Datac[employer] Other Evaluukalm note* Diagnosis PAF (paroxysmal atrial fibrillation) (HCC)- Primary Atrial fibrillation documented in this encounter [facility] noteNo assessment information availableSelect [facility] Work Phone: Evaluation note* Diagnosis Paroxysmal atrial fibrillation (HCC)- Primary Atrial fibrillation Elevated blood pressure reading without diagnosis of hypertension Mixed hyperlipidemia Overweight (BMI 25.0-29.9) Overweight documented in this encounter [facility] note* Diagnosis Paroxysmal atrial fibrillation (HCC)- Primary Atrial fibrillation Primary hypertension Unspecified essential hypertension Mixed hyperlipidemia Overweight (BMI 25.0-29.9) Overweight [facility]* Diagnosis Mixed hyperlipidemia [facility]* Diagnosis Mixed hyperlipidemia- Primary documented in this encounter [facility] note* Diagnosis Primary hypertension Unspecified essential hypertension [facility]* Diagnosis Wheezing- Primary [facility]* Diagnosis Asthma with chronic obstructive pulmonary disease (COPD) (HCC)- Primary Chronic obstructive asthma, unspecified Shortness of breath Former smoker Personal history of tobacco use, presenting hazards to health Lung nodules Other nonspecific abnormal finding of lung field [facility]* Diagnosis Asthma with chronic obstructive pulmonary disease (COPD) (HCC)- Primary Chronic obstructive asthma, unspecified [facility]* Diagnosis Paroxysmal atrial fibrillation (HCC)- Primary Atrial fibrillation Primary hypertension Unspecified essential hypertension Mixed hyperlipidemia Overweight (BMI 25.0-29.9) Overweight documented in this encounter [facility] note* Diagnosis Asthma with chronic obstructive pulmonary disease (COPD) (HCC) Chronic obstructive asthma, unspecified [facility]* Diagnosis Asthma with chronic obstructive pulmonary disease (COPD) (HCC)- Primary Chronic obstructive asthma, unspecified [facility]* Diagnosis Asthma with chronic obstructive pulmonary disease (COPD) (HCC)- Primary Chronic obstructive asthma, unspecified Chronic obstructive pulmonary disease, unspecified COPD type (HCC) Seasonal allergic rhinitis, unspecified trigger [facility]* Diagnosis Paroxysmal atrial fibrillation (HCC)- Primary Atrial fibrillation Primary hypertension Unspecified essential hypertension Mixed hyperlipidemia Murmur, cardiac Undiagnosed cardiac murmurs Overweight (BMI 25.0-29.9) Overweight documented in this encounter [facility] note* Diagnosis Asthma with chronic obstructive pulmonary disease (COPD) (HCC) Chronic obstructive asthma, unspecified [facility]* Diagnosis Primary hypertension Unspecified essential hypertension documented in this encounter [facility] note* Diagnosis Onychomycosis- Primary Dermatophytosis of nail Pain in toes of both feet [place]gus deformity of both great toes Hammertoes of both feet [facility] N[facility] - Reported* Type Description Date Medical History Hypothyroid Medical History OA - shoulder Medical History Afib - see Cardiology Medical History Hyperchol Surgical History Bilat Shoulder 2008 Surgical History Umbilical Hernia 1995 Surgical History Left Cheek age 11 Surgical History cardiac ablation 05/2015 Hospitalization History Left Cheek Hospitalization History Syncope Episode 2006 [employer] Other History general Narrative - Reported* Type Description Date Medical History Hypothyroid Medical History OA - shoulder Medical History Afib - see Cardiology Medical History Hyperchol Surgical History Bilat Shoulder 2008 Surgical History Umbilical Hernia 1994 Surgical History Left Cheek age 11 Surgical History cardiac ablation 05/2015 Surgical History Colonoscopy 05/2021 Hospitalization History Left Cheek Hospitalization History Syncope Episode 2006 [employer] Other Hisigfj general Narrative - Reported* Type Description Date Medical History Hypothyroid Medical History OA - shoulder Medical History Afib - see Cardiology Medical History Hyperchol Surgical History Bilat Shoulder 2008 Surgical History Umbilical Hernia 1995 Surgical History Left Cheek age 11 Surgical History cardiac ablation 05/2015 Surgical History Colonoscopy 05/2021 Surgical History Prostate Urolift 05/2023 Hospitalization History Left Cheek Hospitalization History Syncope Episode 2006 [facility] Other Hisesin general Narrative - Reported* Type Description Date Medical History Hypothyroid Medical History OA - shoulder Medical History Afib - see Cardiology Medical History Hyperchol Surgical History Bilat Shoulder 2008 Surgical History Umbilical Hernia 1994 Surgical History Left Cheek age 11 Surgical History cardiac ablation 05/2015 Surgical History Colonoscopy 05/2021 Surgical History Prostate Urolift 05/2023 Surgical History lithotripsy 07/2023 Surgical History laser kidney stone removal 08/09 023 Hospitalization History Left Cheek Hospitalization History Syncope Episode 2006 [facility] Other Hospital course Narrative No data available for this section [facility] Hospital Discharge instructions No data available for this section [facility] Progress note No data available for this section [facility] Reason for referral (narrative)* Outpatient Procedure (Routine) - Authorized Specialty Diagnoses / Procedures Referred By Contac t Referred To Contact [facility] Diagnoses Paroxysmal atrial fibrillation (HCC) Procedures ECG COMPLETE ECG ROUTINE ECG W/LEAST 12 LDS W/I&R Lev Price DO [address] [place] [address] [address] Referral ID Status Reason Start Date Expiration Date Visits Requested Visits Authorized [id number] Authorized Auto-Generat ed Referral 11/29/2022 11/29/2023 1 1 [facility] for referral (narrative)* Outpatient Procedure (Routine) - Pending Review Specialty Diagnoses / Procedures Referred By Contac t [facility] Diagnoses Asthma with chronic obstructive pulmonary disease (COPD) ([facility]) Procedures NITRIC OXIDE, EXHALED NITRIC OXIDE [place] [address] [place] [address] [facility] [address] [place] [id number] Referral ID Status Reason Start Date Expiration Date Visits Requested Visits Authorized [id number] Pending Review Auto-Generat ed Referral 06/08/2024 07/08/2025 1 1 T [facility] for referral (narrative)* Outpatient Procedure (Routine) - New Request Specialty Diagnoses / Procedures Referred By Contac t Referred To Contact [facility] Diagnoses Primary hypertension Paroxysmal atrial fibrillation (HCC) Procedures ECG COMPLETE ECG ROUTINE ECG W/LEAST 12 LDS W/I&R Lev Price DO [address] [place] [address] [facility] [place] [address] Referral ID Status Reason Start Date Expiration Date Visits Requested Visits Authorized [id number] New Request Auto-Generat ed Referral 06/17/2025 1 1 [facility] Chief Complaint and Reason for Visit Chief Complaint E78.00;Z12.5;R53.83; R73.01 Chief Complaint kidney stones Chief Complaint kidney stones Kidney Stones Chief Complaint kidney stones Kidney Stones E78.2 Chief Complaint E78.2 N20.0 Chief Complaint Med Wellness E78.2 N20.0 Kidney stones Chief Complaint E78.2 N20.0 Kidney stones Shortness of Breath Chief Complaint Shortness of Breath N20.0 R82.991 Chief Complaint sore throat Chief Complaint Admit Date sore throat May 11, 2024 3:09pm yearly wellness July 27, 2024 8:55am Reason for Visit Admit Date Sore throat May 11, 2024 3:09pm Hypothyroid July 27, 2024 8:55am Chief Complaint Admit Date yearly wellness July 27, 2024 8:55am R73.01 Z12.5 E03.9 July 29, 2024 9:13am e03.9 September 14, 2024 1: 40pm Reason for Visit Admit Date Hypothyroid July 27, 2024 8:55am Medicare annual wellness visit, subseque nt July 27, 2024 8:55am Advance Directives No Advanced Directives Records Found Advance Directive Response Recorded Date/ Time Advance Directives No June 16, 2018 6:29am Advance Directive Response Recorded Date/ Time Advance Directives No June 16, 2018 7:29am Family History No Family History Records Found Relationship Condition Age at Onset Recorded Date/T jory father Unknown Family history of pancreatic cancer Unkno wn Malignant neoplasm Unknown grandparent Diabetes mellitus Unknown Not Specified Unknown Heart disease Unknown Summary Purpose Additional Source Comments Source Comments (unrecognize d section and content) In the event this informatio n is protected by the Federal Confidentiality of Alcohol and Drug Abuse Patient Records regulations: The Federal rules restrict any use of the information to criminally investigate or prosecute any alcohol or drug abuse patient[facility] event this information is protected by the Federal Confidentiality of Alcohol and Drug Abuse Patient Records regulations: The Federal rules restrict any use of the information to criminally investigate or prosecute any alcohol or drug abuse patient.[facility] the event this information is protected by the Federal Confidentiality of Alcohol and Drug Abuse Patient Records regulations: The Federal rules restrict any use of the information to criminally investigate or prosecute any alcohol or drug abuse patient.[facility] the event this information is protected by the Federal Confidentiality of Alcohol and Drug Abuse Patient Records regulations: The Federal rules restrict any use of the information to criminally investigate or prosecute any alcohol or drug abuse patient.[facility] the event this information is protected by the Federal Confidentiality of Alcohol and Drug Abuse Patient Records regulations: The Federal rules restrict any use of the information to criminally investigate or prosecute any alcohol or drug abuse patient.[facility] the event this information is protected by the Federal Confidentiality of Alcohol and Drug Abuse Patient Records regulations: The Federal rules restrict any use of the information to criminally investigate or prosecute any alcohol or drug abuse patient.[facility] the event this information is protected by the Federal Confidentiality of Alcohol and Drug Abuse Patient Records regulations: The Federal rules restrict any use of the information to criminally investigate or prosecute any alcohol or drug abuse patient.[facility] the event this information is protected by the Federal Confidentiality of Alcohol and Drug Abuse Patient Records regulations: The Federal rules restrict any use of the information to criminally investigate or prosecute any alcohol or drug abuse patient.[facility] the event this information is protected by the Federal Confidentiality of Alcohol and Drug Abuse Patient Records regulations: The Federal rules restrict any use of the information to criminally investigate or prosecute any alcohol or drug abuse patient.[facility] the event this information is protected by the Federal Confidentiality of Alcohol and Drug Abuse Patient Records regulations: The Federal rules restrict any use of the information to criminally investigate or prosecute any alcohol or drug abuse patient.[facility] the event this information is protected by the Federal Confidentiality of Alcohol and Drug Abuse Patient Records regulations: The Federal rules restrict any use of the information to criminally investigate or prosecute any alcohol or drug abuse patient.[facility] the event this information is protected by the Federal Confidentiality of Alcohol and Drug Abuse Patient Records regulations: The Federal rules restrict any use of the information to criminally investigate or prosecute any alcohol or drug abuse patient.[facility] the event this information is protected by the Federal Confidentiality of Alcohol and Drug Abuse Patient Records regulations: The Federal rules restrict any use of the information to criminally investigate or prosecute any alcohol or drug abuse patient.[facility] the event this information is protected by the Federal Confidentiality of Alcohol and Drug Abuse Patient Records regulations: The Federal rules restrict any use of the information to criminally investigate or prosecute any alcohol or drug abuse patient.[facility] the event this information is protected by the Federal Confidentiality of Alcohol and Drug Abuse Patient Records regulations: The Federal rules restrict any use of the information to criminally investigate or prosecute any alcohol or drug abuse patient.[facility] the event this information is protected by the Federal Confidentiality of Alcohol and Drug Abuse Patient Records regulations: The Federal rules restrict any use of the information to criminally investigate or prosecute any alcohol or drug abuse patient.[facility] the event this information is protected by the Federal Confidentiality of Alcohol and Drug Abuse Patient Records regulations: The Federal rules restrict any use of the information to criminally investigate or prosecute any alcohol or drug abuse patient.[facility] the event this information is protected by the Federal Confidentiality of Alcohol and Drug Abuse Patient Records regulations: The Federal rules restrict any use of the information to criminally investigate or prosecute any alcohol or drug abuse patient.[facility] the event this information is protected by the Federal Confidentiality of Alcohol and Drug Abuse Patient Records regulations: The Federal rules restrict any use of the information to criminally investigate or prosecute any alcohol or drug abuse patient.[facility] Care Teams (unrecognized sec tion and content) Team Status: Active Member Role Status Dates Sole Daley DO Primary Care Provider Active Team Status: Inactive Member Role Status Dates Sole Daley DO Primary Care Provider Active Isreal Dahl MD Attending Provider Active Management Services Technician Relationship Specialty Start Date End Date Sole Daley DO [address] [facility] [address] [place] [address] PCP - General Family Practice 03/02/15 Madonna Smith MD [address] [place], [place] [id number] Primary Staff Physician Cardiology 11/24/18 Management Services Technician Relationship Specialty Start Date End Date Sole Daley DO [address] [facility] [address] [place] [address] PCP - General Family Practice 03/02/15 Madonna Smith MD [address] [place] [address] Primary Staff Physician Cardiology 11/24/18 Team Status: Inactive Member Role Status Dates Sole Daley DO Primary Care Provider, Attending Provider Active Management Services Technician Relationship Specialty Start Date End Date Sole Daley DO [address] [place] [address] 2 [place] [address] PCP - General Family Medicine 03/02/15 Madonna Smith MD [address] [place] [address] Primary Staff Physician Cardiology 11/24/18 Management Services Technician Relationship Specialty Start Date End Date Sole Daley DO [address] [place] [address] 2 [place] [address] PCP - General Family Medicine 03/02/15 Madonna Smith MD [address] [place] [address] Primary Staff Physician Cardiology 11/24/18 Management Services Technician Relationship Specialty Start Date End Date Sole Daley DO [address] [place] [address] 2 [place] [address] PCP - General Family Medicine 03/02/15 Madonna Smith MD [address] [place] [address] [address] [place] [address] Primary Staff Physician Cardiology 11/24/18 Team Status: Inactive Member Role Status Dates Sole Daley DO Primary Care Provider Active Lev Price , Attending Provider Active Team Status: Inactive Member Role Status Dates Sole Daley DO Primary Care Provider Active Start: August 11, 2023 End: August 11, 2023 Lev Price , Attending Provider Active Start: August 11, 2023 End: August 11, 2023 Team Status: Inactive Member Role Status Dates Sole Daley DO Primary Care Provider Active Start: September 24, 2023 End: September 24, 2023 Isreal Dahl MD Attending Provider Active St art: September 24, 2023 End: September 24, 2023 Team Status: Inactive Member Role Status Dates Sole Daley DO Attending Provider Active S tart: July 23, 2023 End: July 23, 2023 Team Status: Inactive Member Role Status Dates Sole Daley DO Primary Care Provider Active Start: September 26, 2023 End: September 26, 2023 Isreal Dahl MD Attending Provider Active St art: September 26, 2023 End: September 26, 2023 Team Status: Inactive Member Role Status Dates Sole Daley DO Primary Care Provid er, Attending Provider Active Start: October 20, 2023 End: October 20, 2023 Management Services Technician Relationship Specialty Start Date End Date Sole Daley DO [address] [address] PCP - General Family Medicine 03/02/15 Madonna Smith MD [address] [address] Primary Staff Physician Cardiology 11/24/18 Team Status: Inactive Member Role Status Dates Sole Daley DO Primary Care Provider Active Start: December 31, 2023 End: December 31, 2023 Isreal Dahl MD Attending Provider Active St art: December 31, 2023 End: December 31, 2023 Management Services Technician Relationship Specialty Start Date End Date Sole Daley DO [address] [address] PCP - General Family Medicine 03/02/15 Madonna Smith MD [address] [address] Primary Staff Physician Cardiology 11/24/18 Management Services Technician Relationship Specialty Start Date End Date Sole Daley DO [address] [address] PCP - General Family Medicine 03/02/15 Madonna Smith MD [address] [address] Primary Staff Physician Cardiology 11/24/18 Team Status: Inactive Member Role Status Dates Sole Daley DO Primary Care Provider Active Start: May 11, 2024 End: May 11, 2024 Jose De Jesus Lechuga PA-C Attending Provider Active St art: May 11, 2024 End: May 11, 2024 Management Services Technician Relationship Specialty Start Date End Date Sole Daley DO [address] [address] PCP - General Family Medicine 03/02/15 Madonna Smith MD [address] [address] Primary Staff Physician Cardiology 11/24/18 Management Services Technician Relationship Specialty Start Date End Date Sole Daley DO [address] [address] PCP - General Family Medicine 03/02/15 Madonna Smith MD [address] [address] Primary Staff Physician Cardiology 11/24/18 Management Services Technician Relationship Specialty Start Date End Date Sole Daley DO [address] [address] PCP - General Family Medicine 03/02/15 Madonna Smith MD [address] [address] Primary Staff Physician Cardiology 11/24/18 Team Status: Active Member Role Status Dates Sole Daley DO Primary Care Provid er, Attending Provider Active Start: June 08, 2024 Team Status: Inactive Member Role Status Dates Sole Daley DO Primary Care Provid er, Attending Provider Active Start: July 27, 2024 End: July 27, 2024 Team Status: Inactive Member Role Status Dates Sole Daley DO Primary Care Provid er, Attending Provider Active Start: July 29, 2024 End: July 29, 2024 Team Status: Inactive Member Role Status Dates Sole Daley DO Primary Care Provid er, Attending Provider Active Start: September 14, 2024 End: September 14, 2024 Management Services Technician Relationship Specialty Start Date End Date Sole Daley DO [address] [address] PCP - General Family Medicine 03/02/15 Madonna Smith MD [address] [address] Primary Staff Physician Cardiology 11/24/18 Management Services Technician Relationship Specialty Start Date End Date Sole Daley DO [address] [address] PCP - General Family Medicine 03/02/15 Madonna Smith MD [address] [address] Primary Staff Physician Cardiology 11/24/18 Management Services Technician Relationship Specialty Start Date End Date Sole Daley DO [address] [address] PCP - General Family Medicine 03/02/15 Madonna Smith MD [address] [address] Primary Staff Physician Cardiology 11/24/18 Management Services Technician Relationship Specialty Start Date End Date Sole Daley DO [address] [facility] 2 [place] [address] PCP - General Family Medicine 03/02/15 Madonna Smith MD [address] [address] Primary Staff Physician Cardiology 11/24/18 Management Services Technician Relationship Specialty Start Date End Date Sole Daley MD [address] [phone] PCP - General Family Medicine 03/02/25 Management Services Technician Relationship Specialty Start Date End Date Sole Daley MD [address] [phone] PCP - General Family Medicine 03/02/25 REASON FOR VISIT (unrecogniz ed section and content) Reason Comments CARD New Patient Consult Afib ablation 2 016 Reason Comments CARD New Patient Consult Reason Comments Patient Update Reason Comments Cardiology Follow Up Reason Comments Refill Request Reason Comments Spirometry Specialty Diagnoses / Procedures Referred By Contac t Referred [facility] Diagnoses Wheezing Procedures NITRIC OXIDE, EXHALED NITRIC [place] [address] [place] [address] [facility] [address] [place] [address] Referral ID Status Reason Start Date Expiration Date V isits Requested Visits Authorized [id number] Closed Auto-Generate d Referral 03/05/2024 04/04/2025 1 1 Specialty Diagnoses / Procedures Referred By Contac t Referred To [facility] Diagnoses Wheezing Procedures SPIROMETRY - BASELINE AND POST DILATOR BRNCDILAT RSPSE SPMTRY PRE&[place] [address] [place] [address] [facility] [address] [place] [address] Referral ID Status Reason Start Date Expiration Date V isits Requested Visits Authorized [id number] Closed Auto-Generate d Referral 03/05/2024 04/04/2025 1 1 Reason Comments Consult Asthma Reason Comments CARD Follow Up 6 Month Reason Onset Date Comments Refill Request 09/16/2024 Specialty Diagnoses / Procedures Referred By Contulises t Referred To [facility] Diagnoses Asthma with chronic obstructive pulmonary disease (COPD) (HCC) Procedures NITRIC OXIDE, EXHALED NITRIC OXIDE [place] [address] [place] [address] Phone: tel: fax: [facility] [address] [place] [address] Referral ID Status Reason Start Date Expiration Date V isits Requested Visits Authorized [id number] Closed Auto-Generate d Referral 06/08/2024 07/08/2025 1 1 Reason Comments CARD Follow Up 6 Month Goals (unrecognized section and content) Goals may be documented in a n alternate section (unrecognized sect ion and content) No Status Records FoundNo Status Records FoundNo Status Records FoundNo Status Records Found INFORMATION SOURCE (unrecogn ized section and content) DATE CREATED AUTHOR 09/20/2024 [facility] DATE CREATED AUTHOR AUTHOR'S ORGANIZ ATION 12/10/2024 [facility] DATE CREATED AUTHOR AUTHOR'S ORGANIZ ATION 02/02/2025 [facility] DATE CREATED AUTHOR AUTHOR'S ORGANIZ ATION 03/03/2025 [facility] EPIC FOR RECORDS PERTAINING TO PATIENTS WHO ARE [...] BE BASED ON THE PRIMARY CLINICAL RECORDS. [employer] provides no warranty or guarantee of the accuracy or completeness of information in this document.
--- NOTE | 2025-04-23 16:38 | XR_ITS ---
The [address] [address] Patient Name: MONTSE MARTINEZ MRN: [id number] date: 1950 Sex: M Assigned Patient Location: ER Current Patient Location: ER Accession/Order Number: [id number] Exam Date: 04/23/2025 18:10 Report Date: 04/23/2025 18:11 At the request of: MARSHALL SEPULVEDA MD Procedure: XR finger RT min 2V Right thumb 3 views. Reason for exam: Laceration from table saw of the first digit. COMPARISON: None. FINDINGS: Soft tissue defect is seen involving the distal aspect of the thumb without fracture noted involving the distal phalanx. Degenerative changes are seen involving the carpus particularly involving the CMC joint of the thumb as well as the scaphotrapezial joint. No bony erosions. XR/XR finger RT min 2V IMPRESSION: Soft tissue defect with associated tuft fracture involving the distal aspect of the thumb. Impression dictated by: Mitch Shay Jr., D.O. 04/23/2025 6:11 PM Dictation Location: [facility] Electronically authenticated by: [id number] Y Date: 04/23/2025 18:11
--- NOTE | 2025-04-23 17:29 | ED.SKABFB1 ---
HPI - Skin/Abscess/Foreign Bdy General Chief complaint: Skin/Abscess/Foreign Body Stated complaint: UE INJURY Time Seen by Provider: 04/23/25 17:24 Source: patient Mode of arrival: walk-in History of Present Illness HPI narrative: 74 year old male presents to the ED for an injury to his right thumb. He accidentally injury his thumb with a table saw today. His tetanus status is unknown. Denies weakness, N/T. Related Data Home Medications ?Medication ?Instructions ?Recorded ?Confirmed ascorbic acid (vitamin C) 500 mg 500 mg PO DAILY 07/28/23 09/17/23 capsule fiber cap PO 07/28/23 levothyroxine 50 mcg tablet 125 mcg PO DAILY 07/28/23 09/17/23 losartan 25 mg tablet 25 mg PO DAILY 07/28/23 09/17/23 multivitamin (Daily Multi-Vitamin 1 tab PO DAILY 07/28/23 09/17/23 tablet) rosuvastatin 20 mg tablet 20 mg PO DAILY 07/28/23 09/17/23 saw palmetto 450 mg capsule 450 mg PO BID 07/28/23 09/17/23 aspirin 325 mg capsule 81 mg PO DAILY 09/17/23 09/17/23 oxycodone-acetaminophen 5 mg-325 1 tab PO Q6H PRN pain 09/17/23 09/17/23 mg tablet tamsulosin 0.4 mg capsule 0.4 mg PO Q24H 09/17/23 09/17/23 Previous Rx's ?Medication ?Instructions ?Recorded cephalexin 500 mg tablet 500 mg PO Q8H 10 days #30 tabs 04/23/25 hydrocodone 5 mg-acetaminophen 325 1 tab PO Q8H PRN pain 5 days #15 04/23/25 mg tablet tabs Allergies Allergy/AdvReac Type Severity Reaction Status Date / Time No Known Drug Allergies Allergy Verified 09/17/23 10:12 Review of Systems ROS Constitutional Denies: fever or chills Cardiovascular Denies: chest pain Respiratory Denies: shortness of breath Musculoskeletal Reports: other (pain right thumb) Integumentary/Breast Reports: other (right thumb laceration) Neurological Denies: numbness in extremities or weakness in extremities PFS PFS Medical History (Updated 04/23/25 @ 19:12 by Jovana Clemons) Colon polyps ?K63.5 - Polyp of colon (ICD-10) COVID-19 ?U07.1 - COVID-19 (ICD-10) Seasonal allergies ?J30.2 - Other seasonal allergic rhinitis (ICD-10) Kidney stones ?N20.0 - Calculus of kidney (ICD-10) Diverticulosis ?K57.90 - Diverticulosis of intestine, part unspecified, without perforation or abscess without bleeding (ICD-10) High cholesterol ?E78.00 - Pure hypercholesterolemia, unspecified (ICD-10) Hypertension ?I10 - Essential (primary) hypertension (ICD-10) Hypothyroidism ?E03.9 - Hypothyroidism, unspecified (ICD-10) Atrial fibrillation ?I48.91 - Unspecified atrial fibrillation (ICD-10) History of cardioversion ?Z92.89 - Personal history of other medical treatment (ICD-10) Surgical History (Updated 09/17/23 @ 10:17 by Jocelyn Moreland) S/P dissection of cervical lymph nodes ?Z98.890 - Other specified postprocedural states (ICD-10) S/P cystoscopy ?Z98.890 - Other specified postprocedural states (ICD-10) History of hernia repair ?Z98.890 - Other specified postprocedural states (ICD-10) ?Z87.19 - Personal history of other diseases of the digestive system (ICD-10) History of arthroscopy of shoulder ?Z98.890 - Other specified postprocedural states (ICD-10) History of colonoscopy ?Z98.890 - Other specified postprocedural states (ICD-10) Family History (Updated 09/17/23 @ 10:26 by Jocelyn Joyce) Other Arthritis Cerebral hemorrhage Family history of diabetes mellitus Family history of heart disease Family history of myocardial infarction Family history of pancreatic cancer Social History (Updated 09/17/23 @ 10:26 by Jocelyn Joyce) Within the past year, how often did you have a drink containing alcohol: never Score interpretation: A score less than 4 is consistent with normal alcohol consumption. Smoking status: Former smoker Non-prescribed substance use: denies use Previous occupational history: retired Highest level of school completed/degree received: high school graduate Little interest or pleasure in doing things: not at all Feeling down, depressed, or hopeless: not at all Exam Constitutional Vital Signs, click to edit/add: Last Vital Signs Temp 98.2 F 04/23/25 16:33 Pulse 61 04/23/25 16:33 Resp 18 04/23/25 16:33 BP 132/96 H 04/23/25 16:33 Pulse Ox 97 04/23/25 16:33 O2 Del Method Room Air 04/23/25 16:33 Common normals: no apparent distress and oriented x3 General appearance: cooperative Eye Common normals: conjunctivae normal and no scleral icterus Neck & C-Spine Common normals: supple Chest Chest: symmetrical chest wall rise Respiratory Effort & inspection: symmetric chest movement Cardio Common normals: regular rate Peripheral pulses: radial pulses present Extremity Other: Laceration to right thumb. The laceration is vertical and extends vertically through the nail. It is through and through the distal aspect of the digit and extends to the medial portion dist distal to the IP joint. There is a deformity. No active bleeding. Full ROM to the digit. Distal sensation intact. Neuro Common normals: oriented x3 and moves all extremities Sensorium/orientation: awake and alert Speech: speech normal Gait (neuro): normal gait Course Vital Signs Vital signs: Vital Signs Temperature 98.2 F 04/23/25 16:33 Pulse Rate 61 04/23/25 16:33 Respiratory Rate 18 04/23/25 16:33 Blood Pressure 132/96 H 04/23/25 16:33 Pulse Oximetry 97 04/23/25 16:33 Oxygen Delivery Method Room Air 04/23/25 16:33 Temperature 98.2 F 04/23/25 16:33 Pulse Rate 61 04/23/25 16:33 Respiratory Rate 18 04/23/25 16:33 Blood Pressure 132/96 H 04/23/25 16:33 Pulse Oximetry 97 04/23/25 16:33 Oxygen Delivery Method Room Air 04/23/25 16:33 MDM - Skin/Abscess/Foreign Bdy MDM Narrative Medical decision making narrative: X-ray showed soft tissue defect with associated tuft fracture involving the distal aspect of the thumb. His wound was irrigated. Sutures were placed. The nail was splint into three sections. A portion of the distal medial nail was removed due to it being loose. A dressing and finger splint were applied. The application was checked and was appropriate; the RUE remained NVI. OARRS was reviewed. Prescriptions were provided for Keflex and Steele. Follow up with an orthopedist/hand specialist for a recheck, further evaluation and treatment. Wound care instructions were discussed. Medical Records Attestation: I reviewed the patient's medical records. Imaging Data XR: Attestation: I have reviewed the pertinent imaging results. Radiologist's impression: ITS Impressions Finger X-Ray 04/23/25 16:38 IMPRESSION: Soft tissue defect with associated tuft fracture involving the distal aspect of the thumb. Impression dictated by: Mitch Shay Jr., D.O. 04/23/2025 6:11 PM Dictation Location: [employer] Electronically authenticated by: [id number] Y Date: 04/23/2025 18:11 Discharge Plan Discharge Chief Complaint: Skin/Abscess/Foreign Body Clinical Impression: Open fracture of finger of right hand, Laceration of thumb Patient Disposition: Home, Self-Care Time of Disposition Decision: 19:11 Condition: Good Mode of Transportation: Private Vehicle Prescriptions / Home Meds: New hydrocodone-acetaminophen 5-325 mg tablet 1 tab PO Q8H PRN (Reason: pain) 5 Days Qty: 15 0RF cephalexin 500 mg tablet 500 mg PO Q8H 10 Days Qty: 30 0RF No Action rosuvastatin 20 mg tablet 20 mg PO DAILY losartan 25 mg tablet 25 mg PO DAILY levothyroxine 50 mcg tablet 125 mcg PO DAILY multivitamin [Daily Multi-Vitamin] Tablet 1 tab PO DAILY fiber Capsule PO saw palmetto 450 mg capsule 450 mg PO BID Rx Instructions: give with food (meal/snack) ascorbic acid (vitamin C) 500 mg capsule 500 mg PO DAILY Rx Instructions: 500 daily; aspirin 325 mg capsule 81 mg PO DAILY Rx Instructions: 81 orally daily; tamsulosin 0.4 mg capsule 0.4 mg PO Q24H oxycodone-acetaminophen 5-325 mg tablet 1 tab PO Q6H PRN (Reason: pain) Print Language: American Instructions: Laceration (ED), Finger Fracture (ED) Additional Instructions: Keep the wound clean and dry. Do not soak the wound. Watch for signs of infection: redness, purulent drainage, increased warmth, swelling. Referrals: Julio Crump DO [Physician, Orthopedics] - 04/25/25 [facility] [Primary Care Provider, Family Practice] - 1 week Discharge Date/Time: 04/23/25 19:41 Procedures ED Laceration Laceration Laceration 1: Site: hand (right thumb) Side (if applicable): right Size (cm): 3 Description: irregular Anesthesia technique: nerve block (50/50 mixture of bupivacaine and 1% lidocaine) Pre-repair: wound explored and irrigated extensively Skin layer closed with: other (Nylon) Size (cm): 5-0 Number of sutures: 11 Technique: simple, interrupted Subcutaneous layer closed with: other
[2025-04-23] MEDS: LIDOCAINE HCL 1% 100 MG/10 ML MDV INJ (17:54)
[2025-04-23] MEDS: BUPIVACAINE HCL 0.5% PF 50 MG/10 ML VIAL INJ (17:54)
[2025-04-23] MEDS: DIPHTH,PERTUSS(ACELL),TET VAC 0.5 ML SYRINGE IM (18:35)
[2025-04-23] MEDS: CEFAZOLIN SODIUM 1,000 MG, WATER FOR INJECTION,STERILE 2.5 ML IM (19:25)
== END 2025-04-23 19:41 | disposition home or self-care (01) ==
PROVIDERS: Emergency Provider Emergency Medicine; PCP Family Medicine
DX: S62.521B Displaced fracture of distal phalanx of right thumb, initial encounter for open fracture (principal); W27.0XXA Contact with workbench tool, initial encounter
CPT/HCPCS: 12002; 73140; 90471; 90715; 96372; 99283; J0665; J0690